=== PATIENT | female | born 1935 | race Caucasian/White ===

== ENCOUNTER 2019-10-21 06:29 | Emergency (ER) | payer MEDICARE, SELFPAY ==
--- NOTE | ~2019-10-21 | XR_ITS ---
EXAMINATION: XR chest 2V DATE: 10/21/2019 07:57 INDICATION: Cough and fever TECHNIQUE: PA and lateral views of the chest were obtained. COMPARISON: Chest radiograph and CT dated 07/22/2019 FINDINGS: The lungs are clear with no focal airspace opacities, pulmonary edema, pleural effusion or pneumothor ax. Mild cardiomegaly. Dual lead pacemaker seen with leads projecting over the expected locations of the right atrium and right ventricle. Median sternotomy wires and mediastinal surgical clips are seen , likely from prior coronary artery bypass grafting likely coronary artery stent. Cholecystectomy cli ps in the right upper quadrant. Mild thoracolumbar spondylosis. IMPRESSION: 1. Cardiomegaly. Reviewed, dictated and finalized at location A. [employer] COUNSEL[employer] IMPRESSION: 1. Cardiomegaly.
[2019-10-21 06:52] VITALS: BP 125/68; PULSE 87; RESP 20; TEMP 36.9; O2SAT 94
--- NOTE | 2019-10-21 06:56 | ED.AMS ---
HPI - Altered Mental Status General Chief Complaint: Altered Mental Status <Antony Ballard MD - Last Filed: 10/26/19 07:44> Stated Complaint: ambulance <Antony Ballard MD - Last Filed: 10/26/19 07:44> Time Seen by Provider: 10/21/19 07:17 <Antony Ballard MD - Last Filed: 10/26/19 07:44> Source: patient and family () <Antony Ballard MD - Last Filed: 10/26/19 07:44> Mode of arrival: EMS <Antony Ballard MD - Last Filed: 10/26/19 07:44> Limitations: no limitations <Antony Ballard MD - Last Filed: 10/26/19 07:44> History of Present Illness HPI narrative: This 84-year-old female was found by her confused and yelling out about 5:00 a.m. this morning. She had a blood sugar of 44. And was which brought the blood sugar up to 89 and resolved her confusion. She has type 2 diabetes takes Humulin 70/30 30 units subcu b.i.d.. She also takes metformin. For the last few days she has had a runny nose slight sore throat and occasional coughing no fever. She had some ice cream yesterday evening. She took her insulin a 2 hours later than usual. She has no history hypoglycemic episodes. She states her blood sugar last night was 346. Her blood sugars are taken twice a day and usually run between 100 and 150. There is been no recent change in her insulin. <Antony Ballard MD - Last Filed: 10/26/19 07:44> MD complaint: altered mental status <Antony Ballard MD - Last Filed: 10/26/19 07:44> Related Data Home Medications: Home Medications Medication Instructions Recorded Confirmed Xarelto 25 mg PO HS 07/22/19 10/23/19 amitriptyline 50 mg PO HS 07/22/19 10/23/19 aspirin [Aspir-81] 81 mg PO DAILY 07/22/19 10/23/19 carvedilol 6.25 mg PO BID 07/22/19 10/23/19 furosemide 40 mg PO DAILY 07/22/19 10/23/19 levothyroxine [Synthroid] 137 mcg PO DAILY 07/22/19 10/23/19 metformin 500 mg PO DAILY 07/22/19 10/23/19 potassium chloride 10 meq PO DAILY 07/22/19 10/23/19 rosuvastatin 20 mg PO HS 07/22/19 10/23/19 <Antony Ballard MD - Last Filed: 10/26/19 07:44> Allergies/Adverse Reactions: Allergies Allergy/AdvReac Type Severity Reaction Status Date / Time adhesive tape Allergy Severe BLISTERS Verified 07/22/19 21:19 amiodarone Allergy Severe N/V, Verified 07/22/19 21:19 HEADACHE, HOSPITALIZED atorvastatin Allergy Severe SWELLING Verified 07/22/19 21:19 butorphanol Allergy Severe RESTLESSNES Verified 07/22/19 21:19 S cerivastatin Allergy Severe ABDOMINAL Verified 07/22/19 21:19 PAIN, H/A clindamycin Allergy Severe TACHYCARDIA Verified 07/22/19 21:19 dexamethasone Allergy Severe IRRITATED Verified 07/22/19 21:19 EYES duloxetine Allergy Severe H/A Verified 07/22/19 21:19 enalaprilat Allergy Severe COUGH Verified 07/22/19 21:19 gabapentin Allergy Severe CHF Verified 07/22/19 21:19 gemfibrozil Allergy Severe ELEVATED Verified 07/22/19 21:19 CHOLESTEROL guaifenesin Allergy Severe NERVOUSNESS Verified 07/22/19 21:19 hydrocodone Allergy Severe N/V Verified 07/22/19 21:19 isosorbide Allergy Severe H/A Verified 07/22/19 21:19 ketorolac Allergy Severe CHEST PAIN Verified 07/22/19 21:19 levofloxacin Allergy Severe VOMITING Verified 07/22/19 21:19 meperidine Allergy Severe H/A Verified 07/22/19 21:19 nifedipine Allergy Severe SWELLING Verified 07/22/19 21:19 nitroglycerin Allergy Severe VOMITING Verified 03/26/18 09:48 norfloxacin Allergy Severe SWELLING Verified 07/22/19 21:19 oxycodone Allergy Severe VOMITING Verified 07/22/19 21:19 phenylephrine Allergy Severe NERVOUSNESS Verified 07/22/19 21:19 phenylpropanolamine Allergy Severe NERVOUSNESS Verified 07/22/19 21:19 prednisone Allergy Severe H/A Verified 07/22/19 21:19 rofecoxib Allergy Severe UPSET Verified 07/22/19 21:19 STOMACH, CAN TAKE WITH MEALS tobramycin Allergy Severe IRRITATED Verified 07/22/19 21:19 EYES acetaminophen [Vicodin] Allergy Intermediate Unknown Verified 07/22/19 21:19 ad
[2019-10-21 07:19] LABS: Hematocrit 33.2 % (35.0-42.0); Mean Corpuscular HGB Conc 33.1 g/dL (32.0-36.0); Mean Corpuscular Hemoglobin 30.6 pg (27.0-31.0); Mean Corpuscular Volume 92.5 fL (78.0-102.0); Mean Platelet Volume 9.8 fl (9.2-11.8); Platelet Count Result 160 K/mm3 (150-420); Red Blood Count 3.59 M/mm3 (4.20-5.40); Red Cell Distribution Width 13.4 % (11.6-14.4); White Blood Count 8.2 K/mm3 (4.8-10.8)
[2019-10-21 07:32] LABS: Alanine Aminotransferase 27 U/L (14-59); Albumin Level 3.6 g/dL (3.4-5.0); Alkaline Phosphatase 95 U/L (46-116); Anion Gap 12.9 mmol/L (7-16); Aspartate Amino Transferase 19 U/L (15-37); Bilirubin,Total 0.4 mg/dL (0.00-1.00); Blood Urea Nitrogen 26 mg/dL (7-18); Carbon Dioxide 28 mmol/L (21-32); Chloride 101 mmol/L (98-108); Estimated CRCL calculation 29 ml/min; Estimated Glomerular Filt Rate 45; Glucose 166 mg/dL (70-99); Osmolality Calculated 294 mOsm/kg (285-295); Potassium 3.9 mmol/L (3.5-5.1); Sodium 138 mmol/L (136-145); Total Protein 7.4 g/dL (6.4-8.2)
[2019-10-21 07:42] LABS: Add Urine Microscopic? YES; Appearance Urine Cloudy (Clear); Bilirubin Urine Negative (Negative); Blood Urine 1+ (Negative); Color Urine Yellow (Yellow); Glucose Urine UA Negative (Negative); Ketones Urine Negative (Negative); Leukocyte Esterase Ur 3+ LEU/UL (Negative); Nitrate Urine Negative (Negative); Protein Urine Negative (Negative); Urobilinogen Urine 0.2 mg/dL (0.2-1.0); pH Urine 5.5 (5.0-8.0)
[2019-10-21 07:46] LABS: Bacteria Urine 2+ /hpf; RBC Urine 0-2 /hpf (0-2); Squamous Epithelial Cell Urine Rare /hpf (Few); WBC Urine >75 /hpf (0-3)
--- NOTE | 2019-10-21 08:15 | PC.NURSE ---
pt reports burning upon urination at times
[2019-10-21 08:22] LABS: Influenza Control Valid (Valid)
[2019-10-21 10:04] VITALS: BP 112/68; PULSE 82; RESP 20; TEMP 36.6; O2SAT 97
[2019-10-21 10:05] LABS: Glucose Point of Care 100 (65-105)
== END 2019-10-21 10:05 | disposition home or self-care (01) ==
PROVIDERS: Family Medicine; Emergency Provider Surgery; PCP Nurse Practitioner Family
DX: E11.649 Type 2 diabetes mellitus with hypoglycemia without coma (principal); N39.0 Urinary tract infection, site not specified
CPT/HCPCS: 36415; 71046; 80053; 81001; 85027; 87077; 87086; 87088; 87186; 87804; 99283

== ENCOUNTER 2019-10-23 11:31 | Outpatient (CLI) | payer MEDICARE, SELFPAY ==
[2019-10-23 12:15] LABS: Creatinine Urine 34.32 mg/dL (40-278)
[2019-10-23 12:17] LABS: Hemoglobin A1C 7.5 % (<5.7)
[2019-10-23 12:46] LABS: Alanine Aminotransferase 35 U/L (14-59); Albumin Level 4.1 g/dL (3.4-5.0); Alkaline Phosphatase 111 U/L (46-116); Anion Gap 13.2 mmol/L (7-16); Aspartate Amino Transferase 28 U/L (15-37); Bilirubin,Total 0.3 mg/dL (0.00-1.00); Blood Urea Nitrogen 26 mg/dL (7-18); Calcium 9.1 mg/dL (8.5-10.1); Carbon Dioxide 28 mmol/L (21-32); Chloride 101 mmol/L (98-108); Estimated Glomerular Filt Rate 39; Glucose 196 mg/dL (70-99); Osmolality Calculated 293 mOsm/kg (285-295); Potassium 5.2 mmol/L (3.5-5.1); Sodium 137 mmol/L (136-145); Total Protein 7.5 g/dL (6.4-8.2)
[2019-10-23 12:53] LABS: MALB Creatinine Ratio 75.1 mg/g (0-30); Microalbumin Urine Random 25.8 mg/L
== END 2019-10-23 11:32 | disposition home or self-care (01) ==
LOC: CHSLAB 11:32
PROVIDERS: PCP Nurse Practitioner Family; Visit Provider Nurse Practitioner Family
DX: E11.9 Type 2 diabetes mellitus without complications (principal)
CPT/HCPCS: 36415; 80053; 82043; 83036

== ENCOUNTER 2019-11-05 08:12 | Outpatient (CLI) | payer MEDICARE, SELFPAY ==
[2019-11-05 09:04] LABS: Anion Gap 14.9 mmol/L (7-16); Blood Urea Nitrogen 36 mg/dL (7-18); Carbon Dioxide 25 mmol/L (21-32); Chloride 98 mmol/L (98-108); Estimated Glomerular Filt Rate 31; Glucose 235 mg/dL (70-99); Osmolality Calculated 292 mOsm/kg (285-295); Potassium 4.9 mmol/L (3.5-5.1); Sodium 133 mmol/L (136-145)
== END 2019-11-05 08:13 | disposition home or self-care (01) ==
LOC: CHSLAB 08:14
PROVIDERS: PCP Nurse Practitioner Family; Visit Provider Internal Medicine Cardiovascular Disease
DX: I50.30 Unspecified diastolic (congestive) heart failure (principal)
CPT/HCPCS: 36415; 80048

== ENCOUNTER 2019-11-09 23:52 | Emergency (ER) | payer MEDICARE, SELFPAY ==
[2019-11-10 00:02] VITALS: BP 161/94; PULSE 92; RESP 20; TEMP 36.8; O2SAT 99
--- NOTE | 2019-11-10 00:12 | ED.FEMALEGU ---
HPI - Female Genitourinary General Chief complaint: Urogenital-Female Stated complaint: Vaginal pain Time Seen by Provider: 11/10/19 00:12 Source: patient and family Mode of arrival: ambulatory Limitations: no limitations History of Present Illness HPI Narrative: 84-year-old woman comes in today complaining of burning perineal pain that started 1-2 days ago. He states her pain is worse when she urinates. She also states that something is falling out of her when she stands or sits. She denies fever, nausea, vomiting, abdominal pain, vaginal bleeding and vaginal discharge. She was diagnosed and treated for UTI approximately 3 weeks ago. She denies history of kidney stones. MD elicited complaint: dysuria, urinary incontinence and prolapse Pertinent past history: diabetes Onset (ago): day(s) (1-2) Location of symptoms: urethra and vaginal Severity: severe Female Urogenital Radiation: Non-Radiating Quality of pain: sharp and burning Consistency: constant and progressively worsening Vaginal discharge: none Vaginal bleeding: none Urinary symptoms: Dysuria, Urgency and Difficulty Urinating Exacerbating factors: urination Relieving factors: none Treatment prior to arrival: none Sexual activity: No Patient : No Related Data Home Medications Medication Instructions Recorded Confirmed Xarelto 25 mg PO HS 07/22/19 11/10/19 amitriptyline 50 mg PO HS 07/22/19 11/10/19 aspirin [Aspir-81] 81 mg PO DAILY 07/22/19 11/10/19 carvedilol 6.25 mg PO BID 07/22/19 11/10/19 furosemide 20 mg PO BID 07/22/19 11/10/19 levothyroxine [Synthroid] 137 mcg PO DAILY 07/22/19 11/10/19 rosuvastatin 20 mg PO HS 07/22/19 11/10/19 fosinopril 10 mg PO BID 11/10/19 11/10/19 potassium chloride [Klor-Con 10] 10 meq PO DAILY 11/10/19 11/10/19 spironolactone 25 mg PO DAILY 11/10/19 11/10/19 Allergies Allergy/AdvReac Type Severity Reaction Status Date / Time adhesive tape Allergy Severe BLISTERS Verified 11/04/19 15:24 amiodarone Allergy Severe N/V, Verified 11/04/19 15:24 HEADACHE, HOSPITALIZED atorvastatin Allergy Severe SWELLING Verified 11/04/19 15:24 butorphanol Allergy Severe RESTLESSNES Verified 11/04/19 15:24 S cerivastatin Allergy Severe ABDOMINAL Verified 11/04/19 15:24 PAIN, H/A clindamycin Allergy Severe TACHYCARDIA Verified 11/04/19 15:24 dexamethasone Allergy Severe IRRITATED Verified 11/04/19 15:24 EYES duloxetine Allergy Severe H/A Verified 11/04/19 15:24 enalaprilat Allergy Severe COUGH Verified 11/04/19 15:24 gabapentin Allergy Severe CHF Verified 11/04/19 15:24 gemfibrozil Allergy Severe ELEVATED Verified 11/04/19 15:24 CHOLESTEROL guaifenesin Allergy Severe NERVOUSNESS Verified 11/04/19 15:24 hydrocodone Allergy Severe N/V Verified 11/04/19 15:24 isosorbide Allergy Severe H/A Verified 11/04/19 15:24 ketorolac Allergy Severe CHEST PAIN Verified 11/04/19 15:24 levofloxacin Allergy Severe VOMITING Verified 11/04/19 15:24 meperidine Allergy Severe H/A Verified 11/04/19 15:24 nifedipine Allergy Severe SWELLING Verified 11/04/19 15:24 nitroglycerin Allergy Severe VOMITING Verified 11/04/19 15:24 norfloxacin Allergy Severe SWELLING Verified 11/04/19 15:24 oxycodone Allergy Severe VOMITING Verified 11/04/19 15:24 phenylephrine Allergy Severe NERVOUSNESS Verified 11/04/19 15:24 phenylpropanolamine Allergy Severe NERVOUSNESS Verified 11/04/19 15:24 prednisone Allergy Severe H/A Verified 11/04/19 15:24 rofecoxib Allergy Severe UPSET Verified 11/04/19 15:24 STOMACH, CAN TAKE WITH MEALS tobramycin Allergy Severe IRRITATED Verified 11/04/19 15:24 EYES acetaminophen [Vicodin] Allergy Intermediate Unknown Verified 11/04/19 15:24 adhesive Allergy Intermediate Unknown Verified 11/04/19 15:24 cephalexin Allergy Intermediate Unknown Verified 11/04/19 15:24 chlorpheniramine [Ornade] Allergy Intermediate Unknown Verified 11/04/19 15:24 codeine Allergy Intermediate Unknown Verified 11/04/19 15:24 doxycycline Allergy
[2019-11-10] MEDS: ONDANSETRON INJ 4 MG/2 ML VIAL IV PUSH (00:28)
[2019-11-10] MEDS: MORPHINE SULFATE 2 MG/ML INJ IV PUSH (00:29)
[2019-11-10 00:49] LABS: Basophils Absolute Auto 0.03 K/mm3 (0.00-0.10); Basophils Percent Auto 0.3 % (0.0-1.0); Eosinophils Absolute Auto 0.17 K/mm3 (0.02-0.50); Eosinophils Percent Auto 1.6 % (1.0-6.0); Hematocrit 35.7 % (35.0-42.0); Hemoglobin 12.3 g/dL (11.7-13.8); Immature Granulocyte Absolute 0.03 K/mm3 (0.00-0.00); Immature Granulocyte Percent A 0.3 % (0.0-0.0); Lymphocytes Absolute Auto 1.84 K/mm3 (1.10-4.50); Lymphocytes Percent Auto 16.8 % (18.0-42.0); Mean Corpuscular HGB Conc 34.5 g/dL (32.0-36.0); Mean Corpuscular Hemoglobin 30.9 pg (27.0-31.0); Mean Corpuscular Volume 89.7 fL (78.0-102.0); Mean Platelet Volume 10.5 fl (9.2-11.8); Monocytes Absolute Auto 0.65 K/mm3 (0.10-0.90); Neutrophils Absolute Auto 8.2 K/mm3 (1.7-7.2); Platelet Count Result 191 K/mm3 (150-420); Red Blood Count 3.98 M/mm3 (4.20-5.40); Red Cell Distribution Width 13.3 % (11.6-14.4); White Blood Count 10.9 K/mm3 (4.8-10.8)
[2019-11-10] MEDS: PHENAZOPYRIDINE HCL 100 MG TABLET 200 MG PO (00:55)
[2019-11-10 01:03] LABS: Add Urine Microscopic? YES; Appearance Urine Clear (Clear); Bilirubin Urine Negative (Negative); Blood Urine 3+ (Negative); Color Urine Yellow (Yellow); Glucose Urine UA Negative (Negative); Ketones Urine Negative (Negative); Leukocyte Esterase Ur 3+ LEU/UL (Negative); Nitrate Urine Negative (Negative); Protein Urine Negative (Negative); Specific Grav Ur 1.015 (1.010-1.020); Urobilinogen Urine 0.2 mg/dL (0.2-1.0); pH Urine 5.5 (5.0-8.0)
[2019-11-10 01:05] LABS: Occult Blood Negative (Negative)
[2019-11-10 01:10] LABS: Bacteria Urine 4+ /hpf; RBC Urine 51-75 /hpf (0-2); Squamous Epithelial Cell Urine Few /hpf (Few); WBC Urine >75 /hpf (0-3)
[2019-11-10 01:10] LABS: INR 1.1; Partial Thromboplastin Time 29.4 SEC (22.3-31.6); Prothrombin Time 11.7 Seconds (9.64-11.0)
[2019-11-10 01:14] LABS: Alanine Aminotransferase 34 U/L (14-59); Albumin Level 4.2 g/dL (3.4-5.0); Alkaline Phosphatase 105 U/L (46-116); Anion Gap 20.3 mmol/L (7-16); Aspartate Amino Transferase 20 U/L (15-37); Bilirubin,Total 0.4 mg/dL (0.00-1.00); Blood Urea Nitrogen 35 mg/dL (7-18); Calcium 9.1 mg/dL (8.5-10.1); Carbon Dioxide 21 mmol/L (21-32); Chloride 99 mmol/L (98-108); Estimated CRCL calculation 21 ml/min; Estimated Glomerular Filt Rate 31; Glucose 268 mg/dL (70-99); Osmolality Calculated 299 mOsm/kg (285-295); Potassium 4.3 mmol/L (3.5-5.1); Sodium 136 mmol/L (136-145)
[2019-11-10 01:31] VITALS: BP 130/82; PULSE 80; RESP 18; O2SAT 99
== END 2019-11-10 01:42 | disposition home or self-care (01) ==
PROVIDERS: Emergency Provider Emergency Medicine; PCP Nurse Practitioner Family
DX: N39.0 Urinary tract infection, site not specified (principal); Z79.01 Long term (current) use of anticoagulants; E11.9 Type 2 diabetes mellitus without complications; I10 Essential (primary) hypertension; E78.5 Hyperlipidemia, unspecified; E03.9 Hypothyroidism, unspecified
CPT/HCPCS: 36415; 80053; 81001; 82272; 85025; 85610; 85730; 87040; 87077; 87086; 87088; 87186; 96374; 96375; 99283; 99284; A9270; J2270; J2405

== ENCOUNTER 2019-11-23 20:03 | Emergency (ER) | payer MEDICARE, SELFPAY ==
--- NOTE | 2019-11-23 20:22 | ED.NAVMDI ---
HPI - Nausea/Vomiting/Diarrhea General Chief complaint: Nausea/Vomiting/Diarrhea Stated complaint: Diarrhea Time Seen by Provider: 11/23/19 20:22 Source: patient and family Mode of arrival: ambulatory Limitations: no limitations History of Present Illness HPI Narrative: 84-year-old woman comes in today complaining of diarrhea with many episodes yesterday some of which had bright red blood. She had 2 episodes of watery stools today. She has had no melena. She states that her abdomen is somewhat sore, but she has no pain or tenderness. She denies nausea, vomiting, fever, dysuria, hematuria, bruising, rash, nausea, vomiting, chest pain, shortness of breath, lightheadedness. She took Bactrim for 7 days for a UTI starting on November 09. she denies sick contacts. Patient states that she took Imodium yesterday and today [facility] MD elicited complaint: diarrhea Onset (ago): day(s) (1) Description of vomiting: bloody Description of diarrhea: watery Associated nausea: No Associated abdominal pain: No Location of pain: none Pain consistency: other ( improving) Severity: moderate ( improved) Quality: other ( soreness ) Exacerbating factors: none Relieving factors: none Context: recent antibiotic use Treatment prior to arrival: none Related Data Home Medications Medication Instructions Recorded Confirmed Xarelto 25 mg PO HS 07/22/19 11/23/19 amitriptyline 50 mg PO HS 07/22/19 11/23/19 aspirin [Aspir-81] 81 mg PO DAILY 07/22/19 11/23/19 carvedilol 6.25 mg PO BID 07/22/19 11/23/19 furosemide 20 mg PO BID 07/22/19 11/23/19 levothyroxine [Synthroid] 137 mcg PO DAILY 07/22/19 11/23/19 fosinopril 10 mg PO BID 11/10/19 11/23/19 potassium chloride [Klor-Con 10] 10 meq PO DAILY 11/10/19 11/23/19 spironolactone 25 mg PO DAILY 11/10/19 11/23/19 semaglutide 0.25 mg SUB-Q WEEKLY 11/11/19 11/23/19 Allergies Allergy/AdvReac Type Severity Reaction Status Date / Time adhesive tape Allergy Severe BLISTERS Verified 11/20/19 10:27 amiodarone Allergy Severe N/V, Verified 11/20/19 10:27 HEADACHE, HOSPITALIZED atorvastatin Allergy Severe SWELLING Verified 11/20/19 10:27 butorphanol Allergy Severe RESTLESSNES Verified 11/20/19 10:27 S cerivastatin Allergy Severe ABDOMINAL Verified 11/20/19 10:27 PAIN, H/A clindamycin Allergy Severe TACHYCARDIA Verified 11/20/19 10:27 dexamethasone Allergy Severe IRRITATED Verified 11/20/19 10:27 EYES duloxetine Allergy Severe H/A Verified 11/20/19 10:27 enalaprilat Allergy Severe COUGH Verified 11/20/19 10:27 gabapentin Allergy Severe CHF Verified 11/20/19 10:27 gemfibrozil Allergy Severe ELEVATED Verified 11/20/19 10:27 CHOLESTEROL guaifenesin Allergy Severe NERVOUSNESS Verified 11/20/19 10:27 hydrocodone Allergy Severe N/V Verified 11/20/19 10:27 isosorbide Allergy Severe H/A Verified 11/20/19 10:27 ketorolac Allergy Severe CHEST PAIN Verified 11/20/19 10:27 levofloxacin Allergy Severe VOMITING Verified 11/20/19 10:27 meperidine Allergy Severe H/A Verified 11/20/19 10:27 nifedipine Allergy Severe SWELLING Verified 11/20/19 10:27 nitroglycerin Allergy Severe VOMITING Verified 11/20/19 10:27 norfloxacin Allergy Severe SWELLING Verified 11/20/19 10:27 oxycodone Allergy Severe VOMITING Verified 11/20/19 10:27 phenylephrine Allergy Severe NERVOUSNESS Verified 11/20/19 10:27 phenylpropanolamine Allergy Severe NERVOUSNESS Verified 11/20/19 10:27 prednisone Allergy Severe H/A Verified 11/20/19 10:27 rofecoxib Allergy Severe UPSET Verified 11/20/19 10:27 STOMACH, CAN TAKE WITH MEALS tobramycin Allergy Severe IRRITATED Verified 11/20/19 10:27 EYES acetaminophen [Vicodin] Allergy Intermediate Unknown Verified 11/20/19 10:27 adhesive Allergy Intermediate Unknown Verified 11/20/19 10:27 cephalexin Allergy Intermediate Unknown Verified 11/20/19 10:27 chlorpheniramine [Ornade] Allergy Intermediate Unknown Verified 11/20/19 10:27 codeine Allergy Intermedia
[2019-11-23 20:31] VITALS: BP 136/76; PULSE 98; RESP 16; TEMP 36.4; O2SAT 98
[2019-11-23 20:40] VITALS: BP 127/74
[2019-11-23 20:43] VITALS: BP 98/54; PULSE 55
[2019-11-23 20:44] LABS: Basophils Absolute Auto 0.02 K/mm3 (0.00-0.10); Basophils Percent Auto 0.3 % (0.0-1.0); Eosinophils Absolute Auto 0.24 K/mm3 (0.02-0.50); Eosinophils Percent Auto 3.1 % (1.0-6.0); Hemoglobin 10.7 g/dL (11.7-13.8); Immature Granulocyte Absolute 0.03 K/mm3 (0.00-0.00); Immature Granulocyte Percent A 0.4 % (0.0-0.0); Lymphocytes Absolute Auto 1.41 K/mm3 (1.10-4.50); Lymphocytes Percent Auto 18.5 % (18.0-42.0); Mean Corpuscular HGB Conc 33.4 g/dL (32.0-36.0); Mean Corpuscular Hemoglobin 31.1 pg (27.0-31.0); Mean Platelet Volume 9.8 fl (9.2-11.8); Monocytes Absolute Auto 0.56 K/mm3 (0.10-0.90); Monocytes Percent Auto 7.3 % (2.0-11.0); Neutrophils Absolute Auto 5.4 K/mm3 (1.7-7.2); Neutrophils Percent Auto 70.4 % (50.0-70.0); Platelet Count Result 188 K/mm3 (150-420); Red Blood Count 3.44 M/mm3 (4.20-5.40); Red Cell Distribution Width 13.9 % (11.6-14.4); White Blood Count 7.6 K/mm3 (4.8-10.8)
[2019-11-23 20:54] LABS: INR 1.2; Partial Thromboplastin Time 30.5 SEC (22.3-31.6); Prothrombin Time 12.7 Seconds (9.64-11.0)
[2019-11-23 20:58] LABS: Alanine Aminotransferase 29 U/L (14-59); Albumin Level 4.2 g/dL (3.4-5.0); Alkaline Phosphatase 92 U/L (46-116); Anion Gap 14.3 mmol/L (7-16); Aspartate Amino Transferase 19 U/L (15-37); Bilirubin,Total 0.4 mg/dL (0.00-1.00); Blood Urea Nitrogen 43 mg/dL (7-18); Calcium 9.4 mg/dL (8.5-10.1); Carbon Dioxide 27 mmol/L (21-32); Chloride 98 mmol/L (98-108); Estimated CRCL calculation 23 ml/min; Estimated Glomerular Filt Rate 35; Glucose 230 mg/dL (70-99); Osmolality Calculated 297 mOsm/kg (285-295); Potassium 4.3 mmol/L (3.5-5.1); Sodium 135 mmol/L (136-145); Total Protein 7.7 g/dL (6.4-8.2)
--- NOTE | 2019-11-23 21:02 | PC.NURSE ---
Pt attempted to provide stool sample without success.
[2019-11-23 21:43] LABS: Occult Blood Negative (Negative)
--- NOTE | 2019-11-23 22:00 | PC.NURSE ---
Pt able to drink to full cups of water for hydration w/o difficulty.
[2019-11-23 22:19] VITALS: BP 128/67; PULSE 72; RESP 16
== END 2019-11-23 22:22 | disposition home or self-care (01) ==
PROVIDERS: Emergency Provider Emergency Medicine; PCP Family Medicine
DX: R19.7 Diarrhea, unspecified (principal); Z79.01 Long term (current) use of anticoagulants; E11.9 Type 2 diabetes mellitus without complications; I10 Essential (primary) hypertension; E78.5 Hyperlipidemia, unspecified; E03.9 Hypothyroidism, unspecified
CPT/HCPCS: 36415; 80053; 82272; 85025; 85610; 85730; 99282; 99283

== ENCOUNTER 2019-12-04 08:12 | Outpatient (CLI) | payer MEDICARE, SELFPAY ==
--- NOTE | ~2019-12-04 | CT_ITS ---
EXAMINATION: CT abdomen pelvis w con DATE: 12/04/2019 08:47 INDICATION: Diarrhea. Blood in stool. TECHNIQUE: Computed tomography (CT) of the abdomen and pelvis was performed with 100 cc Omnipaque 350 intravenous contrast. The dose-length product was 373.33 mGy-cm. Automated exposure control and iter ative reconstruction technique were employed. COMPARISON: CT dated 07/22/2019 FINDINGS: Cardiomegaly. Lung bases are unremarkable. There is atherosclerosis. No significant pleural or pericardial effusion. Status post cholecystectomy. The liver, spleen, adrenal glands are unremarkable. There are small subc entimeter hypodensities of the kidneys, most likely benign cysts. There is pancreatic atrophy. Bowel pattern is nonobstructive. Bladder is moderately distended. No focal bowel abnormalities. No abnormal pelvic masses or fluid collections. There is suggestion of mild thickening of the rectum. Underlying mass cannot be excluded. There are healed right superior and inferior pubic rami fractures. Moderate osteoarthritis of the hips. Moderate lumbar spondylosis. No lymphadenopathy. There are are changes o f median sternotomy for CABG. IMPRESSION: 1. Possible thickening of the rectum. Correlation with digital rectal examination recommended. Cannot exclude underlying mass. Reviewed, dictated and finalized at location A. IMPRESSION: 1. Possible thickening of the rectum. Correlation with digital rectal examinati on recommended. Cannot exclude underlying mass.
== END 2019-12-04 08:13 | disposition home or self-care (01) ==
LOC: CHSIMG 08:14
PROVIDERS: PCP Family Medicine; Visit Provider Family Medicine
DX: R10.9 Unspecified abdominal pain (principal); K62.5 Hemorrhage of anus and rectum; N18.3 Chronic kidney disease, stage 3 (moderate)
CPT/HCPCS: 74177; Q9965

== ENCOUNTER 2020-01-14 00:26 | Day surgery (SDC) | payer MEDICARE, SELFPAY ==
[2020-01-09 12:17] VITALS: BMI 23.1
--- NOTE | 2020-01-14 06:41 | WPDANESEPPF ---
Anes - Initial Pre Proc Eval Procedure: Operation Date: 01/14/20 07:00 Proposed Procedures p Colonoscopy, Possible Esophagogastroduodenoscopy - Nicolas Myers MD Date/Time: 01/14/20 06:41 Surgeon: Nicolas Myers MD Pre Op Diagnosis: Rectal Bleeding/ Abnormal CAT Scan/ Gerd Patient Data Age: 84 Gender: F Height: 5 ft 4 in Weight: 61 kg Allergies Allergy/AdvReac Type Severity Reaction Status Date / Time adhesive tape Allergy Severe BLISTERS Verified 01/03/20 11:29 amiodarone Allergy Severe N/V, Verified 01/03/20 11:29 HEADACHE, HOSPITALIZED atorvastatin Allergy Severe SWELLING Verified 01/03/20 11:29 butorphanol Allergy Severe RESTLESSNES Verified 01/03/20 11:29 S cerivastatin Allergy Severe ABDOMINAL Verified 01/03/20 11:29 PAIN, H/A clindamycin Allergy Severe TACHYCARDIA Verified 01/03/20 11:29 dexamethasone Allergy Severe IRRITATED Verified 01/03/20 11:29 EYES duloxetine Allergy Severe H/A Verified 01/03/20 11:29 enalaprilat Allergy Severe COUGH Verified 01/03/20 11:29 gabapentin Allergy Severe CHF Verified 01/03/20 11:29 gemfibrozil Allergy Severe ELEVATED Verified 01/03/20 11:29 CHOLESTEROL guaifenesin Allergy Severe NERVOUSNESS Verified 01/03/20 11:29 hydrocodone Allergy Severe N/V Verified 01/03/20 11:29 isosorbide Allergy Severe H/A Verified 01/03/20 11:29 ketorolac Allergy Severe CHEST PAIN Verified 01/03/20 11:29 levofloxacin Allergy Severe VOMITING Verified 01/03/20 11:29 meperidine Allergy Severe H/A Verified 01/03/20 11:29 nifedipine Allergy Severe SWELLING Verified 01/03/20 11:29 nitroglycerin Allergy Severe VOMITING Verified 01/03/20 11:29 norfloxacin Allergy Severe SWELLING Verified 01/03/20 11:29 oxycodone Allergy Severe VOMITING Verified 01/03/20 11:29 phenylephrine Allergy Severe NERVOUSNESS Verified 01/03/20 11:29 phenylpropanolamine Allergy Severe NERVOUSNESS Verified 01/03/20 11:29 prednisone Allergy Severe H/A Verified 01/03/20 11:29 rofecoxib Allergy Severe UPSET Verified 01/03/20 11:29 STOMACH, CAN TAKE WITH MEALS tobramycin Allergy Severe IRRITATED Verified 01/03/20 11:29 EYES acetaminophen [Vicodin] Allergy Intermediate Unknown Verified 01/03/20 11:29 adhesive Allergy Intermediate Unknown Verified 01/03/20 11:29 cephalexin Allergy Intermediate Unknown Verified 01/03/20 11:29 chlorpheniramine [Ornade] Allergy Intermediate Unknown Verified 01/03/20 11:29 codeine Allergy Intermediate Unknown Verified 01/03/20 11:29 doxycycline Allergy Intermediate Unknown Verified 01/03/20 11:29 erythromycin base Allergy Intermediate Unknown Verified 01/03/20 11:29 flurbiprofen [Ansaid] Allergy Intermediate Unknown Verified 01/03/20 11:29 tetracycline Allergy Intermediate Unconscious Verified 01/03/20 11:29 tramadol [Ultram] Allergy Intermediate Unknown Verified 01/03/20 11:29 ciprofloxacin Allergy Unknown Unknown Verified 01/03/20 11:29 diclofenac Allergy Unknown Unknown Verified 01/03/20 11:29 hydroxyzine Allergy Unknown Unknown Verified 01/03/20 11:29 Penicillins Allergy Unknown Unknown Verified 01/03/20 11:29 propoxyphene Allergy Unknown Unknown Verified 01/03/20 11:29 terfenadine Allergy Unknown Unknown Verified 01/03/20 11:29 Home Medications Medication Instructions Recorded Confirmed Type Xarelto 25 mg PO HS 07/22/19 01/09/20 History amitriptyline 50 mg PO HS 07/22/19 01/09/20 History aspirin [Aspir-81] 81 mg PO DAILY 07/22/19 01/09/20 History carvedilol 6.25 mg PO BID 07/22/19 01/09/20 History levothyroxine [Synthroid] 137 mcg PO DAILY 07/22/19 01/09/20 History blood sugar diagnostic #100 each 09/03/19 01/03/20 Rx potassium chloride [Klor-Con 10] 10 meq PO DAILY 11/10/19 01/09/20 History spironolactone 25 mg PO DAILY 11/10/19 01/09/20 History rosuvastatin 20 mg tablet 20 mg PO HS #90 tablet 11/18/19 01/09/20 Rx semaglutide 0.5 mg SUB-Q WEEKLY #1.5 ml 12/03/19 01/09/20 Rx omeprazole magnesium 20 mg 20 mg PO DAILY #90 cap 12/16/19 01/09/20 Rx capsule,delayed
[2020-01-14] MEDS: LACTATED RINGERS 1,000 ML 150 ML IV CONT (07:01)
[2020-01-14 07:06] LABS: Glucose Point of Care 124 (65-105)
[2020-01-14 07:19] VITALS: BP 114/83; PULSE 92; RESP 22; TEMP 36.4; O2SAT 89; BMI 22.3
--- NOTE | 2020-01-14 07:28 | SUR.PREOP ---
01/14/20 0625 O2 PER NASAL CANNULA AT 2 L APPLIED. 01/14/20 0645 PULSE OX RE-CHECKED 100 %, PATIENT RESTING COMFORTABLE NARA FRANCO
--- NOTE | 2020-01-14 07:38 | WPDGICN ---
Assessment and Plan Assessment and plan (1) Abdominal pain: Code(s): R10.9 - Unspecified abdominal pain Status: Acute Assessment and Plan: Patient has vague diffuse abdominal pain bloating. Plan to evaluate with colonoscopy. (2) Diarrhea: Code(s): R19.7 - Diarrhea, unspecified Status: Chronic (3) Rectal bleeding: Code(s): K62.5 - Hemorrhage of anus and rectum Status: Acute (4) Chronic anticoagulation: Code(s): Z79.01 - penitentiary (current) use of anticoagulants Status: Acute Assessment and Plan: Patient anticoagulated with Xarelto because of coronary artery bypass grafting and valve repair. Xarelto will be held briefly during endoscopy. (5) Abnormal CT scan: Code(s): R93.89 - Abnormal findings on diagnostic imaging of other specified body structures Status: Acute Assessment and Plan: Abnormal rectum with thickening identified on CT scan. Plan is to evaluate with colonoscopy. (6) GERD (gastroesophageal reflux disease): Code(s): K21.9 - Gastro-esophageal reflux disease without esophagitis Status: Acute Assessment and Plan: Patient has a history of acid reflux disease treated with omeprazole 20 mg p.o. 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 GI Consult Note Consult date/time: 01/14/20 07:38 HPI: Dinorah Thorpe is a 84 year old female Seen in evaluation at the request of Dr. Arias. patient has complaints of abdominal bloating, diffuse mid abdominal pain for the last 7 months. She states that she feels distended and firm . She is notice bright red blood per rectum on at least 2 occasions. Patient notices occasional diarrhea intermittently. She denies any fevers. She denies weight loss. 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 A CT scan of the abdomen was performed which revealed thickening to the rectal area. Patient's past history is significant for Xarelto anticoagulation. 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 Rectal bleeding Surgical History Surgical History History of heart valve replacement S/P CABG (coronary artery bypass graft) Family History Family History Mother Carcinoma of colon Father Family history of coronary artery disease Father Family history of coronary artery disease Other Heart disease Hypertension Social History Social History Smoking status: Never smoker Second hand tobacco smoke exposure: Yes (father) Alcohol intake: never Substance use: former Substance use type: painkillers Last use: years ago; Gender identity (if verbalized by the patient): Female Meds Home Medications and Allergies Home Medications Medication Instructions Recorded Confirmed Type Xarelto 25 mg PO HS 07/22/19 01/14/20 History amitriptyline 50 mg PO HS 07/22/19 01/14/20 History aspirin [Aspir-81] 81 mg PO DAILY 07/22/19 01/14/20 History carvedilol 6.25 mg PO BID 07/22/19 01/14/20 History levothyroxine [Synthroid] 137 mcg PO DAILY 07/22/19 01/14/20 History blood sugar diagnostic #100 each 09/03/19 04
[2020-01-14 08:27] VITALS: BP 117/43; PULSE 60; RESP 22; O2SAT 94
[2020-01-14 08:37] VITALS: BP 109/44; PULSE 62; RESP 22; O2SAT 98
[2020-01-14 08:47] VITALS: BP 121/41; PULSE 64; RESP 16; O2SAT 97
== END 2020-01-14 09:06 | disposition home or self-care (01) ==
PROVIDERS: PCP Family Medicine; Visit Provider Internal Medicine Gastroenterology
PROC: 0DJ08ZZ Inspection of Upper Intestinal Tract, Via Natural or Artificial Opening Endoscopic (ICD-10-PCS; CPT 43235; principal; 2020-01-14 07:00)
DX: K62.5 Hemorrhage of anus and rectum (principal); D12.4 Benign neoplasm of descending colon; K64.8 Other hemorrhoids; R19.7 Diarrhea, unspecified; R10.84 Generalized abdominal pain; K21.9 Gastro-esophageal reflux disease without esophagitis; Z85.01 Personal history of malignant neoplasm of esophagus; I12.9 Hypertensive chronic kidney disease with stage 1 through stage 4 chronic kidney disease, or unspecified chronic kidney disease; N18.3 Chronic kidney disease, stage 3 (moderate); E11.22 Type 2 diabetes mellitus with diabetic chronic kidney disease; E78.5 Hyperlipidemia, unspecified; E03.9 Hypothyroidism, unspecified; E11.40 Type 2 diabetes mellitus with diabetic neuropathy, unspecified; Z79.01 Long term (current) use of anticoagulants; Z79.82 Long term (current) use of aspirin; Z95.1 Presence of aortocoronary bypass graft; Z95.4 Presence of other heart-valve replacement
CPT/HCPCS: 45385; 43235; 88305; J2370; J2704; J3370; J7120

== ENCOUNTER 2020-01-31 14:03 | Emergency (ER) | payer MEDICARE, SELFPAY ==
--- NOTE | 2020-01-31 14:08 | ED.BACK ---
HPI - Back Pain/Injury General Chief Complaint: Back Pain/Injury Stated Complaint: back pain ciatic nerve Time Seen by Provider: 01/31/20 14:08 Source: patient and RN notes reviewed Mode of arrival: ambulatory Limitations: no limitations History of Present Illness HPI Narrative: Patient states that she has been to a pain clinic in the past. She gets sciatic pain and it has been much worse the last couple of days. I reviewed her allergies which are to multiple medications. She says that she is currently taking ibuprofen at home. She does not recall any injury. She did not feel any acute change in her back pain she denies feeling any pop. MD elicited complaint: back pain Pertinent past history: prior back pain Onset (ago): day(s) (2) Timing: constant Severity: moderate Similar Symptoms Previously: Yes Quality: dull, aching and spasming Location: left lower back Radiation: left leg below the knee Exacerbating factors: movement and walking Relieving factors: none Associated symptoms: weakness and fatigue Treatments prior to arrival: NSAIDS Work related injury: No Related Data Home Medications Medication Instructions Recorded Confirmed Xarelto 25 mg PO HS 07/22/19 01/31/20 amitriptyline 50 mg PO HS 07/22/19 01/31/20 aspirin [Aspir-81] 81 mg PO DAILY 07/22/19 01/31/20 carvedilol 6.25 mg PO BID 07/22/19 01/31/20 potassium chloride [Klor-Con 10] 10 meq PO DAILY 11/10/19 01/31/20 spironolactone 25 mg PO DAILY 11/10/19 01/31/20 furosemide 40 mg PO BID 01/09/20 01/31/20 Allergies Allergy/AdvReac Type Severity Reaction Status Date / Time adhesive tape Allergy Severe BLISTERS Verified 01/27/20 14:57 amiodarone Allergy Severe N/V, Verified 01/27/20 14:57 HEADACHE, HOSPITALIZED atorvastatin Allergy Severe SWELLING Verified 01/27/20 14:57 butorphanol Allergy Severe RESTLESSNES Verified 01/27/20 14:57 S cerivastatin Allergy Severe ABDOMINAL Verified 01/27/20 14:57 PAIN, H/A clindamycin Allergy Severe TACHYCARDIA Verified 01/27/20 14:57 dexamethasone Allergy Severe IRRITATED Verified 01/27/20 14:57 EYES duloxetine Allergy Severe H/A Verified 01/27/20 14:57 enalaprilat Allergy Severe COUGH Verified 01/27/20 14:57 gabapentin Allergy Severe CHF Verified 01/27/20 14:57 gemfibrozil Allergy Severe ELEVATED Verified 01/27/20 14:57 CHOLESTEROL guaifenesin Allergy Severe NERVOUSNESS Verified 01/27/20 14:57 hydrocodone Allergy Severe N/V Verified 01/27/20 14:57 isosorbide Allergy Severe H/A Verified 01/27/20 14:57 ketorolac Allergy Severe CHEST PAIN Verified 01/27/20 14:57 levofloxacin Allergy Severe VOMITING Verified 01/27/20 14:57 meperidine Allergy Severe H/A Verified 01/27/20 14:57 nifedipine Allergy Severe SWELLING Verified 01/27/20 14:57 nitroglycerin Allergy Severe VOMITING Verified 01/27/20 14:57 norfloxacin Allergy Severe SWELLING Verified 01/27/20 14:57 oxycodone Allergy Severe VOMITING Verified 01/27/20 14:57 phenylephrine Allergy Severe NERVOUSNESS Verified 01/27/20 14:57 phenylpropanolamine Allergy Severe NERVOUSNESS Verified 01/27/20 14:57 prednisone Allergy Severe H/A Verified 01/27/20 14:57 rofecoxib Allergy Severe UPSET Verified 01/27/20 14:57 STOMACH, CAN TAKE WITH MEALS tobramycin Allergy Severe IRRITATED Verified 01/27/20 14:57 EYES acetaminophen [Vicodin] Allergy Intermediate Unknown Verified 01/27/20 14:57 adhesive Allergy Intermediate Unknown Verified 01/27/20 14:57 cephalexin Allergy Intermediate Unknown Verified 01/27/20 14:57 chlorpheniramine [Ornade] Allergy Intermediate Unknown Verified 01/27/20 14:57 codeine Allergy Intermediate Unknown Verified 01/27/20 14:57 doxycycline Allergy Intermediate Unknown Verified 01/27/20 14:57 erythromycin base Allergy Intermediate Unknown Verified 01/27/20 14:57 flurbiprofen [Ansaid] Allergy Intermediate Unknown Verified 01/27/20 14:57 tetracycline Allergy Intermediate Unconscious Verified 01/27/20 14:57 tramadol [Ultram] Allergy Intermediate U
[2020-01-31 14:19] VITALS: BP 111/57; PULSE 71; RESP 16; TEMP 36.8; O2SAT 99
[2020-01-31] MEDS: KETOROLAC (*BKC) 60 MG/2 ML VIAL IM (14:41)
[2020-01-31] MEDS: ORPHENADRINE CITRATE 30 MG/ML 2 ML VIAL 60 MG IM (14:41)
[2020-01-31 14:51] VITALS: RESP 17
== END 2020-01-31 14:53 | disposition home or self-care (01) ==
PROVIDERS: Emergency Provider Emergency Medicine; PCP Family Medicine
DX: M54.42 Lumbago with sciatica, left side (principal)
CPT/HCPCS: 96372; 99283; 99284; J1885; J2360

== ENCOUNTER 2020-03-25 12:25 | Emergency (ER) | payer MEDICARE, SELFPAY ==
--- NOTE | ~2020-03-25 | CT_ITS ---
EXAMINATION: CT abdomen pelvis w con DATE: 03/25/2020 16:10 INDICATION: Nausea and vomiting. TECHNIQUE: Computed tomography (CT) of the abdomen and pelvis was performed with 100 cc Omnipaque 350 intravenous contrast. The dose-length product was 387.99 mGy-cm. Automated exposure control and iter ative reconstruction technique were employed. COMPARISON: CT dated 12/04/2019 FINDINGS: Lung bases are normal. Heart size is normal. No significant pleural or pericardial effusion . Mild atherosclerosis. No acute osseous abnormality. Status post cholecystectomy with expected promi nence of the bile ducts. The liver, spleen, pancreas, adrenal glands and right kidney are unremarkable. There are small left r enal cyst. No lymphadenopathy. Nonobstructive bowel gas pattern. No free air or free fluid. Moderate lumbar spondylosis. 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 Healed right inferior pubic ramus fracture. IMPRESSION: 1. No acute abdominal abnormality. Reviewed, dictated and finalized at location B.
--- NOTE | ~2020-03-25 | XR_ITS ---
XR chest 2V 03/25/2020 16:10 Indication: Generalized weakness Procedure: 2 view chest Comparison: Comparison to multiple prior studies sequentially, with oldest reviewed study dated 04/03. Findings: Status post median sternotomy for CABG. Heart size normal. Pacemaker leads are stable. No f ocal air space disease, pulmonary edema, pleural effusion or suspected pneumothorax. Impression: 1: No acute cardiopulmonary disease. Reviewed, dictated and finalized at location B. Impression: 1: No acute cardiopulmonary disease.
[2020-03-25 13:40] VITALS: BP 131/72; PULSE 71; RESP 15; TEMP 36.7; O2SAT 97
--- NOTE | 2020-03-25 13:53 | ECG_ITS ---
Measurements Intervals [place] Rate: 66 P: [place]: 0 QRS: -73 QRSD: 223 T: 110 QT: 476 QTc: 501 Interpretive Statements ATRIAL SENSE- ELECTRONIC VENTRICULAR PACEMAKER NO FURTHER INTERPRETATION IS POSSIBLE ATYPICAL ECG Electronically Signed On 03-25-2020 14:33:32 CDT by Jim Herr D.O.
--- NOTE | 2020-03-25 14:55 | ED.ABDPAIN ---
HPI - Abdominal Pain General Chief Complaint: Abdominal Pain Stated Complaint: stomach hurting and bladder infection Source: patient and family () Mode of arrival: ambulatory Limitations: no limitations History of Present Illness HPI narrative: 84 y.o. with diffuse abdominal pain, onset 2 weeks ago which persists. The pain is moderate, constant, non-radiating. Nothing makes it better or worse. She denies nausea/vomiting. Her appetite has recently decreased. She had diarrhea for several days 2 weeks ago; none since. Three days ago she had 2 loose stools. She was evaluated yesterday, dx. with a UTI, started on nitrofurantoin. She has had 2 doses with new onset of epigastric discomfort not there before. She denies dysuria or unusual urinary frequency. For over a month she has had decreased appetite and fatigue. She states over the last few months she has lost about 25 pounds. Her pants fall off of her. She had bleeding per rectum 3 - 4 months ago. States upper and lower endoscopy were done. Colon polyps reomved, no bleeding since then. She has PMH of: A-fib Abdominal pain - states this current pain is unlike any pain she has previously had but unable to qualify further. Chronic anticoagulation CKD (chronic kidney disease) stage 3, GFR 30-59 ml/min Diabetes type 2, controlled Dysphagia Mitral valve replacement. History of esophageal dilatation History of TIA (transient ischemic attack) and stroke Hyperlipidemia associated with type 2 diabetes mellitus Hypertension associated with stage 3 chronic kidney disease due to type 2 diabetes mellitus Hypothyroidism Schatzki's ring of distal esophagus Trigger finger, right middle finger Related Data Home Medications Medication Instructions Recorded Confirmed aspirin [Aspir-81] 81 mg PO DAILY 07/22/19 03/25/20 carvedilol 6.25 mg PO BID 07/22/19 03/25/20 potassium chloride [Klor-Con 10] 10 meq PO DAILY 11/10/19 03/25/20 spironolactone 25 mg PO DAILY 11/10/19 03/25/20 furosemide 40 mg PO BID 01/09/20 03/25/20 Allergies Allergy/AdvReac Type Severity Reaction Status Date / Time adhesive tape Allergy Severe BLISTERS Verified 03/24/20 13:38 amiodarone Allergy Severe N/V, Verified 03/24/20 13:38 HEADACHE, HOSPITALIZED atorvastatin Allergy Severe SWELLING Verified 03/24/20 13:38 butorphanol Allergy Severe RESTLESSNES Verified 03/24/20 13:38 S cerivastatin Allergy Severe ABDOMINAL Verified 03/24/20 13:38 PAIN, H/A clindamycin Allergy Severe TACHYCARDIA Verified 03/24/20 13:38 dexamethasone Allergy Severe IRRITATED Verified 03/24/20 13:38 EYES duloxetine Allergy Severe H/A Verified 03/24/20 13:38 enalaprilat Allergy Severe COUGH Verified 03/24/20 13:38 gabapentin Allergy Severe CHF Verified 03/24/20 13:38 gemfibrozil Allergy Severe ELEVATED Verified 03/24/20 13:38 CHOLESTEROL guaifenesin Allergy Severe NERVOUSNESS Verified 03/24/20 13:38 hydrocodone Allergy Severe N/V Verified 03/24/20 13:38 isosorbide Allergy Severe H/A Verified 03/24/20 13:38 ketorolac Allergy Severe CHEST PAIN Verified 03/24/20 13:38 levofloxacin Allergy Severe VOMITING Verified 03/24/20 13:38 meperidine Allergy Severe H/A Verified 03/24/20 13:38 nifedipine Allergy Severe SWELLING Verified 03/24/20 13:38 nitroglycerin Allergy Severe VOMITING Verified 03/24/20 13:38 norfloxacin Allergy Severe SWELLING Verified 03/24/20 13:38 oxycodone Allergy Severe VOMITING Verified 03/24/20 13:38 phenylephrine Allergy Severe NERVOUSNESS Verified 03/24/20 13:38 phenylpropanolamine Allergy Severe NERVOUSNESS Verified 03/24/20 13:38 prednisone Allergy Severe H/A Verified 03/24/20 13:38 rofecoxib Allergy Severe UPSET Verified 03/24/20 13:38 STOMACH, CAN TAKE WITH MEALS tobramycin Allergy Severe IRRITATED Verified 03/24/20 13:38 EYES acetaminophen [Vicodin] Allergy Intermediate Unknown Verified 03/24/20 13:38 adhesive Allergy Intermediate Unknown Verified 03/24/20 13:38 cephalex
[2020-03-25 14:58] LABS: Add Urine Microscopic? YES; Appearance Urine Clear (Clear); Bilirubin Urine Negative (Negative); Blood Urine Negative (Negative); Color Urine Yellow (Yellow); Glucose Urine UA Negative (Negative); Ketones Urine Negative (Negative); Leukocyte Esterase Ur Trace (Negative); Nitrate Urine Negative (Negative); Protein Urine Negative (Negative); Specific Grav Ur <= 1.005 (1.010-1.020); Urobilinogen Urine 0.2 mg/dL (0.2-1.0)
[2020-03-25 15:01] LABS: Bacteria Urine None seen /hpf; RBC Urine None seen /hpf (0-2); Renal Epithelial Cells Urine Rare /hpf; Squamous Epithelial Cell Urine Rare /hpf (Few); WBC Urine None seen /hpf (0-3)
[2020-03-25 15:07] LABS: Hematocrit 35.5 % (35.0-42.0); Mean Corpuscular HGB Conc 33.8 g/dL (32.0-36.0); Mean Corpuscular Hemoglobin 31.5 pg (27.0-31.0); Mean Corpuscular Volume 93.2 fL (78.0-102.0); Mean Platelet Volume 10.3 fl (9.2-11.8); Platelet Count Result 166 K/mm3 (150-420); Red Blood Count 3.81 M/mm3 (4.20-5.40); Red Cell Distribution Width 12.4 % (11.6-14.4); White Blood Count 11.9 K/mm3 (4.8-10.8)
[2020-03-25 15:23] LABS: Alanine Aminotransferase 29 U/L (14-59); Albumin Level 3.6 g/dL (3.4-5.0); Alkaline Phosphatase 106 U/L (46-116); Anion Gap 6.7 mmol/L (7-16); Aspartate Amino Transferase 31 U/L (15-37); Bilirubin,Total 0.4 mg/dL (0.00-1.00); Blood Urea Nitrogen 23 mg/dL (7-18); Calcium 9.1 mg/dL (8.5-10.1); Carbon Dioxide 31 mmol/L (21-32); Chloride 98 mmol/L (98-108); Estimated CRCL calculation 29 ml/min; Estimated Glomerular Filt Rate 44; Glucose 190 mg/dL (70-99); Lipase 26 U/L (73-393); Osmolality Calculated 282 mOsm/kg (285-295); Potassium 3.7 mmol/L (3.5-5.1); Sodium 132 mmol/L (136-145); Total Protein 7.1 g/dL (6.4-8.2)
[2020-03-25] MEDS: MAG HYDROX/ALUMINUM HYD/SIMETH 30 ML, PHENobarb/HYOSCY/ATROPINE/SCOP 32.4 MG, LIDOCAINE... PO (15:33)
[2020-03-25 15:38] LABS: Troponin I < 0.02 ng/mL (0.00-0.056)
--- NOTE | 2020-03-25 16:47 | PC.NURSE ---
RN contacted [facility] for potential transfer. [facility] STATES THERE ARE VERY LIMITED TO NO BED AVAILABLE. AWAITING CALL BACK FROM HOSPITALIST.
[2020-03-25] MEDS: MORPHINE SULFATE 2 MG/ML INJ IV PUSH (17:06)
[2020-03-25 17:45] VITALS: BP 123/58; PULSE 69; RESP 18; O2SAT 96
== END 2020-03-25 17:45 | disposition home or self-care (01) ==
PROVIDERS: Emergency Provider Family Medicine; Family Provider Family Medicine; PCP Nurse Practitioner Family
DX: R10.9 Unspecified abdominal pain (principal); Z79.01 Long term (current) use of anticoagulants; N18.3 Chronic kidney disease, stage 3 (moderate); E11.9 Type 2 diabetes mellitus without complications; E03.9 Hypothyroidism, unspecified
CPT/HCPCS: 36415; 71046; 74177; 80053; 81001; 83690; 84484; 85027; 93005; 96374; 99283; 99284; A9270; J2270; Q9965

== ENCOUNTER 2020-03-30 11:05 | Observation (INO) | payer MEDICARE, SELFPAY ==
[2020-03-30] VITALS (8 sets, daily range): BP systolic 109–157; BP diastolic 40–72; PULSE 70–87; RESP 12–20; TEMP 36.5–36.8; O2SAT 95–100; BMI 21.1
--- NOTE | ~2020-03-30 | CT_ITS ---
EXAMINATION: CT abdomen pelvis w con DATE: 03/30/2020 13:02 INDICATION: Generalized abdominal pain, nausea TECHNIQUE: Computed tomography (CT) of the abdomen and pelvis was performed with 100 cc Omnipaque 350 intravenous contrast. Automated exposure control and iterative reconstruction technique were employe d. Exam dose: 248.31 mGy-cm total exam DLP. COMPARISON: 03/25/2020 CT abdomen pelvis FINDINGS: Cardiomegaly. Right atrial and right ventricular leads are noted. No pericardial effusion. Status post sternotomy. No pulmonary infiltrate or consolidation. Status post cholecystectomy. No abnormal bile duct or pancreatic duct dilatation. No hepatic space-occupying mass lesion. There is pancreatic atrophy. No pancreatic mass lesion . Spleen measures approximately 10.6 cm height (14 cm is upper limits of normal). 8 mm left renal cortical cyst. 4.8 mm left renal cortical cyst. The bladder wall appears thin and the bladder outline is lobular suggesting loss of bladder town Status post hysterectomy. Minimal diverticulosis of the sigmoid colon; no CT evidence of diverticulitis. No bowel obstruction i s evident. There is a prominent amount of fecal material, particularly in the right colon. No bowel w all thickening, pneumatosis or intraperitoneal free air is evident. There is extensive calcification of the abdominal aorta and branches but no abdominal aortic aneurysm . No intraperitoneal or retroperitoneal or pelvic mass lesion or adenopathy or ascites is noted. Old right superior and inferior pubic ramus fracture deformities. There are prominent osteoarthritic changes are noted at the hip joints. Degenerative change at the sa croiliac joints. Multilevel degenerative disc disease of the lumbar spine and degenerative spurring o f the lower thoracic spine. IMPRESSION: Cardiomegaly Status post sternotomy Status post cholecystectomy Minimal sigmoid diverticulosis Old pelvic fractures Degenerative changes of lumbar spine, sacroiliac joints, hips Sacroiliac joints, Reviewed, dictated and finalized at Location [facility]. Reviewed, dictated and finalized at location B.
--- NOTE | ~2020-03-30 | XR_ITS ---
XR chest 2V DATE: 03/30/2020 13:01 INDICATION: Chest pain, abdominal pain, nausea TECHNIQUE: 2 views COMPARISON: 03/25/2020 PA and lateral chest FINDINGS: The transverse cardiothoracic ratio measures 13.3/25.5, consistent with mild cardiomegaly. Status post sternotomy/CABG. Left-sided pacemaker device with leads overlying right atrium and right ventricle. Thoracic aortic calcification. No hilar or mediastinal enlargement. No pulmonary infiltrate or consolidation, pleural effusion or pulmonary vascular congestion or pneumo thorax is detected. Diffuse osteopenia. Surgical clips overlie the right upper quadrant, consistent with cholecystectomy. Abdominal aortic ca lcification is noted, without apparent aneurysm. IMPRESSION: Status post sternotomy/CABG Dual-lead left-sided pacemaker device Mild cardiomegaly Thoracic and abdominal aortic calcification No active pulmonary disease Status post cholecystectomy Reviewed, dictated and finalized at location B.
[2020-03-30 11:26] LABS: Add Urine Microscopic? YES; Appearance Urine Clear (Clear); Bilirubin Urine Negative (Negative); Blood Urine Negative (Negative); Color Urine Yellow (Yellow); Glucose Urine UA 1+ (Negative); Ketones Urine Negative (Negative); Leukocyte Esterase Ur Trace LEU/UL (Negative); Nitrate Urine Negative (Negative); Protein Urine Negative (Negative); Urobilinogen Urine 0.2 mg/dL (0.2-1.0); pH Urine 6.5 (5.0-8.0)
[2020-03-30 11:33] LABS: Bacteria Urine Trace /hpf; RBC Urine None seen /hpf (0-2); Squamous Epithelial Cell Urine Rare /hpf (Few); WBC Urine None seen /hpf (0-3)
--- NOTE | 2020-03-30 11:37 | ECG_ITS ---
Measurements Intervals [place] Rate: 73 P: 56 ME: 217 QRS: -72 QRSD: 212 T: 130 QT: 462 QTc: 510 Interpretive Statements ATRIAL SENSE- ELECTRONIC VENTRICULAR PACEMAKER NO FURTHER INTERPRETATION IS POSSIBLE ATYPICAL ECG Electronically Signed On 03-30-2020 11:49:16 CDT by Jim Herr D.O.
[2020-03-30] MEDS: MORPHINE SULFATE 4 MG/ML INJ 2 MG IV PUSH (11:47)
[2020-03-30] MEDS: ONDANSETRON INJ 4 MG/2 ML VIAL IV PUSH (11:47)
[2020-03-30 11:58] LABS: Basophils Absolute Auto 0.02 K/mm3 (0.00-0.10); Basophils Percent Auto 0.2 % (0.0-1.0); Eosinophils Absolute Auto 0.29 K/mm3 (0.02-0.50); Eosinophils Percent Auto 3.1 % (1.0-6.0); Hematocrit 33.2 % (35.0-42.0); Immature Granulocyte Absolute 0.04 K/mm3 (0.00-0.00); Immature Granulocyte Percent A 0.4 % (0.0-0.0); Lymphocytes Absolute Auto 0.42 K/mm3 (1.10-4.50); Lymphocytes Percent Auto 4.5 % (18.0-42.0); Mean Corpuscular HGB Conc 33.1 g/dL (32.0-36.0); Mean Corpuscular Volume 93.5 fL (78.0-102.0); Mean Platelet Volume 10.2 fl (9.2-11.8); Monocytes Absolute Auto 0.43 K/mm3 (0.10-0.90); Monocytes Percent Auto 4.6 % (2.0-11.0); Neutrophils Absolute Auto 8.1 K/mm3 (1.7-7.2); Neutrophils Percent Auto 87.2 % (50.0-70.0); Platelet Count Result 168 K/mm3 (150-420); Red Blood Count 3.55 M/mm3 (4.20-5.40); Red Cell Distribution Width 12.3 % (11.6-14.4); White Blood Count 9.3 K/mm3 (4.8-10.8)
[2020-03-30 12:15] LABS: INR 1.2; Partial Thromboplastin Time 34.1 SEC (22.3-31.6); Prothrombin Time 12.7 Seconds (9.64-11.0)
[2020-03-30 12:32] LABS: BNP 95.9 pg/mL (0-100)
[2020-03-30 12:41] LABS: Alanine Aminotransferase 277 U/L (14-59); Albumin Level 3.4 g/dL (3.4-5.0); Alkaline Phosphatase 202 U/L (46-116); Anion Gap 13.5 mmol/L (7-16); Aspartate Amino Transferase 487 U/L (15-37); Bilirubin,Total 0.5 mg/dL (0.00-1.00); Blood Urea Nitrogen 24 mg/dL (7-18); Calcium 9.4 mg/dL (8.5-10.1); Carbon Dioxide 28 mmol/L (21-32); Chloride 97 mmol/L (98-108); Estimated Glomerular Filt Rate 37; Glucose 340 mg/dL (70-99); Lipase 63 U/L (73-393); Osmolality Calculated 295 mOsm/kg (285-295); Potassium 4.5 mmol/L (3.5-5.1); Sodium 134 mmol/L (136-145); Total Protein 7.1 g/dL (6.4-8.2); Troponin I < 0.02 ng/mL (0.00-0.056)
[2020-03-30 12:56] LABS: Lactic Acid Reflex 1.9 mmol/L (0.4-2.0)
--- NOTE | 2020-03-30 14:14 | ED.ABDPAIN ---
HPI - Abdominal Pain General Chief Complaint: Abdominal Pain Stated Complaint: Abd pain Source: patient and family Mode of arrival: ambulatory Limitations: no limitations History of Present Illness HPI narrative: this is an 84-year-old female with history of diabetes hypo thyroidism history of CAD with CABG has a left-sided pacemaker history of CHF and hyperlipidemia that presents with some diffuse abdominal pain with nausea, there is no flank pain currently no dysuria has nausea with no vomiting no diarrhea constipation no shortness of breath no fever chills. Patient was seen in the ER on March 24 and was treated with nitrofurantoin for urinary tract infection. Patient could not tolerate that medication and then after approximately 1 to 2 days was seen by her primary care physician and switched her nitrofurantoin to Bactrim. The patient currently has a mass spec and is seeing her and treating her for her CHF and for her coronary artery disease and is currently on Crestor for her hyperlipidemia. Patient has been reiterates that she has been having a decreased appetite and weakness over the past 2 to 3 days. MD elicited complaint: abdominal pain Pertinent past history: other ( CAD with CABG) Onset (ago): year(s) Pain Consistency: intermittent Location: diffuse Severity: moderate Pain scale (0-10): 8 Quality: sharp Radiation: other ( diffuse) Migration to: periumbilical Exacerbating factors: nothing Relieving factors: nothing Context: confirms other ( recent antibiotics for UTI) Related Data Home Medications Medication Instructions Recorded Confirmed aspirin [Aspir-81] 81 mg PO DAILY 07/22/19 03/30/20 carvedilol 6.25 mg PO BID 07/22/19 03/30/20 potassium chloride [Klor-Con 10] 10 meq PO DAILY 11/10/19 03/30/20 spironolactone 25 mg PO DAILY 11/10/19 03/30/20 furosemide 40 mg PO BID 01/09/20 03/30/20 Allergies Allergy/AdvReac Type Severity Reaction Status Date / Time adhesive tape Allergy Severe BLISTERS Verified 03/24/20 13:38 amiodarone Allergy Severe N/V, Verified 03/24/20 13:38 HEADACHE, HOSPITALIZED atorvastatin Allergy Severe SWELLING Verified 03/24/20 13:38 butorphanol Allergy Severe RESTLESSNES Verified 03/24/20 13:38 S cerivastatin Allergy Severe ABDOMINAL Verified 03/24/20 13:38 PAIN, H/A clindamycin Allergy Severe TACHYCARDIA Verified 03/24/20 13:38 dexamethasone Allergy Severe IRRITATED Verified 03/24/20 13:38 EYES duloxetine Allergy Severe H/A Verified 03/24/20 13:38 enalaprilat Allergy Severe COUGH Verified 03/24/20 13:38 gabapentin Allergy Severe CHF Verified 03/24/20 13:38 gemfibrozil Allergy Severe ELEVATED Verified 03/24/20 13:38 CHOLESTEROL guaifenesin Allergy Severe NERVOUSNESS Verified 03/24/20 13:38 hydrocodone Allergy Severe N/V Verified 03/24/20 13:38 isosorbide Allergy Severe H/A Verified 03/24/20 13:38 ketorolac Allergy Severe CHEST PAIN Verified 03/24/20 13:38 levofloxacin Allergy Severe VOMITING Verified 03/24/20 13:38 meperidine Allergy Severe H/A Verified 03/24/20 13:38 nifedipine Allergy Severe SWELLING Verified 03/24/20 13:38 nitroglycerin Allergy Severe VOMITING Verified 03/24/20 13:38 norfloxacin Allergy Severe SWELLING Verified 03/24/20 13:38 oxycodone Allergy Severe VOMITING Verified 03/24/20 13:38 phenylephrine Allergy Severe NERVOUSNESS Verified 03/24/20 13:38 phenylpropanolamine Allergy Severe NERVOUSNESS Verified 03/24/20 13:38 prednisone Allergy Severe H/A Verified 03/24/20 13:38 rofecoxib Allergy Severe UPSET Verified 03/24/20 13:38 STOMACH, CAN TAKE WITH MEALS tobramycin Allergy Severe IRRITATED Verified 03/24/20 13:38 EYES acetaminophen [Vicodin] Allergy Intermediate Unknown Verified 03/24/20 13:38 adhesive Allergy Intermediate Unknown Verified 03/24/20 13:38 cephalexin Allergy Intermediate Unknown Verified 03/24/20 13:38 chlorpheniramine [Ornade] Allergy Intermediate Unknown Verified 03/24/20 13:38 codeine Allergy Intermediate Unknown Ve
[2020-03-30 15:18] LABS: Thyroid Stimulating Hormone 0.17 uIU/mL (0.36-3.74)
[2020-03-30 15:20] LABS: Creatine Kinase 31 U/L (26-192)
[2020-03-30] MEDS: SUCRALFATE SUSP 100 MG/ML 10 ML UDC 1000 MG PO (15:36)
[2020-03-30] MEDS: SODIUM CHLORIDE 0.9% IV 1,000 ML 100 ML IV CONT (15:36)
[2020-03-30 16:33] LABS: Glucose Point of Care 306 (65-105)
[2020-03-30] MEDS: FUROSEMIDE 20 MG TABLET 40 MG PO (16:47)
[2020-03-30] MEDS: RIVAROXABAN 10 MG TABLET 20 MG PO (16:47)
[2020-03-30] MEDS: SACCHAROMYCES BOULARDII 250 MG CAPSULE PO (16:51)
--- NOTE | 2020-03-30 20:35 | PC.NURSE ---
IV in right AC infiiltrated. New IV started on right arm. Patient is on blood thinners and bruises easily
[2020-03-30] MEDS: carvediloL 6.25 MG TABLET PO (20:50)
[2020-03-30] MEDS: AMITRIPTYLINE HCL 25 MG TABLET 50 MG PO (20:51)
[2020-03-30] MEDS: lisinopriL 10 MG TABLET PO (21:08)
[2020-03-30 21:12] LABS: Glucose Point of Care 94 (65-105)
--- NOTE | 2020-03-30 21:14 | PC.NURSE ---
Blood glucose 94. Patient also stated she felt hungry. Light colored jello and apple juice given
--- NOTE | 2020-03-30 23:44 | PC.NURSE ---
Patient IV site infiltrated. Doctor notified. New order received to DC fluids. Order completed. IV removed intact
[2020-03-31] VITALS: PULSE 77
--- NOTE | 2020-03-31 00:38 | PC.NURSE ---
Sleeping, resp even. No NV or diarrhea noted so far this shift. Telemetry continues. Paced.
--- NOTE | 2020-03-31 01:33 | PC.NURSE ---
Sleeping, resp even. telemetry continues. No NV, or diarrhea noted.
--- NOTE | 2020-03-31 03:00 | PC.NURSE ---
Sleeping, resp even.
[2020-03-31 04:00] VITALS: BP 157/66; PULSE 76; PULSE 83; RESP 20; TEMP 36.4; O2SAT 98
[2020-03-31] MEDS: LEVOTHYROXINE SODIUM 100 MCG, LEVOTHYROXINE SODIUM 25 MCG 125 MCG PO (06:11)
[2020-03-31] MEDS: SUCRALFATE SUSP 100 MG/ML 10 ML UDC 1000 MG PO (06:12)
[2020-03-31 06:55] LABS: Basophils Absolute Auto 0.03 K/mm3 (0.00-0.10); Basophils Percent Auto 0.4 % (0.0-1.0); Eosinophils Absolute Auto 0.47 K/mm3 (0.02-0.50); Eosinophils Percent Auto 6.7 % (1.0-6.0); Hematocrit 34.1 % (35.0-42.0); Hemoglobin 11.3 g/dL (11.7-13.8); Immature Granulocyte Absolute 0.03 K/mm3 (0.00-0.00); Immature Granulocyte Percent A 0.4 % (0.0-0.0); Lymphocytes Absolute Auto 1.45 K/mm3 (1.10-4.50); Lymphocytes Percent Auto 20.7 % (18.0-42.0); Mean Corpuscular HGB Conc 33.1 g/dL (32.0-36.0); Mean Corpuscular Hemoglobin 30.8 pg (27.0-31.0); Mean Corpuscular Volume 92.9 fL (78.0-102.0); Mean Platelet Volume 10.3 fl (9.2-11.8); Monocytes Percent Auto 7.1 % (2.0-11.0); Neutrophils Absolute Auto 4.5 K/mm3 (1.7-7.2); Neutrophils Percent Auto 64.7 % (50.0-70.0); Platelet Count Result 172 K/mm3 (150-420); Red Blood Count 3.67 M/mm3 (4.20-5.40); Red Cell Distribution Width 12.5 % (11.6-14.4)
[2020-03-31 07:13] LABS: BNP 101 pg/mL (0-100)
[2020-03-31 07:23] LABS: Alanine Aminotransferase 277 U/L (14-59); Albumin Level 3.2 g/dL (3.4-5.0); Alkaline Phosphatase 200 U/L (46-116); Anion Gap 10.6 mmol/L (7-16); Aspartate Amino Transferase 208 U/L (15-37); Bilirubin,Total 0.4 mg/dL (0.00-1.00); Blood Urea Nitrogen 18 mg/dL (7-18); Calcium 9.4 mg/dL (8.5-10.1); Carbon Dioxide 30 mmol/L (21-32); Chloride 98 mmol/L (98-108); Estimated CRCL calculation 27 ml/min; Estimated Glomerular Filt Rate 41; Free T4 Free Thyroxine 1.08 ng/dL (0.76-1.46); Glucose 132 mg/dL (70-99); Magnesium 1.7 mg/dL (1.8-2.4); Osmolality Calculated 281 mOsm/kg (285-295); Potassium 4.6 mmol/L (3.5-5.1); Sodium 134 mmol/L (136-145)
[2020-03-31 07:45] LABS: Glucose Point of Care 137 (65-105)
[2020-03-31 07:53] VITALS: BP 120/59; PULSE 72; RESP 16; TEMP 36.6; O2SAT 97
[2020-03-31 07:54] VITALS: PULSE 85
[2020-03-31] MEDS: SACCHAROMYCES BOULARDII 250 MG CAPSULE PO (08:49)
[2020-03-31 08:50] VITALS: PULSE 72
[2020-03-31] MEDS: FUROSEMIDE 20 MG TABLET 40 MG PO (08:50)
[2020-03-31] MEDS: SPIRONOLACTONE 25 MG TABLET PO (08:50)
[2020-03-31] MEDS: lisinopriL 10 MG TABLET PO (08:50)
[2020-03-31] MEDS: carvediloL 6.25 MG TABLET PO (08:50)
[2020-03-31] MEDS: POTASSIUM CHLORIDE 10 MEQ TABLET PO (08:50)
[2020-03-31] MEDS: PANTOPRAZOLE 40 MG TABLET PO (08:50)
[2020-03-31] MEDS: ASPIRIN 81 MG ENTERIC TABLET PO (08:51)
[2020-03-31 11:26] VITALS: BP 119/55; PULSE 70; RESP 16; TEMP 36.6; O2SAT 96
[2020-03-31 11:26] LABS: Glucose Point of Care 176 (65-105)
[2020-03-31] MEDS: MAGNESIUM OXIDE 400 MG TABLET PO (11:32)
--- NOTE | 2020-03-31 14:58 | PM.IMHP ---
H&P: HPI History of Present Illness Chief complaint: weakness Abd pain Narrative: Dinorah Thorpe is a 84 year old female admitted with abdominal pain. Dinorah stated that her abdominal pain started in the pelvic lower abdomen area and moved superiorly up through her abdomen towards her stomach and then resolved yesterday. She has denied having pain overnight and stated she has not had any pain since yesterday at her hospital admission. She has a history of diabetes, hypothyroidism, history of CAD with CABG has a left-sided pacemaker history of CHF and hyperlipidemia. Dinorah presented yesterday with some diffuse abdominal pain with nausea. She did not have flank pain or dysuria. She did have nausea, but with no vomiting, no diarrhea/ constipation, no shortness of breath, and no fever or chills. Patient was also seen in the ER on March 24 and was treated with nitrofurantoin for urinary tract infection. Patient seemingly could not tolerate that medication and was switched from her nitrofurantoin to Bactrim. 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 She has been having a decreased appetite and weakness over the past 2 to 3 days. This poor appetite may be attributed to her diabetes medication(s) including her SQ meds. Today and unable to elicit any abdominal pain, despite palpation. She is able to ambulate around her hospital room with her cane. I have asked PT to evaluate her for discharge. She has tolerated multiple clear liquid meals with no nausea or vomiting or abdominal pain returning. We have advanced her diet for lunch. She tolerated her regular lunch meal with no complaints. Her echo will be completed this afternoon and if no further concerns or changes she will be discharged to home. Review of Systems Review of Systems: All systems reviewed & are unremarkable except as noted in HPI and below Constitutional: Constitutional: Reports as per HPI, Denies excessive sweating, Reports fatigue, Denies headache(s), Denies increased appetite, Reports lethargy, Denies snoring, Reports weakness and Denies weight gain Eyes: Eyes: Reports as per HPI, Denies exophthalmos, Denies diplopia, Denies floaters and Denies loss of peripheral vision ENT: Reports as per HPI, Reports Normal hearing present, Denies facial pain, Denies headache(s), Denies odynophagia and Denies tinnitus Cardiovascular: Cardiovascular: Reports as per HPI, Denies chest pain and Denies lightheadedness Respiratory: Respiratory: Reports as per HPI and Denies snoring Gastrointestinal: Gastrointestinal: Reports as per HPI, Denies abdominal pain, Denies melena, Denies bloating, Denies hematochezia, Denies heartburn, Denies diarrhea, Denies nausea, Denies odynophagia, Denies vomiting and Denies hematemesis Genitourinary: Genitourinary: Reports as per HPI, Denies hematuria and Denies flank pain Musculoskeletal: Musculoskeletal: Reports as per HPI Integumentary/Breasts: Skin/Breast: Reports as per HPI Neurologic: Reports as per HPI and Denies headache(s) Psychiatric: Psychiatric: Reports as per HPI, Denies anxiety and Denies confusion Endocrine: Endocrine: Denies excessive sweating PMFSH Past Medical History Medical History A-fib Abdominal pain Chronic anticoagulation CKD (chronic kidney disease) stage 3, GFR 30-59 ml/min Closed head injury Contusion of right knee Contusion of right shoulder Cough Diabetes type 2, controlled Diarrhea Dysphagia Fall (~07/22/19) Heart disease History of esophageal dilatation History of TIA (transient ischemic attack) and stroke Hyperlipidemia associated with type 2 diabetes mellitus Hypertension associated with stage 3 chronic kidney disease due to type 2 diabetes mellitus Hypothyroidism Peripheral sensory neuropathy due to type 2 diabetes mellitus Rectal blee
--- NOTE | 2020-03-31 14:59 | PM.DS ---
DS: Admitting Diagnosis Admitting Diagnosis Admitting Diagnosis: Unspecified abdominal pain DS: Discharge Diagnosis Discharge Diagnosis (1) Abdominal pain: Code(s): R10.9 - Unspecified abdominal pain Status: Acute Assessment and Plan: Resolved tolerating all meals and oral hydration and oral medications well no abdominal pain with palpation UA was clear CT scan completed on the showed only: Minimal sigmoid diverticulosis CT scan completed on March 25 showed no new or acute concerns. discharge patient with expected follow-up to her primary care provider and [facility] (2) Abnormal LFTs: Code(s): R94.5 - Abnormal results of liver function studies Status: Acute Assessment and Plan: IMPROVING AST levels increased from 31 to 487 and then improved to 208 ALT levels increased from 29 to 277 Alk Phos levels increased from 106 to 202 and then improved to 200 Bilirubin level within normal limits creatinine levels normal ordered patient to have repeat labs completed in the next 2-3 days she is to follow-up with her primary care provider on , in 2 days instructed her to stay well hydrated and improve her dietary intake instructed patient to stop her antibiotics at home, especially her Bactrim as this may be contributing to her elevated liver enzymes echo ordered for this afternoon spoke with Chelsie laughlin, patients nurse practitioner primary care provider, she will continue to work on having the patient follow-up with GI specialist started patient on probiotics and cranberry extract (3) Urinary tract infection: Code(s): N39.0 - Urinary tract infection, site not specified Status: Acute Assessment and Plan: RESOLVED. her UA at admission was clear her last urinary culture from March 24 was without bacterial growth Of significant she likely had enough antibiotic therapy from her Macrobid dosing and Bactrim dosing stopping all antibiotic dosing at this time especially her Bactrim due to concerns for her liver and kidneys patient currently denies any urinary symptoms, denies bladder spasms, denies difficulty voiding, denies blood in her urine. creatinine levels normal ordered patient to have repeat labs and repeat Urine Culture completed in the next 2-3 days she is to follow-up with her primary care provider on , in 2 days instructed her to stay well hydrated and improve her dietary intake instructed patient to stop her antibiotics at home, especially her Bactrim as this may be contributing to her elevated liver enzymes Advised patient to follow-up with OBGYN after discharge started patient on probiotics and cranberry extract (4) Weakness: Code(s): R53.1 - Weakness Status: Acute Assessment and Plan: RESOLVED. patient lives with her , their children and grandchildren check on them daily ordered PT evaluation prior to discharge patient is ambulating up around her hospital room well with her cane ordered patient to have repeat labs completed in the next 2-3 days she is to follow-up with her primary care provider on , in 2 days instructed her to stay well hydrated and improve her dietary intake DS: Summary Time Spent with Patient Time attestation: Total time spent providing and/or coordinating discharge services: >60 minutes Exam Const: General: comfortable, no acute distress and alert; No confusion Orientation/consciousness: patient oriented x3 and No confusion Limitations: no limitations HENMT: Head: normal to inspection General nose exam: Normal nares present and no epistaxis Eyes: General: appearance normal, both eyes and all related structures Conjunctivae: conjunctivae normal Pupils: Equal, round and reactive pupils present EOM: EOMs intact bilaterally Neck: Neck: no meningeal signs Chest: Chest palpation & inspection: normal inspection of the chest Resp: Effort & Inspec
--- NOTE | 2020-03-31 15:00 | ECHO_ITS ---
Patient Info Name: Dinorah Thorpe Age: 84 years : 1935 Gender: Female Ht: 64 in Wt: 123 lbs BSA: 1.59 m2 HR: 61 bpm BP: 119 / 55 mmHg Technical Quality: Good Exam Date: 03/31/2020 2:10 PM Exam Location: [facility] Patient Status: Outpatient Admit Date: 03/30/2020 Staff Ordering Physician: Shabana Moran NP [employer] Specialist: Sebastien Marcial RDCS, RT Attending Provider: Juma Ayala MD Referring Physician: Dean ZAMORA; Exam Type: CA echo doppler color flow Study Info Indications R53.83 - Other fatigue Complete two-dimensional, color flow and Doppler transthoracic echocardiogram is performed. Summary 1. Left ventricular chamber dimension is normal. 2. Left ventricular systolic function is preserved, estimated at 50-55%. 3. There is mildly increased left ventricular wall thickness. 4. Left ventricular septal wall motion is abnormal with septal motion related to pacing. 5. E/e' 23 is significantly elevated. 6. Right ventricular systolic function is reduced at 1.5 cm. 7. Linear artifact in right ventricle suggestive of catheter(s), pacemaker lead(s), or ICD lead(s). 8. Left atrial chamber dimension is mildly enlarged. 9. Right atrial chamber dimension is mildly enlarged. 10. Linear artifact in the right atrium suggestive of catheter(s), pacemaker lead(s), or ICD lead(s). 11. The mitral valve has mildly thickened leaflets and moderately calcified annulus. 12. There is mild mitral valve regurgitation. 13. There is mild to moderate tricuspid valve regurgitation. 14. No pulmonary hypertension, estimated pulmonary arterial systolic pressure is 36 mmHg. 15. Small atheroma in anterior and posterior aortic root. 16. There is trivial pericardial effusion. Left Ventricle Left ventricular systolic function is preserved, estimated at 50-55%. E/e' 23 is significantly elevated. Left ventricular chamber dimension is normal. There is mildly increased left ventricular wall thickness. Left ventricular septal wall motion is abnormal with septal motion related to pacing. Right Ventricle Right ventricular systolic function is reduced at 1.5 cm. Linear artifact in right ventricle suggestive of catheter(s), pacemaker lead(s), or ICD lead(s). Right ventricular chamber dimension is normal. Left Atria Left atrial chamber dimension is mildly enlarged. Right Atria Linear artifact in the right atrium suggestive of catheter(s), pacemaker lead(s), or ICD lead(s). Right atrial chamber dimension is mildly enlarged. Aortic Valve The aortic valve is trileaflet. There is no aortic valve stenosis. There is no aortic valve regurgitation. Pulmonic Valve There is no pulmonic regurgitation. Mitral Valve The mitral valve has mildly thickened leaflets and moderately calcified annulus. There is no mitral valve stenosis. There is mild mitral valve regurgitation. Tricuspid Valve There is mild to moderate tricuspid valve regurgitation. No pulmonary hypertension, estimated pulmonary arterial systolic pressure is 36 mmHg. Pericardium/Pleural There is trivial pericardial effusion. Inferior Vena Cava Normal inferior vena cava with >50% collapse upon inspiration consistent with normal right atrial pressure, 5 mmHg. Aorta Small atheroma in anterior and posterior aortic root. The aortic root size at the sinus of Valsalva is normal. Left Ventricular Outflow Tract Name
== END 2020-03-31 16:00 | disposition home or self-care (01) ==
LOC: CHSED 14:26 → CHS2ND 14:31
PROVIDERS: Admitting Provider Emergency Medicine; Emergency Provider Emergency Medicine; PCP Family Medicine; Visit Provider Emergency Medicine
DX: R10.9 Unspecified abdominal pain (principal); R94.5 Abnormal results of liver function studies; I48.20 Chronic atrial fibrillation, unspecified; I13.0 Hypertensive heart and chronic kidney disease with heart failure and stage 1 through stage 4 chronic kidney disease, or unspecified chronic kidney disease; N18.3 Chronic kidney disease, stage 3 (moderate); I50.9 Heart failure, unspecified; I25.10 Atherosclerotic heart disease of native coronary artery without angina pectoris; E11.42 Type 2 diabetes mellitus with diabetic polyneuropathy; E11.22 Type 2 diabetes mellitus with diabetic chronic kidney disease; E03.9 Hypothyroidism, unspecified; E78.5 Hyperlipidemia, unspecified; K22.2 Esophageal obstruction; R53.1 Weakness; Z95.0 Presence of cardiac pacemaker; Z95.1 Presence of aortocoronary bypass graft; Z86.73 Personal history of transient ischemic attack (TIA), and cerebral infarction without residual deficits; Z79.01 Long term (current) use of anticoagulants
CPT/HCPCS: 36415; 71046; 74177; 80053; 81001; 82550; 83605; 83690; 83735; 83880; 84439; 84443; 84484; 85025; 85610; 85730; 93005; 93306; 96361; 96374; 96375; 97161; 99284; 99285; A9270; G0378; J1815; J2270; J2405; J7030; Q9965

== ENCOUNTER 2020-04-02 09:01 | Outpatient (CLI) | payer MEDICARE, SELFPAY ==
[2020-04-02 09:16] LABS: Basophils Absolute Auto 0.05 K/mm3 (0.00-0.10); Basophils Percent Auto 0.5 % (0.0-1.0); Eosinophils Absolute Auto 0.64 K/mm3 (0.02-0.50); Eosinophils Percent Auto 6.8 % (1.0-6.0); Hematocrit 32.7 % (35.0-42.0); Immature Granulocyte Absolute 0.02 K/mm3 (0.00-0.00); Immature Granulocyte Percent A 0.2 % (0.0-0.0); Lymphocytes Absolute Auto 1.95 K/mm3 (1.10-4.50); Lymphocytes Percent Auto 20.6 % (18.0-42.0); Mean Corpuscular HGB Conc 33.6 g/dL (32.0-36.0); Mean Corpuscular Hemoglobin 31.3 pg (27.0-31.0); Mean Corpuscular Volume 92.9 fL (78.0-102.0); Mean Platelet Volume 9.8 fl (9.2-11.8); Monocytes Absolute Auto 0.64 K/mm3 (0.10-0.90); Monocytes Percent Auto 6.8 % (2.0-11.0); Neutrophils Absolute Auto 6.2 K/mm3 (1.7-7.2); Neutrophils Percent Auto 65.1 % (50.0-70.0); Platelet Count Result 222 K/mm3 (150-420); Red Blood Count 3.52 M/mm3 (4.20-5.40); Red Cell Distribution Width 12.4 % (11.6-14.4); White Blood Count 9.5 K/mm3 (4.8-10.8)
[2020-04-02 09:50] LABS: Alanine Aminotransferase 143 U/L (14-59); Albumin Level 3.5 g/dL (3.4-5.0); Alkaline Phosphatase 172 U/L (46-116); Anion Gap 11.5 mmol/L (7-16); Aspartate Amino Transferase 46 U/L (15-37); Bilirubin,Total 0.4 mg/dL (0.00-1.00); Blood Urea Nitrogen 29 mg/dL (7-18); Calcium 9.2 mg/dL (8.5-10.1); Carbon Dioxide 30 mmol/L (21-32); Chloride 92 mmol/L (98-108); Estimated Glomerular Filt Rate 28; Glucose 161 mg/dL (70-99); Osmolality Calculated 274 mOsm/kg (285-295); Potassium 5.5 mmol/L (3.5-5.1); Sodium 128 mmol/L (136-145); Total Protein 6.9 g/dL (6.4-8.2)
== END 2020-04-02 09:02 | disposition home or self-care (01) ==
LOC: CHSLAB 09:06
PROVIDERS: PCP Family Medicine; Visit Provider Nurse Practitioner
DX: R53.1 Weakness (principal); R10.9 Unspecified abdominal pain; R94.5 Abnormal results of liver function studies; R19.7 Diarrhea, unspecified
CPT/HCPCS: 36415; 80053; 85025

== ENCOUNTER 2020-04-07 14:02 | Outpatient (CLI) | payer MEDICARE, SELFPAY ==
[2020-04-07 14:24] LABS: Basophils Absolute Auto 0.04 K/mm3 (0.00-0.10); Basophils Percent Auto 0.5 % (0.0-1.0); Eosinophils Percent Auto 8.8 % (1.0-6.0); Hematocrit 34.9 % (35.0-42.0); Hemoglobin 11.5 g/dL (11.7-13.8); Immature Granulocyte Absolute 0.03 K/mm3 (0.00-0.00); Immature Granulocyte Percent A 0.4 % (0.0-0.0); Lymphocytes Absolute Auto 1.61 K/mm3 (1.10-4.50); Lymphocytes Percent Auto 20.2 % (18.0-42.0); Mean Corpuscular Hemoglobin 31.5 pg (27.0-31.0); Mean Corpuscular Volume 95.6 fL (78.0-102.0); Mean Platelet Volume 10.3 fl (9.2-11.8); Monocytes Absolute Auto 0.43 K/mm3 (0.10-0.90); Monocytes Percent Auto 5.4 % (2.0-11.0); Neutrophils Absolute Auto 5.2 K/mm3 (1.7-7.2); Neutrophils Percent Auto 64.7 % (50.0-70.0); Platelet Count Result 253 K/mm3 (150-420); Red Blood Count 3.65 M/mm3 (4.20-5.40); Red Cell Distribution Width 12.5 % (11.6-14.4)
[2020-04-07 15:12] LABS: Alanine Aminotransferase 59 U/L (14-59); Albumin Level 3.7 g/dL (3.4-5.0); Alkaline Phosphatase 137 U/L (46-116); Anion Gap 14.5 mmol/L (7-16); Aspartate Amino Transferase 28 U/L (15-37); Bilirubin Direct 0.1 mg/dL (0-0.2); Bilirubin,Total 0.3 mg/dL (0.00-1.00); Blood Urea Nitrogen 28 mg/dL (7-18); Calcium 9.2 mg/dL (8.5-10.1); Carbon Dioxide 27 mmol/L (21-32); Chloride 96 mmol/L (98-108); Estimated Glomerular Filt Rate 41; Glucose 223 mg/dL (70-99); Osmolality Calculated 288 mOsm/kg (285-295); Potassium 4.5 mmol/L (3.5-5.1); Sodium 133 mmol/L (136-145); Total Protein 7.1 g/dL (6.4-8.2)
[2020-04-07 19:00] LABS: Add Urine Microscopic? YES; Appearance Urine Clear (Clear); Bilirubin Urine Negative (Negative); Blood Urine Negative (Negative); Color Urine Yellow (Yellow); Glucose Urine UA Negative (Negative); Ketones Urine Negative (Negative); Leukocyte Esterase Ur 3+ LEU/UL (Negative); Nitrate Urine Negative (Negative); Protein Urine Negative (Negative); Urobilinogen Urine 0.2 mg/dL (0.2-1.0)
[2020-04-07 19:07] LABS: Bacteria Urine 1+ /hpf; RBC Urine 0-2 /hpf (0-2); Squamous Epithelial Cell Urine Few /hpf (Few)
== END 2020-04-07 14:03 | disposition home or self-care (01) ==
LOC: CHSLAB 14:04
PROVIDERS: PCP Family Medicine; Visit Provider Family Medicine
DX: R10.9 Unspecified abdominal pain (principal); R94.5 Abnormal results of liver function studies
CPT/HCPCS: 36415; 80053; 81001; 82248; 85025; 87077; 87086; 87088

== ENCOUNTER 2020-04-08 14:16 | Emergency (ER) | payer MEDICARE, SELFPAY ==
[2020-04-08 14:25] VITALS: BP 103/50; PULSE 73; RESP 16; TEMP 36.9; O2SAT 96
--- NOTE | 2020-04-08 14:41 | ED.GENADULT ---
HPI - General Adult General Chief complaint: Dizziness Stated complaint: low sodium Time Seen by Provider: 04/08/20 14:41 History of Present Illness HPI narrative: 84-year-old female patient is here with chief complaints of dizziness. The patient states that she has been experiencing dizziness for the last day or 2 and she called her primary care physician today and states that he advised her to come here to get her sodium checked. The patient denies any unsteadiness of her gait or passing out. She states that she gets dizzy when she stands up and or is looking up. She denies any associated nausea or vomiting. She denies any headache. She denies any chest pain palpitations. She denies any recent illnesses. Patient states that she is not aware of any sodium issues in the past. She has does states that the new prescription has been called in today by her primary care physician and that she was on her way to pick it up and was decided to come to the ER at the behest of her primary care physician. Related Data Home Medications Medication Instructions Recorded Confirmed aspirin [Aspir-81] 81 mg PO DAILY 07/22/19 04/08/20 carvedilol 6.25 mg PO BID 07/22/19 04/08/20 potassium chloride [Klor-Con 10] 10 meq PO DAILY 11/10/19 04/08/20 spironolactone 25 mg PO DAILY 11/10/19 04/08/20 furosemide 40 mg PO BID 01/09/20 04/08/20 Allergies Allergy/AdvReac Type Severity Reaction Status Date / Time adhesive tape Allergy Severe BLISTERS Verified 04/08/20 14:42 amiodarone Allergy Severe N/V, Verified 04/08/20 14:42 HEADACHE, HOSPITALIZED atorvastatin Allergy Severe SWELLING Verified 04/08/20 14:42 butorphanol Allergy Severe RESTLESSNES Verified 04/08/20 14:42 S cerivastatin Allergy Severe ABDOMINAL Verified 04/08/20 14:42 PAIN, H/A clindamycin Allergy Severe TACHYCARDIA Verified 04/08/20 14:42 dexamethasone Allergy Severe IRRITATED Verified 04/08/20 14:42 EYES duloxetine Allergy Severe H/A Verified 04/08/20 14:42 enalaprilat Allergy Severe COUGH Verified 04/08/20 14:42 gabapentin Allergy Severe CHF Verified 04/08/20 14:42 gemfibrozil Allergy Severe ELEVATED Verified 04/08/20 14:42 CHOLESTEROL guaifenesin Allergy Severe NERVOUSNESS Verified 04/08/20 14:42 hydrocodone Allergy Severe N/V Verified 04/08/20 14:42 isosorbide Allergy Severe H/A Verified 04/08/20 14:42 ketorolac Allergy Severe CHEST PAIN Verified 04/08/20 14:42 levofloxacin Allergy Severe VOMITING Verified 04/08/20 14:42 meperidine Allergy Severe H/A Verified 04/08/20 14:42 nifedipine Allergy Severe SWELLING Verified 04/08/20 14:42 nitroglycerin Allergy Severe VOMITING Verified 04/08/20 14:42 norfloxacin Allergy Severe SWELLING Verified 04/08/20 14:42 oxycodone Allergy Severe VOMITING Verified 04/08/20 14:42 phenylephrine Allergy Severe NERVOUSNESS Verified 04/08/20 14:42 phenylpropanolamine Allergy Severe NERVOUSNESS Verified 04/02/20 11:03 prednisone Allergy Severe H/A Verified 04/02/20 11:03 rofecoxib Allergy Severe UPSET Verified 04/02/20 11:03 STOMACH, CAN TAKE WITH MEALS tobramycin Allergy Severe IRRITATED Verified 04/02/20 11:03 EYES acetaminophen [Vicodin] Allergy Intermediate Unknown Verified 04/02/20 11:03 adhesive Allergy Intermediate Unknown Verified 04/02/20 11:03 cephalexin Allergy Intermediate Unknown Verified 04/02/20 11:03 chlorpheniramine [Ornade] Allergy Intermediate Unknown Verified 04/02/20 11:03 codeine Allergy Intermediate Unknown Verified 04/02/20 11:03 doxycycline Allergy Intermediate Unknown Verified 04/02/20 11:03 erythromycin base Allergy Intermediate Unknown Verified 04/02/20 11:03 flurbiprofen [Ansaid] Allergy Intermediate Unknown Verified 04/02/20 11:03 tetracycline Allergy Intermediate Unconscious Verified 04/02/20 11:03 tramadol [Ultram] Allergy Intermediate Unknown Verified 04/02/20 11:03 ciprofloxacin Allergy Unknown Unknown Verified 04/02/20 11:03 diclofenac Allergy Unknown Unknown Verified 04/02/20 11:03 hydr
[2020-04-08 15:00] VITALS: BP 91/48
[2020-04-08 15:04] LABS: Basophils Absolute Auto 0.03 K/mm3 (0.00-0.10); Basophils Percent Auto 0.4 % (0.0-1.0); Eosinophils Absolute Auto 0.52 K/mm3 (0.02-0.50); Eosinophils Percent Auto 7.3 % (1.0-6.0); Hematocrit 33.6 % (35.0-42.0); Hemoglobin 11.2 g/dL (11.7-13.8); Immature Granulocyte Absolute 0.02 K/mm3 (0.00-0.00); Immature Granulocyte Percent A 0.3 % (0.0-0.0); Lymphocytes Absolute Auto 1.55 K/mm3 (1.10-4.50); Lymphocytes Percent Auto 21.6 % (18.0-42.0); Mean Corpuscular HGB Conc 33.3 g/dL (32.0-36.0); Mean Corpuscular Hemoglobin 31.2 pg (27.0-31.0); Mean Corpuscular Volume 93.6 fL (78.0-102.0); Mean Platelet Volume 9.9 fl (9.2-11.8); Monocytes Absolute Auto 0.43 K/mm3 (0.10-0.90); Neutrophils Absolute Auto 4.6 K/mm3 (1.7-7.2); Neutrophils Percent Auto 64.4 % (50.0-70.0); Platelet Count Result 247 K/mm3 (150-420); Red Blood Count 3.59 M/mm3 (4.20-5.40); Red Cell Distribution Width 12.6 % (11.6-14.4); White Blood Count 7.2 K/mm3 (4.8-10.8)
[2020-04-08 15:05] VITALS: BP 91/39
[2020-04-08 15:10] VITALS: BP 70/50
[2020-04-08 15:20] LABS: Anion Gap 10.5 mmol/L (7-16); Blood Urea Nitrogen 31 mg/dL (7-18); Carbon Dioxide 30 mmol/L (21-32); Chloride 98 mmol/L (98-108); Estimated Glomerular Filt Rate 33; Glucose 197 mg/dL (70-99); Osmolality Calculated 289 mOsm/kg (285-295); Potassium 4.5 mmol/L (3.5-5.1); Sodium 134 mmol/L (136-145)
[2020-04-08 15:21] LABS: Calcium 9.2 mg/dL (8.5-10.1)
[2020-04-08] MEDS: SODIUM CHLORIDE 0.9% IV 1,000 ML 999 ML IV CONT (16:57)
[2020-04-08 17:36] VITALS: BP 110/52; PULSE 74; RESP 18; O2SAT 100
== END 2020-04-08 17:36 | disposition home or self-care (01) ==
PROVIDERS: Emergency Provider Emergency Medicine; PCP Family Medicine
DX: E86.0 Dehydration (principal)
CPT/HCPCS: 36415; 80048; 85025; 99282; 99283; J7030

== ENCOUNTER 2020-04-16 17:07 | Emergency (ER) | payer MEDICARE, SELFPAY ==
[2020-04-16 17:49] VITALS: BP 153/63; PULSE 75; RESP 20; TEMP 36.7; O2SAT 99
--- NOTE | 2020-04-16 18:12 | ED.GENADULT ---
HPI - General Adult General Chief complaint: Unspecified Stated complaint: severe rectum pain Time Seen by Provider: 04/16/20 18:13 History of Present Illness HPI narrative: 84-year-old female patient is here with severe rectal anal pain and constipation for and she states that she feels the pressure to go to the bathroom and have a bowel movement but is unable to do so because of pain. She is denying any abdominal pain. She denies any nausea or vomiting. The patient has been eating a regular diet. She does have a multitude of drug allergies and currently is not taking any pain medications that would contribute to her constipation. Patient does state that she has had hemorrhoids in the past and has had some bleeding with that but currently she has no complaints of blood in her underwear off the stools. She denies any urinary symptoms at this time. Related Data Home Medications Medication Instructions Recorded Confirmed aspirin [Aspir-81] 81 mg PO DAILY 07/22/19 04/08/20 carvedilol 6.25 mg PO BID 07/22/19 04/08/20 potassium chloride [Klor-Con 10] 10 meq PO DAILY 11/10/19 04/08/20 spironolactone 25 mg PO DAILY 11/10/19 04/08/20 furosemide 40 mg PO BID 01/09/20 04/08/20 Xarelto 25 mg PO HS 04/16/20 insulin NPH and regular human 30 unit SUBCUT BID 04/16/20 04/16/20 [Humulin 70/30 U-100 Insulin] levothyroxine 137 mcg PO DAILY 04/16/20 metformin 500 mg PO DAILY 04/16/20 04/16/20 rosuvastatin [Crestor] 20 mg PO HS 04/16/20 Allergies Allergy/AdvReac Type Severity Reaction Status Date / Time adhesive tape Allergy Severe BLISTERS Verified 04/16/20 17:59 amiodarone Allergy Severe N/V, Verified 04/16/20 17:59 HEADACHE, HOSPITALIZED atorvastatin Allergy Severe SWELLING Verified 04/16/20 17:59 butorphanol Allergy Severe RESTLESSNES Verified 04/16/20 17:59 S cerivastatin Allergy Severe ABDOMINAL Verified 04/16/20 17:59 PAIN, H/A clindamycin Allergy Severe TACHYCARDIA Verified 04/16/20 17:59 dexamethasone Allergy Severe IRRITATED Verified 04/16/20 17:59 EYES duloxetine Allergy Severe H/A Verified 04/16/20 17:59 enalaprilat Allergy Severe COUGH Verified 04/16/20 17:59 gabapentin Allergy Severe CHF Verified 04/16/20 17:59 gemfibrozil Allergy Severe ELEVATED Verified 04/16/20 17:59 CHOLESTEROL guaifenesin Allergy Severe NERVOUSNESS Verified 04/16/20 17:59 hydrocodone Allergy Severe N/V Verified 04/16/20 17:59 isosorbide Allergy Severe H/A Verified 04/16/20 17:59 ketorolac Allergy Severe CHEST PAIN Verified 04/16/20 17:59 levofloxacin Allergy Severe VOMITING Verified 04/16/20 17:59 meperidine Allergy Severe H/A Verified 04/16/20 17:59 nifedipine Allergy Severe SWELLING Verified 04/16/20 17:59 nitroglycerin Allergy Severe VOMITING Verified 04/16/20 17:59 norfloxacin Allergy Severe SWELLING Verified 04/16/20 17:59 oxycodone Allergy Severe VOMITING Verified 04/16/20 17:59 phenylephrine Allergy Severe NERVOUSNESS Verified 04/16/20 17:59 phenylpropanolamine Allergy Severe NERVOUSNESS Verified 04/16/20 17:59 prednisone Allergy Severe H/A Verified 04/16/20 17:59 rofecoxib Allergy Severe UPSET Verified 04/16/20 17:59 STOMACH, CAN TAKE WITH MEALS tobramycin Allergy Severe IRRITATED Verified 04/16/20 17:59 EYES acetaminophen [Vicodin] Allergy Intermediate Unknown Verified 04/16/20 17:59 adhesive Allergy Intermediate Unknown Verified 04/16/20 17:59 cephalexin Allergy Intermediate Unknown Verified 04/16/20 17:59 chlorpheniramine [Ornade] Allergy Intermediate Unknown Verified 04/16/20 17:59 codeine Allergy Intermediate Unknown Verified 04/16/20 17:59 doxycycline Allergy Intermediate Unknown Verified 04/16/20 17:59 erythromycin base Allergy Intermediate Unknown Verified 04/16/20 17:59 flurbiprofen [Ansaid] Allergy Intermediate Unknown Verified 04/16/20 17:59 tetracycline Allergy Intermediate Unconscious Verified 04/16/20 17:59 tramadol [Ultram] Allergy Intermediate Unknown Verified 04/16/20 17:59 ciprofloxacin A
[2020-04-16] MEDS: LIDOCAINE HCL 2% JELLY 5 ML TUBE 1 APPLIC MUCOUS MEM (19:16)
[2020-04-16 19:29] VITALS: BP 114/70; PULSE 86; RESP 20; O2SAT 99
== END 2020-04-16 19:32 | disposition home or self-care (01) ==
PROVIDERS: Emergency Provider Emergency Medicine; PCP Family Medicine
DX: K56.41 Fecal impaction (principal)
CPT/HCPCS: 99283

== ENCOUNTER 2020-06-02 08:50 | Outpatient (CLI) | payer MEDICARE, SELFPAY ==
--- NOTE | ~2020-06-02 | MMUS_ITS ---
EXAMINATION: US breast LT complete, MM diagnostic juice BI w rusty HISTORY: Palpable mass of upper outer quadrant of left breast TECHNIQUE: Additional 3-D tomosynthesis images of were performed and synthetic 2-D images were genera joanna. CAD analysis was submitted and interpreted. High resolution breast ultrasound was performed. COMPARISON: None BREAST PARENCHYMAL COMPOSITION: The breasts are heterogeneously dense, which may obscure small masses . FINDINGS: MAMMOGRAPHIC FINDINGS: Bilateral benign calcifications including arterial calcifications are noted. There is heterogeneous dense stroma may obscure masses. No suspicious mass is identified mammographic ally. No architectural distortion, malignant calcification, skin thickening or retraction is detected . ULTRASOUND: 2:00 6 cm from nipple: Parallel circumscribed 3.4 x 6.3 mm sonolucency, consistent with benign cyst 11:00 3 cm from nipple: 1.9 x 4.1 mm sonolucency, with through transmission, consistent with small cy st At 2:00 at the area of clinical complaint of pain there is an area of prominent shadowing; discrete m ass lesion is not evident. Ultrasound-guided biopsy of this area is recommended. IMPRESSION: 1. Focal shadowing noted area of pain at left breast 2:00 position; 2. Ultrasound-guided biopsy at 2:00 is recommended. BI-RADS category 4, suspicious findings. Reviewed, dictated and finalized at location A. IMPRESSION: 1. Focal shadowing noted area of pain at left breast 2:00 position; 2. Ultrasound-guided biopsy at 2:00 is recommended. BI-RADS category 4, suspicious findings.
== END 2020-06-02 08:51 | disposition home or self-care (01) ==
LOC: CHSIMG 08:51
PROVIDERS: PCP Family Medicine; Visit Provider Family Medicine
DX: R92.8 Other abnormal and inconclusive findings on diagnostic imaging of breast (principal)
CPT/HCPCS: 76641; 77062; 77066; G0279

== ENCOUNTER 2020-06-10 08:43 | Outpatient (CLI) | payer MEDICARE, SELFPAY ==
[2020-06-10 09:59] LABS: Cholesterol 201 mg/dL (0-200); HDL Direct 57 mg/dL (40-60); LDL Cholesterol Calculated 104 mg/dL (<130); Triglycerides 201 mg/dL (0-150)
== END 2020-06-10 08:44 | disposition home or self-care (01) ==
LOC: CHSLAB 08:45
PROVIDERS: PCP Family Medicine; Visit Provider Internal Medicine Cardiovascular Disease
DX: I25.810 Atherosclerosis of coronary artery bypass graft(s) without angina pectoris (principal)
CPT/HCPCS: 36415; 80061

== ENCOUNTER 2020-07-16 12:12 | Outpatient (CLI) | payer MEDICARE, SELFPAY ==
[2020-07-16 12:25] LABS: Basophils Absolute Auto 0.05 K/mm3 (0.00-0.10); Basophils Percent Auto 0.8 % (0.0-1.0); Eosinophils Absolute Auto 0.19 K/mm3 (0.02-0.50); Eosinophils Percent Auto 2.9 % (1.0-6.0); Hematocrit 36.7 % (35.0-42.0); Hemoglobin 12.3 g/dL (11.7-13.8); Immature Granulocyte Absolute 0.01 K/mm3 (0.00-0.00); Immature Granulocyte Percent A 0.2 % (0.0-0.0); Lymphocytes Absolute Auto 1.66 K/mm3 (1.10-4.50); Lymphocytes Percent Auto 25.2 % (18.0-42.0); Mean Corpuscular HGB Conc 33.5 g/dL (32.0-36.0); Mean Corpuscular Hemoglobin 31.5 pg (27.0-31.0); Mean Corpuscular Volume 94.1 fL (78.0-102.0); Monocytes Absolute Auto 0.39 K/mm3 (0.10-0.90); Monocytes Percent Auto 5.9 % (2.0-11.0); Neutrophils Absolute Auto 4.3 K/mm3 (1.7-7.2); Platelet Count Result 224 K/mm3 (150-420); Red Cell Distribution Width 12.3 % (11.6-14.4); White Blood Count 6.6 K/mm3 (4.8-10.8)
[2020-07-16 12:35] LABS: Hemoglobin A1C 6.7 % (<5.7)
[2020-07-16 13:16] LABS: Alanine Aminotransferase 26 U/L (14-59); Albumin Level 4.1 g/dL (3.4-5.0); Alkaline Phosphatase 83 U/L (46-116); Anion Gap 7 mmol/L (8-16); Aspartate Amino Transferase 20 U/L (15-37); Bilirubin,Total 0.3 mg/dL (0.00-1.00); Blood Urea Nitrogen 26 mg/dL (7-18); Calcium 9.2 mg/dL (8.5-10.1); Carbon Dioxide 32 mmol/L (21-32); Chloride 97 mmol/L (98-108); Cholesterol 183 mg/dL (0-200); Estimated Glomerular Filt Rate 46; Glucose 123 mg/dL (70-99); HDL Direct 66 mg/dL (40-60); LDL Cholesterol Calculated 90 mg/dL (<130); Osmolality Calculated 287 mOsm/kg (285-295); Potassium 4.1 mmol/L (3.5-5.1); Sodium 136 mmol/L (136-145); Total Protein 7.3 g/dL (6.4-8.2); Triglycerides 134 mg/dL (0-150)
[2020-07-16 13:20] LABS: Free T4 Free Thyroxine Reflex 1.46 ng/dL (0.76-1.46)
[2020-07-19 21:42] LABS: Total Triiodothyronine (T3) 110.1 ng/dL (76-181)
[2020-07-22 07:44] LABS: T3 Reverse 23 ng/dL (8-25)
[2020-07-22 19:35] LABS: Vitamin D 25 Hydroxy 31 ng/mL (30-100)
== END 2020-07-16 12:13 | disposition home or self-care (01) ==
LOC: CHSLAB 12:14
PROVIDERS: PCP Family Medicine; Visit Provider Family Medicine
DX: E03.9 Hypothyroidism, unspecified (principal); E11.9 Type 2 diabetes mellitus without complications; E55.9 Vitamin D deficiency, unspecified
CPT/HCPCS: 36415; 80053; 80061; 82306; 83036; 84436; 84439; 84443; 84480; 84482; 85025

== ENCOUNTER 2020-09-04 00:20 | Emergency (ER) | payer MEDICARE, SELFPAY ==
--- NOTE | ~2020-09-04 | CT_ITS ---
EXAMINATION: CT brain wo con EXAM DATE: 09/04/2020 01:17 INDICATION: Fall, head injury. Right forehead hematoma. TECHNIQUE: Spiral CT of the head was performed without contrast. Axial, coronal and sagittal images were reviewed. The dose-length product (DLP) for this examination was 605.33 mGy-cm. The exposure w as tailored according to patient size, and iterative reconstruction (ASIR) was used as additional dos e reduction technique. Comparison is made to prior examination from 07/23/2019. FINDINGS: There is no acute intraparenchymal hemorrhage. No evidence of intraparenchymal brain mass lesion. No evidence of acute infarction. Please note that initial head CT has limited sensitivity f or small or acute infarctions. There is mild periventricular and subcortical hypodensity, nonspecific but probably related to small vessel ischemic disease. There is mild prominence of the sulci and v entricles related to cerebral atrophy. There is intracranial carotid arteriosclerosis. There are n o extra-axial collections. There is no mass effect or midline shift. Patient has had bilateral ocul ar lens surgery. Small right frontal scalp contusion. Mild sinus mucoperiosteal thickening. IMPRESSION: 1. No acute intracranial findings. 2. Chronic age related findings. 3. Small right frontal lobe contusion. Reviewed, dictated and finalized at location A. LE CHECKER
--- NOTE | ~2020-09-04 | XR_ITS ---
EXAMINATION: XR knee RT 3V EXAM DATE: 09/04/2020 01:19 INDICATION: Initial encounter following injury, with pain of the right knee. TECHNIQUE: Right knee frontal, crosstable lateral, orthogonal oblique projections for interpretation . Comparison is made to prior examination from 07/22/2019. FINDINGS: There is total right knee arthroplasty, hardware is in expected position. Bones are osteope don. Please note that osteopenia limits sensitivity for detecting fractures by radiographs. There ar e no acute fractures identified. There is small joint effusion. There are arterial calcifications, a rteriosclerosis. There is no significant interval change. IMPRESSION: Osteopenia. Small right knee joint effusion. Reviewed, dictated and finalized at location A. HEAD CLEANER
--- NOTE | ~2020-09-04 | XR_ITS ---
EXAMINATION: XR hip RT 2V w AP pelvis EXAM DATE: 09/04/2020 01:18 INDICATION: Fall, tenderness. TECHNIQUE: Right hip frontal, 'frog leg' projections for interpretation. Frontal projection pelvis. Comparison is made to prior examination from 03/23/2018. FINDINGS: There are no acute fractures identified. Smooth right hip femoral head contour, no radiogra phic evidence of avascular necrosis. 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 Old right superior and inferior rami fractures. There are arterial calcifications, arteriosclerosi s. IMPRESSION: Chronic findings as above. Reviewed, dictated and finalized at location A. LY TECHNICIAN IMPRESSION: Chronic findings as above.
--- NOTE | ~2020-09-04 | CT_ITS ---
EXAMINATION: CT cervical spine wo con EXAM DATE: 09/04/2020 01:18 INDICATION: Fall. Head injury. Posterior neck pain. TECHNIQUE: Spiral CT of the cervical spine was performed without contrast. Axial images were reviewe d. Coronal and sagittal reformatted images were also reviewed. The dose-length product (DLP) for thi s examination was 123.63 mGy-cm. The exposure was tailored according to patient size (auto mA exposu re control), and iterative reconstruction (ASIR) was used as additional dose reduction technique. Com parison is made to prior examination from 07/22/2019. FINDINGS: Overall moderate cervical spondylosis. There is no evidence of acute cervical fracture. Th e odontoid process is intact. Pre-dens space is normal. Prevertebral soft tissue is normal. There are no soft tissue abnormalities identified. There is no disc space widening or traumatic vertebral body subluxation suspected. Minimal anterior wedged appearance at T3 superior endplate without findi ngs to suggest this is acute. Pacemaker leads. Sternotomy wires. A detailed level by level evaluation of spondylosis can be added as addendum if requested. IMPRESSION: No acute cervical fracture. Reviewed, dictated and finalized at location A. L PRODUCTION SPECIALIST IMPRESSION: No acute cervical fracture.
[2020-09-04 00:20] VITALS: BP 187/92; PULSE 78; RESP 18; TEMP 36.3; O2SAT 93
--- NOTE | 2020-09-04 00:37 | ED.FALL ---
HPI - Fall General Chief Complaint: Fall Stated Complaint: Fall Time Seen by Provider: 09/04/20 00:37 Source: patient Mode of arrival: ambulatory Limitations: no limitations History of Present Illness HPI Narrative: 85-year-old woman history of right total knee arthroplasty and atrial fibrillation on rivaroxaban comes to the emergency department complaining pain in her forehead, her right hip in her right knee after she fell at home. Patient states that she has had multiple falls recently. She states that she did not have loss of consciousness, lightheadedness, chest pain, rapid heart rate, palpitations were vertigo before she fell. She states that occurred approximately 2 hours to get off the floor before her son brought her here. She was able to ambulate unassisted. MD complaint: fall Onset (ago): hour(s) (2) Fall from: standing Fall witnessed: no Place fall occurred: home Loss of consciousness: none Prolonged down time: no Symptoms prior to fall: none Context: history of frequent falls Location of injury: head and pelvis Location of injury - extremities: Right: thigh and knee Severity: mild Quality: sharp and aching Associated symptoms (after fall): headache Related Data Home Medications Medication Instructions Recorded Confirmed aspirin [Aspir-81] 81 mg PO DAILY 07/22/19 09/04/20 spironolactone 25 mg PO DAILY 11/10/19 07/16/20 furosemide 40 mg PO DAILY 09/04/20 09/04/20 levothyroxine 137 mcg PO DAILY 09/04/20 09/04/20 Allergies Allergy/AdvReac Type Severity Reaction Status Date / Time adhesive tape Allergy Severe BLISTERS Verified 07/16/20 11:56 amiodarone Allergy Severe N/V, Verified 07/16/20 11:56 HEADACHE, HOSPITALIZED atorvastatin Allergy Severe SWELLING Verified 07/16/20 11:56 butorphanol Allergy Severe RESTLESSNES Verified 07/16/20 11:56 S cerivastatin Allergy Severe ABDOMINAL Verified 07/16/20 11:56 PAIN, H/A clindamycin Allergy Severe TACHYCARDIA Verified 07/16/20 11:56 dexamethasone Allergy Severe IRRITATED Verified 07/16/20 11:56 EYES duloxetine Allergy Severe H/A Verified 07/16/20 11:56 enalaprilat Allergy Severe COUGH Verified 07/16/20 11:56 gabapentin Allergy Severe CHF Verified 07/16/20 11:56 gemfibrozil Allergy Severe ELEVATED Verified 07/16/20 11:56 CHOLESTEROL guaifenesin Allergy Severe NERVOUSNESS Verified 07/16/20 11:56 hydrocodone Allergy Severe N/V Verified 07/16/20 11:56 isosorbide Allergy Severe H/A Verified 07/16/20 11:56 ketorolac Allergy Severe CHEST PAIN Verified 07/16/20 11:56 levofloxacin Allergy Severe VOMITING Verified 07/16/20 11:56 meperidine Allergy Severe H/A Verified 07/16/20 11:56 nifedipine Allergy Severe SWELLING Verified 07/16/20 11:56 nitroglycerin Allergy Severe VOMITING Verified 07/16/20 11:56 norfloxacin Allergy Severe SWELLING Verified 07/16/20 11:56 oxycodone Allergy Severe VOMITING Verified 07/16/20 11:56 phenylephrine Allergy Severe NERVOUSNESS Verified 07/16/20 11:56 phenylpropanolamine Allergy Severe NERVOUSNESS Verified 07/16/20 11:56 prednisone Allergy Severe H/A Verified 07/16/20 11:56 rofecoxib Allergy Severe UPSET Verified 07/16/20 11:56 STOMACH, CAN TAKE WITH MEALS tobramycin Allergy Severe IRRITATED Verified 07/16/20 11:56 EYES acetaminophen [Vicodin] Allergy Intermediate Unknown Verified 07/16/20 11:56 adhesive Allergy Intermediate Unknown Verified 07/16/20 11:56 cephalexin Allergy Intermediate Unknown Verified 07/16/20 11:56 chlorpheniramine [Ornade] Allergy Intermediate Unknown Verified 07/16/20 11:56 codeine Allergy Intermediate Unknown Verified 07/16/20 11:56 doxycycline Allergy Intermediate Unknown Verified 07/16/20 11:56 erythromycin base Allergy Intermediate Unknown Verified 07/16/20 11:56 flurbiprofen [Ansaid] Allergy Intermediate Unknown Verified 07/16/20 11:56 tetracycline Allergy Intermediate Unconscious Verified 07/16/20 11:56 tramadol [Ultram] Allergy Intermediate Unknown Verified 07/16/20 11:56 ciproflox
[2020-09-04] MEDS: ACETAMINOPHEN 500 MG TABLET 1000 MG PO (01:20)
[2020-09-04 02:01] VITALS: BP 140/56; PULSE 75; RESP 20; O2SAT 97
== END 2020-09-04 02:03 | disposition home or self-care (01) ==
LOC: CHSED 00:28
PROVIDERS: Emergency Provider Emergency Medicine; PCP Family Medicine
DX: S09.90XA Unspecified injury of head, initial encounter (principal); Z79.01 Long term (current) use of anticoagulants; S41.112A Laceration without foreign body of left upper arm, initial encounter; W19.XXXA Unspecified fall, initial encounter
CPT/HCPCS: 70450; 72125; 73502; 73562; 99282; 99284

== ENCOUNTER 2020-09-22 10:04 | Outpatient (CLI) | payer MEDICARE, SELFPAY ==
[2020-09-22 11:14] LABS: Free T4 Free Thyroxine 1.28 ng/dL (0.76-1.46)
[2020-09-22 11:25] LABS: Thyroid Stimulating Hormone Reflex 0.27 u/IU/mL (0.36-3.74)
[2020-09-25 02:06] LABS: T4 Thyroxine 9.7 mcg/dL (5.1-11.9)
[2020-09-25 11:41] LABS: T3 Reverse 16 ng/dL (8-25)
[2020-09-25 16:08] LABS: Total Triiodothyronine (T3) 81 ng/dL (76-181)
== END 2020-09-22 10:05 | disposition home or self-care (01) ==
LOC: CHSLAB 10:05
PROVIDERS: PCP Family Medicine; Visit Provider Family Medicine
DX: E03.9 Hypothyroidism, unspecified (principal)
CPT/HCPCS: 36415; 84436; 84439; 84443; 84480; 84482

== ENCOUNTER 2020-10-13 18:46 | Emergency (ER) | payer MEDICARE, SELFPAY ==
[2020-10-13 19:15] VITALS: BP 160/88; PULSE 90; RESP 20; TEMP 36.6; O2SAT 95
[2020-10-13] MEDS: ONDANSETRON INJ 4 MG/2 ML VIAL IV PUSH (19:18)
[2020-10-13] MEDS: LACTATED RINGERS 1,000 ML 500 ML IV CONT (19:19)
[2020-10-13 19:23] LABS: Basophils Absolute Auto 0.02 K/mm3 (0.00-0.10); Basophils Percent Auto 0.3 % (0.0-1.0); Eosinophils Absolute Auto 0.02 K/mm3 (0.02-0.50); Eosinophils Percent Auto 0.3 % (1.0-6.0); Hematocrit 34.3 % (35.0-42.0); Hemoglobin 11.9 g/dL (11.7-13.8); Immature Granulocyte Absolute 0.02 K/mm3 (0.00-0.00); Immature Granulocyte Percent A 0.3 % (0.0-0.0); Lymphocytes Absolute Auto 0.55 K/mm3 (1.10-4.50); Lymphocytes Percent Auto 6.9 % (18.0-42.0); Mean Corpuscular HGB Conc 34.7 g/dL (32.0-36.0); Mean Corpuscular Hemoglobin 31.6 pg (27.0-31.0); Mean Corpuscular Volume 91.2 fL (78.0-102.0); Mean Platelet Volume 9.7 fl (9.2-11.8); Monocytes Absolute Auto 0.11 K/mm3 (0.10-0.90); Monocytes Percent Auto 1.4 % (2.0-11.0); Neutrophils Absolute Auto 7.3 K/mm3 (1.7-7.2); Neutrophils Percent Auto 90.8 % (50.0-70.0); Platelet Count Result 193 K/mm3 (150-420); Red Blood Count 3.76 M/mm3 (4.20-5.40); Red Cell Distribution Width 12.6 % (11.6-14.4)
[2020-10-13 19:38] LABS: Alanine Aminotransferase 23 U/L (14-59); Albumin Level 4.1 g/dL (3.4-5.0); Alkaline Phosphatase 85 U/L (46-116); Anion Gap 9 mmol/L (8-16); Aspartate Amino Transferase 16 U/L (15-37); Bilirubin,Total 0.5 mg/dL (0.00-1.00); Blood Urea Nitrogen 27 mg/dL (7-18); Calcium 9.2 mg/dL (8.5-10.1); Carbon Dioxide 30 mmol/L (21-32); Chloride 93 mmol/L (98-108); Estimated CRCL calculation 30 ml/min; Estimated Glomerular Filt Rate 58; Glucose 204 mg/dL (70-99); Lipase 31 U/L (73-393); Osmolality Calculated 285 mOsm/kg (285-295); Potassium 3.9 mmol/L (3.5-5.1); Sodium 132 mmol/L (136-145); Total Protein 7.8 g/dL (6.4-8.2)
[2020-10-13 19:43] LABS: Lactic Acid Reflex 0.9 mmol/L (0.4-2.0)
--- NOTE | 2020-10-13 21:01 | ED.NAVMDI ---
HPI - Nausea/Vomiting/Diarrhea General Chief complaint: Nausea/Vomiting/Diarrhea Stated complaint: vomiting,weakness Time Seen by Provider: 10/13/20 19:25 Source: patient and family Mode of arrival: ambulatory Limitations: no limitations History of Present Illness HPI Narrative: Patient comes in complaining of abdominal discomfort, nausea and two episodes of vomiting. She has not felt well since earlier today. She did eat breakfast, but has been anorexic most of the day. MD elicited complaint: nausea and vomiting Pertinent past history: anorexia Onset (ago): hour(s) Description of vomiting: food contents and watery Associated nausea: Yes Associated abdominal pain: Yes Location of pain: suprapubic Pain consistency: intermittent Severity: moderate Quality: cramping Exacerbating factors: eating and vomiting Relieving factors: rest Context: possible food poisoning Associated symptoms: denies other symptoms, malaise, nausea/vomiting and weakness Related Data Home Medications Medication Instructions Recorded Confirmed aspirin [Aspir-81] 81 mg PO DAILY 07/22/19 10/13/20 spironolactone 25 mg PO DAILY 11/10/19 10/13/20 furosemide 40 mg PO DAILY 09/04/20 10/13/20 Allergies Allergy/AdvReac Type Severity Reaction Status Date / Time adhesive tape Allergy Severe BLISTERS Verified 09/18/20 14:41 amiodarone Allergy Severe N/V, Verified 09/18/20 14:41 HEADACHE, HOSPITALIZED atorvastatin Allergy Severe SWELLING Verified 09/18/20 14:41 butorphanol Allergy Severe RESTLESSNES Verified 09/18/20 14:41 S cerivastatin Allergy Severe ABDOMINAL Verified 09/18/20 14:41 PAIN, H/A clindamycin Allergy Severe TACHYCARDIA Verified 09/18/20 14:41 dexamethasone Allergy Severe IRRITATED Verified 09/18/20 14:41 EYES duloxetine Allergy Severe H/A Verified 09/18/20 14:41 enalaprilat Allergy Severe COUGH Verified 09/18/20 14:41 gabapentin Allergy Severe CHF Verified 09/18/20 14:41 gemfibrozil Allergy Severe ELEVATED Verified 09/18/20 14:41 CHOLESTEROL guaifenesin Allergy Severe NERVOUSNESS Verified 09/18/20 14:41 hydrocodone Allergy Severe N/V Verified 09/18/20 14:41 isosorbide Allergy Severe H/A Verified 09/18/20 14:41 ketorolac Allergy Severe CHEST PAIN Verified 09/18/20 14:41 levofloxacin Allergy Severe VOMITING Verified 09/18/20 14:41 meperidine Allergy Severe H/A Verified 09/18/20 14:41 nifedipine Allergy Severe SWELLING Verified 09/18/20 14:41 nitroglycerin Allergy Severe VOMITING Verified 09/18/20 14:41 norfloxacin Allergy Severe SWELLING Verified 09/18/20 14:41 oxycodone Allergy Severe VOMITING Verified 09/18/20 14:41 phenylephrine Allergy Severe NERVOUSNESS Verified 09/18/20 14:41 phenylpropanolamine Allergy Severe NERVOUSNESS Verified 09/18/20 14:41 prednisone Allergy Severe H/A Verified 09/18/20 14:41 rofecoxib Allergy Severe UPSET Verified 09/18/20 14:41 STOMACH, CAN TAKE WITH MEALS tobramycin Allergy Severe IRRITATED Verified 09/18/20 14:41 EYES acetaminophen [Vicodin] Allergy Intermediate Unknown Verified 09/18/20 14:41 adhesive Allergy Intermediate Unknown Verified 09/18/20 14:41 cephalexin Allergy Intermediate Unknown Verified 09/18/20 14:41 chlorpheniramine [Ornade] Allergy Intermediate Unknown Verified 09/18/20 14:41 codeine Allergy Intermediate Unknown Verified 09/18/20 14:41 doxycycline Allergy Intermediate Unknown Verified 09/18/20 14:41 erythromycin base Allergy Intermediate Unknown Verified 09/18/20 14:41 flurbiprofen [Ansaid] Allergy Intermediate Unknown Verified 09/18/20 14:41 tetracycline Allergy Intermediate Unconscious Verified 09/18/20 14:41 tramadol [Ultram] Allergy Intermediate Unknown Verified 09/18/20 14:41 ciprofloxacin Allergy Unknown Unknown Verified 09/18/20 14:41 diclofenac Allergy Unknown Unknown Verified 09/18/20 14:41 hydroxyzine Allergy Unknown Unknown Verified 09/18/20 14:41 Penicillins Allergy Unknown Unknown Verified 09/18/20 14:41 propoxyphene Allergy Unknown Unknown Verified
[2020-10-13 21:11] VITALS: BP 145/53; PULSE 79; RESP 20; TEMP 37.1; O2SAT 98
== END 2020-10-13 21:28 | disposition home or self-care (01) ==
PROVIDERS: Emergency Provider Emergency Medicine; PCP Family Medicine
DX: N12 Tubulo-interstitial nephritis, not specified as acute or chronic (principal); I48.91 Unspecified atrial fibrillation; Z79.01 Long term (current) use of anticoagulants; N18.30 Chronic kidney disease, stage 3 unspecified; I50.9 Heart failure, unspecified; E11.9 Type 2 diabetes mellitus without complications
CPT/HCPCS: 36415; 80053; 83605; 83690; 85025; 96361; 96365; 96375; 99283; 99284; J0696; J2405; J7120

== ENCOUNTER 2020-10-16 13:39 | Outpatient (CLI) | payer MEDICARE, SELFPAY ==
[2020-10-16 13:56] LABS: Add Urine Microscopic? YES; Appearance Urine Clear (Clear); Bilirubin Urine Negative (Negative); Blood Urine Negative (Negative); Color Urine Yellow (Yellow); Glucose Urine UA Negative (Negative); Ketones Urine Negative (Negative); Leukocyte Esterase Ur 3+ (Negative); Nitrate Urine Negative (Negative); Protein Urine Negative (Negative); Specific Grav Ur 1.015 (1.010-1.020); Urobilinogen Urine 0.2 mg/dL (0.2-1.0); pH Urine 5.5 (5.0-8.0)
[2020-10-16 14:02] LABS: Bacteria Urine 4+ /hpf; Squamous Epithelial Cell Urine Few /hpf (Few); WBC Urine 51-75 /hpf (0-3)
== END 2020-10-16 13:40 | disposition home or self-care (01) ==
LOC: CHSLAB 13:41
PROVIDERS: PCP Family Medicine; Visit Provider Family Medicine
DX: N39.0 Urinary tract infection, site not specified (principal)
CPT/HCPCS: 81001; 87086

== ENCOUNTER 2020-10-21 02:05 | Emergency (ER) | payer MEDICARE, SELFPAY ==
[2020-10-21] VITALS (7 sets, daily range): BP systolic 88–109; BP diastolic 47–59; PULSE 70; RESP 12–20; TEMP 36.3; O2SAT 90–100
--- NOTE | ~2020-10-21 | CT_ITS ---
EXAMINATION: CT brain wo con DATE: 10/21/2020 04:22 INDICATION: Head injury. TECHNIQUE: Computed tomography (CT) of the head was performed without intravenous contrast. The mA wa s adjusted according to patient size. Iterative reconstruction technique was employed. The dose-lengt h product was 605.33 mGy-cm. COMPARISON: Head CT 09/04/2020 FINDINGS: There is no intracranial hemorrhage, acute infarction, or abnormal intracranial mass lesion . The ventricles are normal in size. There is mucosal thickening in the paranasal sinuses. The mastoi d air cells are normal. There are likely changes of ocular lens replacement surgeries. IMPRESSION: 1. Normal brain. Reviewed, dictated and finalized at location A. OYEE RELATIONS DIRECTOR IMPRESSION: 1. Normal brain.
--- NOTE | ~2020-10-21 | XR_ITS ---
EXAMINATION: XR chest 1V portable DATE: 10/21/2020 03:32 INDICATION: Hypotension. TECHNIQUE: A single frontal view of the chest was obtained. COMPARISON: Chest 2 views 03/30/2020, CT abdomen and pelvis 10/21/2020 FINDINGS: There is mild atelectasis at left lung base. No pleural effusion or pneumothorax. Cardiomeg ramesh is noted. Median sternotomy wires and mediastinal surgical clips are seen, likely from prior rachna nary artery bypass grafting. There is a left chest wall pacer with leads in the right atrium and righ t ventricle. Surgical clips in the right upper quadrant are likely from cholecystectomy. IMPRESSION: 1. Mild atelectasis at left lung base. 2. Cardiomegaly. Reviewed, dictated and finalized at location A. UAGE ARTS TEACHER
--- NOTE | ~2020-10-21 | CT_ITS ---
EXAMINATION: CT abdomen pelvis wo con DATE: 10/21/2020 04:22 INDICATION: Abdominal pain. Nausea. TECHNIQUE: Computed tomography (CT) of the abdomen and pelvis was performed without intravenous contr ast. Automated exposure control and iterative reconstruction technique were employed. The dose-length product was 269.72 mGy-cm. COMPARISON: CT abdomen and pelvis 03/30/2020 FINDINGS: The visualized portions of the lung bases demonstrate mild atelectasis. No pleural effusion . Cardiomegaly is noted. There are changes of mitral valve replacement. There are coronary artery teagan cifications. No pericardial effusion. There are pacer wires in right atrium and right ventricle. The liver and spleen are normal. There are changes of cholecystectomy. The pancreas, adrenal glands, and kidneys are normal. There is no urolithiasis. There is wall thickening of the colon from the splenic flexure to the sigmoid colon. There is a large volume of stool in the colon. The rectum is distended. The stomach is distended and fluid-filled. There is fluid in the esophagus. There are no pathologica lly enlarged lymph nodes. There is calcified atherosclerosis of the aorta and many of the other arter ies. There is a small volume of ascites. There are old healed fractures of right superior and inferio r pubic rami. There is an old healed fracture of right sacral ala. There is severe lumbar spondylosis . IMPRESSION: 1. Wall thickening of the colon from the splenic flexure to the sigmoid colon, consistent with coliti s. Large volume of colonic stool with rectal distention. 2. Distention of the stomach of uncertain significance. 3. Small volume of ascites. Reviewed, dictated and finalized at location A. VERY ROOM RN IMPRESSION: 1. Wall thickening of the colon from the splenic flexure to the sigmoid colon, consistent with colitis. Large volume of colonic stool with rectal distention. 2. Distention of the stomach of uncertain significance. 3. Small volume of ascites.
--- NOTE | 2020-10-21 02:25 | ED.SOB ---
HPI - SOB/Dyspnea General Chief Complaint: Shortness of Breath/Dyspnea Stated Complaint: Weakness, Fall Time Seen by Provider: 10/21/20 02:25 Source: patient Mode of arrival: EMS Limitations: altered mental status History of Present Illness HPI Narrative: 85-year-old woman with a history of type 2 diabetes, congestive heart failure, and recent diagnosis of pyelonephritis brought to the emergency department by EMS after feeling weak at home. She states she has had abdominal pain, vomiting and diarrhea. She had red blood in her stools about 1 week ago, but none since. Patient states that she has had 4 falls in the last day or 2. She complains of head pain after striking her head, left hip and low back pain after falling. She states that she has chest pain and shortness of breath but denies any fever, dysuria, hematuria, or cough. She denies any sick exposures. She last took her rivaroxaban Monday at supper time. She was too sick to take it last night. MD elicited complaint: shortness of breath Pertinent past history: congestive heart failure Onset (ago): day(s) (1-2) Context: trauma/injury Timing: constant and progressively worsening Severity: moderate Exacerbating factors: movement Relieving factors: rest Known history of: congestive heart failure and diabetes Associated symptoms: chest pain and nausea/vomiting Treatment prior to arrival: other (IVF) Related Data Home Medications Medication Instructions Recorded Confirmed aspirin [Aspir-81] 81 mg PO DAILY 07/22/19 10/21/20 furosemide 40 mg PO DAILY 09/04/20 10/21/20 ferrous sulfate 27 mg PO BID 10/21/20 10/21/20 fosinopril 10 mg PO BID 10/21/20 10/21/20 levothyroxine 112 mcg PO DAILY 10/21/20 10/21/20 potassium chloride 10 meq PO DAILY 10/21/20 10/21/20 pravastatin 20 mg PO DAILY 10/21/20 10/21/20 rivaroxaban [Xarelto] 15 mg PO DAILY 10/21/20 10/21/20 semaglutide [Ozempic] 0.5 mg SUBCUT WEEKLY 10/21/20 10/21/20 Allergies Allergy/AdvReac Type Severity Reaction Status Date / Time adhesive tape Allergy Severe BLISTERS Verified 10/21/20 09:34 amiodarone Allergy Severe N/V, Verified 10/21/20 09:34 HEADACHE, HOSPITALIZED atorvastatin Allergy Severe SWELLING Verified 10/21/20 09:34 butorphanol Allergy Severe RESTLESSNES Verified 10/21/20 09:34 S cerivastatin Allergy Severe ABDOMINAL Verified 10/21/20 09:34 PAIN, H/A clindamycin Allergy Severe TACHYCARDIA Verified 10/21/20 09:34 dexamethasone Allergy Severe IRRITATED Verified 10/21/20 09:34 EYES duloxetine Allergy Severe H/A Verified 10/21/20 09:34 gabapentin Allergy Severe CHF Verified 10/21/20 09:34 gemfibrozil Allergy Severe ELEVATED Verified 10/21/20 09:34 CHOLESTEROL guaifenesin Allergy Severe NERVOUSNESS Verified 10/21/20 09:34 hydrocodone Allergy Severe N/V Verified 10/21/20 09:34 isosorbide Allergy Severe H/A Verified 10/21/20 09:34 ketorolac Allergy Severe CHEST PAIN Verified 10/21/20 09:34 levofloxacin Allergy Severe VOMITING Verified 10/21/20 09:34 nifedipine Allergy Severe SWELLING Verified 10/21/20 09:34 nitroglycerin Allergy Severe VOMITING Verified 10/21/20 09:34 norfloxacin Allergy Severe SWELLING Verified 10/21/20 09:34 oxycodone Allergy Severe VOMITING Verified 10/21/20 09:34 phenylephrine Allergy Severe NERVOUSNESS Verified 10/21/20 09:34 phenylpropanolamine Allergy Severe NERVOUSNESS Verified 10/21/20 09:34 prednisone Allergy Severe H/A Verified 10/21/20 09:34 rofecoxib Allergy Severe UPSET Verified 10/21/20 09:34 STOMACH, CAN TAKE WITH MEALS tobramycin Allergy Severe IRRITATED Verified 10/21/20 09:34 EYES adhesive Allergy Intermediate Unknown Verified 10/21/20 09:34 chlorpheniramine [Ornade] Allergy Intermediate Unknown Verified 10/21/20 09:34 codeine Allergy Intermediate Unknown Verified 10/21/20 09:34 doxycycline Allergy Intermediate Unknown Verified 10/21/20 09:34 erythromycin base Allergy Intermediate Unknown Verified 10/21/20 09:34 flurbiprofen [Ansaid] Allergy I
--- NOTE | 2020-10-21 02:31 | ECG_ITS ---
Measurements Intervals [place] Rate: 70 P: HI: 0 QRS: -81 QRSD: 221 T: 107 QT: 533 QTc: 576 Interpretive Statements ELECTRONIC VENTRICULAR PACEMAKER BASELINE ARTIFACT- I, II, III, AVR, AVL, AVF, V1-V6 NO FURTHER INTERPRETATION IS POSSIBLE ATYPICAL ECG Electronically Signed On 10-21-2020 7:20:16 RESEARCH PROFESSOR by Jim Herr D.O.
[2020-10-21] MEDS: SODIUM CHLORIDE 0.9% IV 1,000 ML 999 ML IV CONT ×2 (03:15→03:55)
[2020-10-21 03:18] LABS: Basophils Absolute Auto 0.03 K/mm3 (0.00-0.10); Basophils Percent Auto 0.2 % (0.0-1.0); Hematocrit 39.1 % (35.0-42.0); Hemoglobin 13.2 g/dL (11.7-13.8); Immature Granulocyte Absolute 0.14 K/mm3 (0.00-0.00); Immature Granulocyte Percent A 0.7 % (0.0-0.0); Lymphocytes Absolute Auto 0.68 K/mm3 (1.10-4.50); Lymphocytes Percent Auto 3.5 % (18.0-42.0); Mean Corpuscular HGB Conc 33.8 g/dL (32.0-36.0); Mean Corpuscular Volume 94.9 fL (78.0-102.0); Mean Platelet Volume 10.7 fl (9.2-11.8); Monocytes Absolute Auto 1.19 K/mm3 (0.10-0.90); Monocytes Percent Auto 6.1 % (2.0-11.0); Neutrophils Absolute Auto 17.6 K/mm3 (1.7-7.2); Neutrophils Percent Auto 89.5 % (50.0-70.0); Platelet Count Result 283 K/mm3 (150-420); Red Blood Count 4.12 M/mm3 (4.20-5.40); Red Cell Distribution Width 12.9 % (11.6-14.4); White Blood Count 19.7 K/mm3 (4.8-10.8)
[2020-10-21 03:35] LABS: Alanine Aminotransferase 68 U/L (14-59); Albumin Level 3.3 g/dL (3.4-5.0); Alkaline Phosphatase 78 U/L (46-116); Anion Gap 16 mmol/L (8-16); Aspartate Amino Transferase 95 U/L (15-37); Bilirubin,Total 0.8 mg/dL (0.00-1.00); Blood Urea Nitrogen 65 mg/dL (7-18); CRP 1.9 mg/dL (0.0-0.9); Calcium 8.9 mg/dL (8.5-10.1); Carbon Dioxide 23 mmol/L (21-32); Chloride 97 mmol/L (98-108); Estimated CRCL calculation 14 ml/min; Estimated Glomerular Filt Rate 21; Glucose 152 mg/dL (70-99); Lipase 185 U/L (73-393); Osmolality Calculated 303 mOsm/kg (285-295); Potassium 6.2 mmol/L (3.5-5.1); Sodium 136 mmol/L (136-145); Total Protein 6.5 g/dL (6.4-8.2)
[2020-10-21 03:37] LABS: BNP 60.6 pg/mL (0-100)
[2020-10-21 03:38] LABS: INR 1.3; Lactic Acid Reflex 8.5 mmol/L (0.4-2.0); Partial Thromboplastin Time 30.5 SEC (23.90-30.70); Prothrombin Time 13.7 Seconds (9.50-12.10)
[2020-10-21 03:41] LABS: D Dimer 5.27 mg/L (0.19-0.50)
[2020-10-21 03:47] LABS: Influenza Control Valid (Valid); SARS-CoV-2 Ag Negative (Negative)
[2020-10-21 03:49] LABS: Add Urine Microscopic? NO; Appearance Urine Clear (Clear); Bilirubin Urine Negative (Negative); Blood Urine Negative (Negative); Color Urine Yellow (Yellow); Glucose Urine UA Negative (Negative); Ketones Urine Negative (Negative); Leukocyte Esterase Ur Negative LEU/UL (Negative); Nitrate Urine Negative (Negative); Protein Urine Negative (Negative); Urobilinogen Urine 0.2 mg/dL (0.2-1.0)
--- NOTE | 2020-10-21 05:05 | PC.NURSE ---
Call placed to [facility] for pt. request to transfer there. Spoke tang Vizcaino, will await call back from Dr. Miles.
--- NOTE | 2020-10-21 06:01 | PC.NURSE ---
Call back received from both Dr. Miles and surgeon Dr. Cooper, Orders received to transfer. Paperwork all signed for transfer.
[2020-10-21] MEDS: metroNIDAZOLE 500 MG/ISO 100ML 500 MG/100 ML BAG 100 MG IVPB (06:10)
[2020-10-21 06:18] LABS: Reflex Lactic Acid Yes or No Add Lactic
--- NOTE | 2020-10-21 06:21 | PC.NURSE ---
Awaiting call back from Pharmacovigilance Specialist per request that ERP Dr. Edwards speak c an technology education instructor before transfer. Pt. condition stable at this time, remains A&Ox3 and VSS.
[2020-10-21] MEDS: CALCIUM CHLORIDE 1,000 MG/10 ML SYRINGE 1000 MG IV PUSH (06:29)
[2020-10-21 06:43] LABS: Occult Blood Positive (Negative)
[2020-10-21] MEDS: ALBUTEROL SULFATE NEB 2.5 MG/3 ML INH 5 MG INHALATION (06:53)
[2020-10-21 07:06] LABS: Anion Gap 14 mmol/L (8-16); Blood Urea Nitrogen 65 mg/dL (7-18); Calcium 10.2 mg/dL (8.5-10.1); Carbon Dioxide 22 mmol/L (21-32); Chloride 98 mmol/L (98-108); Estimated CRCL calculation 16 ml/min; Estimated Glomerular Filt Rate 23; Glucose 201 mg/dL (70-99); Osmolality Calculated 302 mOsm/kg (285-295); Potassium 5.1 mmol/L (3.5-5.1); Sodium 134 mmol/L (136-145)
--- NOTE | 2020-10-21 07:07 | PC.NURSE ---
Attempted insert of NG tube, pt. having excessive gagging and vomiting while trying to insert. Noted Spo2 desat to 86% and pt. coughing while trying to insert. Pt. unable to tolerate and refuses anymore attempts and states she wishes to be put out if NG needs to go in. ERP informed of attempt and pt. wishes.
[2020-10-21] MEDS: ONDANSETRON INJ 4 MG/2 ML VIAL IV PUSH (07:10)
[2020-10-21 07:16] LABS: Lactic Acid 3.9 mmol/L (0.4-2.0)
[2020-10-21] MEDS: SODIUM CHLORIDE 0.9% IV 500 ML 999 ML IV CONT (07:32)
--- NOTE | 2020-10-21 07:44 | ED.GENADULT ---
HPI - General Adult General Chief complaint: Shortness of Breath/Dyspnea Stated complaint: Weakness, Fall Time Seen by Provider: 10/21/20 02:25 Source: patient Mode of arrival: EMS Limitations: altered mental status History of Present Illness HPI narrative: Patient care was resumed at 0715. Please see Dr. Edwards's note for further details of history. Related Data Home Medications Medication Instructions Recorded Confirmed aspirin [Aspir-81] 81 mg PO DAILY 07/22/19 10/21/20 spironolactone 25 mg PO DAILY 11/10/19 10/21/20 furosemide 40 mg PO DAILY 09/04/20 10/21/20 ferrous sulfate 27 mg PO DAILY 10/21/20 10/21/20 rivaroxaban [Xarelto] 15 mg PO DAILY 10/21/20 10/21/20 semaglutide [Ozempic] 0.5 mg SUBCUT WEEKLY 10/21/20 10/21/20 Allergies Allergy/AdvReac Type Severity Reaction Status Date / Time adhesive tape Allergy Severe BLISTERS Verified 10/16/20 09:44 amiodarone Allergy Severe N/V, Verified 10/16/20 09:44 HEADACHE, HOSPITALIZED atorvastatin Allergy Severe SWELLING Verified 10/16/20 09:44 butorphanol Allergy Severe RESTLESSNES Verified 10/16/20 09:44 S cerivastatin Allergy Severe ABDOMINAL Verified 10/16/20 09:44 PAIN, H/A clindamycin Allergy Severe TACHYCARDIA Verified 10/16/20 09:44 dexamethasone Allergy Severe IRRITATED Verified 10/16/20 09:44 EYES duloxetine Allergy Severe H/A Verified 10/16/20 09:44 enalaprilat Allergy Severe COUGH Verified 10/16/20 09:44 gabapentin Allergy Severe CHF Verified 10/16/20 09:44 gemfibrozil Allergy Severe ELEVATED Verified 10/16/20 09:44 CHOLESTEROL guaifenesin Allergy Severe NERVOUSNESS Verified 10/16/20 09:44 hydrocodone Allergy Severe N/V Verified 10/16/20 09:44 isosorbide Allergy Severe H/A Verified 10/16/20 09:44 ketorolac Allergy Severe CHEST PAIN Verified 10/16/20 09:44 levofloxacin Allergy Severe VOMITING Verified 10/16/20 09:44 meperidine Allergy Severe H/A Verified 10/16/20 09:44 nifedipine Allergy Severe SWELLING Verified 10/16/20 09:44 nitroglycerin Allergy Severe VOMITING Verified 10/16/20 09:44 norfloxacin Allergy Severe SWELLING Verified 10/16/20 09:44 oxycodone Allergy Severe VOMITING Verified 10/16/20 09:44 phenylephrine Allergy Severe NERVOUSNESS Verified 10/16/20 09:44 phenylpropanolamine Allergy Severe NERVOUSNESS Verified 10/16/20 09:44 prednisone Allergy Severe H/A Verified 10/16/20 09:44 rofecoxib Allergy Severe UPSET Verified 10/16/20 09:44 STOMACH, CAN TAKE WITH MEALS tobramycin Allergy Severe IRRITATED Verified 10/16/20 09:44 EYES acetaminophen [Vicodin] Allergy Intermediate Unknown Verified 10/16/20 09:44 adhesive Allergy Intermediate Unknown Verified 10/16/20 09:44 chlorpheniramine [Ornade] Allergy Intermediate Unknown Verified 10/16/20 09:44 codeine Allergy Intermediate Unknown Verified 10/16/20 09:44 doxycycline Allergy Intermediate Unknown Verified 10/16/20 09:44 erythromycin base Allergy Intermediate Unknown Verified 10/16/20 09:44 flurbiprofen [Ansaid] Allergy Intermediate Unknown Verified 10/16/20 09:44 tetracycline Allergy Intermediate Unconscious Verified 10/16/20 09:44 tramadol [Ultram] Allergy Intermediate Unknown Verified 10/16/20 09:44 cephalexin Allergy Mild Rash Verified 10/16/20 10:09 ciprofloxacin Allergy Unknown Unknown Verified 10/16/20 09:44 diclofenac Allergy Unknown Unknown Verified 10/16/20 09:44 hydroxyzine Allergy Unknown Unknown Verified 10/16/20 09:44 Penicillins Allergy Unknown Unknown Verified 10/16/20 09:44 propoxyphene Allergy Unknown Unknown Verified 10/16/20 09:44 terfenadine Allergy Unknown Unknown Verified 10/16/20 09:44 Review of Systems Review of Systems: ROS unobtainable: Yes unobtainable due to mental status PMFSH Past Medical History Medical History A-fib Abdominal pain Cardiomegaly Chronic anticoagulation CKD (chronic kidney disease) stage 3, GFR 30-59 ml/min Closed head injury Congestive heart failure Contusion o
--- NOTE | 2020-10-21 07:48 | PC.NURSE ---
Report given to Chel Rn at [facility] for transfer, call placed to [facility] for transfer
--- NOTE | 2020-10-21 08:25 | PC.NURSE ---
PATIENTS BLOOD PRESSURE 97/49 PRIOR TO TRANSFER BY [facility]. 98% ON 3L NC. R 16. HR PT IS ALERT AND ORIENTED AND ANSWERING ALL QUESTIONS APPROPRIATELY.
--- NOTE | 2020-10-21 08:44 | PC.NURSE ---
Addendum entered by Agustina Walker RN 10/21/20 08:54: 3 CONSECUTIVE BP READING PRIOR TO TRANSFER 95/56 AT 0800, 104/49 AT 0807, AND 98/74 AT 0810. NEXT READING AT 0815 IS INACCURATE DUE TO RN READJUSTING POSITION OF BP CUFF. Original Note: 0700 rn
--- NOTE | 2020-10-21 08:45 | PC.NURSE ---
0700 RN ARRIVED ON SHIFT. PT SITTING STRAIGHT UP ON STRETCHER DURING NG INSERTION ATTEMPT ACCOMPANIED BY SALVADOR ROSALES AND VIVIAN PALOMARES. NG INSERTION UNSUCCESSFUL. PT REFUSED A SECOND ATTEMPT. PTS VITAL SIGNS PRIOR TO NG ATTEMPT AT 0645 WAS 111/46, 70, 15, 97% 3L NC. PTS VITAL SIGNS AFTER NG ATTEMPT AND RECOVERY 93/53, 71, 15, 95% 3L NC AT 0737. 107/53, 70, 15, 100% 3L NC AT 0748. 110/50, 70, 17, 100% 3L NC AT 0754.
--- NOTE | 2020-10-21 12:27 | PM.CNCAR ---
Assessment and Plan Assessment and plan (1) Septic shock: Code(s): A41.9 - Sepsis, unspecified organism; R65.21 - Severe sepsis with septic shock Status: Acute Assessment and Plan: On IV antibiotics and Levophed drip. Management per pharmaceutical sales representative. (2) GI bleeding: Code(s): K92.2 - Gastrointestinal hemorrhage, unspecified Status: Acute Assessment and Plan: Hemoccult positive. Was on Xarelto and aspirin. (3) Abdominal pain: Code(s): R10.9 - Unspecified abdominal pain Status: Acute Assessment and Plan: CT abd shows colitis. General surgery consulted. (4) Pacemaker: Code(s): Z95.0 - Presence of cardiac pacemaker Status: Acute Assessment and Plan: Stable. [employer]tronic device. (5) Paroxysmal atrial flutter: Code(s): I48.92 - Unspecified atrial flutter Status: Acute Assessment and Plan: [id number] 5. On Xarelto for this as a MICHELLE on 12/17/17 prior to cardioversion showed left atrial appendage thrombus. May hold Xarelto especially with GI bleed and may need to have surgery. No need for heparin drip. We will reconsider anticoagulation in near future. DVT prophylaxis. (6) CAD (coronary artery disease), autologous vein bypass graft: Code(s): I25.810 - Atherosclerosis of coronary artery bypass graft(s) without angina pectoris Status: Acute Assessment and Plan: Stable. History of Present Illness History of Present Illness Consult date/time: 10/21/20 12:27 Reason for consult: Anticoagulation with Xarelto. Patient is a 85 yr old woman who is my regular cardiology patient who presented to ED at [facility] for weakness, abdominal pain, vomiting/diarrhea and found to be in septic shock. She was transferred to [facility]. 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 She is in ICU. States her abdominal pain has been intermittent for at least 2 months but has become constant in last few days and described as soreness. She also reports nausea/vomiting and diarrhea. States in last month or so she noted more PERRY. Her usual is PERRY walking minimal distance. Denies chest pain, edema, palpitations. BP range 75/49-109/47 mmHg, HR 70 bpm. Sodium 131, Potassium 5.3. Cr 1.7/Cr Cl 20. Hemoccult positive. EKG shows Ventricular paced rhythm. CT abd shows colitis and small volume ascites. Had recent UTI. Currently receiving IV antibiotics and Levophed drip. Cardiovascular Procedures Vending Mechanic:: CV Surgery (4 vessel CABG and MV repair at [facility].) - 1995 Echo/MUGA:: 03/31/20 Echo: EF 50-55%, mild LVH ,diastolic dysfunction (E/e' 23), mild biatrial enlargement, mild-mod TR, mild MR. MICHELLE (EF 55-60%, mod LVH, pacemaker leads, mod LAE, MINERVA thrombus, severe MAC, mild MR, mod TR, small atheroma in posterior aortic root.) - 12/26/2017 Echo (EF 55%, paradoxical septal motion, sigmoid hypertrophy, mod MAC, mean gradient 4.5 mmHg, linear artifact in RV suggestive of pacemaker.) - 10/05/2015 Electrophysiology:: 03/30/20 EKG: AV paced rhythm. EKG (Electronic ventricular pacemaker at 70 bpm.) - 06/18/2018 EKG (Atrial flutter/tachycardia with V. rate 90 bpm; 2 V. paced complexes, LBBB.) - 12/11/2017 EKG (Sinus rhythm, LBBB.) - 11/23/2015 EKG (Sinus rhythm, LBBB.) - 09/06/2014 Stress Tests:: MPI (Lexiscan myoview: Negative for ischemia.) - 01/28/2019 MPI (Lexiscan myoview: Negative for ischemia.) - 12/01/2015 Sleep Study (Negative for PAULINE. She had snoring and AHI did not exceed threshold for PAULINE.) - 04/15/2016 Reason For Visit: Weakness, Fall Review of Systems Review of Systems: All systems reviewed & are unremarkable except as noted in HPI and below Constitutional: Constitutional: Reports as per HPI and Reports fatigue Cardiovascular: Cardiovascular: Reports as per HPI, Denies chest pain, Denies leg edema, Denies lightheadedness and Reports
== END 2020-10-21 08:25 | disposition short-term general hospital (02) ==
PROVIDERS: Emergency Medicine; Emergency Provider Family Medicine; PCP Family Medicine
DX: K52.9 Noninfective gastroenteritis and colitis, unspecified (principal); E87.5 Hyperkalemia; A41.9 Sepsis, unspecified organism; N17.9 Acute kidney failure, unspecified; I48.91 Unspecified atrial fibrillation; Z79.01 Long term (current) use of anticoagulants; E11.9 Type 2 diabetes mellitus without complications; E78.5 Hyperlipidemia, unspecified; I12.9 Hypertensive chronic kidney disease with stage 1 through stage 4 chronic kidney disease, or unspecified chronic kidney disease; R06.02 Shortness of breath
CPT/HCPCS: 36415; 70450; 71045; 74176; 80048; 80053; 81003; 82272; 83605; 83690; 83880; 85025; 85380; 85610; 85730; 86140; 87040; 87045; 87046; 87324; 87426; 87427; 87804; 89055; 93005; 94640; 96361; 96365; 96367; 96375; 99285; 99291; C9803; J0743; J2405; J3370; J7030; J7040

== ENCOUNTER 2020-10-21 14:02 | Inpatient (IN) | payer MEDICARE, SELFPAY ==
[2020-10-21] VITALS (17 sets, daily range): BP systolic 75–136; BP diastolic 43–78; PULSE 70–71; RESP 17–21; TEMP 36.4–36.8; O2SAT 94–99; BMI 21.0
--- NOTE | 2020-10-21 | ECHO_ITS ---
Patient Info Name: Dinorah Thorpe Age: 85 years : 1935 Gender: Female Ht: 64 in Wt: 122 lbs BSA: 1.58 m2 HR: 70 bpm BP: 126 / 52 mmHg Heart Rhythm: Sinus Rhythm Technical Quality: Good Exam Date: 10/21/2020 1:27 PM Exam Location: [facility] Patient Status: Inpatient Admit Date: 10/21/2020 Staff Ordering Physician: Miguelito Mirza MD Test Engine Operator: Sebastien Marcial RDCS, RT Attending Provider: Julieth Bowman DO Exam Type: CA echo dop color flow w con Study Info Indications R65.21 - Severe sepsis with septic shock Complete two-dimensional, color flow and Doppler transthoracic echocardiogram is performed with contrast to opacify the left ventricle and to improve the deliniation of the left ventricle endocardial borders. Contrast/Agitated Saline Contrast/Ag. Saline: Definity Amount: 2.00 ml Administered By: Ash Brito RN Existing IV Access: Yes History/Risk Factors Septic shock. Summary 1. Left ventricular chamber dimension is normal. 2. Definity contrast administered improved wall motion interpretation. 3. Left ventricular systolic function is hyperdynamic, estimated at >70%. 4. There is mildly increased left ventricular wall thickness. 5. The left ventricular diastolic function is abnormal. 6. E/e' 20 is elevated. 7. Linear artifact in right ventricle suggestive of catheter(s), pacemaker lead(s), or ICD lead(s). 8. Left atrial chamber dimension is severely enlarged. 9. Linear artifact in the right atrium suggestive of catheter(s), pacemaker lead(s), or ICD lead(s). 10. The mitral valve has moderately thickened leaflets and moderately calcified annulus. 11. There is mild mitral valve regurgitation. 12. Mild pulmonary hypertension, estimated pulmonary arterial systolic pressure is 41 mmHg. Left Ventricle E/e' 20 is elevated. Definity contrast administered improved wall motion interpretation. Left ventricular chamber dimension is normal. Left ventricular systolic function is hyperdynamic, estimated at >70%. There is mildly increased left ventricular wall thickness. The left ventricular diastolic function is abnormal. Right Ventricle Linear artifact in right ventricle suggestive of catheter(s), pacemaker lead(s), or ICD lead(s). Right ventricular chamber dimension is normal. Right ventricular systolic function is normal. Left Atria Left atrial chamber dimension is severely enlarged. Right Atria Linear artifact in the right atrium suggestive of catheter(s), pacemaker lead(s), or ICD lead(s). Right atrial chamber dimension is normal. Aortic Valve The aortic valve is trileaflet. There is no aortic valve stenosis. There is no aortic valve regurgitation. Pulmonic Valve There is no pulmonic regurgitation. Mitral Valve The mitral valve has moderately thickened leaflets and moderately calcified annulus. There is no mitral valve stenosis. There is mild mitral valve regurgitation. Tricuspid Valve There is no tricuspid valve regurgitation. Mild pulmonary hypertension, estimated pulmonary arterial systolic pressure is 41 mmHg. Pericardium/Pleural There is no pericardial effusion. Inferior Vena Cava Inferior vena cava is not well visualized. Aorta The aortic root size at the sinus of Valsalva is normal. Left Ventricular Outflow Tract Name Value
--- NOTE | ~2020-10-21 | XR_ITS ---
EXAMINATION: XR abdomen obstructive series DATE: 10/29/2020 06:18 INDICATION: Abdominal distention, possible small bowel obstruction TECHNIQUE: Upright and supine views of the abdomen were obtained. COMPARISON: 10/28/2020 FINDINGS: There are persistent dilated loops of small bowel in the midabdomen. The degree of distenti on is better appreciated on yesterday's CT comparison than on the radiographs. A small amount of cont rast from yesterday's CT opacifies the urinary bladder. There is no free intraperitoneal gas. Wall th ickening is noted in the rectum. There is severe lumbar spondylosis and bilateral hip osteoarthritis. Cholecystectomy clips are noted. IMPRESSION: 1. Persistently dilated small bowel, better appreciated on yesterday's CT. 2. Findings in the rectum consistent with colitis. Reviewed, dictated and finalized at location A. SUPERVISOR
--- NOTE | ~2020-10-21 | XR_ITS ---
EXAMINATION: XR abdomen obstructive series DATE: 10/28/2020 05:45 INDICATION: Abdominal distention, ileus TECHNIQUE: Upright and supine views of the abdomen were obtained. COMPARISON: 10/27/2020 FINDINGS: There are persistently dilated small bowel loops in the midabdomen without significant ortiz ge. No free intraperitoneal gas is identified. Gas is seen in the colon and rectum. Cholecystectomy c lips are noted. There is advanced osteoarthritis of the hips. IMPRESSION: 1. Persistently dilated loops of small bowel without significant change, likely ileus. Reviewed, dictated and finalized at location A. C PYTHON DEVELOPER
--- NOTE | ~2020-10-21 | XR_ITS ---
EXAMINATION: XR abdomen NG/feed tube rechec INDICATION: Nasogastric tube advancement TECHNIQUE: Portable AP KUB-NG at 1218 hours COMPARISON: 1207 hours FINDINGS: The nasogastric tube has been advanced. The tip is in the stomach with proximal side port r emains in the distal esophagus. Recommend advancing 2 to 4 cm. Dilated loops of small bowel are uncha nged. IMPRESSION: 1. Nasogastric tube in the stomach with its proximal side port remaining in the distal esophagus. Rec ommend advancing 2 to 4 cm. Reviewed, dictated and finalized at location A. SIGN SERVICER IMPRESSION: 1. Nasogastric tube in the stomach with its proximal side port remaining in the distal esophagus. Recommend advancing 2 to 4 cm.
--- NOTE | ~2020-10-21 | XR_ITS ---
EXAMINATION: XR abdomen NG/feed tube insert INDICATION: Nasogastric tube placement TECHNIQUE: Portable AP KUB-NG at 1208 hours COMPARISON: 10/29/2020 FINDINGS: The tip of the nasogastric tube is in the stomach. The proximal side port is in the distal esophagus. Tube can be safely advanced at least 5 cm. There are multiple dilated loops of small bowel in the left abdomen. Cholecystectomy clips are noted. There are minimal airspace opacities of the mayra ng bases. Moderate osteoarthritis is noted in the hips. No free intraperitoneal gas is identified. IMPRESSION: 1. Nasogastric tube in the stomach with its proximal side port in the distal esophagus. Tube can be s afely advanced of a 5 cm which is recommended. 2. Dilated small bowel with ileus versus obstruction. Reviewed, dictated and finalized at location A. SSORIES REPAIRER IMPRESSION: 1. Nasogastric tube in the stomach with its proximal side port in the distal es ophagus. Tube can be safely advanced of a 5 cm which is recommended. 2. Dilated small bowel with ileus versus obstruction.
--- NOTE | ~2020-10-21 | XR_ITS ---
EXAMINATION: XR abdomen obstructive series DATE: 10/22/2020 05:41 INDICATION: Small bowel obstruction. TECHNIQUE: Upright and supine views of the abdomen were obtained. COMPARISON: CT abdomen and pelvis 10/21/2020 FINDINGS: There are multiple dilated loops of small bowel. The colon is normal in caliber. There is a large volume of stool in the colon. No free to return gas. Surgical clips in the right upper quadran t are likely from cholecystectomy. Median sternotomy wires and mediastinal surgical clips are seen, l ikely from prior coronary artery bypass grafting. There is a left chest wall pacer with leads in the right atrium and right ventricle. There is a left groin catheter. IMPRESSION: 1. Mildly dilated small bowel, consistent with adynamic ileus versus obstruction. 2. Large volume of stool in the colon. Reviewed, dictated and finalized at location A. IMAN HELPER IMPRESSION: 1. Mildly dilated small bowel, consistent with adynamic ileus versus obstructio n. 2. Large volume of stool in the colon.
--- NOTE | ~2020-10-21 | XR_ITS ---
EXAMINATION: XR chest PICC line INDICATION: JACC placement TECHNIQUE: Portable AP chest at 1459 hours COMPARISON: 10/21/2020 FINDINGS: A left internal jugular catheter has been place which ends with its tip in the distal super ior vena cava. There are small pleural effusions. No pneumothorax is identified. There are opacities of the mid and lower lung zones. Cardiomegaly is noted. Median sternotomy wires and mediastinal surgi teagan clips are seen, likely from prior coronary artery bypass grafting. A dual-lead cardiac pacemaker of the left chest wall ends with leads in expected locations. IMPRESSION: 1. JACC placed in expected position. 2. Opacities of the mid and lower lung zones, consistent with atelectasis versus pneumonia. 3. Small pleural effusions. Reviewed, dictated and finalized at location A. ESSOR OF HISTORY IMPRESSION: 1. JACC placed in expected position. 2. Opacities of the mid and lower lung zones, consistent with atelectasis versu s pneumonia. 3. Small pleural effusions.
--- NOTE | ~2020-10-21 | XR_ITS ---
EXAMINATION: XR sm bowel follow through WS EXAM DATE: 10/30/2020 18:12 INDICATION: Small bowel obstruction on CT. TECHNIQUE: Small bowel series was performed with water-soluble solution. Fluoroscopy time of 0.0 min utes with 7 KUB images obtained over 5 hours. FINDINGS: Feeding tube is in position. There is moderately distended stomach. Severely distended jeju num with only single loop of opacified at 45 minutes. At 1 hour and 15 minutes several other small rodney wel loops are opacified, but the remaining 4 hours of imaging demonstrated little progression. No ext ravasation. IMPRESSION: Small bowel obstruction. Reviewed, dictated and finalized at location A. STOCK FARMERS IMPRESSION: Small bowel obstruction.
--- NOTE | ~2020-10-21 | XR_ITS ---
EXAMINATION: XR abdomen obstructive series DATE: 10/23/2020 05:50 INDICATION: Abdominal pain. TECHNIQUE: Upright and supine views of the abdomen on 3 radiographs were obtained. COMPARISON: CT abdomen and pelvis 10/21/2020 FINDINGS: There are no dilated loops of small bowel. There is a moderate volume of stool in the proxi mal colon. There is fold thickening of the descending and sigmoid colon. No free intraperitoneal gas. The nasogastric tube tip is in the stomach. Median sternotomy wires and mediastinal surgical clips a re seen, likely from prior coronary artery bypass grafting. There is a left chest wall pacer with darrius ds in the right atrium and right ventricle. Surgical clips in the right upper quadrant are likely fro m cholecystectomy. IMPRESSION: 1. Fold thickening of the descending and sigmoid colon, consistent with colitis. Reviewed, dictated and finalized at location A. ANGE FLOOR MANAGER IMPRESSION: 1. Fold thickening of the descending and sigmoid colon, consistent with colitis .
--- NOTE | ~2020-10-21 | CT_ITS ---
EXAMINATION: CTA abdomen pelvis EXAM DATE: 10/28/2020 15:39 INDICATION: Colitis, leukocytosis. Ischemic bowel. TECHNIQUE: Spiral CT of the abdomen and pelvis was performed without contrast. Axial, coronal and sag ittal images were reviewed. Maximum intensity projection 3-D reconstructions of the aorta were create d by the technologist on dedicated workstation. The dose-length product (DLP) for this examination w as 808.38 mGy-cm. The exposure was tailored according to patient size (auto mA exposure control), an d iterative reconstruction (ASIR) was used as additional dose reduction technique. Comparison is made to prior examination from 10/21/2020. FINDINGS: There is small bowel obstruction with the transition point indicated on axial image 122/196 , with the ileum distal to this completely collapsed. This has developed compared to CT one week ago. There is enhancing rectosigmoid mucosa with colonic fluid, mild colonic wall edema from the splenic flexure to the rectum. No pneumatosis or portal venous gas. Edema has improved compared to previous e xamination, there the luminal fluid has developed. There is moderate amount of ascending colonic stoo l and gas. Small free pelvic fluid. No free intraperitoneal gas. The mesenteric arteries and visualized branches enhance as would be expected. There is no abdominal a ortic aneurysm or dissection. Moderate scattered arterial sclerotic disease within the aorta and carri c arteries. Portal and splenic veins are patent. Kidneys enhance symmetrically. There is no hydronephrosis. T he uterus is not identified and has likely been surgically resected. The bladder is collapsed with F oley catheter balloon anchor inside. The liver, spleen, adrenal glands and pancreas are unremarkable . There are cholecystectomy clips. There is no retroperitoneal or pelvic lymphadenopathy. Some ge neralized body wall edema. There are small bilateral pleural effusions with adjacent dependent subsegmental atelectasis. Sternot radhika wires. Old right-sided rami fractures. There are no osteoblastic or osteolytic lesions identifie d. IMPRESSION: 1. Interval development of mid ileal small bowel obstruction. 2. Descending and rectosigmoid colonic colitis without CT findings to specifically suggest ischemic etiology, but correlate with lactate levels. 3. Small pleural effusions and associated subsegmental atelectasis. I discussed these findings with ANNALISE Gutierres at 10/28/2020 16:41 PORTABLE IRRIGATION OPERATOR. Reviewed, dictated and finalized at location A. ABLE IRRIGATION OPERATOR IMPRESSION: 1. Interval development of mid ileal small bowel obstruction. 2. Descending and rectosigmoid colonic colitis without CT findings to specific ally suggest ischemic etiology, but correlate with lactate levels. 3. Small pleural effusions and associated subsegmental atelectasis. I discussed these findings with ANNALISE Gutierres at 10/28/2020 16:41 PORTABLE IRRIGATION OPERATOR.
--- NOTE | ~2020-10-21 | XR_ITS ---
EXAMINATION: XR abdomen obstructive series DATE: 10/31/2020 07:35 INDICATION: Small bowel obstruction TECHNIQUE: Upright and supine views of the abdomen were obtained. COMPARISON: 10/30/2020 FINDINGS: The tip of the nasogastric tube is in the stomach. The proximal side port is in the distal esophagus. There are multiple persistently dilated loops of small bowel. Contrast from yesterday's sm all bowel follow-through is not definitely seen within the colon. Cholecystectomy clips are noted. No free intraperitoneal gas is identified. IMPRESSION: 1. Small bowel obstruction. Reviewed, dictated and finalized at location A. OLOGY PROFESSOR IMPRESSION: 1. Small bowel obstruction.
--- NOTE | ~2020-10-21 | XR_ITS ---
EXAMINATION: XR abdomen obstructive series DATE: 10/27/2020 08:22 INDICATION: Abdominal bloating TECHNIQUE: Upright and supine views of the abdomen were obtained. COMPARISON: 10/23/2020 FINDINGS: There are multiple mildly dilated loops of small bowel in the mid abdomen. Gas and stool ar e seen in the colon and the rectum. No free intraperitoneal gas is identified. A left groin catheter has been removed. There are minimal opacities of the visualized lung bases. Cholecystectomy clips are noted. IMPRESSION: 1. Multiple dilated small bowel loops consistent with ileus versus obstruction. Reviewed, dictated and finalized at location A. NSIVE FIRE CONTROL SYSTEMS OPERATOR
--- NOTE | ~2020-10-21 | XR_ITS ---
EXAMINATION: XR abdomen NG/feed tube rechec EXAM DATE: 10/30/2020 12:27 INDICATION: ADVANCE TUBE 2CM TECHNIQUE: Frontal projection(s) of the abdomen for interpretation. Comparison is made to prior exami nation from earlier same date. FINDINGS: The tube tip and side-port project over gastric bubble, adequate. There is moderately diste nded stomach and severely distended jejunum unchanged. Sternotomy wires cardiac pacemaker leads and c holecystectomy clips. Bony degenerative changes. IMPRESSION: 1. Feeding tube in position. 2. Small bowel obstruction. Reviewed, dictated and finalized at location A. MICS AX TECHNICAL ARCHITECT
--- NOTE | 2020-10-21 08:50 | PC.NURSE ---
This patient, Dinorah Thorpe, was admitted to Intensive Care Unit-6. Patient/family oriented to hospital policies and general routines including ID bracelet, bed and alarms, visiting hours, pain management, procedures, bathroom and other care routines, personal items, smoking policy, room service/diet, and visiting hours. Information on how to activate the Rapid Response Team has been discussed. Patient/Family are encouraged to report perceived risks to care and to ask questions if they do not understand what they are told or what they should do.
[2020-10-21] MEDS: SODIUM CHLORIDE 0.9% IV 1,000 ML 125 ML IV CONT (10:02)
[2020-10-21] MEDS: fentaNYL CITRATE INJ (*CRX) 100 MCG/2 ML VIAL 25 MCG IV PUSH (10:40)
--- NOTE | 2020-10-21 11:20 | WPDCNINT ---
Assessment and Plan Assessment and plan (1) Septic shock: Code(s): A41.9 - Sepsis, unspecified organism; R65.21 - Severe sepsis with septic shock Status: Acute Assessment and Plan: Septic shock secondary to colitis Patient has received more than 30 mL/kg IV fluid bolus in the ED Central line placed emergently as patient was still hypotensive Continue IV fluids and started Levophed Monitor lactic acid level Perform NICOM assessment for further fluid responsiveness ECHO (2) Colitis: Code(s): K52.9 - Noninfective gastroenteritis and colitis, unspecified Status: Acute Assessment and Plan: Ischemic versus infectious Patient received vancomycin Primaxin and Flagyl in ED C diff was negative I will continue Primaxin at this time. Low patient states allergy to cephalosporin and penicillin she tolerated Primaxin without any issues Several attempts were made to place NG tube in ED but were unsuccessful patient gagged. Currently she is not nauseous and has not had any vomiting since presentation to ICU. Will monitor at this time but may need to re-attempt NG tube if symptoms reoccur General surgery has been consulted and I spoke to Dr. Cooper who will see the patient (3) Acute renal failure (ARF): Qualifiers: Acute renal failure type: unspecified Qualified Code(s): N17.9 - Acute kidney failure, unspecified Code(s): N17.9 - Acute kidney failure, unspecified Status: Acute Assessment and Plan: Likely prerenal secondary to sepsis Continue IV volume resuscitation Check CK CT abdomen pelvis does not show any hydronephrosis Will consult nephrology if renal function does not improve (4) CKD (chronic kidney disease) stage 3, GFR 30-59 ml/min: Code(s): N18.3 - Chronic kidney disease, stage 3 (moderate) Status: Chronic Assessment and Plan: Baseline creatinine is not clear at this time Will obtain records from [facility] (5) CAD (coronary artery disease), autologous vein bypass graft: Code(s): I25.810 - Atherosclerosis of coronary artery bypass graft(s) without angina pectoris Status: Acute Assessment and Plan: Patient has history of CABG per this time will have to hold aspirin (6) Diabetes type 2, controlled: Code(s): E11.9 - Type 2 diabetes mellitus without complications Status: Acute Assessment and Plan: Sliding scale insulin (7) Chronic anticoagulation: Code(s): Z79.01 - halfway (current) use of anticoagulants Status: Acute Assessment and Plan: Patient is on Xarelto at home. Patient does have history of flutter, congestive heart failure, mitral valve repair but not replacement. She had a MICHELLE which showed left atrial thrombus in 2018. I will repeat echo and consult Cardiology. Will use heparin infusion if needed at this time as patient may need to go to surgery. Will wait until patient is seen by both surgery and Cardiology (8) GI bleeding: Code(s): K92.2 - Gastrointestinal hemorrhage, unspecified Status: Acute Assessment and Plan: Patient reports both bright red blood in her stool and also dark stools. Unable to provide any reasonable history regarding onset and severity she was on aspirin and Xarelto and also p.o. iron hemoglobin was 13.2 this morning and expect it will slightly go down due to hemodilution. Hemoccult was positive IV PPI q.12 hours Hold anticoagulation Monitor hemoglobin Consult GI if hemoglobin drops or any obvious GI bleeding (9) Atrial flutter: Code(s): I48.92 - Unspecified atrial flutter Status: Acute Assessment and Plan: Currently in paced rhythm Additional Plan DVT prophylaxis - SCD Stress ulcer prophylaxis -ppi Nutrition -NPO Code Status -patient requests to be full code. I called the number listed in the chart of patient's son and left a voicemail Total Critical Care Time - 50 minutes Due to a high probability
[2020-10-21] MEDS: NOREPINEPHRINE 8 MG/D5W 250 ML 8 MG/250 ML BAG 9.38 MG IV CONT (11:21)
[2020-10-21 11:29] LABS: Anion Gap 9 mmol/L (8-16); Blood Urea Nitrogen 67 mg/dL (7-17); Calcium 8.7 mg/dL (8.4-10.2); Carbon Dioxide 20 mmol/L (22-30); Chloride 102 mmol/L (98-107); Estimated CRCL calculation 20 ml/min; Estimated Glomerular Filt Rate 29; Glucose 187 mg/dL (65-105); Lactic Acid Reflex 2.6 mmol/L (0.7-2.1); Potassium 5.3 mmol/L (3.4-5.0); Sodium 131 mmol/L (137-145)
--- NOTE | 2020-10-21 11:51 | WPDPROCEDUR ---
Procedures Central Line Placement Right Femoral: Central Line Date: 10/21/20 Central Line Time: 10:00 Discussed w/ the patient/family/POA,the placement of a central venous catheter, including its clinical necessity/indication & associated potential risks, benifits and alternatives.: Yes The patient/family/POA understand(s) and acknowledge(s) the need to proceed with central venous catheter insertion as an important element of the patient's clinical management.: Yes Consent: Consent obtained from patient after explanation of risks, benefits and alternatives Time Out Performed: Yes Patient Position: supine Patient placed on monitor/pulse ox: Yes Provider Prep: mask, sterile gown, sterile gloves, Max. sterile barrier precautions, cap and hand hygiene with conventional soap/water or alcohol based hand rub Central line prep: 2% Chlorhexidine scrub Local anesthesia used: lidocaine 1% Amount of anesthesia used (ml): 5 Sterile US Technique with sterile gel/sterile probe covers: Yes Central line lumen inserted: triple Length (cm): 16 Depth of Insertion (cm): 16 Post Procedure: sutured in place, good blood return, all ports aspirated, flushed, capped, transparent dressing, hemostatic product, antimicrobial product and aseptic technique maintained throughout procedure Patient tolerated procedure: well Complications: none
--- NOTE | 2020-10-21 12:27 | CONS_ITS ---
This report was moved to the correct visit, [id number] on 11/10/20. Original report was signed by Jim Herr DO on 10/21/20 1241. Assessment and Plan Assessment and plan (1) Septic shock: Code(s): A41.9 - Sepsis, unspecified organism; R65.21 - Severe sepsis with septic shock Status: Acute Assessment and Plan: On IV antibiotics and Levophed drip. Management per social welfare research worker. (2) GI bleeding: Code(s): K92.2 - Gastrointestinal hemorrhage, unspecified Status: Acute Assessment and Plan: Hemoccult positive. Was on Xarelto and aspirin. (3) Abdominal pain: Code(s): R10.9 - Unspecified abdominal pain Status: Acute Assessment and Plan: CT abd shows colitis. General surgery consulted. (4) Pacemaker: Code(s): Z95.0 - Presence of cardiac pacemaker Status: Acute Assessment and Plan: Stable. Medtronic device. (5) Paroxysmal atrial flutter: Code(s): I48.92 - Unspecified atrial flutter Status: Acute Assessment and Plan: [id number] 5. On Xarelto for this as a MICHELLE on 12/17/17 prior to cardioversion showed left atrial appendage thrombus. May hold Xarelto especially with GI bleed and may need to have surgery. No need for heparin drip. We will reconsider anticoagulation in near future. DVT prophylaxis. (6) CAD (coronary artery disease), autologous vein bypass graft: Code(s): I25.810 - Atherosclerosis of coronary artery bypass graft(s) without angina pectoris Status: Acute Assessment and Plan: Stable. History of Present Illness History of Present Illness Consult date/time: 10/21/20 12:27 Reason for consult: Anticoagulation with Xarelto. Patient is a 85 yr old woman who is my regular cardiology patient who presented to ED at [facility] for weakness, abdominal pain, vomiting/diarrhea and found to be in septic shock. She was transferred to [facility]. 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 She is in ICU. States her abdominal pain has been intermittent for at least 2 months but has become constant in last few days and described as soreness. She also reports nausea/vomiting and diarrhea. States in last month or so she noted more PERRY. Her usual is PERRY walking minimal distance. Denies chest pain, edema, palpitations. BP range 75/49-109/47 mmHg, HR 70 bpm. Sodium 131, Potassium 5.3. Cr 1.7/Cr Cl 20. Hemoccult positive. EKG shows Ventricular paced rhythm. CT abd shows colitis and small volume ascites. Had recent UTI. Currently receiving IV antibiotics and Levophed drip. Cardiovascular Procedures Plant Operations Manager:: CV Surgery (4 vessel CABG and MV repair at [facility].) - 1995 Echo/MUGA:: 03/31/20 Echo: EF 50-55%, mild LVH ,diastolic dysfunction (E/e' 23), mild biatrial enlargement, mild-mod TR, mild MR. MICHELLE (EF 55-60%, mod LVH, pacemaker leads, mod LAE, MINERVA thrombus, severe MAC, mild MR, mod TR, small atheroma in posterior aortic root.) - 12/26/2017 Echo (EF 55%, paradoxical septal motion, sigmoid hypertrophy, mod MAC, mean gradient 4.5 mmHg, linear artifact in RV suggestive of pacemaker.) - 10/05/2015 Electrophysiology:: 03/30/20 EKG: AV paced rhythm. EKG (Electronic ventricular pacemaker at 70 bpm.) - 06/18/2018 EKG (Atrial flutter/tachycardia with V. rate 90 bpm; 2 V. paced complexes, LBBB.) - 12/11/2017 EKG (Sinus rhythm, LBBB.) - 11/23/2015 EKG (Sinus rhythm, LBBB.) - 09/06/2014 Stress Tests:: MPI (Lexiscan myoview: Negative for ischemia.) - 01/28/2019 MPI (Lexiscan myoview: Negative for ischemia.) - 12/01/2015 Sleep Study (Negative for PAULINE. She had snoring and AHI did not exceed threshold for PAULINE.) - 04/15/2016 Reason For Visit: Weakness, Fall
[2020-10-21] MEDS: SODIUM CHLORIDE 0.9% IV 500 ML IV CONT (12:39)
[2020-10-21 13:10] LABS: Creatine Kinase 414 U/L (30-135)
--- NOTE | 2020-10-21 13:40 | PM.CNGS ---
Assessment and Plan Assessment and plan (1) Colitis: Code(s): K52.9 - Noninfective gastroenteritis and colitis, unspecified Status: Acute Assessment and Plan: Colitis noted on CT scan with wall thickening from the splenic flexure to the sigmoid colon. Labs also revealed significant leukocytosis and lactic acidosis. She has been fluid resuscitated and lactic acid is trending down. She is clinically improving with current treatment. The colitis could be ischemic versus infectious. Stool cultures pending, C. Diff negative. She does have a positive stool occult. During her rectal exam, she had multiple hard formed stool balls that were brown with liquid stool coming around this. I was able to disimpact some of the stool, but I stopped per patient request. CT also showed stool throughout the colon and rectal distention. I will give a Fleets enema this afternoon. Continue current medical treatment with bowel rest, IV antibiotics, IV fluids, and analgesics as needed. NG tube placement was attempted at [facility], but unsuccessful. She has not had any vomiting since being admitted. We would recommend attempting NG tube placement again if patient begins vomiting. At this time, there are no plans for emergent surgical intervention today, but we will need to continue to closely monitor the patient and her response to current treatment. Further plan will depend on how she progresses. (2) Septic shock: Code(s): A41.9 - Sepsis, unspecified organism; R65.21 - Severe sepsis with septic shock Status: Acute Assessment and Plan: Suspect secondary to colitis. Lactic acid trending down. IV fluid resuscitation, received at least 3 L at [facility] and is being assessed for fluid responsiveness by [employer] Cam[employer]. Currently requiring vasopressor support. Blood cx pending. Stool cultures pending, C.Diff negative. Continue IV antibiotics. Monitor labs. (3) Diarrhea: Code(s): R19.7 - Diarrhea, unspecified Status: Chronic Assessment and Plan: Reports of diarrhea, although after reviewing the CT and on exam she appears to have issues with constipation as well. Stool cultures pending. C Diff negative. See plan above. (4) Acute renal failure (ARF): Qualifiers: Acute renal failure type: unspecified Qualified Code(s): N17.9 - Acute kidney failure, unspecified Code(s): N17.9 - Acute kidney failure, unspecified Status: Acute Assessment and Plan: Possibly acute on chronic kidney disease. ARF likely secondary to sepsis. Cr improving with fluid resuscitation. Continue IV fluids and monitor labs. Management per primary team. (5) Chronic anticoagulation: Code(s): Z79.01 - M[facility] (current) use of anticoagulants Status: Acute Assessment and Plan: Takes Xarelto for paroxysmal atrial flutter and also had findings of a left atrial appendage thrombus from MICHELLE on 12/2017 prior to cardioversion. Cardiology has been consulted and appreciate their recommendations. Hold Xarelto for now in case of need for surgery and with concerns of GI bleeding. (6) Pacemaker: Code(s): Z95.0 - Presence of cardiac pacemaker Status: Acute (7) Coronary artery disease: Code(s): I25.10 - Atherosclerotic heart disease of [place] coronary artery without angina pectoris Status: Acute Assessment and Plan: S/p CABG x 4 in 1995. Cardiology following. (8) Paroxysmal atrial flutter: Code(s): I48.92 - Unspecified atrial flutter Status: Acute Assessment and Plan: Currently in a Paced rhythm on my exam. On Xarelto. See plan above. (9) GI bleeding: Code(s): K92.2 - Gastrointestinal hemorrhage, unspecified Status: Acute Assessment and Plan: Reported history of bright red bloody BM x 1 about one week ago and dark stools. Stool occult +. Hemoglobin normal on admission. Continue to monitor H/H. Anticoagulation on hold. PPI initiated. No obvious active acute GI blee
--- NOTE | 2020-10-21 13:48 | PM.IMHP ---
H&P: HPI History of Present Illness Date/Time: 10/21/20 13:48 PT ADMITTED WITH HYPOTENSION AND ABDOMINAL PAIN Chief Complaint: HYPOTENSION AND ABDOMINAL PAIN Narrative: Dinorah Thorpe is a 85 year old female directly admitted from [facility] for higher level of care. Pt complains of abdominal pain, diarrhea and nausea on/ off for one month. She has a history of diabetes, hypothyroidism, history of CAD with CABG has a left-sided pacemaker history of CHF and hyperlipidemia. Pt is on xarelto for atrial flutter and Mitral valve repair. Pt has history of falls and utis in the past. Pt denies urinary symptoms, denies cough, fever or sob. No complaints of chest pain or palpitations. CT scan of abdomen today shows - colitis with Large volume of colonic stool with rectal distention. Pt had FOBT positive on admission. Pt Had CT head in [place] which was negative for bleed. Pt admitted for sepsis, Gi bleed, colitis and acute on chronic kidney disease. Pt seen by ICU MD and will have cardiology and surgery consult. Pt Bp is low on admission pt is presently having central line inserted and will start on vasopressor. Unable to give a good history due to weakness. Pt seen @ 1030AM. 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 CKD (chronic kidney disease) stage 3, GFR 30-59 ml/min Closed head injury Congestive heart failure Contusion of right shoulder Coronary artery disease Diabetes type 2, controlled Diarrhea Dysphagia Fall (~07/22/19) History of esophageal dilatation History of pacemaker History of TIA (transient ischemic attack) and stroke Hyperlipidemia associated with type 2 diabetes mellitus Hypertension associated with stage 3 chronic kidney disease due to type 2 diabetes mellitus Hyponatremia Hypothyroidism Paroxysmal atrial flutter Peripheral sensory neuropathy due to type 2 diabetes mellitus Rectal bleeding Schatzki's ring of distal esophagus Trigger finger, right middle finger Surgical History Surgical History History of appendectomy History of arthroplasty of right knee History of cholecystectomy History of colonoscopy with polypectomy Last colonoscopy in 01/2020 with descending colon polyp biopsied and showing ulcerated tubulovillous adenoma with high-grade dysplasia. History of mitral valve repair 4 vessel CABG and Mitral Valve Repair at [facility] in 1995. History of phacoemulsification of cataract of both eyes with intraocular lens implantation History of total abdominal hysterectomy and bilateral salpingo-oophorectomy S/P CABG (coronary artery bypass graft) 4 vessel CABG and Mitral Valve Repair at [facility] in 1995. Family History Family History Mother Carcinoma of colon Father Family history of coronary artery disease Father Family history of coronary artery disease Other Heart disease Hypertension Social History Social History Smoking status: Never smoker Second hand tobacco smoke exposure: Yes (father) Alcohol intake: unknown Substance use: unknown Substance use type: painkillers Last use: years ago; Additional living arrangements comments: Lives with Gender identity (if verbalized by the patient): Female Spiritual care concerns: No Meds Home Medications and Allergies Home Medications Medication Instructions Recorded Confirmed Type aspirin [Aspir-81] 81 mg PO DAILY 07/22/19 10/21/20 History carvedilol 6.25 mg tablet 6.25 mg PO BID #60 tablet 06/08/20 10/21/20 Rx furosemide 40 mg PO
[2020-10-21] MEDS: PERFLUTREN LIPID MICROSPHERES 1.5 ML VIAL DILUTED TO 10 ML TOTAL VOLUME IV PUSH (14:03)
[2020-10-21] MEDS: SODIUM BICARBONATE 8.4% 150 MEQ in WATER, STERILE FOR INJECTION 950 ML 125 MEQ IV CONT ×2 (14:17→22:56)
[2020-10-21] MEDS: CENTRAL LINE FLUSH 10 ML IV PUSH ×2 (14:18→20:19)
[2020-10-21] MEDS: INSULIN ASPART (*BKC) 100 UNITS/ML SUB-Q (17:35)
[2020-10-21 17:55] LABS: Glucose Point of Care 215 (65-105)
[2020-10-21 18:01] LABS: Lactic Acid Reflex 2.3 mmol/L (0.7-2.1)
[2020-10-21 18:10] LABS: Hematocrit 33.6 % (37.0-47.0); Hemoglobin 11.5 g/dL (12.0-15.0); Mean Corpuscular HGB Conc 34.2 g/dl (32-36); Mean Corpuscular Hemoglobin 32.1 pg (26-34); Mean Corpuscular Volume 93.9 fl (80-100); Platelet Count Result 242 k/mm3 (150-375); Red Blood Count 3.58 M/mm3 (4.2-5.4); Red Cell Distribution Width 12.8 % (11.5-14.5); White Blood Count 15.4 K/mm3 (4.5-10.0)
[2020-10-21 18:23] LABS: Anion Gap 7 mmol/L (8-16); Blood Urea Nitrogen 70 mg/dL (7-17); Calcium 8.2 mg/dL (8.4-10.2); Carbon Dioxide 22 mmol/L (22-30); Chloride 100 mmol/L (98-107); Estimated CRCL calculation 20 ml/min; Estimated Glomerular Filt Rate 29; Glucose 239 mg/dL (65-105); Sodium 129 mmol/L (137-145)
[2020-10-21] MEDS: PANTOPRAZOLE SODIUM IV 40 MG VIAL IV PUSH (20:16)
[2020-10-21 20:48] LABS: Reflex Lactic Acid Yes or No Add Lactic
[2020-10-21 22:24] LABS: Lactic Acid Reflex 2.4 mmol/L (0.7-2.1)
[2020-10-21 22:57] LABS: Glucose Point of Care 196 (65-105)
[2020-10-22] VITALS (18 sets, daily range): BP systolic 90–149; BP diastolic 38–76; PULSE 70; RESP 18–24; TEMP 36.8–37.5; O2SAT 98–100
[2020-10-22 04:31] LABS: Glucose Point of Care 209 (65-105)
[2020-10-22 04:48] LABS: Hematocrit 31.8 % (37.0-47.0); Hemoglobin 11.3 g/dL (12.0-15.0); Mean Corpuscular HGB Conc 35.5 g/dl (32-36); Mean Corpuscular Hemoglobin 31.7 pg (26-34); Mean Corpuscular Volume 89.1 fl (80-100); Mean Platelet Volume 10.7 fl (7.4-10.4); Platelet Count Result 219 k/mm3 (150-375); Red Blood Count 3.57 M/mm3 (4.2-5.4); Red Cell Distribution Width 12.5 % (11.5-14.5); White Blood Count 13.9 K/mm3 (4.5-10.0)
[2020-10-22 05:02] LABS: Potassium 4.2 mmol/L (3.4-5.0)
[2020-10-22] MEDS: INSULIN ASPART (*BKC) 100 UNITS/ML SUB-Q (05:22)
[2020-10-22] MEDS: CENTRAL LINE FLUSH 10 ML IV PUSH ×3 (05:27→20:15)
[2020-10-22 05:28] LABS: Alanine Aminotransferase 62 U/L (4-35); Albumin Level 2.6 g/dL (3.5-5.1); Alkaline Phosphatase 47 U/L (38-126); Anion Gap 8 mmol/L (8-16); Aspartate Amino Transferase 97 U/L (14-36); Bilirubin,Total 0.6 mg/dL (0.2-1.3); Blood Urea Nitrogen 74 mg/dL (7-17); Calcium 7.8 mg/dL (8.4-10.2); Carbon Dioxide 28 mmol/L (22-30); Chloride 93 mmol/L (98-107); Estimated CRCL calculation 20 ml/min; Estimated Glomerular Filt Rate 29; Glucose 217 mg/dL (65-105); Magnesium 1.9 mg/dL (1.6-2.3); Phosphorus 4.9 mg/dL (2.5-4.5); Sodium 129 mmol/L (137-145)
[2020-10-22] MEDS: CALCIUM CHLOR 1,000MG/100ML NS 1,000 MG/100 ML BAG 100 MG IVPB (09:14)
[2020-10-22] MEDS: SODIUM CHLORIDE 0.9% IV 1,000 ML 75 ML IV CONT ×2 (09:14→23:22)
[2020-10-22] MEDS: PANTOPRAZOLE SODIUM IV 40 MG VIAL IV PUSH ×2 (09:27→20:15)
--- NOTE | 2020-10-22 09:40 | WPDINTPN ---
Progress Note: A&P Assessment and Plan (1) Septic shock: Code(s): A41.9 - Sepsis, unspecified organism; R65.21 - Severe sepsis with septic shock Status: Acute Assessment and Plan: Septic shock secondary to colitis Patient has received more than 30 mL/kg IV fluid bolus in the ED Central line placed emergently as patient was still hypotensive Continue IV fluids and started Levophed. Change IV fluids to saline now as metabolic acidosis improved Lactic acid levels have normalized NICOM assessment for further fluid responsiveness was sent yesterday and only showed 11% change ECHO Summary 1. Left ventricular chamber dimension is normal. 2. Definity contrast administered improved wall motion interpretation. 3. Left ventricular systolic function is hyperdynamic, estimated at >70%. 4. There is mildly increased left ventricular wall thickness. 5. The left ventricular diastolic function is abnormal. 6. E/e' 20 is elevated. 7. Linear artifact in right ventricle suggestive of catheter(s), pacemaker lead(s), or ICD lead(s). 8. Left atrial chamber dimension is severely enlarged. 9. Linear artifact in the right atrium suggestive of catheter(s), pacemaker lead(s), or ICD lead(s). 10. The mitral valve has moderately thickened leaflets and moderately calcified annulus. 11. There is mild mitral valve regurgitation. 12. Mild pulmonary hypertension, estimated pulmonary arterial systolic pressure is 41 mmHg. (2) Colitis: Code(s): K52.9 - Noninfective gastroenteritis and colitis, unspecified Status: Inactive Assessment and Plan: Ischemic versus infectious. CT also showed large amount of stool with constipation in the colon Patient received vancomycin Primaxin and Flagyl in ED C diff was negative Continue Primaxin at this time. Low patient states allergy to cephalosporin and penicillin she tolerated Primaxin without any issues Patient seen by general surgery. She received fleets enema yesterday and had a small bowel movement this morning Another enema ordered today. KUB 10/22 IMPRESSION: 1. Mildly dilated small bowel, consistent with adynamic ileus versus obstruction. 2. Large volume of stool in the colon. NG tube to suction (3) Acute renal failure (ARF): Qualifiers: Acute renal failure type: unspecified Qualified Code(s): N17.9 - Acute kidney failure, unspecified Code(s): N17.9 - Acute kidney failure, unspecified Status: Inactive Assessment and Plan: Likely prerenal secondary to sepsis. Baseline creatinine unknown Continue IV volume resuscitation but decrease rate now CT abdomen pelvis does not show any hydronephrosis Creatinine has improved since presentation but has now stabilized around 1.7. A acidosis improved with IV fluid with bicarb. Will change to normal saline (4) CKD (chronic kidney disease) stage 3, GFR 30-59 ml/min: Code(s): N18.3 - Chronic kidney disease, stage 3 (moderate) Status: Chronic Assessment and Plan: Baseline creatinine is not clear at this time Will obtain records from [facility] (5) CAD (coronary artery disease), autologous vein bypass graft: Code(s): I25.810 - Atherosclerosis of coronary artery bypass graft(s) without angina pectoris Status: Acute Assessment and Plan: Patient has history of CABG per this time will have to hold aspirin (6) Diabetes type 2, controlled: Code(s): E11.9 - Type 2 diabetes mellitus without complications Status: Acute Assessment and Plan: Sliding scale insulin (7) Chronic anticoagulation: Code(s): Z79.01 - longterm (current) use of anticoagulants Status: Acute Assessment and Plan: Patient is on Xarelto at home. Patient does have history of flutter, congestive heart failure, mitral valve repair but not replacement. She had a MICHELLE which showed left atrial thrombus in 2018. Cardiology evaluated the patient. Continue to hold an
--- NOTE | 2020-10-22 10:23 | PM.PNCARD ---
Progress Note: A&P Assessment and Plan (1) Septic shock: Code(s): A41.9 - Sepsis, unspecified organism; R65.21 - Severe sepsis with septic shock Status: Acute Assessment and Plan: Management per principal security architect. (2) GI bleeding: Code(s): K92.2 - Gastrointestinal hemorrhage, unspecified Status: Acute (3) Pacemaker: Code(s): Z95.0 - Presence of cardiac pacemaker Status: Acute Assessment and Plan: Stable. (4) CAD (coronary artery disease), autologous vein bypass graft: Code(s): I25.810 - Atherosclerosis of coronary artery bypass graft(s) without angina pectoris Status: Acute (5) Paroxysmal atrial flutter: Code(s): I48.92 - Unspecified atrial flutter Status: Chronic Assessment and Plan: Stable. [id number] 5. On Xarelto for this as a MICHELLE on 12/17/17 prior to cardioversion showed left atrial appendage thrombus. May hold Xarelto especially with GI bleed and may need to have surgery. No need for heparin drip. We will reconsider anticoagulation in near future. DVT prophylaxis. Subjective Date/time seen: 10/22/20 10:23 Patient has abdominal pain and tenderness. No chest pain or sob. Exam Const: General: cooperative, healthy appearing and comfortable Resp: Auscultation: clear to auscultation bilaterally, no crackles, no rales, no rhonchi and no wheezes Cardio: Jugular venous distension: no JVD Rate: regular rate Rhythm: regular rhythm Heart sounds: no murmurs Peripheral pulses: dorsalis pedis present GI: GI Palp: Yes abdominal tenderness and Yes Soft to palpation Neuro: General: oriented to person, oriented to place and oriented to time Extrem: Right lower extremity: no edema Left lower extremity: no edema Objective Data Vital Signs Vital Signs: Vital Signs - 24 hr 10/21/20 11:21 10/21/20 11:26 10/21/20 12:00 Temperature 97.9 F Pulse Rate 70 71 71 Respiratory Rate 19 Blood Pressure 75/49 L 84/43 L 132/52 L Pulse Oximetry 99 10/21/20 12:27 10/21/20 12:55 10/21/20 13:35 Temperature Pulse Rate 70 70 70 Respiratory Rate Blood Pressure 136/53 L 117/71 123/50 L Pulse Oximetry 02/10/21 14:00 10/21/20 14:23 10/21/20 16:00 Temperature 98.2 F Pulse Rate 70 70 70 Respiratory Rate 17 17 Blood Pressure 126/52 L 126/52 L 114/56 L Pulse Oximetry 96 97 10/21/20 16:34 10/21/20 17:22 10/21/20 18:00 Temperature Pulse Rate 70 Respiratory Rate 20 Blood Pressure 132/53 L 104/77 121/50 L Pulse Oximetry 97 10/21/20 20:00 10/21/20 22:00 10/22/20 00:00 Temperature 98.3 F 98.5 F Pulse Rate 70 70 70 Respiratory Rate 21 H 20 20 Blood Pressure 101/53 L 121/52 L 120/48 L Pulse Oximetry 95 96 100 10/22/20 02:00 10/22/20 03:00 10/22/20 04:00 Temperature 98.4 F Pulse Rate 70 70 70 Respiratory Rate 21 H 19 Blood Pressure 129/51 L 127/58 L 127/69 Pulse Oximetry 100 100 10/22/20 06:30 10/22/20 07:41 10/22/20 08:00 Temperature 99.5 F Pulse Rate 70 70 70 Respiratory Rate 18 23 H Blood Pressure 90/76 L 100/38 L 110/47 L Pulse Oximetry 100 98 Intake/Output Intake/Output: Intake & Output 10/19/20 10/20/20 10/21/20 10/22/20 23:59 23:59 23:59 23:59 Intake Total 2300 1100 Output Total 1000 1200 Balance 1300 -100 Meds/Results Medications: Active Medications Generic Name Dose Route Start Last Admin Trade Name Freq PRN Reason Stop Dose Admin Dextrose 12.5 gm 10/21/20 10:46 Dextrose 50% 25 Gm/50 Ml Syringe IV PUSH PRN PRN Hypoglycemia Protocol Fentanyl Citrate 25 mcg 10/21/20 10:22 10/21/20 10:40 Fentanyl Citrate Inj (*Crx) 100 Mcg/2 Ml Vial IV PUSH 25 mcg Q2H PRN Administration Pain Rated 7-10 Glucagon 1 mg 10/21/20 10:46 Glucagon For Inj 1 Mg Vial IM PRN PRN Hypoglycemia Protocol Glucose 15 gm 10/21/20 10:46 Glucose Oral Gel 15 Gm Of Glucse In 37.5 Gm Tube PO PRN PRN Hypoglycemia Prot
--- NOTE | 2020-10-22 11:32 | PM.PNGS ---
Progress Note: A&P Assessment and Plan (1) Colitis: Code(s): K52.9 - Noninfective gastroenteritis and colitis, unspecified Status: Inactive Assessment and Plan: Colitis noted on CT scan with wall thickening from the splenic flexure to the sigmoid colon. Lactic acidosis on admission, improving. Lactic acid this am was 2.0. WBC improving. Infectious vs. ischemic etiology. After Dr. Cooper reviewed the patient's imaging with the Radiologist and with her response to current treatment, it seems more likely that this is infectious in nature. Continue IV antibiotics. Stool cultures pending. Spoke with the Intensivisit who will send off another C.Diff. Continue NG tube decompression and bowel rest. Patient vomited overnight and abdominal films this morning showed mildly dilated small bowel and large amount of colonic stool. Will give another fleets enema this afternoon. May consider stimulating her bowels more tomorrow depending on how she progresses. Repeat abdominal films tomorrow morning. No plans for surgical intervention at this time. (2) Septic shock: Code(s): A41.9 - Sepsis, unspecified organism; R65.21 - Severe sepsis with septic shock Status: Acute Assessment and Plan: Suspect secondary to colitis. Lactic acid continues to trend down. WBC trending down. Continue IV fluids and IV antibiotics. Still requiring minimal vasopressor support, wean as tolerated. Blood cx pending. Stool cultures pending, C.Diff from [place] negative but resulted quickly. Will repeat C.Diff here today. Continue IV antibiotics. Monitor labs. (3) Diarrhea: Code(s): R19.7 - Diarrhea, unspecified Status: Chronic Assessment and Plan: Reports of diarrhea, although after reviewing the CT and on exam she appears to have issues with constipation as well. I was able to disimpact some more of the solid formed stool balls today on exam. Will give another fleets enema tonight. Stool cultures pending. See plan above. (4) Acute renal failure (ARF): Qualifiers: Acute renal failure type: unspecified Qualified Code(s): N17.9 - Acute kidney failure, unspecified Code(s): N17.9 - Acute kidney failure, unspecified Status: Inactive Assessment and Plan: Possibly acute on chronic kidney disease. ARF likely secondary to sepsis. Cr continues to improve. Management per primary team. Monitor labs. (5) Chronic anticoagulation: Code(s): Z79.01 - half-way (current) use of anticoagulants Status: Acute Assessment and Plan: Takes Xarelto for paroxysmal atrial flutter and also had findings of a left atrial appendage thrombus from MICHELLE on 12/2017 prior to cardioversion. Cardiology following. Hold Xarelto for now, okay with Cardiology. They do not feel a need for Heparin gtt at this time. If this changes, it is okay from a surgical standpoint to use a Heparin gtt for anticoagulation. (6) Paroxysmal atrial flutter: Code(s): I48.92 - Unspecified atrial flutter Status: Chronic Assessment and Plan: Currently in a Paced rhythm on my exam. On Xarelto. See plan above. (7) GI bleeding: Code(s): K92.2 - Gastrointestinal hemorrhage, unspecified Status: Acute Assessment and Plan: Stool occult +. H/H remains stable. No hematochezia or melena during her rectal exam today or yesterday. No significant acute GI bleed. Continue to monitor H/H. Anticoagulation on hold. On PPI Q12H. Additional Plan Discussed the patient's case and plan of care with Dr. Cooper. Subjective Subjective Date/Time Seen: 10/22/20 11:00 Patient reports: no new complaints, flatus, bowel movement, diarrhea and vomiting Interval history: Patient seen this morning. Reports still having lower abdominal pain. Reports vomiting overnight and subsequently having the NG tube placed. She cannot tell me if her pain has improved or if she has been moving her bowels. There is documentation of 3 BMs over
[2020-10-22] MEDS: ALBUMIN HUMAN 25% 25 GM/100 ML 100 ML IVPB ×3 (13:23→23:22)
[2020-10-22 13:42] LABS: Glucose Point of Care 195 (65-105)
[2020-10-22 17:16] LABS: Glucose Point of Care 168 (65-105)
[2020-10-22 22:29] LABS: Glucose Point of Care 179 (65-105)
[2020-10-23] VITALS (11 sets, daily range): BP systolic 127–147; BP diastolic 43–68; PULSE 70–84; RESP 18–24; TEMP 36.2–37; O2SAT 92–100; BMI 21.2
[2020-10-23] MEDS: CENTRAL LINE FLUSH 10 ML IV PUSH ×2 (05:22→13:50)
[2020-10-23] MEDS: ALBUMIN HUMAN 25% 25 GM/100 ML 100 ML IVPB (05:24)
[2020-10-23 05:31] LABS: Glucose Point of Care 182 (65-105)
[2020-10-23 05:35] LABS: Hematocrit 25.7 % (37.0-47.0); Hemoglobin 8.9 g/dL (12.0-15.0); Mean Corpuscular HGB Conc 34.6 g/dl (32-36); Mean Corpuscular Hemoglobin 31.6 pg (26-34); Mean Corpuscular Volume 91.1 fl (80-100); Mean Platelet Volume 10.6 fl (7.4-10.4); Platelet Count Result 124 k/mm3 (150-375); Red Blood Count 2.82 M/mm3 (4.2-5.4); Red Cell Distribution Width 12.8 % (11.5-14.5); White Blood Count 9.6 K/mm3 (4.5-10.0)
[2020-10-23 05:49] LABS: Alanine Aminotransferase 45 U/L (4-35); Albumin Level 3.1 g/dL (3.5-5.1); Alkaline Phosphatase 43 U/L (38-126); Anion Gap 8 mmol/L (8-16); Aspartate Amino Transferase 76 U/L (14-36); Bilirubin,Total 0.6 mg/dL (0.2-1.3); Blood Urea Nitrogen 61 mg/dL (7-17); Calcium 8.2 mg/dL (8.4-10.2); Carbon Dioxide 31 mmol/L (22-30); Chloride 99 mmol/L (98-107); Estimated CRCL calculation 24 ml/min; Estimated Glomerular Filt Rate 36; Glucose 191 mg/dL (65-105); Magnesium 1.7 mg/dL (1.6-2.3); Phosphorus 4.8 mg/dL (2.5-4.5); Potassium 2.8 mmol/L (3.4-5.0); Sodium 138 mmol/L (137-145)
--- NOTE | 2020-10-23 08:01 | PM.PNCARD ---
Progress Note: A&P Assessment and Plan (1) Septic shock: Code(s): A41.9 - Sepsis, unspecified organism; R65.21 - Severe sepsis with septic shock Status: Acute Assessment and Plan: On Levophed drip. Management per millinery worker. (2) GI bleeding: Code(s): K92.2 - Gastrointestinal hemorrhage, unspecified Status: Acute Assessment and Plan: Worsening anemia. Monitor levels. Hypokalemia. KCl replacement. Managed per millinery worker. (3) Pacemaker: Code(s): Z95.0 - Presence of cardiac pacemaker Status: Acute Assessment and Plan: Stable. (4) CAD (coronary artery disease), autologous vein bypass graft: Code(s): I25.810 - Atherosclerosis of coronary artery bypass graft(s) without angina pectoris Status: Acute (5) Paroxysmal atrial flutter: Code(s): I48.92 - Unspecified atrial flutter Status: Chronic Assessment and Plan: Stable. [id number] 5. On Xarelto for this as a MICHELLE on 12/17/17 prior to cardioversion showed left atrial appendage thrombus. May hold Xarelto especially with GI bleed and may need to have surgery. No need for heparin drip. We will reconsider anticoagulation in near future. DVT prophylaxis. Will sign off and please call with questions or change in clinical status. (6) Diastolic dysfunction: Code(s): I51.89 - Other ill-defined heart diseases Status: Acute Assessment and Plan: Stable. May give IVF due to septic shock but be cautious regarding fluid overload as she was on Furosemide 40 mg PO daily as home medication. Subjective Date/time seen: 10/23/20 08:01 Patient reports abdominal pain. No chest pain or sob. Exam Const: General: cooperative, healthy appearing and comfortable Resp: Auscultation: clear to auscultation bilaterally, no crackles, no rales, no rhonchi and no wheezes Cardio: Jugular venous distension: no JVD Rate: regular rate Rhythm: regular rhythm Heart sounds: no murmurs Peripheral pulses: dorsalis pedis present GI: GI Palp: Yes abdominal tenderness and Yes Soft to palpation Neuro: General: oriented to person, oriented to place and oriented to time Extrem: Right lower extremity: no edema Left lower extremity: no edema Objective Data Vital Signs Vital Signs: Vital Signs - 24 hr 10/22/20 10:00 10/22/20 11:00 10/22/20 12:00 Temperature 98.6 F Pulse Rate 70 70 Respiratory Rate 18 21 H Blood Pressure 134/45 L 126/59 L 130/60 Pulse Oximetry 100 99 10/22/20 13:38 10/22/20 14:00 10/22/20 16:00 Temperature Pulse Rate 70 70 70 Respiratory Rate 22 H 23 H Blood Pressure 130/60 136/57 L 138/50 L Pulse Oximetry 98 98 10/22/20 16:01 10/22/20 16:30 10/22/20 18:00 Temperature 99.4 F Pulse Rate 70 70 Respiratory Rate 23 H Blood Pressure 145/52 H 149/52 H Pulse Oximetry 98 10/22/20 20:00 10/22/20 22:00 10/23/20 00:00 Temperature 98.3 F 98.4 F Pulse Rate 70 70 70 Respiratory Rate 22 H 24 H 20 Blood Pressure 138/53 L 146/52 H 147/48 H Pulse Oximetry 99 98 100 10/23/20 02:00 10/23/20 04:00 10/23/20 06:00 Temperature 98.1 F Pulse Rate 70 70 70 Respiratory Rate 24 H 19 18 Blood Pressure 142/44 H 129/43 L 127/46 L Pulse Oximetry 95 92 92 Intake/Output Intake/Output: Intake & Output 10/20/20 10/21/20 10/22/20 10/23/20 23:59 23:59 23:59 23:59 Intake Total 2300 2700 200 Output Total 1000 1900 1125 Balance 1300 800 -925 Meds/Results Medications: Active Medications Generic Name Dose Route Start Last Admin Trade Name Freq PRN Reason Stop Dose Admin Dextrose 12.5 gm 10/21/20 10:46 Dextrose 50% 25 Gm/50 Ml Syringe IV PUSH PRN PRN Hypoglycemia Protocol Fentanyl Citrate 25 mcg 10/21/20 10:22 10/21/20 10:40 Fentanyl Citrate Inj (*Crx) 100 Mcg/2 Ml Vial IV PUSH 25 mcg Q2H PRN Administration Pain Rated 7-10 Glucagon 1 mg 10/21/20 10:46 Glucagon For Inj 1 Mg Vial IM PRN PRN Hypogly
[2020-10-23] MEDS: MAGNESIUM SULF 2 GM/WATER 50ML 2 GM/50 ML BAG IVPB (09:30)
[2020-10-23] MEDS: PANTOPRAZOLE SODIUM IV 40 MG VIAL IV PUSH ×2 (09:30→20:26)
--- NOTE | 2020-10-23 10:40 | PM.PNGS ---
Progress Note: A&P Assessment and Plan (1) Colitis: Code(s): K52.9 - Noninfective gastroenteritis and colitis, unspecified Status: Inactive Assessment and Plan: Colitis noted on CT scan on day of admission with wall thickening from the splenic flexure to the sigmoid colon. Lactic acidosis on admission, improving. Lactic acid this am was 2.0. WBC improving now down to normal. Infectious vs. ischemic etiology. After Dr. Cooper reviewed the patient's imaging with the Radiologist and with her response to current treatment, it seems more likely that this is infectious in nature. Continue IV antibiotics. Stool cultures pending. Spoke with the Intensivisit who will send off another C.Diff(still not yet sent). Continue NG tube decompression and bowel rest for now, but today's plain film shows no dilated small bowel so will give the patient 1 dose of milk of magnesia down the NG tube and clamp it for 2 hrs. and then reconnect it to suction for 1-2 hours. If less than 300 cc out for those hours will probably remove it and let her start clear liquids. Also will give other fleets enema to try to clean the colon out No plans for surgical intervention at this time. okay with surgical team to go out to the floor on telemetry today. (2) Septic shock: Code(s): A41.9 - Sepsis, unspecified organism; R65.21 - Severe sepsis with septic shock Status: Acute Assessment and Plan: Suspect secondary to colitis. Blood cultures negative so far. Stool cultures negative for Shigella toxin but still pending for other studies. Lactic acid not checked today but was down to normal yesterday. WBC trending down. Continue IV fluids and IV antibiotics. Now off vasopressor support. Blood cx pending. Stool cultures pending, C.Diff from [place] negative but resulted quickly. Will repeat C.Diff here today if sample an be obtained. Continue IV antibiotics. Monitor labs. (3) Diarrhea: Code(s): R19.7 - Diarrhea, unspecified Status: Chronic Assessment and Plan: Reports of diarrhea, although after reviewing the CT and on exam she appears to have issues with constipation as well. Patient has had only 1 spontaneous bowel movements since entering the hospital and that was early this morning. Will give another fleets enema today. Stool cultures pending. See plan above. (4) Acute renal failure (ARF): Qualifiers: Acute renal failure type: unspecified Qualified Code(s): N17.9 - Acute kidney failure, unspecified Code(s): N17.9 - Acute kidney failure, unspecified Status: Inactive Assessment and Plan: Possibly acute on chronic kidney disease. ARF likely secondary to sepsis. Cr continues to improve. Management per primary team. Monitor labs. 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 Cardiology following. Hold Xarelto for now, okay with Cardiology. They do not feel a need for Heparin gtt at this time. If this changes, it is okay from a surgical standpoint to use a Heparin gtt for anticoagulation. (6) Paroxysmal atrial flutter: Code(s): I48.92 - Unspecified atrial flutter Status: Chronic Assessment and Plan: Currently in a Paced rhythm. See plan above. (7) GI bleeding: Code(s): K92.2 - Gastrointestinal hemorrhage, unspecified Status: Acute Assessment and Plan: Stool occult +. H/H remains stable. No hematochezia or melena reported by nurses with the enemas or her other stool today or yesterday. No significant acute GI bleed. Continue to monitor H/H. ( this went down to around 8.9 today so repeat NH nature in 12 hours). Anticoagulation on hold. On PPI Q12H. Additional Plan Discussed the patient's case and plan of care wi
[2020-10-23 11:42] LABS: Glucose Point of Care 230 (65-105)
--- NOTE | 2020-10-23 12:18 | WPDINTPN ---
Progress Note: A&P Assessment and Plan (1) Septic shock: Code(s): A41.9 - Sepsis, unspecified organism; R65.21 - Severe sepsis with septic shock Status: Acute Assessment and Plan: Septic shock secondary to colitis Resolved now Patient has received more than 30 mL/kg IV fluid bolus in the ED Central line was placed emergently as patient was still hypotensive She is off of Levophed Lactic acid levels have normalized Will decrease IV fluids further now but continue as patient is still NPO ECHO Summary 1. Left ventricular chamber dimension is normal. 2. Definity contrast administered improved wall motion interpretation. 3. Left ventricular systolic function is hyperdynamic, estimated at >70%. 4. There is mildly increased left ventricular wall thickness. 5. The left ventricular diastolic function is abnormal. 6. E/e' 20 is elevated. 7. Linear artifact in right ventricle suggestive of catheter(s), pacemaker lead(s), or ICD lead(s). 8. Left atrial chamber dimension is severely enlarged. 9. Linear artifact in the right atrium suggestive of catheter(s), pacemaker lead(s), or ICD lead(s). 10. The mitral valve has moderately thickened leaflets and moderately calcified annulus. 11. There is mild mitral valve regurgitation. 12. Mild pulmonary hypertension, estimated pulmonary arterial systolic pressure is 41 mmHg. (2) Colitis: Code(s): K52.9 - Noninfective gastroenteritis and colitis, unspecified Status: Inactive Assessment and Plan: Ischemic versus infectious. CT also showed large amount of stool with constipation in the colon Patient received vancomycin Primaxin and Flagyl in ED C diff was negative at the outside hospital ED. Continue Primaxin at this time. Low patient states allergy to cephalosporin and penicillin she tolerated Primaxin without any issues Patient seen by general surgery. She received fleets enema yesterday and had abowel movement this morning. No nausea vomiting Lactic acid has normalized. Patient is off of Levophed Discussed with Dr. Cooper. He reviewed KUB done this morning. Plans to give another enema today and also give milk of Mag through NG tube KUB 10/23 IMPRESSION: 1. Fold thickening of the descending and sigmoid colon, consistent with colitis. NG tube to suction (3) Acute renal failure (ARF): Qualifiers: Acute renal failure type: unspecified Qualified Code(s): N17.9 - Acute kidney failure, unspecified Code(s): N17.9 - Acute kidney failure, unspecified Status: Inactive Assessment and Plan: Likely prerenal secondary to sepsis. Baseline creatinine unknown Creatinine is improving with IV fluids And is down to 1.4 CT abdomen pelvis does not show any hydronephrosis A acidosis improved with IV fluid with bicarb. Patient is now on normal saline Replace potassium and magnesium Add potassium to IV fluids (4) CKD (chronic kidney disease) stage 3, GFR 30-59 ml/min: Code(s): N18.3 - Chronic kidney disease, stage 3 (moderate) Status: Chronic Assessment and Plan: Baseline creatinine is not clear at this time (5) CAD (coronary artery disease), autologous vein bypass graft: Code(s): I25.810 - Atherosclerosis of coronary artery bypass graft(s) without angina pectoris Status: Acute Assessment and Plan: Patient has history of CABG per this time will have to hold aspirin due to GI bleed (6) Diabetes type 2, controlled: Code(s): E11.9 - Type 2 diabetes mellitus without complications Status: Acute Assessment and Plan: Sliding scale insulin (7) Chronic anticoagulation: Code(s): Z79.01 - skilled nursing (current) use of anticoagulants Status: Acute Assessment and Plan: Patient is on Xarelto at home. Patient does have history of flutter, congestive heart failure, mitral valve repair but not replacement. She had a MICHELLE which showed left atrial thrombus in 2018. Cardio
[2020-10-23] MEDS: KCL 20MEQ/0.9% SOD CHL 1,000 ML 50 ML IV CONT (13:49)
[2020-10-23] MEDS: KCL 20 MEQ/SW 100 ML 100 ML 50 MEQ IVPB (13:49)
[2020-10-23] MEDS: MAGNESIUM HYDROXIDE SUSP 30 ML UDC FEED TUBE (13:50)
[2020-10-23] MEDS: INSULIN ASPART (*BKC) 100 UNITS/ML SUB-Q (13:57)
--- NOTE | 2020-10-23 15:28 | PM.IMPN ---
Progress Note: A&P Assessment and Plan (1) Paroxysmal atrial flutter: Code(s): I48.92 - Unspecified atrial flutter Status: Chronic Assessment and Plan: Pt seen by cardiology (2) Coronary artery disease: Code(s): I25.10 - Atherosclerotic heart disease of [place] coronary artery without angina pectoris Status: Chronic Assessment and Plan: Pt seen by cardiology, chronic and stable (3) GI bleeding: Code(s): K92.2 - Gastrointestinal hemorrhage, unspecified Status: Resolved Assessment and Plan: Surgery consulted (4) Septic shock: Code(s): A41.9 - Sepsis, unspecified organism; R65.21 - Severe sepsis with septic shock Status: Resolved Assessment and Plan: Bp corrected. seen by iCU MD, off vasopressors ok to transfer out of ICU (5) Colitis: Code(s): K52.9 - Noninfective gastroenteritis and colitis, unspecified Status: Inactive Assessment and Plan: Pt on imipenem/ cilastatin, surgery consulted, lactic level better, xay shows colitis. pt is npo with fluids and NG tube, surgery and icu following, pt is stable for transfer out of ICU (6) Acute renal failure (ARF): Qualifiers: Acute renal failure type: unspecified Qualified Code(s): N17.9 - Acute kidney failure, unspecified Code(s): N17.9 - Acute kidney failure, unspecified Status: Inactive Assessment and Plan: Pt has history of CKD stage 3, creat is 1.4 (7) Hypokalemia: Code(s): E87.6 - Hypokalemia Status: Acute Assessment and Plan: Correct with potassium rider and mg rider. consult dietican Subjective Date/time seen: 10/23/20 15:28 Interval history: 85 year old female directly admitted from [facility] for higher level of care. Pt complains of abdominal pain, diarrhea and nausea on/ off for one month. She has a history of diabetes, hypothyroidism, history of CAD with CABG has a left-sided pacemaker history of CHF and hyperlipidemia. On admission septic shock secondary to gi bleed colitis or isc hemic colitis was considered, pt still having abdominal tenderness. sepsis has improved, pt can be transferred to medical floor. Seen by surgery and ICU and cardiology, abdominal pain getting better Review of Systems Review of Systems: All systems reviewed & are unremarkable except as noted in HPI and below Exam Const: General: other (pt has NG tube in situ ) Neck: Neck: supple Chest: Chest palpation & inspection: normal inspection of the chest Resp: Effort & Inspection: normal respiratory effort Auscultation: clear to auscultation bilaterally Cardio: Jugular venous distension: no JVD Palpation: other (medtronic in situ ) Rhythm: regular rhythm Heart sounds: S1 normal heart sound present and S2 normal heart sound present GI: Inspection: distended GI Palp: Yes abdominal tenderness : General: Yes no CVA tenderness Back/Spine/Pelvis: Back: no CVA tenderness Skin: General skin exam: dry skin, pallor and other Neuro: Cranial nerves: Yes CN's II-XII intact bilaterally and Yes Equal, round and reactive pupils present Cognition (Neuro): normal cognition Speech: normal speech Motor exam (neuro): 5/5 motor strength present throughout Extrem: General: other (Generalised weakness ) Psych: Appearance: grossly normal Mental Status: mental status grossly normal Objective Data Vital Signs Vital Signs: Vital Signs - 24 hr 10/22/20 16:00 10/22/20 16:01 10/22/20 16:30 Temperature 37.4 C Pulse Rate 70 70 Respiratory Rate 23 H Blood Pressure 138/50 L 145/52 H Pulse Oximetry 98 10/22/20 18:00 10/22/20 20:00 10/22/20 22:00 Temperature 36.8 C Pulse Rate 70 70 70 Respiratory Rate 23 H 22 H 24 H Blood Pressure 149/52 H 138/53 L 146/52 H Pulse Oximetry 98 99 98 10/23/20 00:00 10/23/20 02:00 10/23/20 04:00 Temperature 36.9 C 36.7 C Pulse Rate 70 70 70 Respiratory Rate 20 24 H 19 Blood Pressur
[2020-10-23 18:18] LABS: Glucose Point of Care 170 (65-105)
[2020-10-23 18:21] LABS: Hematocrit 27.8 % (37.0-47.0); Hemoglobin 9.5 g/dL (12.0-15.0)
[2020-10-23 18:46] LABS: Anion Gap 7 mmol/L (8-16); Blood Urea Nitrogen 48 mg/dL (7-17); Calcium 8.5 mg/dL (8.4-10.2); Carbon Dioxide 31 mmol/L (22-30); Chloride 102 mmol/L (98-107); Estimated CRCL calculation 27 ml/min; Estimated Glomerular Filt Rate 43; Glucose 178 mg/dL (65-105); Magnesium 2.1 mg/dL (1.6-2.3); Potassium 3.5 mmol/L (3.4-5.0); Sodium 140 mmol/L (137-145)
[2020-10-23 23:38] LABS: Glucose Point of Care 158 (65-105)
[2020-10-24] VITALS (11 sets, daily range): BP systolic 102–142; BP diastolic 51–61; PULSE 64–112; RESP 16–18; TEMP 36.1–36.3; O2SAT 90–97
--- NOTE | 2020-10-24 00:56 | ADMGEN ---
This patient, Dinorah Thorpe, was admitted to 3 [facility] Surg Room 316-01. Patient/family oriented to hospital policies and general routines including ID bracelet, bed and alarms, visiting hours, pain management, procedures, bathroom and other care routines, personal items, smoking policy, room service/diet, and visiting hours. Information on how to activate the Rapid Response Team has been discussed. Patient/Family are encouraged to report perceived risks to care and to ask questions if they do not understand what they are told or what they should do.
--- NOTE | 2020-10-24 05:00 | PC.NURSE ---
This patient, Dinorah Thorpe, was transferred to [facility] on 10/23/20 at 2350. Personal belongings sent with patient. Report given to Jessica FRANCO. Appropriate documentation sent with patient.
[2020-10-24 06:33] LABS: Hematocrit 29.2 % (37.0-47.0); Hemoglobin 9.9 g/dL (12.0-15.0); Mean Corpuscular HGB Conc 33.9 g/dl (32-36); Mean Corpuscular Hemoglobin 31.2 pg (26-34); Mean Corpuscular Volume 92.1 fl (80-100); Platelet Count Result 146 k/mm3 (150-375); Red Blood Count 3.17 M/mm3 (4.2-5.4); White Blood Count 11.3 K/mm3 (4.5-10.0)
[2020-10-24 06:48] LABS: Alanine Aminotransferase 61 U/L (4-35); Albumin Level 3.1 g/dL (3.5-5.1); Alkaline Phosphatase 60 U/L (38-126); Anion Gap 6 mmol/L (8-16); Aspartate Amino Transferase 106 U/L (14-36); Bilirubin,Total 0.7 mg/dL (0.2-1.3); Blood Urea Nitrogen 46 mg/dL (7-17); Calcium 8.7 mg/dL (8.4-10.2); Carbon Dioxide 30 mmol/L (22-30); Chloride 106 mmol/L (98-107); Estimated CRCL calculation 36 ml/min; Estimated Glomerular Filt Rate 60; Glucose 181 mg/dL (65-105); Magnesium 1.8 mg/dL (1.6-2.3); Phosphorus 2.5 mg/dL (2.5-4.5); Potassium 3.1 mmol/L (3.4-5.0); Sodium 142 mmol/L (137-145)
--- NOTE | 2020-10-24 08:42 | PM.PNGS ---
Progress Note: A&P Assessment and Plan (1) Acute colitis: Code(s): K52.9 - Noninfective gastroenteritis and colitis, unspecified Status: Acute Assessment and Plan: bowel function returning. Will DC NG tube and start clear liquids. Ambulate today with assistance. Continue to monitor closely with daily labs and clinical evaluation. (2) Hypokalemia: Code(s): E87.6 - Hypokalemia Status: Acute Assessment and Plan: Will supplement orally. Subjective Subjective Date/Time Seen: 10/24/20 08:42 Patient reports: feels better, pain is less, bowel movement and afebrile Review of Systems Review of Systems: All systems reviewed & are unremarkable except as noted in HPI and below Constitutional: Constitutional: Denies chills, Denies fever(s), Denies headache(s) and Reports lethargy Cardiovascular: Cardiovascular: Denies chest pain and Denies dyspnea Respiratory: Respiratory: Denies cough and Denies dyspnea Gastrointestinal: Gastrointestinal: Reports as per HPI, Reports abdominal pain ( Improved, devulcanizer tender to touch), Denies diarrhea and Denies nausea Neurologic: Denies confusion and Denies headache(s) Exam Const: General: comfortable and no acute distress; No confusion Orientation/consciousness: patient oriented x3 and No confusion GI: Inspection: non-distended GI Palp: Yes Soft to palpation, Yes Tenderness to palpation present (GI) ( generalized, no focal findings), No Guarding due to palpation present (GI), No Hernia present, No Palpable mass present and No Rebound tenderness present Auscultation: Hypoactive bowel sounds present Neuro: General: patient oriented x3, no focal motor deficits and No confusion Extrem: General: no calf tenderness and no edema Psych: Affect: normal affect Insight: Good insight present (Psych) Judgement: Good judgement present (Psych) Objective Data Vital Signs Vital Signs: Vital Signs - 24 hr 10/23/20 10:00 10/23/20 12:00 10/23/20 14:00 Temperature 36.2 C L Pulse Rate 70 70 70 Respiratory Rate 18 18 20 Blood Pressure 140/52 L 143/59 H 133/68 Pulse Oximetry 95 94 100 10/23/20 16:00 10/23/20 18:00 10/23/20 20:00 Temperature 36.8 C 37.0 C Pulse Rate 70 73 84 Respiratory Rate 22 H 18 Blood Pressure 147/57 H 147/53 H Pulse Oximetry 95 99 10/24/20 00:00 10/24/20 00:15 10/24/20 06:00 Temperature 36.1 C L 36.2 C L Pulse Rate 70 74 98 Respiratory Rate 18 18 Blood Pressure 142/54 H 126/51 L Pulse Oximetry 97 90 Intake/Output Intake/Output: Intake & Output 10/21/20 10/22/20 10/23/20 10/24/20 23:59 23:59 23:59 23:59 Intake Total 2300 2700 900 200 Output Total 1000 1900 2125 650 Balance 1300 800 1221 -450 Meds/Results Medications: Active Medications Generic Name Dose Route Start Last Admin Trade Name Freq PRN Reason Stop Dose Admin Amitriptyline HCl 50 mg 10/24/20 21:00 Amitriptyline Hcl 25 Mg Tablet PO HS ARTHUR Carvedilol 6.25 mg 10/24/20 09:00 Carvedilol 6.25 Mg Tablet PO BID ARTHUR Dextrose 12.5 gm 10/21/20 10:46 Dextrose 50% 25 Gm/50 Ml Syringe IV PUSH PRN PRN Hypoglycemia Protocol Glucagon 1 mg 10/21/20 10:46 Glucagon For Inj 1 Mg Vial IM PRN PRN Hypoglycemia Protocol Glucose 15 gm 10/21/20 10:46 Glucose Oral Gel 15 Gm Of Glucse In 37.5 Gm Tube PO PRN PRN Hypoglycemia Protocol Imipenem/Cilastatin Sodium 250 mg in 100 mls @ 300 mls/hr 10/21/20 11:00 10/24/20 07:04 Primaxin 250 Mg/D5w 100 Ml IVPB Infused Q6HR ARTHUR Infusion Dextrose 1,000 mls @ 100 mls/hr 10/21/20 10:46 Dextrose 5% 1,000 Ml IVPB PRN PRN Hypoglycemia Protocol Insulin Aspart 3 - 6 units 10/23/20 18:00 10/24/20 06:50 Insulin Aspart (*Bkc) 100 Units/Ml SUB-Q Not Given Q6H [facility] Protocol Non-Formulary Medication 112 mcg 10/24/20 09:00 Levothyroxine PO 11/23/20 09:01 DAILY ARTHUR Pantoprazole Sodium
[2020-10-24] MEDS: POTASSIUM CHLORIDE 20 MEQ TABLET PO (09:21)
[2020-10-24] MEDS: LEVOTHYROXINE SODIUM 112 MCG TABLET PO (09:22)
[2020-10-24] MEDS: PANTOPRAZOLE 40 MG TABLET PO ×2 (09:22→20:11)
[2020-10-24] MEDS: carvediloL 6.25 MG TABLET PO ×2 (09:22→17:35)
[2020-10-24 12:11] LABS: Glucose Point of Care 182 (65-105)
[2020-10-24 12:40] LABS: Glucose Point of Care 304 (65-105)
[2020-10-24] MEDS: INSULIN ASPART (*BKC) 100 UNITS/ML SUB-Q ×2 (12:54→18:27)
--- NOTE | 2020-10-24 13:36 | PM.IMPN ---
Progress Note: A&P Assessment and Plan (1) Paroxysmal atrial flutter: Code(s): I48.92 - Unspecified atrial flutter Status: Chronic Assessment and Plan: Pt seen by cardiology (2) Coronary artery disease: Code(s): I25.10 - Atherosclerotic heart disease of [place] coronary artery without angina pectoris Status: Chronic Assessment and Plan: Pt seen by cardiology, chronic and stable (3) GI bleeding: Code(s): K92.2 - Gastrointestinal hemorrhage, unspecified Status: Resolved Assessment and Plan: Surgery consulted (4) Septic shock: Code(s): A41.9 - Sepsis, unspecified organism; R65.21 - Severe sepsis with septic shock Status: Resolved Assessment and Plan: Bp corrected. seen by iCU MD, off vasopressors ok to transfer out of ICU (5) Colitis: Code(s): K52.9 - Noninfective gastroenteritis and colitis, unspecified Status: Inactive Assessment and Plan: Pt on imipenem/ cilastatin, surgery consulted, lactic level better, xay shows colitis. pt can eat today (6) Acute renal failure (ARF): Qualifiers: Acute renal failure type: unspecified Qualified Code(s): N17.9 - Acute kidney failure, unspecified Code(s): N17.9 - Acute kidney failure, unspecified Status: Inactive Assessment and Plan: Pt has history of CKD stage 3, creat is 0.9 (7) Hypokalemia: Code(s): E87.6 - Hypokalemia Status: Acute Assessment and Plan: potassium supplements, consult dietican Subjective Date/time seen: 10/24/20 13:36 Interval history: 85 year old female directly admitted from [facility] for higher level of care. Pt complains of abdominal pain, diarrhea and nausea on/ off for one month. She has a history of diabetes, hypothyroidism, history of CAD with CABG has a left-sided pacemaker history of CHF and hyperlipidemia. On admission septic shock secondary to infective colitis or ischemic colitis was considered, pt still having abdominal tenderness. sepsis has improved, pt can be transferred to medical floor. Seen by surgery and ICU and cardiology, abdominal pain getting better, pt has started eating today Review of Systems Review of Systems: All systems reviewed & are unremarkable except as noted in HPI and below Exam Const: General: tired appearing Eyes: General: appearance normal, both eyes and all related structures Pupils: Equal, round and reactive pupils present Neck: Neck: supple Chest: Chest palpation & inspection: normal inspection of the chest Resp: Effort & Inspection: normal respiratory effort Auscultation: clear to auscultation bilaterally Cardio: Jugular venous distension: no JVD Palpation: other (medtronic in situ ) Rhythm: regular rhythm Heart sounds: S1 normal heart sound present and S2 normal heart sound present GI: Inspection: normal to inspection and other (abdominal pain difuse worse in the lower quadrant ) : General: Yes no CVA tenderness Back/Spine/Pelvis: Back: no CVA tenderness Neuro: Cranial nerves: Yes CN's II-XII intact bilaterally and Yes Equal, round and reactive pupils present Cognition (Neuro): normal cognition Speech: normal speech Motor exam (neuro): 5/5 motor strength present throughout Extrem: General: other (Generalised weakness ) Psych: Appearance: grossly normal Mental Status: mental status grossly normal Objective Data Vital Signs Vital Signs: Vital Signs - 24 hr 10/23/20 14:00 10/23/20 16:00 10/23/20 18:00 Temperature 36.8 C Pulse Rate 70 70 73 Respiratory Rate 20 22 H Blood Pressure 133/68 147/57 H Pulse Oximetry 100 95 10/23/20 20:00 10/24/20 00:00 10/24/20 00:15 Temperature 37.0 C 36.1 C L Pulse Rate 84 70 74 Respiratory Rate 18 18 Blood Pressure 147/53 H 142/54 H Pulse Oximetry 99 97 10/24/20 06:00 10/24/20 08:00 10/24/20 09:22 Temperature 36.2 C L Pulse Rate 98 70 75 Respiratory Rate 18 Blood Pre
[2020-10-24] MEDS: POTASSIUM CHLORIDE 20 MEQ PACKET (FOR LIQUID) 40 MEQ PO (15:05)
[2020-10-24 17:17] LABS: Glucose Point of Care 296 (65-105)
[2020-10-24] MEDS: POTASSIUM CHLORIDE 20 MEQ PACKET (FOR LIQUID) PO (17:36)
[2020-10-24] MEDS: AMITRIPTYLINE HCL 25 MG TABLET 50 MG PO (20:11)
[2020-10-24 21:27] LABS: Glucose Point of Care 297 (65-105)
[2020-10-25] VITALS (10 sets, daily range): BP systolic 124–141; BP diastolic 58–66; PULSE 70–84; RESP 16–20; TEMP 36.1–36.4; O2SAT 98–100
[2020-10-25] MEDS: LEVOTHYROXINE SODIUM 112 MCG TABLET PO (05:50)
[2020-10-25 06:10] LABS: Hematocrit 30.9 % (37.0-47.0); Mean Corpuscular HGB Conc 32.4 g/dl (32-36); Mean Corpuscular Hemoglobin 31.1 pg (26-34); Mean Platelet Volume 11.2 fl (7.4-10.4); Platelet Count Result 127 k/mm3 (150-375); Red Blood Count 3.22 M/mm3 (4.2-5.4); Red Cell Distribution Width 13.5 % (11.5-14.5); White Blood Count 9.2 K/mm3 (4.5-10.0)
[2020-10-25 06:24] LABS: Alanine Aminotransferase 98 U/L (4-35); Albumin Level 2.8 g/dL (3.5-5.1); Alkaline Phosphatase 61 U/L (38-126); Anion Gap 2 mmol/L (8-16); Aspartate Amino Transferase 172 U/L (14-36); Bilirubin,Total 0.9 mg/dL (0.2-1.3); Blood Urea Nitrogen 40 mg/dL (7-17); Calcium 8.9 mg/dL (8.4-10.2); Carbon Dioxide 31 mmol/L (22-30); Chloride 109 mmol/L (98-107); Estimated CRCL calculation 45 ml/min; Estimated Glomerular Filt Rate > 60; Glucose 213 mg/dL (65-105); Magnesium 1.7 mg/dL (1.6-2.3); Phosphorus 1.6 mg/dL (2.5-4.5); Potassium 4.4 mmol/L (3.4-5.0); Sodium 142 mmol/L (137-145)
[2020-10-25 08:19] LABS: Glucose Point of Care 214 (65-105)
[2020-10-25] MEDS: carvediloL 6.25 MG TABLET PO ×2 (09:17→17:30)
[2020-10-25] MEDS: PANTOPRAZOLE 40 MG TABLET PO (09:18)
[2020-10-25] MEDS: POTASSIUM CHLORIDE 20 MEQ PACKET (FOR LIQUID) PO ×2 (09:18→17:30)
[2020-10-25] MEDS: INSULIN ASPART (*BKC) 100 UNITS/ML SUB-Q ×3 (09:20→17:30)
--- NOTE | 2020-10-25 10:54 | PM.PNGS ---
Progress Note: A&P Assessment and Plan (1) Acute colitis: Code(s): K52.9 - Noninfective gastroenteritis and colitis, unspecified Status: Acute Assessment and Plan: continues to improve. Continue Imipenem. Will advance diet slowly to full liquids. Not sure what to make of right-sided chest pain after swallowing but does not seem to be severe. She did not have this before this admission. It does not affect her appetite or eating. Will probably resolve as she improves. (2) Hypokalemia: Code(s): E87.6 - Hypokalemia Status: Acute Assessment and Plan: Potassium up to 4.4. DC supplement if okay with hospitalist. Subjective Subjective Date/Time Seen: 10/25/20 10:54 Patient reports: no new complaints, feels better, pain is less, bowel movement and afebrile Interval history: complains of right lateral chest pain after eating. Not severe. No associated nausea. Still quite hungry and wants to advance diet. Review of Systems Review of Systems: All systems reviewed & are unremarkable except as noted in HPI and below Constitutional: Constitutional: Denies anorexia, Denies chills, Denies fever(s), Denies headache(s) and Reports increased appetite Cardiovascular: Cardiovascular: Reports chest pain ( Right lateral chest discomfort after eating as noted in HPI), Denies chest pain at rest, Denies rapid heart rate, Denies dyspnea and Denies orthopnea Respiratory: Respiratory: Denies cough and Denies dyspnea Gastrointestinal: Gastrointestinal: Reports as per HPI, Denies abdominal pain, Denies early satiety, Denies nausea and Denies vomiting Exam Const: General: comfortable and no acute distress; No confusion Orientation/consciousness: patient oriented x3 and No confusion GI: Inspection: normal to inspection and non-distended GI Palp: Yes Soft to palpation, Yes Tenderness to palpation present (GI) ( diffuse mild tenderness), No Guarding due to palpation present (GI), No Hernia present, No Palpable mass present and No Rebound tenderness present Auscultation: normal bowel sounds Neuro: General: patient oriented x3, no focal motor deficits and No confusion Extrem: General: no calf tenderness and no edema Psych: Affect: normal affect Insight: Good insight present (Psych) Judgement: Good judgement present (Psych) Objective Data Vital Signs Vital Signs: Vital Signs - 24 hr 10/24/20 12:00 10/24/20 14:00 10/24/20 16:00 Temperature 36.1 C L Pulse Rate 73 69 73 Respiratory Rate 16 Blood Pressure 102/61 Pulse Oximetry 97 10/24/20 17:35 10/24/20 20:00 10/24/20 22:00 Temperature 36.3 C L Pulse Rate 64 70 112 H Respiratory Rate 16 Blood Pressure 120/55 L Pulse Oximetry 97 10/25/20 00:00 10/25/20 04:00 10/25/20 06:00 Temperature 36.1 C L Pulse Rate 72 75 73 Respiratory Rate 18 Blood Pressure 141/58 H Pulse Oximetry 98 10/25/20 09:17 Temperature Pulse Rate 84 Respiratory Rate Blood Pressure Pulse Oximetry Intake/Output Intake/Output: Intake & Output 10/22/20 10/23/20 10/24/20 10/25/20 23:59 23:59 23:59 23:59 Intake Total 2700 900 1370 300 Output Total 1900 2125 650 1100 Balance 800 -1225 720 -800 Meds/Results Medications: Active Medications Generic Name Dose Route Start Last Admin Trade Name Freq PRN Reason Stop Dose Admin Acetaminophen 1,000 mg 10/24/20 08:51 Acetaminophen 500 Mg Tablet PO Q6H PRN Mild Pain (1-3) or Fever Amitriptyline HCl 50 mg 10/24/20 21:00 10/24/20 20:11 Amitriptyline Hcl 25 Mg Tablet PO 50 mg HS ARTHUR Administration Carvedilol 6.25 mg 10/24/20 09:00 10/25/20 09:17 Carvedilol 6.25 Mg Tablet PO 6.25 mg BID ARTHUR Administration Dextrose 12.5 gm 10/21/20 10:46 Dextrose 50% 25 Gm/50 Ml Syringe IV PUSH PRN PRN Hypoglycemia Protocol Fentanyl Citrate 12.5 mcg 10/24/20 08:52 Fentanyl Citrate Inj (*Crx) 100 Mcg/2 Ml Vial IV PUSH Q2H PRN
[2020-10-25 12:43] LABS: Glucose Point of Care 280 (65-105)
[2020-10-25] MEDS: ACETAMINOPHEN 500 MG TABLET 1000 MG PO (12:48)
--- NOTE | 2020-10-25 14:26 | PM.IMPN ---
Progress Note: A&P Assessment and Plan (1) Paroxysmal atrial flutter: Code(s): I48.92 - Unspecified atrial flutter Status: Chronic Assessment and Plan: Pt seen by cardiology 85 year old female directly admitted from [facility] for higher level of care. Pt complains of abdominal pain, diarrhea and nausea on/ off for one month. She has a history of diabetes, hypothyroidism, history of CAD with CABG has a left-sided pacemaker history of CHF and hyperlipidemia. On admission septic shock secondary to infective colitis or ischemic colitis was considered, pt still having abdominal tenderness. sepsis has improved, pt can be transferred to medical floor. Seen by surgery and ICU and cardiology, abdominal pain getting better, pt has started eating today Patient is 85-year-old female admitted with colitis being treated with any pain, patient is on clear liquid able to tolerate patient was seen by surgery team and advanced her diet to full liquid as tolerated, patient also complains of right-sided chest after swallowing any eating seen by surgery recommended to monitor and further recommendation to follow. (2) Coronary artery disease: Code(s): I25.10 - Atherosclerotic heart disease of [place] coronary artery without angina pectoris Status: Chronic Assessment and Plan: Pt seen by cardiology, chronic and stable (3) GI bleeding: Code(s): K92.2 - Gastrointestinal hemorrhage, unspecified Status: Resolved Assessment and Plan: Surgery consulted (4) Septic shock: Code(s): A41.9 - Sepsis, unspecified organism; R65.21 - Severe sepsis with septic shock Status: Resolved Assessment and Plan: Bp corrected. seen by iCU MD, off vasopressors ok to transfer out of ICU (5) Colitis: Code(s): K52.9 - Noninfective gastroenteritis and colitis, unspecified Status: Inactive Assessment and Plan: Pt on imipenem/ cilastatin, surgery consulted, lactic level better, xay shows colitis. pt can eat today (6) Acute renal failure (ARF): Qualifiers: Acute renal failure type: unspecified Qualified Code(s): N17.9 - Acute kidney failure, unspecified Code(s): N17.9 - Acute kidney failure, unspecified Status: Inactive Assessment and Plan: Pt has history of CKD stage 3, creat is 0.9 (7) Hypokalemia: Code(s): E87.6 - Hypokalemia Status: Acute Assessment and Plan: potassium supplements, consult dietican Subjective Date/time seen: 10/25/20 14:26 85 year old female directly admitted from [facility] for higher level of care. Pt complains of abdominal pain, diarrhea and nausea on/ off for one month. She has a history of diabetes, hypothyroidism, history of CAD with CABG has a left-sided pacemaker history of CHF and hyperlipidemia. On admission septic shock secondary to infective colitis or ischemic colitis was considered, pt still having abdominal tenderness. sepsis has improved, pt can be transferred to medical floor. Seen by surgery and ICU and cardiology, abdominal pain getting better, pt has started eating today Patient is 85-year-old female admitted with colitis being treated with any pain, patient is on clear liquid able to tolerate patient was seen by surgery team and advanced her diet to full liquid as tolerated, patient also complains of right-sided chest after swallowing any eating seen by surgery recommended to monitor and further recommendation to follow. Review of Systems Review of Systems: All systems reviewed & are unremarkable except as noted in HPI and below Exam Narrative: Exam Narrative: Elderly frail Patient is comfortable, NAD HEENT: eyes are clear and none icteric LUNGS:CTA HEART: RR S1S2 ABD: BS+, diffusely tender Lower extremities: no edema SKIN: nonjaundiced Neuro: grossly intact. Objective Data Vital Signs Vital Signs: Vital Signs - 24 hr 10/24/20 16:00 10/24/20 17:35
[2020-10-25 17:18] LABS: Glucose Point of Care 345 (65-105)
[2020-10-25] MEDS: AMITRIPTYLINE HCL 25 MG TABLET 50 MG PO (21:12)
[2020-10-25 21:17] LABS: Glucose Point of Care 300 (65-105)
[2020-10-26] MEDS: LEVOTHYROXINE SODIUM 112 MCG TABLET PO (05:35)
[2020-10-26 06:00] VITALS: BP 145/57; PULSE 70; RESP 18; TEMP 36.3; O2SAT 99
[2020-10-26] MEDS: ACETAMINOPHEN 500 MG TABLET 1000 MG PO (06:27)
[2020-10-26 06:41] LABS: Hematocrit 31.3 % (37.0-47.0); Hemoglobin 10.3 g/dL (12.0-15.0); Mean Corpuscular HGB Conc 32.9 g/dl (32-36); Mean Corpuscular Hemoglobin 32.4 pg (26-34); Mean Corpuscular Volume 98.4 fl (80-100); Mean Platelet Volume 11.2 fl (7.4-10.4); Platelet Count Result 153 k/mm3 (150-375); Red Blood Count 3.18 M/mm3 (4.2-5.4); Red Cell Distribution Width 13.4 % (11.5-14.5); White Blood Count 10.6 K/mm3 (4.5-10.0)
[2020-10-26 06:51] LABS: Alanine Aminotransferase 127 U/L (4-35); Albumin Level 2.8 g/dL (3.5-5.1); Alkaline Phosphatase 67 U/L (38-126); Anion Gap 4 mmol/L (8-16); Aspartate Amino Transferase 135 U/L (14-36); Bilirubin,Total 0.8 mg/dL (0.2-1.3); Blood Urea Nitrogen 31 mg/dL (7-17); Calcium 8.8 mg/dL (8.4-10.2); Carbon Dioxide 30 mmol/L (22-30); Chloride 105 mmol/L (98-107); Estimated CRCL calculation 45 ml/min; Estimated Glomerular Filt Rate > 60; Glucose 247 mg/dL (65-105); Magnesium 1.5 mg/dL (1.6-2.3); Phosphorus 1.9 mg/dL (2.5-4.5); Potassium 4.6 mmol/L (3.4-5.0); Sodium 139 mmol/L (137-145)
[2020-10-26 07:59] VITALS: PULSE 76
[2020-10-26] MEDS: carvediloL 6.25 MG TABLET PO ×2 (07:59→17:30)
[2020-10-26] MEDS: PANTOPRAZOLE 40 MG TABLET PO (07:59)
[2020-10-26] MEDS: POTASSIUM CHLORIDE 20 MEQ PACKET (FOR LIQUID) PO ×2 (08:00→17:31)
[2020-10-26] MEDS: INSULIN ASPART (*BKC) 100 UNITS/ML SUB-Q ×2 (08:11→17:30)
[2020-10-26] MEDS: MAGNESIUM SULF 2 GM/WATER 50ML 2 GM/50 ML BAG IVPB (08:15)
[2020-10-26 09:55] LABS: Glucose Point of Care 211 (65-105)
--- NOTE | 2020-10-26 10:15 | PCNFU ---
Nutrition Follow-Up Complete: Altered GI function as related to colitis as evidenced by NPO Goal: Meet estimated nutritional needs Progressing towards goal. We will continue current goal. Pt current nutrition is Regular. Last recorded weight is 59.5 kg,up from 56 kg on a admit. Bowel Motility:+BM reported 10/26 Labs Reviewed:PO4 1.9,Glu 247,ALb 2.8,Hgb 10.3 Meds Noted: Synthroid,Protonix,KCL,Coreg,NovoLog Additional Notes: Patient seen today for nutrition follow up. Patient appetite poor. She tries eating eggs and peanut butter at home for protein. Not much of a meat eater and states milk does not agree with her. She is currently on diet supplements of Ensure compact BID, prefers vanilla. Diet office is aware. Discussed low fiber diet today, patient instruction attached. Monitoring; weight, labs, oral intake every 3 days.
--- NOTE | 2020-10-26 10:29 | PM.IMPN ---
Progress Note: A&P Assessment and Plan (1) Paroxysmal atrial flutter: Code(s): I48.92 - Unspecified atrial flutter Status: Chronic Assessment and Plan: 10/26/20 10:29 85 year old female directly admitted from [facility] for higher level of care. Pt complains of abdominal pain, diarrhea and nausea on/ off for one month. She has a history of diabetes, hypothyroidism, history of CAD with CABG has a left-sided pacemaker history of CHF and hyperlipidemia. On admission septic shock secondary to infective colitis or ischemic colitis was considered, pt still having abdominal tenderness. sepsis has improved, pt can be transferred to medical floor. Seen by surgery and ICU and cardiology, abdominal pain getting better, pt has started eating today Patient is 85-year-old female admitted with colitis being treated with imipenem, patient is on clear liquid able to tolerate patient was seen by surgery team and advanced her diet to full liquid as tolerated, patient also complains of right-sided chest after swallowing any eating seen by surgery recommended to monitor and further recommendation to follow. 10/26 85-year-old female admitted with colitis being treated with imipenem and on 10/25 surgery team and advanced her diet to full liquid, patient stated able to tolerate her diet, her right-sided abdominal pain is also him, she does have loose BM, she denies any fever or chills, patient will be seen by surgery team and further recommendation to follow (2) Coronary artery disease: Code(s): I25.10 - Atherosclerotic heart disease of [place] coronary artery without angina pectoris Status: Chronic Assessment and Plan: Pt seen by cardiology, chronic and stable (3) GI bleeding: Code(s): K92.2 - Gastrointestinal hemorrhage, unspecified Status: Resolved Assessment and Plan: Surgery consulted (4) Septic shock: Code(s): A41.9 - Sepsis, unspecified organism; R65.21 - Severe sepsis with septic shock Status: Resolved Assessment and Plan: Bp corrected. seen by iCU MD, off vasopressors ok to transfer out of ICU (5) Colitis: Code(s): K52.9 - Noninfective gastroenteritis and colitis, unspecified Status: Inactive Assessment and Plan: Pt on imipenem/ cilastatin, surgery consulted, lactic level better, xay shows colitis. pt can eat today (6) Acute renal failure (ARF): Qualifiers: Acute renal failure type: unspecified Qualified Code(s): N17.9 - Acute kidney failure, unspecified Code(s): N17.9 - Acute kidney failure, unspecified Status: Inactive Assessment and Plan: Pt has history of CKD stage 3, creat is 0.9 (7) Hypokalemia: Code(s): E87.6 - Hypokalemia Status: Acute Assessment and Plan: potassium supplements, consult dietican Subjective Date/time seen: 10/26/20 10:29 85 year old female directly admitted from [facility] for higher level of care. Pt complains of abdominal pain, diarrhea and nausea on/ off for one month. She has a history of diabetes, hypothyroidism, history of CAD with CABG has a left-sided pacemaker history of CHF and hyperlipidemia. On admission septic shock secondary to infective colitis or ischemic colitis was considered, pt still having abdominal tenderness. sepsis has improved, pt can be transferred to medical floor. Seen by surgery and ICU and cardiology, abdominal pain getting better, pt has started eating today Patient is 85-year-old female admitted with colitis being treated with imipenem, patient is on clear liquid able to tolerate patient was seen by surgery team and advanced her diet to full liquid as tolerated, patient also complains of right-sided chest after swallowing any eating seen by surgery recommended to monitor and further recommendation to follow. 10/26 85-year-old female admitted with colitis being treated with imipenem and on 10/25 surgery team and advanced her diet to
[2020-10-26 12:15] LABS: Glucose Point of Care 172 (65-105)
[2020-10-26] MEDS: MAGNESIUM OXIDE 400 MG TABLET PO (12:24)
[2020-10-26 14:00] VITALS: BP 131/59; PULSE 92; RESP 16; TEMP 36.2; O2SAT 100
--- NOTE | 2020-10-26 15:56 | PM.PNGS ---
Progress Note: A&P Assessment and Plan (1) Acute colitis: Code(s): K52.9 - Noninfective gastroenteritis and colitis, unspecified Status: Acute Assessment and Plan: Continues to improve. Continue Imipenem. Could think about switching to oral antibiotics tomorrow. Would consider completing course of antibiotics for a total of 10 days with perhaps Levaquin 500 once a day and metronidazole 500 3 times a day PO. Will leave this up to the hospitalists discretion. (Antibiotics mainly for suspected colitis). Will advance diet slowly to soft foods/ Diabetic diet. Patient does not complain of any pain with swallowing today. (2) Hypokalemia: Code(s): E87.6 - Hypokalemia Status: Acute Assessment and Plan: Potassium up to 4.4. DC supplement if okay with hospitalist. Additional Plan Okay from the surgical point of view to begin planning for discharge to a step-down bed at [facility]. Consider removing Shore and watching with a voiding trial in a.m. (patient was not using a Shore prior to coming to ICU). Subjective Subjective Date/Time Seen: 10/26/20 15:56 Patient denies abdominal pain today. Is having stools but they are not controlled and loose. Patient is hoping to transfer soon to step down at [facility]. She is feeling better each day. She feels very weak however. She states that recently meat has not set well with her stomach. Therefore, will advance her to soft diet and let her get some protein by eating eggs cheese or peanut butter. Will also add a high-protein pudding to the supplements. Review of Systems Review of Systems: All systems reviewed & are unremarkable except as noted in HPI and below Constitutional: Constitutional: Reports as per HPI, Denies anorexia, Denies chills, Denies fatigue, Denies fever(s), Denies headache(s), Reports increased appetite, Reports lethargy and Reports weakness (generalized) Eyes: Eyes: Reports no additional eye complaints, Denies change in vision and Denies loss of vision Respiratory: Respiratory: Reports no additional respiratory complaints, Denies cough, Denies dyspnea and Denies wheezing Gastrointestinal: Gastrointestinal: Reports as per HPI, Reports no additional gastrointestinal complaints, Denies abdominal pain, Denies melena, Denies early satiety, Denies diarrhea, Reports loose stools, Denies nausea and Denies vomiting Comments: Complains about very loose stools when she moves. Genitourinary: Genitourinary: Denies hematuria and Denies dysuria Comments: Still has Shore catheter in place from ICU. Musculoskeletal: Musculoskeletal: Reports no additional musculoskeletal complaints, Denies deformity, Denies joint swelling, Denies radiating pain into limb and Denies tingling Integumentary/Breasts: Skin/Breast: Denies pruritus, Denies lesions, Denies erythema, Denies wounds and Denies jaundice Neurologic: Reports system reviewed and no additional complaints, except as documented, Reports Normal hearing present, Denies confusion, Denies dizziness, Denies syncope, Denies headache(s), Denies loss of vision, Denies tingling, Denies tremor(s) and Reports weakness (generalized) Psychiatric: Psychiatric: Denies anxiety, Denies confusion and Denies depression Endocrine: Endocrine: Denies fatigue Comments: Blood sugars still occasionally running high. Allergic/Immunologic: Allergic/Immunologic: Denies wheezing Exam Const: General: comfortable and no acute distress; No confusion Nutritional Appearance: average body habitus Orientation/consciousness: patient oriented x3 and No confusion Limitations: no limitations HENMT: Head: normal to inspection, normocephalic and atraumatic Ears: hearing grossly normal bilaterally and external ears normal General nose exam: Normal external nose present Mouth: Yes Normal oral and palatal mucosa present and Yes moist mucous membranes Eyes: General: appearance normal, both eyes and all related structures Conjunctivae: con
[2020-10-26 17:30] VITALS: PULSE 64
[2020-10-26] MEDS: BISACODYL 10 MG SUPPOSITORY RECTAL (17:31)
[2020-10-26 18:20] LABS: Glucose Point of Care 258 (65-105)
[2020-10-26 20:18] LABS: Glucose Point of Care 242 (65-105)
[2020-10-26] MEDS: AMITRIPTYLINE HCL 25 MG TABLET 50 MG PO (21:34)
[2020-10-26 22:00] VITALS: BP 133/54; PULSE 70; RESP 16; TEMP 36.7; O2SAT 97
[2020-10-27] MEDS: ONDANSETRON INJ 4 MG/2 ML VIAL IV PUSH (03:04)
[2020-10-27 05:39] VITALS: BP 140/59; PULSE 70; RESP 18; TEMP 36.7; O2SAT 96
[2020-10-27 06:09] LABS: Hematocrit 30.7 % (37.0-47.0); Mean Corpuscular HGB Conc 32.6 g/dl (32-36); Mean Corpuscular Hemoglobin 32.2 pg (26-34); Mean Corpuscular Volume 98.7 fl (80-100); Mean Platelet Volume 11.2 fl (7.4-10.4); Platelet Count Result 163 k/mm3 (150-375); Red Blood Count 3.11 M/mm3 (4.2-5.4); Red Cell Distribution Width 13.4 % (11.5-14.5); White Blood Count 12.3 K/mm3 (4.5-10.0)
[2020-10-27] MEDS: LEVOTHYROXINE SODIUM 112 MCG TABLET PO (06:09)
[2020-10-27 06:30] LABS: Albumin Level 2.6 g/dL (3.5-5.1); Anion Gap 2 mmol/L (8-16); Blood Urea Nitrogen 24 mg/dL (7-17); Calcium 8.4 mg/dL (8.4-10.2); Carbon Dioxide 30 mmol/L (22-30); Chloride 104 mmol/L (98-107); Estimated CRCL calculation 45 ml/min; Estimated Glomerular Filt Rate > 60; Glucose 264 mg/dL (65-105); Magnesium 1.6 mg/dL (1.6-2.3); Phosphorus 2.6 mg/dL (2.5-4.5); Sodium 136 mmol/L (137-145)
[2020-10-27 06:46] LABS: Prealbumin 6.7 mg/dL (17.6-36.0)
[2020-10-27] MEDS: MAGNESIUM OXIDE 400 MG TABLET PO (08:23)
[2020-10-27] MEDS: INSULIN ASPART (*BKC) 100 UNITS/ML SUB-Q ×2 (08:23→12:27)
[2020-10-27] MEDS: PANTOPRAZOLE 40 MG TABLET PO (08:23)
[2020-10-27] MEDS: polyethylene glycoL 3350 17 GM POWD.PACK PO (08:23)
[2020-10-27 08:24] VITALS: PULSE 64
[2020-10-27] MEDS: carvediloL 6.25 MG TABLET PO ×2 (08:24→18:10)
[2020-10-27] MEDS: PSYLLIUM POWDER PACKET 1 PACKET PO (08:24)
[2020-10-27 08:37] LABS: Glucose Point of Care 259 (65-105)
--- NOTE | 2020-10-27 09:28 | PC.NURSE ---
Left message for dietitian for high protein pudding for diabetics.
--- NOTE | 2020-10-27 10:20 | PM.PNGS ---
Progress Note: A&P Assessment and Plan (1) Acute colitis: Code(s): K52.9 - Noninfective gastroenteritis and colitis, unspecified Status: Acute Assessment and Plan: Patient had an episode of vomiting overnight and having more complaints of abdominal pain and tenderness today. Abdominal x-ray this morning showed dilated small bowel consistent with ileus, and also stool within the colon and rectum. Her nausea has improved and has not had any more vomiting this morning. Will back her off to a full liquid diet and monitor closely to see how she tolerates this. Continue Imipenem (on day 7). Stool studies all negative. Continue Miralax and Metamucil. (2) Ileus: Code(s): K56.7 - Ileus, unspecified Status: Acute Assessment and Plan: Back down to full liquid diet and monitor. May need to consider NG tube if unable to tolerate a liquid diet. Repeat abdominal films tomorrow morning. Encouraged patient to increase activity and up in the chair for meals. Additional Plan Discussed the patient's case and plan of care with Dr. Cooper. Subjective Subjective Date/Time Seen: 10/27/20 10:20 Patient reports: flatus, diarrhea, nausea and vomiting Interval history: Patient seen this morning. She reports having an episode of vomiting overnight, yellow liquid. She reports multiple liquid BMs over the past few days. Per the nurse, she has had mucous-like liquid BMs multiple times overnight. Patient reports some mild generalized abdominal pain and states her abdomen feels sore. Reports feeling tired from getting up in the chair. No other complaints. Review of Systems Review of Systems: All systems reviewed & are unremarkable except as noted in HPI and below Constitutional: Constitutional: Denies chills and Denies fever(s) Gastrointestinal: Gastrointestinal: Reports as per HPI and Reports no additional gastrointestinal complaints Exam Const: General: comfortable and no acute distress Orientation/consciousness: patient oriented x3 Resp: Effort & Inspection: able to speak in complete sentences and no respiratory distress Auscultation: clear to auscultation bilaterally Cardio: Rate: regular rate Rhythm: regular rhythm GI: Inspection: distended GI Palp: Yes Soft to palpation, Yes Tenderness to palpation present (GI) (diffusely tender), Yes Guarding due to palpation present (GI) (involuntary guarding) and No Hernia present Auscultation: High-pitched bowel sounds present and Hyperactive bowel sounds present Urinary Catheter: Urinary Catheter: patent and draining and urine clear Skin: General skin exam: normal color Neuro: General: moves all extremities, no focal motor deficits and No confusion Extrem: General: no clubbing, cyanosis or edema and no calf tenderness Psych: Mental Status: mental status grossly normal Affect: normal affect Insight: Fair insight present (Psych) Judgement: Fair judgement present (Psych) Objective Data Vital Signs Vital Signs: Vital Signs - 24 hr 10/26/20 14:00 10/26/20 17:30 10/26/20 22:00 Temperature 97.2 F L 98.1 F Pulse Rate 92 64 70 Respiratory Rate 16 16 Blood Pressure 131/59 L 133/54 L Pulse Oximetry 100 97 10/27/20 05:39 10/27/20 08:24 Temperature 98.1 F Pulse Rate 70 64 Respiratory Rate 18 Blood Pressure 140/59 L Pulse Oximetry 96 Intake/Output Intake/Output: Intake & Output 10/24/20 10/25/20 10/26/20 10/27/20 23:59 23:59 23:59 23:59 Intake Total 1370 1570 1660 100 Output Total 650 1600 950 800 Balance 720 -30 710 -700 Meds/Results Medications: Active Medications Generic Name Dose Route Start Last Admin Trade Name Freq PRN Reason Stop Dose Admin Acetaminophen 1,000 mg 10/24/20 08:51 10/26/20 06:27 Acetaminophen 500 Mg Tablet PO 1,000 mg Q6H PRN Administration Mild Pain (1-3) or Fever Amitriptyline HCl 50 mg 10/24/20 21:00 10/26/20 21:34 Amitriptyline Hcl 25 Mg Tablet PO 50 mg [facility] Administrati
[2020-10-27 12:19] LABS: Glucose Point of Care 263 (65-105)
--- NOTE | 2020-10-27 13:31 | PM.IMPN ---
Progress Note: A&P Assessment and Plan (1) Paroxysmal atrial flutter: Code(s): I48.92 - Unspecified atrial flutter Status: Chronic Assessment and Plan: 10/27/20 13:31 85 year old female directly admitted from [facility] for higher level of care. Pt complains of abdominal pain, diarrhea and nausea on/ off for one month. She has a history of diabetes, hypothyroidism, history of CAD with CABG has a left-sided pacemaker history of CHF and hyperlipidemia. On admission septic shock secondary to infective colitis or ischemic colitis was considered, pt still having abdominal tenderness. sepsis has improved, pt can be transferred to medical floor. Seen by surgery and ICU and cardiology, abdominal pain getting better, pt has started eating today Patient is 85-year-old female admitted with colitis being treated with imipenem, patient is on clear liquid able to tolerate patient was seen by surgery team and advanced her diet to full liquid as tolerated, patient also complains of right-sided chest after swallowing any eating seen by surgery recommended to monitor and further recommendation to follow. 10/26 85-year-old female admitted with colitis being treated with imipenem and on 10/25 surgery team and advanced her diet to full liquid, patient stated able to tolerate her diet, her right-sided abdominal pain is also him, she does have loose BM, she denies any fever or chills, patient will be seen by surgery team and further recommendation to follow. 10/27 85-year-old female admitted with colitis being treated with imipenem ( day 7th) and on 10/25 surgery team and advanced her diet to full liquid, however last night patient had an episode of emesis and KUB showed ileus however patient does have a bowel movement consisting of yellow mucus seen by surgery service today DC full liquid and place back clear liquid and monitor try to avoid NG tube will continue to monitor and further recommendation to follow, history of diabetes currently patient on moderate dose sliding scale, will add lantus 5 units at bed time and continue moderate dose sliding scale. Will continue to monitor and further recommendation to follow (2) Coronary artery disease: Code(s): I25.10 - Atherosclerotic heart disease of [place] coronary artery without angina pectoris Status: Chronic Assessment and Plan: Pt seen by cardiology, chronic and stable (3) GI bleeding: Code(s): K92.2 - Gastrointestinal hemorrhage, unspecified Status: Resolved Assessment and Plan: Surgery consulted (4) Septic shock: Code(s): A41.9 - Sepsis, unspecified organism; R65.21 - Severe sepsis with septic shock Status: Resolved Assessment and Plan: Bp corrected. seen by iCU MD, off vasopressors ok to transfer out of ICU (5) Colitis: Code(s): K52.9 - Noninfective gastroenteritis and colitis, unspecified Status: Inactive Assessment and Plan: Pt on imipenem/ cilastatin, surgery consulted, lactic level better, xay shows colitis. pt can eat today (6) Acute renal failure (ARF): Qualifiers: Acute renal failure type: unspecified Qualified Code(s): N17.9 - Acute kidney failure, unspecified Code(s): N17.9 - Acute kidney failure, unspecified Status: Inactive Assessment and Plan: Pt has history of CKD stage 3, creat is 0.9 (7) Hypokalemia: Code(s): E87.6 - Hypokalemia Status: Acute Assessment and Plan: potassium supplements, consult dietican Subjective Date/time seen: 10/27/20 13:31 85 year old female directly admitted from [facility] for higher level of care. Pt complains of abdominal pain, diarrhea and nausea on/ off for one month. She has a history of diabetes, hypothyroidism, history of CAD with CABG has a left-sided pacemaker history of CHF and hyperlipidemia. On admission septic shock secondary to infective colitis or ischemic colitis was considered, pt still
[2020-10-27 14:00] VITALS: BP 128/63; PULSE 70; RESP 20; TEMP 36.7; O2SAT 100
[2020-10-27 17:16] LABS: Glucose Point of Care 197 (65-105)
[2020-10-27 18:10] VITALS: PULSE 72
[2020-10-27] MEDS: ACETAMINOPHEN 500 MG TABLET 1000 MG PO (19:53)
[2020-10-27] MEDS: AMITRIPTYLINE HCL 25 MG TABLET 50 MG PO (19:54)
[2020-10-27 20:00] VITALS: O2SAT 98
[2020-10-27] MEDS: INSULIN GLARGINE (*BKC) 100 UNITS/ML SUB-Q (20:35)
[2020-10-27] MEDS: fentaNYL CITRATE INJ (*CRX) 100 MCG/2 ML VIAL 12.5 MCG IV PUSH (21:02)
[2020-10-27 21:49] LABS: Glucose Point of Care 223 (65-105)
[2020-10-27 22:00] VITALS: BP 148/71; PULSE 69; RESP 16; TEMP 36.6; O2SAT 98
[2020-10-28] MEDS: LEVOTHYROXINE SODIUM 112 MCG TABLET PO (05:36)
[2020-10-28] MEDS: ACETAMINOPHEN 500 MG TABLET 1000 MG PO (05:36)
[2020-10-28 06:00] VITALS: BP 139/90; PULSE 70; RESP 16; TEMP 37.3; O2SAT 97
[2020-10-28 06:14] LABS: Hematocrit 31.8 % (37.0-47.0); Hemoglobin 10.3 g/dL (12.0-15.0); Mean Corpuscular HGB Conc 32.4 g/dl (32-36); Mean Corpuscular Hemoglobin 31.6 pg (26-34); Mean Corpuscular Volume 97.5 fl (80-100); Mean Platelet Volume 11.4 fl (7.4-10.4); Platelet Count Result 184 k/mm3 (150-375); Red Blood Count 3.26 M/mm3 (4.2-5.4); Red Cell Distribution Width 13.1 % (11.5-14.5)
[2020-10-28 06:29] LABS: Albumin Level 2.8 g/dL (3.5-5.1); Anion Gap 0 mmol/L (8-16); Blood Urea Nitrogen 21 mg/dL (7-17); Calcium 8.7 mg/dL (8.4-10.2); Carbon Dioxide 34 mmol/L (22-30); Chloride 100 mmol/L (98-107); Estimated CRCL calculation 45 ml/min; Estimated Glomerular Filt Rate > 60; Glucose 277 mg/dL (65-105); Magnesium 1.6 mg/dL (1.6-2.3); Phosphorus 3.1 mg/dL (2.5-4.5); Potassium 4.7 mmol/L (3.4-5.0); Sodium 134 mmol/L (137-145)
[2020-10-28] MEDS: INSULIN ASPART (*BKC) 100 UNITS/ML SUB-Q (08:22)
--- NOTE | 2020-10-28 10:29 | PM.PNGS ---
Progress Note: A&P Assessment and Plan (1) Acute colitis: Code(s): K52.9 - Noninfective gastroenteritis and colitis, unspecified Status: Acute Assessment and Plan: WBC slowly increasing to 13,000 today and patient is having more abdominal pain and nausea. Abdominal x-ray still shows persistently dilated small bowel. Will get a CTA abdomen/pelvis to reassess the colitis and better assess for ischemia. Make patient NPO while awaiting CTA and start IV fluids. Discussed this with the Hospitalist. Continue Imipenem (on day 8). Will have the nurse give another dulcolax supp. (2) Ileus: Code(s): K56.7 - Ileus, unspecified Status: Acute Assessment and Plan: Abdominal films this morning showed persistently dilated small bowel. Patient is not progressing as we would expect. See plan above. May need to consider PPN for nutrition depending on what the CTA shows. Additional Plan Discussed the patient's case and plan of care with Dr. Cooper. Subjective Subjective Date/Time Seen: 10/28/20 10:29 Patient reports: still having pain, nausea and afebrile Interval history: Patient feeling worse this morning. Complaining of more abdominal pain, generalized. Reports nausea, but no vomiting. Denies BM since yesterday morning. Reports lots of belching, no flatus today. Review of Systems Review of Systems: All systems reviewed & are unremarkable except as noted in HPI and below Constitutional: Constitutional: Denies chills and Denies fever(s) Gastrointestinal: Gastrointestinal: Reports as per HPI and Reports no additional gastrointestinal complaints Exam Const: General: no acute distress Orientation/consciousness: patient oriented x3 Resp: Effort & Inspection: no respiratory distress Auscultation: clear to auscultation bilaterally Cardio: Rate: regular rate Rhythm: regular rhythm GI: Inspection: distended GI Palp: Yes Soft to palpation and Yes Tenderness to palpation present (GI) (diffusely) Percussion: Yes tympanic to percussion Auscultation: Hypoactive bowel sounds present Urinary Catheter: Urinary Catheter: patent and draining and urine clear Skin: General skin exam: normal color Neuro: General: moves all extremities and no focal motor deficits Extrem: General: no clubbing, cyanosis or edema and no calf tenderness Psych: Mental Status: mental status grossly normal Attitude: cooperative Insight: Fair insight present (Psych) Judgement: Fair judgement present (Psych) Objective Data Vital Signs Vital Signs: Vital Signs - 24 hr 10/27/20 14:00 10/27/20 18:10 10/27/20 20:00 Temperature 98.0 F Pulse Rate 70 72 Respiratory Rate 20 Blood Pressure 128/63 Pulse Oximetry 100 98 10/27/20 22:00 10/28/20 06:00 Temperature 97.9 F 99.1 F Pulse Rate 69 70 Respiratory Rate 16 16 Blood Pressure 148/71 H 139/90 Pulse Oximetry 98 97 Intake/Output Intake/Output: Intake & Output 10/25/20 10/26/20 10/27/20 10/28/20 23:59 23:59 23:59 23:59 Intake Total 1570 1660 1660 200 Output Total 8234 588 2477 300 Balance -30 710 285 -100 Meds/Results Medications: Active Medications Generic Name Dose Route Start Last Admin Trade Name Freq PRN Reason Stop Dose Admin Acetaminophen 1,000 mg 10/24/20 08:51 10/28/20 05:36 Acetaminophen 500 Mg Tablet PO 1,000 mg Q6H PRN Administration Mild Pain (1-3) or Fever Amitriptyline HCl 50 mg 10/24/20 21:00 10/27/20 19:54 Amitriptyline Hcl 25 Mg Tablet PO 50 mg HS ARTHUR Administration Bisacodyl 10 mg 10/26/20 15:54 Bisacodyl 10 Mg Suppository RECTAL QAM PRN Constipation Carvedilol 6.25 mg 10/24/20 09:00 10/27/20 18:10 Carvedilol 6.25 Mg Tablet PO 6.25 mg BID ARTHUR Administration Dextrose 12.5 gm 10/21/20 10:46 Dextrose 50% 25 Gm/50 Ml Syringe IV PUSH PRN PRN Hypoglycemia Protocol Fentanyl Citrate 12.5 mcg 10/24/20 08:52 10/27/20 21:02 Fentanyl Citrate Inj (*Crx) 100
--- NOTE | 2020-10-28 11:10 | PCNFU ---
Nutrition Follow-Up Complete: Altered GI function as related to colitis as evidenced by NPO Goal: Meet estimated nutritional needs Patient is currently on NPO diet due to an ileus. Pt current nutrition is NPO. Last recorded weight is 58.6 kg. Bowel Motility: + BM 10/27 Labs Reviewed: Hgb 10.3, Hct 31.8, Alb 2.8, Na 134, BUN 21, Glu 277 Meds Noted: Elavil, Coreg, Sublimaze, Lantus, Novolog, Synthroid, Protonix, Miralax, Mag-ox, Potassium Chloride Additional Notes: A calorie count was ordered but due to NPO diet it will have to wait until diet order is lifted. Will monitor every 3 days.
--- NOTE | 2020-10-28 11:24 | PCNSR ---
On 10/28/20, the student, Melinda Pantoja, provided care and completed [facility] documentation on this patient. I have reviewed the student's documentation and agree with the findings.
[2020-10-28] MEDS: BISACODYL 10 MG SUPPOSITORY RECTAL (12:26)
[2020-10-28] MEDS: LACTATED RINGERS 1,000 ML 75 ML IV CONT (12:30)
--- NOTE | 2020-10-28 13:13 | PM.IMPN ---
Progress Note: A&P Assessment and Plan (1) Paroxysmal atrial flutter: Code(s): I48.92 - Unspecified atrial flutter Status: Chronic Assessment and Plan: 10/28/20 13:13 85 year old female directly admitted from [facility] for higher level of care. Pt complains of abdominal pain, diarrhea and nausea on/ off for one month. She has a history of diabetes, hypothyroidism, history of CAD with CABG has a left-sided pacemaker history of CHF and hyperlipidemia. On admission septic shock secondary to infective colitis or ischemic colitis was considered, pt still having abdominal tenderness. sepsis has improved, pt can be transferred to medical floor. Seen by surgery and ICU and cardiology, abdominal pain getting better, pt has started eating today Patient is 85-year-old female admitted with colitis being treated with imipenem, patient is on clear liquid able to tolerate patient was seen by surgery team and advanced her diet to full liquid as tolerated, patient also complains of right-sided chest after swallowing any eating seen by surgery recommended to monitor and further recommendation to follow. 10/26 85-year-old female admitted with colitis being treated with imipenem and on 10/25 surgery team and advanced her diet to full liquid, patient stated able to tolerate her diet, her right-sided abdominal pain is also him, she does have loose BM, she denies any fever or chills, patient will be seen by surgery team and further recommendation to follow. 10/27 85-year-old female admitted with colitis being treated with imipenem ( day 7th) and on 10/25 surgery team and advanced her diet to full liquid, however last night patient had an episode of emesis and KUB showed ileus however patient does have a bowel movement consisting of yellow mucus seen by surgery service today DC full liquid and place back clear liquid and monitor try to avoid NG tube will continue to monitor and further recommendation to follow, history of diabetes currently patient on moderate dose sliding scale, will add lantus 5 units at bed time and continue moderate dose sliding scale. Will continue to monitor and further recommendation to follow 10/28 85-year-old female admitted with colitis being treated with imipenem ( day 8th) today patient complains abdominal pain and nausea as well as belching, passing gas minimally, unable to tolerate p.o., denies any fever or chills, discussed with surgery team will place the patient NPO, and gently hydrate, to further evaluate patient will have CT scan of the abdomen and pelvis and further recommendation to follow (2) Coronary artery disease: Code(s): I25.10 - Atherosclerotic heart disease of [place] coronary artery without angina pectoris Status: Chronic Assessment and Plan: Pt seen by cardiology, chronic and stable (3) GI bleeding: Code(s): K92.2 - Gastrointestinal hemorrhage, unspecified Status: Resolved Assessment and Plan: Surgery consulted (4) Septic shock: Code(s): A41.9 - Sepsis, unspecified organism; R65.21 - Severe sepsis with septic shock Status: Resolved Assessment and Plan: Bp corrected. seen by iCU MD, off vasopressors ok to transfer out of ICU (5) Colitis: Code(s): K52.9 - Noninfective gastroenteritis and colitis, unspecified Status: Inactive Assessment and Plan: Pt on imipenem/ cilastatin, surgery consulted, lactic level better, xay shows colitis. pt can eat today (6) Acute renal failure (ARF): Qualifiers: Acute renal failure type: unspecified Qualified Code(s): N17.9 - Acute kidney failure, unspecified Code(s): N17.9 - Acute kidney failure, unspecified Status: Inactive Assessment and Plan: Pt has history of CKD stage 3, creat is 0.9 (7) Hypokalemia: Code(s): E87.6 - Hypokalemia Status: Acute Assessment and Plan: potassium supplements, consult dietican Subjective Date/time s
[2020-10-28 13:49] LABS: Glucose Point of Care 220 (65-105)
[2020-10-28 13:49] LABS: Glucose Point of Care 153 (65-105)
[2020-10-28 14:00] VITALS: BP 128/50; PULSE 70; RESP 16; TEMP 36.1; O2SAT 96
[2020-10-28] MEDS: LIDOCAINE HCL 1% LOCAL INJ 2 ML AMPUL 5 ML INFILTRATE (14:30)
--- NOTE | 2020-10-28 14:43 | PCPTNOTE ---
The PT treatment was unable to be completed today, patient in procedure. Will continue per Plan of Care frequency and duration.
[2020-10-28 18:41] LABS: Glucose Point of Care 155 (65-105)
[2020-10-28] MEDS: AMINO ACIDS 5%/D15W/E-LYTES/CA 2,000 ML with MULTIVITAMINS-12 INJ VIAL 1 2.5 ML, MULTIV... 40 ML IV CONT (21:05)
[2020-10-28] MEDS: FAT EMULSIONS IV 20% 250 ML 20.83 ML IVPB (21:05)
[2020-10-28] MEDS: AMITRIPTYLINE HCL 25 MG TABLET 50 MG PO (21:06)
[2020-10-28] MEDS: CENTRAL LINE FLUSH 10 ML IV PUSH (21:06)
[2020-10-28] MEDS: INSULIN GLARGINE (*BKC) 100 UNITS/ML SUB-Q (21:17)
[2020-10-28 21:28] LABS: Glucose Point of Care 171 (65-105)
[2020-10-28 22:00] VITALS: BP 124/70; PULSE 68; RESP 20; TEMP 37.1; O2SAT 94
[2020-10-29] MEDS: INSULIN ASPART (*BKC) 100 UNITS/ML SUB-Q ×4 (00:05→18:38)
[2020-10-29 00:30] LABS: Glucose Point of Care 232 (65-105)
[2020-10-29] MEDS: CENTRAL LINE FLUSH 10 ML IV PUSH ×3 (05:38→21:45)
[2020-10-29] MEDS: CENTRAL LINE FLUSH 20 ML IV PUSH (05:38)
[2020-10-29] MEDS: LEVOTHYROXINE SODIUM 112 MCG TABLET PO (05:43)
[2020-10-29 05:48] LABS: Basophils Absolute Auto 0.1 K/mm3 (0.0-0.1); Basophils Percent Auto 0.5 % (0.2-1.2); Eosinophils Absolute Auto 0.2 K/mm3 (0-0.3); Eosinophils Percent Auto 1.7 % (0-4.4); Hematocrit 28.5 % (37.0-47.0); Hemoglobin 9.1 g/dL (12.0-15.0); Immature Granulocyte Absolute 0.17 K/mm3 (0.00-0.031); Immature Granulocyte Percent A 1.7 % (0-0.5); Lymphocytes Absolute Auto 1.28 K/mm3 (0.9-3.2); Lymphocytes Percent Auto 12.8 % (18.3-44.2); Mean Corpuscular HGB Conc 31.9 g/dl (32-36); Mean Corpuscular Hemoglobin 31.7 pg (26-34); Mean Corpuscular Volume 99.3 fl (80-100); Mean Platelet Volume 11.5 fl (7.4-10.4); Monocytes Absolute Auto 0.7 K/mm3 (0.1-0.6); Monocytes Percent Auto 6.9 % (2.6-8.5); Neutrophils Absolute Auto 7.6 K/mm3 (1.3-6.7); Neutrophils Percent Auto 76.4 % (45.5-73.1); Platelet Count Result 179 k/mm3 (150-375); Red Blood Count 2.87 M/mm3 (4.2-5.4)
[2020-10-29 06:00] VITALS: BP 133/53; PULSE 74; RESP 16; TEMP 36.6; O2SAT 94
[2020-10-29 06:02] LABS: Alanine Aminotransferase 31 U/L (4-35); Albumin Level 2.4 g/dL (3.5-5.1); Alkaline Phosphatase 57 U/L (38-126); Anion Gap 3 mmol/L (8-16); Aspartate Amino Transferase 23 U/L (14-36); Bilirubin,Total 0.2 mg/dL (0.2-1.3); Blood Urea Nitrogen 18 mg/dL (7-17); Calcium 7.7 mg/dL (8.4-10.2); Carbon Dioxide 31 mmol/L (22-30); Chloride 99 mmol/L (98-107); Estimated CRCL calculation 45 ml/min; Estimated Glomerular Filt Rate > 60; Glucose 265 mg/dL (65-105); Magnesium 1.5 mg/dL (1.6-2.3); Phosphorus 3.3 mg/dL (2.5-4.5); Potassium 4.2 mmol/L (3.4-5.0); Sodium 133 mmol/L (137-145)
[2020-10-29 06:03] LABS: Transferrin 117 mg/dL (206-381)
[2020-10-29 06:10] LABS: Partial Thromboplastin Time 28.5 SECONDS (22.3-36.8)
[2020-10-29 06:46] LABS: Glucose Point of Care 261 (65-105)
[2020-10-29] MEDS: BISACODYL 10 MG SUPPOSITORY RECTAL (08:15)
[2020-10-29] MEDS: MAGNESIUM SULF 2 GM/WATER 50ML 2 GM/50 ML BAG IVPB (08:33)
--- NOTE | 2020-10-29 10:28 | PM.PNGS ---
Progress Note: A&P Assessment and Plan (1) Acute colitis: Code(s): K52.9 - Noninfective gastroenteritis and colitis, unspecified Status: Acute Assessment and Plan: CTA yesterday showed descending and rectosigmoid colitis with no evidence of ischemia, and interval development of a small bowel obstruction with distinct transition point in the mid ileum. I reviewed the CT with the Radiologist who states the TON is patent and there is no evidence of pneumatosis or portal venous gas. We have continued to defer NG tube placement since patient has not vomited. She did well overnight and actually appears to have clinically improved as of today. I will discuss the patient's diet with Dr. Cooper, currently NPO. Continue TPN. Continue Imipenem (day 9). WBC down today. Continue dulcolax supp daily. (2) Ileus: Code(s): K56.7 - Ileus, unspecified Status: Acute Assessment and Plan: Abdominal films this morning showed again persistently dilated small bowel. Continue TPN and bowel rest. See plan above. Additional Plan Discussed the plan of care with Dr. Cooper. Subjective Subjective Date/Time Seen: 10/29/20 10:28 Patient reports: no new complaints, feels better, pain is less, flatus, bowel movement and afebrile Interval history: Patient seen this morning and is feeling better. She denies any abdominal pain this morning and states her nausea has resolved. She is still belching a lot. She cannot recall if she is passing gas or has had a BM. There is documentation of 1 BM overnight and 2 yesterday. No other complaints at this time. Review of Systems Review of Systems: All systems reviewed & are unremarkable except as noted in HPI and below Exam Const: General: comfortable and no acute distress Orientation/consciousness: patient oriented x3 Resp: Effort & Inspection: no respiratory distress Auscultation: clear to auscultation bilaterally Cardio: Rate: regular rate Rhythm: regular rhythm GI: Inspection: other (mildly distended, but improved today) GI Palp: Yes Soft to palpation, Yes Tenderness to palpation present (GI) (less tender, only tender in LLQ) and No Guarding due to palpation present (GI) Auscultation: Hypoactive bowel sounds present Rectal Exam: deferred Urinary Catheter: Urinary Catheter: patent and draining and urine clear Skin: General skin exam: normal color Neuro: General: moves all extremities and no focal motor deficits Extrem: General: no clubbing, cyanosis or edema and no calf tenderness Psych: Mental Status: mental status grossly normal Attitude: cooperative Insight: Fair insight present (Psych) Judgement: Fair judgement present (Psych) Objective Data Vital Signs Vital Signs: Vital Signs - 24 hr 10/28/20 14:00 10/28/20 22:00 10/29/20 06:00 Temperature 97.0 F L 98.8 F 98 F Pulse Rate 70 68 74 Respiratory Rate 16 20 16 Blood Pressure 128/50 L 124/70 133/53 L Pulse Oximetry 96 94 94 Intake/Output Intake/Output: Intake & Output 10/26/20 10/27/20 10/28/20 10/29/20 23:59 23:59 23:59 23:59 Intake Total 1660 1660 400 100 Output Total 950 1375 900 500 Balance 710 285 -500 -400 Meds/Results Medications: Active Medications Generic Name Dose Route Start Last Admin Trade Name Freq PRN Reason Stop Dose Admin Acetaminophen 1,000 mg 10/24/20 08:51 10/28/20 05:36 Acetaminophen 500 Mg Tablet PO 1,000 mg Q6H PRN Administration Mild Pain (1-3) or Fever Amitriptyline HCl 50 mg 10/24/20 21:00 10/28/20 21:06 Amitriptyline Hcl 25 Mg Tablet PO 50 mg HS ARTHUR Administration Bisacodyl 10 mg 10/28/20 12:25 10/29/20 08:15 Bisacodyl 10 Mg Suppository RECTAL 10 mg QAM ARTHUR Administration Carvedilol 6.25 mg 10/24/20 09:00 10/29/20 08:29 Carvedilol 6.25 Mg Tablet PO Not Given BID ARTHUR Dextrose 12.5 gm 10/21/20 10:46 Dextrose 50% 25 Gm/50 Ml Syringe IV PUSH PRN PRN Hypoglycemia Protocol Fentanyl Citrate
--- NOTE | 2020-10-29 11:09 | PCNFU ---
Nutrition Follow-Up Complete: Altered GI function as related to colitis as evidenced by NPO Goal: Meet estimated nutritional needs Patient is currently NPO with TPN. Nurse is hoping patient will move to clear liquids within a day or two. Pt current nutrition is Clinimix/Clinimix E 5/15 at 40 ml/hour and 250 ml at 20.83 mls/hr of 20% lipid emulsion providing 1182 kcals and 48 grams of protein providing 86% of patient's estimated caloric needs. Last recorded weight is 58.6 kg. Bowel Motility: + BM 10/27 Labs Reviewed: Hgb 10.3, Hct 31.8, Alb 2.8, Na 134, BUN 21, Glu 277 Meds Noted: Protonix, Coreg, Lipids 20%, Novolog, Lantus, Synthroid, Mag-Ox, Kcl, Miralax Additional Notes: Spoke with patient's nurse. She reported patient had clear bowel sounds today so they are hoping she will be put on a clear liquid diet starting tomorrow. She does not have an NG tube but there is an order placed in case patient begins vomiting. Will monitor every Monday and Monday.
--- NOTE | 2020-10-29 12:19 | PCNSR ---
On 10/29/20, the student, Melinda Pantoja, provided care and completed [facility] documentation on this patient. I have reviewed the student's documentation and agree with the findings.
[2020-10-29 12:47] LABS: Glucose Point of Care 201 (65-105)
--- NOTE | 2020-10-29 13:24 | PM.IMPN ---
Progress Note: A&P Assessment and Plan (1) Paroxysmal atrial flutter: Code(s): I48.92 - Unspecified atrial flutter Status: Chronic Assessment and Plan: 10/29/20 13:26 85 year old female directly admitted from [facility] for higher level of care. Pt complains of abdominal pain, diarrhea and nausea on/ off for one month. She has a history of diabetes, hypothyroidism, history of CAD with CABG has a left-sided pacemaker history of CHF and hyperlipidemia. On admission septic shock secondary to infective colitis or ischemic colitis was considered, pt still having abdominal tenderness. sepsis has improved, pt can be transferred to medical floor. Seen by surgery and ICU and cardiology, abdominal pain getting better, pt has started eating today Patient is 85-year-old female admitted with colitis being treated with imipenem, patient is on clear liquid able to tolerate patient was seen by surgery team and advanced her diet to full liquid as tolerated, patient also complains of right-sided chest after swallowing any eating seen by surgery recommended to monitor and further recommendation to follow. 10/26 85-year-old female admitted with colitis being treated with imipenem and on 10/25 surgery team and advanced her diet to full liquid, patient stated able to tolerate her diet, her right-sided abdominal pain is also him, she does have loose BM, she denies any fever or chills, patient will be seen by surgery team and further recommendation to follow. 10/27 85-year-old female admitted with colitis being treated with imipenem ( day 7th) and on 10/25 surgery team and advanced her diet to full liquid, however last night patient had an episode of emesis and KUB showed ileus however patient does have a bowel movement consisting of yellow mucus seen by surgery service today DC full liquid and place back clear liquid and monitor try to avoid NG tube will continue to monitor and further recommendation to follow, history of diabetes currently patient on moderate dose sliding scale, will add lantus 5 units at bed time and continue moderate dose sliding scale. Will continue to monitor and further recommendation to follow 10/28 85-year-old female admitted with colitis being treated with imipenem ( day 8th) today patient complains abdominal pain and nausea as well as belching, passing gas minimally, unable to tolerate p.o., denies any fever or chills, discussed with surgery team will place the patient NPO, and gently hydrate, to further evaluate patient will have CT scan of the abdomen and pelvis and further recommendation to follow, 10/29 85-year-old female admitted with colitis being treated with imipenem ( day 9th) on 10/27 patient had emesis KUB showed ileus, and patient was seen by by surgery team had a CTA abdominal did not show any thrombosis or ischemia, Interval development of mid ileal small bowel obstruction. Today patient still complains of abdominal but no vomiting patient seen by surgery team today was started on TPN, decided against NG tube as patient has not had emesis, KUB today showed Persistently dilated small bowel, better appreciated on yesterday's CT. Will follow recommendation from surgery service (2) Coronary artery disease: Code(s): I25.10 - Atherosclerotic heart disease of [place] coronary artery without angina pectoris Status: Chronic Assessment and Plan: Pt seen by cardiology, chronic and stable (3) GI bleeding: Code(s): K92.2 - Gastrointestinal hemorrhage, unspecified Status: Resolved Assessment and Plan: Surgery consulted (4) Septic shock: Code(s): A41.9 - Sepsis, unspecified organism; R65.21 - Severe sepsis with septic shock Status: Resolved Assessment and Plan: Bp corrected. seen by iCU MD, off vasopressors ok to transfer out of ICU (5) Colitis: Code(s): K52.9 - Noninfective gastroenteritis and colitis, unspecified Status: Acute Assessment and Plan
[2020-10-29 14:00] VITALS: BP 157/59; PULSE 66; RESP 16; TEMP 36.3; O2SAT 95
[2020-10-29] MEDS: SODIUM CHLORIDE 0.9% IV 1,000 ML 60 ML IV CONT (16:49)
[2020-10-29] MEDS: fentaNYL CITRATE INJ (*CRX) 100 MCG/2 ML VIAL 12.5 MCG IV PUSH (17:08)
[2020-10-29 18:57] LABS: Glucose Point of Care 231 (65-105)
[2020-10-29 20:12] LABS: SARS-CoV-2 RNA PCR Negative
[2020-10-29 20:41] LABS: Triglycerides 133 mg/dL (<150)
[2020-10-29] MEDS: AMITRIPTYLINE HCL 25 MG TABLET 50 MG PO (21:44)
[2020-10-29] MEDS: INSULIN GLARGINE (*BKC) 100 UNITS/ML SUB-Q (21:45)
[2020-10-29] MEDS: AMINO ACIDS 5%/D15W/E-LYTES/CA 2,000 ML with MULTIVITAMINS-12 INJ VIAL 1 2.5 ML, MULTIV... 40 ML IV CONT (21:54)
[2020-10-29] MEDS: FAT EMULSIONS IV 20% 250 ML 21 ML IVPB (21:57)
[2020-10-29 22:00] VITALS: BP 167/57; PULSE 72; RESP 16; TEMP 36.6; O2SAT 97
[2020-10-29 22:15] LABS: Glucose Point of Care 189 (65-105)
[2020-10-30] MEDS: INSULIN ASPART (*BKC) 100 UNITS/ML SUB-Q ×4 (00:45→18:48)
[2020-10-30] MEDS: fentaNYL CITRATE INJ (*CRX) 100 MCG/2 ML VIAL 12.5 MCG IV PUSH ×2 (00:50→21:56)
[2020-10-30 01:39] LABS: Glucose Point of Care 215 (65-105)
[2020-10-30 06:00] VITALS: BP 147/51; PULSE 70; RESP 18; TEMP 36.6; O2SAT 97
[2020-10-30 06:42] LABS: Glucose Point of Care 270 (65-105)
[2020-10-30 06:43] LABS: Hemoglobin 9.1 g/dL (12.0-15.0); Mean Corpuscular HGB Conc 32.5 g/dl (32-36); Mean Corpuscular Hemoglobin 31.7 pg (26-34); Mean Corpuscular Volume 97.6 fl (80-100); Mean Platelet Volume 11.2 fl (7.4-10.4); Platelet Count Result 188 k/mm3 (150-375); Red Blood Count 2.87 M/mm3 (4.2-5.4); White Blood Count 9.8 K/mm3 (4.5-10.0)
[2020-10-30 06:56] LABS: Albumin Level 2.4 g/dL (3.5-5.1); Anion Gap 0 mmol/L (8-16); Blood Urea Nitrogen 18 mg/dL (7-17); Calcium 7.4 mg/dL (8.4-10.2); Carbon Dioxide 29 mmol/L (22-30); Chloride 102 mmol/L (98-107); Estimated CRCL calculation 52 ml/min; Estimated Glomerular Filt Rate > 60; Glucose 263 mg/dL (65-105); Magnesium 1.6 mg/dL (1.6-2.3); Phosphorus 3.6 mg/dL (2.5-4.5); Potassium 3.8 mmol/L (3.4-5.0); Sodium 131 mmol/L (137-145)
[2020-10-30 08:00] VITALS: PULSE 75; RESP 18; O2SAT 97
[2020-10-30 08:13] LABS: Glucose Point of Care 232 (65-105)
[2020-10-30 09:54] VITALS: PULSE 75
[2020-10-30] MEDS: LEVOTHYROXINE SODIUM 112 MCG TABLET PO (09:54)
[2020-10-30] MEDS: carvediloL 6.25 MG TABLET PO (09:54)
[2020-10-30] MEDS: MAGNESIUM OXIDE 400 MG TABLET PO (09:54)
[2020-10-30] MEDS: PANTOPRAZOLE 40 MG TABLET PO (09:54)
[2020-10-30] MEDS: POTASSIUM CHLORIDE 20 MEQ PACKET (FOR LIQUID) PO (09:57)
[2020-10-30] MEDS: polyethylene glycoL 3350 17 GM POWD.PACK PO (09:57)
--- NOTE | 2020-10-30 10:01 | PM.PNGS ---
Progress Note: A&P Assessment and Plan (1) Acute colitis: Code(s): K52.9 - Noninfective gastroenteritis and colitis, unspecified Status: Acute Assessment and Plan: CTA on 10/28 showed descending and rectosigmoid colitis with no evidence of ischemia, and interval development of a small bowel obstruction with distinct transition point in the mid ileum. I reviewed the CT with the Radiologist who states the TON is patent and there is no evidence of pneumatosis or portal venous gas. We have continued to defer NG tube placement since patient has not vomited. She did well overnight and actually appears to be clinically about the same to slightly more distended today. Since she is not improving rapidly I think a small-bowel follow-through is reasonable. Since yesterday's abdominal films still showed a very gas distended stomach I think it will be safer to do this with an NG tube in place so that we could put it to suction if she can't empty the stomach. This would help try to prevent aspiration too. There is already a a standing order for NG tube so the nurse will place this and then we will try to do the small-bowel follow-through through the NG afterwards. Currently NPO. Continue TPN via Jordan line. Continue Imipenem (day 10). WBC down today. Continue dulcolax supp daily. (2) Ileus: Code(s): K56.7 - Ileus, unspecified Status: Acute Assessment and Plan: Will proceed to small-bowel follow-through to sort out between ileus versus mechanical small-bowel obstruction Continue TPN and bowel rest. See plan above. Additional Plan Discussed the plan of care with Dr. Wilhelm. Subjective Subjective Date/Time Seen: 10/30/20 10:01 Patient lying in bed today stating that she just woke up and slept okay. No vomiting or bowel movement overnight. She thought she has been passing some gas but she is somewhat distended today. No nausea. Review of Systems Review of Systems: All systems reviewed & are unremarkable except as noted in HPI and below Constitutional: Constitutional: Reports as per HPI, Denies anorexia, Denies chills, Denies fatigue, Denies fever(s), Denies headache(s), Reports increased appetite, Reports lethargy and Reports weakness (generalized) Eyes: Eyes: Reports no additional eye complaints, Denies change in vision and Denies loss of vision ENT: Reports Normal hearing present, Denies dizziness and Denies headache(s) Cardiovascular: Cardiovascular: Reports no additional cardiovascular complaints, Reports chest pain ( Right lateral chest discomfort after eating as noted in HPI), Denies chest pain at rest, Denies syncope, Denies rapid heart rate, Denies leg edema, Denies lightheadedness, Denies radiating jaw, neck or arm pain, Denies dyspnea and Denies orthopnea Respiratory: Respiratory: Reports no additional respiratory complaints, Denies cough, Denies dyspnea and Denies wheezing Gastrointestinal: Gastrointestinal: Reports as per HPI, Reports no additional gastrointestinal complaints, Denies abdominal pain, Denies melena, Denies early satiety, Denies diarrhea, Reports loose stools, Denies nausea and Denies vomiting Genitourinary: Genitourinary: Denies hematuria and Denies dysuria Musculoskeletal: Musculoskeletal: Reports no additional musculoskeletal complaints, Denies deformity, Denies joint swelling, Denies radiating pain into limb and Denies tingling Integumentary/Breasts: Skin/Breast: Denies pruritus, Denies lesions, Denies erythema, Denies wounds and Denies jaundice Neurologic: Reports system reviewed and no additional complaints, except as documented, Reports Normal hearing present, Denies confusion, Denies dizziness, Denies syncope, Denies headache(s), Denies loss of vision, Denies tingling, Denies tremor(s) and Reports weakness (generalized) Psychiatric: Psychiatric: Denies anxiety, Denies confusion and Denies depression Comments: Patient somewhat anxious and states: I just do not know what to do
--- NOTE | 2020-10-30 10:59 | PCNFU ---
Nutrition Follow-Up Complete: Altered GI function as related to colitis as evidenced by NPO Goal: Meet estimated nutritional needs Progressing towards goal. WE will continue current goal. Pt current nutrition is NPO. Weight: 58.6 kg up from 56 kg on admit. Bowel Motility:+BM reported 10/29 Labs Reviewed:Glu 263,BUN 18,Cr 0.6,Na 131 Meds Noted:Clinimix 5/15 at 40 ml/hr with 250 ml of 20% Lipid Emulsion, NS at 60 ml/hr, Novolog, Synthroid,Mag Ox,Coreg, KCL, Protonix. Additional Notes: Nutrition follow up. Patient remains on TPN which is providing 1182 kcals and 48 gms protein. Plans for NGT placement today due to small bowel follow through testing. MD reporting abdominal distention. If patient remains on TPN would recommend goal rate at 50 ml/hr which will provide patient with 1352 kcals/60 gms. which will provide patient with 97% of caloric needs. Monitoring: weight, labs, nutrition support every Monday and Monday.
[2020-10-30] MEDS: BISACODYL 10 MG SUPPOSITORY RECTAL (11:00)
--- NOTE | 2020-10-30 11:57 | PM.IMPN ---
Progress Note: A&P Assessment and Plan (1) Paroxysmal atrial flutter: Code(s): I48.92 - Unspecified atrial flutter Status: Chronic Assessment and Plan: 10/30/20 11:57 85 year old female directly admitted from [facility] for higher level of care. Pt complains of abdominal pain, diarrhea and nausea on/ off for one month. She has a history of diabetes, hypothyroidism, history of CAD with CABG has a left-sided pacemaker history of CHF and hyperlipidemia. On admission septic shock secondary to infective colitis or ischemic colitis was considered, pt still having abdominal tenderness. sepsis has improved, pt can be transferred to medical floor. Seen by surgery and ICU and cardiology, abdominal pain getting better, pt has started eating today Patient is 85-year-old female admitted with colitis being treated with imipenem, patient is on clear liquid able to tolerate patient was seen by surgery team and advanced her diet to full liquid as tolerated, patient also complains of right-sided chest after swallowing any eating seen by surgery recommended to monitor and further recommendation to follow. 10/26 85-year-old female admitted with colitis being treated with imipenem and on 10/25 surgery team and advanced her diet to full liquid, patient stated able to tolerate her diet, her right-sided abdominal pain is also him, she does have loose BM, she denies any fever or chills, patient will be seen by surgery team and further recommendation to follow. 10/27 85-year-old female admitted with colitis being treated with imipenem ( day 7th) and on 10/25 surgery team and advanced her diet to full liquid, however last night patient had an episode of emesis and KUB showed ileus however patient does have a bowel movement consisting of yellow mucus seen by surgery service today DC full liquid and place back clear liquid and monitor try to avoid NG tube will continue to monitor and further recommendation to follow, history of diabetes currently patient on moderate dose sliding scale, will add lantus 5 units at bed time and continue moderate dose sliding scale. Will continue to monitor and further recommendation to follow 10/28 85-year-old female admitted with colitis being treated with imipenem ( day 8th) today patient complains abdominal pain and nausea as well as belching, passing gas minimally, unable to tolerate p.o., denies any fever or chills, discussed with surgery team will place the patient NPO, and gently hydrate, to further evaluate patient will have CT scan of the abdomen and pelvis and further recommendation to follow, 10/29 85-year-old female admitted with colitis being treated with imipenem ( day 9th) on 10/27 patient had emesis KUB showed ileus, and patient was seen by by surgery team had a CTA abdominal did not show any thrombosis or ischemia, Interval development of mid ileal small bowel obstruction. Today patient still complains of abdominal but no vomiting patient seen by surgery team today was started on TPN, decided against NG tube as patient has not had emesis, KUB today showed Persistently dilated small bowel, better appreciated on yesterday's CT. Will follow recommendation from surgery service. 10/30 85-year-old female admitted with colitis being treated with imipenem ( day 10th), patient's symptoms are not improving she has not had any nausea or vomiting however patient is not passing any gas and her abdomen is quite distended and patient appears to be in pain, discussed with Dr. Cooper, will place NG tube to decompress and do the a small-bowel follow-through afterward, if there is no obstruction will continue to monitor if there is obstruction patient may need surgical evaluation and further recommendation to follow. (2) Coronary artery disease: Code(s): I25.10 - Atherosclerotic heart disease of [place] coronary artery without angina pectoris Status: Chronic Assessment and Plan: Pt seen by cardiology, chronic and stabl
[2020-10-30] MEDS: SODIUM CHLORIDE 0.9% IV 1,000 ML 60 ML IV CONT (12:28)
[2020-10-30] MEDS: CENTRAL LINE FLUSH 10 ML IV PUSH ×4 (13:41→22:54)
[2020-10-30 14:00] VITALS: BP 147/51; PULSE 68; RESP 16; TEMP 36.3; O2SAT 98
--- NOTE | 2020-10-30 14:07 | PCOTNOTE ---
Attempted to see patient three times this date. First attempt, pt declined stating, They're going to put a tube down my nose. RN entering room to place NG tube. Second attempt, patient was having bedside testing. Third attempt, patient was resting soundly and did not disturb.
[2020-10-30 18:41] LABS: Glucose Point of Care 223 (65-105)
[2020-10-30 20:00] VITALS: O2SAT 98
[2020-10-30 20:14] LABS: Glucose Point of Care 206 (65-105)
[2020-10-30 21:42] VITALS: BP 147/61; PULSE 67; RESP 20; TEMP 36.6; O2SAT 98
[2020-10-30] MEDS: INSULIN GLARGINE (*BKC) 100 UNITS/ML 9 UNITS SUB-Q (22:11)
[2020-10-30] MEDS: FAT EMULSIONS IV 20% 250 ML 21 ML IVPB (22:39)
[2020-10-30] MEDS: AMINO ACIDS 5%/D15W/E-LYTES/CA 2,000 ML with MULTIVITAMINS-12 INJ VIAL 1 2.5 ML, MULTIV... 40 ML IV CONT (22:49)
[2020-10-31] VITALS (18 sets, daily range): BP systolic 124–177; BP diastolic 43–112; PULSE 67–70; RESP 12–24; TEMP 35.7–36.9; O2SAT 94–100
[2020-10-31] MEDS: INSULIN ASPART (*BKC) 100 UNITS/ML SUB-Q ×2 (00:36→05:37)
[2020-10-31 00:45] LABS: Glucose Point of Care 268 (65-105)
[2020-10-31 00:45] LABS: Glucose Point of Care 282 (65-105)
[2020-10-31] MEDS: SODIUM CHLORIDE 0.9% IV 1,000 ML 60 ML IV CONT ×2 (05:31→15:50)
[2020-10-31] MEDS: CENTRAL LINE FLUSH 10 ML IV PUSH ×4 (05:38→21:52)
[2020-10-31 05:52] LABS: Glucose Point of Care 240 (65-105)
[2020-10-31 06:07] LABS: Hematocrit 28.6 % (37.0-47.0); Hemoglobin 9.2 g/dL (12.0-15.0); Mean Corpuscular HGB Conc 32.2 g/dl (32-36); Mean Corpuscular Hemoglobin 31.6 pg (26-34); Mean Corpuscular Volume 98.3 fl (80-100); Mean Platelet Volume 11.5 fl (7.4-10.4); Platelet Count Result 207 k/mm3 (150-375); Red Blood Count 2.91 M/mm3 (4.2-5.4); Red Cell Distribution Width 12.9 % (11.5-14.5); White Blood Count 7.6 K/mm3 (4.5-10.0)
[2020-10-31 06:12] LABS: Albumin Level 2.3 g/dL (3.5-5.1); Anion Gap -1 mmol/L (8-16); Blood Urea Nitrogen 17 mg/dL (7-17); Calcium 7.5 mg/dL (8.4-10.2); Carbon Dioxide 29 mmol/L (22-30); Chloride 104 mmol/L (98-107); Estimated CRCL calculation 45 ml/min; Estimated Glomerular Filt Rate > 60; Glucose 262 mg/dL (65-105); Phosphorus 2.6 mg/dL (2.5-4.5); Sodium 132 mmol/L (137-145)
--- NOTE | 2020-10-31 09:05 | WPDHPUPDATE1 ---
History and Physical Update Update Date/Time: 10/31/20 09:05 History and Physical has been reviewed, including an updated exam of the patient. There are changes in the patient's condition. See recent full progress notes. Two days ago the patient had a repeat CT scan to check on her colitis. This was improved however this showed possible partial or complete distal small bowel obstruction. This is not resolve so we need to proceed with lysis of adhesions to release the small bowel obstruction. Risks, benefits, and alternatives of laparoscopy possible laparotomy for release of small-bowel obstruction have been discussed and questions answered. Patient agrees to proceed with procedure.
[2020-10-31] MEDS: BISACODYL 10 MG SUPPOSITORY RECTAL (09:46)
--- NOTE | 2020-10-31 09:48 | ECG_ITS ---
Measurements Intervals [place] Rate: 73 P: NM: 0 QRS: -70 QRSD: 186 T: 120 QT: 466 QTc: 515 Interpretive Statements ELECTRONIC VENTRICULAR PACEMAKER BASELINE ARTIFACT- V1, V6 NO FURTHER INTERPRETATION IS POSSIBLE ATYPICAL ECG Electronically Signed On 10-31-2020 14:42:58 IDENTIFICATION PRINTING MACHINE SETTER by Jim Herr D.O.
--- NOTE | 2020-10-31 10:13 | WPDANESEPP ---
Anes - Eval Pre Procedure Date/Time: 10/31/20 10:13 Pre Op Diagnosis: Sepsis/colitis/GI bleed Patient Data Age: 85 Gender: F Height: 5 ft 4 in Weight: 58.6 kg Last Vital Signs Temp 36.3 C L 10/31/20 06:00 Pulse 67 10/31/20 09:44 Resp 16 10/31/20 06:00 BP 126/43 L 10/31/20 06:00 Pulse Ox 96 10/31/20 06:00 Allergies Allergy/AdvReac Type Severity Reaction Status Date / Time adhesive tape Allergy Severe BLISTERS Verified 10/21/20 09:34 amiodarone Allergy Severe N/V, Verified 10/21/20 09:34 HEADACHE, HOSPITALIZED atorvastatin Allergy Severe SWELLING Verified 10/21/20 09:34 butorphanol Allergy Severe RESTLESSNES Verified 10/21/20 09:34 S cerivastatin Allergy Severe ABDOMINAL Verified 10/21/20 09:34 PAIN, H/A clindamycin Allergy Severe TACHYCARDIA Verified 10/21/20 09:34 dexamethasone Allergy Severe IRRITATED Verified 10/21/20 09:34 EYES duloxetine Allergy Severe H/A Verified 10/21/20 09:34 gabapentin Allergy Severe CHF Verified 10/21/20 09:34 gemfibrozil Allergy Severe ELEVATED Verified 10/21/20 09:34 CHOLESTEROL guaifenesin Allergy Severe NERVOUSNESS Verified 10/21/20 09:34 hydrocodone Allergy Severe N/V Verified 10/21/20 09:34 isosorbide Allergy Severe H/A Verified 10/21/20 09:34 ketorolac Allergy Severe CHEST PAIN Verified 10/21/20 09:34 levofloxacin Allergy Severe VOMITING Verified 10/21/20 09:34 nifedipine Allergy Severe SWELLING Verified 10/21/20 09:34 nitroglycerin Allergy Severe VOMITING Verified 10/21/20 09:34 norfloxacin Allergy Severe SWELLING Verified 10/21/20 09:34 oxycodone Allergy Severe VOMITING Verified 10/21/20 09:34 phenylephrine Allergy Severe NERVOUSNESS Verified 10/21/20 09:34 phenylpropanolamine Allergy Severe NERVOUSNESS Verified 10/21/20 09:34 prednisone Allergy Severe H/A Verified 10/21/20 09:34 rofecoxib Allergy Severe UPSET Verified 10/21/20 09:34 STOMACH, CAN TAKE WITH MEALS tobramycin Allergy Severe IRRITATED Verified 10/21/20 09:34 EYES adhesive Allergy Intermediate Unknown Verified 10/21/20 09:34 chlorpheniramine [Ornade] Allergy Intermediate Unknown Verified 10/21/20 09:34 codeine Allergy Intermediate Unknown Verified 10/21/20 09:34 doxycycline Allergy Intermediate Unknown Verified 10/21/20 09:34 erythromycin base Allergy Intermediate Unknown Verified 10/21/20 09:34 flurbiprofen [Ansaid] Allergy Intermediate Unknown Verified 10/21/20 09:34 tetracycline Allergy Intermediate Unconscious Verified 10/21/20 09:34 tramadol [Ultram] Allergy Intermediate Unknown Verified 10/21/20 09:34 cephalexin Allergy Mild Rash Verified 10/21/20 09:34 ciprofloxacin Allergy Unknown Unknown Verified 10/21/20 09:34 diclofenac Allergy Unknown Unknown Verified 10/21/20 09:34 hydroxyzine Allergy Unknown Unknown Verified 10/21/20 09:34 Penicillins Allergy Unknown Unknown Verified 10/21/20 09:34 propoxyphene Allergy Unknown Unknown Verified 10/21/20 09:34 terfenadine Allergy Unknown Unknown Verified 10/21/20 09:34 enalaprilat AdvReac Severe COUGH Verified 10/21/20 09:34 meperidine AdvReac Severe H/A Verified 10/21/20 09:34 Home Medications Medication Instructions Recorded Confirmed Type aspirin [Aspir-81] 81 mg PO DAILY 07/22/19 10/21/20 History carvedilol 6.25 mg tablet 6.25 mg PO BID #60 tablet 06/08/20 10/21/20 Rx furosemide 40 mg PO DAILY 09/04/20 10/21/20 History amitriptyline 50 mg tablet 50 mg PO HS #90 tablet 09/28/20 10/21/20 Rx ferrous sulfate 27 mg PO BID 10/21/20 10/21/20 History fosinopril 10 mg PO BID 10/21/20 10/21/20 History levothyroxine 112 mcg PO DAILY 10/21/20 10/21/20 History potassium chloride 10 meq PO DAILY 10/21/20 10/21/20 History pravastatin 20 mg PO DAILY 10/21/20 10/21/20 History rivaroxaban [Xarelto] 15 mg PO DAILY 10/21/20 10/21/20 History semaglutide [Ozempic] 0.5 mg SUBCUT WEEKLY 10/21/20 10/21/20 History Laboratory Tests 10/30/20 10/30/20 10/30/20 12:44 18:32 22:08 WBC RBC Hgb Hct
[2020-10-31 10:17] LABS: Troponin I < 0.012 ng/mL (0.000-0.034)
--- NOTE | 2020-10-31 11:25 | WPDANESEFPP ---
Anes - Eval Final PreProcedure Day of Procedure 10/31/20 11:25 Patient weight: normal Heart: regular rate and rhythm (paced) Lungs: clear to auscultation Airway: Mallampati scale class II Neurological: alert and oriented Last oral intake: >/= 8 hours ASA classification: IV Emergent: yes Anesthetic plan: proceed Anesthesia type and monitoring: general ETT and standard monitoring Other findings: possible a-line and central line, possible prolonged intubation Informed Consent: The patient's anesthetic plan of GA and its attendant risks including , NM and prolonged intubation and benefits were discussed with the patient.. Questions were solicited and answers provided to the satisfaction of the patient. Dr. Cooper has discussed risks with the patient's family and they agree to proceed.
--- NOTE | 2020-10-31 11:45 | PC.NURSE ---
pt to or at 1120, iv left ej triple lumen sl, report given to pacu nurse sbar sent.
[2020-10-31 11:48] LABS: Glucose Point of Care 204 (65-105)
[2020-10-31] MEDS: BUPIVACAINE/EPINEPHRINE 0.5% 30 ML VIAL INFILTRATE (12:20)
[2020-10-31] MEDS: LACTATED RINGERS 1,000 ML 30 ML IV CONT (13:44)
--- NOTE | 2020-10-31 13:58 | PM.PROC ---
Procedure Note - Detailed Date of procedure: 10/31/20 Pre-op diagnosis: Sepsis/colitis/GI bleed 1. Small-bowel obstruction Post-op diagnosis: same (Secondary to inflammatory adhesions next left colon) Procedure performed: Diagnostic laparoscopy, with laparoscopic lysis of adhesions and release of small-bowel obstruction. Description of procedure: The patient was brought from her hospital room to the OR. EKG preoperatively was slightly abnormal but after both Medicine and anesthesia reviewed the EKG was felt that she could tolerate general anesthesia. Patient already had a Shore catheter in NG tube indwelling. Therefore, after oral endotracheal intubation we carefully prepped the entire abdomen and draped it sterilely to allowed wide access to the abdomen for laparoscopy. The patient was seen preoperatively in her hospital room and a H&P update was done this morning. Following this we carefully started by beginning accessed the abdomen through a small incision in the left upper quadrant of the abdomen 2 fingerbreadths below the costal margin. The site was marked local anesthetic using 0.5% Marcaine with epinephrine was infiltrated into the skin and the abdominal wall. Following this small incision was made with a 15 blade knife followed by carefully grasping the skin edges with towel clips. I then used a Veress needle to insert this into the abdomen but lifting up on the abdominal anterior abdominal wall with the towel clips. Water drop test was positive when connected the CO2 gas and insufflated the abdomen to 14 mmHg pressure CO2 following this in the 0 degree 5 mm laparoscoped was placed over a 5 mm trocar and this was carefully twisted in the abdomen without difficulty and we saw nice free space after coming through the abdominal wall and peritoneum. The trocar was removed the scope placed back in and the gas connected to this port in turned up to a high flow 40 liters/minute. Following this we carefully inspected the intra-abdominal area of the abdomen and there was a wide base of omental adhesions starting just below the umbilicus extending down the anterior abdominal wall toward the pelvis. We could see dilated loops of small bowel to the left of this. We turned the patient into the slight Trendelenburg and right side down position and 2 more 5 mm ports were brought through the anterior abdominal wall with direct vision in standard fashion. Following this I began taking down the adhesions of the omentum starting from where we could see easily cephalad working inferiorly. The omentum was attached the anterior abdominal wall along we carefully dissected this off the anterior abdominal wall and followed it down to the anterior pelvic wall and then on to the right pelvic sidewall. There was a loop of small bowel going underneath this that was difficult to see but it appeared dilated. We carefully took down this entire area of omental adhesions and then the omentum was able to be flipped up to the upper abdomen. This allowed us then begin following the small bowel. As we were able to follow the small bowel back to the ileocecal valve it was estimated that approximately half of the ileum was decompressed but was starting to fill with fluid. There was 1 small for serosal burn site from our dissection on this part of the ileum. Then as we followed the small bowel back we found another area where the wall of a short loop of small bowel was densely adhered with inflammatory adhesions to the left pelvic sidewall and to a loop of sigmoid colon probably from her previous colitis. There was a little bit of pussy exudate here and I took a picture of this. A wide area of that loop of small bowel was adhered and we were able it gently take this down. One small serosal tear occurred but there was no other signs of problems with the small bowel. This freed the bowel completely and we followed it all the way back into the left upper quadrant with no other signs of obstru
--- NOTE | 2020-10-31 14:49 | PCPTNOTE ---
Attempted therapy session, Pt out of room for surgery. Will continue per POC.
[2020-10-31 15:49] LABS: Glucose Point of Care 192 (65-105)
[2020-10-31] MEDS: AMINO ACIDS 5%/D15W/E-LYTES/CA 2,000 ML with MULTIVITAMINS-12 INJ VIAL 1 2.5 ML, MULTIV... 40 ML IV CONT (21:51)
[2020-10-31] MEDS: FAT EMULSIONS IV 20% 250 ML 21 ML IVPB (21:52)
[2020-10-31] MEDS: AMITRIPTYLINE HCL 25 MG TABLET 50 MG PO (22:02)
[2020-10-31] MEDS: INSULIN GLARGINE (*BKC) 100 UNITS/ML 9 UNITS SUB-Q (22:09)
[2020-10-31 22:15] LABS: Glucose Point of Care 207 (65-105)
[2020-10-31 22:24] LABS: Triglycerides 204 mg/dL (<150)
[2020-10-31] MEDS: fentaNYL CITRATE INJ (*CRX) 100 MCG/2 ML VIAL 12.5 MCG IV PUSH (23:04)
[2020-11-01] VITALS (15 sets, daily range): BP systolic 110–151; BP diastolic 50–90; PULSE 70–94; RESP 12–16; TEMP 35.7–37; O2SAT 94–100
[2020-11-01] MEDS: INSULIN ASPART (*BKC) 100 UNITS/ML SUB-Q ×2 (00:39→17:32)
[2020-11-01 00:54] LABS: Glucose Point of Care 221 (65-105)
[2020-11-01] MEDS: ACETAMINOPHEN 500 MG TABLET 1000 MG PO (03:06)
[2020-11-01] MEDS: MORPHINE SULFATE (*CRX) 2 MG/ML INJ IV PUSH ×3 (05:34→17:58)
[2020-11-01] MEDS: CENTRAL LINE FLUSH 10 ML IV PUSH ×4 (05:38→21:36)
[2020-11-01 05:49] LABS: Glucose Point of Care 166 (65-105)
[2020-11-01 05:59] LABS: Hematocrit 28.2 % (37.0-47.0); Hemoglobin 8.9 g/dL (12.0-15.0); Mean Corpuscular HGB Conc 31.6 g/dl (32-36); Mean Corpuscular Hemoglobin 30.8 pg (26-34); Mean Corpuscular Volume 97.6 fl (80-100); Mean Platelet Volume 11.2 fl (7.4-10.4); Platelet Count Result 211 k/mm3 (150-375); Red Blood Count 2.89 M/mm3 (4.2-5.4); White Blood Count 7.4 K/mm3 (4.5-10.0)
[2020-11-01 06:15] LABS: Albumin Level 2.1 g/dL (3.5-5.1); Anion Gap 1 mmol/L (8-16); Blood Urea Nitrogen 16 mg/dL (7-17); Calcium 7.2 mg/dL (8.4-10.2); Carbon Dioxide 28 mmol/L (22-30); Chloride 105 mmol/L (98-107); Estimated CRCL calculation 52 ml/min; Estimated Glomerular Filt Rate > 60; Glucose 169 mg/dL (65-105); Phosphorus 2.4 mg/dL (2.5-4.5); Potassium 3.9 mmol/L (3.4-5.0); Sodium 134 mmol/L (137-145)
[2020-11-01] MEDS: ENOXAPARIN 40 MG/0.4 ML SYRINGE SUB-Q (08:07)
[2020-11-01] MEDS: PANTOPRAZOLE SODIUM IV 40 MG VIAL IV PUSH (08:08)
[2020-11-01] MEDS: SODIUM CHLORIDE 0.9% IV 1,000 ML 60 ML IV CONT ×2 (08:11→23:07)
[2020-11-01] MEDS: BISACODYL 10 MG SUPPOSITORY RECTAL (08:11)
--- NOTE | 2020-11-01 09:32 | PM.PNCARD ---
Progress Note: A&P Assessment and Plan (1) Septic shock: Code(s): A41.9 - Sepsis, unspecified organism; R65.21 - Severe sepsis with septic shock Status: Resolved Assessment and Plan: Resolved. (2) GI bleeding: Code(s): K92.2 - Gastrointestinal hemorrhage, unspecified Status: Resolved Assessment and Plan: Worsening anemia. Monitor levels. Hypokalemia. KCl replacement. Managed per perl programmer. (3) Pacemaker: Code(s): Z95.0 - Presence of cardiac pacemaker Status: Acute Assessment and Plan: Stable. EKG post op shows ventricular paced rhythm which is OK. (4) CAD (coronary artery disease), autologous vein bypass graft: Code(s): I25.810 - Atherosclerosis of coronary artery bypass graft(s) without angina pectoris Status: Acute Assessment and Plan: Resume Pravastatin 20 mg daily (home medication) when able to take PO medications. (5) Paroxysmal atrial flutter: Code(s): I48.92 - Unspecified atrial flutter Status: Chronic Assessment and Plan: Stable. [id number] 5. On Xarelto for this as a MICHELLE on 12/17/17 prior to cardioversion showed left atrial appendage thrombus. May hold Xarelto especially with GI bleed and may need to have surgery. No need for heparin drip. We will reconsider anticoagulation in near future. DVT prophylaxis. Will sign off and please call with questions or change in clinical status. (6) Diastolic dysfunction: Code(s): I51.89 - Other ill-defined heart diseases Status: Acute Assessment and Plan: Stable. May give IVF due to septic shock but be cautious regarding fluid overload as she was on Furosemide 40 mg PO daily as home medication. Subjective Date/time seen: 11/01/20 09:32 Patient reports left ear ache. No chest pain or sob. No abdominal pain at this moment. Exam Const: General: cooperative, healthy appearing and comfortable Resp: Auscultation: clear to auscultation bilaterally, no crackles, no rales, no rhonchi and no wheezes Cardio: Jugular venous distension: no JVD Rate: regular rate Rhythm: regular rhythm Heart sounds: no murmurs Peripheral pulses: dorsalis pedis present GI: GI Palp: Yes abdominal tenderness and Yes Soft to palpation Neuro: General: oriented to person, oriented to place and oriented to time Extrem: Right lower extremity: no edema Left lower extremity: no edema Objective Data Vital Signs Vital Signs: Vital Signs - 24 hr 10/31/20 09:44 10/31/20 13:44 10/31/20 13:45 Temperature 98 F Pulse Rate 67 70 70 Respiratory Rate 14 20 Blood Pressure 143/61 H 146/56 H Pulse Oximetry 100 100 10/31/20 14:00 10/31/20 14:15 10/31/20 14:30 Temperature Pulse Rate 70 70 70 Respiratory Rate 16 14 17 Blood Pressure 146/55 H 156/56 H 162/60 H Pulse Oximetry 100 100 100 10/31/20 14:45 10/31/20 14:55 10/31/20 15:11 Temperature 96.3 F L Pulse Rate 70 70 70 Respiratory Rate 17 16 17 Blood Pressure 152/57 H 145/55 H 145/78 H Pulse Oximetry 97 97 99 10/31/20 15:41 10/31/20 16:00 10/31/20 16:41 Temperature 96.4 F L Pulse Rate 70 70 70 Respiratory Rate 17 15 12 Blood Pressure 152/112 H 147/56 H 124/51 L Pulse Oximetry 99 100 100 10/31/20 18:00 10/31/20 20:00 10/31/20 20:15 Temperature 98.5 F Pulse Rate 70 70 70 Respiratory Rate 24 H 15 Blood Pressure 177/61 H 156/53 H Pulse Oximetry 100 94 10/31/20 22:00 10/31/20 22:34 11/01/20 00:00 Temperature 98.6 F Pulse Rate 70 70 94 Respiratory Rate 17 16 Blood Pressure 152/59 H 144/54 H Pulse Oximetry 99 94 11/01/20 03:08 11/01/20 04:00 11/01/20 05:00 Temperature 98.6 F Pulse Rate 70 70 70 Respiratory Rate 16 14 Blood Pressure 151/54 H 125/50 L Pulse Oximetry 94 99 11/01/20 06:00 11/01/20 08:00 Temperature 96.3 F L Pulse Rate 70 70 Respiratory Rate 12 13 Blood Pressure 140/52 L 133/51 L Pulse Oximetry 100 100 Intake/Output Intake/Output: Intake & Out
[2020-11-01 12:48] LABS: Glucose Point of Care 149 (65-105)
[2020-11-01] MEDS: MAGNESIUM HYDROXIDE SUSP 30 ML UDC FEED TUBE (12:48)
--- NOTE | 2020-11-01 13:10 | WPDCNINT ---
Assessment and Plan Assessment and plan (1) Colitis: Code(s): K52.9 - Noninfective gastroenteritis and colitis, unspecified Status: Acute Assessment and Plan: resolved (2) Acute renal failure (ARF): Qualifiers: Acute renal failure type: unspecified Qualified Code(s): N17.9 - Acute kidney failure, unspecified Code(s): N17.9 - Acute kidney failure, unspecified Status: Acute Assessment and Plan: Resolved (3) Sepsis: Qualifiers: Acute renal failure type: unspecified Sepsis acute organ dysfunction status: with acute organ dysfunction Sepsis type: sepsis due to unspecified organism Severe sepsis acute organ dysfunction type: acute renal failure Severe sepsis shock status: with septic shock Qualified Code(s): A41.9 - Sepsis, unspecified organism; R65.21 - Severe sepsis with septic shock; N17.9 - Acute kidney failure, unspecified Code(s): A41.9 - Sepsis, unspecified organism Status: Acute (4) Paroxysmal atrial flutter: Code(s): I48.92 - Unspecified atrial flutter Status: Chronic Assessment and Plan: Being managed by Cardiology (5) Coronary artery disease: Code(s): I25.10 - Atherosclerotic heart disease of [place] coronary artery without angina pectoris Status: Chronic (6) Small bowel obstruction due to adhesions: Code(s): K56.50 - Intestinal adhesions [bands], unspecified as to partial versus complete obstruction Status: Acute Assessment and Plan: Status post lysis of adhesions. No apparent postoperative complications. Bowel sounds are present but sluggish. Her NG tube remains in place with minimal drainage. Additional Plan Code Status: full code Spoke to Dr. Cooper today A total of 34 minutes of critical care time was preformed excluding all procedures Sales Planning Analyst Consult Note Consult date: 11/01/20 Time Seen: 09:30 HPI: Dinorah Thorpe is a 85 year old female directly admitted from [facility] for higher level of care. Pt complains of abdominal pain, diarrhea and nausea on/ off for one month. She has a history of diabetes, hypothyroidism, history of CAD with CABG has a left-sided pacemaker history of CHF and hyperlipidemia. On admission septic shock secondary to infective colitis or ischemic colitis was considered, pt still having abdominal tenderness. sepsis has improved, pt can be transferred to medical floor. She developed a small-bowel obstruction that did not improve with conservative therapy and was taken for a laparoscopy and lysis of adhesions yesterday. She did quite well and was extubated immediately post procedure but was brought to the intensive care unit for closer monitoring overnight. This morning her only complaint is left ear pain she denies any abdominal pain and is starting to have some bowel sounds. Her vitals are stable. 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 CKD (chronic kidney disease) stage 3, GFR 30-59 ml/min Closed head injury Congestive heart failure Contusion of right shoulder Coronary artery disease Diabetes type 2, controlled Diarrhea Dysphagia Fall (~07/22/19) History of esophageal dilatation History of pacemaker History of TIA (transient ischemic attack) and stroke Hyperlipidemia associated with type 2 diabetes mellitus Hypertension associated with stage 3 chronic kidney disease due to type 2 diabetes mellitus Hyponatremia Hypothyroidism Paroxysmal atrial flutter Peripheral sensory neuropathy due to type 2 diabetes mellitus Rectal bleeding Schatzki's ring of distal esophagus Trigger finger, right middle finger Surgical History Surgical History (Reviewe
--- NOTE | 2020-11-01 14:08 | PCPTNOTE ---
patient had diagnositic laparoscopy today, will resume therapy tomorrow as appropriate
--- NOTE | 2020-11-01 14:27 | PCPTNOTE ---
left juglular triple lumen placed on [id number]
--- NOTE | 2020-11-01 14:37 | PC.NURSE ---
This patient, Dinorah Thorpe, was transferred to [facility] via bed on 11/01/20 at 1428. Personal belongings sent with patient. Report given to SALVADOR Whyte at bedside. Appropriate documentation sent with patient.
--- NOTE | 2020-11-01 14:43 | PCPTNOTE ---
patient just transferred to IMU room 212...given pain meds upon arrival...check with patient who declined therapy until tomorrow...will re-eval tomorrow as able
--- NOTE | 2020-11-01 14:43 | PCOTNOTE ---
OT re-assessment attempted this date, however, patient declining therapy at this time stating that she is in too much pain and too tired. Patient continued to decline despite encouragement. Agreeable to working with therapy tomorrow.
[2020-11-01 17:28] LABS: Glucose Point of Care 216 (65-105)
--- NOTE | 2020-11-01 19:08 | PM.PNGS ---
Progress Note: A&P Assessment and Plan (1) Acute colitis: Code(s): K52.9 - Noninfective gastroenteritis and colitis, unspecified Status: Acute Assessment and Plan: CTA on 10/28 showed descending and rectosigmoid colitis with no evidence of ischemia, and interval development of a small bowel obstruction with distinct transition point in the mid ileum. Small-bowel follow-through showed the dye did not go through. Therefore, patient had surgical intervention yesterday. See op note. Currently NPO. Continue TPN via [place] line. Vitals and respiratory status have been stable so patient will move out of ICU to IMU for a day or 2. Agree with follow-up cardiology consultation to consider when to restart anticoagulation since no further surgery is now considered. Since patient has some bowel sounds and not much out the NG will give 1 dose milk magnesia down the to with to our clamp of the tube and then possibly consider removal of the tube tomorrow if bowel sounds are good there is no nausea and there is minimal L2 to. May be able do this earlier patient has a bowel movement. Continue Imipenem (day 11). Will plan to probably do for 5 days of postoperative antibiotics in view of the inflammation seen along the left colon at the time of surgery. WBC down today. Continue dulcolax supp daily. (2) Ileus: Code(s): K56.7 - Ileus, unspecified Status: Acute Assessment and Plan: Continue TPN and bowel rest. See plan above. Additional Plan Discussed the plan of care with Dr. Wilhelm and marketing services manager. Subjective Subjective Date/Time Seen: 11/01/20 19:08 Post Op day: 1 (Status/post lysis of adhesions with release of small-bowel obstruction.) Interval history: patient is sleeping when I entered the room. Today she states the only thing bothering is some pain in her left ear. Pain in the abdomen is not bad. She has not noticed passing any bowel movement or flatus. Nurse reports not much out the NG overnight ( about 100 cc). Review of Systems Review of Systems: All systems reviewed & are unremarkable except as noted in HPI and below Constitutional: Constitutional: Reports as per HPI, Denies anorexia, Denies chills, Denies fatigue, Denies fever(s), Denies headache(s), Reports increased appetite, Reports lethargy and Reports weakness (generalized) Eyes: Eyes: Reports no additional eye complaints, Denies change in vision and Denies loss of vision ENT: Reports Normal hearing present, Denies dizziness and Denies headache(s) Comments: C/O of some pain in the left ear. States she is periodically had this in the past uses drops at home with the happens. Cardiovascular: Cardiovascular: Reports no additional cardiovascular complaints, Denies chest pain at rest, Denies syncope, Denies rapid heart rate, Denies leg edema, Denies lightheadedness, Denies radiating jaw, neck or arm pain, Denies dyspnea and Denies orthopnea Respiratory: Respiratory: Reports no additional respiratory complaints, Denies cough, Denies dyspnea and Denies wheezing Gastrointestinal: Gastrointestinal: Reports as per HPI, Reports no additional gastrointestinal complaints, Denies abdominal pain, Denies melena, Denies early satiety, Denies diarrhea, Denies nausea and Denies vomiting Genitourinary: Genitourinary: Denies hematuria and Denies dysuria Musculoskeletal: Musculoskeletal: Reports no additional musculoskeletal complaints, Denies deformity, Denies joint swelling, Denies radiating pain into limb and Denies tingling Integumentary/Breasts: Skin/Breast: Denies pruritus, Denies lesions, Denies erythema, Denies wounds and Denies jaundice Neurologic: Reports system reviewed and no additional complaints, except as documented, Reports Normal hearing present, Denies confusion, Denies dizziness, Denies syncope, Denies headache(s), Denies loss of vision, Denies tingling, Denies tremor(s) and Reports weakness (generalized) Psychiatric: Psychiatric: D
[2020-11-01] MEDS: FAT EMULSIONS IV 20% 250 ML 21 ML IVPB (21:35)
[2020-11-01] MEDS: AMINO ACIDS 5%/D15W/E-LYTES/CA 2,000 ML with MULTIVITAMINS-12 INJ VIAL 1 2.5 ML, MULTIV... 40 ML IV CONT (21:35)
[2020-11-01] MEDS: INSULIN GLARGINE (*BKC) 100 UNITS/ML 9 UNITS SUB-Q (21:36)
[2020-11-01] MEDS: AMITRIPTYLINE HCL 25 MG TABLET 50 MG PO (21:36)
[2020-11-01 23:17] LABS: Glucose Point of Care 198 (65-105)
[2020-11-02] VITALS (16 sets, daily range): BP systolic 101–131; BP diastolic 44–52; PULSE 70–71; RESP 12–24; TEMP 36.3–36.6; O2SAT 94–100
[2020-11-02] MEDS: CENTRAL LINE FLUSH 10 ML IV PUSH ×4 (05:35→21:08)
[2020-11-02 06:03] LABS: Glucose Point of Care 225 (65-105)
[2020-11-02] MEDS: INSULIN ASPART (*BKC) 100 UNITS/ML SUB-Q (06:04)
[2020-11-02 06:27] LABS: Basophils Percent Auto 0.3 % (0.2-1.2); Eosinophils Absolute Auto 0.1 K/mm3 (0-0.3); Eosinophils Percent Auto 0.6 % (0-4.4); Hematocrit 31.3 % (37.0-47.0); Immature Granulocyte Absolute 0.06 K/mm3 (0.00-0.031); Immature Granulocyte Percent A 0.6 % (0-0.5); Lymphocytes Absolute Auto 1.32 K/mm3 (0.9-3.2); Lymphocytes Percent Auto 14.2 % (18.3-44.2); Mean Corpuscular HGB Conc 31.9 g/dl (32-36); Mean Corpuscular Hemoglobin 31.2 pg (26-34); Mean Corpuscular Volume 97.5 fl (80-100); Mean Platelet Volume 11.1 fl (7.4-10.4); Monocytes Absolute Auto 0.7 K/mm3 (0.1-0.6); Monocytes Percent Auto 7.7 % (2.6-8.5); Neutrophils Absolute Auto 7.1 K/mm3 (1.3-6.7); Neutrophils Percent Auto 76.6 % (45.5-73.1); Platelet Count Result 229 k/mm3 (150-375); Red Blood Count 3.21 M/mm3 (4.2-5.4); Red Cell Distribution Width 12.7 % (11.5-14.5); White Blood Count 9.3 K/mm3 (4.5-10.0)
[2020-11-02 06:35] LABS: INR 1.1; Prothrombin Time 14.8 Seconds (11.1-14.7)
[2020-11-02 06:36] LABS: Partial Thromboplastin Time 32.3 SECONDS (22.3-36.8)
[2020-11-02 07:20] LABS: Alanine Aminotransferase 23 U/L (4-35); Albumin Level 2.2 g/dL (3.5-5.1); Alkaline Phosphatase 107 U/L (38-126); Anion Gap 2 mmol/L (8-16); Aspartate Amino Transferase 29 U/L (14-36); Bilirubin,Total 0.2 mg/dL (0.2-1.3); Blood Urea Nitrogen 18 mg/dL (7-17); Calcium 7.4 mg/dL (8.4-10.2); Carbon Dioxide 26 mmol/L (22-30); Chloride 103 mmol/L (98-107); Estimated CRCL calculation 52 ml/min; Estimated Glomerular Filt Rate > 60; Glucose 242 mg/dL (65-105); Magnesium 1.6 mg/dL (1.6-2.3); Phosphorus 2.3 mg/dL (2.5-4.5); Potassium 4.1 mmol/L (3.4-5.0); Sodium 131 mmol/L (137-145)
[2020-11-02 07:30] LABS: Transferrin 115 mg/dL (206-381)
--- NOTE | 2020-11-02 09:27 | PM.PNGS ---
Progress Note: A&P Assessment and Plan (1) Acute colitis: Code(s): K52.9 - Noninfective gastroenteritis and colitis, unspecified Status: Acute Assessment and Plan: CTA on 10/28 showed descending and rectosigmoid colitis with no evidence of ischemia, and interval development of a small bowel obstruction with distinct transition point in the mid ileum. Small-bowel follow-through showed the dye did not go through. Therefore, patient had surgical intervention yesterday. See op note. Currently NPO with an NG post-op. Continue TPN via Jordan line. Vitals and respiratory status have been stable in IMU. If continues to do well may be able to move to the floor tomorrow. Agree with follow-up cardiology consultation to consider when to restart anticoagulation since no further surgery is now considered. Continue Imipenem (day 12). Will plan to probably do for 5 days of postoperative antibiotics in view of the inflammation seen along the left colon at the time of surgery. WBC down today. Continue dulcolax supp daily. Since patient having stools will clamp NG for 3 hours and return to Low intermittant suction for 1 hour. If less than 300 cc out will have the nurse remove the NG today and start her on clear liquids. (2) Ileus: Code(s): K56.7 - Ileus, unspecified Status: Acute Assessment and Plan: Continue TPN For now and see how she tolerates her diet for the next day or 2 and then we can probably stop this. Additional Plan Discussed the plan of care with Dr. Wilhelm. Subjective Subjective Date/Time Seen: 11/02/20 08:27 Patient lying in bed when I came to visit. She states she is not nauseated. Has some mild abdominal pain and also complains of some burning in the buttock area. Nurse reports patient had 3 loose stools that were somewhat incontinent and had to be cleaned up overnight. They are applying lotion to her perineum. PT came in to work with the patient while I was there and I encouraged her to try to be up to the chair and try standing today. Post Op day: 2 ( Improving status post laparoscopic release of small-bowel obstruction.) Patient reports: no new complaints Review of Systems Review of Systems: All systems reviewed & are unremarkable except as noted in HPI and below Constitutional: Constitutional: Reports as per HPI, Denies anorexia, Denies chills, Denies fatigue, Denies fever(s), Denies headache(s), Reports increased appetite, Reports lethargy and Reports weakness (generalized) Eyes: Eyes: Reports no additional eye complaints, Denies change in vision and Denies loss of vision ENT: Reports Normal hearing present, Denies dizziness and Denies headache(s) Cardiovascular: Cardiovascular: Reports no additional cardiovascular complaints, Denies chest pain at rest, Denies syncope, Denies rapid heart rate, Denies leg edema, Denies lightheadedness, Denies radiating jaw, neck or arm pain, Denies dyspnea and Denies orthopnea Respiratory: Respiratory: Reports no additional respiratory complaints, Denies cough, Denies dyspnea and Denies wheezing Gastrointestinal: Gastrointestinal: Reports as per HPI, Reports no additional gastrointestinal complaints, Denies abdominal pain, Denies melena, Denies early satiety, Denies diarrhea, Denies nausea and Denies vomiting Genitourinary: Genitourinary: Denies hematuria and Denies dysuria Musculoskeletal: Musculoskeletal: Reports no additional musculoskeletal complaints, Denies deformity, Denies joint swelling, Denies radiating pain into limb and Denies tingling Integumentary/Breasts: Skin/Breast: Denies pruritus, Denies lesions, Denies erythema, Denies wounds and Denies jaundice Neurologic: Reports system reviewed and no additional complaints, except as documented, Reports Normal hearing present, Denies confusion, Denies dizziness, Denies syncope, Denies headache(s), Denies loss of vision, Denies tingling, Denies tremor(s) and Reports weakness (generaliz
[2020-11-02] MEDS: PANTOPRAZOLE SODIUM IV 40 MG VIAL IV PUSH (10:32)
[2020-11-02] MEDS: ENOXAPARIN 40 MG/0.4 ML SYRINGE SUB-Q (10:32)
[2020-11-02] MEDS: MAGNESIUM OXIDE 400 MG TABLET PO (10:32)
[2020-11-02] MEDS: BISACODYL 10 MG SUPPOSITORY RECTAL (10:32)
--- NOTE | 2020-11-02 11:10 | PCOTNOTE ---
Attempted OT re-evaluation, per RN patient is finally asleep and resting requested we attempt OT in afternoon, will follow and attempt at later time.
[2020-11-02 11:31] LABS: Glucose Point of Care 199 (65-105)
[2020-11-02 16:10] LABS: Glucose Point of Care 195 (65-105)
--- NOTE | 2020-11-02 16:17 | PM.IMPN ---
Progress Note: A&P Assessment and Plan (1) Paroxysmal atrial flutter: Code(s): I48.92 - Unspecified atrial flutter Status: Chronic Assessment and Plan: 11/02/20 16:17 85 year old female directly admitted from [facility] for higher level of care. Pt complains of abdominal pain, diarrhea and nausea on/ off for one month. She has a history of diabetes, hypothyroidism, history of CAD with CABG has a left-sided pacemaker history of CHF and hyperlipidemia. On admission septic shock secondary to infective colitis or ischemic colitis was considered, pt still having abdominal tenderness. sepsis has improved, pt can be transferred to medical floor. Seen by surgery and ICU and cardiology, abdominal pain getting better, pt has started eating today Patient is 85-year-old female admitted with colitis being treated with imipenem, patient is on clear liquid able to tolerate patient was seen by surgery team and advanced her diet to full liquid as tolerated, patient also complains of right-sided chest after swallowing any eating seen by surgery recommended to monitor and further recommendation to follow. 10/26 85-year-old female admitted with colitis being treated with imipenem and on 10/25 surgery team and advanced her diet to full liquid, patient stated able to tolerate her diet, her right-sided abdominal pain is also him, she does have loose BM, she denies any fever or chills, patient will be seen by surgery team and further recommendation to follow. 10/27 85-year-old female admitted with colitis being treated with imipenem ( day 7th) and on 10/25 surgery team and advanced her diet to full liquid, however last night patient had an episode of emesis and KUB showed ileus however patient does have a bowel movement consisting of yellow mucus seen by surgery service today DC full liquid and place back clear liquid and monitor try to avoid NG tube will continue to monitor and further recommendation to follow, history of diabetes currently patient on moderate dose sliding scale, will add lantus 5 units at bed time and continue moderate dose sliding scale. Will continue to monitor and further recommendation to follow 10/28 85-year-old female admitted with colitis being treated with imipenem ( day 8th) today patient complains abdominal pain and nausea as well as belching, passing gas minimally, unable to tolerate p.o., denies any fever or chills, discussed with surgery team will place the patient NPO, and gently hydrate, to further evaluate patient will have CT scan of the abdomen and pelvis and further recommendation to follow, 10/29 85-year-old female admitted with colitis being treated with imipenem ( day 9th) on 10/27 patient had emesis KUB showed ileus, and patient was seen by by surgery team had a CTA abdominal did not show any thrombosis or ischemia, Interval development of mid ileal small bowel obstruction. Today patient still complains of abdominal but no vomiting patient seen by surgery team today was started on TPN, decided against NG tube as patient has not had emesis, KUB today showed Persistently dilated small bowel, better appreciated on yesterday's CT. Will follow recommendation from surgery service. 10/30 85-year-old female admitted with colitis being treated with imipenem ( day 10th), patient's symptoms are not improving she has not had any nausea or vomiting however patient is not passing any gas and her abdomen is quite distended and patient appears to be in pain, discussed with Dr. Cooepr, will place NG tube to decompress and do the a small-bowel follow-through afterward, if there is no obstruction will continue to monitor if there is obstruction patient may need surgical evaluation and further recommendation to follow. 10/31 85-year-old female admitted with colitis being treated with imipenem ( day 11th), on 10/30 patient's symptoms were not improving she had not had any nausea or vomiting however patient was not passing any gas and her abdomen
[2020-11-02] MEDS: SODIUM CHLORIDE 0.9% IV 1,000 ML 60 ML IV CONT (17:35)
[2020-11-02 19:37] LABS: Triglycerides 195 mg/dL (<150)
[2020-11-02] MEDS: AMINO ACIDS 5%/D15W/E-LYTES/CA 2,000 ML with MULTIVITAMINS-12 INJ VIAL 1 2.5 ML, MULTIV... 40 ML IV CONT (21:07)
[2020-11-02] MEDS: FAT EMULSIONS IV 20% 250 ML 21 ML IVPB (21:07)
[2020-11-02] MEDS: INSULIN GLARGINE (*BKC) 100 UNITS/ML 9 UNITS SUB-Q (21:08)
[2020-11-02] MEDS: AMITRIPTYLINE HCL 25 MG TABLET 50 MG PO (21:08)
[2020-11-02 23:49] LABS: Glucose Point of Care 180 (65-105)
[2020-11-03] VITALS (8 sets, daily range): BP systolic 104–142; BP diastolic 49–62; PULSE 70–84; RESP 18; TEMP 36–37.1; O2SAT 94–98
[2020-11-03 05:15] LABS: Glucose Point of Care 196 (65-105)
[2020-11-03] MEDS: CENTRAL LINE FLUSH 10 ML IV PUSH ×4 (05:19→21:23)
[2020-11-03 05:24] LABS: Hematocrit 26.2 % (37.0-47.0); Hemoglobin 8.5 g/dL (12.0-15.0); Mean Corpuscular HGB Conc 32.4 g/dl (32-36); Mean Corpuscular Hemoglobin 31.4 pg (26-34); Mean Corpuscular Volume 96.7 fl (80-100); Mean Platelet Volume 10.9 fl (7.4-10.4); Platelet Count Result 178 k/mm3 (150-375); Red Blood Count 2.71 M/mm3 (4.2-5.4); Red Cell Distribution Width 12.9 % (11.5-14.5); White Blood Count 6.7 K/mm3 (4.5-10.0)
[2020-11-03 05:36] LABS: Albumin Level 2.1 g/dL (3.5-5.1); Anion Gap 0 mmol/L (8-16); Blood Urea Nitrogen 15 mg/dL (7-17); Calcium 7.4 mg/dL (8.4-10.2); Carbon Dioxide 26 mmol/L (22-30); Chloride 104 mmol/L (98-107); Estimated CRCL calculation 61 ml/min; Estimated Glomerular Filt Rate > 60; Glucose 201 mg/dL (65-105); Phosphorus 2.1 mg/dL (2.5-4.5); Potassium 3.4 mmol/L (3.4-5.0); Sodium 130 mmol/L (137-145)
--- NOTE | 2020-11-03 07:40 | PM.PNGS ---
Progress Note: A&P Assessment and Plan (1) Acute colitis: Code(s): K52.9 - Noninfective gastroenteritis and colitis, unspecified Status: Acute Assessment and Plan: CTA on 10/28 showed descending and rectosigmoid colitis with no evidence of ischemia, and interval development of a small bowel obstruction with distinct transition point in the mid ileum. Small-bowel follow-through showed the dye did not go through. Therefore, patient had surgical intervention yesterday. See op note. Started liquids on11/02 I will Continue TPN via Jordan line until tolerating the diabetic diet for a day or two. Vitals and respiratory status have been stable in IMU. If continues to do well may be able to move to the floor today. Agree with follow-up cardiology consultation to consider when to restart anticoagulation since no further surgery is now considered. Continue Imipenem (day 13). Will plan to probably do for 5 days of postoperative antibiotics in view of the inflammation seen along the left colon at the time of surgery. WBC down today. Continue dulcolax supp daily. Will think about starting Flagyl po tomorrow with a plan to continue 1 week pastthe end of the IV Imipenem. Pt started on her clear liquids yesterdy PM. (2) Ileus: Code(s): K56.7 - Ileus, unspecified Status: Acute Assessment and Plan: Continue TPN for now and see how she tolerates her diet for the next day or 2 and then we can probably stop this. Additional Plan Discussed the plan of care with Dr. Wilhelm. Possibly move to reg floor today (11/03) Subjective Subjective Date/Time Seen: 11/03/20 07:40 Post Op day: 3 (S/P Laparoscopic lysis adhesions and release of SBO.) Interval history: Pt lying in bed when I entered the room. Pt states I just woke up band I feel OK . Pt denies abd pain. Denies nausea. Nurse reports 2 loose incontinent stools overnight. Review of Systems Review of Systems: All systems reviewed & are unremarkable except as noted in HPI and below Constitutional: Constitutional: Reports as per HPI, Denies anorexia, Denies chills, Denies fatigue, Denies fever(s), Denies headache(s), Reports increased appetite, Reports lethargy and Reports weakness (generalized) Eyes: Eyes: Reports no additional eye complaints, Denies change in vision and Denies loss of vision ENT: Reports Normal hearing present, Denies dizziness and Denies headache(s) Cardiovascular: Cardiovascular: Reports no additional cardiovascular complaints, Denies chest pain at rest, Denies syncope, Denies rapid heart rate, Denies leg edema, Denies lightheadedness, Denies radiating jaw, neck or arm pain, Denies dyspnea and Denies orthopnea Respiratory: Respiratory: Reports no additional respiratory complaints, Denies cough, Denies dyspnea and Denies wheezing Gastrointestinal: Gastrointestinal: Reports as per HPI, Reports no additional gastrointestinal complaints, Denies abdominal pain, Denies melena, Denies early satiety, Denies diarrhea, Denies nausea and Denies vomiting Genitourinary: Genitourinary: Denies hematuria and Denies dysuria Musculoskeletal: Musculoskeletal: Reports no additional musculoskeletal complaints, Denies deformity, Denies joint swelling, Denies radiating pain into limb and Denies tingling Psychiatric: Psychiatric: Denies anxiety, Denies confusion and Denies depression Endocrine: Endocrine: Denies fatigue Allergic/Immunologic: Allergic/Immunologic: Denies wheezing Exam Const: General: comfortable and no acute distress; No confusion Nutritional Appearance: average body habitus Orientation/consciousness: patient oriented x3 and No confusion Limitations: no limitations HENMT: Head: normal to inspection, normocephalic and atraumatic Ears: hearing grossly normal bilaterally and external ears normal General nose exam: Normal external nose present Mouth: Yes Normal oral and palatal mucosa present and Yes moist mucous membranes Eyes: Gener
[2020-11-03 08:07] LABS: Glucose Point of Care 212 (65-105)
[2020-11-03] MEDS: SODIUM CHLORIDE 0.9% IV 1,000 ML 60 ML IV CONT (10:25)
[2020-11-03] MEDS: PSYLLIUM POWDER PACKET 1 PACKET PO (10:25)
[2020-11-03] MEDS: POTASSIUM CHLORIDE 20 MEQ TABLET 40 MEQ PO (10:27)
[2020-11-03] MEDS: PANTOPRAZOLE 40 MG TABLET PO (10:28)
[2020-11-03] MEDS: ENOXAPARIN 40 MG/0.4 ML SYRINGE SUB-Q (10:28)
[2020-11-03] MEDS: BISACODYL 10 MG SUPPOSITORY RECTAL (10:32)
[2020-11-03] MEDS: MAGNESIUM OXIDE 400 MG TABLET PO (10:33)
--- NOTE | 2020-11-03 11:04 | PCDIET ---
Nutrition Follow-Up Complete: Nutrition Diagnosis: Altered GI function related to colitis as evidenced by NPO. Nutrition Goal: Meet estimated nutritional needs. Goal in progress. Diet has advanced to clear liquid with 0-75% intake thus far. Patient to receive Ensure Clear (240kcal, 8g protein) with meals while on clear liquid diet. Continues on Clinimix 5/15 E at 40mL/hr with 250mL 20% lipids daily for 1182kcal and 48g protein per day. Recommend continuing PN until diet advanced/tolerated with adequate intake. Last recorded weight is 57.3 kg which is down from last review, but up from admission. Bowel Motility: 2 loose stools overnight, per MD note. Labs Reviewed: Hgb (8.5), Hct (26.2), Glu (201), Cr (0.5), Na (130), Alb (2.1), Gina Ca (8.92), PO4 (2.4), PreAlb (7) Meds Noted: Primaxin, Lantus, Mag-Ox, KCl, Protonix, Dulcolax, Metamucil, NS at 60mL/hr Additional Notes: Buttocks macerated. JONH drain to abdomen POD #3 s/p lap EAGLE and release of SBO. Will continue to monitor with same goal. Nutrition Monitoring and Evaluation: Will monitor every Monday/Monday.
[2020-11-03 12:04] LABS: Glucose Point of Care 266 (65-105)
[2020-11-03] MEDS: INSULIN ASPART (*BKC) 100 UNITS/ML SUB-Q ×2 (12:26→17:57)
--- NOTE | 2020-11-03 14:45 | PCOTNOTE ---
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 Will continue plan of care tomorrow, 11/04/2020.
--- NOTE | 2020-11-03 16:29 | P.PNIM_ITS ---
Progress Note: A&P Assessment and Plan (1) Paroxysmal atrial flutter: Code(s): I48.92 - Unspecified atrial flutter Status: Chronic Assessment and Plan: 11/02/20 16:17 85 year old female directly admitted from [facility] for higher level of care. Pt complains of abdominal pain, diarrhea and nausea on/ off for one month. She has a history of diabetes, hypothyroidism, history of CAD with CABG has a left-sided pacemaker history of CHF and hyperlipidemia. On admission septic shock secondary to infective colitis or ischemic colitis was considered, pt still having abdominal tenderness. sepsis has improved, pt can be transferred to medical floor. Seen by surgery and ICU and cardiology, abdominal pain getting better, pt has started eating today Patient is 85-year-old female admitted with colitis being treated with imipenem, patient is on clear liquid able to tolerate patient was seen by surgery team and advanced her diet to full liquid as tolerated, patient also complains of right- sided chest after swallowing any eating seen by surgery recommended to monitor and further recommendation to follow. 10/26 85-year-old female admitted with colitis being treated with imipenem and on 10/25 surgery team and advanced her diet to full liquid, patient stated able to tolerate her diet, her right-sided abdominal pain is also him, she does have loose BM, she denies any fever or chills, patient will be seen by surgery team and further recommendation to follow. 10/27 85-year-old female admitted with colitis being treated with imipenem ( day 7th) and on 10/25 surgery team and advanced her diet to full liquid, however last night patient had an episode of emesis and KUB showed ileus however patient does have a bowel movement consisting of yellow mucus seen by surgery service today DC full liquid and place back clear liquid and monitor try to avoid NG tube will continue to monitor and further recommendation to follow, history of diabetes currently patient on moderate dose sliding scale, will add lantus 5 units at bed time and continue moderate dose sliding scale. Will continue to monitor and further recommendation to follow 10/28 85-year-old female admitted with colitis being treated with imipenem ( day 8th) today patient complains abdominal pain and nausea as well as belching, passing gas minimally, unable to tolerate p.o., denies any fever or chills, discussed with surgery team will place the patient NPO, and gently hydrate, to further evaluate patient will have CT scan of the abdomen and pelvis and further recommendation to follow, 10/29 85-year-old female admitted with colitis being treated with imipenem ( day 9th) on 10/27 patient had emesis KUB showed ileus, and patient was seen by by surgery team had a CTA abdominal did not show any thrombosis or ischemia, Interval development of mid ileal small bowel obstruction. Today patient still complains of abdominal but no vomiting patient seen by surgery team today was started on TPN, decided against NG tube as patient has not had emesis, KUB today showed Persistently dilated small bowel, better appreciated on yesterday's CT. Will follow recommendation from surgery service. 10/30 85-year-old female admitted with colitis being treated with imipenem ( day 10th), patient's symptoms are not improving she has not had any nausea or vomiting however patient is not passing any gas and her abdomen is quite distended and patient appears to be in pain, discussed with Dr. Cooper, will place NG tube to decompress and do the a small-bowel follow-through afterward, if there is no obstruction will continue to monitor if there is obstruction patient may need surgical evaluation and further recommendation to follow. 10/31 84-
[2020-11-03 16:38] LABS: Glucose Point of Care 244 (65-105)
--- NOTE | 2020-11-03 19:36 | PC.NURSE ---
1045- changed to med/surg status as ordered
[2020-11-03] MEDS: AMITRIPTYLINE HCL 25 MG TABLET 50 MG PO (21:22)
[2020-11-03] MEDS: AMINO ACIDS 5%/D15W/E-LYTES/CA 2,000 ML with MULTIVITAMINS-12 INJ VIAL 1 2.5 ML, MULTIV... 40 ML IV CONT (21:22)
[2020-11-03] MEDS: FAT EMULSIONS IV 20% 250 ML 21 ML IVPB (21:22)
[2020-11-03] MEDS: INSULIN GLARGINE (*BKC) 100 UNITS/ML 9 UNITS SUB-Q (21:23)
[2020-11-03] MEDS: ACETAMINOPHEN 500 MG TABLET 1000 MG PO (21:42)
[2020-11-04] VITALS: RESP 18
[2020-11-04 00:21] LABS: Glucose Point of Care 166 (65-105)
[2020-11-04 04:00] VITALS: BP 139/52; PULSE 72; RESP 18; TEMP 35.8; O2SAT 100
[2020-11-04] MEDS: CENTRAL LINE FLUSH 10 ML IV PUSH ×4 (06:34→20:34)
[2020-11-04] MEDS: SODIUM CHLORIDE 0.9% IV 1,000 ML 60 ML IV CONT (06:34)
[2020-11-04 07:26] LABS: Albumin Level 2.3 g/dL (3.5-5.1); Anion Gap 3 mmol/L (8-16); Blood Urea Nitrogen 13 mg/dL (7-17); Calcium 7.6 mg/dL (8.4-10.2); Carbon Dioxide 21 mmol/L (22-30); Chloride 107 mmol/L (98-107); Estimated CRCL calculation 61 ml/min; Estimated Glomerular Filt Rate > 60; Glucose 177 mg/dL (65-105); Phosphorus 2.3 mg/dL (2.5-4.5); Potassium 4.3 mmol/L (3.4-5.0); Sodium 131 mmol/L (137-145)
[2020-11-04 08:00] VITALS: BP 153/61; PULSE 69; RESP 16; TEMP 36.2; O2SAT 100
[2020-11-04 08:04] LABS: Hematocrit 29.8 % (37.0-47.0); Hemoglobin 9.7 g/dL (12.0-15.0); Mean Corpuscular HGB Conc 32.6 g/dl (32-36); Mean Corpuscular Hemoglobin 31.3 pg (26-34); Mean Corpuscular Volume 96.1 fl (80-100); Mean Platelet Volume 10.9 fl (7.4-10.4); Platelet Count Result 213 k/mm3 (150-375); White Blood Count 7.6 K/mm3 (4.5-10.0)
[2020-11-04] MEDS: ENOXAPARIN 40 MG/0.4 ML SYRINGE SUB-Q (08:36)
[2020-11-04] MEDS: MAGNESIUM OXIDE 400 MG TABLET PO (08:37)
[2020-11-04] MEDS: PSYLLIUM POWDER PACKET 1 PACKET PO (08:38)
[2020-11-04] MEDS: BISACODYL 10 MG SUPPOSITORY RECTAL (08:39)
[2020-11-04] MEDS: PANTOPRAZOLE 40 MG TABLET PO (08:39)
--- NOTE | 2020-11-04 10:36 | PM.PNGS ---
Progress Note: A&P Assessment and Plan (1) Acute colitis: Code(s): K52.9 - Noninfective gastroenteritis and colitis, unspecified Status: Acute Assessment and Plan: CTA on 10/28 showed descending and rectosigmoid colitis with no evidence of ischemia, and interval development of a small bowel obstruction with distinct transition point in the mid ileum. Small-bowel follow-through showed the dye did not go through. Therefore, patient had surgical intervention yesterday. See op note. Started liquids on11/02 I will Continue TPN via Jordan line until tolerating the diabetic diet for a day or two. Vitals and respiratory status have been stable in IMU. If continues to do well may be able to move to the floor today. Agree with follow-up cardiology consultation to consider when to restart anticoagulation since no further surgery is now considered. Continue Imipenem (day 14). Will plan to probably do for 5 days of postoperative antibiotics in view of the inflammation seen along the left colon at the time of surgery. WBC down today. Continue dulcolax supp daily. Will think about starting Flagyl po tomorrow with a plan to continue that 1 week past the end of the IV Imipenem to keep slightly longer treatment for the colitis. (2) Ileus: Code(s): K56.7 - Ileus, unspecified Status: Acute Assessment and Plan: will stop TPN after today's bag if she tolerates her diet today for breakfast and lunch. Additional Plan Possibly move to reg floor today (11/03) Subjective Subjective Date/Time Seen: 11/04/20 10:36 Patient lying in bed when I entered the room. She is otherwise doing well. Three bowel movements documented in the last 24 hours. She states she does not have abdominal pain. She could not remember what she ate for supper last night. States she did get up and walk with PT yesterday. I encouraged her to do more of this. Review of Systems Review of Systems: All systems reviewed & are unremarkable except as noted in HPI and below Constitutional: Constitutional: Reports as per HPI, Denies anorexia, Denies chills, Denies fatigue, Denies fever(s), Denies headache(s), Reports increased appetite, Reports lethargy and Reports weakness (generalized) Respiratory: Respiratory: Reports no additional respiratory complaints, Denies cough, Denies dyspnea and Denies wheezing Gastrointestinal: Gastrointestinal: Reports as per HPI, Reports no additional gastrointestinal complaints, Denies abdominal pain, Denies melena, Denies early satiety, Denies diarrhea, Denies nausea and Denies vomiting Genitourinary: Genitourinary: Denies hematuria and Denies dysuria Musculoskeletal: Musculoskeletal: Reports no additional musculoskeletal complaints, Denies deformity, Denies joint swelling, Denies radiating pain into limb and Denies tingling Integumentary/Breasts: Skin/Breast: Denies pruritus, Denies lesions, Denies erythema, Denies wounds and Denies jaundice Neurologic: Reports system reviewed and no additional complaints, except as documented, Reports Normal hearing present, Denies confusion, Denies dizziness, Denies syncope, Denies headache(s), Denies loss of vision, Denies tingling, Denies tremor(s) and Reports weakness (generalized) Psychiatric: Psychiatric: Denies anxiety, Denies confusion and Denies depression Endocrine: Endocrine: Denies fatigue Allergic/Immunologic: Allergic/Immunologic: Denies wheezing Exam Const: General: comfortable and no acute distress; No confusion Nutritional Appearance: average body habitus Orientation/consciousness: patient oriented x3 and No confusion Limitations: no limitations HENMT: Head: normal to inspection, normocephalic and atraumatic Ears: hearing grossly normal bilaterally and external ears normal General nose exam: Normal external nose present Mouth: Yes Normal oral and palatal mucosa present and Yes moist mucous membranes Eyes: General: appearance normal, both eyes
[2020-11-04 11:32] LABS: Glucose Point of Care 185 (65-105)
[2020-11-04 16:00] VITALS: BP 175/69; PULSE 70; RESP 16; TEMP 36.3; O2SAT 100
[2020-11-04 18:13] LABS: Glucose Point of Care 239 (65-105)
[2020-11-04] MEDS: INSULIN ASPART (*BKC) 100 UNITS/ML SUB-Q (18:18)
--- NOTE | 2020-11-04 18:44 | PC.NURSE ---
This patient, Dinorah Thorpe, was received from IMU on 11/04/20 at 1844. Patient/family oriented to unit policies and routines
[2020-11-04] MEDS: AMITRIPTYLINE HCL 25 MG TABLET 50 MG PO (20:34)
[2020-11-04] MEDS: INSULIN GLARGINE (*BKC) 100 UNITS/ML 9 UNITS SUB-Q (20:37)
[2020-11-04 21:36] LABS: Glucose Point of Care 244 (65-105)
[2020-11-04 21:41] VITALS: BP 137/51; PULSE 50; RESP 18; TEMP 36.3; O2SAT 90
[2020-11-04] MEDS: ACETAMINOPHEN 500 MG TABLET 1000 MG PO (22:21)
[2020-11-05] MEDS: SODIUM CHLORIDE 0.9% IV 1,000 ML 60 ML IV CONT (00:11)
[2020-11-05] MEDS: MORPHINE SULFATE (*CRX) 2 MG/ML INJ IV PUSH (00:15)
[2020-11-05] MEDS: CENTRAL LINE FLUSH 10 ML IV PUSH ×4 (05:21→22:00)
[2020-11-05 06:00] VITALS: BP 137/53; PULSE 70; RESP 16; TEMP 36.2; O2SAT 98
[2020-11-05 06:15] LABS: Hematocrit 26.4 % (37.0-47.0); Hemoglobin 8.3 g/dL (12.0-15.0); Mean Corpuscular HGB Conc 31.4 g/dl (32-36); Mean Corpuscular Hemoglobin 30.7 pg (26-34); Mean Corpuscular Volume 97.8 fl (80-100); Mean Platelet Volume 10.9 fl (7.4-10.4); Platelet Count Result 175 k/mm3 (150-375); Red Cell Distribution Width 12.8 % (11.5-14.5); White Blood Count 4.9 K/mm3 (4.5-10.0)
[2020-11-05 06:40] LABS: Alanine Aminotransferase 12 U/L (4-35); Alkaline Phosphatase 65 U/L (38-126); Anion Gap 0 mmol/L (8-16); Aspartate Amino Transferase 19 U/L (14-36); Bilirubin,Total 0.1 mg/dL (0.2-1.3); Blood Urea Nitrogen 11 mg/dL (7-17); Calcium 7.2 mg/dL (8.4-10.2); Carbon Dioxide 26 mmol/L (22-30); Chloride 106 mmol/L (98-107); Estimated CRCL calculation 61 ml/min; Estimated Glomerular Filt Rate > 60; Glucose 224 mg/dL (65-105); Magnesium 1.5 mg/dL (1.6-2.3); Phosphorus 2.4 mg/dL (2.5-4.5); Potassium 4.2 mmol/L (3.4-5.0); Sodium 132 mmol/L (137-145)
[2020-11-05 07:55] LABS: Glucose Point of Care 177 (65-105)
[2020-11-05] MEDS: ENOXAPARIN 40 MG/0.4 ML SYRINGE SUB-Q (09:20)
[2020-11-05] MEDS: PSYLLIUM POWDER PACKET 1 PACKET PO (09:21)
[2020-11-05] MEDS: MAGNESIUM OXIDE 400 MG TABLET PO (09:21)
[2020-11-05] MEDS: BISACODYL 10 MG SUPPOSITORY RECTAL (09:21)
[2020-11-05] MEDS: PANTOPRAZOLE 40 MG TABLET PO (09:22)
[2020-11-05] MEDS: ALTEPLASE 2 MG VIAL (CATHFLO) IV PUSH (11:18)
--- NOTE | 2020-11-05 11:21 | PCNFU ---
Nutrition Follow-Up Complete: Altered GI function as related to colitis as evidenced by NPO Goal: Meet estimated nutritional needs Progressing towards goal. We will continue current goal. Pt current nutrition is Low Fiber/DBCC. Last recorded weight is 62.5 kg, up from 56 kg. Bowel Motility:+BM reported 11/05 Labs Reviewed:Glu 224,Na 132,Alb 2.0 Meds Noted:Metamucil,Protonix,NovoLog, Mag ox, Lovenox, Lantus Additional Notes: Nutrition follow up. Spoke with patient today, she states to tolerating her low fiber/DBCC diet. Oral Intake: 50% of breakfast today. She states to not eating a lot of food at one time, diet was discussed. Agree with diet orders. Monitoring: Will monitor every 5 days.
--- NOTE | 2020-11-05 12:20 | PM.IMPN ---
Progress Note: A&P Assessment and Plan (1) Paroxysmal atrial flutter: Code(s): I48.92 - Unspecified atrial flutter Status: Chronic Assessment and Plan: Patient is 85-year-old female admitted with colitis being treated with imipenem, patient is on clear liquid able to tolerate patient was seen by surgery team and advanced her diet to full liquid as tolerated, patient also complains of right-sided chest after swallowing any eating seen by surgery recommended to monitor and further recommendation to follow. 11/04 85-year-old female admitted with colitis being treated with imipenem ( day 14th) Dr. Cooper is recommending additional 5 postop, s/p laparoscopy surgery with lysis and dehidition and releasing of small-bowel obstruction on 10/31 suspected inflammation around colon during surgery, recommending to flagyl from tomorrow, patient over alll symptoms have improved, is able to tolerate a diet, able to participate in physical therapy, talked with surgery team may discharge patient to rehab tomorrow. Continue physical therapy here in the hospital. (2) Coronary artery disease: Code(s): I25.10 - Atherosclerotic heart disease of [place] coronary artery without angina pectoris Status: Chronic Assessment and Plan: Pt seen by cardiology, chronic and stable (3) GI bleeding: Code(s): K92.2 - Gastrointestinal hemorrhage, unspecified Status: Resolved Assessment and Plan: Surgery consulted (4) Septic shock: Code(s): A41.9 - Sepsis, unspecified organism; R65.21 - Severe sepsis with septic shock Status: Resolved Assessment and Plan: Bp corrected. seen by iCU MD, off vasopressors ok to transfer out of ICU (5) Colitis: Code(s): K52.9 - Noninfective gastroenteritis and colitis, unspecified Status: Acute Assessment and Plan: Pt on imipenem/ cilastatin, surgery consulted, lactic level better, xay shows colitis. pt can eat today (6) Acute renal failure (ARF): Qualifiers: Acute renal failure type: unspecified Qualified Code(s): N17.9 - Acute kidney failure, unspecified Code(s): N17.9 - Acute kidney failure, unspecified Status: Acute Assessment and Plan: Pt has history of CKD stage 3, creat is 0.5 (7) Hypokalemia: Code(s): E87.6 - Hypokalemia Status: Acute Assessment and Plan: potassium supplements, consult dietican Subjective Date/time seen: 11/05/20 12:20 Interval history: 85-year-old female admitted with colitis being treated with imipenem ( day 14th) Dr. Cooper is recommending additional 5 postop, s/p laparoscopy surgery with lysis and dehidition and releasing of small-bowel obstruction on 10/31 suspected inflammation around colon during surgery, recommending to flagyl from tomorrow, continue physical therapy, hopeful discharge to rehab tomorrow. Review of Systems Review of Systems: All systems reviewed & are unremarkable except as noted in HPI and below Exam Narrative: Exam Narrative: Elderly frail Patient is comfortable, NAD HEENT: eyes are clear and none icteric. LUNGS:CTA HEART: RR S1S2 ABD: Bowel sounds are faint, diffusely tender Lower extremities: no edema SKIN: nonjaundiced Neuro: grossly intact. Objective Data Vital Signs Vital Signs: Vital Signs - 24 hr 11/04/20 16:00 11/04/20 21:41 11/05/20 06:00 Temperature 36.3 C L 36.3 C L 36.2 C L Pulse Rate 70 50 L 70 Respiratory Rate 16 18 16 Blood Pressure 175/69 H 137/51 L 137/53 L Pulse Oximetry 100 90 98 Intake/Output Intake/Output: Intake & Output 11/02/20 11/03/20 11/04/20 11/05/20 23:59 23:59 23:59 23:59 Intake Total 3785 4555 2870 250 Output Total 1290 2070 1055 905 Balance 2495 2485 1815 -655 Meds/Results Medications: Active Medications Generic Name Dose Route Start Last Admin Trade Name Freq PRN Reason Stop Dose Admin Acetaminophen 1,000 mg 10/24/20 08:51 11/04/20 22:21 Acetamino
[2020-11-05 12:26] LABS: Glucose Point of Care 187 (65-105)
--- NOTE | 2020-11-05 13:12 | PM.PNGS ---
Progress Note: A&P Assessment and Plan (1) Acute colitis: Code(s): K52.9 - Noninfective gastroenteritis and colitis, unspecified Status: Acute Assessment and Plan: CTA on 10/28 showed descending and rectosigmoid colitis with no evidence of ischemia, and interval development of a small bowel obstruction with distinct transition point in the mid ileum. Small-bowel follow-through showed the dye did not go through. Therefore, patient had surgical intervention on 10/31/20. See op note. Now tolerating a diabetic, low fiber diet. Poor appetite but still taking in fluids well. Continue calorie count. TPN stopped yesterday and I will stop IV fluids today, it appears she is taking in enough fluids but will monitor. Agree with Cardiology re-evaluating the patient in regards to restarting anticoagulation since no further surgery is considered - currently on prophylactic Lovenox. Will stop IV Imipenem today and keep her on oral Flagyl for possibly another week to complete treatment for the colitis. Encouraged increased activity and ambulation. PT following. Encouraged IS use. (2) Ileus: Code(s): K56.7 - Ileus, unspecified Status: Acute Assessment and Plan: Now tolerating a diet and TPN is off. See plan above. Additional Plan Discussed the patient's plan of care with Dr. Cooper today. Subjective Subjective Date/Time Seen: 11/05/20 10:12 Post Op day: 5 Patient reports: no new complaints, tolerating a regular diet, flatus, bowel movement and afebrile Interval history: Patient feeling tired today and overall weak. Reports tolerating a diabetic low fiber diet, but poor appetite. Currently on calorie count. Reports BM overnight. No other complaints at this time. Review of Systems Review of Systems: All systems reviewed & are unremarkable except as noted in HPI and below Constitutional: Constitutional: Reports as per HPI and Denies fever(s) Gastrointestinal: Gastrointestinal: Reports as per HPI and Reports no additional gastrointestinal complaints Exam Const: General: comfortable and no acute distress Orientation/consciousness: patient oriented x3 Resp: Effort & Inspection: able to speak in complete sentences and no respiratory distress Auscultation: clear to auscultation bilaterally Cardio: Rate: regular rate Rhythm: regular rhythm GI: Inspection: incision ( Clean and dry with surgical glue in place) and other (mildly distended) GI Palp: Yes Soft to palpation, Yes Tenderness to palpation present (GI) (mild diffuse tenderness) and No Guarding due to palpation present (GI) Auscultation: normal bowel sounds Other: JONH drain in LLQ with serous drainage in the bulb suction and saturated ABD pad with serous drainage overlying the JONH drain. Dressing changed. Urinary Catheter: Urinary Catheter: patent and draining and urine clear Skin: General skin exam: normal color Neuro: General: moves all extremities and no focal motor deficits Extrem: General: no clubbing, cyanosis or edema and no calf tenderness Psych: Mental Status: mental status grossly normal Attitude: cooperative Insight: Fair insight present (Psych) Judgement: Fair judgement present (Psych) Objective Data Vital Signs Vital Signs: Vital Signs - 24 hr 11/04/20 16:00 11/04/20 21:41 11/05/20 06:00 Temperature 97.4 F L 97.3 F L 97.2 F L Pulse Rate 70 50 L 70 Respiratory Rate 16 18 16 Blood Pressure 175/69 H 137/51 L 137/53 L Pulse Oximetry 100 90 98 Intake/Output Intake/Output: Intake & Output 11/02/20 11/03/20 11/04/20 11/05/20 23:59 23:59 23:59 23:59 Intake Total 3785 4555 2870 250 Output Total 1290 2070 1055 905 Balance 2495 2485 1815 -655 Meds/Results Medications: Active Medications Generic Name Dose Route Start Last Admin Trade Name Freq PRN Reason Stop Dose Admin Acetaminophen 1,000 mg 10/24/20 08:51 11/04/20 22:21 Acetaminophen 500 Mg Tablet PO 1,000 mg Q6H PRN Administration Mild Ramesh
[2020-11-05 14:00] VITALS: BP 151/75; PULSE 70; RESP 18; TEMP 36.3; O2SAT 92
[2020-11-05] MEDS: metroNIDAZOLE 250 MG TABLET 500 MG PO ×2 (14:50→22:00)
--- NOTE | 2020-11-05 14:52 | PCOTNOTE ---
Attempted to see Patient for P.M. treatment session. Patient refused any activity at this time due to c/o severe pain, when attempting to eat. Patients RN is present and aware.
[2020-11-05] MEDS: ACETAMINOPHEN 500 MG TABLET 1000 MG PO (14:54)
[2020-11-05 17:36] LABS: Glucose Point of Care 178 (65-105)
[2020-11-05 21:51] VITALS: BP 108/64; RESP 97; TEMP 36.6; O2SAT 97
[2020-11-05] MEDS: INSULIN GLARGINE (*BKC) 100 UNITS/ML 9 UNITS SUB-Q (21:59)
[2020-11-05 22:00] VITALS: PULSE 87
[2020-11-05] MEDS: AMITRIPTYLINE HCL 25 MG TABLET 50 MG PO (22:00)
[2020-11-05 22:30] LABS: Glucose Point of Care 163 (65-105)
[2020-11-06 05:32] VITALS: BP 137/56; PULSE 71; RESP 16; TEMP 36.7; O2SAT 98
[2020-11-06] MEDS: CENTRAL LINE FLUSH 10 ML IV PUSH ×2 (05:48→14:51)
[2020-11-06] MEDS: metroNIDAZOLE 250 MG TABLET 500 MG PO ×2 (05:48→14:51)
[2020-11-06 05:59] LABS: Hematocrit 27.6 % (37.0-47.0); Mean Corpuscular HGB Conc 32.6 g/dl (32-36); Mean Corpuscular Volume 95.2 fl (80-100); Mean Platelet Volume 10.5 fl (7.4-10.4); Platelet Count Result 231 k/mm3 (150-375); Red Cell Distribution Width 13.2 % (11.5-14.5)
[2020-11-06 06:12] LABS: Anion Gap 2 mmol/L (8-16); Blood Urea Nitrogen 10 mg/dL (7-17); Calcium 7.9 mg/dL (8.4-10.2); Carbon Dioxide 27 mmol/L (22-30); Chloride 104 mmol/L (98-107); Estimated CRCL calculation 61 ml/min; Estimated Glomerular Filt Rate > 60; Glucose 83 mg/dL (65-105); Potassium 4.1 mmol/L (3.4-5.0); Sodium 133 mmol/L (137-145)
[2020-11-06 07:55] LABS: Glucose Point of Care 83 (65-105)
--- NOTE | 2020-11-06 08:10 | PM.PNGS ---
Progress Note: A&P Assessment and Plan (1) Acute colitis: Code(s): K52.9 - Noninfective gastroenteritis and colitis, unspecified Status: Acute Assessment and Plan: CTA on 10/28 showed descending and rectosigmoid colitis with no evidence of ischemia, and interval development of a small bowel obstruction with distinct transition point in the mid ileum. Small-bowel follow-through showed the dye did not go through. Therefore, patient had surgical intervention on 10/31/20. See op note. Now tolerating a diabetic, low fiber diet. Poor appetite but still taking in fluids well. Continue calorie count. TPN stopped yesterday and I will stop IV fluids today, it appears she is taking in enough fluids but will monitor. Agree with Cardiology re-evaluating the patient in regards to restarting anticoagulation since no further surgery is considered - currently on prophylactic Lovenox. Will stop IV Imipenem today and keep her on oral Flagyl for possibly another week to complete treatment for the colitis. Encouraged increased activity and ambulation. PT following. Encouraged IS use. Will remove Shore and see if she is continent of urine If patient to go to stones in today consider removing JONH drain at this point. It is only serous drainage and she is probably just draining some ascitic fluid from her abdomen. I think most this would be reabsorbed if it has not drained out. (2) Colitis: Code(s): K52.9 - Noninfective gastroenteritis and colitis, unspecified Status: Acute Assessment and Plan: Patient has received a full 14 days of IV antibiotics for this and I suggest keeping her on oral Flagyl for about 5-6 more days. This was started yesterday. At that point we would then stop all antibiotics and watch for problems. Okay with surgery to transfer just on later today if okay with Medicine and Cardiology. Subjective Subjective Date/Time Seen: 11/06/20 08:10 Post Op day: POD # 6 Patient reports: no new complaints and feels better Interval history: Patient states that the stools were solidified enough that she was able to get up to the commode and have a bowel movement there were other than having it leak out as she stood up. Tolerated soft diet yesterday. Denies much abdominal pain. No nausea. Patient states she did not have a Shore catheter in at [facility] before coming here. Review of Systems Review of Systems: All systems reviewed & are unremarkable except as noted in HPI and below Constitutional: Constitutional: Reports as per HPI, Denies anorexia, Denies chills, Denies fatigue, Denies fever(s), Denies headache(s), Reports increased appetite, Reports lethargy and Reports weakness (generalized) Eyes: Eyes: Reports no additional eye complaints, Denies change in vision and Denies loss of vision ENT: Reports Normal hearing present, Denies dizziness and Denies headache(s) Cardiovascular: Cardiovascular: Reports no additional cardiovascular complaints, Denies chest pain at rest, Denies syncope, Denies rapid heart rate, Denies leg edema, Denies lightheadedness, Denies radiating jaw, neck or arm pain, Denies dyspnea and Denies orthopnea Respiratory: Respiratory: Reports no additional respiratory complaints, Denies cough, Denies dyspnea and Denies wheezing Gastrointestinal: Gastrointestinal: Reports as per HPI, Reports no additional gastrointestinal complaints, Denies abdominal pain, Denies melena, Denies early satiety, Denies diarrhea, Denies nausea and Denies vomiting Genitourinary: Genitourinary: Denies hematuria and Denies dysuria Musculoskeletal: Musculoskeletal: Reports no additional musculoskeletal complaints, Denies deformity, Denies joint swelling, Denies radiating pain into limb and Denies tingling Integumentary/Breasts: Skin/Breast: Denies pruritus, Denies lesions, Denies erythema, Denies wounds and Denies jaundice Neurologic: Reports system reviewed and no additional complaints, except as documented, Reports Nor
[2020-11-06] MEDS: PANTOPRAZOLE 40 MG TABLET PO (08:47)
[2020-11-06] MEDS: MAGNESIUM OXIDE 400 MG TABLET PO (08:47)
[2020-11-06] MEDS: ENOXAPARIN 40 MG/0.4 ML SYRINGE SUB-Q (08:47)
[2020-11-06] MEDS: BISACODYL 10 MG SUPPOSITORY RECTAL (08:47)
[2020-11-06] MEDS: PSYLLIUM POWDER PACKET 1 PACKET PO (08:48)
[2020-11-06 11:49] LABS: Glucose Point of Care 123 (65-105)
[2020-11-06] MEDS: ACETAMINOPHEN 500 MG TABLET 1000 MG PO (12:36)
--- NOTE | 2020-11-06 12:47 | PM.IMPN ---
Progress Note: A&P Assessment and Plan (1) Paroxysmal atrial flutter: Code(s): I48.92 - Unspecified atrial flutter Status: Chronic Assessment and Plan: Patient is 85-year-old female admitted with colitis being treated with imipenem, patient is on clear liquid able to tolerate patient was seen by surgery team and advanced her diet to full liquid as tolerated, patient also complains of right-sided chest after swallowing any eating seen by surgery recommended to monitor and further recommendation to follow. 11/04 85-year-old female admitted with colitis being treated with imipenem ( day 14th) Dr. Cooper is recommending additional 5 postop, s/p laparoscopy surgery with lysis and dehidition and releasing of small-bowel obstruction on 10/31 suspected inflammation around colon during surgery, recommending lagyl for few more days. patient over all symptoms have improved, is able to tolerate a diet, able to participate in physical therapy, talked with surgery team may discharge patient to rehab this weekend. Continue physical therapy here in the hospital. (2) Coronary artery disease: Code(s): I25.10 - Atherosclerotic heart disease of [place] coronary artery without angina pectoris Status: Chronic Assessment and Plan: Pt seen by cardiology, chronic and stable (3) GI bleeding: Code(s): K92.2 - Gastrointestinal hemorrhage, unspecified Status: Resolved Assessment and Plan: Surgery consulted (4) Septic shock: Code(s): A41.9 - Sepsis, unspecified organism; R65.21 - Severe sepsis with septic shock Status: Resolved Assessment and Plan: Bp corrected. seen by iCU MD, off vasopressors ok to transfer out of ICU (5) Colitis: Code(s): K52.9 - Noninfective gastroenteritis and colitis, unspecified Status: Acute Assessment and Plan: on flagyl now, surgery consulted, lactic level better, pt can eat today (6) Acute renal failure (ARF): Qualifiers: Acute renal failure type: unspecified Qualified Code(s): N17.9 - Acute kidney failure, unspecified Code(s): N17.9 - Acute kidney failure, unspecified Status: Acute Assessment and Plan: Pt has history of CKD stage 3, creat is 0.5 (7) Hypokalemia: Code(s): E87.6 - Hypokalemia Status: Resolved Assessment and Plan: potassium supplements, consult dietican Subjective Date/time seen: 11/06/20 12:47 Interval history: 85-year-old female admitted with colitis being treated with imipenem ( day 14) Dr. Cooper is recommending additional 5 postop, s/p laparoscopy surgery with lysis and dehidition and releasing of small-bowel obstruction on 10/31 suspected inflammation around colon during surgery, recommending continuation of flagyl, continue physical therapy, hopeful discharge to rehab this weekend, awaiting insurance. Review of Systems Review of Systems: All systems reviewed & are unremarkable except as noted in HPI and below Exam Narrative: Exam Narrative: Elderly frail Patient is comfortable, NAD HEENT: eyes are clear and none icteric. LUNGS:CTA HEART: RR S1S2 ABD: Bowel sounds are faint, diffusely tender Lower extremities: no edema SKIN: nonjaundiced Neuro: grossly intact. Objective Data Vital Signs Vital Signs: Vital Signs - 24 hr 11/05/20 14:00 11/05/20 21:51 11/05/20 22:00 Temperature 36.3 C L 36.6 C Pulse Rate 70 87 Respiratory Rate 18 97 H Blood Pressure 151/75 H 108/64 Pulse Oximetry 92 97 11/06/20 05:32 Temperature 36.7 C Pulse Rate 71 Respiratory Rate 16 Blood Pressure 137/56 L Pulse Oximetry 98 Intake/Output Intake/Output: Intake & Output 11/03/20 11/04/20 11/05/20 11/06/20 23:59 23:59 23:59 23:59 Intake Total 4555 2870 1040 240 Output Total 2070 1055 2465 450 Balance 2485 7259 -9326 -224 Meds/Results Medications: Active Medications Generic Name Dose Route Start Last Admin Trade Name Freq PRN
--- NOTE | 2020-11-06 13:53 | PM.DS ---
DS: Admitting Diagnosis Admitting Diagnosis Admitting Diagnosis: PT ADMITTED WITH HYPOTENSION AND ABDOMINAL PAIN DS: Discharge Diagnosis Discharge Diagnosis (1) Paroxysmal atrial flutter: Code(s): I48.92 - Unspecified atrial flutter Status: Chronic Assessment and Plan: INTERVAL HISTORY: Patient is 85-year-old female admitted with colitis being treated with imipenem, patient is on clear liquid able to tolerate patient was seen by surgery team and advanced her diet to full liquid as tolerated, patient also complains of right-sided chest after swallowing any eating seen by surgery recommended to monitor and further recommendation to follow. 11/04 85-year-old female admitted with colitis being treated with imipenem ( day 14th) Dr. Cooper is recommending additional 5 postop, s/p laparoscopy surgery with lysis and dyshesion and releasing of small-bowel obstruction on 10/31 suspected inflammation around colon during surgery, recommending flagyl for few more days. patient over all symptoms have improved, is able to tolerate a diet, able to participate in physical therapy. Pt to be discharged to rehabilitation when placement is found. (2) Coronary artery disease: Qualifiers: Associated angina: without angina Coronary Disease-Associated Artery/Lesion type: unspecified vessel or lesion type [place] vs. transplanted heart: unspecified whether [place] or transplanted heart Qualified Code(s): I25.10 - Atherosclerotic heart disease of [place] coronary artery without angina pectoris Code(s): I25.10 - Atherosclerotic heart disease of [place] coronary artery without angina pectoris Status: Chronic Assessment and Plan: Pt seen by cardiology, chronic and stable (3) GI bleeding: Code(s): K92.2 - Gastrointestinal hemorrhage, unspecified Status: Resolved Assessment and Plan: Surgery consulted (4) Septic shock: Code(s): A41.9 - Sepsis, unspecified organism; R65.21 - Severe sepsis with septic shock Status: Resolved Assessment and Plan: INTERVAL HISTORY: 85 year old female directly admitted from [facility] for higher level of care. Pt complains of abdominal pain, diarrhea and nausea on/ off for one month. She has a history of diabetes, hypothyroidism, history of CAD with CABG has a left-sided pacemaker history of CHF and hyperlipidemia. On admission septic shock secondary to gi bleed colitis or isc hemic colitis was considered, pt still having abdominal tenderness. sepsis has improved, pt can be transferred to medical floor. Seen by surgery and ICU and cardiology, abdominal pain getting better Bp corrected. seen by iCU MD, off vasopressors transferred out of ICU, pt to be discharged to rehabilitation when medically stable. (5) Colitis: Code(s): K52.9 - Noninfective gastroenteritis and colitis, unspecified Status: Acute Assessment and Plan: On flagyl now, pt can eat today (6) Acute renal failure (ARF): Qualifiers: Acute renal failure type: unspecified Qualified Code(s): N17.9 - Acute kidney failure, unspecified Code(s): N17.9 - Acute kidney failure, unspecified Status: Acute Assessment and Plan: Pt has history of CKD stage 3, creat is 0.5 (7) Hypokalemia: Code(s): E87.6 - Hypokalemia Status: Resolved Assessment and Plan: Potassium supplements, consult commercial underwriter DS: Summary Hospital Course Hospital Course: INTERVAL HISTORY: 10/26 85-year-old female admitted with colitis being treated with imipenem and on 10/25 surgery team and advanced her diet to full liquid, patient stated able to tolerate her diet, her right-sided abdominal pain is also him, she does have loose BM, she denies any fever or chills, patient will be seen by surgery team and further recommendation to follow. 10/27 85-year-old female admitted with colitis being treated with imipenem ( day 7th) and on 10/25 surgery team and a
[2020-11-06 14:00] VITALS: BP 117/60; PULSE 68; RESP 18; TEMP 36.4; O2SAT 99
[2020-11-06 17:20] LABS: Glucose Point of Care 170 (65-105)
== END 2020-11-06 18:51 | disposition swing bed (61) | DRG 853 ==
LOC: ANHICU 15:12 → ANH3MEDSUR 10-26 10:19 → ANHICU 11-10 07:38 → ANHIMU 11-10 07:38
PROVIDERS: Family Medicine; Internal Medicine; Surgery; Admitting Provider Family Medicine; PCP Family Medicine; Visit Provider Family Medicine
PROC: 0DTJ4ZZ Resection of Appendix, Percutaneous Endoscopic Approach (ICD-10-PCS; CPT 44970; principal; 2020-10-31 11:30)
DX: A41.9 Sepsis, unspecified organism (principal); R65.21 Severe sepsis with septic shock; A09 Infectious gastroenteritis and colitis, unspecified; K92.2 Gastrointestinal hemorrhage, unspecified; E87.2 Acidosis; I48.92 Unspecified atrial flutter; I13.0 Hypertensive heart and chronic kidney disease with heart failure and stage 1 through stage 4 chronic kidney disease, or unspecified chronic kidney disease; I48.20 Chronic atrial fibrillation, unspecified; E87.1 Hypo-osmolality and hyponatremia; N17.9 Acute kidney failure, unspecified; K56.7 Ileus, unspecified; K56.50 Intestinal adhesions [bands], unspecified as to partial versus complete obstruction; I50.32 Chronic diastolic (congestive) heart failure; Z20.822 Contact with and (suspected) exposure to COVID-19; I15.2 Hypertension secondary to endocrine disorders; E11.22 Type 2 diabetes mellitus with diabetic chronic kidney disease; N18.30 Chronic kidney disease, stage 3 unspecified; E87.6 Hypokalemia; I25.10 Atherosclerotic heart disease of native coronary artery without angina pectoris; E03.9 Hypothyroidism, unspecified; E11.42 Type 2 diabetes mellitus with diabetic polyneuropathy; E78.49 Other hyperlipidemia; Z96.651 Presence of right artificial knee joint; Z79.01 Long term (current) use of anticoagulants; Z95.1 Presence of aortocoronary bypass graft; Z86.73 Personal history of transient ischemic attack (TIA), and cerebral infarction without residual deficits; Z90.49 Acquired absence of other specified parts of digestive tract; Z90.710 Acquired absence of both cervix and uterus; Z90.722 Acquired absence of ovaries, bilateral; Z95.0 Presence of cardiac pacemaker
CPT/HCPCS: 36415; 36556; 74018; 74019; 74174; 74250; 80048; 80053; 80069; 82550; 82948; 83605; 83735; 84100; 84134; 84466; 84478; 84484; 85014; 85018; 85025; 85027; 85610; 85730; 86850; 86900; 86901; 87324; 93005; 97110; 97116; 97161; 97164; 97165; 97168; 97530; 97535; A9270; C1751; C8929; C9113; C9803; J0131; J0330; J0743; J1650; J1815; J2270; J2370; J2405; J2704; J2710; J2997; J3010; J3475; J3480; J7030; J7040; J7120; P9047; Q9957; Q9967; U0003; U0005

== ENCOUNTER 2020-11-06 19:35 | Inpatient (IN) | payer MEDICARE, SELFPAY ==
[2020-11-06 20:23] VITALS: BMI 23.6
[2020-11-06 22:00] VITALS: PULSE 69; RESP 16; TEMP 36.1
[2020-11-06] MEDS: AMITRIPTYLINE HCL 25 MG TABLET 50 MG PO (23:25)
[2020-11-06 23:29] LABS: Glucose Point of Care 184 (65-105)
[2020-11-06] MEDS: metroNIDAZOLE 250 MG TABLET 500 MG PO (23:41)
[2020-11-06] MEDS: INSULIN GLARGINE (*BKC) 100 UNITS/ML 9 UNITS SUB-Q (23:44)
[2020-11-07] VITALS: BP 131/56; PULSE 69; RESP 20; TEMP 36.7
--- NOTE | 2020-11-07 04:53 | PM.IMHP ---
H&P: HPI History of Present Illness Date/Time: 11/07/20 04:53 Chief Complaint: Patient is brought in for further care and swing bed status after transfer to [facility] for exploratory lap with EAGLE there Narrative: Dinorah Thorpe is a 85 year old female who was transferred to [facility] for surgical evaluation for abdominal pain diarrhea and nausea. She was found to have a retrosigmoid colitis and a small bowel obstruction and had surgical laparotomy, with lysis of adhesions. She has laparotomy wounds with the lowest one on her left abdomen draining still. It is covered with a dry dressing and has serous drainage. Her surgeons wish her to have about 5-6 more days of Flagyl here to complete there desired treatment for colitis. She will need physical therapy. She has had a poor diet and recently had her TPN stopped, but reportedly is taking fluids well. She presents for further care and therapy. Review of Systems Constitutional: Constitutional: Reports fatigue and Reports weakness Eyes: Eyes: Reports no additional eye complaints ENT: Reports system reviewed and no additional complaints, except as documented Cardiovascular: Cardiovascular: Reports no additional cardiovascular complaints Respiratory: Respiratory: Reports no additional respiratory complaints Gastrointestinal: Gastrointestinal: Reports as per HPI Genitourinary: Genitourinary: Reports no additional female genitourinary complaints Musculoskeletal: Musculoskeletal: Reports no additional musculoskeletal complaints Integumentary/Breasts: Skin/Breast: Reports system reviewed and no additional complaints, except as docu Neurologic: Reports system reviewed and no additional complaints, except as documented Psychiatric: Psychiatric: Reports no additional psychiatric complaints [facility], [facility] Past Medical History Medical History Cardiomegaly Chronic anticoagulation 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trial flutter. CKD (chronic kidney disease) stage 3, GFR 30-59 ml/min Closed head injury Congestive heart failure Contusion of right shoulder Coronary artery disease Diabetes type 2, controlled Diarrhea Dysphagia Fall (~07/22/19) History of esophageal dilatation History of pacemaker History of TIA (transient ischemic attack) and stroke Hyperlipidemia associated with type 2 diabetes mellitus Hypertension associated with stage 3 chronic kidney disease due to type 2 diabetes mellitus Hyponatremia Hypothyroidism Paroxysmal atrial flutter Peripheral sensory neuropathy due to type 2 diabetes mellitus Rectal bleeding Schatzki's ring of distal esophagus Trigger finger, right middle finger Surgical History Surgical History History of appendectomy History of arthroplasty of right knee History of cholecystectomy History of colonoscopy with polypectomy Last colonoscopy in 01/2020 with descending colon polyp biopsied and showing ulcerated tubulovillous adenoma with high-grade dysplasia. History of mitral valve repair 4 vessel CABG and Mitral Valve Repair at [facility] in 1995. History of phacoemulsification of cataract of both eyes with intraocular lens implantation History of total abdominal hysterectomy and bilateral salpingo-oophorectomy S/P CABG (coronary artery bypass graft) 4 vessel CABG and Mitral Valve Repair at [facility] in 1995. Family History Family History Mother Carcinoma of colon Father Family history of coronary artery disease Father Family history of coronary artery disease Other Heart disease Hypertension Social History Social History Smoking status: Never smoker Second hand tobacco smoke exposure: No Alcohol intake: never Substance use: never Substance use type: does not use Last use:
[2020-11-07] MEDS: metroNIDAZOLE 250 MG TABLET 500 MG PO ×3 (06:10→21:10)
[2020-11-07] MEDS: LEVOTHYROXINE SODIUM 112 MCG TABLET PO (06:10)
[2020-11-07 08:00] VITALS: BP 130/56; PULSE 70; RESP 18; TEMP 36.5; O2SAT 94
[2020-11-07 08:01] LABS: Glucose Point of Care 135 (65-105)
[2020-11-07 09:25] VITALS: PULSE 70
[2020-11-07] MEDS: lisinopriL 10 MG TABLET PO ×2 (09:25→17:57)
[2020-11-07] MEDS: RIVAROXABAN 10 MG TABLET 15 MG PO (09:25)
[2020-11-07] MEDS: PRAVASTATIN SODIUM 20 MG TABLET PO (09:25)
[2020-11-07] MEDS: PANTOPRAZOLE 40 MG TABLET PO (09:25)
[2020-11-07] MEDS: carvediloL 6.25 MG TABLET PO ×2 (09:25→17:57)
[2020-11-07] MEDS: MAGNESIUM OXIDE 400 MG TABLET PO (09:25)
[2020-11-07] MEDS: FUROSEMIDE 40 MG TABLET PO (09:25)
[2020-11-07] MEDS: POTASSIUM CHLORIDE 10 MEQ TABLET PO (09:25)
[2020-11-07] MEDS: FERROUS SULFATE 324 MG TABLET PO (10:31)
[2020-11-07 11:49] LABS: Glucose Point of Care 198 (65-105)
--- NOTE | 2020-11-07 13:06 | WPDPN ---
Progress Note: A&P Assessment and Plan (1) Weakness: Code(s): R53.1 - Weakness Status: Acute Assessment and Plan: ? Exhibit tolerance during physical activity as evidenced by a normal fluctuation of vital signs during physical activity. ? Patient will be ability to perform required activities of daily living. ? Provide appropriate nutrition for healing and strength. ? Use appropriate to prevent falls. ? Continue physical therapy/occupational therapy. (2) Small bowel obstruction due to adhesions: Code(s): K56.50 - Intestinal adhesions [bands], unspecified as to partial versus complete obstruction Status: Acute Assessment and Plan: Abdominal x-ray on 10/31/2020 indicates Small bowel obstruction. CTA on 10/28 showed descending and rectosigmoid colitis with no evidence of ischemia, and interval development of a small bowel obstruction with distinct transition point in the mid ileum. 10/31/2020iagnostic laparoscopy, with laparoscopic lysis of adhesions and release of small-bowel obstruction. Completed findings-Inflammatory and old adhesions. The prior along the medial side of the sigmoid colon at the pelvic brim with a dense inflammatory adhesion to 1 loop of small bowel. The latter was longstanding omental adhesions to the anterior abdominal wall from the umbilicus anteriorly all the way down into the pelvis and into the right pelvic brim. Small bowel was probably was obstructed due to the change in position of the bowel with the inflammatory adhesion on the left and caught underneath the omental adhesions anteriorly (3) Colitis: Code(s): K52.9 - Noninfective gastroenteritis and colitis, unspecified Status: Acute Assessment and Plan: CT of the abdomen on 10/28/2019 indicated Descending and rectosigmoid colonic colitis Completed 14 days of Imipenem .we will complete Flagyl for about 5-6 more days will in 11/13/20 Surgery was consulted while at [facility] Continue Metamucil (4) Paroxysmal atrial flutter: Code(s): I48.92 - Unspecified atrial flutter Status: Chronic Assessment and Plan: Controlled Continue Xarelto MICHELLE on 12/17/2017 prior to cardioversion showed left atrial appendage thrombus (5) Coronary artery disease: Qualifiers: Coronary Disease-Associated Artery/Lesion type: unspecified vessel or lesion type [place] vs. transplanted heart: unspecified whether [place] or transplanted heart Associated angina: without angina Qualified Code(s): I25.10 - Atherosclerotic heart disease of [place] coronary artery without angina pectoris Code(s): I25.10 - Atherosclerotic heart disease of [place] coronary artery without angina pectoris Status: Chronic Assessment and Plan: Continue pravastatin (6) Congestive heart failure: Qualifiers: Heart failure type: unspecified Heart failure chronicity: chronic Qualified Code(s): I50.9 - Heart failure, unspecified Code(s): I50.9 - Heart failure, unspecified Status: Chronic Assessment and Plan: Compensated Continue Lasix 40 mg daily (7) GERD (gastroesophageal reflux disease): Qualifiers: Esophagitis presence: without esophagitis Qualified Code(s): K21.9 - Gastro-esophageal reflux disease without esophagitis Code(s): K21.9 - Gastro-esophageal reflux disease without esophagitis Status: Acute Assessment and Plan: Continue pantoprazole (8) Pacemaker: Code(s): Z95.0 - Presence of cardiac pacemaker Status: Acute (9) Diabetes type 2, controlled: Qualifiers: Diabetes mellitus usp insulin use: with usp use Diabetes mellitus complication status: without complication Qualified Code(s): E11.9 - Type 2 diabetes mellitus without complications; 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
[2020-11-07 16:00] VITALS: BP 126/80; PULSE 70; RESP 18; TEMP 37.1; O2SAT 97
[2020-11-07 17:00] LABS: Glucose Point of Care 147 (65-105)
[2020-11-07 17:57] VITALS: PULSE 70
--- NOTE | 2020-11-07 19:48 | PC.NURSE ---
dressing from old drain site noted to left abdomen, dry at this time, mead patent and draining
[2020-11-07] MEDS: INSULIN GLARGINE (*BKC) 100 UNITS/ML 9 UNITS SUB-Q (21:10)
[2020-11-07] MEDS: AMITRIPTYLINE HCL 25 MG TABLET 50 MG PO (21:10)
[2020-11-07 21:19] LABS: Glucose Point of Care 168 (65-105)
[2020-11-07 23:41] VITALS: BP 98/46; PULSE 70; RESP 20; TEMP 36.4; O2SAT 95
[2020-11-08] MEDS: metroNIDAZOLE 250 MG TABLET 500 MG PO ×3 (06:15→21:10)
[2020-11-08] MEDS: LEVOTHYROXINE SODIUM 112 MCG TABLET PO (06:16)
[2020-11-08 08:00] VITALS: BP 105/48; PULSE 67; RESP 16; TEMP 36.3; O2SAT 96
[2020-11-08 08:08] LABS: Glucose Point of Care 91 (65-105)
[2020-11-08] MEDS: FERROUS SULFATE 324 MG TABLET PO (08:57)
[2020-11-08 08:58] VITALS: PULSE 77
[2020-11-08] MEDS: carvediloL 6.25 MG TABLET PO (08:58)
[2020-11-08] MEDS: MAGNESIUM OXIDE 400 MG TABLET PO (08:58)
[2020-11-08] MEDS: PANTOPRAZOLE 40 MG TABLET PO (08:58)
[2020-11-08] MEDS: POTASSIUM CHLORIDE 10 MEQ TABLET PO (08:58)
[2020-11-08] MEDS: FUROSEMIDE 40 MG TABLET PO (08:58)
[2020-11-08] MEDS: RIVAROXABAN 10 MG TABLET 15 MG PO (08:58)
[2020-11-08] MEDS: PRAVASTATIN SODIUM 20 MG TABLET PO (08:58)
[2020-11-08] MEDS: lisinopriL 10 MG TABLET PO (08:58)
[2020-11-08 11:56] LABS: Glucose Point of Care 162 (65-105)
[2020-11-08 16:00] VITALS: BP 81/31; PULSE 70; RESP 16; TEMP 36; O2SAT 96
[2020-11-08 16:37] LABS: Glucose Point of Care 270 (65-105)
[2020-11-08] MEDS: SODIUM CHLORIDE 0.9% IV 1,000 ML 999 ML IV CONT (17:10)
[2020-11-08 17:50] VITALS: PULSE 70
[2020-11-08 19:59] VITALS: BP 106/51
--- NOTE | 2020-11-08 20:12 | PC.NURSE ---
Vagainal area, perianal area, buttocks is red and edematous. Patient C/O burning. No discharge noted. Cleansed with cleaning cloths and barrier cream applied.
[2020-11-08] MEDS: AMITRIPTYLINE HCL 25 MG TABLET 50 MG PO (21:10)
[2020-11-08] MEDS: INSULIN GLARGINE (*BKC) 100 UNITS/ML 9 UNITS SUB-Q (21:12)
[2020-11-09] VITALS (7 sets, daily range): BP systolic 102–123; BP diastolic 48–80; PULSE 20–71; RESP 16–70; TEMP 36.1–37.6; O2SAT 95–100
--- NOTE | 2020-11-09 00:35 | PC.NURSE ---
Inc mod amt liquid stool after non productive cough. Inc care provided. Barrier cream applied.
[2020-11-09] MEDS: LEVOTHYROXINE SODIUM 112 MCG TABLET PO (05:58)
[2020-11-09] MEDS: metroNIDAZOLE 250 MG TABLET 500 MG PO ×3 (05:59→21:06)
--- NOTE | 2020-11-09 06:12 | PC.NURSE ---
Dressing change abd serious drainage. Inc care, liquid stool. Barrier cream applied.
--- NOTE | 2020-11-09 08:08 | PM.EVENT ---
Event Note Event Note Event Note: discontinued the psyllium due to diarrhea. Patient tested negative for C. difficile hesitant to start Imodium due to patient recent diagnosis of SBO. Will reevaluate in a couple days to see if Imodium is appropriate.
[2020-11-09] MEDS: carvediloL 6.25 MG TABLET PO ×2 (09:17→17:10)
[2020-11-09] MEDS: FUROSEMIDE 40 MG TABLET PO (09:17)
[2020-11-09] MEDS: RIVAROXABAN 10 MG TABLET 15 MG PO (09:17)
[2020-11-09] MEDS: POTASSIUM CHLORIDE 10 MEQ TABLET PO (09:17)
[2020-11-09] MEDS: MAGNESIUM OXIDE 400 MG TABLET PO (09:17)
[2020-11-09] MEDS: PRAVASTATIN SODIUM 20 MG TABLET PO (09:18)
[2020-11-09] MEDS: PANTOPRAZOLE 40 MG TABLET PO (09:18)
[2020-11-09] MEDS: FERROUS SULFATE 324 MG TABLET PO (09:18)
--- NOTE | 2020-11-09 13:30 | PC.NURSE ---
OT working with patient, advised this nurse that patient started to report some chest pain and pressure while lifting hand weights. This nurse assessed patient. Patient does not appear SOB. Vital signs stable, see per flow chart. Patient reports Chest feels like when I had pneumonia, its hard to get a deep breath. This nurse instructed patient through pursed lipped breathing. Patient denies any sharp pains. Charge nurse notified of situation.
[2020-11-09] MEDS: AMITRIPTYLINE HCL 25 MG TABLET 50 MG PO (20:18)
[2020-11-09] MEDS: INSULIN GLARGINE (*BKC) 100 UNITS/ML 9 UNITS SUB-Q (20:23)
[2020-11-10] VITALS: BP 103/4; PULSE 70; RESP 14; TEMP 37.7; O2SAT 97
[2020-11-10] MEDS: metroNIDAZOLE 250 MG TABLET 500 MG PO ×3 (05:53→21:22)
[2020-11-10] MEDS: LEVOTHYROXINE SODIUM 112 MCG TABLET PO (05:53)
[2020-11-10 08:00] VITALS: BP 104/54; PULSE 56; RESP 20; TEMP 36.6; O2SAT 98
[2020-11-10] MEDS: POTASSIUM CHLORIDE 10 MEQ TABLET PO (09:01)
[2020-11-10] MEDS: PRAVASTATIN SODIUM 20 MG TABLET PO (09:01)
[2020-11-10] MEDS: PANTOPRAZOLE 40 MG TABLET PO (09:01)
[2020-11-10] MEDS: FUROSEMIDE 40 MG TABLET PO (09:01)
[2020-11-10] MEDS: RIVAROXABAN 10 MG TABLET 15 MG PO (09:01)
[2020-11-10] MEDS: MAGNESIUM OXIDE 400 MG TABLET PO (09:02)
[2020-11-10] MEDS: FERROUS SULFATE 324 MG TABLET PO (09:35)
[2020-11-10 09:36] VITALS: PULSE 60
[2020-11-10] MEDS: carvediloL 6.25 MG TABLET PO (09:36)
--- NOTE | 2020-11-10 09:47 | PC.NURSE ---
cnp aware of bp 104/54 and lisinopril held last 2 days. and he claims to hold. luz howard
--- NOTE | 2020-11-10 12:08 | PC.NURSE ---
accucheck @ 2270 112 and 6837 231 and scale was given @ this time.
[2020-11-10 14:12] LABS: Glucose Point of Care 231 (65-105)
[2020-11-10 14:12] LABS: Glucose Point of Care 112 (65-105)
[2020-11-10 14:12] LABS: Glucose Point of Care 181 (65-105)
[2020-11-10 14:12] LABS: Glucose Point of Care 227 (65-105)
[2020-11-10 14:17] LABS: Glucose Point of Care 80 (65-105)
[2020-11-10 14:18] LABS: Glucose Point of Care 187 (65-105)
[2020-11-10 14:19] LABS: Glucose Point of Care 186 (65-105)
[2020-11-10 16:00] VITALS: BP 121/44; PULSE 52; RESP 16; TEMP 37.1; O2SAT 96
[2020-11-10 17:01] LABS: Glucose Point of Care 213 (65-105)
[2020-11-10 17:03] VITALS: PULSE 51
[2020-11-10] MEDS: INSULIN GLARGINE (*BKC) 100 UNITS/ML 9 UNITS SUB-Q (21:21)
[2020-11-10] MEDS: AMITRIPTYLINE HCL 25 MG TABLET 50 MG PO (21:23)
[2020-11-10 21:37] LABS: Glucose Point of Care 302 (65-105)
[2020-11-11] VITALS: BP 113/51; PULSE 70; RESP 18; TEMP 36.2; O2SAT 91
[2020-11-11] MEDS: LEVOTHYROXINE SODIUM 112 MCG TABLET PO (06:02)
[2020-11-11] MEDS: metroNIDAZOLE 250 MG TABLET 500 MG PO ×3 (06:02→21:33)
[2020-11-11 07:57] LABS: Glucose Point of Care 130 (65-105)
[2020-11-11 08:00] VITALS: BP 104/46; PULSE 54; RESP 20; TEMP 37.1; O2SAT 98
[2020-11-11] MEDS: RIVAROXABAN 10 MG TABLET 15 MG PO (08:12)
--- NOTE | 2020-11-11 08:12 | PM.EVENT ---
Event Note Event Note Event Note: Nurse Gaby voiced concern for Pts HR being in the 40s last night and BP having a systolic around 100. I decreased Lasix and Lisinopril. Will see how Pt does overnight.
[2020-11-11] MEDS: PANTOPRAZOLE 40 MG TABLET PO (08:13)
[2020-11-11] MEDS: FERROUS SULFATE 324 MG TABLET PO (08:13)
[2020-11-11] MEDS: POTASSIUM CHLORIDE 10 MEQ TABLET PO (08:13)
[2020-11-11] MEDS: MAGNESIUM OXIDE 400 MG TABLET PO (08:14)
[2020-11-11] MEDS: PRAVASTATIN SODIUM 20 MG TABLET PO (08:14)
[2020-11-11 08:16] VITALS: PULSE 54
[2020-11-11] MEDS: carvediloL 6.25 MG TABLET PO ×2 (08:16→16:32)
[2020-11-11] MEDS: FUROSEMIDE 20 MG TABLET PO (08:21)
[2020-11-11] MEDS: lisinopriL 5 MG TABLET PO (08:21)
--- NOTE | 2020-11-11 09:30 | PC.NURSE ---
abd drg changed. drg had clear serous yellow/red. cleansed are and dry drg applied. site looks clean. no redness.
[2020-11-11 11:49] LABS: Glucose Point of Care 197 (65-105)
[2020-11-11 16:00] VITALS: BP 134/90; PULSE 64; RESP 20; TEMP 36.6; O2SAT 94
[2020-11-11 16:43] LABS: Glucose Point of Care 146 (65-105)
[2020-11-11] MEDS: ACETAMINOPHEN 500 MG TABLET 1000 MG PO (19:52)
[2020-11-11] MEDS: INSULIN GLARGINE (*BKC) 100 UNITS/ML 9 UNITS SUB-Q (21:26)
[2020-11-11] MEDS: AMITRIPTYLINE HCL 25 MG TABLET 50 MG PO (21:33)
[2020-11-11 21:49] LABS: Glucose Point of Care 306 (65-105)
[2020-11-12] VITALS: BP 131/59; PULSE 68; RESP 20; TEMP 36.4; O2SAT 98
[2020-11-12] MEDS: metroNIDAZOLE 250 MG TABLET 500 MG PO ×3 (06:08→20:42)
[2020-11-12] MEDS: LEVOTHYROXINE SODIUM 112 MCG TABLET PO (06:09)
[2020-11-12 07:40] VITALS: BP 119/54; PULSE 71; RESP 18; TEMP 36.5; O2SAT 99
[2020-11-12 07:41] LABS: Glucose Point of Care 99 (65-105)
[2020-11-12] MEDS: RIVAROXABAN 10 MG TABLET 15 MG PO (09:06)
[2020-11-12] MEDS: ACETAMINOPHEN 500 MG TABLET 1000 MG PO (09:07)
[2020-11-12 09:08] VITALS: PULSE 71
[2020-11-12] MEDS: PRAVASTATIN SODIUM 20 MG TABLET PO (09:08)
[2020-11-12] MEDS: MAGNESIUM OXIDE 400 MG TABLET PO (09:08)
[2020-11-12] MEDS: POTASSIUM CHLORIDE 10 MEQ TABLET PO (09:08)
[2020-11-12] MEDS: PANTOPRAZOLE 40 MG TABLET PO (09:08)
[2020-11-12] MEDS: FUROSEMIDE 20 MG TABLET PO (09:08)
[2020-11-12] MEDS: FERROUS SULFATE 324 MG TABLET PO (09:08)
[2020-11-12] MEDS: carvediloL 6.25 MG TABLET PO ×2 (09:08→16:44)
[2020-11-12 11:31] LABS: Glucose Point of Care 224 (65-105)
--- NOTE | 2020-11-12 13:35 | PC.NURSE ---
Dressing changed per orders.
[2020-11-12 15:54] VITALS: BP 124/69; PULSE 70; RESP 16; TEMP 36.7; O2SAT 95
[2020-11-12 16:44] VITALS: PULSE 70
[2020-11-12 16:49] LABS: Glucose Point of Care 284 (65-105)
[2020-11-12] MEDS: AMITRIPTYLINE HCL 25 MG TABLET 50 MG PO (20:43)
[2020-11-12] MEDS: INSULIN GLARGINE (*BKC) 100 UNITS/ML 9 UNITS SUB-Q (20:43)
[2020-11-12 20:48] LABS: Glucose Point of Care 242 (65-105)
--- NOTE | 2020-11-13 00:50 | PC.NURSE ---
Dressing to ABD dry and intact. Wound to superior to dressing open to air without redness.
[2020-11-13 00:55] VITALS: BP 105/60; PULSE 69; RESP 18; TEMP 36.4; O2SAT 97
[2020-11-13 05:50] LABS: Hematocrit 26.9 % (35.0-42.0); Hemoglobin 8.5 g/dL (11.7-13.8); Mean Corpuscular HGB Conc 31.6 g/dL (32.0-36.0); Mean Corpuscular Hemoglobin 29.9 pg (27.0-31.0); Mean Corpuscular Volume 94.7 fL (78.0-102.0); Platelet Count Result 165 K/mm3 (150-420); Red Blood Count 2.84 M/mm3 (4.20-5.40); Red Cell Distribution Width 13.8 % (11.6-14.4)
[2020-11-13] MEDS: metroNIDAZOLE 250 MG TABLET 500 MG PO (05:55)
[2020-11-13] MEDS: LEVOTHYROXINE SODIUM 112 MCG TABLET PO (05:55)
[2020-11-13 06:03] LABS: Anion Gap 3 mmol/L (8-16); Blood Urea Nitrogen 11 mg/dL (7-18); Calcium 7.7 mg/dL (8.5-10.1); Carbon Dioxide 28 mmol/L (21-32); Chloride 103 mmol/L (98-108); Estimated CRCL calculation 43 ml/min; Estimated Glomerular Filt Rate > 60; Glucose 89 mg/dL (70-99); Osmolality Calculated 276 mOsm/kg (285-295); Potassium 3.6 mmol/L (3.5-5.1); Sodium 134 mmol/L (136-145)
[2020-11-13 07:30] LABS: Glucose Point of Care 81 (65-105)
--- NOTE | 2020-11-13 07:46 | PC.NURSE ---
Up to commode, with SBA, used walker, able to get own pants down, soft formed BM noted, no liquid stool noted, to chair with SBA only, using walker, did assist with lio care, states can do this on her own at home
[2020-11-13 07:47] VITALS: BP 113/46; PULSE 70; RESP 18; TEMP 36.6; O2SAT 95
[2020-11-13 08:42] VITALS: PULSE 70
[2020-11-13] MEDS: carvediloL 6.25 MG TABLET PO (08:42)
[2020-11-13] MEDS: PANTOPRAZOLE 40 MG TABLET PO (08:43)
[2020-11-13] MEDS: FUROSEMIDE 20 MG TABLET PO (08:43)
[2020-11-13] MEDS: PRAVASTATIN SODIUM 20 MG TABLET PO (08:43)
[2020-11-13] MEDS: POTASSIUM CHLORIDE 10 MEQ TABLET PO (08:43)
[2020-11-13] MEDS: MAGNESIUM OXIDE 400 MG TABLET PO (08:43)
[2020-11-13] MEDS: FERROUS SULFATE 324 MG TABLET PO (08:43)
[2020-11-13] MEDS: RIVAROXABAN 10 MG TABLET 15 MG PO (08:44)
--- NOTE | 2020-11-13 09:23 | PC.NURSE ---
OT here to work with patient
--- NOTE | 2020-11-13 10:17 | PC.NURSE ---
Up in waite with physical therapy
[2020-11-13 11:27] LABS: Glucose Point of Care 225 (65-105)
--- NOTE | 2020-11-13 11:27 | PM.DS ---
DS: Admitting Diagnosis Admitting Diagnosis Admitting Diagnosis: Weakness, S/P Retrosigmoid Colitis, Small Bowel Obstruction. DS: Discharge Diagnosis Discharge Diagnosis (1) Weakness: Code(s): R53.1 - Weakness Status: Acute Assessment and Plan: Per PT notes Pt is safe to DC home, Pt has been eating well and her strength has improved, she is looking forward to returning to home. (2) Small bowel obstruction due to adhesions: Code(s): K56.50 - Intestinal adhesions [bands], unspecified as to partial versus complete obstruction Status: Acute Assessment and Plan: Abdominal x-ray on 10/31/2020 indicates Small bowel obstruction. CTA on 10/28 showed descending and rectosigmoid colitis with no evidence of ischemia, and interval development of a small bowel obstruction with distinct transition point in the mid ileum. 10/31/2020iagnostic laparoscopy, with laparoscopic lysis of adhesions and release of small-bowel obstruction. Completed findings-Inflammatory and old adhesions. The prior along the medial side of the sigmoid colon at the pelvic brim with a dense inflammatory adhesion to 1 loop of small bowel. The latter was longstanding omental adhesions to the anterior abdominal wall from the umbilicus anteriorly all the way down into the pelvis and into the right pelvic brim. Small bowel was probably was obstructed due to the change in position of the bowel with the inflammatory adhesion on the left and caught underneath the omental adhesions anteriorly 11/13/2020 Pt has not complained of any abdominal issues other than a little diarrhea which has improved and is soft formed today per operations staff specialist security. (3) Colitis: Code(s): K52.9 - Noninfective gastroenteritis and colitis, unspecified Status: Acute Assessment and Plan: CT of the abdomen on 10/28/2019 indicated Descending and rectosigmoid colonic colitis Completed 14 days of Imipenem .we will complete Flagyl for about 5-6 more days will in 11/13/20 Surgery was consulted while at [facility] Continue Metamucil 11/13/2020 Pt has not complained of any abdominal issues other than a little diarrhea which has improved and is soft formed today per operations staff specialist security. (4) Paroxysmal atrial flutter: Code(s): I48.92 - Unspecified atrial flutter Status: Chronic Assessment and Plan: Controlled Continue Xarelto MICHELLE on 12/17/2017 prior to cardioversion showed left atrial appendage thrombus 11/13/2020 no changes at this time. (5) Coronary artery disease: Qualifiers: Associated angina: without angina Coronary Disease-Associated Artery/Lesion type: unspecified vessel or lesion type [place] vs. transplanted heart: unspecified whether [place] or transplanted heart Qualified Code(s): I25.10 - Atherosclerotic heart disease of [place] coronary artery without angina pectoris Code(s): I25.10 - Atherosclerotic heart disease of [place] coronary artery without angina pectoris Status: Chronic Assessment and Plan: Continue pravastatin (6) Congestive heart failure: Qualifiers: Heart failure chronicity: chronic Heart failure type: unspecified Qualified Code(s): I50.9 - Heart failure, unspecified Code(s): I50.9 - Heart failure, unspecified Status: Chronic Assessment and Plan: Compensated Continue Lasix 40 mg daily 11/13/2020 d/t decreased HR and BP Lasix was decreased to 20 mg daily, Lisinopril changed to 5mg Daily, and no changes made to Coreg. (7) GERD (gastroesophageal reflux disease): Qualifiers: Esophagitis presence: without esophagitis Qualified Code(s): K21.9 - Gastro-esophageal reflux disease without esophagitis Code(s): K21.9 - Gastro-esophageal reflux disease without esophagitis Status: Acute Assessment and Plan: Continue pantoprazole (8) Pacemaker: Code(s): Z95.0 - Presence of cardiac pacemaker Status: Acute Assessment
--- NOTE | 2020-11-13 12:45 | PC.NURSE ---
Discharge to home via wheel chair with son, personal items in reach and no questions voiced regarding discharge instructions
--- NOTE | 2020-11-16 10:38 | PC.NURSE ---
Pt states she received and understood her discharge instructions. Has no comments regarding her care while she was here.
== END 2020-11-13 12:45 | disposition home or self-care (01) | DRG 948 ==
PROVIDERS: Nurse Practitioner Family; Admitting Provider Emergency Medicine; PCP Family Medicine; Visit Provider Emergency Medicine
DX: R53.1 Weakness (principal); K56.50 Intestinal adhesions [bands], unspecified as to partial versus complete obstruction; I13.0 Hypertensive heart and chronic kidney disease with heart failure and stage 1 through stage 4 chronic kidney disease, or unspecified chronic kidney disease; I48.92 Unspecified atrial flutter; K52.9 Noninfective gastroenteritis and colitis, unspecified; N18.30 Chronic kidney disease, stage 3 unspecified; I50.9 Heart failure, unspecified; E11.22 Type 2 diabetes mellitus with diabetic chronic kidney disease; I25.10 Atherosclerotic heart disease of native coronary artery without angina pectoris; E78.5 Hyperlipidemia, unspecified; E03.9 Hypothyroidism, unspecified; E11.42 Type 2 diabetes mellitus with diabetic polyneuropathy; K22.2 Esophageal obstruction; K21.9 Gastro-esophageal reflux disease without esophagitis; R13.10 Dysphagia, unspecified; R19.7 Diarrhea, unspecified; Z96.1 Presence of intraocular lens; Z79.01 Long term (current) use of anticoagulants; Z90.49 Acquired absence of other specified parts of digestive tract; Z95.1 Presence of aortocoronary bypass graft; Z98.42 Cataract extraction status, left eye; Z98.41 Cataract extraction status, right eye; Z95.0 Presence of cardiac pacemaker; Z80.0 Family history of malignant neoplasm of digestive organs; Z86.73 Personal history of transient ischemic attack (TIA), and cerebral infarction without residual deficits
CPT/HCPCS: 36415; 80048; 82948; 85027; 87324; 97110; 97161; 97165; 97530; 97535; A9270; J1815; J7030

== ENCOUNTER 2020-11-28 08:03 | Outpatient (CLI) | payer MEDICARE, SELFPAY ==
--- NOTE | ~2020-11-28 | XR_ITS ---
EXAMINATION: XR pelvis 1-2V DATE: 11/28/2020 08:42 INDICATION: Low back pain post fall one month prior TECHNIQUE: An anteroposterior view of the pelvis was obtained. COMPARISON: CT dated 10/28/2020 FINDINGS: Bone alignment is normal. Old healed fractures of the right superior and inferior pubic rami. No acut e fracture. Sacral arches are intact. Moderate bilateral hip and sacroiliac osteoarthritis. Severe lo wer lumbar spondylosis. Enthesophytes along the anterior iliac spine and bilateral greater trochanter s. Vascular calcifications in the pelvis and proximal thighs. Surgical clips in the left inguinal reg ion. IMPRESSION: 1. Old healed right superior and inferior pubic rami fractures. No acute osseous abnormality. 2. Moderate to severe degenerative skeletal changes as detailed above. Reviewed, dictated and finalized at location A. IMPRESSION: 1. Old healed right superior and inferior pubic rami fractures. No acute osseou s abnormality. 2. Moderate to severe degenerative skeletal changes as detailed above.
== END 2020-11-28 08:04 | disposition home or self-care (01) ==
LOC: CHSIMG 08:04
PROVIDERS: PCP Nurse Practitioner Family; Visit Provider Nurse Practitioner Family
DX: M54.5 Low back pain (principal)
CPT/HCPCS: 72170

== ENCOUNTER 2020-12-12 14:21 | Inpatient (IN) | payer MEDICARE, SELFPAY ==
--- NOTE | ~2020-12-12 | XR_ITS ---
EXAMINATION: XR shoulder LT min 2V DATE: 12/12/2020 15:42 INDICATION: Left shoulder injury. TECHNIQUE: 5 views of left shoulder were obtained. COMPARISON: Left shoulder radiographs 06/15/10 FINDINGS: Bone alignment is normal. No fracture. There is moderate osteoarthritis of glenohumeral jeff nt and severe osteoarthritis of acromioclavicular joint. There is calcific tendinitis of left rotator cuff. There is a left chest pacer. Median sternotomy wires and mediastinal surgical clips are seen, likely from prior coronary artery bypass grafting. IMPRESSION: 1. Polyarticular osteoarthritis. 2. Calcific tendinitis of left rotator cuff. Reviewed, dictated and finalized at location A.
--- NOTE | ~2020-12-12 | XR_ITS ---
EXAMINATION: XR hip LT 2V w AP pelvis DATE: 12/12/2020 15:42 INDICATION: Left hip injury. TECHNIQUE: An anteroposterior view pelvis and 3 views of left hip were obtained. COMPARISON: Pelvis radiograph 11/28/2020, CT abdomen and pelvis 10/21/2020 FINDINGS: There is lumbar dextrocurvature and severe lower lumbar spondylosis. There is a fracture de formity of the superior pubic ramus. There are old healed fractures of right superior and inferior pu bic rami. There is moderate osteoarthritis of the hips. There are surgical clips in left thigh and in guinal region. IMPRESSION: 1. Fracture deformity of left superior pubic ramus, which may be acute. 2. Moderate osteoarthritis of the hips. Reviewed, dictated and finalized at location A.
[2020-12-12 14:40] VITALS: BP 125/64; PULSE 76; RESP 20; TEMP 36.6; O2SAT 98
--- NOTE | 2020-12-12 14:47 | ECG_ITS ---
Measurements Intervals [place] Rate: 70 P: FL: 0 QRS: -71 QRSD: 221 T: 112 QT: 473 QTc: 511 Interpretive Statements ELECTRONIC VENTRICULAR PACEMAKER BASELINE ARTIFACT- I, II, III, AVR, AVL, AVF NO FURTHER INTERPRETATION IS POSSIBLE ATYPICAL ECG Electronically Signed On 12-13-2020 10:36:57 CDT by Jim Herr D.O.
[2020-12-12] MEDS: KETOROLAC 30 MG/ML VIAL (*BKC) IV PUSH (15:09)
[2020-12-12 15:14] LABS: Basophils Absolute Auto 0.02 K/mm3 (0.00-0.10); Basophils Percent Auto 0.3 % (0.0-1.0); Eosinophils Absolute Auto 0.09 K/mm3 (0.02-0.50); Eosinophils Percent Auto 1.1 % (1.0-6.0); Hematocrit 28.7 % (35.0-42.0); Hemoglobin 9.1 g/dL (11.7-13.8); Immature Granulocyte Absolute 0.05 K/mm3 (0.00-0.00); Immature Granulocyte Percent A 0.6 % (0.0-0.0); Lymphocytes Absolute Auto 2.24 K/mm3 (1.10-4.50); Lymphocytes Percent Auto 28.3 % (18.0-42.0); Mean Corpuscular HGB Conc 31.7 g/dL (32.0-36.0); Mean Corpuscular Hemoglobin 30.3 pg (27.0-31.0); Mean Corpuscular Volume 95.7 fL (78.0-102.0); Mean Platelet Volume 9.9 fl (9.2-11.8); Monocytes Absolute Auto 0.48 K/mm3 (0.10-0.90); Monocytes Percent Auto 6.1 % (2.0-11.0); Neutrophils Percent Auto 63.6 % (50.0-70.0); Platelet Count Result 231 K/mm3 (150-420); Red Cell Distribution Width 15.1 % (11.6-14.4); White Blood Count 7.9 K/mm3 (4.8-10.8)
[2020-12-12 15:28] LABS: BNP 105 pg/mL (0-100)
[2020-12-12 15:32] LABS: Alanine Aminotransferase 32 U/L (14-59); Albumin Level 2.3 g/dL (3.4-5.0); Alkaline Phosphatase 83 U/L (46-116); Anion Gap 2 mmol/L (8-16); Aspartate Amino Transferase 25 U/L (15-37); Bilirubin,Total 0.3 mg/dL (0.00-1.00); Blood Urea Nitrogen 17 mg/dL (7-18); Calcium 8.6 mg/dL (8.5-10.1); Carbon Dioxide 31 mmol/L (21-32); Chloride 100 mmol/L (98-108); Estimated CRCL calculation 27 ml/min; Estimated Glomerular Filt Rate 49; Glucose 147 mg/dL (70-99); Osmolality Calculated 280 mOsm/kg (285-295); Potassium 3.7 mmol/L (3.5-5.1); Sodium 133 mmol/L (136-145)
[2020-12-12 15:39] LABS: Lactic Acid Reflex 1.4 mmol/L (0.4-2.0)
[2020-12-12 15:40] VITALS: BP 106/79; PULSE 88; RESP 20; O2SAT 99
--- NOTE | 2020-12-12 15:56 | ED.FALL ---
HPI - Fall General Chief Complaint: Fall Stated Complaint: ambulance Source: patient, family and EMS Mode of arrival: EMS Limitations: no limitations History of Present Illness HPI Narrative: this an 85-year-old female presents after she sustained fall from standing position witnessed by her and they called EMS patient currently complaining of left hip pain and left shoulder pain did hit her head but no loss of consciousness no neurological deficits. The patient has a history of diabetes coronary artery disease atrial fibrillation, and history of CHF. Patient is currently on Xarelto, and Coreg for her CHF there is no chest pain no shortness of breath no abdominal pain has good range of motion in her left upper arm and shoulder although has tenderness and pain with movement of her left lower extremity in the hip area and is tender with palpation although she has a good range of motion it is painful with movement. No flank pain no dysuria no hematuria. MD complaint: fall Onset (ago): hour(s) Fall from: standing Fall witnessed: yes, by family Place fall occurred: home Loss of consciousness: none Prolonged down time: no Symptoms prior to fall: none Context: tripped/slipped Location of injury: pelvis Related Data Home Medications Medication Instructions Recorded Confirmed Ozempic 0.5 mg SUBCUT WEEKLY 10/21/20 11/30/20 Xarelto 15 mg PO DAILY 10/21/20 11/30/20 ferrous sulfate 27 mg PO BID 10/21/20 11/30/20 levothyroxine 112 mcg PO DAILY 10/21/20 11/30/20 potassium chloride 10 meq PO DAILY 10/21/20 11/30/20 pravastatin 20 mg PO DAILY 10/21/20 11/30/20 Allergies Allergy/AdvReac Type Severity Reaction Status Date / Time adhesive tape Allergy Severe BLISTERS Verified 12/12/20 15:16 amiodarone Allergy Severe N/V, Verified 12/12/20 15:16 HEADACHE, HOSPITALIZED atorvastatin Allergy Severe SWELLING Verified 12/12/20 15:16 butorphanol Allergy Severe RESTLESSNES Verified 12/12/20 15:16 S cerivastatin Allergy Severe ABDOMINAL Verified 12/12/20 15:16 PAIN, H/A clindamycin Allergy Severe TACHYCARDIA Verified 12/12/20 15:16 dexamethasone Allergy Severe IRRITATED Verified 12/12/20 15:16 EYES duloxetine Allergy Severe H/A Verified 12/12/20 15:16 gabapentin Allergy Severe CHF Verified 12/12/20 15:16 gemfibrozil Allergy Severe ELEVATED Verified 12/12/20 15:16 CHOLESTEROL guaifenesin Allergy Severe NERVOUSNESS Verified 12/12/20 15:16 hydrocodone Allergy Severe N/V Verified 12/12/20 15:16 isosorbide Allergy Severe H/A Verified 12/12/20 15:16 levofloxacin Allergy Severe VOMITING Verified 12/12/20 15:16 nifedipine Allergy Severe SWELLING Verified 12/12/20 15:16 nitroglycerin Allergy Severe VOMITING Verified 12/12/20 15:16 norfloxacin Allergy Severe SWELLING Verified 12/12/20 15:16 oxycodone Allergy Severe VOMITING Verified 12/12/20 15:16 phenylephrine Allergy Severe NERVOUSNESS Verified 12/12/20 15:16 phenylpropanolamine Allergy Severe NERVOUSNESS Verified 12/12/20 15:16 prednisone Allergy Severe H/A Verified 12/12/20 15:16 rofecoxib Allergy Severe UPSET Verified 12/12/20 15:16 STOMACH, CAN TAKE WITH MEALS tobramycin Allergy Severe IRRITATED Verified 12/12/20 15:16 EYES adhesive Allergy Intermediate Unknown Verified 12/12/20 15:16 chlorpheniramine [Ornade] Allergy Intermediate Unknown Verified 12/12/20 15:16 codeine Allergy Intermediate Unknown Verified 12/12/20 15:16 doxycycline Allergy Intermediate Unknown Verified 12/12/20 15:16 erythromycin base Allergy Intermediate Unknown Verified 12/12/20 15:16 flurbiprofen [Ansaid] Allergy Intermediate Unknown Verified 12/12/20 15:16 tetracycline Allergy Intermediate Unconscious Verified 12/12/20 15:16 tramadol [Ultram] Allergy Intermediate Unknown Verified 12/12/20 15:16 cephalexin Allergy Mild Rash Verified 12/12/20 15:16 ciprofloxacin Allergy Unknown Unknown Verified 12/12/20 15:16 diclofenac Allergy Unknown Unknown Verified 12/12/20 15:16 hydroxyzine Allergy
[2020-12-12 16:00] VITALS: BP 110/48; PULSE 70; RESP 18; TEMP 36; O2SAT 98
[2020-12-12 16:01] LABS: Add Urine Microscopic? YES; Appearance Urine Clear (Clear); Bilirubin Urine Negative (Negative); Blood Urine Negative (Negative); Color Urine Yellow (Yellow); Glucose Urine UA Negative (Negative); Ketones Urine Negative (Negative); Leukocyte Esterase Ur 3+ (Negative); Nitrate Urine Negative (Negative); Protein Urine Negative (Negative); Urobilinogen Urine 0.2 mg/dL (0.2-1.0); pH Urine 7.5 (5.0-8.0)
[2020-12-12 16:09] LABS: RBC Urine 0-2 /hpf (0-2); Squamous Epithelial Cell Urine Rare /hpf (Few)
[2020-12-12 16:10] LABS: Bacteria Urine Trace /hpf
[2020-12-12 16:36] VITALS: BP 105/70; PULSE 92; RESP 20; O2SAT 99
[2020-12-12 17:31] LABS: Glucose Point of Care 129 (65-105)
[2020-12-12] MEDS: RIVAROXABAN 15 MG TABLET PO (18:01)
[2020-12-12 18:27] VITALS: BMI 19.1
[2020-12-12] MEDS: SODIUM CHLORIDE 0.9% IV 1,000 ML 100 ML IV CONT (18:35)
[2020-12-12 20:00] VITALS: PULSE 70
[2020-12-12 20:47] VITALS: PULSE 70
[2020-12-12] MEDS: carvediloL 3.125 MG TABLET PO (20:47)
[2020-12-12] MEDS: AMITRIPTYLINE HCL 25 MG TABLET 50 MG PO (20:47)
[2020-12-12 20:53] LABS: Glucose Point of Care 267 (65-105)
[2020-12-12] MEDS: NITROFURANTOIN MONOHYD MACROCR 100 MG CAP PO (21:24)
[2020-12-12] MEDS: NITROFURANTOIN MONOHYD MACROCR 100 MG CAP (21:24)
[2020-12-12] MEDS: metroNIDAZOLE 250 MG TABLET 500 MG PO (21:25)
[2020-12-13] VITALS (7 sets, daily range): BP systolic 104–135; BP diastolic 61–82; PULSE 70–76; RESP 16–20; TEMP 36.5–36.8; O2SAT 96–100
[2020-12-13] MEDS: SODIUM CHLORIDE 0.9% IV 1,000 ML 100 ML IV CONT ×2 (04:34→22:30)
[2020-12-13] MEDS: metroNIDAZOLE 250 MG TABLET 500 MG PO ×3 (05:53→21:22)
[2020-12-13] MEDS: LEVOTHYROXINE SODIUM 112 MCG TABLET PO (05:53)
[2020-12-13] MEDS: ACETAMINOPHEN 325 MG TABLET 650 MG PO ×2 (05:53→18:52)
[2020-12-13 06:21] LABS: Basophils Absolute Auto 0.02 K/mm3 (0.00-0.10); Basophils Percent Auto 0.3 % (0.0-1.0); Eosinophils Absolute Auto 0.13 K/mm3 (0.02-0.50); Eosinophils Percent Auto 2.1 % (1.0-6.0); Hematocrit 26.2 % (35.0-42.0); Immature Granulocyte Absolute 0.02 K/mm3 (0.00-0.00); Immature Granulocyte Percent A 0.3 % (0.0-0.0); Lymphocytes Absolute Auto 2.28 K/mm3 (1.10-4.50); Lymphocytes Percent Auto 36.1 % (18.0-42.0); Mean Corpuscular HGB Conc 30.5 g/dL (32.0-36.0); Mean Corpuscular Hemoglobin 29.6 pg (27.0-31.0); Mean Platelet Volume 9.9 fl (9.2-11.8); Monocytes Absolute Auto 0.46 K/mm3 (0.10-0.90); Monocytes Percent Auto 7.3 % (2.0-11.0); Neutrophils Absolute Auto 3.4 K/mm3 (1.7-7.2); Neutrophils Percent Auto 53.9 % (50.0-70.0); Platelet Count Result 177 K/mm3 (150-420); Red Cell Distribution Width 15.3 % (11.6-14.4); White Blood Count 6.3 K/mm3 (4.8-10.8)
[2020-12-13 06:41] LABS: Alanine Aminotransferase 24 U/L (14-59); Alkaline Phosphatase 77 U/L (46-116); Anion Gap 3 mmol/L (8-16); Aspartate Amino Transferase 14 U/L (15-37); Bilirubin,Total 0.4 mg/dL (0.00-1.00); Blood Urea Nitrogen 17 mg/dL (7-18); Calcium 8.2 mg/dL (8.5-10.1); Carbon Dioxide 29 mmol/L (21-32); Chloride 102 mmol/L (98-108); Estimated CRCL calculation 33 ml/min; Estimated Glomerular Filt Rate 59; Glucose 102 mg/dL (70-99); Osmolality Calculated 279 mOsm/kg (285-295); Potassium 4.3 mmol/L (3.5-5.1); Sodium 134 mmol/L (136-145); Total Protein 5.2 g/dL (6.4-8.2)
[2020-12-13 08:11] LABS: Glucose Point of Care 155 (65-105)
[2020-12-13] MEDS: POTASSIUM CHLORIDE 10 MEQ TABLET PO (09:46)
[2020-12-13] MEDS: NITROFURANTOIN MONOHYD MACROCR 100 MG CAP PO ×2 (09:46→20:32)
[2020-12-13] MEDS: PANTOPRAZOLE 40 MG TABLET PO (09:46)
[2020-12-13] MEDS: carvediloL 3.125 MG TABLET PO ×2 (09:47→20:31)
[2020-12-13] MEDS: PRAVASTATIN SODIUM 20 MG TABLET PO (09:47)
[2020-12-13] MEDS: lisinopriL 5 MG TABLET PO (09:47)
[2020-12-13] MEDS: MAGNESIUM OXIDE 400 MG TABLET PO (09:47)
[2020-12-13] MEDS: FUROSEMIDE 20 MG TABLET PO (09:47)
[2020-12-13] MEDS: PSYLLIUM POWDER PACKET 1 PACKET PO (09:48)
[2020-12-13 12:11] LABS: Glucose Point of Care 176 (65-105)
--- NOTE | 2020-12-13 15:57 | PM.IMHP ---
H&P: HPI History of Present Illness Date/Time: 12/13/20 15:57 Dinorah Thorpe is an 85 year old female who comes to the hospital after having fallen from a standing position. Pt had pain to the Left hip and Lt shoulder. Imaging reports Pelvic Rami Fxs that are old and a possible new Rami Fx. Pt is here for transition into Swing Bed Program for PT/OT so that she may return to home with increased strenth and stamina. Pt has a PMHx that includes Small Bowel Obstruction, Colitis, ARF, Hyperkalemia, Hypokalemia, Paroxysmal A flutter, CAD. Septic shock, hyponatremia, CHF, Cardiomegaly, Breast Pain, Dysuria, Weakness, abnormal LFTs, A fib, Hyperlipidemia, Neuropathy, HTN, GERD, Rectal abnormality, Diarrhea, Diastolic dysfunction, Pacemaker, Hypothyroidism, chronic anticoagulation and has allergies to 40 medications. Pt is not complaining of any pain at this time. Allergies to 40 different medications <RUFINO Ventura - Last Filed: 12/13/20 16:49> Chief Complaint: Injury from Fall <RUFINO Ventura - Last Filed: 12/13/20 16:49> Review of Systems Constitutional: Constitutional: Reports no additional constitutional complaints, Denies chills, Denies fever(s) and Denies headache(s) <RUFINO Ventura - Last Filed: 12/13/20 16:49> ENT: Reports system reviewed and no additional complaints, except as documented, Denies vertigo, Denies dizziness and Denies dry mouth <RUFINO Ventura - Last Filed: 12/13/20 16:49> Cardiovascular: Cardiovascular: Reports no additional cardiovascular complaints <RUFINO Ventura - Last Filed: 12/13/20 16:49> Respiratory: Respiratory: Reports no additional respiratory complaints, Denies dyspnea and Denies dyspnea on exertion <RUFINO Ventura - Last Filed: 12/13/20 16:49> Gastrointestinal: Gastrointestinal: Reports no additional gastrointestinal complaints <RUFINO Ventura - Last Filed: 12/13/20 16:49> Genitourinary: Genitourinary: Reports no additional female genitourinary complaints <RUFINO Ventura - Last Filed: 12/13/20 16:49> Musculoskeletal: Comments: Pt has no complaints of pain at this time <RUFINO Ventura - Last Filed: 12/13/20 16:49> Neurologic: Reports system reviewed and no additional complaints, except as documented <RUFINO Ventura - Last Filed: 12/13/20 16:49> Psychiatric: Psychiatric: Reports no additional psychiatric complaints <RUFINO Ventura - Last Filed: 12/13/20 16:49> [facility] Past Medical History Medical History: Medical History (Updated 12/13/20 @ 16:47 by RUFINO Ventura) Cardiomegaly Chronic anemia Chronic anticoagulation 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trial flutter. CKD (chronic kidney disease) stage 3, GFR 30-59 ml/min Closed head injury Congestive heart failure Contusion of right shoulder Coronary artery disease Diabetes type 2, controlled Diarrhea Dysphagia Fall (~07/22/19) History of esophageal dilatation History of pacemaker History of TIA (transient ischemic attack) and stroke Hyperlipidemia associated with type 2 diabetes mellitus Hypertension Hypertension associated with stage 3 chronic kidney disease due to type 2 diabetes mellitus Hyponatremia Hypothyroidism Paroxysmal atrial flutter Peripheral sensory neuropathy due to type 2 diabetes mellitus Rectal bleeding Schatzki's ring of distal esophagus Trigger finger, right middle finger <RUFINO Ventura - Last Filed: 12/13/20 16:49> Surgical History Surgical History: Surgical History History of appendectomy History of arthroplasty of right knee History of cholecystectomy History of colonoscopy with polypectomy Last colonoscopy in 01/2020 with descending colon polyp biopsied and showing ulcerated tubulovillous adenoma with high-grade dysplasia. History of mitral valve repair 4 vessel CABG and Mitral Valve Repair at
[2020-12-13 16:56] LABS: Glucose Point of Care 223 (65-105)
[2020-12-13] MEDS: FERROUS SULFATE 324 MG TABLET PO (17:12)
[2020-12-13] MEDS: AMITRIPTYLINE HCL 25 MG TABLET 50 MG PO (20:22)
[2020-12-13 20:28] LABS: Glucose Point of Care 233 (65-105)
[2020-12-13] MEDS: RIVAROXABAN 15 MG TABLET PO (20:30)
[2020-12-14] VITALS: BP 107/50; PULSE 70; RESP 20; TEMP 36.2; O2SAT 95
[2020-12-14] MEDS: metroNIDAZOLE 250 MG TABLET 500 MG PO ×3 (05:57→20:46)
[2020-12-14] MEDS: LEVOTHYROXINE SODIUM 112 MCG TABLET PO (05:57)
[2020-12-14] MEDS: ACETAMINOPHEN 325 MG TABLET 650 MG PO ×2 (07:52→20:47)
[2020-12-14 08:00] VITALS: BP 115/50; PULSE 71; RESP 18; TEMP 36.3; O2SAT 100
[2020-12-14 08:08] LABS: Glucose Point of Care 140 (65-105)
[2020-12-14] MEDS: PRAVASTATIN SODIUM 20 MG TABLET PO (08:27)
[2020-12-14] MEDS: NITROFURANTOIN MONOHYD MACROCR 100 MG CAP PO ×2 (08:27→20:47)
[2020-12-14] MEDS: PSYLLIUM POWDER PACKET 1 PACKET PO (08:27)
[2020-12-14] MEDS: PANTOPRAZOLE 40 MG TABLET PO (08:27)
[2020-12-14 08:28] VITALS: PULSE 71
[2020-12-14] MEDS: lisinopriL 5 MG TABLET PO (08:28)
[2020-12-14] MEDS: MAGNESIUM OXIDE 400 MG TABLET PO (08:28)
[2020-12-14] MEDS: carvediloL 3.125 MG TABLET PO ×2 (08:28→20:47)
[2020-12-14] MEDS: POTASSIUM CHLORIDE 10 MEQ TABLET PO (08:28)
[2020-12-14] MEDS: FERROUS SULFATE 324 MG TABLET PO ×2 (08:28→17:47)
[2020-12-14] MEDS: FUROSEMIDE 20 MG TABLET PO (08:28)
[2020-12-14] MEDS: SODIUM CHLORIDE 0.9% IV 1,000 ML 100 ML IV CONT ×2 (08:34→20:57)
[2020-12-14 12:06] LABS: Glucose Point of Care 185 (65-105)
--- NOTE | 2020-12-14 13:34 | PM.IMPN ---
Progress Note: A&P Assessment and Plan (1) Closed pelvic fracture: Qualifiers: Encounter type: initial encounter Laterality: left Pelvic bone location: acetabulum Sublocation of acetabulum: other portion of acetabulum Qualified Code(s): S32.492A - Other specified fracture of left acetabulum, initial encounter for closed fracture Code(s): S32.9XXA - Fracture of unspecified parts of lumbosacral spine and pelvis, initial encounter for closed fracture Status: Acute Assessment and Plan: 12/13/2020 Lt shoulder imaging report IMPRESSION: 1. Polyarticular osteoarthritis. 2. Calcific tendinitis of left rotator cuff. Pelvis imaging report IMPRESSION: 1. Fracture deformity of left superior pubic ramus, which may be acute. 2. Moderate osteoarthritis of the hips. Pelvis imaging report from 11/28/2020 IMPRESSION: 1. Old healed right superior and inferior pubic rami fractures. No acute osseous abnormality. 2. Moderate to severe degenerative skeletal changes as detailed above. Pain management with Toradol, Pt to work with PT/OT (2) Acute dehydration: Code(s): E86.0 - Dehydration Status: Acute Assessment and Plan: 12/13/2020 IVF Saline at 100/h, Balance rehydration while monitoring HTN, Encourage PO fluid intake, monitor for fluid overload (3) Chronic anticoagulation: Code(s): Z79.01 - [facility] (current) use of anticoagulants Status: Acute Assessment and Plan: 12/13/2020 Continue Xarelto (4) Hypothyroidism: Qualifiers: Hypothyroidism type: unspecified Qualified Code(s): E03.9 - Hypothyroidism, unspecified Code(s): E03.9 - Hypothyroidism, unspecified Status: Acute Assessment and Plan: 12/13/2020 Continue Levothyroxine (5) Diabetes type 2, controlled: Qualifiers: Diabetes mellitus assisted insulin use: with assisted use Diabetes mellitus complication status: without complication Qualified Code(s): E11.9 - Type 2 diabetes mellitus without complications; Z79.4 - terminologist (current) use of insulin Code(s): E11.9 - Type 2 diabetes mellitus without complications Status: Acute Assessment and Plan: 12/13/2020 SSI, Hypoglycemic protocol in place, Accu-checks, Diabetic diet (6) GERD (gastroesophageal reflux disease): Qualifiers: Esophagitis presence: without esophagitis Qualified Code(s): K21.9 - Gastro-esophageal reflux disease without esophagitis Code(s): K21.9 - Gastro-esophageal reflux disease without esophagitis Status: Acute Assessment and Plan: 12/13/2020 Continue Protonix (7) Coronary artery disease: Qualifiers: Coronary Disease-Associated Artery/Lesion type: unspecified vessel or lesion type [place] vs. transplanted heart: unspecified whether [place] or transplanted heart Associated angina: without angina Qualified Code(s): I25.10 - Atherosclerotic heart disease of [place] coronary artery without angina pectoris Code(s): I25.10 - Atherosclerotic heart disease of [place] coronary artery without angina pectoris Status: Chronic Assessment and Plan: 12/13/2020 Continue Coreg, Pravastatin (8) Chronic anemia: Code(s): D64.9 - Anemia, unspecified Status: Acute Assessment and Plan: 12/13/2020 Current H/H 8/26.2, monitor levels, appears to be stable chronic condition at this time, continue farrous sulfate (9) Hypertension: Code(s): I10 - Essential (primary) hypertension Status: Acute Assessment and Plan: 12/13/2020 continue Lisinopril, Lasix, Potassium, monitor VS, make changes to medications as needed. Subjective Date/time seen: 12/14/20 13:34 Pt states she feels good. She complains of minor left hip/pelvic pain that starts at the left hip and radiates to the pubic bone. Pt states this is mild. She is able to get up and walk about her room with minimal pain as well. She is working with PT/OT and looking forward to building up strength
[2020-12-14 16:00] VITALS: BP 134/48; PULSE 70; RESP 16; TEMP 36.8; O2SAT 97
[2020-12-14 17:07] LABS: Glucose Point of Care 129 (65-105)
[2020-12-14 20:00] VITALS: PULSE 68; RESP 17; O2SAT 97
[2020-12-14 20:47] VITALS: PULSE 84
[2020-12-14] MEDS: AMITRIPTYLINE HCL 25 MG TABLET 50 MG PO (20:47)
[2020-12-14] MEDS: RIVAROXABAN 10 MG TABLET 15 MG PO (20:48)
[2020-12-14 21:12] LABS: Glucose Point of Care 169 (65-105)
--- NOTE | 2020-12-14 23:37 | PC.NURSE ---
Dr. Lai notified of pt's IV site being occluded. New orders received and noted.
[2020-12-15] VITALS: BP 114/51; PULSE 70; RESP 16; TEMP 36.4; O2SAT 98
[2020-12-15] MEDS: metroNIDAZOLE 250 MG TABLET 500 MG PO (05:33)
[2020-12-15] MEDS: LEVOTHYROXINE SODIUM 112 MCG TABLET PO (05:33)
[2020-12-15 05:44] LABS: Hematocrit 25.9 % (35.0-42.0); Hemoglobin 8.1 g/dL (11.7-13.8); Mean Corpuscular HGB Conc 31.3 g/dL (32.0-36.0); Mean Corpuscular Hemoglobin 30.1 pg (27.0-31.0); Mean Corpuscular Volume 96.3 fL (78.0-102.0); Mean Platelet Volume 9.4 fl (9.2-11.8); Platelet Count Result 155 K/mm3 (150-420); Red Blood Count 2.69 M/mm3 (4.20-5.40); Red Cell Distribution Width 15.6 % (11.6-14.4); White Blood Count 4.2 K/mm3 (4.8-10.8)
[2020-12-15 06:34] LABS: Anion Gap 8 mmol/L (8-16); Blood Urea Nitrogen 14 mg/dL (7-18); Calcium 7.9 mg/dL (8.5-10.1); Carbon Dioxide 25 mmol/L (21-32); Chloride 104 mmol/L (98-108); Estimated CRCL calculation 36 ml/min; Estimated Glomerular Filt Rate > 60; Glucose 98 mg/dL (70-99); Osmolality Calculated 284 mOsm/kg (285-295); Potassium 3.6 mmol/L (3.5-5.1); Sodium 137 mmol/L (136-145)
[2020-12-15 07:25] LABS: Glucose Point of Care 117 (65-105)
[2020-12-15 07:29] VITALS: BP 136/55; PULSE 70; RESP 18; TEMP 36; O2SAT 100
[2020-12-15] MEDS: FERROUS SULFATE 324 MG TABLET PO (07:58)
[2020-12-15 08:00] VITALS: BP 136/55; PULSE 70; RESP 18; TEMP 35.9; O2SAT 100
[2020-12-15] MEDS: lisinopriL 5 MG TABLET PO (08:51)
[2020-12-15] MEDS: FUROSEMIDE 20 MG TABLET PO (08:52)
[2020-12-15] MEDS: carvediloL 3.125 MG TABLET PO (08:52)
[2020-12-15] MEDS: MAGNESIUM OXIDE 400 MG TABLET PO (08:52)
[2020-12-15] MEDS: PANTOPRAZOLE 40 MG TABLET PO (08:53)
[2020-12-15] MEDS: NITROFURANTOIN MONOHYD MACROCR 100 MG CAP PO (08:53)
[2020-12-15] MEDS: PRAVASTATIN SODIUM 20 MG TABLET PO (08:53)
[2020-12-15] MEDS: POTASSIUM CHLORIDE 10 MEQ TABLET PO (08:53)
[2020-12-15 11:49] LABS: Glucose Point of Care 229 (65-105)
--- NOTE | 2020-12-15 13:01 | P.DS_ITS ---
DS: Admitting Diagnosis Admitting Diagnosis Admitting Diagnosis: Pelvis fracture DS: Discharge Diagnosis Discharge Diagnosis (1) Closed pelvic fracture: Qualifiers: Encounter type: initial encounter Laterality: left Pelvic bone location: acetabulum Sublocation of acetabulum: other portion of acetabulum Qualified Code(s): S32.492A - Other specified fracture of left acetabulum, initial encounter for closed fracture Code(s): S32.9XXA - Fracture of unspecified parts of lumbosacral spine and pelvis, initial encounter for closed fracture Status: Acute Assessment and Plan: * Lt shoulder imaging report IMPRESSION: 1. Polyarticular osteoarthritis. 2. Calcific tendinitis of left rotator cuff. Pelvis imaging report IMPRESSION: 1. Fracture deformity of left superior pubic ramus, which may be acute. 2. Moderate osteoarthritis of the hips. Pelvis imaging report from * 11/28/2020 IMPRESSION: 1. Old healed right superior and inferior pubic rami fractures. No acute osseous abnormality. 2. Moderate to severe degenerative skeletal changes as detailed above. * Pain management with Toradol, Pt to work with PT/OT (2) Acute dehydration: Code(s): E86.0 - Dehydration Status: Acute Assessment and Plan: * Resolved * Encourage PO fluid intake, monitor for fluid overload (3) Chronic anticoagulation: Code(s): Z79.01 - termination clerk (current) use of anticoagulants Status: Acute Assessment and Plan: * Continue Xarelto (4) Hypothyroidism: Qualifiers: Hypothyroidism type: unspecified Qualified Code(s): E03.9 - Hypothyroidism, unspecified Code(s): E03.9 - Hypothyroidism, unspecified Status: Acute Assessment and Plan: * Continue Levothyroxine (5) Diabetes type 2, controlled: Qualifiers: Diabetes mellitus complication status: without complication Diabetes mellitus marine oil terminal superintendent insulin use: with marine oil terminal superintendent use Qualified Code(s): E11.9 - Type 2 diabetes mellitus without complications; Z79.4 - longterm (current) use of insulin Code(s): E11.9 - Type 2 diabetes mellitus without complications Status: Acute Assessment and Plan: * SSI, Hypoglycemic protocol in place, Accu-checks, Diabetic diet (6) GERD (gastroesophageal reflux disease): Qualifiers: Esophagitis presence: without esophagitis Qualified Code(s): K21.9 - Gastro-esophageal reflux disease without esophagitis Code(s): K21.9 - Gastro-esophageal reflux disease without esophagitis Status: Acute Assessment and Plan: * Continue Protonix (7) Coronary artery disease: Qualifiers: Associated angina: without angina Coronary Disease-Associated A rtery/Lesion type: unspecified vessel or lesion type [place] vs. transplanted heart: unspecified whether [place] or transplanted heart Qualified Code(s): I25.10 - Atherosclerotic heart disease of [place] coronary artery without angina pectoris Code(s): I25.10 - Atherosclerotic heart disease of [place] coronary artery without angina pectoris Status: Chronic Assessment and Plan: * Continue Coreg, Pravastatin (8) Chronic anemia: Code(s): D64.9 - Anemia, unspecified Status: Acute Assessment and Plan: * Stable, monitor levels, appears to be stable chronic condition at this time, continue ferrous sulfate (9) Hypertension: Code(s): I10 - Essential (primary) hypertension Status: Acute Assessment and Plan: * continue Lisinopril, Lasix, Potassium, monitor VS, make changes to medications
--- NOTE | 2020-12-15 13:01 | PM.DS ---
DS: Admitting Diagnosis Admitting Diagnosis Admitting Diagnosis: Pelvis fracture DS: Discharge Diagnosis Discharge Diagnosis (1) Closed pelvic fracture: Qualifiers: Encounter type: initial encounter Laterality: left Pelvic bone location: acetabulum Sublocation of acetabulum: other portion of acetabulum Qualified Code(s): S32.492A - Other specified fracture of left acetabulum, initial encounter for closed fracture Code(s): S32.9XXA - Fracture of unspecified parts of lumbosacral spine and pelvis, initial encounter for closed fracture Status: Acute Assessment and Plan: Lt shoulder imaging report IMPRESSION: 1. Polyarticular osteoarthritis. 2. Calcific tendinitis of left rotator cuff. Pelvis imaging report IMPRESSION: 1. Fracture deformity of left superior pubic ramus, which may be acute. 2. Moderate osteoarthritis of the hips. Pelvis imaging report from 11/28/2020 IMPRESSION: 1. Old healed right superior and inferior pubic rami fractures. No acute osseous abnormality. 2. Moderate to severe degenerative skeletal changes as detailed above. Pain management with Toradol, Pt to work with PT/OT (2) Acute dehydration: Code(s): E86.0 - Dehydration Status: Acute Assessment and Plan: Resolved Encourage PO fluid intake, monitor for fluid overload (3) Chronic anticoagulation: Code(s): Z79.01 - intermediate (current) use of anticoagulants Status: Acute Assessment and Plan: Continue Xarelto (4) Hypothyroidism: Qualifiers: Hypothyroidism type: unspecified Qualified Code(s): E03.9 - Hypothyroidism, unspecified Code(s): E03.9 - Hypothyroidism, unspecified Status: Acute Assessment and Plan: Continue Levothyroxine (5) Diabetes type 2, controlled: Qualifiers: Diabetes mellitus complication status: without complication Diabetes mellitus prison insulin use: with termite renewal inspector use Qualified Code(s): E11.9 - Type 2 diabetes mellitus without complications; Z79.4 - intermediate (current) use of insulin Code(s): E11.9 - Type 2 diabetes mellitus without complications Status: Acute Assessment and Plan: SSI, Hypoglycemic protocol in place, Accu-checks, Diabetic diet (6) GERD (gastroesophageal reflux disease): Qualifiers: Esophagitis presence: without esophagitis Qualified Code(s): K21.9 - Gastro-esophageal reflux disease without esophagitis Code(s): K21.9 - Gastro-esophageal reflux disease without esophagitis Status: Acute Assessment and Plan: Continue Protonix (7) Coronary artery disease: Qualifiers: Associated angina: without angina Coronary Disease-Associated Artery/Lesion type: unspecified vessel or lesion type [place] vs. transplanted heart: unspecified whether [place] or transplanted heart Qualified Code(s): I25.10 - Atherosclerotic heart disease of [place] coronary artery without angina pectoris Code(s): I25.10 - Atherosclerotic heart disease of [place] coronary artery without angina pectoris Status: Chronic Assessment and Plan: Continue Coreg, Pravastatin (8) Chronic anemia: Code(s): D64.9 - Anemia, unspecified Status: Acute Assessment and Plan: Stable, monitor levels, appears to be stable chronic condition at this time, continue ferrous sulfate (9) Hypertension: Code(s): I10 - Essential (primary) hypertension Status: Acute Assessment and Plan: continue Lisinopril, Lasix, Potassium, monitor VS, make changes to medications as needed. DS: Summary Hospital Course Reason for hospitalization: this an 85-year-old female presents after she sustained a mechanical fall on 12/12/20 .she then complaining of left hip pain and left shoulder she admits to hitting her head but no loss of consciousness no neurological deficits. The patient has a history of diabetes coronary artery disease atrial fibrillation, and histor
--- NOTE | 2020-12-15 13:05 | PC.NURSE ---
Discharging Pt to skilled swing bed service.
== END 2020-12-15 14:05 | disposition swing bed (61) | DRG 536 ==
LOC: CHSED 16:03 → CHS2ND 16:32
PROVIDERS: Nurse Practitioner Family; Admitting Provider Emergency Medicine; Emergency Provider Emergency Medicine; Visit Provider Emergency Medicine
DX: S32.512A Fracture of superior rim of left pubis, initial encounter for closed fracture (principal); I13.0 Hypertensive heart and chronic kidney disease with heart failure and stage 1 through stage 4 chronic kidney disease, or unspecified chronic kidney disease; I48.92 Unspecified atrial flutter; I50.9 Heart failure, unspecified; N18.30 Chronic kidney disease, stage 3 unspecified; I25.10 Atherosclerotic heart disease of native coronary artery without angina pectoris; D64.9 Anemia, unspecified; E78.5 Hyperlipidemia, unspecified; E03.9 Hypothyroidism, unspecified; E11.42 Type 2 diabetes mellitus with diabetic polyneuropathy; E11.22 Type 2 diabetes mellitus with diabetic chronic kidney disease; M16.0 Bilateral primary osteoarthritis of hip; K21.9 Gastro-esophageal reflux disease without esophagitis; K22.2 Esophageal obstruction; M75.32 Calcific tendinitis of left shoulder; M17.12 Unilateral primary osteoarthritis, left knee; M19.012 Primary osteoarthritis, left shoulder; W19.XXXA Unspecified fall, initial encounter; Z98.42 Cataract extraction status, left eye; Z98.41 Cataract extraction status, right eye; Z96.1 Presence of intraocular lens; Z79.02 Long term (current) use of antithrombotics/antiplatelets; Z95.0 Presence of cardiac pacemaker; Z95.1 Presence of aortocoronary bypass graft; Z86.73 Personal history of transient ischemic attack (TIA), and cerebral infarction without residual deficits; Z86.010 Personal history of colon polyps; Z90.710 Acquired absence of both cervix and uterus; Z90.722 Acquired absence of ovaries, bilateral; Z90.49 Acquired absence of other specified parts of digestive tract; Z80.0 Family history of malignant neoplasm of digestive organs; N39.0 Urinary tract infection, site not specified
CPT/HCPCS: 36415; 73030; 73502; 80048; 80053; 81001; 83605; 83880; 84484; 85025; 85027; 87040; 87077; 87086; 87088; 87186; 93005; 96374; 97110; 97161; 97165; 97530; 97535; 99285; A9270; J1815; J1885; J7030

== ENCOUNTER 2020-12-15 13:06 | Inpatient (IN) | payer MEDICARE, SELFPAY ==
--- NOTE | 2020-12-15 14:18 | WPDREHABHP ---
H&P: HPI History of Present Illness Date/Time: 12/15/20 14:18 this an 85-year-old female presents after she sustained a mechanical fall on 12/12/20 .she then complaining of left hip pain and left shoulder she admits to hitting her head but no loss of consciousness no neurological deficits. The patient has a history of diabetes coronary artery disease atrial fibrillation, and history of CHF. Patient is currently on Xarelto for her A. fib, and Coreg for her heart failure .there was no chest pain no shortness of breath no abdominal pain had good range of motion in her left upper arm and shoulder although she had tenderness and pain with movement of her left lower extremity in the hip area and tenderness with palpation . Imaging indicated Fracture deformity of left superior pubic ramus. Patient admitted in swing bed for rehabilitation due to decreased balance decreased mobility in severe limited function endurant and/or mobility. The patient denies SOB, CP, palpitation, extremity numbness, lightheadedness, dizziness, constipation, diarrhea, chills, or fever. Patient will require a 2 wheel walker to perform ADLs in the home due to pelvic fracture/weakness/to prevent falls. Patient has a history of multiple falls while on a blood thinner. Patient is not able to perform ADLs using a cane or a four-wheel walker due to increased fall risk with ADLs. Functional mobility deficiency will be sufficiently resolved by using 2 wheeled walker. Patient is able to safely use 2 wheeled walker and agrees to using 2 wheeled walker. Disposition; patient will transition into a swing bed This document was completed by using [employer] speech recognition software, therefore outsewer variances may occur. Despite proofreading, typographical errors may also occur. Chief Complaint: Generalized weakness Review of Systems Review of Systems All systems reviewed & are unremarkable except as noted in HPI and below (A 14 organ system Review of Systems was performed and pertinent positives i) [facility] Past Medical History Medical History (Updated 12/13/20 @ 16:47 by RUFINO Ventura) Cardiomegaly Chronic anemia Chronic anticoagulation 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trial flutter. CKD (chronic kidney disease) stage 3, GFR 30-59 ml/min Closed head injury Congestive heart failure Contusion of right shoulder Coronary artery disease Diabetes type 2, controlled Diarrhea Dysphagia Fall (~07/22/19) History of esophageal dilatation History of pacemaker History of TIA (transient ischemic attack) and stroke Hyperlipidemia associated with type 2 diabetes mellitus Hypertension Hypertension associated with stage 3 chronic kidney disease due to type 2 diabetes mellitus Hyponatremia Hypothyroidism Paroxysmal atrial flutter Peripheral sensory neuropathy due to type 2 diabetes mellitus Rectal bleeding Schatzki's ring of distal esophagus Trigger finger, right middle finger Surgical History Surgical History History of appendectomy History of arthroplasty of right knee History of cholecystectomy History of colonoscopy with polypectomy Last colonoscopy in 01/2020 with descending colon polyp biopsied and showing ulcerated tubulovillous adenoma with high-grade dysplasia. History of mitral valve repair 4 vessel CABG and Mitral Valve Repair at [facility] in 1995. History of phacoemulsification of cataract of both eyes with intraocular lens implantation History of total abdominal hysterectomy and bilateral salpingo-oophorectomy S/P CABG (coronary artery bypass graft) 4 vessel CABG and Mitral Valve Repair at [facility] in 1995. Family History Family History Mother Carcinoma of colon Father Family history of coronary artery disease Father Family history of coronary artery disease Other Heart disea
[2020-12-15 14:36] VITALS: BP 136/50; PULSE 70; RESP 18; TEMP 36.4; O2SAT 100
[2020-12-15 14:47] VITALS: BMI 21.4
--- NOTE | 2020-12-15 14:53 | ADMGEN ---
This patient, Dinorah Thorpe, was admitted to 2nd Floor Room 208-2. Patient/family oriented to hospital policies and general routines including ID bracelet, bed and alarms, visiting hours, pain management, procedures, bathroom and other care routines, personal items, smoking policy, room service/diet, and visiting hours. Reviewed Skilled Swing Bed status. Information on how to activate the Rapid Response Team has been discussed. Patient/Family are encouraged to report perceived risks to care and to ask questions if they do not understand what they are told or what they should do.
[2020-12-15 15:45] VITALS: BP 118/54; PULSE 76; RESP 18; TEMP 36.8; O2SAT 100
[2020-12-15] MEDS: RIVAROXABAN 10 MG TABLET 15 MG PO (17:13)
[2020-12-15 17:17] LABS: Glucose Point of Care 161 (65-105)
--- NOTE | 2020-12-15 19:15 | PC.NURSE ---
Patient in bed watching TV. Call light in reach.
[2020-12-15 20:56] LABS: Glucose Point of Care 291 (65-105)
[2020-12-15] MEDS: metroNIDAZOLE 250 MG TABLET 500 MG PO (21:22)
[2020-12-15] MEDS: NITROFURANTOIN MONOHYD MACROCR 100 MG CAP PO (21:22)
[2020-12-15 21:23] VITALS: PULSE 70
[2020-12-15] MEDS: carvediloL 3.125 MG TABLET PO (21:23)
[2020-12-15] MEDS: AMITRIPTYLINE HCL 25 MG TABLET BY MOUTH (21:23)
--- NOTE | 2020-12-15 22:55 | PC.NURSE ---
Patient asleep. No apparent distress. Call light and needed items within reach.
[2020-12-16] VITALS: BP 114/50; PULSE 72; RESP 16; TEMP 36.2; O2SAT 98
[2020-12-16] MEDS: LEVOTHYROXINE SODIUM 112 MCG TABLET PO (05:36)
[2020-12-16] MEDS: metroNIDAZOLE 250 MG TABLET 500 MG PO ×3 (05:36→21:19)
[2020-12-16 07:40] LABS: Glucose Point of Care 122 (65-105)
[2020-12-16 08:00] VITALS: BP 107/50; PULSE 70; RESP 16; TEMP 36.4; O2SAT 96
[2020-12-16] MEDS: MAGNESIUM OXIDE 400 MG TABLET PO (08:54)
[2020-12-16] MEDS: POTASSIUM CHLORIDE 10 MEQ TABLET PO (08:54)
[2020-12-16] MEDS: NITROFURANTOIN MONOHYD MACROCR 100 MG CAP PO ×2 (08:55→21:19)
[2020-12-16] MEDS: carvediloL 3.125 MG TABLET PO ×2 (08:55→21:18)
[2020-12-16] MEDS: lisinopriL 5 MG TABLET PO (08:55)
[2020-12-16] MEDS: PANTOPRAZOLE 40 MG TABLET PO (08:55)
[2020-12-16] MEDS: PRAVASTATIN SODIUM 20 MG TABLET PO (08:56)
[2020-12-16] MEDS: FUROSEMIDE 20 MG TABLET PO (08:56)
[2020-12-16] MEDS: FERROUS SULFATE 324 MG TABLET PO (08:59)
--- NOTE | 2020-12-16 09:05 | PC.NURSE ---
Physical therapy in to ambulate patient
[2020-12-16 11:39] LABS: Glucose Point of Care 131 (65-105)
[2020-12-16] MEDS: ACETAMINOPHEN 325 MG TABLET 650 MG PO (14:47)
[2020-12-16 15:28] VITALS: BP 130/28; PULSE 72; RESP 16; TEMP 36.2; O2SAT 95
[2020-12-16] MEDS: RIVAROXABAN 10 MG TABLET 15 MG PO (16:44)
[2020-12-16 17:03] LABS: Glucose Point of Care 278 (65-105)
[2020-12-16 21:18] VITALS: PULSE 76
[2020-12-16 21:33] LABS: Glucose Point of Care 221 (65-105)
[2020-12-16] MEDS: AMITRIPTYLINE HCL 25 MG TABLET BY MOUTH (21:48)
[2020-12-17] VITALS: BP 116/60; PULSE 70; RESP 18; TEMP 36.8; O2SAT 97
[2020-12-17] MEDS: LEVOTHYROXINE SODIUM 112 MCG TABLET PO (05:57)
[2020-12-17] MEDS: metroNIDAZOLE 250 MG TABLET 500 MG PO ×2 (05:57→16:35)
[2020-12-17 07:32] LABS: Glucose Point of Care 178 (65-105)
[2020-12-17 08:00] VITALS: BP 103/40; PULSE 69; RESP 16; TEMP 36.6; O2SAT 98
[2020-12-17] MEDS: FUROSEMIDE 20 MG TABLET PO (08:55)
[2020-12-17] MEDS: carvediloL 3.125 MG TABLET PO ×2 (08:55→20:57)
[2020-12-17] MEDS: lisinopriL 5 MG TABLET PO (08:56)
[2020-12-17] MEDS: MAGNESIUM OXIDE 400 MG TABLET PO (08:56)
[2020-12-17] MEDS: POTASSIUM CHLORIDE 10 MEQ TABLET PO (08:56)
[2020-12-17] MEDS: NITROFURANTOIN MONOHYD MACROCR 100 MG CAP PO ×2 (08:56→20:56)
[2020-12-17] MEDS: PANTOPRAZOLE 40 MG TABLET PO (08:57)
[2020-12-17] MEDS: PSYLLIUM POWDER PACKET 1 PACKET PO (08:57)
[2020-12-17] MEDS: PRAVASTATIN SODIUM 20 MG TABLET PO (08:57)
[2020-12-17] MEDS: FERROUS SULFATE 324 MG TABLET PO (09:05)
[2020-12-17] MEDS: ONDANSETRON HCL ODT 4 MG TABLET PO (13:07)
[2020-12-17 16:00] VITALS: BP 118/55; PULSE 74; RESP 16; TEMP 36.6; O2SAT 97
[2020-12-17] MEDS: RIVAROXABAN 10 MG TABLET 15 MG PO (16:35)
[2020-12-17 16:56] LABS: Glucose Point of Care 258 (65-105)
[2020-12-17 16:56] LABS: Glucose Point of Care 101 (65-105)
[2020-12-17] MEDS: AMITRIPTYLINE HCL 25 MG TABLET BY MOUTH (20:42)
[2020-12-17 20:54] LABS: Glucose Point of Care 219 (65-105)
[2020-12-18] VITALS: BP 116/56; PULSE 69; RESP 20; TEMP 36.3; O2SAT 98
[2020-12-18] MEDS: metroNIDAZOLE 250 MG TABLET 500 MG PO ×4 (00:13→22:00)
[2020-12-18] MEDS: LEVOTHYROXINE SODIUM 112 MCG TABLET PO (05:56)
[2020-12-18 07:34] LABS: Glucose Point of Care 143 (65-105)
[2020-12-18 08:00] VITALS: BP 121/53; PULSE 73; RESP 18; TEMP 36.6; O2SAT 98
[2020-12-18] MEDS: carvediloL 3.125 MG TABLET PO ×2 (08:59→20:44)
[2020-12-18] MEDS: FUROSEMIDE 20 MG TABLET PO (09:00)
[2020-12-18] MEDS: PRAVASTATIN SODIUM 20 MG TABLET PO (09:01)
[2020-12-18] MEDS: NITROFURANTOIN MONOHYD MACROCR 100 MG CAP PO ×2 (09:03→20:43)
[2020-12-18] MEDS: MAGNESIUM OXIDE 400 MG TABLET PO (09:03)
[2020-12-18] MEDS: PANTOPRAZOLE 40 MG TABLET PO (09:03)
[2020-12-18] MEDS: POTASSIUM CHLORIDE 10 MEQ TABLET PO (09:03)
[2020-12-18] MEDS: lisinopriL 5 MG TABLET PO (09:03)
[2020-12-18] MEDS: FERROUS SULFATE 324 MG TABLET PO (09:24)
[2020-12-18 11:34] LABS: Glucose Point of Care 284 (65-105)
[2020-12-18 16:00] VITALS: BP 120/54; PULSE 74; RESP 16; TEMP 36.6; O2SAT 97
[2020-12-18] MEDS: RIVAROXABAN 10 MG TABLET 15 MG PO (16:34)
[2020-12-18 16:43] LABS: Glucose Point of Care 130 (65-105)
[2020-12-18 20:42] LABS: Glucose Point of Care 232 (65-105)
[2020-12-18] MEDS: AMITRIPTYLINE HCL 25 MG TABLET BY MOUTH (20:43)
[2020-12-18 20:44] VITALS: PULSE 69
[2020-12-18 23:49] VITALS: BP 119/48; PULSE 69; RESP 20; TEMP 36.3; O2SAT 94
[2020-12-19] MEDS: metroNIDAZOLE 250 MG TABLET 500 MG PO ×3 (05:58→21:07)
[2020-12-19] MEDS: LEVOTHYROXINE SODIUM 112 MCG TABLET PO (05:58)
[2020-12-19 07:51] LABS: Glucose Point of Care 166 (65-105)
[2020-12-19 08:00] VITALS: BP 115/61; PULSE 70; RESP 18; TEMP 36.4; O2SAT 95
--- NOTE | 2020-12-19 08:00 | PC.NURSE ---
patient able to get in to a sitting position from laying unassisted this am, no assistance needed to get to standing position, used walker and able to get to commode, assistance with getting pants up given, to chair for breakfast
[2020-12-19 08:43] VITALS: PULSE 80
[2020-12-19] MEDS: NITROFURANTOIN MONOHYD MACROCR 100 MG CAP PO ×2 (08:43→21:05)
[2020-12-19] MEDS: carvediloL 3.125 MG TABLET PO ×2 (08:43→21:05)
[2020-12-19] MEDS: PANTOPRAZOLE 40 MG TABLET PO (08:43)
[2020-12-19] MEDS: MAGNESIUM OXIDE 400 MG TABLET PO (08:43)
[2020-12-19] MEDS: FERROUS SULFATE 324 MG TABLET PO (08:43)
[2020-12-19] MEDS: FUROSEMIDE 20 MG TABLET PO (08:43)
[2020-12-19] MEDS: POTASSIUM CHLORIDE 10 MEQ TABLET PO (08:43)
[2020-12-19] MEDS: PRAVASTATIN SODIUM 20 MG TABLET PO (08:44)
[2020-12-19] MEDS: lisinopriL 5 MG TABLET PO (08:44)
--- NOTE | 2020-12-19 09:32 | PC.NURSE ---
patient up from chair to commode unassisted, did need help to get her legs in to the bed upon return to the bed from commode, side rails up and call light in reach of patient
--- NOTE | 2020-12-19 11:45 | PC.NURSE ---
Up from bed to commode then to chair for lunch, tolerated well, no assistance needed to get out of bed, none to ambulate to chair or commode, uses walker appropriately and also waits to sit till can feel chair or bed to back of her legs
[2020-12-19 12:03] LABS: Glucose Point of Care 260 (65-105)
--- NOTE | 2020-12-19 14:01 | PC.NURSE ---
back to bed from chair, tolerated well, assistance needed to get legs in to bed
[2020-12-19 16:00] VITALS: BP 109/84; PULSE 78; RESP 20; TEMP 36.8; O2SAT 98
[2020-12-19 16:32] LABS: Glucose Point of Care 187 (65-105)
[2020-12-19] MEDS: RIVAROXABAN 10 MG TABLET 15 MG PO (17:18)
[2020-12-19] MEDS: ONDANSETRON HCL ODT 4 MG TABLET PO (18:14)
--- NOTE | 2020-12-19 18:15 | PC.NURSE ---
Patient reports she suddenly felt nauseous and got sick. Patient had small emesis with food particles present. Pt. cont. to feel nauseous, given zofran odt per order. Clean gown and linen applied. Call light at side. HOB elevated.
--- NOTE | 2020-12-19 19:30 | PC.NURSE ---
States feeling better, no further nausea
[2020-12-19 21:05] VITALS: PULSE 80
[2020-12-19] MEDS: AMITRIPTYLINE HCL 25 MG TABLET BY MOUTH (21:05)
[2020-12-19 22:30] LABS: Glucose Point of Care 275 (65-105)
[2020-12-20] VITALS: BP 127/52; PULSE 70; RESP 20; TEMP 36.6; O2SAT 100
[2020-12-20] MEDS: metroNIDAZOLE 250 MG TABLET 500 MG PO (05:57)
[2020-12-20] MEDS: LEVOTHYROXINE SODIUM 112 MCG TABLET PO (05:57)
[2020-12-20 07:35] LABS: Glucose Point of Care 175 (65-105)
[2020-12-20 07:40] VITALS: BP 115/56; PULSE 70; RESP 15; TEMP 36.7; O2SAT 97
[2020-12-20] MEDS: lisinopriL 5 MG TABLET PO (08:19)
[2020-12-20] MEDS: PSYLLIUM POWDER PACKET 1 PACKET PO (08:19)
[2020-12-20 08:20] VITALS: PULSE 85
[2020-12-20] MEDS: ONDANSETRON HCL ODT 4 MG TABLET PO (08:20)
[2020-12-20] MEDS: carvediloL 3.125 MG TABLET PO ×2 (08:20→21:01)
[2020-12-20] MEDS: PRAVASTATIN SODIUM 20 MG TABLET PO (08:20)
[2020-12-20] MEDS: FERROUS SULFATE 324 MG TABLET PO (08:20)
[2020-12-20] MEDS: MAGNESIUM OXIDE 400 MG TABLET PO (08:20)
[2020-12-20] MEDS: PANTOPRAZOLE 40 MG TABLET PO (08:20)
[2020-12-20] MEDS: FUROSEMIDE 20 MG TABLET PO (08:20)
[2020-12-20] MEDS: POTASSIUM CHLORIDE 10 MEQ TABLET PO (08:20)
[2020-12-20 11:49] LABS: Glucose Point of Care 327 (65-105)
--- NOTE | 2020-12-20 13:18 | PM.EVENT ---
Event Note Event Note Event Note: UA with the growth of VRE patient did receive 3day nitrofurantoin, which is sensitive to. It is recommended that patient receive 7 -10 days of nitrofurantoin. Restarted antibiotic and recollected UA with culture. Patient was diagnosed with colitis back in October it was recommended by surgeon that she complete 5 days of Flagyl. I will discontinue Flagyl patient has received full dose.
[2020-12-20 14:54] LABS: Estimated CRCL calculation 29 ml/min; Estimated Glomerular Filt Rate 48
[2020-12-20 16:00] VITALS: BP 107/55; PULSE 83; RESP 18; TEMP 37.1; O2SAT 93
[2020-12-20] MEDS: RIVAROXABAN 10 MG TABLET 15 MG PO (16:49)
[2020-12-20 16:51] LABS: Add Urine Microscopic? YES; Appearance Urine Clear (Clear); Bilirubin Urine Negative (Negative); Blood Urine 2+ (Negative); Color Urine Yellow (Yellow); Glucose Urine UA Negative (Negative); Ketones Urine Negative (Negative); Leukocyte Esterase Ur 3+ LEU/UL (Negative); Nitrate Urine Negative (Negative); Protein Urine Negative (Negative); Urobilinogen Urine 0.2 mg/dL (0.2-1.0)
[2020-12-20 16:53] LABS: Glucose Point of Care 178 (65-105)
[2020-12-20 16:57] LABS: Bacteria Urine 1+ /hpf; Squamous Epithelial Cell Urine Few /hpf (Few); WBC Urine 16-20 /hpf (0-3)
--- NOTE | 2020-12-20 19:03 | PC.NURSE ---
report to SALVADOR Ramsay
[2020-12-20 20:26] VITALS: BP 124/44; PULSE 69; RESP 18; TEMP 37; O2SAT 93
[2020-12-20 21:01] VITALS: PULSE 69
[2020-12-20] MEDS: AMITRIPTYLINE HCL 25 MG TABLET BY MOUTH (21:01)
[2020-12-20] MEDS: AMOXICILLIN 500 MG CAPSULE PO (21:02)
[2020-12-20 21:09] LABS: Glucose Point of Care 264 (65-105)
[2020-12-21] VITALS: BP 116/43; PULSE 70; RESP 20; TEMP 36.6; O2SAT 96
[2020-12-21] MEDS: ACETAMINOPHEN 325 MG TABLET 650 MG PO (00:11)
--- NOTE | 2020-12-21 00:12 | PC.NURSE ---
Pt c/o bilateral leg pain; Pt given tylenol 650 mg PO to relieve leg pain.
--- NOTE | 2020-12-21 03:08 | PC.NURSE ---
Pt asleep and no signs of discomfort noted.
--- NOTE | 2020-12-21 04:15 | PC.NURSE ---
Pt up to the commode with assist of one. Pt voided 350 ml of clear, deonte urine with a small amount of slightly blood tinged mucous stool. Pt back to bed with assist of one.
[2020-12-21 05:43] LABS: Hematocrit 26.8 % (35.0-42.0); Hemoglobin 8.3 g/dL (11.7-13.8); Mean Corpuscular Hemoglobin 29.9 pg (27.0-31.0); Mean Corpuscular Volume 96.4 fL (78.0-102.0); Platelet Count Result 230 K/mm3 (150-420); Red Blood Count 2.78 M/mm3 (4.20-5.40); Red Cell Distribution Width 16.8 % (11.6-14.4); White Blood Count 5.8 K/mm3 (4.8-10.8)
[2020-12-21 06:04] LABS: Alanine Aminotransferase 19 U/L (14-59); Albumin Level 2.1 g/dL (3.4-5.0); Alkaline Phosphatase 94 U/L (46-116); Aspartate Amino Transferase 17 U/L (15-37); Bilirubin,Total 0.3 mg/dL (0.00-1.00); Blood Urea Nitrogen 19 mg/dL (7-18); Calcium 8.5 mg/dL (8.5-10.1); Carbon Dioxide 29 mmol/L (21-32); Estimated CRCL calculation 34 ml/min; Estimated Glomerular Filt Rate 58; Glucose 141 mg/dL (70-99); Total Protein 5.7 g/dL (6.4-8.2)
[2020-12-21 06:09] LABS: Anion Gap 4 mmol/L (8-16); Chloride 100 mmol/L (98-108); Osmolality Calculated 280 mOsm/kg (285-295); Potassium 3.9 mmol/L (3.5-5.1); Sodium 133 mmol/L (136-145)
[2020-12-21] MEDS: LEVOTHYROXINE SODIUM 112 MCG TABLET PO (06:29)
[2020-12-21] MEDS: AMOXICILLIN 500 MG CAPSULE PO ×3 (06:33→21:25)
--- NOTE | 2020-12-21 06:33 | PC.NURSE ---
Pt given synthroid 112 mcg and amoxil 500 mg PO as ordered.
[2020-12-21 07:38] LABS: Glucose Point of Care 188 (65-105)
[2020-12-21 07:42] VITALS: BP 108/58; PULSE 70; RESP 18; TEMP 36.3; O2SAT 93
[2020-12-21 08:46] VITALS: PULSE 86
[2020-12-21] MEDS: MAGNESIUM OXIDE 400 MG TABLET PO (08:46)
[2020-12-21] MEDS: FERROUS SULFATE 324 MG TABLET PO (08:46)
[2020-12-21] MEDS: carvediloL 3.125 MG TABLET PO ×2 (08:46→20:28)
[2020-12-21] MEDS: PRAVASTATIN SODIUM 20 MG TABLET PO (08:46)
[2020-12-21] MEDS: PANTOPRAZOLE 40 MG TABLET PO (08:46)
[2020-12-21] MEDS: FUROSEMIDE 20 MG TABLET PO (08:47)
[2020-12-21] MEDS: PSYLLIUM POWDER PACKET 1 PACKET PO (08:47)
[2020-12-21] MEDS: lisinopriL 5 MG TABLET PO (08:47)
[2020-12-21] MEDS: POTASSIUM CHLORIDE 10 MEQ TABLET PO (08:47)
[2020-12-21 11:53] LABS: Glucose Point of Care 357 (65-105)
[2020-12-21 16:00] VITALS: BP 121/94; PULSE 78; RESP 20; TEMP 36.6; O2SAT 98
[2020-12-21 16:59] LABS: Glucose Point of Care 112 (65-105)
[2020-12-21] MEDS: RIVAROXABAN 10 MG TABLET 15 MG PO (17:45)
[2020-12-21 20:28] VITALS: PULSE 78
[2020-12-21] MEDS: AMITRIPTYLINE HCL 25 MG TABLET BY MOUTH (20:28)
[2020-12-21 20:38] LABS: Glucose Point of Care 180 (65-105)
[2020-12-22] VITALS: BP 117/58; PULSE 70; RESP 16; TEMP 37.1; O2SAT 97
[2020-12-22] MEDS: AMOXICILLIN 500 MG CAPSULE PO (05:44)
[2020-12-22] MEDS: LEVOTHYROXINE SODIUM 112 MCG TABLET PO (05:44)
[2020-12-22 07:45] LABS: Glucose Point of Care 214 (65-105)
[2020-12-22 08:00] VITALS: BP 88/65; PULSE 72; RESP 18; TEMP 36.9; O2SAT 100
[2020-12-22] MEDS: FERROUS SULFATE 324 MG TABLET PO (09:37)
[2020-12-22] MEDS: FUROSEMIDE 20 MG TABLET PO (09:37)
[2020-12-22] MEDS: carvediloL 3.125 MG TABLET PO (09:37)
[2020-12-22] MEDS: MAGNESIUM OXIDE 400 MG TABLET PO (09:38)
[2020-12-22] MEDS: lisinopriL 5 MG TABLET PO (09:38)
[2020-12-22] MEDS: PANTOPRAZOLE 40 MG TABLET PO (09:38)
[2020-12-22] MEDS: PRAVASTATIN SODIUM 20 MG TABLET PO (09:39)
[2020-12-22] MEDS: POTASSIUM CHLORIDE 10 MEQ TABLET PO (09:39)
--- NOTE | 2020-12-22 10:39 | PM.DS ---
DS: Admitting Diagnosis Admitting Diagnosis Admitting Diagnosis: Pelvis Fx DS: Discharge Diagnosis Discharge Diagnosis (1) Hypertension: Code(s): I10 - Essential (primary) hypertension Status: Acute Assessment and Plan: Stable Continue lisinopril, Lasix Vital signs as ordered Will adjust medication as needed 12/22/2020 no adjustments made to medications today (2) Chronic anemia: Code(s): D64.9 - Anemia, unspecified Status: Acute Assessment and Plan: Chronic Stable Continue iron supplement Hemoglobin hematocrit 8.1 and 25.9. Appears to be patient's baseline No apparent active bleeding noted 12/22/2020 H/H 8.3/26.8 Stable (3) Closed pelvic fracture: Qualifiers: Encounter type: initial encounter Laterality: left Pelvic bone location: acetabulum Sublocation of acetabulum: other portion of acetabulum Qualified Code(s): S32.492A - Other specified fracture of left acetabulum, initial encounter for closed fracture Code(s): S32.9XXA - Fracture of unspecified parts of lumbosacral spine and pelvis, initial encounter for closed fracture Status: Acute Assessment and Plan: Lt shoulder imaging report IMPRESSION: 1. Polyarticular osteoarthritis. 2. Calcific tendinitis of left rotator cuff. Pelvis imaging report IMPRESSION: 1. Fracture deformity of left superior pubic ramus, which may be acute. 2. Moderate osteoarthritis of the hips. Pelvis imaging report from 11/28/2020 IMPRESSION: 1. Old healed right superior and inferior pubic rami fractures. No acute osseous abnormality. 2. Moderate to severe degenerative skeletal changes as detailed above. Pain management , Pt to work with PT/OT 12/22/2020 Pt has done well with PT/OT and will have a rolling walker on DC home. (4) UTI (urinary tract infection): Qualifiers: Hematuria presence: without hematuria Urinary tract infection type: site unspecified Qualified Code(s): N39.0 - Urinary tract infection, site not specified Code(s): N39.0 - Urinary tract infection, site not specified Status: Acute Assessment and Plan: UA with leukocytes WBCs trace of bacteria Macrobid started on 12/12/2020 will discontinue on 12/19/2020 UA culture pending 12/22/2020 Urine Cx from 12/20/2020 still pending (5) Weakness: Code(s): R53.1 - Weakness Status: Acute Assessment and Plan: ? Exhibit tolerance during physical activity as evidenced by a normal fluctuation of vital signs during physical activity. ? Patient will be ability to perform required activities of daily living. ? Provide appropriate nutrition for healing and strength. ? Use appropriate to prevent falls. ? Continue physical therapy/occupational therapy. 12/22/2020 Pt has done well with PT/OT (6) Atrial flutter: Code(s): I48.92 - Unspecified atrial flutter Status: Acute Assessment and Plan: Controlled Continue Xarelto and carvedilol Will discuss with family member the use of Xarelto. Patient is a high risk for falls. With multiple history of falls 12/22/2020 continue with Xarelto (7) Hypothyroidism: Qualifiers: Hypothyroidism type: unspecified Qualified Code(s): E03.9 - Hypothyroidism, unspecified Code(s): E03.9 - Hypothyroidism, unspecified Status: Acute Assessment and Plan: Continue Synthroid (8) Coronary artery disease: Qualifiers: Associated angina: without angina Coronary Disease-Associated Artery/Lesion type: unspecified vessel or lesion type [place] vs. transplanted heart: unspecified whether [place] or transplanted heart Qualified Code(s): I25.10 - Atherosclerotic heart disease of [place] coronary artery without angina pectoris Code(s): I25.10 - Atherosclerotic heart disease of [place] coronary artery without angina pectoris Status: Chronic Assessment and Plan: Continue atorvastatin (9) GERD (gastroesophageal reflux disease):
[2020-12-22 11:33] LABS: Glucose Point of Care 306 (65-105)
--- NOTE | 2020-12-22 14:08 | PC.NURSE ---
1325 dc to home and into son's care. wc to personal auto. dc instructions went over. vocalizes an understanding.
--- NOTE | 2020-12-23 10:00 | PC.NURSE ---
Pt states she received and understood her discharge instructions. Pt has no other comments.
== END 2020-12-22 13:25 | disposition home or self-care (01) | DRG 560 ==
PROVIDERS: Nurse Practitioner; Admitting Provider Emergency Medicine; Visit Provider Emergency Medicine
DX: S32.512D Fracture of superior rim of left pubis, subsequent encounter for fracture with routine healing (principal); I48.92 Unspecified atrial flutter; I13.0 Hypertensive heart and chronic kidney disease with heart failure and stage 1 through stage 4 chronic kidney disease, or unspecified chronic kidney disease; N39.0 Urinary tract infection, site not specified; Z16.21 Resistance to vancomycin; B95.2 Enterococcus as the cause of diseases classified elsewhere; I50.9 Heart failure, unspecified; N18.30 Chronic kidney disease, stage 3 unspecified; E11.22 Type 2 diabetes mellitus with diabetic chronic kidney disease; E11.42 Type 2 diabetes mellitus with diabetic polyneuropathy; D64.9 Anemia, unspecified; I25.10 Atherosclerotic heart disease of native coronary artery without angina pectoris; E78.5 Hyperlipidemia, unspecified; E03.9 Hypothyroidism, unspecified; K22.2 Esophageal obstruction; W19.XXXD Unspecified fall, subsequent encounter; Z79.02 Long term (current) use of antithrombotics/antiplatelets; Z86.73 Personal history of transient ischemic attack (TIA), and cerebral infarction without residual deficits; Z95.0 Presence of cardiac pacemaker; Z90.49 Acquired absence of other specified parts of digestive tract; Z90.710 Acquired absence of both cervix and uterus; Z90.722 Acquired absence of ovaries, bilateral; Z98.42 Cataract extraction status, left eye; Z98.41 Cataract extraction status, right eye; Z96.1 Presence of intraocular lens
CPT/HCPCS: 36415; 80053; 81001; 82565; 82948; 85027; 87086; 87088; 97110; 97140; 97161; 97165; 97530; 97535; A9270; J1815

== ENCOUNTER 2021-01-24 13:59 | Emergency (ER) | payer MEDICARE, SELFPAY ==
--- NOTE | 2021-01-24 14:30 | ED.GIBLEED ---
HPI - GI Bleed General Chief complaint: GI Bleed Stated complaint: blood in stool Time Seen by Provider: 01/24/21 14:30 Source: patient and family Mode of arrival: ambulatory Limitations: no limitations History of Present Illness HPI Narrative: Patient comes in after having several loose stools last pm and this am. Following this, starting last pm, she has had several loose dark old bloody stools, she was incontinent of much of this. She states she has been quite weak since this blood loss. Bleeding is estimated to have been moderately severe from rectum, not caused by any known cause, intermittent, and ongoing. Nothing decreased the bleeding at home. Actual blood loss amount is unknown. Related Data Home Medications Medication Instructions Recorded Confirmed Ozempic 0.5 mg SUBCUT WEEKLY 10/21/20 01/24/21 Xarelto 15 mg PO DAILY 10/21/20 01/24/21 levothyroxine 112 mcg PO DAILY 10/21/20 01/24/21 potassium chloride 10 meq PO DAILY 10/21/20 01/24/21 pravastatin 20 mg PO DAILY 10/21/20 01/24/21 Allergies Allergy/AdvReac Type Severity Reaction Status Date / Time adhesive tape Allergy Severe BLISTERS Verified 12/12/20 15:16 amiodarone Allergy Severe N/V, Verified 12/12/20 15:16 HEADACHE, HOSPITALIZED atorvastatin Allergy Severe SWELLING Verified 12/12/20 15:16 butorphanol Allergy Severe RESTLESSNES Verified 12/12/20 15:16 S cerivastatin Allergy Severe ABDOMINAL Verified 12/12/20 15:16 PAIN, H/A clindamycin Allergy Severe TACHYCARDIA Verified 12/12/20 15:16 dexamethasone Allergy Severe IRRITATED Verified 12/12/20 15:16 EYES duloxetine Allergy Severe H/A Verified 12/12/20 15:16 gabapentin Allergy Severe CHF Verified 12/12/20 15:16 gemfibrozil Allergy Severe ELEVATED Verified 12/12/20 15:16 CHOLESTEROL guaifenesin Allergy Severe NERVOUSNESS Verified 12/12/20 15:16 hydrocodone Allergy Severe N/V Verified 12/12/20 15:16 isosorbide Allergy Severe H/A Verified 12/12/20 15:16 levofloxacin Allergy Severe VOMITING Verified 12/12/20 15:16 nifedipine Allergy Severe SWELLING Verified 12/12/20 15:16 nitroglycerin Allergy Severe VOMITING Verified 12/12/20 15:16 norfloxacin Allergy Severe SWELLING Verified 12/12/20 15:16 oxycodone Allergy Severe VOMITING Verified 12/12/20 15:16 phenylephrine Allergy Severe NERVOUSNESS Verified 12/12/20 15:16 phenylpropanolamine Allergy Severe NERVOUSNESS Verified 12/12/20 15:16 prednisone Allergy Severe H/A Verified 12/12/20 15:16 rofecoxib Allergy Severe UPSET Verified 12/12/20 15:16 STOMACH, CAN TAKE WITH MEALS tobramycin Allergy Severe IRRITATED Verified 12/12/20 15:16 EYES adhesive Allergy Intermediate Unknown Verified 12/12/20 15:16 chlorpheniramine [Ornade] Allergy Intermediate Unknown Verified 12/12/20 15:16 codeine Allergy Intermediate Unknown Verified 12/12/20 15:16 doxycycline Allergy Intermediate Unknown Verified 12/12/20 15:16 erythromycin base Allergy Intermediate Unknown Verified 12/12/20 15:16 flurbiprofen [Ansaid] Allergy Intermediate Unknown Verified 12/12/20 15:16 tetracycline Allergy Intermediate Unconscious Verified 12/12/20 15:16 tramadol [Ultram] Allergy Intermediate Unknown Verified 12/12/20 15:16 cephalexin Allergy Mild Rash Verified 12/12/20 15:16 ciprofloxacin Allergy Unknown Unknown Verified 12/12/20 15:16 diclofenac Allergy Unknown Unknown Verified 12/12/20 15:16 hydroxyzine Allergy Unknown Unknown Verified 12/12/20 15:16 Penicillins Allergy Unknown Unknown Verified 12/12/20 15:16 propoxyphene Allergy Unknown Unknown Verified 12/12/20 15:16 terfenadine Allergy Unknown Unknown Verified 12/12/20 15:16 enalaprilat AdvReac Severe COUGH Verified 12/12/20 15:16 meperidine AdvReac Severe H/A Verified 12/12/20 15:16 Review of Systems Constitutional: Constitutional: Reports fatigue and Reports weakness Eyes: Eyes: Reports no additional eye complaints ENT: Reports system reviewed and no additional complaints, except as documented Cardiov
[2021-01-24 14:54] LABS: Basophils Absolute Auto 0.02 K/mm3 (0.00-0.10); Basophils Percent Auto 0.4 % (0.0-1.0); Eosinophils Absolute Auto 0.07 K/mm3 (0.02-0.50); Eosinophils Percent Auto 1.5 % (1.0-6.0); Hematocrit 29.7 % (35.0-42.0); Hemoglobin 9.5 g/dL (11.7-13.8); Immature Granulocyte Absolute 0.02 K/mm3 (0.00-0.00); Immature Granulocyte Percent A 0.4 % (0.0-0.0); Lymphocytes Absolute Auto 1.32 K/mm3 (1.10-4.50); Lymphocytes Percent Auto 28.7 % (18.0-42.0); Mean Corpuscular Hemoglobin 30.5 pg (27.0-31.0); Mean Corpuscular Volume 95.5 fL (78.0-102.0); Mean Platelet Volume 9.3 fl (9.2-11.8); Monocytes Absolute Auto 0.36 K/mm3 (0.10-0.90); Monocytes Percent Auto 7.8 % (2.0-11.0); Neutrophils Absolute Auto 2.8 K/mm3 (1.7-7.2); Neutrophils Percent Auto 61.2 % (50.0-70.0); Platelet Count Result 187 K/mm3 (150-420); Red Blood Count 3.11 M/mm3 (4.20-5.40); Red Cell Distribution Width 14.1 % (11.6-14.4); White Blood Count 4.6 K/mm3 (4.8-10.8)
[2021-01-24] MEDS: LACTATED RINGERS 1,000 ML 500 ML IV CONT (15:08)
[2021-01-24 15:10] VITALS: BP 129/54; PULSE 70; RESP 20; TEMP 36.7; O2SAT 100
[2021-01-24 15:12] LABS: INR 1.1; Prothrombin Time 11.3 Seconds (9.50-12.10)
[2021-01-24 15:21] LABS: Alanine Aminotransferase 23 U/L (14-59); Albumin Level 2.9 g/dL (3.4-5.0); Alkaline Phosphatase 87 U/L (46-116); Anion Gap 9 mmol/L (8-16); Aspartate Amino Transferase 18 U/L (15-37); Bilirubin,Total 0.2 mg/dL (0.00-1.00); Blood Urea Nitrogen 22 mg/dL (7-18); Calcium 8.7 mg/dL (8.5-10.1); Carbon Dioxide 27 mmol/L (21-32); Chloride 99 mmol/L (98-108); Estimated CRCL calculation 29 ml/min; Estimated Glomerular Filt Rate 52; Glucose 109 mg/dL (70-99); Osmolality Calculated 284 mOsm/kg (285-295); Potassium 4.1 mmol/L (3.5-5.1); Sodium 135 mmol/L (136-145); Total Protein 6.3 g/dL (6.4-8.2)
[2021-01-24 15:22] LABS: Partial Thromboplastin Time 26.2 SEC (23.90-30.70)
[2021-01-24 17:00] VITALS: BP 142/83; PULSE 71; RESP 20; O2SAT 100
[2021-01-24 17:50] VITALS: BP 139/49; PULSE 71; RESP 20; O2SAT 96
[2021-01-24] MEDS: LOPERAMIDE HCL 2 MG CAPSULE 4 MG PO (18:10)
[2021-01-24 18:20] VITALS: BP 124/65; PULSE 74; RESP 20; O2SAT 96
[2021-01-24 18:30] VITALS: PULSE 72; RESP 20; TEMP 36.9; O2SAT 96
[2021-01-24 19:00] LABS: Add Urine Microscopic? YES; Appearance Urine Clear (Clear); Bilirubin Urine Negative (Negative); Blood Urine Negative (Negative); Color Urine Yellow (Yellow); Glucose Urine UA Negative (Negative); Ketones Urine Negative (Negative); Leukocyte Esterase Ur 1+ (Negative); Nitrate Urine Negative (Negative); Protein Urine Negative (Negative); Urobilinogen Urine 0.2 mg/dL (0.2-1.0)
--- NOTE | 2021-01-24 19:01 | PC.NURSE ---
1800 pt had 2 large loose bowel movements Imodium given
[2021-01-24 19:04] LABS: RBC Urine 0-2 /hpf (0-2)
[2021-01-24 19:05] LABS: Bacteria Urine 4+ /hpf; Squamous Epithelial Cell Urine Few /hpf (Few)
[2021-01-24 19:06] LABS: Occult Blood Positive (Negative)
== END 2021-01-24 18:45 | disposition home or self-care (01) ==
PROVIDERS: Emergency Provider Emergency Medicine; PCP Internal Medicine
DX: E11.9 Type 2 diabetes mellitus without complications (principal); R19.7 Diarrhea, unspecified; Z79.01 Long term (current) use of anticoagulants; I12.9 Hypertensive chronic kidney disease with stage 1 through stage 4 chronic kidney disease, or unspecified chronic kidney disease; N18.30 Chronic kidney disease, stage 3 unspecified; I50.9 Heart failure, unspecified
CPT/HCPCS: 36415; 80053; 81001; 82272; 85025; 85610; 85730; 87077; 87086; 87088; 87186; 96360; 96361; 99282; 99283; A9270; J7120

== ENCOUNTER 2021-01-28 10:44 | Emergency (ER) | payer MEDICARE, SELFPAY ==
[2021-01-28 11:10] VITALS: BP 118/71; PULSE 100; RESP 14; TEMP 36.6; O2SAT 90
--- NOTE | 2021-01-28 11:42 | ED.SOB ---
HPI - SOB/Dyspnea General Chief Complaint: Shortness of Breath/Dyspnea Stated Complaint: COVID exposure Source: patient and family Mode of arrival: ambulatory Limitations: no limitations History of Present Illness HPI Narrative: patient presents with her after her primary care physician advised them that come to the emergency department to for COVID, her that she has with currently has been diagnosed with COVID and they she has had her 1st dose of her vaccination currently she is stable with no shortness of breath no cough no fever chills no chest pain no abdominal pain no headaches no nausea vomiting. Related Data Home Medications Medication Instructions Recorded Confirmed Ozempic 0.5 mg SUBCUT WEEKLY 10/21/20 01/24/21 Xarelto 15 mg PO DAILY 10/21/20 01/24/21 levothyroxine 112 mcg PO DAILY 10/21/20 01/24/21 potassium chloride 10 meq PO DAILY 10/21/20 01/24/21 pravastatin 20 mg PO DAILY 10/21/20 01/24/21 cephalexin 500 mg PO DAILY 01/28/21 01/28/21 Allergies Allergy/AdvReac Type Severity Reaction Status Date / Time adhesive tape Allergy Severe BLISTERS Verified 12/12/20 15:16 amiodarone Allergy Severe N/V, Verified 12/12/20 15:16 HEADACHE, HOSPITALIZED atorvastatin Allergy Severe SWELLING Verified 12/12/20 15:16 butorphanol Allergy Severe RESTLESSNES Verified 12/12/20 15:16 S cerivastatin Allergy Severe ABDOMINAL Verified 12/12/20 15:16 PAIN, H/A clindamycin Allergy Severe TACHYCARDIA Verified 12/12/20 15:16 dexamethasone Allergy Severe IRRITATED Verified 12/12/20 15:16 EYES duloxetine Allergy Severe H/A Verified 12/12/20 15:16 gabapentin Allergy Severe CHF Verified 12/12/20 15:16 gemfibrozil Allergy Severe ELEVATED Verified 12/12/20 15:16 CHOLESTEROL guaifenesin Allergy Severe NERVOUSNESS Verified 12/12/20 15:16 hydrocodone Allergy Severe N/V Verified 12/12/20 15:16 isosorbide Allergy Severe H/A Verified 12/12/20 15:16 levofloxacin Allergy Severe VOMITING Verified 12/12/20 15:16 nifedipine Allergy Severe SWELLING Verified 12/12/20 15:16 nitroglycerin Allergy Severe VOMITING Verified 12/12/20 15:16 norfloxacin Allergy Severe SWELLING Verified 12/12/20 15:16 oxycodone Allergy Severe VOMITING Verified 12/12/20 15:16 phenylephrine Allergy Severe NERVOUSNESS Verified 12/12/20 15:16 phenylpropanolamine Allergy Severe NERVOUSNESS Verified 12/12/20 15:16 prednisone Allergy Severe H/A Verified 12/12/20 15:16 rofecoxib Allergy Severe UPSET Verified 12/12/20 15:16 STOMACH, CAN TAKE WITH MEALS tobramycin Allergy Severe IRRITATED Verified 12/12/20 15:16 EYES adhesive Allergy Intermediate Unknown Verified 12/12/20 15:16 chlorpheniramine [Ornade] Allergy Intermediate Unknown Verified 12/12/20 15:16 codeine Allergy Intermediate Unknown Verified 12/12/20 15:16 doxycycline Allergy Intermediate Unknown Verified 12/12/20 15:16 erythromycin base Allergy Intermediate Unknown Verified 12/12/20 15:16 flurbiprofen [Ansaid] Allergy Intermediate Unknown Verified 12/12/20 15:16 tetracycline Allergy Intermediate Unconscious Verified 12/12/20 15:16 tramadol [Ultram] Allergy Intermediate Unknown Verified 12/12/20 15:16 cephalexin Allergy Mild Rash Verified 12/12/20 15:16 ciprofloxacin Allergy Unknown Unknown Verified 12/12/20 15:16 diclofenac Allergy Unknown Unknown Verified 12/12/20 15:16 hydroxyzine Allergy Unknown Unknown Verified 12/12/20 15:16 Penicillins Allergy Unknown Unknown Verified 12/12/20 15:16 propoxyphene Allergy Unknown Unknown Verified 12/12/20 15:16 terfenadine Allergy Unknown Unknown Verified 12/12/20 15:16 enalaprilat AdvReac Severe COUGH Verified 12/12/20 15:16 meperidine AdvReac Severe H/A Verified 12/12/20 15:16 Review of Systems Review of Systems: All systems reviewed & are unremarkable except as noted in HPI and below PMFSH Past Medical History Medical History Cardiomegaly Chronic anemia Chronic anticoagulation
[2021-01-28 12:00] VITALS: RESP 14; O2SAT 90
== END 2021-01-28 12:03 | disposition home or self-care (01) ==
PROVIDERS: Emergency Provider Emergency Medicine; PCP Internal Medicine
DX: R53.1 Weakness (principal)
CPT/HCPCS: 99281; 99282

== ENCOUNTER 2021-02-17 16:18 | Emergency (ER) | payer MEDICARE, SELFPAY ==
[2021-02-17 16:39] VITALS: BP 150/109; PULSE 86; RESP 20; TEMP 36.8; O2SAT 100
[2021-02-17 17:14] LABS: Add Urine Microscopic? YES; Appearance Urine Cloudy (Clear); Bilirubin Urine Negative (Negative); Blood Urine 3+ (Negative); Color Urine Orange (Yellow); Glucose Urine UA Negative (Negative); Ketones Urine Negative (Negative); Leukocyte Esterase Ur 2+ (Negative); Nitrate Urine Negative (Negative); Protein Urine 2+ (Negative); Urobilinogen Urine 0.2 mg/dL (0.2-1.0)
[2021-02-17 17:20] LABS: Bacteria Urine 3+ /hpf; RBC Urine 51-75 /hpf (0-2); Squamous Epithelial Cell Urine Rare /hpf (Few); WBC Urine 51-75 /hpf (0-3)
[2021-02-17 17:30] VITALS: BP 150/99; PULSE 83; RESP 20; O2SAT 92
[2021-02-17] MEDS: KETOROLAC 30 MG/ML VIAL (*BKC) IM (17:33)
[2021-02-17] MEDS: LIDOCAINE, EPINEPHRINE, TETRACAINE VISCOUS SOLN 3 ML TOPICAL (17:34)
[2021-02-17] MEDS: LORazepam INJ (*CRX) 2 MG/ML VIAL 0.5 MG IM (18:28)
--- NOTE | 2021-02-17 18:30 | ED.GENADULT ---
HPI - General Adult General Chief complaint: Urogenital-Female Stated complaint: UTI Source: patient and family Mode of arrival: ambulatory Limitations: no limitations History of Present Illness HPI narrative: Dinorah is an 85F with a complex PMH including UTI that presented to the ED with dysuria. It started yesterday after her second COVID vaccine. It has continually become worse until how and it is the worst it has ever been. She has constant pain that is worse while urinating. No back pain, fevers, chills, N/V or abdominal pain. Related Data Home Medications Medication Instructions Recorded Confirmed Ozempic 0.5 mg SUBCUT WEEKLY 10/21/20 02/17/21 levothyroxine 112 mcg PO DAILY 10/21/20 02/17/21 potassium chloride 10 meq PO DAILY 10/21/20 02/17/21 pravastatin 20 mg PO DAILY 10/21/20 02/17/21 aspirin 81 mg chewable tablet 81 mg PO DAILY 02/01/21 02/17/21 Allergies Allergy/AdvReac Type Severity Reaction Status Date / Time adhesive tape Allergy Severe BLISTERS Verified 02/01/21 08:59 amiodarone Allergy Severe N/V, Verified 02/01/21 08:59 HEADACHE, HOSPITALIZED atorvastatin Allergy Severe SWELLING Verified 02/01/21 08:59 clindamycin Allergy Severe TACHYCARDIA Verified 02/01/21 08:59 gabapentin Allergy Severe CHF Verified 02/01/21 08:59 gemfibrozil Allergy Severe ELEVATED Verified 02/01/21 08:59 CHOLESTEROL nifedipine Allergy Severe SWELLING Verified 02/01/21 08:59 norfloxacin Allergy Severe SWELLING Verified 02/01/21 08:59 rofecoxib Allergy Severe UPSET Verified 02/01/21 08:59 STOMACH, CAN TAKE WITH MEALS adhesive Allergy Intermediate Unknown Verified 02/01/21 08:59 chlorpheniramine [Ornade] Allergy Intermediate Unknown Verified 02/01/21 08:59 codeine Allergy Intermediate Unknown Verified 02/01/21 08:59 doxycycline Allergy Intermediate Unknown Verified 02/01/21 08:59 erythromycin base Allergy Intermediate Unknown Verified 02/01/21 08:59 flurbiprofen [Ansaid] Allergy Intermediate Unknown Verified 02/01/21 08:59 tetracycline Allergy Intermediate Unconscious Verified 02/01/21 08:59 tramadol [Ultram] Allergy Intermediate Unknown Verified 02/01/21 08:59 cephalexin Allergy Mild Rash Verified 02/01/21 08:59 ciprofloxacin Allergy Unknown Unknown Verified 02/01/21 08:59 diclofenac Allergy Unknown Unknown Verified 02/01/21 08:59 hydroxyzine Allergy Unknown Unknown Verified 02/01/21 08:59 Penicillins Allergy Unknown Unknown Verified 02/01/21 08:59 propoxyphene Allergy Unknown Unknown Verified 02/01/21 08:59 terfenadine Allergy Unknown Unknown Verified 02/01/21 08:59 butorphanol AdvReac Severe RESTLESSNES Verified 02/17/21 17:11 S cerivastatin AdvReac Severe ABDOMINAL Verified 02/17/21 17:11 PAIN, H/A dexamethasone AdvReac Severe IRRITATED Verified 02/17/21 17:11 EYES duloxetine AdvReac Severe H/A Verified 02/17/21 17:11 enalaprilat AdvReac Severe COUGH Verified 02/01/21 08:59 guaifenesin AdvReac Severe NERVOUSNESS Verified 02/17/21 17:11 hydrocodone AdvReac Severe N/V Verified 02/17/21 17:11 isosorbide AdvReac Severe H/A Verified 02/17/21 17:11 levofloxacin AdvReac Severe VOMITING Verified 02/17/21 17:11 meperidine AdvReac Severe H/A Verified 02/01/21 08:59 nitroglycerin AdvReac Severe VOMITING Verified 02/17/21 17:11 oxycodone AdvReac Severe VOMITING Verified 02/17/21 17:11 phenylephrine AdvReac Severe NERVOUSNESS Verified 02/17/21 17:11 phenylpropanolamine AdvReac Severe NERVOUSNESS Verified 02/17/21 17:11 prednisone AdvReac Severe H/A Verified 02/17/21 17:11 tobramycin AdvReac Severe IRRITATED Verified 02/17/21 17:11 EYES Review of Systems Constitutional: Constitutional: Reports no additional constitutional complaints Eyes: Eyes: Reports no additional eye complaints ENT: Reports system reviewed and no additional complaints, except as documented Cardiovascular: Cardiovascular: Reports no additional cardiovascular complaints Respiratory: Respiratory: Reports no additional respiratory co
[2021-02-17 19:10] VITALS: BP 169/69; PULSE 65; RESP 20; TEMP 36.6; O2SAT 97
== END 2021-02-17 19:15 | disposition home or self-care (01) ==
PROVIDERS: Emergency Provider Family Medicine; PCP Internal Medicine
DX: N39.0 Urinary tract infection, site not specified (principal); E11.9 Type 2 diabetes mellitus without complications; E03.9 Hypothyroidism, unspecified; I12.9 Hypertensive chronic kidney disease with stage 1 through stage 4 chronic kidney disease, or unspecified chronic kidney disease; N18.30 Chronic kidney disease, stage 3 unspecified
CPT/HCPCS: 81001; 87077; 87086; 87088; 87186; 96372; 99283; 99284; J1885; J2060

== ENCOUNTER 2021-02-25 15:13 | Outpatient (CLI) | payer MEDICARE, SELFPAY ==
[2021-02-25 15:28] LABS: Basophils Absolute Auto 0.04 K/mm3 (0.00-0.10); Basophils Percent Auto 0.5 % (0.0-1.0); Eosinophils Absolute Auto 0.15 K/mm3 (0.02-0.50); Hematocrit 29.3 % (35.0-42.0); Hemoglobin 9.2 g/dL (11.7-13.8); Immature Granulocyte Absolute 0.03 K/mm3 (0.00-0.00); Immature Granulocyte Percent A 0.4 % (0.0-0.0); Lymphocytes Absolute Auto 1.98 K/mm3 (1.10-4.50); Lymphocytes Percent Auto 25.9 % (18.0-42.0); Mean Corpuscular HGB Conc 31.4 g/dL (32.0-36.0); Mean Corpuscular Hemoglobin 29.7 pg (27.0-31.0); Mean Corpuscular Volume 94.5 fL (78.0-102.0); Mean Platelet Volume 9.3 fl (9.2-11.8); Monocytes Absolute Auto 0.55 K/mm3 (0.10-0.90); Monocytes Percent Auto 7.2 % (2.0-11.0); Neutrophils Absolute Auto 4.9 K/mm3 (1.7-7.2); Platelet Count Result 307 K/mm3 (150-420); Red Cell Distribution Width 14.6 % (11.6-14.4); White Blood Count 7.7 K/mm3 (4.8-10.8)
[2021-02-25 15:42] LABS: Hemoglobin A1C 6.2 % (<5.7)
[2021-02-25 15:46] LABS: Alanine Aminotransferase 33 U/L (14-59); Albumin Level 3.6 g/dL (3.4-5.0); Alkaline Phosphatase 78 U/L (46-116); Anion Gap 10 mmol/L (8-16); Aspartate Amino Transferase 18 U/L (15-37); Bilirubin,Total 0.2 mg/dL (0.00-1.00); Blood Urea Nitrogen 25 mg/dL (7-18); Calcium 8.9 mg/dL (8.5-10.1); Carbon Dioxide 29 mmol/L (21-32); Chloride 95 mmol/L (98-108); Estimated Glomerular Filt Rate 47; Glucose 188 mg/dL (70-99); Osmolality Calculated 287 mOsm/kg (285-295); Potassium 4.3 mmol/L (3.5-5.1); Sodium 134 mmol/L (136-145); Total Protein 6.8 g/dL (6.4-8.2)
[2021-02-26 16:13] LABS: Thyroid Stimulating Hormone 2.09 uIU/mL (0.36-3.74)
[2021-03-01 05:27] LABS: Thyroid Peroxidase Antibodies <1 IU/mL (<9)
== END 2021-02-25 15:14 | disposition home or self-care (01) ==
LOC: CHSLAB 15:15
PROVIDERS: PCP Internal Medicine; Visit Provider Internal Medicine
DX: E11.9 Type 2 diabetes mellitus without complications (principal); R53.81 Other malaise
CPT/HCPCS: 36415; 80053; 83036; 84443; 85025; 86376

== ENCOUNTER 2021-02-26 15:12 | Outpatient (CLI) | payer MEDICARE, SELFPAY ==
--- NOTE | ~2021-02-26 | XR_ITS ---
XR chest 2V DATE: 02/26/2021 15:30 INDICATION: Dyspnea on exertion for one year. TECHNIQUE: PA and lateral views COMPARISON: October 28, 2020 AP chest FINDINGS: Left-sided dual-lead pacemaker device with leads overlying right atrium and right ventricle . Status post sternotomy and probable coronary bypass graft surgery. Mild cardiomegaly. Thoracic and abdominal aortic calcification. No pulmonary infiltrate or consolidation, pleural effusion or pulmonary vascular congestion or pneumo thorax. Status post cholecystectomy. Diffuse osteopenia. IMPRESSION: Status post sternotomy and probable coronary bypass graft surgery Mild cardiomegaly Left dual-lead pacemaker device No active pulmonary disease Status post cholecystectomy Osteopenia Reviewed, dictated and finalized at location A.
== END 2021-02-26 15:13 | disposition home or self-care (01) ==
LOC: CHSIMG 15:14
PROVIDERS: PCP Internal Medicine; Visit Provider Internal Medicine
DX: R06.00 Dyspnea, unspecified (principal)
CPT/HCPCS: 71046

== ENCOUNTER 2021-03-28 06:47 | Emergency (ER) | payer MEDICARE, SELFPAY ==
[2021-03-28 07:05] VITALS: BP 156/120; PULSE 41; RESP 20; TEMP 36.4; O2SAT 99
[2021-03-28 07:34] LABS: Basophils Absolute Auto 0.03 K/mm3 (0.00-0.10); Basophils Percent Auto 0.5 % (0.0-1.0); Eosinophils Absolute Auto 0.14 K/mm3 (0.02-0.50); Eosinophils Percent Auto 2.4 % (1.0-6.0); Hematocrit 33.1 % (35.0-42.0); Hemoglobin 10.5 g/dL (11.7-13.8); Immature Granulocyte Absolute 0.02 K/mm3 (0.00-0.00); Immature Granulocyte Percent A 0.3 % (0.0-0.0); Lymphocytes Percent Auto 20.5 % (18.0-42.0); Mean Corpuscular HGB Conc 31.7 g/dL (32.0-36.0); Mean Corpuscular Hemoglobin 30.2 pg (27.0-31.0); Mean Corpuscular Volume 95.1 fL (78.0-102.0); Monocytes Percent Auto 6.8 % (2.0-11.0); Neutrophils Absolute Auto 4.1 K/mm3 (1.7-7.2); Neutrophils Percent Auto 69.5 % (50.0-70.0); Platelet Count Result 177 K/mm3 (150-420); Red Blood Count 3.48 M/mm3 (4.20-5.40); Red Cell Distribution Width 14.7 % (11.6-14.4); White Blood Count 5.9 K/mm3 (4.8-10.8)
--- NOTE | 2021-03-28 07:46 | ED.DENTAL ---
HPI - Dental/Oral General Chief complaint: Dental/Oral Stated complaint: mouth bleeding Time Seen by Provider: 03/28/21 07:00 Source: patient and family Mode of arrival: ambulatory Limitations: no limitations History of Present Illness HPI Narrative: Patient comes in after having a dental procedure done a few days ago and having bleeding at the gum site, at where tooth #24 was, where the tooth was extracted. She felt bleeding was severe, as it got all over her. It has persisted for the last hour, but is now an oozing at the extraction site. She has been on an anticoagulant for atrial fibrillation. Direct pressure at home with gauze has not seemed to stop the bleeding. Onset (ago): hour(s) Duration: constant Relieving factors: nothing Exacerbating factors: nothing Treatment prior to arrival: other (direct pressure) Related Data Home Medications Medication Instructions Recorded Confirmed Ozempic 0.5 mg SUBCUT WEEKLY 10/21/20 03/28/21 levothyroxine 112 mcg PO DAILY 10/21/20 03/28/21 potassium chloride 10 meq PO DAILY 10/21/20 03/28/21 pravastatin 20 mg PO DAILY 10/21/20 03/28/21 aspirin 81 mg chewable tablet 81 mg PO DAILY 02/01/21 03/28/21 Allergies Allergy/AdvReac Type Severity Reaction Status Date / Time adhesive tape Allergy Severe BLISTERS Verified 02/01/21 08:59 amiodarone Allergy Severe N/V, Verified 02/01/21 08:59 HEADACHE, HOSPITALIZED atorvastatin Allergy Severe SWELLING Verified 02/01/21 08:59 clindamycin Allergy Severe TACHYCARDIA Verified 02/01/21 08:59 gabapentin Allergy Severe CHF Verified 02/01/21 08:59 gemfibrozil Allergy Severe ELEVATED Verified 02/01/21 08:59 CHOLESTEROL nifedipine Allergy Severe SWELLING Verified 02/01/21 08:59 norfloxacin Allergy Severe SWELLING Verified 02/01/21 08:59 rofecoxib Allergy Severe UPSET Verified 02/01/21 08:59 STOMACH, CAN TAKE WITH MEALS adhesive Allergy Intermediate Unknown Verified 02/01/21 08:59 chlorpheniramine [Ornade] Allergy Intermediate Unknown Verified 02/01/21 08:59 codeine Allergy Intermediate Unknown Verified 02/01/21 08:59 doxycycline Allergy Intermediate Unknown Verified 02/01/21 08:59 erythromycin base Allergy Intermediate Unknown Verified 02/01/21 08:59 flurbiprofen [Ansaid] Allergy Intermediate Unknown Verified 02/01/21 08:59 tetracycline Allergy Intermediate Unconscious Verified 02/01/21 08:59 tramadol [Ultram] Allergy Intermediate Unknown Verified 02/01/21 08:59 cephalexin Allergy Mild Rash Verified 02/01/21 08:59 ciprofloxacin Allergy Unknown Unknown Verified 02/01/21 08:59 diclofenac Allergy Unknown Unknown Verified 02/01/21 08:59 hydroxyzine Allergy Unknown Unknown Verified 02/01/21 08:59 Penicillins Allergy Unknown Unknown Verified 02/01/21 08:59 propoxyphene Allergy Unknown Unknown Verified 02/01/21 08:59 terfenadine Allergy Unknown Unknown Verified 02/01/21 08:59 butorphanol AdvReac Severe RESTLESSNES Verified 02/17/21 17:11 S cerivastatin AdvReac Severe ABDOMINAL Verified 02/17/21 17:11 PAIN, H/A dexamethasone AdvReac Severe IRRITATED Verified 02/17/21 17:11 EYES duloxetine AdvReac Severe H/A Verified 02/17/21 17:11 enalaprilat AdvReac Severe COUGH Verified 02/01/21 08:59 guaifenesin AdvReac Severe NERVOUSNESS Verified 02/17/21 17:11 hydrocodone AdvReac Severe N/V Verified 02/17/21 17:11 isosorbide AdvReac Severe H/A Verified 02/17/21 17:11 levofloxacin AdvReac Severe VOMITING Verified 02/17/21 17:11 meperidine AdvReac Severe H/A Verified 02/01/21 08:59 nitroglycerin AdvReac Severe VOMITING Verified 02/17/21 17:11 oxycodone AdvReac Severe VOMITING Verified 02/17/21 17:11 phenylephrine AdvReac Severe NERVOUSNESS Verified 02/17/21 17:11 phenylpropanolamine AdvReac Severe NERVOUSNESS Verified 02/17/21 17:11 prednisone AdvReac Severe H/A Verified 02/17/21 17:11 tobramycin AdvReac Severe IRRITATED Verified 02/17/21 17:11 EYES Review of Systems Constitutional: Constitutional: Reports no additional cons
[2021-03-28 08:00] VITALS: BP 151/64; PULSE 70; RESP 16; O2SAT 98
== END 2021-03-28 08:00 | disposition home or self-care (01) ==
PROVIDERS: Emergency Provider Emergency Medicine; PCP Internal Medicine
DX: D69.8 Other specified hemorrhagic conditions (principal)
CPT/HCPCS: 36415; 85025; 99282; 99283

== ENCOUNTER 2021-04-06 14:28 | Outpatient (CLI) | payer MEDICARE, SELFPAY ==
[2021-04-06 14:42] LABS: Basophils Absolute Auto 0.04 K/mm3 (0.00-0.10); Basophils Percent Auto 0.6 % (0.0-1.0); Eosinophils Percent Auto 1.5 % (1.0-6.0); Hematocrit 36.4 % (35.0-42.0); Hemoglobin 11.5 g/dL (11.7-13.8); Immature Granulocyte Absolute 0.02 K/mm3 (0.00-0.00); Immature Granulocyte Percent A 0.3 % (0.0-0.0); Lymphocytes Absolute Auto 1.49 K/mm3 (1.10-4.50); Lymphocytes Percent Auto 21.9 % (18.0-42.0); Mean Corpuscular HGB Conc 31.6 g/dL (32.0-36.0); Mean Corpuscular Hemoglobin 30.3 pg (27.0-31.0); Mean Corpuscular Volume 95.8 fL (78.0-102.0); Mean Platelet Volume 10.1 fl (9.2-11.8); Monocytes Absolute Auto 0.39 K/mm3 (0.10-0.90); Monocytes Percent Auto 5.7 % (2.0-11.0); Neutrophils Absolute Auto 4.8 K/mm3 (1.7-7.2); Platelet Count Result 234 K/mm3 (150-420); Red Cell Distribution Width 14.9 % (11.6-14.4); White Blood Count 6.8 K/mm3 (4.8-10.8)
[2021-04-06 15:01] LABS: INR 1.2; Partial Thromboplastin Time 27.6 SEC (23.90-30.70); Prothrombin Time 12.2 Seconds (9.50-12.10)
[2021-04-06 15:51] LABS: Alanine Aminotransferase 35 U/L (14-59); Albumin Level 3.9 g/dL (3.4-5.0); Alkaline Phosphatase 80 U/L (46-116); Anion Gap 11 mmol/L (8-16); Aspartate Amino Transferase 21 U/L (15-37); Bilirubin,Total 0.4 mg/dL (0.00-1.00); Blood Urea Nitrogen 18 mg/dL (7-18); Calcium 9.1 mg/dL (8.5-10.1); Carbon Dioxide 28 mmol/L (21-32); Chloride 104 mmol/L (98-108); Estimated Glomerular Filt Rate > 60; Ferritin 46 ng/mL (8-252); Glucose 156 mg/dL (70-99); Iron 201 ug/dL (50-170); Osmolality Calculated 300 mOsm/kg (285-295); Percent Iron Saturation 67 % (12-57); Potassium 4.2 mmol/L (3.5-5.1); Sodium 143 mmol/L (136-145); Total Protein 6.7 g/dL (6.4-8.2)
== END 2021-04-06 14:29 | disposition home or self-care (01) ==
LOC: CHSLAB 14:30
PROVIDERS: PCP Internal Medicine; Visit Provider Internal Medicine
DX: K62.5 Hemorrhage of anus and rectum (principal)
CPT/HCPCS: 36415; 80053; 82728; 83540; 83550; 85025; 85610; 85730

== ENCOUNTER 2021-04-23 02:52 | Day surgery (SDC) | payer MEDICARE, SELFPAY ==
[2021-04-15 14:25] VITALS: BMI 18.1
--- NOTE | 2021-04-23 12:37 | WPDANESEPPF ---
Anes - Initial Pre Proc Eval Procedure: Operation Date: 04/23/21 12:45 Proposed Procedures p Colonoscopy - Nicolas Myers MD Date/Time: 04/23/21 12:37 Surgeon: Nicolas Myers MD Pre Op Diagnosis: Rectal bleeding Patient Data Age: 85 Gender: F Height: 1.63 m Weight: 48 kg Allergies Allergy/AdvReac Type Severity Reaction Status Date / Time adhesive tape Allergy Severe BLISTERS Verified 04/15/21 14:24 amiodarone Allergy Severe N/V, Verified 04/15/21 14:24 HEADACHE, HOSPITALIZED atorvastatin Allergy Severe SWELLING Verified 04/15/21 14:24 clindamycin Allergy Severe TACHYCARDIA Verified 04/15/21 14:24 gabapentin Allergy Severe CHF Verified 04/15/21 14:24 gemfibrozil Allergy Severe ELEVATED Verified 04/15/21 14:24 CHOLESTEROL nifedipine Allergy Severe SWELLING Verified 04/15/21 14:24 norfloxacin Allergy Severe SWELLING Verified 04/15/21 14:24 rofecoxib Allergy Severe UPSET Verified 04/15/21 14:24 STOMACH, CAN TAKE WITH MEALS adhesive Allergy Intermediate Unknown Verified 04/15/21 14:24 chlorpheniramine [Ornade] Allergy Intermediate Unknown Verified 04/15/21 14:24 codeine Allergy Intermediate Unknown Verified 04/15/21 14:24 doxycycline Allergy Intermediate Unknown Verified 04/15/21 14:24 erythromycin base Allergy Intermediate Unknown Verified 04/15/21 14:24 flurbiprofen [Ansaid] Allergy Intermediate Unknown Verified 04/15/21 14:24 tetracycline Allergy Intermediate Unconscious Verified 04/15/21 14:24 tramadol [Ultram] Allergy Intermediate Unknown Verified 04/15/21 14:24 cephalexin Allergy Mild Rash Verified 04/15/21 14:24 ciprofloxacin Allergy Unknown Unknown Verified 04/15/21 14:24 diclofenac Allergy Unknown Unknown Verified 04/15/21 14:24 hydroxyzine Allergy Unknown Unknown Verified 04/15/21 14:24 Penicillins Allergy Unknown Unknown Verified 04/15/21 14:24 propoxyphene Allergy Unknown Unknown Verified 04/15/21 14:24 terfenadine Allergy Unknown Unknown Verified 04/15/21 14:24 butorphanol AdvReac Severe RESTLESSNES Verified 04/15/21 14:24 S cerivastatin AdvReac Severe ABDOMINAL Verified 04/15/21 14:24 PAIN, H/A dexamethasone AdvReac Severe IRRITATED Verified 04/15/21 14:24 EYES duloxetine AdvReac Severe H/A Verified 04/15/21 14:24 enalaprilat AdvReac Severe COUGH Verified 04/15/21 14:24 guaifenesin AdvReac Severe NERVOUSNESS Verified 04/15/21 14:24 hydrocodone AdvReac Severe N/V Verified 04/15/21 14:24 isosorbide AdvReac Severe H/A Verified 04/15/21 14:24 levofloxacin AdvReac Severe VOMITING Verified 04/15/21 14:24 meperidine AdvReac Severe H/A Verified 04/15/21 14:24 nitroglycerin AdvReac Severe VOMITING Verified 04/15/21 14:24 oxycodone AdvReac Severe VOMITING Verified 04/15/21 14:24 phenylephrine AdvReac Severe NERVOUSNESS Verified 04/15/21 14:24 phenylpropanolamine AdvReac Severe NERVOUSNESS Verified 04/15/21 14:24 prednisone AdvReac Severe H/A Verified 04/15/21 14:24 tobramycin AdvReac Severe IRRITATED Verified 04/15/21 14:24 EYES Home Medications Medication Instructions Recorded Confirmed Type Ozempic 0.5 mg SUBCUT WEEKLY 10/21/20 04/15/21 History levothyroxine 112 mcg PO DAILY 10/21/20 04/15/21 History ferrous sulfate 324 mg PO DAILY #30 tablet 11/13/20 04/15/21 Rx rivaroxaban 15 mg tablet See Rx Instructions .ROUTE 03/17/21 04/15/21 Rx .COMPLEX #30 tablet pravastatin 20 mg tablet 10 mg PO DAILY 04/12/21 04/15/21 History aspirin [Adult Low Dose Aspirin] 81 mg PO DAILY 04/15/21 04/15/21 History carvedilol [Coreg] 6.25 mg PO Q12H 04/15/21 04/15/21 History furosemide 40 mg PO DAILY 04/15/21 04/15/21 History potassium chloride 10 meq PO DAILY 04/15/21 04/15/21 History Patient hx anesthesia problems: none Family hx anesthesia problems: none PMFSH Past Medical History Medical History Cardiomegaly Chronic anemia Chronic anticoagulation 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
[2021-04-23 12:41] LABS: Glucose Point of Care 114 mg/dl (65-105)
--- NOTE | 2021-04-23 12:58 | WPDGICN ---
Assessment and Plan Assessment and plan (1) Blood in stool: Code(s): K92.1 - Melena Status: Acute Assessment and Plan: Patient with blood in stools a associated with loose stools and anticoagulation. Plan is for colonoscopy to assess more thoroughly. Further recommendations will be given after endoscopy. She may benefit from some stool studies if diarrhea persists. (2) Chronic anticoagulation: Code(s): Z79.01 - nursing home (current) use of anticoagulants Status: Acute Assessment and Plan: Anticoagulation undoubtedly contributes to patient's blood. We may need to be cautious with future anticoagulation (3) Pacemaker: Code(s): Z95.0 - Presence of cardiac pacemaker Status: Acute (4) Paroxysmal atrial flutter: Code(s): I48.92 - Unspecified atrial flutter Status: Chronic GI Consult Note Consult date/time: 04/23/21 12:59 HPI: Dinorah Thorpe is a 85 year old female Complains of blood in stools. Patient reports that she has had diarrhea with blood in her stools noted over the last several months. She denies abdominal pain. She does take Imodium up to 4 a day did stop her diarrhea. She denies any pain or bleeding as stated. Past medical history is significant for atrial fibrillation for which she is on anticoagulation. Family history is significant that her mother had colon cancer. Patient states she has not had any stool studies done prior to this. She is reported to have had prior history of colon polyps. 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 CKD (chronic kidney disease) stage 3, GFR 30-59 ml/min Closed head injury Congestive heart failure Contusion of right shoulder Coronary artery disease Diabetes type 2, controlled Diarrhea Dysphagia Fall (~07/22/19) History of esophageal dilatation History of pacemaker History of TIA (transient ischemic attack) and stroke Hyperlipidemia associated with type 2 diabetes mellitus Hypertension Hypertension associated with stage 3 chronic kidney disease due to type 2 diabetes mellitus Hyponatremia Hypothyroidism Paroxysmal atrial flutter Peripheral sensory neuropathy due to type 2 diabetes mellitus Rectal bleeding Schatzki's ring of distal esophagus Trigger finger, right middle finger Surgical History Surgical History History of appendectomy History of arthroplasty of right knee History of cholecystectomy History of colonoscopy with polypectomy Last colonoscopy in 01/2020 with descending colon polyp biopsied and showing ulcerated tubulovillous adenoma with high-grade dysplasia. History of mitral valve repair 4 vessel CABG and Mitral Valve Repair at [facility] in 1995. History of phacoemulsification of cataract of both eyes with intraocular lens implantation History of total abdominal hysterectomy and bilateral salpingo-oophorectomy S/P CABG (coronary artery bypass graft) 4 vessel CABG and Mitral Valve Repair at [facility] in 1995. Family History Family History Mother Carcinoma of colon Father Family history of coronary artery disease Father Family history of coronary artery disease Other Heart disease Hypertension Social History Social History Smoking status: Never smoker Second hand tobacco smoke exposure: No Alcohol intake: never Substance use: never Substance use type: does not use Last use: years ago; Living arrangements: with family Additional living arrangements comments: Lives with h
[2021-04-23] MEDS: LACTATED RINGERS 1,000 ML 150 ML IV CONT (13:01)
[2021-04-23 13:07] VITALS: BP 177/86; PULSE 78; RESP 18; TEMP 35.9; O2SAT 100
[2021-04-23 13:40] VITALS: BP 123/50; PULSE 60; RESP 15; O2SAT 100
[2021-04-23 13:50] VITALS: BP 165/76; PULSE 66; RESP 21; O2SAT 100
[2021-04-23 14:00] VITALS: BP 168/79; PULSE 68; RESP 20; O2SAT 100
--- NOTE | 2021-04-23 14:09 | SUR.PHASEII ---
Dr. Myers states that patient can start back on xarelto today.
== END 2021-04-23 14:32 | disposition home or self-care (01) ==
PROVIDERS: PCP Internal Medicine; Visit Provider Internal Medicine Gastroenterology
PROC: 0DJD8ZZ Inspection of Lower Intestinal Tract, Via Natural or Artificial Opening Endoscopic (ICD-10-PCS; CPT 45378; principal; 2021-04-23 12:45)
DX: K92.1 Melena (principal); K52.9 Noninfective gastroenteritis and colitis, unspecified; K64.8 Other hemorrhoids; I48.92 Unspecified atrial flutter; N18.30 Chronic kidney disease, stage 3 unspecified; I50.9 Heart failure, unspecified; I13.0 Hypertensive heart and chronic kidney disease with heart failure and stage 1 through stage 4 chronic kidney disease, or unspecified chronic kidney disease; E11.22 Type 2 diabetes mellitus with diabetic chronic kidney disease; E11.40 Type 2 diabetes mellitus with diabetic neuropathy, unspecified; I25.10 Atherosclerotic heart disease of native coronary artery without angina pectoris; E03.9 Hypothyroidism, unspecified; K22.2 Esophageal obstruction; R13.10 Dysphagia, unspecified; D64.9 Anemia, unspecified; Z80.0 Family history of malignant neoplasm of digestive organs; Z86.73 Personal history of transient ischemic attack (TIA), and cerebral infarction without residual deficits; Z86.010 Personal history of colon polyps; Z95.1 Presence of aortocoronary bypass graft; Z98.42 Cataract extraction status, left eye; Z98.41 Cataract extraction status, right eye; Z96.1 Presence of intraocular lens; Z95.0 Presence of cardiac pacemaker; Z79.01 Long term (current) use of anticoagulants; Z90.710 Acquired absence of both cervix and uterus; Z90.722 Acquired absence of ovaries, bilateral; Z90.49 Acquired absence of other specified parts of digestive tract
CPT/HCPCS: 45380; 82948; 88305; J2704; J7120

== ENCOUNTER 2021-04-25 18:42 | Emergency (ER) | payer MEDICARE, SELFPAY ==
--- NOTE | ~2021-04-25 | CT_ITS ---
EXAMINATION: CT brain wo con DATE: 04/25/2021 19:35 INDICATION: Slurred speech TECHNIQUE: Computed tomography (CT) of the head was performed without intravenous contrast. Sagittal and coronal reconstructions were performed. The mA was adjusted according to patient size. Iterative reconstruction technique was employed. The dose-length product was 605.33 mGy-cm. COMPARISON: head CT dated 10/21/2020 FINDINGS: No acute intracranial hemorrhage, acute infarction or abnormal extra axial fluid collection. Symmetri c prominence of the sulci consistent with mild age-appropriate diffuse cerebral volume loss. Ventricl es are normal and symmetric. No mass/mass effect. Changes of bilateral intraocular lens replacement. The orbits, paranasal sinuses and mastoid air cells are normal. Intracranial calcified cerebral ather osclerosis is noted. IMPRESSION: 1. Normal aging brain. Reviewed, dictated and finalized at location A. IMPRESSION: 1. Normal aging brain.
--- NOTE | ~2021-04-25 | CT_ITS ---
. EXAMINATION: CT pelvis wo con DATE: 04/25/2021 19:36 INDICATION: Right hip pain post fall TECHNIQUE: High resolution computed tomography (CT) of the pelvis was performed without intravenous c ontrast. Additional sagittal and coronal reconstructions were performed. Automated exposure control a nd iterative reconstruction technique were employed. The dose-length product was 176.98 mGy-cm. COMPARISON: Right hip radiographs dated 12/12/[address] dated 10/28/2020 FINDINGS: Old healed fracture deformities at the bilateral superior and inferior pubic rami. Linear sclerosis a t the lateral left sacral which is new since prior CT consistent with likely acute fracture. No other fractures identified. Moderate bilateral hip osteoarthritis. No hip joint effusions. Enthesopathic o ssification about the bilateral greater trochanters and ischial tuberosities. Severe lower lumbar spo ndylosis. Small amount of gas and a Shore catheter within the bladder. Small amount of ascites in the deep pelvis. Visualized portion of the bowels are unremarkable. No pathologically enlarged pelvic or inguinal lymphadenopathy. IMPRESSION: 1. Acute appearing nondisplaced sagittally oriented fracture at the left sacral ala. No other acute o sseous abnormality. 2. Moderate bilateral hip osteoarthritis. Reviewed, dictated and finalized at location A. IMPRESSION: 1. Acute appearing nondisplaced sagittally oriented fracture at the left sacral ala. No other acute osseous abnormality. 2. Moderate bilateral hip osteoarthritis.
--- NOTE | ~2021-04-25 | XR_ITS ---
EXAMINATION: XR chest 1V portable DATE: 04/25/2021 19:36 INDICATION: Altered mental status TECHNIQUE: frontal view of the chest was obtained. COMPARISON: Chest radiograph dated 02/26/2021 FINDINGS: The lungs remain clear with no focal airspace opacities, pulmonary edema, pleural effusion or pneumot horax. Mild cardiomegaly. Median sternotomy wires and mediastinal surgical clips are seen, likely fro m prior coronary artery bypass grafting. Dual lead pacemaker seen with leads projecting over the expe cted locations of the right atrium and right ventricle. Cholecystectomy clips in the right upper quad rant. IMPRESSION: 1. Cardiomegaly. No acute cardiopulmonary disease. Reviewed, dictated and finalized at location A.
[2021-04-25 18:42] VITALS: BP 122/98; PULSE 67; RESP 18; TEMP 36.8; O2SAT 98
--- NOTE | 2021-04-25 19:05 | ECG_ITS ---
Measurements Intervals [place] Rate: 76 P: 89 SC: 250 QRS: -79 QRSD: 185 T: 95 QT: 458 QTc: 515 Interpretive Statements ATRIAL SENSE- ELECTRONIC VENTRICULAR PACEMAKER VENTRICULAR PREMATURE COMPLEXES BASELINE WANDER- V2, V4-V6 NO FURTHER INTERPRETATION IS POSSIBLE ATYPICAL ECG Electronically Signed On 04-26-2021 6:26:58 CDT by Jim Herr D.O.
[2021-04-25 19:56] LABS: Basophils Absolute Auto 0.03 K/mm3 (0.00-0.10); Basophils Percent Auto 0.3 % (0.0-1.0); Eosinophils Absolute Auto 0.04 K/mm3 (0.02-0.50); Eosinophils Percent Auto 0.4 % (1.0-6.0); Hematocrit 42.1 % (35.0-42.0); Hemoglobin 13.1 g/dL (11.7-13.8); Immature Granulocyte Absolute 0.04 K/mm3 (0.00-0.00); Immature Granulocyte Percent A 0.4 % (0.0-0.0); Lymphocytes Absolute Auto 1.13 K/mm3 (1.10-4.50); Mean Corpuscular HGB Conc 31.1 g/dL (32.0-36.0); Mean Corpuscular Hemoglobin 30.3 pg (27.0-31.0); Mean Corpuscular Volume 97.5 fL (78.0-102.0); Mean Platelet Volume 10.5 fl (9.2-11.8); Monocytes Absolute Auto 0.65 K/mm3 (0.10-0.90); Monocytes Percent Auto 6.3 % (2.0-11.0); Neutrophils Absolute Auto 8.4 K/mm3 (1.7-7.2); Neutrophils Percent Auto 81.6 % (50.0-70.0); Platelet Count Result 198 K/mm3 (150-420); Red Blood Count 4.32 M/mm3 (4.20-5.40); Red Cell Distribution Width 14.1 % (11.6-14.4); White Blood Count 10.2 K/mm3 (4.8-10.8)
[2021-04-25] MEDS: SODIUM CHLORIDE 0.9% IV 500 ML 999 ML IV CONT (19:57)
[2021-04-25 19:58] LABS: Add Urine Microscopic? NO; Appearance Urine Clear (Clear); Bilirubin Urine Negative (Negative); Blood Urine Negative (Negative); Color Urine Light Yellow (Yellow); Glucose Urine UA Negative (Negative); Ketones Urine Negative (Negative); Leukocyte Esterase Ur Negative (Negative); Nitrate Urine Negative (Negative); Protein Urine Negative (Negative); Specific Grav Ur <= 1.005 (1.010-1.020); Urobilinogen Urine 0.2 mg/dL (0.2-1.0); pH Urine 6.5 (5.0-8.0)
[2021-04-25 20:16] LABS: Alanine Aminotransferase 36 U/L (14-59); Albumin Level 3.8 g/dL (3.4-5.0); Alkaline Phosphatase 69 U/L (46-116); Anion Gap 10 mmol/L (8-16); Aspartate Amino Transferase 27 U/L (15-37); Bilirubin,Total 0.7 mg/dL (0.00-1.00); Blood Urea Nitrogen 23 mg/dL (7-18); Calcium 9.1 mg/dL (8.5-10.1); Carbon Dioxide 31 mmol/L (21-32); Chloride 102 mmol/L (98-108); Estimated CRCL calculation 29 ml/min; Estimated Glomerular Filt Rate 52; Glucose 152 mg/dL (70-99); Osmolality Calculated 302 mOsm/kg (285-295); Sodium 143 mmol/L (136-145); Total Protein 7.2 g/dL (6.4-8.2)
[2021-04-25 20:19] LABS: Lactic Acid Reflex 0.9 mmol/L (0.4-2.0)
[2021-04-25 20:21] LABS: Potassium 2.4 mmol/L (3.5-5.1); Troponin I 1236.1 ng/L (0.00-60.4)
--- NOTE | 2021-04-25 20:31 | ECG_ITS ---
Measurements Intervals [place] Rate: 73 P: GA: 0 QRS: -75 QRSD: 198 T: 0 QT: 466 QTc: 516 Interpretive Statements ATRIAL SENSE- ELECTRONIC VENTRICULAR PACEMAKER VENTRICULAR BIGEMINY BASELINE WANDER- I, AVL, AVF NO FURTHER INTERPRETATION IS POSSIBLE ABNORMAL ECG Electronically Signed On 04-26-2021 6:25:35 CDT by Jim Herr D.O.
[2021-04-25] MEDS: ASPIRIN 325 MG ENTERIC TABLET PO (21:10)
[2021-04-25] MEDS: POTASSIUM CHLORIDE 20 MEQ TABLET 40 MEQ PO (21:10)
[2021-04-25] MEDS: MORPHINE SULFATE (*CRX) 2 MG/ML INJ IV PUSH (21:17)
[2021-04-25] MEDS: KCL 20 MEQ/SW 100 ML 100 ML 50 MEQ IVPB (21:19)
[2021-04-25] MEDS: SODIUM CHLORIDE 0.9% IV 500 ML 30 ML (21:35)
[2021-04-25 22:22] LABS: NT Pro B Type Natriuretic Pept 11960 pg/mL (0-450); Troponin I 1134.8 ng/L (0.00-60.4)
[2021-04-25 22:23] LABS: Creatine Kinase 148 U/L (26-192)
[2021-04-26] VITALS (10 sets, daily range): BP systolic 158–172; BP diastolic 62–73; PULSE 63–75; RESP 13–20; TEMP 36.7; O2SAT 92–98
--- NOTE | 2021-04-26 00:14 | PC.NURSE ---
pt resting comfortably per cot with eyes closed, report to [facility]
--- NOTE | 2021-04-26 00:47 | PC.NURSE ---
pt request to contact [facility] for transfer. dr kaufman notified.
[2021-04-26 01:33] LABS: SARS-CoV-2 Ag Negative (Negative)
--- NOTE | 2021-04-26 02:30 | PC.NURSE ---
Call back from [facility] transfer center, updates and info given to Wil. Will await call back for bed placement. Pt sleeping, VSS.
--- NOTE | 2021-04-26 03:02 | PC.NURSE ---
Pt sleeping, VSS, monitor shows paced rhythm.
--- NOTE | 2021-04-26 03:30 | ED.FALL ---
HPI - Fall General Chief Complaint: Fall Stated Complaint: ambulance Time Seen by Provider: 04/25/21 18:44 Source: patient, family and EMS Mode of arrival: EMS Limitations: no limitations History of Present Illness MD complaint: fall Onset (ago): hour(s) (6) Fall from: standing Fall witnessed: no Place fall occurred: home Loss of consciousness: none Prolonged down time: yes Symptoms prior to fall: chest pain Location of injury: pelvis Severity: mild Severity scale (1-10): 5 (4) Quality: burning Associated symptoms (after fall): chest pain and lightheaded Related Data Home Medications Medication Instructions Recorded Confirmed Ozempic 0.5 mg SUBCUT WEEKLY 10/21/20 04/25/21 levothyroxine 112 mcg PO DAILY 10/21/20 04/25/21 pravastatin 20 mg tablet 10 mg PO DAILY 04/12/21 04/25/21 aspirin [Adult Low Dose Aspirin] 81 mg PO DAILY 04/15/21 04/25/21 carvedilol [Coreg] 6.25 mg PO Q12H 04/15/21 04/25/21 furosemide 40 mg PO DAILY 04/15/21 04/25/21 potassium chloride 10 meq PO DAILY 04/15/21 04/25/21 Allergies Allergy/AdvReac Type Severity Reaction Status Date / Time adhesive tape Allergy Severe BLISTERS Verified 04/15/21 14:24 amiodarone Allergy Severe N/V, Verified 04/15/21 14:24 HEADACHE, HOSPITALIZED atorvastatin Allergy Severe SWELLING Verified 04/15/21 14:24 clindamycin Allergy Severe TACHYCARDIA Verified 04/15/21 14:24 gabapentin Allergy Severe CHF Verified 04/15/21 14:24 gemfibrozil Allergy Severe ELEVATED Verified 04/15/21 14:24 CHOLESTEROL nifedipine Allergy Severe SWELLING Verified 04/15/21 14:24 norfloxacin Allergy Severe SWELLING Verified 04/15/21 14:24 rofecoxib Allergy Severe UPSET Verified 04/15/21 14:24 STOMACH, CAN TAKE WITH MEALS adhesive Allergy Intermediate Unknown Verified 04/15/21 14:24 chlorpheniramine [Ornade] Allergy Intermediate Unknown Verified 04/15/21 14:24 codeine Allergy Intermediate Unknown Verified 04/15/21 14:24 doxycycline Allergy Intermediate Unknown Verified 04/15/21 14:24 erythromycin base Allergy Intermediate Unknown Verified 04/15/21 14:24 flurbiprofen [Ansaid] Allergy Intermediate Unknown Verified 04/15/21 14:24 tetracycline Allergy Intermediate Unconscious Verified 04/15/21 14:24 tramadol [Ultram] Allergy Intermediate Unknown Verified 04/15/21 14:24 cephalexin Allergy Mild Rash Verified 04/15/21 14:24 ciprofloxacin Allergy Unknown Unknown Verified 04/15/21 14:24 diclofenac Allergy Unknown Unknown Verified 04/15/21 14:24 hydroxyzine Allergy Unknown Unknown Verified 04/15/21 14:24 Penicillins Allergy Unknown Unknown Verified 04/15/21 14:24 propoxyphene Allergy Unknown Unknown Verified 04/15/21 14:24 terfenadine Allergy Unknown Unknown Verified 04/15/21 14:24 butorphanol AdvReac Severe RESTLESSNES Verified 04/15/21 14:24 S cerivastatin AdvReac Severe ABDOMINAL Verified 04/15/21 14:24 PAIN, H/A dexamethasone AdvReac Severe IRRITATED Verified 04/15/21 14:24 EYES duloxetine AdvReac Severe H/A Verified 04/15/21 14:24 enalaprilat AdvReac Severe COUGH Verified 04/15/21 14:24 guaifenesin AdvReac Severe NERVOUSNESS Verified 04/15/21 14:24 hydrocodone AdvReac Severe N/V Verified 04/15/21 14:24 isosorbide AdvReac Severe H/A Verified 04/15/21 14:24 levofloxacin AdvReac Severe VOMITING Verified 04/15/21 14:24 meperidine AdvReac Severe H/A Verified 04/15/21 14:24 nitroglycerin AdvReac Severe VOMITING Verified 04/15/21 14:24 oxycodone AdvReac Severe VOMITING Verified 04/15/21 14:24 phenylephrine AdvReac Severe NERVOUSNESS Verified 04/15/21 14:24 phenylpropanolamine AdvReac Severe NERVOUSNESS Verified 04/15/21 14:24 prednisone AdvReac Severe H/A Verified 04/15/21 14:24 tobramycin AdvReac Severe IRRITATED Verified 04/15/21 14:24 EYES Review of Systems Review of Systems: All systems reviewed & are unremarkable except as noted in HPI and below Constitutional: Constitutional: Reports as per HPI and Reports no additional constitutional complaints Eyes: Eyes: R
== END 2021-04-26 05:02 | disposition short-term general hospital (02) ==
PROVIDERS: Emergency Provider Emergency Medicine; PCP Internal Medicine
DX: I21.4 Non-ST elevation (NSTEMI) myocardial infarction (principal); S32.89XA Fracture of other parts of pelvis, initial encounter for closed fracture; Z79.01 Long term (current) use of anticoagulants; I12.9 Hypertensive chronic kidney disease with stage 1 through stage 4 chronic kidney disease, or unspecified chronic kidney disease; N18.30 Chronic kidney disease, stage 3 unspecified; E11.9 Type 2 diabetes mellitus without complications; E78.5 Hyperlipidemia, unspecified; E03.9 Hypothyroidism, unspecified; I50.9 Heart failure, unspecified; W19.XXXA Unspecified fall, initial encounter
CPT/HCPCS: 36415; 70450; 71045; 72192; 80053; 81003; 82550; 83605; 83880; 84484; 85025; 87426; 93005; 96365; 96366; 96375; 99285; 99291; A9270; C9803; J2270; J3480; J7040

== ENCOUNTER 2021-04-29 17:11 | Inpatient (IN) | payer MEDICARE, SELFPAY ==
[2021-04-29 17:25] VITALS: BMI 18.6
--- NOTE | 2021-04-29 17:25 | ADMGEN ---
This patient, Dinorah Thorpe, was admitted to 2nd Floor Room 205-2 as a skilled swing bed for physical/occupational therapy related to weakness/fall. Patient/family oriented to hospital policies and general routines including ID bracelet, bed and alarms, visiting hours, pain management, procedures, bathroom and other care routines, personal items, smoking policy, room service/diet, and visiting hours. Information on how to activate the Rapid Response Team has been discussed. Patient/Family are encouraged to report perceived risks to care and to ask questions if they do not understand what they are told or what they should do.
[2021-04-29 18:06] VITALS: BMI 18.6
[2021-04-29] MEDS: ACETAMINOPHEN 325 MG TABLET PO ×3 (19:20→23:23)
[2021-04-29 19:33] VITALS: PULSE 78
[2021-04-29] MEDS: carvediloL 3.125 MG TABLET PO (19:33)
[2021-04-29] MEDS: NITROFURANTOIN MONOHYD MACROCR 100 MG CAP PO (19:34)
[2021-04-29] MEDS: PRAVASTATIN SODIUM 10 MG TABLET PO (20:34)
--- NOTE | 2021-04-29 20:46 | PM.IMHP ---
H&P: HPI History of Present Illness Date/Time: 04/29/21 20:46 Chief Complaint: needs rehab after broken hip. Narrative: Pt was apparently at home while her and son went [facility]. While they were gone, she fell at home multiple times. SHe apparently had a NSTEMI and broke her pelvis. She states that she is having pain, but that she does ok if her gets her tylenol every 4 hours. She is adamant that we even her wake her up to give her the medication. She is communicative and in no distress. She was at [facility] and treated for these conditions. SHe is from home and plans to return there, but will need some therapy before she is able. She has a plethora of health conditions as well which contribute to her deconditioning. Review of Systems Constitutional: Constitutional: Reports difficulty sleeping, Reports fatigue, Reports lethargy and Reports weakness Eyes: Eyes: Reports no additional eye complaints Cardiovascular: Cardiovascular: Reports chest pain (recent NSSTEMI) Respiratory: Respiratory: Reports no additional respiratory complaints Gastrointestinal: Gastrointestinal: Reports no additional gastrointestinal complaints Musculoskeletal: Musculoskeletal: Reports myalgias Integumentary/Breasts: Skin/Breast: Reports system reviewed and no additional complaints, except as docu Neurologic: Reports confusion Psychiatric: Psychiatric: Reports no additional psychiatric complaints [facility] Past Medical History Medical History (Updated 04/29/21 @ 20:58 by Cesilia Sheth MD) Cardiomegaly Chronic anemia Chronic anticoagulation 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trial flutter. CKD (chronic kidney disease) stage 3, GFR 30-59 ml/min Closed head injury Congestive heart failure Contusion of right shoulder Coronary artery disease Diabetes type 2, controlled Diarrhea Dysphagia Fall (~07/22/19) History of esophageal dilatation History of pacemaker History of TIA (transient ischemic attack) and stroke Hyperlipidemia associated with type 2 diabetes mellitus Hypertension Hypertension associated with stage 3 chronic kidney disease due to type 2 diabetes mellitus Hyponatremia Hypothyroidism Paroxysmal atrial flutter Peripheral sensory neuropathy due to type 2 diabetes mellitus Rectal bleeding Schatzki's ring of distal esophagus Trigger finger, right middle finger Surgical History Surgical History History of appendectomy History of arthroplasty of right knee History of cholecystectomy History of colonoscopy with polypectomy Last colonoscopy in 01/2020 with descending colon polyp biopsied and showing ulcerated tubulovillous adenoma with high-grade dysplasia. History of mitral valve repair 4 vessel CABG [facility]. History of phacoemulsification of cataract of both eyes with intraocular lens implantation History of total abdominal hysterectomy and bilateral salpingo-oophorectomy S/P CABG (coronary artery bypass graft) 4 vessel CABG and [facility]. Family History Family History Mother Carcinoma of colon Father Family history of coronary artery disease Father Family history of coronary artery disease Other Heart disease Hypertension Social History Social History Smoking status: Never smoker Second hand tobacco smoke exposure: No Alcohol intake: never Substance use: never Substance use type: does not use Last use: years ago; Additional living arrangements comments: Lives with Gender identity (if verbalized by the patient): Female Sexual Orientation (if Verbalized by the Patient): Straight or Heterosexual Spiritual care concerns: No Meds Home Medications and Allergies Home Medications
[2021-04-29 21:07] LABS: Glucose Point of Care 158 mg/dl (65-105)
[2021-04-29 23:15] VITALS: BP 174/83; PULSE 62; RESP 20; TEMP 36.7; O2SAT 97
--- NOTE | 2021-04-29 23:23 | PC.NURSE ---
Pt resting per bed. Complains of R upper abdomen, side and back pain due to fractured ribs from fall. Rates a 5 on 1-10 scale, describes as stabbing. Tylenol 325mg given PO. Bed rails up x3. Call chan in reach. Reminded to call with needs.
--- NOTE | 2021-04-30 00:30 | PC.NURSE ---
Pt sleeping. Appears comfortable.
--- NOTE | 2021-04-30 01:50 | PC.NURSE ---
Pt sleeping, appears comfortable. Call chan in reach.
--- NOTE | 2021-04-30 02:23 | PC.NURSE ---
Pt sleeping, appears comfortable.
--- NOTE | 2021-04-30 02:50 | PC.NURSE ---
Pt sleeping per ped. No distress noted. Call chan in reach.
--- NOTE | 2021-04-30 04:47 | PC.NURSE ---
Pt sleeping per bed. No distress noted. Bed rails up x3. Call chan in reach.
[2021-04-30] MEDS: LEVOTHYROXINE SODIUM 112 MCG TABLET PO (06:26)
--- NOTE | 2021-04-30 06:32 | PC.NURSE ---
Pt woke up to take morning medication. Has no complaints. Reminded to call with needs. Call chan in reach. Back to sleep.
--- NOTE | 2021-04-30 07:33 | PM.IMPN ---
Progress Note: A&P Assessment and Plan (1) Physical deconditioning: Code(s): R53.81 - Other malaise Status: Acute Assessment and Plan: Pt to work with PT and OT for the following: Relieve pain, Improve movement or ability, Prevent and recover from an injury, Prevent disability or surgery, Rehab after a stroke, injury, Work on balance to prevent a slip or fall, Control your bowels or bladder, Learn to use assistive devices like a walker or cane if needed. (2) Closed pelvic fracture: Qualifiers: Encounter type: initial encounter Laterality: left Pelvic bone location: acetabulum Sublocation of acetabulum: other portion of acetabulum Qualified Code(s): S32.492A - Other specified fracture of left acetabulum, initial encounter for closed fracture Code(s): S32.9XXA - Fracture of unspecified parts of lumbosacral spine and pelvis, initial encounter for closed fracture Status: Acute Assessment and Plan: Pain management with Tylenol, Lidocaine Patch, Tylenol III (Pt does not have a true allergy to this, she states this makes her tired without other SE), work with PT/OT. (3) Ribs, multiple fractures: Code(s): S22.49XA - Multiple fractures of ribs, unspecified side, initial encounter for closed fracture Status: Acute Assessment and Plan: Pain management with Tylenol, Lidocaine Patch, Tylenol III (Pt does not have a true allergy to this, she states this makes her tired without other SE), work with PT/OT. (4) Hypertension: Code(s): I10 - Essential (primary) hypertension Status: Acute Assessment and Plan: BP elevated, increase Coreg to 6.25 mg, monitor VS, make further adjustments to medications or addition of medications as needed with respect to Pt's multiple medication allergies. (5) A-fib: Code(s): I48.91 - Unspecified atrial fibrillation Status: Chronic Assessment and Plan: Continue Xarelto (6) Hypothyroidism: Qualifiers: Hypothyroidism type: unspecified Qualified Code(s): E03.9 - Hypothyroidism, unspecified Code(s): E03.9 - Hypothyroidism, unspecified Status: Acute Assessment and Plan: Continue Levothyroxine 112 mcg (7) Diabetes mellitus: Code(s): E11.9 - Type 2 diabetes mellitus without complications Status: Acute Assessment and Plan: Continue home medications which will be brought in from home, SSI, Accu-checks ACHS, Hypoglycemic protocol in place (8) NSTEMI (non-ST elevated myocardial infarction): Code(s): I21.4 - Non-ST elevation (NSTEMI) myocardial infarction Status: Acute Assessment and Plan: No CP at this time, only right side rib pain from 7th and 9th rib Fx, stable. Subjective Date/time seen: 04/30/21 07:33 Dinorah Thorpe is an 85 year old female who comes to [facility] for rehabilitation after having fallen and chest pain resulting in a NSTEMI vs ACS that was and is being managed medically. Her troponin level was 1236.1 and 1134.8 at [place] [address] [place] well. Her fall resulted in a non-displaced sacral ala fracture and 7th and 9th rib fractures. Her head CT did not show an evolving stroke though at that time it was believed to have been a CVA as she did have some facial droop and dysarthria on admission to [facility]. Due to pacemaker Dinorah was unable to have an MRI. Echo from 2013 indicated LVEF at 45% and EKG at [facility] showed SR with occasional paced rhythm per their documentation. She also had 4XCABG in the past. Carotid Doppler on 04/27/2021 was reported as < 50% Stenosis of Left and Right internal carotid arteries. Dinorah has a PMHx of CAD, DM, HTN, SSS, and Hypothyroidism. She has allergies to 40 medications and adhesive tape. Most appear to be adverse reactions rather than allergic reactions. Pt states Codeine makes her tired. She is ok with taking this for increased right sided rib pain. Case Management in with Pt a
[2021-04-30 07:58] LABS: Glucose Point of Care 139 mg/dl (65-105)
[2021-04-30 08:00] VITALS: BP 171/81; PULSE 73; RESP 16; TEMP 36.6; O2SAT 95
[2021-04-30] MEDS: PRAVASTATIN SODIUM 10 MG TABLET PO (08:50)
[2021-04-30] MEDS: ACETAMINOPHEN 325 MG TABLET PO (09:07)
[2021-04-30] MEDS: LIDOCAINE 5% PATCH 1 PATCH TOPICAL (09:12)
[2021-04-30 09:13] VITALS: PULSE 78
[2021-04-30] MEDS: FUROSEMIDE 20 MG TABLET PO (09:13)
[2021-04-30] MEDS: carvediloL 3.125 MG TABLET PO (09:13)
[2021-04-30] MEDS: SPIRONOLACTONE 25 MG TABLET PO (09:13)
[2021-04-30] MEDS: POTASSIUM CHLORIDE 10 MEQ TABLET PO (09:13)
[2021-04-30] MEDS: NITROFURANTOIN MONOHYD MACROCR 100 MG CAP PO ×2 (09:13→21:15)
[2021-04-30] MEDS: calcium polycarbophiL 625 MG TABLET 1250 MG PO ×2 (09:14→17:24)
[2021-04-30 09:18] LABS: Basophils Absolute Auto 0.07 K/mm3 (0.00-0.10); Eosinophils Absolute Auto 0.16 K/mm3 (0.02-0.50); Eosinophils Percent Auto 2.2 % (1.0-6.0); Hematocrit 43.2 % (35.0-42.0); Hemoglobin 13.9 g/dL (11.7-13.8); Immature Granulocyte Absolute 0.02 K/mm3 (0.00-0.00); Immature Granulocyte Percent A 0.3 % (0.0-0.0); Lymphocytes Absolute Auto 1.08 K/mm3 (1.10-4.50); Lymphocytes Percent Auto 14.7 % (18.0-42.0); Mean Corpuscular HGB Conc 32.2 g/dL (32.0-36.0); Mean Corpuscular Hemoglobin 30.2 pg (27.0-31.0); Mean Corpuscular Volume 93.9 fL (78.0-102.0); Mean Platelet Volume 10.4 fl (9.2-11.8); Monocytes Absolute Auto 0.35 K/mm3 (0.10-0.90); Monocytes Percent Auto 4.8 % (2.0-11.0); Neutrophils Absolute Auto 5.7 K/mm3 (1.7-7.2); Platelet Count Result 226 K/mm3 (150-420); Red Cell Distribution Width 14.3 % (11.6-14.4); White Blood Count 7.4 K/mm3 (4.8-10.8)
[2021-04-30 09:51] LABS: Alanine Aminotransferase 41 U/L (14-59); Albumin Level 3.6 g/dL (3.4-5.0); Alkaline Phosphatase 83 U/L (46-116); Anion Gap 12 mmol/L (8-16); Aspartate Amino Transferase 39 U/L (15-37); Bilirubin,Total 0.6 mg/dL (0.00-1.00); Blood Urea Nitrogen 21 mg/dL (7-18); Calcium 9.2 mg/dL (8.5-10.1); Carbon Dioxide 28 mmol/L (21-32); Chloride 97 mmol/L (98-108); Estimated CRCL calculation 31 ml/min; Estimated Glomerular Filt Rate 56; Glucose 321 mg/dL (70-99); Osmolality Calculated 299 mOsm/kg (285-295); Potassium 3.9 mmol/L (3.5-5.1); Sodium 137 mmol/L (136-145); Total Protein 7.3 g/dL (6.4-8.2)
[2021-04-30 11:55] LABS: Glucose Point of Care 215 mg/dl (65-105)
--- NOTE | 2021-04-30 12:43 | PHAR ---
04/30/21: VERIFIED PT.'S HOME MEDICATIONS OZEMPIC PEN 0.5MG DOSAGE AND MESALAMINE 1.2GM TABS #2 DAILY. TLS
[2021-04-30 15:45] VITALS: BP 139/74; PULSE 72; RESP 18; TEMP 36.6; O2SAT 98
[2021-04-30] MEDS: ACETAMINOPHEN/CODEINE (*CRX) 300/30 MG TABLET 1 TAB PO (17:24)
[2021-04-30] MEDS: RIVAROXABAN 10 MG TABLET 15 MG PO (17:25)
[2021-04-30] MEDS: LACTASE 3,000 UNIT TABLET 6000 UNIT PO (17:29)
[2021-04-30 17:39] LABS: Glucose Point of Care 104 mg/dl (65-105)
[2021-04-30 21:14] VITALS: PULSE 76
[2021-04-30] MEDS: carvediloL 6.25 MG TABLET PO (21:14)
[2021-04-30 21:34] LABS: Glucose Point of Care 194 mg/dl (65-105)
[2021-05-01 00:19] VITALS: BP 174/66; PULSE 75; RESP 20; TEMP 36.2; O2SAT 97
[2021-05-01] MEDS: ACETAMINOPHEN 325 MG TABLET PO (01:43)
[2021-05-01] MEDS: LEVOTHYROXINE SODIUM 112 MCG TABLET PO (06:07)
[2021-05-01 08:00] VITALS: BP 172/76; PULSE 72; RESP 18; TEMP 36.1; O2SAT 96
[2021-05-01 08:16] LABS: Glucose Point of Care 150 mg/dl (65-105)
[2021-05-01] MEDS: PRAVASTATIN SODIUM 10 MG TABLET PO (09:16)
[2021-05-01] MEDS: calcium polycarbophiL 625 MG TABLET 1250 MG PO ×2 (09:16→16:39)
[2021-05-01] MEDS: LACTASE 3,000 UNIT TABLET 6000 UNIT PO (09:16)
[2021-05-01 09:17] VITALS: PULSE 84
[2021-05-01] MEDS: NITROFURANTOIN MONOHYD MACROCR 100 MG CAP PO ×2 (09:17→20:50)
[2021-05-01] MEDS: FUROSEMIDE 20 MG TABLET PO (09:17)
[2021-05-01] MEDS: carvediloL 6.25 MG TABLET PO ×2 (09:17→20:50)
[2021-05-01] MEDS: SPIRONOLACTONE 25 MG TABLET PO (09:17)
[2021-05-01] MEDS: POTASSIUM CHLORIDE 10 MEQ TABLET PO (09:17)
[2021-05-01] MEDS: LIDOCAINE 5% PATCH 1 PATCH TOPICAL (09:17)
[2021-05-01 11:59] LABS: Glucose Point of Care 188 mg/dl (65-105)
[2021-05-01] MEDS: PHARMACIST COMMUNICATION ORDER 1 EACH XX (15:28)
[2021-05-01 16:00] VITALS: BP 146/66; PULSE 68; RESP 16; TEMP 36.8; O2SAT 97
[2021-05-01] MEDS: RIVAROXABAN 10 MG TABLET 15 MG PO (16:39)
[2021-05-01 16:48] LABS: Glucose Point of Care 191 mg/dl (65-105)
--- NOTE | 2021-05-01 18:33 | PC.NURSE ---
pt sitting up in chair, performing leg exercises upon entry to room, pt wishes to continue exercises for a bit longer, blanket on shoulders, call light in reach
[2021-05-01] MEDS: ACETAMINOPHEN/CODEINE (*CRX) 300/30 MG TABLET 1 TAB PO (19:06)
[2021-05-01 20:50] VITALS: PULSE 68
[2021-05-01 21:01] LABS: Glucose Point of Care 200 mg/dl (65-105)
[2021-05-02] VITALS: BP 180/84; PULSE 72; RESP 18; TEMP 36.5; O2SAT 98
[2021-05-02] MEDS: ACETAMINOPHEN/CODEINE (*CRX) 300/30 MG TABLET 1 TAB PO ×3 (02:11→15:01)
[2021-05-02] MEDS: LEVOTHYROXINE SODIUM 112 MCG TABLET PO (05:31)
--- NOTE | 2021-05-02 07:44 | PM.EVENT ---
Event Note Event Note Event Note: Added Losartan to regimen d/t elevated BP. <Eric Bower APN-Chanelle - Last Filed: 05/02/21 07:44>
[2021-05-02 08:00] VITALS: BP 157/85; PULSE 76; RESP 18; TEMP 36.6; O2SAT 98
[2021-05-02 08:02] LABS: Glucose Point of Care 109 mg/dl (65-105)
[2021-05-02 08:56] VITALS: PULSE 76
[2021-05-02] MEDS: FUROSEMIDE 20 MG TABLET PO (08:56)
[2021-05-02] MEDS: LOSARTAN POTASSIUM 25 MG TABLET PO (08:56)
[2021-05-02] MEDS: PRAVASTATIN SODIUM 10 MG TABLET PO (08:56)
[2021-05-02] MEDS: calcium polycarbophiL 625 MG TABLET 1250 MG PO ×2 (08:56→16:37)
[2021-05-02] MEDS: LIDOCAINE 5% PATCH 1 PATCH TOPICAL (08:56)
[2021-05-02] MEDS: POTASSIUM CHLORIDE 10 MEQ TABLET PO (08:56)
[2021-05-02] MEDS: SPIRONOLACTONE 25 MG TABLET PO (08:56)
[2021-05-02] MEDS: NITROFURANTOIN MONOHYD MACROCR 100 MG CAP PO ×2 (08:56→20:50)
[2021-05-02] MEDS: carvediloL 6.25 MG TABLET PO ×2 (08:56→20:49)
[2021-05-02 12:07] LABS: Glucose Point of Care 148 mg/dl (65-105)
[2021-05-02 15:41] VITALS: BP 144/73; PULSE 65; RESP 20; TEMP 36.7; O2SAT 97
[2021-05-02] MEDS: RIVAROXABAN 10 MG TABLET 15 MG PO (16:37)
[2021-05-02 16:44] LABS: Glucose Point of Care 193 mg/dl (65-105)
[2021-05-02] MEDS: ACETAMINOPHEN 325 MG TABLET PO (20:46)
[2021-05-02 20:49] VITALS: PULSE 65
[2021-05-02 20:55] LABS: Glucose Point of Care 192 mg/dl (65-105)
[2021-05-02 23:47] VITALS: BP 150/80; PULSE 71; RESP 16; TEMP 36.4; O2SAT 98
[2021-05-03] MEDS: ACETAMINOPHEN 325 MG TABLET PO (04:41)
[2021-05-03] MEDS: LEVOTHYROXINE SODIUM 112 MCG TABLET PO (04:41)
[2021-05-03 08:00] VITALS: BP 162/64; PULSE 69; RESP 16; TEMP 36.4; O2SAT 100
[2021-05-03 08:05] LABS: Glucose Point of Care 136 mg/dl (65-105)
[2021-05-03] MEDS: LIDOCAINE 5% PATCH 1 PATCH TOPICAL (08:50)
[2021-05-03] MEDS: SPIRONOLACTONE 25 MG TABLET PO (08:51)
[2021-05-03] MEDS: LOSARTAN POTASSIUM 25 MG TABLET PO (08:51)
[2021-05-03] MEDS: FUROSEMIDE 20 MG TABLET PO (08:51)
[2021-05-03] MEDS: NITROFURANTOIN MONOHYD MACROCR 100 MG CAP PO ×2 (08:52→19:49)
[2021-05-03] MEDS: POTASSIUM CHLORIDE 10 MEQ TABLET PO (08:52)
[2021-05-03] MEDS: calcium polycarbophiL 625 MG TABLET 1250 MG PO ×2 (08:52→17:05)
[2021-05-03 09:04] VITALS: PULSE 70
[2021-05-03] MEDS: carvediloL 6.25 MG TABLET PO ×2 (09:04→19:49)
[2021-05-03] MEDS: PRAVASTATIN SODIUM 10 MG TABLET PO (09:05)
[2021-05-03 11:49] LABS: Glucose Point of Care 192 mg/dl (65-105)
[2021-05-03] MEDS: LACTASE 3,000 UNIT TABLET 6000 UNIT PO ×2 (13:05→17:06)
--- NOTE | 2021-05-03 15:47 | PCCPR ---
RECEIVED ORDER FROM DR. LOZANO FOR CARDIAC REHAB. MET WITH PATIENT TODAY TO INTRODUCE PROGRAM AND MAKE AWARE OF ORDER TO GET STARTED AFTER DISCHARGE. PT APPREHENSIVE, TEARFUL, AND STATES THAT SHE JUST DOESN'T THINK SHE CAN DO IT, BUT SHE WILL TALK TO HER FAMILY ABOUT IT. OFFERED REASSURANCE. BROCHURE WITH CONTACT INFORMATION GIVEN TO PATIENT.
[2021-05-03 16:00] VITALS: BP 158/74; PULSE 81; RESP 18; TEMP 36.6; O2SAT 98
[2021-05-03 16:55] LABS: Glucose Point of Care 131 mg/dl (65-105)
[2021-05-03] MEDS: RIVAROXABAN 10 MG TABLET 15 MG PO (17:04)
[2021-05-03] MEDS: ACETAMINOPHEN/CODEINE (*CRX) 300/30 MG TABLET 1 TAB PO ×2 (19:48)
[2021-05-03 21:02] LABS: Glucose Point of Care 178 mg/dl (65-105)
[2021-05-04] VITALS: BP 149/76; PULSE 70; RESP 18; TEMP 36.5; O2SAT 97
[2021-05-04] MEDS: ACETAMINOPHEN/CODEINE (*CRX) 300/30 MG TABLET 1 TAB PO (04:54)
[2021-05-04] MEDS: LIDOCAINE 5% PATCH 1 PATCH TOPICAL (06:01)
[2021-05-04] MEDS: LEVOTHYROXINE SODIUM 112 MCG TABLET PO (06:01)
--- NOTE | 2021-05-04 06:07 | PC.NURSE ---
Patient requested/given Tylenol #3 @ 0454 for complaint of right rib area pain rated @ 9. When nurse reassessed for pain @ 0600 patient tearful and said the pain pill didn't help @ all. Patient requested her Lidocaine patch be put on early. Patch due @ 0900. Patch applied early. Patient has slept in recliner all night, sometimes having footstool part up and sometimes not. Asked patient if she would like to at least try laying in the bed and patient says that always makes it worse. Call light in reach.
[2021-05-04 08:00] VITALS: BP 148/74; PULSE 79; RESP 16; TEMP 36.4; O2SAT 98
[2021-05-04] MEDS: LACTASE 3,000 UNIT TABLET 6000 UNIT PO ×3 (08:00→17:13)
[2021-05-04 08:04] LABS: Glucose Point of Care 158 mg/dl (65-105)
[2021-05-04] MEDS: calcium polycarbophiL 625 MG TABLET 1250 MG PO ×2 (09:00→16:34)
[2021-05-04 09:13] VITALS: PULSE 79
[2021-05-04] MEDS: PRAVASTATIN SODIUM 10 MG TABLET PO (09:13)
[2021-05-04] MEDS: NITROFURANTOIN MONOHYD MACROCR 100 MG CAP PO ×2 (09:13→20:45)
[2021-05-04] MEDS: carvediloL 6.25 MG TABLET PO ×2 (09:13→20:45)
[2021-05-04] MEDS: SPIRONOLACTONE 25 MG TABLET PO (09:13)
[2021-05-04] MEDS: FUROSEMIDE 20 MG TABLET PO (09:14)
[2021-05-04] MEDS: POTASSIUM CHLORIDE 10 MEQ TABLET PO (09:14)
[2021-05-04] MEDS: LOSARTAN POTASSIUM 25 MG TABLET PO (09:14)
--- NOTE | 2021-05-04 10:04 | PM.EVENT ---
Event Note Event Note Event Note: Patient notes that her pain is not well controlled she was unable to sleep overnight or complete therapy as a result of her pain. Patient has multiple allergies listed for pain medication such as vomiting. According to patient she cannot recall having any confusion or difficulty breathing while taking some of her medications. We will start oxycodone which is listed as a allergy with vomiting to see how well she tolerates it. If she develops vomiting she does have Zofran and we will discontinue medication.
[2021-05-04] MEDS: ONDANSETRON HCL ODT 4 MG TABLET PO (10:43)
[2021-05-04] MEDS: oxyCODONE HCL (*CRX) 10 MG TAB SR 12HR PO ×2 (10:43→20:45)
[2021-05-04 12:00] LABS: Glucose Point of Care 180 mg/dl (65-105)
--- NOTE | 2021-05-04 14:39 | PCOTNOTE ---
OT attempted to see patient for PM session however patient reports that she is feeling dizzy. Nursing is aware. MS
[2021-05-04 16:00] VITALS: BP 136/71; PULSE 65; RESP 16; TEMP 36.4; O2SAT 98
[2021-05-04] MEDS: RIVAROXABAN 10 MG TABLET 15 MG PO (16:35)
[2021-05-04 16:54] LABS: Glucose Point of Care 155 mg/dl (65-105)
[2021-05-04 20:45] VITALS: PULSE 78
[2021-05-04 21:28] LABS: Glucose Point of Care 226 mg/dl (65-105)
[2021-05-05] VITALS: BP 144/75; PULSE 74; RESP 18; TEMP 36.4; O2SAT 96
[2021-05-05] MEDS: LEVOTHYROXINE SODIUM 112 MCG TABLET PO (06:15)
[2021-05-05 08:00] VITALS: BP 147/69; PULSE 64; RESP 12; TEMP 36.4; O2SAT 95
[2021-05-05 08:02] LABS: Glucose Point of Care 118 mg/dl (65-105)
[2021-05-05] MEDS: calcium polycarbophiL 625 MG TABLET 1250 MG PO ×2 (08:14→16:27)
[2021-05-05] MEDS: ACETAMINOPHEN 325 MG TABLET PO (08:15)
[2021-05-05] MEDS: LACTASE 3,000 UNIT TABLET 6000 UNIT PO ×3 (08:20→16:28)
[2021-05-05] MEDS: PRAVASTATIN SODIUM 10 MG TABLET PO (08:51)
[2021-05-05] MEDS: NITROFURANTOIN MONOHYD MACROCR 100 MG CAP PO ×2 (08:52→20:44)
[2021-05-05] MEDS: SPIRONOLACTONE 25 MG TABLET PO (08:52)
[2021-05-05 08:53] VITALS: PULSE 92
[2021-05-05] MEDS: carvediloL 6.25 MG TABLET PO ×2 (08:53→20:44)
[2021-05-05] MEDS: FUROSEMIDE 20 MG TABLET PO (08:53)
[2021-05-05] MEDS: LOSARTAN POTASSIUM 25 MG TABLET PO (08:53)
[2021-05-05] MEDS: POTASSIUM CHLORIDE 10 MEQ TABLET PO (08:53)
[2021-05-05] MEDS: LIDOCAINE 5% PATCH 1 PATCH TOPICAL (09:00)
[2021-05-05 11:54] LABS: Glucose Point of Care 155 mg/dl (65-105)
[2021-05-05] MEDS: oxyCODONE HCL (*CRX) 5 MG TAB IR PO ×2 (13:35→20:44)
[2021-05-05 15:26] VITALS: BP 148/62; PULSE 70; RESP 18; TEMP 36.3; O2SAT 97
[2021-05-05] MEDS: RIVAROXABAN 10 MG TABLET 15 MG PO (16:26)
[2021-05-05 17:13] LABS: Glucose Point of Care 168 mg/dl (65-105)
--- NOTE | 2021-05-05 18:43 | PC.NURSE ---
Pt sitting in chair reading paper, pt requests to wait on her pain medicine until closer to bed time so she can sleep. No other c/o at this time.
[2021-05-05 20:44] VITALS: PULSE 84
[2021-05-05 21:41] LABS: Glucose Point of Care 190 mg/dl (65-105)
[2021-05-06] VITALS: BP 168/84; PULSE 84; RESP 18; TEMP 36.3; O2SAT 91
[2021-05-06] MEDS: oxyCODONE HCL (*CRX) 5 MG TAB IR PO ×2 (00:24→05:47)
[2021-05-06] MEDS: LEVOTHYROXINE SODIUM 112 MCG TABLET PO (05:47)
[2021-05-06 07:38] LABS: Glucose Point of Care 141 mg/dl (65-105)
[2021-05-06 07:47] VITALS: BP 141/67; PULSE 69; RESP 16; TEMP 36.6; O2SAT 95
[2021-05-06] MEDS: PRAVASTATIN SODIUM 10 MG TABLET PO (08:56)
[2021-05-06] MEDS: SPIRONOLACTONE 25 MG TABLET PO (08:58)
[2021-05-06] MEDS: FUROSEMIDE 20 MG TABLET PO (08:58)
[2021-05-06 08:59] VITALS: PULSE 69
[2021-05-06] MEDS: POTASSIUM CHLORIDE 10 MEQ TABLET PO (08:59)
[2021-05-06] MEDS: carvediloL 6.25 MG TABLET PO ×2 (08:59→21:02)
[2021-05-06] MEDS: LOSARTAN POTASSIUM 25 MG TABLET PO (08:59)
[2021-05-06] MEDS: ONDANSETRON HCL ODT 4 MG TABLET PO (08:59)
[2021-05-06] MEDS: NITROFURANTOIN MONOHYD MACROCR 100 MG CAP PO ×2 (08:59→21:02)
[2021-05-06] MEDS: calcium polycarbophiL 625 MG TABLET 1250 MG PO ×2 (08:59→16:50)
[2021-05-06] MEDS: LIDOCAINE 5% PATCH 1 PATCH TOPICAL (09:00)
[2021-05-06] MEDS: MORPHINE SULFATE (*CRX) 15 MG TABCR PO ×2 (10:04→21:02)
[2021-05-06 11:31] LABS: Glucose Point of Care 177 mg/dl (65-105)
[2021-05-06] MEDS: LACTASE 3,000 UNIT TABLET 6000 UNIT PO ×2 (12:04→17:06)
--- NOTE | 2021-05-06 13:44 | PHAR ---
05/06/21: VERIFIED PT.'S HOME SUPPLY OF LACTASE. TLS
[2021-05-06 16:00] VITALS: BP 138/74; PULSE 64; RESP 16; TEMP 36.5; O2SAT 99
[2021-05-06 16:19] LABS: Glucose Point of Care 93 mg/dl (65-105)
[2021-05-06] MEDS: RIVAROXABAN 10 MG TABLET 15 MG PO (16:50)
[2021-05-06 21:02] VITALS: PULSE 64
[2021-05-06 22:02] LABS: Glucose Point of Care 204 mg/dl (65-105)
[2021-05-07] VITALS: BP 178/77; PULSE 72; RESP 18; TEMP 36.3; O2SAT 98
--- NOTE | 2021-05-07 02:15 | PC.NURSE ---
Patient rounding completed. Patient is sleeping comfortably in bed, with no visible or audible signs of pain or discomfort.
[2021-05-07 05:17] LABS: Hematocrit 40.5 % (35.0-42.0); Hemoglobin 12.9 g/dL (11.7-13.8); Mean Corpuscular HGB Conc 31.9 g/dL (32.0-36.0); Mean Corpuscular Hemoglobin 29.9 pg (27.0-31.0); Mean Platelet Volume 10.4 fl (9.2-11.8); Platelet Count Result 216 K/mm3 (150-420); Red Blood Count 4.31 M/mm3 (4.20-5.40); Red Cell Distribution Width 13.5 % (11.6-14.4); White Blood Count 7.3 K/mm3 (4.8-10.8)
[2021-05-07 05:34] LABS: Alanine Aminotransferase 40 U/L (14-59); Albumin Level 3.8 g/dL (3.4-5.0); Alkaline Phosphatase 119 U/L (46-116); Anion Gap 7 mmol/L (8-16); Aspartate Amino Transferase 17 U/L (15-37); Bilirubin,Total 0.3 mg/dL (0.00-1.00); Blood Urea Nitrogen 28 mg/dL (7-18); Calcium 9.7 mg/dL (8.5-10.1); Carbon Dioxide 28 mmol/L (21-32); Chloride 100 mmol/L (98-108); Estimated CRCL calculation 32 ml/min; Estimated Glomerular Filt Rate 58; Glucose 111 mg/dL (70-99); Osmolality Calculated 286 mOsm/kg (285-295); Potassium 4.9 mmol/L (3.5-5.1); Sodium 135 mmol/L (136-145); Total Protein 7.2 g/dL (6.4-8.2)
[2021-05-07] MEDS: LEVOTHYROXINE SODIUM 112 MCG TABLET PO (06:52)
[2021-05-07 07:29] VITALS: BP 130/64; PULSE 66; RESP 16; TEMP 36.7; O2SAT 97
[2021-05-07 07:50] LABS: Glucose Point of Care 133 mg/dl (65-105)
[2021-05-07] MEDS: LACTASE 3,000 UNIT TABLET 6000 UNIT PO (08:11)
[2021-05-07] MEDS: LIDOCAINE 5% PATCH 1 PATCH TOPICAL (08:12)
[2021-05-07 08:13] VITALS: PULSE 66
[2021-05-07] MEDS: carvediloL 6.25 MG TABLET PO ×2 (08:13→21:42)
[2021-05-07] MEDS: PRAVASTATIN SODIUM 10 MG TABLET PO (08:13)
[2021-05-07] MEDS: NITROFURANTOIN MONOHYD MACROCR 100 MG CAP PO ×2 (08:13→21:43)
[2021-05-07] MEDS: LOSARTAN POTASSIUM 25 MG TABLET PO (08:14)
[2021-05-07] MEDS: SPIRONOLACTONE 25 MG TABLET PO (08:14)
[2021-05-07] MEDS: calcium polycarbophiL 625 MG TABLET 1250 MG PO ×2 (08:14→16:36)
[2021-05-07] MEDS: POTASSIUM CHLORIDE 10 MEQ TABLET PO (08:14)
[2021-05-07] MEDS: MORPHINE SULFATE (*CRX) 15 MG TABCR PO (08:15)
[2021-05-07] MEDS: FUROSEMIDE 20 MG TABLET PO (08:15)
--- NOTE | 2021-05-07 11:08 | PCOTNOTE ---
On 05/07/21, the student, [Ruthy Bradshaw ], provided care and completed [facility] documentation on this patient. I have reviewed the student's documentation and agree with the findings.MS
--- NOTE | 2021-05-07 11:13 | PM.EVENT ---
Event Note Event Note Event Note: Patient pain is controlled with morphine but she thinks that it is too strong. We will start morphine continue Tylenol 3 for pain relief.
[2021-05-07 11:31] LABS: Glucose Point of Care 180 mg/dl (65-105)
[2021-05-07 15:42] VITALS: BP 133/65; PULSE 58; RESP 16; TEMP 36.4; O2SAT 98
[2021-05-07 16:24] LABS: Glucose Point of Care 145 mg/dl (65-105)
[2021-05-07] MEDS: RIVAROXABAN 10 MG TABLET 15 MG PO (18:38)
--- NOTE | 2021-05-07 19:00 | PC.NURSE ---
Bedside report completed. Patient sleeping comfortably in bed without any pain indicators.
[2021-05-07 21:42] VITALS: PULSE 78
[2021-05-07 21:57] LABS: Glucose Point of Care 154 mg/dl (65-105)
[2021-05-08] VITALS: BP 134/55; PULSE 62; RESP 18; TEMP 36.4; O2SAT 98
--- NOTE | 2021-05-08 02:00 | PC.NURSE ---
Completed patient rounding. Patient was sleeping comfortably in her bed.
--- NOTE | 2021-05-08 04:00 | PC.NURSE ---
Completed patient rounding. Patient needed to use the toilet. Patient ambulated safely to the toilet using her walker. She was able to toilet independently and washed her hands before returning to bed.
[2021-05-08] MEDS: LEVOTHYROXINE SODIUM 112 MCG TABLET PO (06:31)
[2021-05-08 08:00] VITALS: BP 158/73; PULSE 84; RESP 18; TEMP 36.4; O2SAT 99
[2021-05-08 08:02] LABS: Glucose Point of Care 150 mg/dl (65-105)
--- NOTE | 2021-05-08 08:02 | PC.NURSE ---
Up to chair for breakfast, delilah TINOCO
[2021-05-08] MEDS: calcium polycarbophiL 625 MG TABLET 1250 MG PO (08:20)
[2021-05-08] MEDS: LIDOCAINE 5% PATCH 1 PATCH TOPICAL (08:20)
[2021-05-08] MEDS: POTASSIUM CHLORIDE 10 MEQ TABLET PO (08:21)
[2021-05-08] MEDS: FUROSEMIDE 20 MG TABLET PO (08:21)
[2021-05-08] MEDS: SPIRONOLACTONE 25 MG TABLET PO (08:21)
[2021-05-08] MEDS: LOSARTAN POTASSIUM 25 MG TABLET PO (08:21)
[2021-05-08 08:22] VITALS: PULSE 90
[2021-05-08] MEDS: NITROFURANTOIN MONOHYD MACROCR 100 MG CAP PO (08:22)
[2021-05-08] MEDS: carvediloL 6.25 MG TABLET PO (08:22)
[2021-05-08] MEDS: PRAVASTATIN SODIUM 10 MG TABLET PO (08:22)
--- NOTE | 2021-05-08 09:55 | PM.DS ---
DS: Admitting Diagnosis Admitting Diagnosis Rehab, weakness DS: Discharge Diagnosis Discharge Diagnosis (1) Physical deconditioning: Code(s): R53.81 - Other malaise Status: Acute Assessment and Plan: Pt to work with PT and OT for the following: Relieve pain, Improve movement or ability, Prevent and recover from an injury, Prevent disability or surgery, Rehab after a stroke, injury, Work on balance to prevent a slip or fall, Control your bowels or bladder, Learn to use assistive devices like a walker or cane if needed. Discharge Patient ambulating 2 x 200 feet with 4 wheeled walker and moderate independent standby assist (2) Closed pelvic fracture: Qualifiers: Encounter type: initial encounter Laterality: left Pelvic bone location: acetabulum Sublocation of acetabulum: other portion of acetabulum Qualified Code(s): S32.492A - Other specified fracture of left acetabulum, initial encounter for closed fracture Code(s): S32.9XXA - Fracture of unspecified parts of lumbosacral spine and pelvis, initial encounter for closed fracture Status: Acute Assessment and Plan: Pain management with Tylenol, Lidocaine Patch, Tylenol III (Pt does not have a true allergy to this, she states this makes her tired without other SE), work with PT/OT. Discharge Continue pain medication follow-up primary care physician (3) Ribs, multiple fractures: Code(s): S22.49XA - Multiple fractures of ribs, unspecified side, initial encounter for closed fracture Status: Acute Assessment and Plan: Pain management with Tylenol, Lidocaine Patch, Tylenol III (Pt does not have a true allergy to this, she states this makes her tired without other SE), work with PT/OT. Discharge Continue pain medication follow-up primary care physician (4) Hypertension: Code(s): I10 - Essential (primary) hypertension Status: Acute Assessment and Plan: BP elevated, increase Coreg to 6.25 mg, monitor VS, make further adjustments to medications or addition of medications as needed with respect to Pt's multiple medication allergies. Discharge Continue home meds (5) A-fib: Code(s): I48.91 - Unspecified atrial fibrillation Status: Chronic Assessment and Plan: Continue Xarelto (6) Hypothyroidism: Qualifiers: Hypothyroidism type: unspecified Qualified Code(s): E03.9 - Hypothyroidism, unspecified Code(s): E03.9 - Hypothyroidism, unspecified Status: Acute Assessment and Plan: Continue Levothyroxine 112 mcg (7) Diabetes mellitus: Code(s): E11.9 - Type 2 diabetes mellitus without complications Status: Acute Assessment and Plan: Continue home medications which will be brought in from home, SSI, Accu-checks ACHS, Hypoglycemic protocol in place Discharge Continue home meds (8) NSTEMI (non-ST elevated myocardial infarction): Code(s): I21.4 - Non-ST elevation (NSTEMI) myocardial infarction Status: Acute Assessment and Plan: No CP at this time, only right side rib pain from 7th and 9th rib Fx, stable. DS: Summary Hospital Course Reason for hospitalization: Weakness Hospital Course: Dinorah Thorpe is an 85 year old female who comes to [facility] for rehabilitation after having fallen and chest pain resulting in a NSTEMI vs ACS that was and is being managed medically. Her troponin level was 1236.1 and 1134.8 at [place] [address] as well. Her fall resulted in a non-displaced sacral ala fracture and 7th and 9th rib fractures. Her head CT did not show an evolving stroke though at that time it was believed to have been a CVA as she did have some facial droop and dysarthria on admission to [facility]. Due to pacemaker Dinorah was unable to have an MRI. Echo from 2013 indicated LVEF at 45% and EKG at [facility] showed SR with occasional paced rhythm per their documentation. She also had 4XCABG in the
--- NOTE | 2021-05-08 11:16 | PC.NURSE ---
Reviewed discharge instructions with patient along with new medications, no questions,
--- NOTE | 2021-05-08 14:00 | PC.NURSE ---
Discharge via wheel chair to home, all personal items and medications from home returned to patient
== END 2021-05-08 14:00 | disposition home or self-care (01) | DRG 559 ==
PROVIDERS: Nurse Practitioner; Nurse Practitioner Family; Admitting Provider Emergency Medicine; PCP Internal Medicine; Visit Provider Emergency Medicine
DX: S32.19XD Other fracture of sacrum, subsequent encounter for fracture with routine healing (principal); I21.4 Non-ST elevation (NSTEMI) myocardial infarction; I13.0 Hypertensive heart and chronic kidney disease with heart failure and stage 1 through stage 4 chronic kidney disease, or unspecified chronic kidney disease; I48.92 Unspecified atrial flutter; S22.49XD Multiple fractures of ribs, unspecified side, subsequent encounter for fracture with routine healing; I50.9 Heart failure, unspecified; N18.30 Chronic kidney disease, stage 3 unspecified; E11.22 Type 2 diabetes mellitus with diabetic chronic kidney disease; E11.42 Type 2 diabetes mellitus with diabetic polyneuropathy; I25.10 Atherosclerotic heart disease of native coronary artery without angina pectoris; E78.5 Hyperlipidemia, unspecified; E03.9 Hypothyroidism, unspecified; D64.9 Anemia, unspecified; K22.2 Esophageal obstruction; W19.XXXD Unspecified fall, subsequent encounter; Z96.1 Presence of intraocular lens; Z95.0 Presence of cardiac pacemaker; Z79.01 Long term (current) use of anticoagulants; Z86.73 Personal history of transient ischemic attack (TIA), and cerebral infarction without residual deficits; Z90.49 Acquired absence of other specified parts of digestive tract; Z86.010 Personal history of colon polyps; Z95.1 Presence of aortocoronary bypass graft; Z98.42 Cataract extraction status, left eye; Z98.41 Cataract extraction status, right eye; Z90.710 Acquired absence of both cervix and uterus; Z90.721 Acquired absence of ovaries, unilateral
CPT/HCPCS: 36415; 80053; 82948; 85025; 85027; 97110; 97116; 97161; 97165; 97530; 97535; A9270; J1815

== ENCOUNTER 2021-07-04 09:36 | Emergency (ER) | payer MEDICARE, SELFPAY ==
[2021-07-04 09:45] VITALS: BP 155/65; PULSE 79; RESP 18; TEMP 36.6; O2SAT 98
--- NOTE | 2021-07-04 10:00 | ED.ABDPAIN ---
HPI - Abdominal Pain General Chief Complaint: Abdominal Pain Stated Complaint: stomach pain/diahrrea Source: patient, family and RN notes reviewed Mode of arrival: ambulatory Limitations: no limitations History of Present Illness MD elicited complaint: abdominal pain Pertinent past history: other (colitis) Onset (ago): day(s) (2-3) Pain Consistency: intermittent Location: diffuse Severity: severe Quality: cramping Radiation: none Migration to: no migration Exacerbating factors: eating Relieving factors: nothing Associated symptoms: nausea, vomiting and diarrhea Related Data Home Medications Medication Instructions Recorded Confirmed Ozempic 0.5 mg SUBCUT WEEKLY 10/21/20 07/04/21 levothyroxine 112 mcg PO DAILY 10/21/20 07/04/21 pravastatin 20 mg tablet 10 mg PO HS 04/12/21 07/04/21 carvedilol [Coreg] 3.125 mg PO Q12H 04/15/21 07/04/21 furosemide 20 mg PO DAILY 04/15/21 07/04/21 potassium chloride 10 meq PO DAILY 04/15/21 07/04/21 Xarelto 15 mg PO QPM 04/29/21 07/04/21 mesalamine 2.4 g PO DAILY 04/29/21 07/04/21 aspirin 81 mg tablet,delayed 81 mg PO DAILY 05/10/21 07/04/21 release spironolactone 25 mg PO DAILY 07/04/21 07/04/21 Allergies Allergy/AdvReac Type Severity Reaction Status Date / Time adhesive tape Allergy Severe BLISTERS Verified 07/04/21 10:00 amiodarone Allergy Severe N/V, Verified 07/04/21 10:00 HEADACHE, HOSPITALIZED atorvastatin Allergy Severe SWELLING Verified 07/04/21 10:00 clindamycin Allergy Severe TACHYCARDIA Verified 07/04/21 10:00 gabapentin Allergy Severe CHF Verified 07/04/21 10:00 gemfibrozil Allergy Severe ELEVATED Verified 07/04/21 10:00 CHOLESTEROL nifedipine Allergy Severe SWELLING Verified 07/04/21 10:00 norfloxacin Allergy Severe SWELLING Verified 07/04/21 10:00 rofecoxib Allergy Severe UPSET Verified 07/04/21 10:00 STOMACH, CAN TAKE WITH MEALS adhesive Allergy Intermediate Unknown Verified 07/04/21 10:00 chlorpheniramine [Ornade] Allergy Intermediate Unknown Verified 07/04/21 10:00 doxycycline Allergy Intermediate Unknown Verified 07/04/21 10:00 erythromycin base Allergy Intermediate Unknown Verified 07/04/21 10:00 flurbiprofen [Ansaid] Allergy Intermediate Unknown Verified 07/04/21 10:00 tetracycline Allergy Intermediate Unconscious Verified 07/04/21 10:00 tramadol [Ultram] Allergy Intermediate Unknown Verified 07/04/21 10:00 cephalexin Allergy Mild Rash Verified 07/04/21 10:00 ciprofloxacin Allergy Unknown Unknown Verified 07/04/21 10:00 diclofenac Allergy Unknown Unknown Verified 07/04/21 10:00 hydroxyzine Allergy Unknown Unknown Verified 07/04/21 10:00 Penicillins Allergy Unknown Unknown Verified 07/04/21 10:00 propoxyphene Allergy Unknown Unknown Verified 07/04/21 10:00 terfenadine Allergy Unknown Unknown Verified 07/04/21 10:00 butorphanol AdvReac Severe RESTLESSNES Verified 07/04/21 10:00 S cerivastatin AdvReac Severe ABDOMINAL Verified 07/04/21 10:00 PAIN, H/A dexamethasone AdvReac Severe IRRITATED Verified 07/04/21 10:00 EYES duloxetine AdvReac Severe H/A Verified 07/04/21 10:00 enalaprilat AdvReac Severe COUGH Verified 07/04/21 10:00 guaifenesin AdvReac Severe NERVOUSNESS Verified 07/04/21 10:00 hydrocodone AdvReac Severe N/V Verified 07/04/21 10:00 isosorbide AdvReac Severe H/A Verified 07/04/21 10:00 levofloxacin AdvReac Severe VOMITING Verified 07/04/21 10:00 meperidine AdvReac Severe H/A Verified 07/04/21 10:00 nitroglycerin AdvReac Severe VOMITING Verified 07/04/21 10:00 oxycodone AdvReac Severe VOMITING Verified 07/04/21 10:00 phenylephrine AdvReac Severe NERVOUSNESS Verified 07/04/21 10:00 phenylpropanolamine AdvReac Severe NERVOUSNESS Verified 07/04/21 10:00 prednisone AdvReac Severe H/A Verified 07/04/21 10:00 tobramycin AdvReac Severe IRRITATED Verified 07/04/21 10:00 EYES codeine AdvReac Intermediate Tired Verified 07/04/21 10:00 Review of Systems Review of Systems: All systems reviewed & are unremarkable except as no
[2021-07-04 10:24] LABS: Basophils Absolute Auto 0.03 K/mm3 (0.00-0.10); Basophils Percent Auto 0.4 % (0.0-1.0); Eosinophils Absolute Auto 0.18 K/mm3 (0.02-0.50); Eosinophils Percent Auto 2.5 % (1.0-6.0); Hematocrit 38.3 % (35.0-42.0); Hemoglobin 12.8 g/dL (11.7-13.8); Immature Granulocyte Absolute 0.02 K/mm3 (0.00-0.00); Immature Granulocyte Percent A 0.3 % (0.0-0.0); Lymphocytes Absolute Auto 0.99 K/mm3 (1.10-4.50); Lymphocytes Percent Auto 13.7 % (18.0-42.0); Mean Corpuscular HGB Conc 33.4 g/dL (32.0-36.0); Mean Corpuscular Hemoglobin 30.8 pg (27.0-31.0); Mean Corpuscular Volume 92.1 fL (78.0-102.0); Mean Platelet Volume 9.7 fl (9.2-11.8); Monocytes Absolute Auto 0.42 K/mm3 (0.10-0.90); Monocytes Percent Auto 5.8 % (2.0-11.0); Neutrophils Absolute Auto 5.6 K/mm3 (1.7-7.2); Neutrophils Percent Auto 77.3 % (50.0-70.0); Platelet Count Result 196 K/mm3 (150-420); Red Blood Count 4.16 M/mm3 (4.20-5.40); Red Cell Distribution Width 13.5 % (11.6-14.4); White Blood Count 7.2 K/mm3 (4.8-10.8)
[2021-07-04 10:40] LABS: Alanine Aminotransferase 37 U/L (14-59); Albumin Level 3.6 g/dL (3.4-5.0); Alkaline Phosphatase 74 U/L (46-116); Anion Gap 9 mmol/L (8-16); Aspartate Amino Transferase 17 U/L (15-37); Bilirubin,Total 0.6 mg/dL (0.00-1.00); Blood Urea Nitrogen 23 mg/dL (7-18); Calcium 8.8 mg/dL (8.5-10.1); Carbon Dioxide 29 mmol/L (21-32); Chloride 102 mmol/L (98-108); Estimated CRCL calculation 29 ml/min; Estimated Glomerular Filt Rate 56; Glucose 129 mg/dL (70-99); Lipase 59 U/L (73-393); Osmolality Calculated 295 mOsm/kg (285-295); Potassium 3.7 mmol/L (3.5-5.1); Sodium 140 mmol/L (136-145)
[2021-07-04 10:41] LABS: CRP < 0.2 mg/dL (0.0-0.9)
--- NOTE | 2021-07-04 10:42 | PC.NURSE ---
pt taken to bathroom to void. unable to void on command. pt is normally urine incontinent. pt straight cathed with a #8f cath and clear yellow urine obtained for lab specimen. pt tolerated procedure well. rails ^ bilat and call chan within reach. spouse at bedside.
[2021-07-04 10:44] LABS: Add Urine Microscopic? YES; Appearance Urine Clear (Clear); Bilirubin Urine Negative (Negative); Blood Urine Negative (Negative); Color Urine Light Yellow (Yellow); Glucose Urine UA Negative (Negative); Ketones Urine Negative (Negative); Leukocyte Esterase Ur Trace LEU/UL (Negative); Nitrate Urine Positive (Negative); Protein Urine Negative (Negative); Specific Grav Ur 1.015 (1.010-1.020); Urobilinogen Urine 0.2 mg/dL (0.2-1.0)
[2021-07-04 10:45] LABS: Lactic Acid Reflex 1.8 mmol/L (0.4-2.0)
[2021-07-04 10:50] LABS: Bacteria Urine 3+ /hpf; RBC Urine 0-2 /hpf (0-2); Squamous Epithelial Cell Urine None seen /hpf (Few)
[2021-07-04 11:10] VITALS: BP 135/60; PULSE 70; RESP 16; O2SAT 99
--- NOTE | 2021-07-06 10:53 | PC.NURSE ---
attempted to call pt to change ABX due to culture results. no answer. message left. will try to call back later.
--- NOTE | 2021-07-06 15:07 | PC.NURSE ---
pt contacted via phone. pt states her PMD called in a new ABX already today.
== END 2021-07-04 11:11 | disposition home or self-care (01) ==
PROVIDERS: Emergency Provider Emergency Medicine; PCP Internal Medicine
DX: N30.00 Acute cystitis without hematuria (principal); Z79.01 Long term (current) use of anticoagulants; I50.9 Heart failure, unspecified; I25.10 Atherosclerotic heart disease of native coronary artery without angina pectoris; E11.9 Type 2 diabetes mellitus without complications; E78.5 Hyperlipidemia, unspecified; I10 Essential (primary) hypertension; E03.9 Hypothyroidism, unspecified
CPT/HCPCS: 36415; 80053; 81001; 83605; 83690; 85025; 86140; 87077; 87086; 87088; 87186; 99283

== ENCOUNTER 2021-07-07 11:34 | Emergency (ER) | payer MEDICARE, SELFPAY ==
[2021-07-07 11:50] VITALS: BP 139/68; PULSE 68; RESP 18; TEMP 36.9; O2SAT 97
[2021-07-07] MEDS: ACETAMINOPHEN 500 MG TABLET 1000 MG PO (12:14)
[2021-07-07 12:16] LABS: Basophils Absolute Auto 0.03 K/mm3 (0.00-0.10); Basophils Percent Auto 0.4 % (0.0-1.0); Eosinophils Absolute Auto 0.15 K/mm3 (0.02-0.50); Eosinophils Percent Auto 2.2 % (1.0-6.0); Hemoglobin 11.6 g/dL (11.7-13.8); Immature Granulocyte Absolute 0.03 K/mm3 (0.00-0.00); Immature Granulocyte Percent A 0.4 % (0.0-0.0); Lymphocytes Absolute Auto 0.88 K/mm3 (1.10-4.50); Mean Corpuscular HGB Conc 35.2 g/dL (32.0-36.0); Mean Corpuscular Hemoglobin 32.4 pg (27.0-31.0); Mean Corpuscular Volume 92.2 fL (78.0-102.0); Mean Platelet Volume 9.7 fl (9.2-11.8); Monocytes Absolute Auto 0.43 K/mm3 (0.10-0.90); Monocytes Percent Auto 6.3 % (2.0-11.0); Neutrophils Absolute Auto 5.3 K/mm3 (1.7-7.2); Neutrophils Percent Auto 77.7 % (50.0-70.0); Platelet Count Result 167 K/mm3 (150-420); Red Blood Count 3.58 M/mm3 (4.20-5.40); Red Cell Distribution Width 13.5 % (11.6-14.4); White Blood Count 6.8 K/mm3 (4.8-10.8)
--- NOTE | 2021-07-07 12:17 | ED.GENADULT ---
HPI - General Adult General Chief complaint: GI Bleed Stated complaint: bloody diarrhea Source: patient and family Mode of arrival: ambulatory Limitations: no limitations History of Present Illness HPI narrative: Dinorah is an 85F with a complex PMH of CAD, HTN, Aflutter, CHF, HLD, DMII, HTN, and GERD that presented to the with rectal bleeding and diarrhea. She has had weight loss for many months and had some abdominal pain for some months. However, a few days ago she started have a few episodes of blood tinged diarrhea daily and pain in her rectum. Related Data Home Medications Medication Instructions Recorded Confirmed Ozempic 0.5 mg SUBCUT WEEKLY 10/21/20 07/04/21 levothyroxine 112 mcg PO DAILY 10/21/20 07/04/21 pravastatin 20 mg tablet 10 mg PO HS 04/12/21 07/04/21 carvedilol [Coreg] 3.125 mg PO Q12H 04/15/21 07/04/21 furosemide 20 mg PO DAILY 04/15/21 07/04/21 potassium chloride 10 meq PO DAILY 04/15/21 07/04/21 Xarelto 15 mg PO QPM 04/29/21 07/04/21 mesalamine 2.4 g PO DAILY 04/29/21 07/04/21 aspirin 81 mg tablet,delayed 81 mg PO DAILY 05/10/21 07/04/21 release spironolactone 25 mg PO DAILY 07/04/21 07/04/21 Allergies Allergy/AdvReac Type Severity Reaction Status Date / Time adhesive tape Allergy Severe BLISTERS Verified 07/04/21 10:00 amiodarone Allergy Severe N/V, Verified 07/04/21 10:00 HEADACHE, HOSPITALIZED atorvastatin Allergy Severe SWELLING Verified 07/04/21 10:00 clindamycin Allergy Severe TACHYCARDIA Verified 07/04/21 10:00 gabapentin Allergy Severe CHF Verified 07/04/21 10:00 gemfibrozil Allergy Severe ELEVATED Verified 07/04/21 10:00 CHOLESTEROL nifedipine Allergy Severe SWELLING Verified 07/04/21 10:00 norfloxacin Allergy Severe SWELLING Verified 07/04/21 10:00 rofecoxib Allergy Severe UPSET Verified 07/04/21 10:00 STOMACH, CAN TAKE WITH MEALS adhesive Allergy Intermediate Unknown Verified 07/04/21 10:00 chlorpheniramine [Ornade] Allergy Intermediate Unknown Verified 07/04/21 10:00 doxycycline Allergy Intermediate Unknown Verified 07/04/21 10:00 erythromycin base Allergy Intermediate Unknown Verified 07/04/21 10:00 flurbiprofen [Ansaid] Allergy Intermediate Unknown Verified 07/04/21 10:00 tetracycline Allergy Intermediate Unconscious Verified 07/04/21 10:00 tramadol [Ultram] Allergy Intermediate Unknown Verified 07/04/21 10:00 cephalexin Allergy Mild Rash Verified 07/04/21 10:00 ciprofloxacin Allergy Unknown Unknown Verified 07/04/21 10:00 diclofenac Allergy Unknown Unknown Verified 07/04/21 10:00 hydroxyzine Allergy Unknown Unknown Verified 07/04/21 10:00 Penicillins Allergy Unknown Unknown Verified 07/04/21 10:00 propoxyphene Allergy Unknown Unknown Verified 07/04/21 10:00 terfenadine Allergy Unknown Unknown Verified 07/04/21 10:00 butorphanol AdvReac Severe RESTLESSNES Verified 07/04/21 10:00 S cerivastatin AdvReac Severe ABDOMINAL Verified 07/04/21 10:00 PAIN, H/A dexamethasone AdvReac Severe IRRITATED Verified 07/04/21 10:00 EYES duloxetine AdvReac Severe H/A Verified 07/04/21 10:00 enalaprilat AdvReac Severe COUGH Verified 07/04/21 10:00 guaifenesin AdvReac Severe NERVOUSNESS Verified 07/04/21 10:00 hydrocodone AdvReac Severe N/V Verified 07/04/21 10:00 isosorbide AdvReac Severe H/A Verified 07/04/21 10:00 levofloxacin AdvReac Severe VOMITING Verified 07/04/21 10:00 meperidine AdvReac Severe H/A Verified 07/04/21 10:00 nitroglycerin AdvReac Severe VOMITING Verified 07/04/21 10:00 oxycodone AdvReac Severe VOMITING Verified 07/04/21 10:00 phenylephrine AdvReac Severe NERVOUSNESS Verified 07/04/21 10:00 phenylpropanolamine AdvReac Severe NERVOUSNESS Verified 07/04/21 10:00 prednisone AdvReac Severe H/A Verified 07/04/21 10:00 tobramycin AdvReac Severe IRRITATED Verified 07/04/21 10:00 EYES codeine AdvReac Intermediate Tired Verified 07/04/21 10:00 Review of Systems Constitutional: Constitutional: Reports fatigue and Reports weakness Eyes: Eyes: Reports
[2021-07-07 12:27] LABS: INR 1.1; Prothrombin Time 11.8 Seconds (9.50-12.10)
[2021-07-07 12:31] LABS: Alanine Aminotransferase 64 U/L (14-59); Albumin Level 3.2 g/dL (3.4-5.0); Alkaline Phosphatase 82 U/L (46-116); Anion Gap 12 mmol/L (8-16); Aspartate Amino Transferase 34 U/L (15-37); Bilirubin,Total 0.4 mg/dL (0.00-1.00); Blood Urea Nitrogen 20 mg/dL (7-18); Calcium 8.7 mg/dL (8.5-10.1); Carbon Dioxide 28 mmol/L (21-32); Chloride 101 mmol/L (98-108); Estimated CRCL calculation 35 ml/min; Estimated Glomerular Filt Rate > 60; Glucose 108 mg/dL (70-99); Lipase 87 U/L (73-393); Osmolality Calculated 295 mOsm/kg (285-295); Potassium 3.2 mmol/L (3.5-5.1); Sodium 141 mmol/L (136-145); Total Protein 6.3 g/dL (6.4-8.2)
--- NOTE | 2021-07-07 13:00 | PC.NURSE ---
Called PCP office to have GI referral placed. Nurse at Dr. Wellington's office states they already have a referral placed.
[2021-07-07 13:11] LABS: Lactic Acid Reflex 1.2 mmol/L (0.4-2.0)
[2021-07-07 13:15] LABS: CRP < 0.2 mg/dL (0.0-0.9)
== END 2021-07-07 13:10 | disposition home or self-care (01) ==
PROVIDERS: Emergency Provider Family Medicine; PCP Internal Medicine
DX: K62.5 Hemorrhage of anus and rectum (principal); Z79.01 Long term (current) use of anticoagulants; I12.9 Hypertensive chronic kidney disease with stage 1 through stage 4 chronic kidney disease, or unspecified chronic kidney disease; N18.30 Chronic kidney disease, stage 3 unspecified; E03.9 Hypothyroidism, unspecified; E11.9 Type 2 diabetes mellitus without complications
CPT/HCPCS: 36415; 80053; 83605; 83690; 85025; 85610; 86140; 99282; 99283

== ENCOUNTER 2021-07-07 16:04 | Observation (INO) | payer MEDICARE, SELFPAY ==
[2021-07-07] VITALS (18 sets, daily range): BP systolic 105–145; BP diastolic 48–117; PULSE 62–86; RESP 13–18; TEMP 36.2–36.3; O2SAT 97–100; BMI 17.7
--- NOTE | ~2021-07-07 | CT_ITS ---
EXAMINATION: CT abdomen pelvis w con DATE: 07/07/2021 17:59 INDICATION: Rectal bleeding TECHNIQUE: Computed tomography (CT) of the abdomen and pelvis was performed with 100 cc Omnipaque 350 intravenous contrast. The dose-length product was 287.53 mGy-cm. Automated exposure control and iter ative reconstruction technique were employed. COMPARISON: CT dated 04/25/2021. FINDINGS: Lung bases are unremarkable. Status post median sternotomy for CABG. Heart size normal. No significant pleural or pericardial effusion. There is bilateral adrenal thickening, nonspecific. The liver, spleen, and kidneys are unremarkable. Status post cholecystectomy. There is pancreatic atrophy . Nonobstructive bowel gas pattern. There is atherosclerosis. There is mild nonspecific thickening of the sigmoid colon and rectum. No free air or free fluid. No lymphadenopathy. There is atherosclerosi s without aneurysm. There is gas in the bladder, likely from instrumentation. Clinically correlate. H ealed right pubic rami fractures. 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 Moderate mayra mbar spondylosis. IMPRESSION: 1. There is mild nonspecific thickening of the sigmoid colon and rectum, suspicious for proctocolitis . 2: Bilateral adrenal thickening, likely hyperplasia. Reviewed, dictated and finalized at location A. IMPRESSION: 1. There is mild nonspecific thickening of the sigmoid colon and rectum, suspic ious for proctocolitis. 2: Bilateral adrenal thickening, likely hyperplasia.
[2021-07-07 16:53] LABS: Basophils Percent Auto 0.6 % (0.2-1.2); Eosinophils Absolute Auto 0.2 K/mm3 (0-0.3); Eosinophils Percent Auto 2.7 % (0-4.4); Hematocrit 34.6 % (37.0-47.0); Hemoglobin 11.7 g/dL (12.0-15.0); Immature Granulocyte Absolute 0.02 K/mm3 (0.00-0.031); Immature Granulocyte Percent A 0.3 % (0-0.5); Lymphocytes Absolute Auto 1.16 K/mm3 (0.9-3.2); Lymphocytes Percent Auto 16.2 % (18.3-44.2); Mean Corpuscular HGB Conc 33.8 g/dl (32-36); Mean Corpuscular Hemoglobin 31.9 pg (26-34); Mean Corpuscular Volume 94.3 fl (80-100); Mean Platelet Volume 10.1 fl (7.4-10.4); Monocytes Absolute Auto 0.5 K/mm3 (0.1-0.6); Monocytes Percent Auto 6.7 % (2.6-8.5); Neutrophils Absolute Auto 5.3 K/mm3 (1.3-6.7); Neutrophils Percent Auto 73.5 % (45.5-73.1); Platelet Count Result 188 k/mm3 (150-375); Red Blood Count 3.67 M/mm3 (4.2-5.4); Red Cell Distribution Width 13.8 % (11.5-14.5); White Blood Count 7.2 K/mm3 (4.5-10.0)
[2021-07-07 17:02] LABS: INR 1.2; Prothrombin Time 15.2 Seconds (11.1-14.7)
[2021-07-07 17:05] LABS: Alanine Aminotransferase 60 U/L (4-35); Albumin Level 4.2 g/dL (3.5-5.1); Alkaline Phosphatase 83 U/L (38-126); Anion Gap 11 mmol/L (8-16); Aspartate Amino Transferase 47 U/L (14-36); Bilirubin,Total 0.5 mg/dL (0.2-1.3); Blood Urea Nitrogen 22 mg/dL (7-17); Calcium 9.6 mg/dL (8.4-10.2); Carbon Dioxide 27 mmol/L (22-30); Chloride 100 mmol/L (98-107); Estimated CRCL calculation 30 ml/min; Estimated Glomerular Filt Rate 60; Glucose 202 mg/dL (65-110); Potassium 3.1 mmol/L (3.4-5.0); Sodium 138 mmol/L (137-145)
--- NOTE | 2021-07-07 18:32 | ED.GIBLEED ---
HPI - GI Bleed General Chief complaint: GI Bleed Stated complaint: rectal bleeding Time Seen by Provider: 07/07/21 16:14 Source: patient Mode of arrival: ambulatory Limitations: no limitations History of Present Illness HPI Narrative: 85-year-old with a history of hypertension, diabetes, rectal bleeding, A. fib on Xarelto here with complaints of rectal bleeding for last 2 to 3 days. Patient states since this morning she had several bouts of bleeding with few clots. She denies any fever or chills. No history of nausea or vomiting. Complains of lower abdominal pain as well. MD complaint: gross hematochezia Onset (ago): day(s) (3) Pain Consistency: constant Severity: moderate Relieving factors: none Exacerbating factors: none Context: history of GI bleed Associated symptoms: denies other symptoms Related Data Home Medications Medication Instructions Recorded Confirmed Ozempic 0.5 mg SUBCUT WEEKLY 10/21/20 07/04/21 levothyroxine 112 mcg PO DAILY 10/21/20 07/04/21 pravastatin 20 mg tablet 10 mg PO HS 04/12/21 07/04/21 carvedilol [Coreg] 3.125 mg PO Q12H 04/15/21 07/04/21 furosemide 20 mg PO DAILY 04/15/21 07/04/21 potassium chloride 10 meq PO DAILY 04/15/21 07/04/21 Xarelto 15 mg PO QPM 04/29/21 07/04/21 mesalamine 2.4 g PO DAILY 04/29/21 07/04/21 aspirin 81 mg tablet,delayed 81 mg PO DAILY 05/10/21 07/04/21 release spironolactone 25 mg PO DAILY 07/04/21 07/04/21 duloxetine 20 mg PO 07/07/21 sulfamethoxazole-trimethoprim tablet 07/07/21 Allergies Allergy/AdvReac Type Severity Reaction Status Date / Time adhesive tape Allergy Severe BLISTERS Verified 07/04/21 10:00 amiodarone Allergy Severe N/V, Verified 07/04/21 10:00 HEADACHE, HOSPITALIZED atorvastatin Allergy Severe SWELLING Verified 07/04/21 10:00 clindamycin Allergy Severe TACHYCARDIA Verified 07/04/21 10:00 gabapentin Allergy Severe CHF Verified 07/04/21 10:00 gemfibrozil Allergy Severe ELEVATED Verified 07/04/21 10:00 CHOLESTEROL nifedipine Allergy Severe SWELLING Verified 07/04/21 10:00 norfloxacin Allergy Severe SWELLING Verified 07/04/21 10:00 rofecoxib Allergy Severe UPSET Verified 07/04/21 10:00 STOMACH, CAN TAKE WITH MEALS adhesive Allergy Intermediate Unknown Verified 07/04/21 10:00 chlorpheniramine [Ornade] Allergy Intermediate Unknown Verified 07/04/21 10:00 doxycycline Allergy Intermediate Unknown Verified 07/04/21 10:00 erythromycin base Allergy Intermediate Unknown Verified 07/04/21 10:00 flurbiprofen [Ansaid] Allergy Intermediate Unknown Verified 07/04/21 10:00 tetracycline Allergy Intermediate Unconscious Verified 07/04/21 10:00 tramadol [Ultram] Allergy Intermediate Unknown Verified 07/04/21 10:00 cephalexin Allergy Mild Rash Verified 07/04/21 10:00 ciprofloxacin Allergy Unknown Unknown Verified 07/04/21 10:00 diclofenac Allergy Unknown Unknown Verified 07/04/21 10:00 hydroxyzine Allergy Unknown Unknown Verified 07/04/21 10:00 Penicillins Allergy Unknown Unknown Verified 07/04/21 10:00 propoxyphene Allergy Unknown Unknown Verified 07/04/21 10:00 terfenadine Allergy Unknown Unknown Verified 07/04/21 10:00 butorphanol AdvReac Severe RESTLESSNES Verified 07/04/21 10:00 S cerivastatin AdvReac Severe ABDOMINAL Verified 07/04/21 10:00 PAIN, H/A dexamethasone AdvReac Severe IRRITATED Verified 07/04/21 10:00 EYES duloxetine AdvReac Severe H/A Verified 07/04/21 10:00 enalaprilat AdvReac Severe COUGH Verified 07/04/21 10:00 guaifenesin AdvReac Severe NERVOUSNESS Verified 07/04/21 10:00 hydrocodone AdvReac Severe N/V Verified 07/04/21 10:00 isosorbide AdvReac Severe H/A Verified 07/04/21 10:00 levofloxacin AdvReac Severe VOMITING Verified 07/04/21 10:00 meperidine AdvReac Severe H/A Verified 07/04/21 10:00 nitroglycerin AdvReac Severe VOMITING Verified 07/04/21 10:00 oxycodone AdvReac Severe VOMITING Verified 07/04/21 10:00 phenylephrine AdvReac Severe NERVOUSNESS Verified 07/04/21 10:00 phenylpropanolamine AdvReac Severe NE
[2021-07-07] MEDS: ERTAPENEM 1 GM/NS 50 ML 1 GM/50 ML BAG IVPB (18:51)
--- NOTE | 2021-07-07 19:58 | PM.IMHP ---
H&P: HPI History of Present Illness Date/Time: 07/07/21 19:58 Chief Complaint: Rectal bleed Narrative: This is an 85-year-old female with past medical history significant for atrial flutter, pacemaker insitu, as per last echo performed in October of this year patient with ejection fraction estimated at 70%, chronic anticoagulation, chronic kidney disease, coronary artery disease, type 2 diabetes mellitus, Schatzki's ring of the esophagus, dyslipidemia, TIA. Patient presented to emergency room due to having several episodes of bright red blood per rectum for the last 2 days and abdominal pain, no diarrhea, no fevers, no rigors, no chills, no hematemesis ,no nausea ,no vomiting has had rectal pain as well, no weight loss, no generalized malaise, no change in stool character. Preliminary workup was significant for a CT of abdomen and pelvis with mild nonspecific thickening of the sigmoid colon and rectum, suspicious for proctocolitis,bilateral adrenal thickening, likely hyperplasia. Patient has been admitted for further evaluation and treatment. Review of Systems Review of Systems: Bright red blood per rectum for the last 2 days abdominal pain Constitutional: Constitutional: Denies chills, Denies fatigue, Denies fever(s), Denies malaise, Denies weakness and Denies weight loss Eyes: Eyes: Denies change in vision ENT: Denies dysphagia, Denies vertigo, Denies dizziness, Denies nasal congestion, Denies nasal discharge, Denies nasal obstruction and Denies odynophagia Cardiovascular: Cardiovascular: Denies pedal edema, Denies irregular heart rhythm, Denies claudication, Denies leg edema, Denies lightheadedness, Denies radiating jaw, neck or arm pain, Denies palpitations, Denies dyspnea on exertion and Denies orthopnea Respiratory: Respiratory: Denies cough and Denies dyspnea Gastrointestinal: Gastrointestinal: Reports abdominal pain, Denies melena, Denies coffee ground emesis, Denies dyspepsia, Denies heartburn, Denies nausea and Denies vomiting Comments: No hematemesis Genitourinary: Genitourinary: Denies dysuria Musculoskeletal: Musculoskeletal: Denies arthralgias, Denies joint swelling and Denies muscle weakness Integumentary/Breasts: Skin/Breast: Denies lesions and Denies rash Neurologic: Denies syncope, Denies focal weakness and Denies Sensory deficit (Neuro) Psychiatric: Psychiatric: Reports as per HPI Endocrine: Endocrine: Reports as per HPI Hematologic/Lymphatic: Hematologic/Lymphatic: Reports as per HPI Allergic/Immunologic: Allergic/Immunologic: Reports as per HPI [facility] Past Medical History Medical History Cardiomegaly Chronic anemia Chronic anticoagulation 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trial flutter. CKD (chronic kidney disease) stage 3, GFR 30-59 ml/min Closed head injury Congestive heart failure Contusion of right shoulder Coronary artery disease Diabetes type 2, controlled Diarrhea Dysphagia Fall (~07/22/19) History of esophageal dilatation History of pacemaker History of TIA (transient ischemic attack) and stroke Hyperlipidemia associated with type 2 diabetes mellitus Hypertension Hypertension associated with stage 3 chronic kidney disease due to type 2 diabetes mellitus Hyponatremia Hypothyroidism Paroxysmal atrial flutter Peripheral sensory neuropathy due to type 2 diabetes mellitus Rectal bleeding Schatzki's ring of distal esophagus Trigger finger, right middle finger Surgical History Surgical History History of appendectomy History of arthroplasty of right knee History of cholecystectomy History of colonoscopy with polypectomy Last colonoscopy in 01/2020 with descending colon polyp biopsied and showing ulcerated tubulovillous adenoma with high-grade dysplasia. History of mitral valve repair 4 vessel CABG and Mitral Valve Repair at [facility] in 1995.
--- NOTE | 2021-07-07 20:27 | PC.NURSE ---
This patient, Dinorah Thorpe, was admitted to [facility] Surg Room 321-01 @2024. Patient/family oriented to hospital policies and general routines including ID bracelet, bed and alarms, visiting hours, pain management, procedures, bathroom and other care routines, personal items, smoking policy, room service/diet, and visiting hours. Information on how to activate the Rapid Response Team has been discussed. Patient/Family are encouraged to report perceived risks to care and to ask questions if they do not understand what they are told or what they should do.
[2021-07-08] MEDS: SODIUM CHLORIDE 0.9% IV 1,000 ML 65 ML IV CONT ×2 (02:10→09:28)
[2021-07-08] MEDS: LEVOTHYROXINE SODIUM 112 MCG TABLET PO (05:57)
[2021-07-08 06:00] VITALS: BP 160/55; PULSE 67; RESP 16; TEMP 35.8; O2SAT 100
[2021-07-08 06:16] LABS: Basophils Percent Auto 0.5 % (0.2-1.2); Eosinophils Absolute Auto 0.2 K/mm3 (0-0.3); Eosinophils Percent Auto 3.7 % (0-4.4); Hematocrit 32.6 % (37.0-47.0); Hemoglobin 10.8 g/dL (12.0-15.0); Immature Granulocyte Absolute 0.03 K/mm3 (0.00-0.031); Immature Granulocyte Percent A 0.5 % (0-0.5); Lymphocytes Percent Auto 15.3 % (18.3-44.2); Mean Corpuscular HGB Conc 33.1 g/dl (32-36); Mean Corpuscular Volume 93.7 fl (80-100); Mean Platelet Volume 9.9 fl (7.4-10.4); Monocytes Absolute Auto 0.5 K/mm3 (0.1-0.6); Monocytes Percent Auto 6.9 % (2.6-8.5); Neutrophils Absolute Auto 4.8 K/mm3 (1.3-6.7); Neutrophils Percent Auto 73.1 % (45.5-73.1); Platelet Count Result 155 k/mm3 (150-375); Red Blood Count 3.48 M/mm3 (4.2-5.4); White Blood Count 6.5 K/mm3 (4.5-10.0)
--- NOTE | 2021-07-08 06:41 | PC.NURSE ---
Per patient request changed code status to DNR. She states she has no paperwork but does not want CPR or Intubation if unresponsive.
[2021-07-08 06:59] LABS: Anion Gap 6 mmol/L (8-16); Blood Urea Nitrogen 14 mg/dL (7-17); Calcium 8.7 mg/dL (8.4-10.2); Carbon Dioxide 25 mmol/L (22-30); Chloride 107 mmol/L (98-107); Estimated CRCL calculation 45 ml/min; Estimated Glomerular Filt Rate > 60; Glucose 96 mg/dL (65-110); Potassium 3.5 mmol/L (3.4-5.0); Sodium 138 mmol/L (137-145)
--- NOTE | 2021-07-08 07:15 | WPDGICN ---
Assessment and Plan Assessment and plan (1) Blood in stool: Code(s): K92.1 - Melena Status: Acute (2) Sigmoiditis: Code(s): K52.9 - Noninfective gastroenteritis and colitis, unspecified Status: Acute Assessment and Plan: Patient identified as having nonspecific sigmoiditis by colonoscopy in April. CT scan performed last night suggest proctosigmoiditis. Suspect this is the most likely etiology for her current bleeding. Plan to hold anticoagulation. Stool cultures will be repeated. We will maximize the dose of her mesalamine and increased to4.8g p.o. daily. (3) Chronic anticoagulation: Code(s): Z79.01 - halfway (current) use of anticoagulants Status: Acute Assessment and Plan: Anticoagulation undoubtedly contributes to her recent bleeding. She has had a slight decline in hemoglobin. Plan to hold anticoagulation until we are certain is safe to resume. Perhaps for at least several weeks. (4) Pacemaker: Code(s): Z95.0 - Presence of cardiac pacemaker Status: Acute (5) Paroxysmal atrial flutter: Code(s): I48.92 - Unspecified atrial flutter Status: Chronic (6) Acute UTI: Code(s): N39.0 - Urinary tract infection, site not specified Status: Acute Assessment and Plan: Patient recently found to have UTI. This may contribute to some of her suprapubic pain. Follow-up urinalysis after complete course of antibiotics suggested. (7) History of colon polyps: Code(s): Z86.010 - Personal history of colonic polyps Status: Acute Assessment and Plan: Tubulovillous adenomatous polyp removed from the colon 2019. It did have dysplasia. No evidence of recurrent polyp at the time of endoscopy 2 months ago. GI Consult Note Consult date/time: 07/08/21 07:15 HPI: Dinorah Thorpe is a 85 year old female Well known to my service. Patient admitted the hospital with rectal bleeding. Patient has a history of atrial fib flutter with chronic anticoagulation, chronic kidney disease, coronary artery disease, history of pacemaker. Known to my service in 2019 underwent colonoscopy with removal of adenomatous polyp with dysplasia. She develops diarrhea and some rectal bleeding prompting colonoscopy in April of this year. At that time she had mild nonspecific sigmoid colitis. The biopsies were very non specific , patient was placed on Lialda 2.4g p.o. daily. She did well until earlier this week when she developed suprapubic pain was found to have a urinary tract infection and seen at [facility]. Over the last 2-3 days has had bright red blood admixed with her stools. For this reason presented to her family doctor in to [facility] ER again yesterday. Subsequently transferred to our emergency room and admitted to the hospital. Patient has remained on Xarelto during this period of time. In the emergency room a CT scan revealed possible mild thickening of the rectosigmoid area. Review of Systems Review of Systems: All systems reviewed & are unremarkable except as noted in HPI and below PMFSH Past Medical History Medical History Cardiomegaly Chronic anemia Chronic anticoagulation 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trial flutter. CKD (chronic kidney disease) stage 3, GFR 30-59 ml/min Closed head injury Congestive heart failure Contusion of right shoulder Coronary artery disease Diabetes type 2, controlled Diarrhea Dysphagia Fall (~07/22/19) History of esophageal dilatation History of pacemaker History of TIA (transient ischemic attack) and stroke Hyperlipidemia associated with type 2 diabetes mellitus Hypertension Hypertension associated with stage 3 chronic kidney disease due to type 2 diabetes mellitus Hyponatremia Hypothyroidism Paroxysmal atrial flutter Peripheral sensory neuropathy due to type 2 diabetes mellitus
[2021-07-08 08:00] VITALS: PULSE 67; RESP 16; O2SAT 100
[2021-07-08 08:00] LABS: Glucose Point of Care 93 mg/dl (65-105)
[2021-07-08] MEDS: LOSARTAN POTASSIUM 50 MG TABLET PO (08:54)
[2021-07-08] MEDS: MULTIVITAMINS THERAPEUTIC TAB (*BKC) 1 TABLET PO (08:54)
[2021-07-08] MEDS: MESALAMINE 400 MG DELAYED RELEASE CAPSULE 800 MG PO ×3 (09:29→16:33)
[2021-07-08 11:04] VITALS: BMI 17.7
[2021-07-08 11:50] LABS: Glucose Point of Care 104 mg/dl (65-105)
--- NOTE | 2021-07-08 12:43 | PM.IMPN ---
Progress Note: A&P Assessment and Plan (1) Hemorrhagic proctocolitis: Code(s): K52.9 - Noninfective gastroenteritis and colitis, unspecified Status: Acute (2) GERD (gastroesophageal reflux disease): Qualifiers: Esophagitis presence: without esophagitis Qualified Code(s): K21.9 - Gastro-esophageal reflux disease without esophagitis Code(s): K21.9 - Gastro-esophageal reflux disease without esophagitis Status: Acute Assessment and Plan: PPI as needed (3) Hypertension associated with stage 3 chronic kidney disease due to type 2 diabetes mellitus: Code(s): E11.22 - Type 2 diabetes mellitus with diabetic chronic kidney disease; I12.9 - Hypertensive chronic kidney disease with stage 1 through stage 4 chronic kidney disease, or unspecified chronic kidney disease; N18.3 - Chronic kidney disease, stage 3 (moderate) Status: Chronic Assessment and Plan: Continue losartan Continue to monitor (4) CAD (coronary artery disease), autologous vein bypass graft: Code(s): I25.810 - Atherosclerosis of coronary artery bypass graft(s) without angina pectoris Status: Acute Assessment and Plan: Stable Continue carvedilol Continue statin Holding aspirin (5) Chronic anticoagulation: Code(s): Z79.01 - alf (current) use of anticoagulants Status: Acute Assessment and Plan: Holding Xarelto Holding aspirin (6) Coronary artery disease: Qualifiers: Associated angina: without angina Coronary Disease-Associated Artery/Lesion type: unspecified vessel or lesion type [place] vs. transplanted heart: unspecified whether [place] or transplanted heart Qualified Code(s): I25.10 - Atherosclerotic heart disease of [place] coronary artery without angina pectoris Code(s): I25.10 - Atherosclerotic heart disease of [place] coronary artery without angina pectoris Status: Chronic (7) Congestive heart failure: Qualifiers: Heart failure chronicity: chronic Heart failure type: unspecified Qualified Code(s): I50.9 - Heart failure, unspecified Code(s): I50.9 - Heart failure, unspecified Status: Chronic Assessment and Plan: As per echocardiogram performed earlier in the year ejection fraction of 70% Holding Lasix Holding spironolactone (8) A-fib: Code(s): I48.91 - Unspecified atrial fibrillation Status: Chronic Assessment and Plan: Rate controlled Holding anticoagulation (9) Peripheral sensory neuropathy due to type 2 diabetes mellitus: Code(s): E11.42 - Type 2 diabetes mellitus with diabetic polyneuropathy Status: Chronic Assessment and Plan: Continue duloxetine (10) CKD (chronic kidney disease) stage 3, GFR 30-59 ml/min: Code(s): N18.3 - Chronic kidney disease, stage 3 (moderate) Status: Chronic Assessment and Plan: Continue to monitor (11) Diabetes mellitus: Code(s): E11.9 - Type 2 diabetes mellitus without complications Status: Acute Assessment and Plan: Holding Ozempic Insulin sliding scale as needed Patient is currently on Clear liquid diet Additional Plan Hemorrhagic proctocolitis: having BRBPR and proctocolitis seen on CT, although hemodynamically stable. GI seeing patient, recommend to hold anticoagulation, blood thinners, obtain stool cultures. Mesalamine inc to 800mg daily. Hgb dipped a little from yesterday to today, 11.7 to 10.8. Plan to hold anticoagulation for a while - potentially several weeks. will discuss risks with her of this and that there are risks with and without blood thinners. H/x uti: may be contributing to suprapubic pain; obtain ua & uc, abx as necessary Time Spent With Patient Time with patient: less than 15 minutes Subjective Date/time seen: 07/08/21 12:43 resting comfortably in bed Review of Systems Review of Systems: All systems reviewed & are unremarkable except as noted in HPI and below Exam
--- NOTE | 2021-07-08 13:37 | PCDIET ---
Notified by dietary that patient upset Ensure Clear contains milk ingredients and Lactaid is at home . Returned to patient's room and discussed again that Ensure Clear is 100% lactose free but does contain milk proteins. Patient reports unable to tolerate anything containing milk. SALVADOR Christopher informed and will add milk to patient allergies. Patient agreeable.
[2021-07-08 14:00] VITALS: BP 159/48; PULSE 72; RESP 18; TEMP 36.3; O2SAT 100
[2021-07-08 17:55] LABS: Add Urine Microscopic? YES; Appearance Urine Clear (Clear); Bacteria Urine Trace /hpf; Bilirubin Urine Negative (Negative); Blood Urine Negative (Negative); Color Urine Yellow (Yellow); Glucose Urine UA 1+ mg/dL (Negative); Ketones Urine Negative (Negative); Leukocyte Esterase Ur Negative LEU/UL (NEGATIVE); Nitrate Urine Negative (Negative); Protein Urine Negative (Negative); RBC Urine 0-2 /hpf (0-2); Specific Grav Ur 1.016 (1.001-1.035); Squamous Epithelial Cell Urine Rare /hpf (Few); Urobilinogen Urine Negative mg/dL (<2.0); WBC Urine 0-3 /hpf (0-3)
[2021-07-08 19:04] LABS: Cortisol Random 9.29 ug/dL
[2021-07-08 20:17] VITALS: PULSE 68
[2021-07-08] MEDS: DULoxetine HCL 20 MG CAPSULE.DR PO (20:17)
[2021-07-08] MEDS: PRAVASTATIN SODIUM 10 MG TABLET PO (20:17)
[2021-07-08] MEDS: carvediloL 3.125 MG TABLET PO (20:17)
[2021-07-08 22:00] VITALS: BP 147/48; PULSE 68; RESP 18; TEMP 35.8; O2SAT 98
[2021-07-08] MEDS: ACETAMINOPHEN 325 MG TABLET 650 MG PO (23:19)
[2021-07-09] MEDS: SODIUM CHLORIDE 0.9% IV 1,000 ML 65 ML IV CONT ×2 (01:13→16:53)
[2021-07-09] MEDS: LEVOTHYROXINE SODIUM 112 MCG TABLET PO (05:26)
[2021-07-09 06:00] VITALS: BP 147/62; PULSE 69; RESP 18; TEMP 35.9; O2SAT 100
[2021-07-09 06:29] LABS: Basophils Percent Auto 0.5 % (0.2-1.2); Eosinophils Absolute Auto 0.3 K/mm3 (0-0.3); Eosinophils Percent Auto 4.6 % (0-4.4); Hematocrit 30.1 % (37.0-47.0); Immature Granulocyte Absolute 0.01 K/mm3 (0.00-0.031); Immature Granulocyte Percent A 0.2 % (0-0.5); Lymphocytes Absolute Auto 1.02 K/mm3 (0.9-3.2); Lymphocytes Percent Auto 18.2 % (18.3-44.2); Mean Corpuscular HGB Conc 33.2 g/dl (32-36); Mean Corpuscular Hemoglobin 31.1 pg (26-34); Mean Corpuscular Volume 93.5 fl (80-100); Mean Platelet Volume 10.1 fl (7.4-10.4); Monocytes Absolute Auto 0.5 K/mm3 (0.1-0.6); Neutrophils Absolute Auto 3.8 K/mm3 (1.3-6.7); Neutrophils Percent Auto 68.5 % (45.5-73.1); Platelet Count Result 136 k/mm3 (150-375); Red Blood Count 3.22 M/mm3 (4.2-5.4); Red Cell Distribution Width 13.8 % (11.5-14.5); White Blood Count 5.6 K/mm3 (4.5-10.0)
[2021-07-09 07:01] LABS: Alanine Aminotransferase 33 U/L (4-35); Albumin Level 2.8 g/dL (3.5-5.1); Alkaline Phosphatase 65 U/L (38-126); Anion Gap 6 mmol/L (8-16); Aspartate Amino Transferase 24 U/L (14-36); Bilirubin,Total 0.5 mg/dL (0.2-1.3); Blood Urea Nitrogen 8 mg/dL (7-17); Calcium 8.5 mg/dL (8.4-10.2); Carbon Dioxide 23 mmol/L (22-30); Chloride 107 mmol/L (98-107); Estimated CRCL calculation 45 ml/min; Estimated Glomerular Filt Rate > 60; Glucose 93 mg/dL (65-110); Magnesium 1.6 mg/dL (1.6-2.3); Phosphorus 2.8 mg/dL (2.5-4.5); Potassium 3.1 mmol/L (3.4-5.0); Sodium 136 mmol/L (137-145)
--- NOTE | 2021-07-09 07:24 | WPDGIPROGNO ---
Progress Note: A&P Assessment and Plan (1) Acute UTI: Code(s): N39.0 - Urinary tract infection, site not specified Status: Acute Assessment and Plan: Patient with urinary tract infection. Now on antibiotics this appears to account for suprapubic pain. (2) Sigmoiditis: Code(s): K52.9 - Noninfective gastroenteritis and colitis, unspecified Status: Acute Assessment and Plan: Sigmoiditis identified by colonoscopy 2 months ago. Some question of residual swelling on recent CT scan. Plan to treat with higher dose mesalamine at present. Repeat stool cultures are negative to date. This potentially contributes to her diarrhea and blood in stools. This can be followed as an outpatient. (3) Blood in stool: Code(s): K92.1 - Melena Status: Acute Assessment and Plan: Blood in stool noted prior to admission is not been evidence that since admission in the hospital. Likely related anticoagulation. Potentially related to her sigmoiditis. Would recommend holding anticoagulation until we are certain this is been treated. This may require several weeks of holding anticoagulation. (4) History of colon polyps: Code(s): Z86.010 - Personal history of colonic polyps Status: Acute Assessment and Plan: Patient has a history of colon polyps most recently 2019. Typically this would be followed up with colonoscopy every 5 years. Given her advanced age would defer this pending how her health is at that time. (5) Paroxysmal atrial flutter: Code(s): I48.92 - Unspecified atrial flutter Status: Chronic (6) Chronic anticoagulation: Code(s): Z79.01 - jail (current) use of anticoagulants Status: Acute Assessment and Plan: Anticoagulation given because of atrial irregularity. Hold this because of bleeding. Likely will need to be held for several weeks. Subjective Date/time seen: 07/09/21 07:24 Patient reports that her suprapubic abdominal pain is improved with treatment for her UTI. She reports no recent bowel movements. No additional bleeding reported. She only gets out of bed to use the bedside commode. Review of Systems Review of Systems: All systems reviewed & are unremarkable except as noted in HPI and below Exam Narrative: Physical exam reveals patient be alert comfortable at rest. HEENT exam unremarkable. Patient anicteric. Lungs are clear. Heart without murmur. Abdomen bowel sounds present soft only minimal suprapubic discomfort at this time. Objective Data Vital Signs Vital Signs: Vital Signs - 24 hr 07/08/21 08:00 07/08/21 14:00 07/08/21 20:17 Temperature 97.3 F L Pulse Rate 67 72 68 Respiratory Rate 16 18 Blood Pressure 159/48 H Pulse Oximetry 100 100 07/08/21 22:00 07/09/21 06:00 Temperature 96.5 F L 96.6 F L Pulse Rate 68 69 Respiratory Rate 18 18 Blood Pressure 147/48 H 147/62 H Pulse Oximetry 98 100 Intake/Output Intake/Output: Intake & Output 07/06/21 07/07/21 07/08/21 07/09/21 23:59 23:59 23:59 23:59 Intake Total 50 2270 1400 Output Total 1200 600 Balance 50 1070 800 Meds/Results Medications: Active Medications Generic Name Dose Route Start Last Admin Trade Name Freq PRN Reason Stop Dose Admin Acetaminophen 650 mg 07/08/21 23:07 07/08/21 23:19 Acetaminophen 325 Mg Tablet PO 650 mg Q6H PRN Administration Mild Pain (1-3) or Fever Carvedilol 3.125 mg 07/08/21 21:00 07/08/21 20:17 Carvedilol 3.125 Mg Tablet PO 3.125 mg Q12HR ARTHUR Administration Duloxetine HCl 20 mg 07/08/21 21:00 07/08/21 20:17 Duloxetine Hcl 20 Mg Capsule.Dr PO 20 mg HS ARTHUR Administration Sodium Chloride 1,000 mls @ 65 mls/hr 07/07/21 18:50 07/09/21 01:13 Normal Saline Iv IV CONT 65 mls/hr .[id number] ARTHUR Administration Levothyroxine Sodium 112 mcg 07/08/21 06:30 07/09/21 05:26 Levothyroxine Sodium 112 Mcg Tablet PO 08/07/21 06:29 112 mcg
[2021-07-09] MEDS: MESALAMINE 400 MG DELAYED RELEASE CAPSULE 800 MG PO ×3 (08:21→16:54)
[2021-07-09 08:22] VITALS: PULSE 66
[2021-07-09] MEDS: MULTIVITAMINS THERAPEUTIC TAB (*BKC) 1 TABLET PO (08:22)
[2021-07-09] MEDS: LOSARTAN POTASSIUM 50 MG TABLET PO (08:22)
[2021-07-09] MEDS: carvediloL 3.125 MG TABLET PO ×2 (08:22→21:25)
--- NOTE | 2021-07-09 08:43 | PM.IMPN ---
Progress Note: A&P Assessment and Plan (1) Hemorrhagic proctocolitis: Code(s): K52.9 - Noninfective gastroenteritis and colitis, unspecified Status: Acute (2) GERD (gastroesophageal reflux disease): Qualifiers: Esophagitis presence: without esophagitis Qualified Code(s): K21.9 - Gastro-esophageal reflux disease without esophagitis Code(s): K21.9 - Gastro-esophageal reflux disease without esophagitis Status: Acute Assessment and Plan: PPI as needed (3) Hypertension associated with stage 3 chronic kidney disease due to type 2 diabetes mellitus: Code(s): E11.22 - Type 2 diabetes mellitus with diabetic chronic kidney disease; I12.9 - Hypertensive chronic kidney disease with stage 1 through stage 4 chronic kidney disease, or unspecified chronic kidney disease; N18.3 - Chronic kidney disease, stage 3 (moderate) Status: Chronic Assessment and Plan: Continue losartan Continue to monitor (4) CAD (coronary artery disease), autologous vein bypass graft: Code(s): I25.810 - Atherosclerosis of coronary artery bypass graft(s) without angina pectoris Status: Acute Assessment and Plan: Stable Continue carvedilol Continue statin Holding aspirin (5) Chronic anticoagulation: Code(s): Z79.01 - [facility] (current) use of anticoagulants Status: Acute Assessment and Plan: Holding Xarelto Holding aspirin (6) Coronary artery disease: Qualifiers: Associated angina: without angina Coronary Disease-Associated Artery/Lesion type: unspecified vessel or lesion type [place] vs. transplanted heart: unspecified whether [place] or transplanted heart Qualified Code(s): I25.10 - Atherosclerotic heart disease of [place] coronary artery without angina pectoris Code(s): I25.10 - Atherosclerotic heart disease of [place] coronary artery without angina pectoris Status: Chronic (7) Congestive heart failure: Qualifiers: Heart failure chronicity: chronic Heart failure type: unspecified Qualified Code(s): I50.9 - Heart failure, unspecified Code(s): I50.9 - Heart failure, unspecified Status: Chronic Assessment and Plan: As per echocardiogram performed earlier in the year ejection fraction of 70% Holding Lasix Holding spironolactone (8) A-fib: Code(s): I48.91 - Unspecified atrial fibrillation Status: Chronic Assessment and Plan: Rate controlled Holding anticoagulation (9) Peripheral sensory neuropathy due to type 2 diabetes mellitus: Code(s): E11.42 - Type 2 diabetes mellitus with diabetic polyneuropathy Status: Chronic Assessment and Plan: Continue duloxetine (10) CKD (chronic kidney disease) stage 3, GFR 30-59 ml/min: Code(s): N18.3 - Chronic kidney disease, stage 3 (moderate) Status: Chronic Assessment and Plan: Continue to monitor (11) Diabetes mellitus: Code(s): E11.9 - Type 2 diabetes mellitus without complications Status: Acute Assessment and Plan: Holding Ozempic Insulin sliding scale as needed Patient is currently on Clear liquid diet Additional Plan Sigmoiditis: melanotic stool, sigmoiditis seen on ocolonoscopy 2 months ago, residual swelling on CT scan. GI seeing patient, recommend to hold anticoagulation, blood thinners, obtain stool cultures. Mesalamine inc to 800mg daily. Hgb dipping a little, likely know where this is coming from. Plan to hold anticoagulation for a while - potentially several weeks. will discuss risks with her of this and that there are risks with and without blood thinners. Adrenal Hyperplasia: Not seen on Oct CT abdomen - obtained cortisol which is normal; Also obtained aldosterone which is pending. also obtaining ACTH as pituitary hypersecretion may cause this. May be incidental finding, but would like to follow some labs here and then maybe outpatient endo followup? Pt having some diarrhea, and disco
--- NOTE | 2021-07-09 10:15 | WPDCDIQUERY2 ---
CDI Query Clarification Request -UTI documented by GI. -Pt was on Bactrim prior to arrival. Pt not on antibiotics currently. -07/08 urine culture pending Please clarify if UTI has been ruled in or ruled out.
[2021-07-09 14:19] VITALS: O2SAT 96
[2021-07-09 14:45] VITALS: BP 164/69; PULSE 69; RESP 16; TEMP 37; O2SAT 98
[2021-07-09 19:01] LABS: IFOB Positive Control Positive; Immunochemical Fecal Occult Bl Negative (N)
[2021-07-09 21:25] VITALS: PULSE 66
[2021-07-09] MEDS: DULoxetine HCL 20 MG CAPSULE.DR PO (21:26)
[2021-07-09] MEDS: PRAVASTATIN SODIUM 10 MG TABLET PO (21:26)
[2021-07-09] MEDS: ACETAMINOPHEN 325 MG TABLET 650 MG PO (21:28)
[2021-07-09 22:00] VITALS: BP 153/65; PULSE 65; RESP 18; TEMP 36.9; O2SAT 96
[2021-07-10 06:00] VITALS: BP 151/68; PULSE 66; RESP 18; TEMP 36.3; O2SAT 96
[2021-07-10] MEDS: LEVOTHYROXINE SODIUM 112 MCG TABLET PO (06:05)
[2021-07-10] MEDS: SODIUM CHLORIDE 0.9% IV 1,000 ML 65 ML IV CONT (06:08)
[2021-07-10 06:37] LABS: Basophils Percent Auto 0.5 % (0.2-1.2); Eosinophils Absolute Auto 0.2 K/mm3 (0-0.3); Eosinophils Percent Auto 3.3 % (0-4.4); Hematocrit 30.9 % (37.0-47.0); Hemoglobin 10.7 g/dL (12.0-15.0); Immature Granulocyte Absolute 0.01 K/mm3 (0.00-0.031); Immature Granulocyte Percent A 0.2 % (0-0.5); Lymphocytes Absolute Auto 0.97 K/mm3 (0.9-3.2); Mean Corpuscular HGB Conc 34.6 g/dl (32-36); Mean Corpuscular Hemoglobin 31.8 pg (26-34); Mean Corpuscular Volume 91.7 fl (80-100); Monocytes Absolute Auto 0.5 K/mm3 (0.1-0.6); Monocytes Percent Auto 7.6 % (2.6-8.5); Neutrophils Absolute Auto 4.4 K/mm3 (1.3-6.7); Neutrophils Percent Auto 72.4 % (45.5-73.1); Platelet Count Result 143 k/mm3 (150-375); Red Blood Count 3.37 M/mm3 (4.2-5.4); Red Cell Distribution Width 13.6 % (11.5-14.5); White Blood Count 6.1 K/mm3 (4.5-10.0)
[2021-07-10 07:07] LABS: Alanine Aminotransferase 30 U/L (4-35); Albumin Level 3.1 g/dL (3.5-5.1); Alkaline Phosphatase 69 U/L (38-126); Anion Gap 4 mmol/L (8-16); Aspartate Amino Transferase 22 U/L (14-36); Bilirubin,Total 0.4 mg/dL (0.2-1.3); Blood Urea Nitrogen 10 mg/dL (7-17); Calcium 8.8 mg/dL (8.4-10.2); Carbon Dioxide 26 mmol/L (22-30); Chloride 106 mmol/L (98-107); Estimated CRCL calculation 44 ml/min; Estimated Glomerular Filt Rate > 60; Glucose 100 mg/dL (65-110); Magnesium 1.6 mg/dL (1.6-2.3); Phosphorus 2.9 mg/dL (2.5-4.5); Potassium 3.2 mmol/L (3.4-5.0); Sodium 136 mmol/L (137-145)
[2021-07-10 08:24] VITALS: PULSE 68
[2021-07-10] MEDS: MULTIVITAMINS THERAPEUTIC TAB (*BKC) 1 TABLET PO (08:24)
[2021-07-10] MEDS: LOSARTAN POTASSIUM 50 MG TABLET PO (08:24)
[2021-07-10] MEDS: MESALAMINE 400 MG DELAYED RELEASE CAPSULE 800 MG PO ×3 (08:24→16:51)
[2021-07-10] MEDS: carvediloL 3.125 MG TABLET PO (08:24)
[2021-07-10] MEDS: POTASSIUM CHLORIDE 20 MEQ PACKET (FOR LIQUID) 60 MEQ PO (10:13)
[2021-07-10 10:57] LABS: CRP 0.8 mg/dL (<1.0)
[2021-07-10 10:58] LABS: Erythrocyte Sedimentation Rate 46 mm/hr (0-20)
[2021-07-10 14:00] VITALS: BP 152/62; PULSE 66; RESP 18; TEMP 36.3; O2SAT 96
--- NOTE | 2021-07-10 14:47 | PM.DS ---
DS: Admitting Diagnosis Discharge Date 07/10/2021 Admitting Diagnosis Abdominal pain DS: Discharge Diagnosis Discharge Diagnosis (1) History of colon polyps: Code(s): Z86.010 - Personal history of colonic polyps Status: Acute (2) Sigmoiditis: Code(s): K52.9 - Noninfective gastroenteritis and colitis, unspecified Status: Acute (3) Hemorrhagic proctocolitis: Code(s): K52.9 - Noninfective gastroenteritis and colitis, unspecified Status: Acute (4) Diabetes mellitus: Code(s): E11.9 - Type 2 diabetes mellitus without complications Status: Acute (5) Blood in stool: Code(s): K92.1 - Melena Status: Acute (6) Hypertension: Code(s): I10 - Essential (primary) hypertension Status: Acute (7) Chronic anemia: Code(s): D64.9 - Anemia, unspecified Status: Acute (8) UTI (urinary tract infection): Qualifiers: Hematuria presence: without hematuria Urinary tract infection type: acute cystitis Qualified Code(s): N30.00 - Acute cystitis without hematuria Code(s): N39.0 - Urinary tract infection, site not specified Status: Resolved (9) Colitis: Code(s): K52.9 - Noninfective gastroenteritis and colitis, unspecified Status: Acute (10) Hypokalemia: Code(s): E87.6 - Hypokalemia Status: Resolved (11) Coronary artery disease: Qualifiers: Coronary Disease-Associated Artery/Lesion type: unspecified vessel or lesion type [place] vs. transplanted heart: unspecified whether [place] or transplanted heart Associated angina: without angina Qualified Code(s): I25.10 - Atherosclerotic heart disease of [place] coronary artery without angina pectoris Code(s): I25.10 - Atherosclerotic heart disease of [place] coronary artery without angina pectoris Status: Chronic (12) Paroxysmal atrial flutter: Code(s): I48.92 - Unspecified atrial flutter Status: Chronic (13) Hyponatremia: Code(s): E87.1 - Hypo-osmolality and hyponatremia Status: Chronic (14) Hyperlipidemia associated with type 2 diabetes mellitus: Code(s): E11.69 - Type 2 diabetes mellitus with other specified complication; E78.5 - Hyperlipidemia, unspecified Status: Chronic (15) Peripheral sensory neuropathy due to type 2 diabetes mellitus: Code(s): E11.42 - Type 2 diabetes mellitus with diabetic polyneuropathy Status: Chronic (16) Hypertension associated with stage 3 chronic kidney disease due to type 2 diabetes mellitus: Code(s): E11.22 - Type 2 diabetes mellitus with diabetic chronic kidney disease; I12.9 - Hypertensive chronic kidney disease with stage 1 through stage 4 chronic kidney disease, or unspecified chronic kidney disease; N18.3 - Chronic kidney disease, stage 3 (moderate) Status: Chronic (17) Pacemaker: Code(s): Z95.0 - Presence of cardiac pacemaker Status: Acute (18) CAD (coronary artery disease), autologous vein bypass graft: Code(s): I25.810 - Atherosclerosis of coronary artery bypass graft(s) without angina pectoris Status: Acute (19) Hypothyroidism: Qualifiers: Hypothyroidism type: unspecified Qualified Code(s): E03.9 - Hypothyroidism, unspecified Code(s): E03.9 - Hypothyroidism, unspecified Status: Acute (20) Chronic anticoagulation: Code(s): Z79.01 - assisted (current) use of anticoagulants Status: Acute (21) Adrenal hyperplasia: Code(s): E27.8 - Other specified disorders of adrenal gland Status: Acute DS: Summary Hospital Course Reason for hospitalization: Proctosigmoiditis Hospital Course: 86-year-old female with past medical history significant for hypertension, hyperlipidemia, coronary artery disease status post CABG, type 2 diabetes mellitus, CKD, atrial flutter status post pacemaker placement and history of TIA presented with abdominal pain and bright red blood per rect
--- NOTE | 2021-07-10 17:04 | PC.NURSE ---
this nurse was going to give pt the flu vaccination on discharge. when entering room and notifying pt, pt then refused to get the flu vaccine. pt stated she did not feel like getting it at this time.
[2021-07-14 05:20] LABS: Adrenocorticotropic Hormone 21 pg/mL (6-50)
== END 2021-07-10 17:10 | disposition home or self-care (01) ==
LOC: ANHED 18:47 → ANH3MEDSUR 07-08 02:07
PROVIDERS: Internal Medicine Gastroenterology; Admitting Provider Internal Medicine; Emergency Provider Family Medicine; PCP Internal Medicine; Visit Provider Internal Medicine
DX: K52.9 Noninfective gastroenteritis and colitis, unspecified (principal); K92.1 Melena; K21.9 Gastro-esophageal reflux disease without esophagitis; I13.0 Hypertensive heart and chronic kidney disease with heart failure and stage 1 through stage 4 chronic kidney disease, or unspecified chronic kidney disease; E11.22 Type 2 diabetes mellitus with diabetic chronic kidney disease; N18.30 Chronic kidney disease, stage 3 unspecified; I50.9 Heart failure, unspecified; D64.9 Anemia, unspecified; E11.42 Type 2 diabetes mellitus with diabetic polyneuropathy; E87.1 Hypo-osmolality and hyponatremia; E03.9 Hypothyroidism, unspecified; E27.8 Other specified disorders of adrenal gland; I48.91 Unspecified atrial fibrillation; I25.10 Atherosclerotic heart disease of native coronary artery without angina pectoris; Z79.01 Long term (current) use of anticoagulants; Z95.1 Presence of aortocoronary bypass graft; Z95.0 Presence of cardiac pacemaker; Z86.010 Personal history of colon polyps; Z79.899 Other long term (current) drug therapy
CPT/HCPCS: 36415; 74177; 80048; 80053; 81001; 82024; 82088; 82274; 82533; 82948; 83735; 84100; 84443; 85025; 85610; 85652; 86140; 86850; 86900; 86901; 87015; 87086; 87269; 87272; 87324; 89055; 96361; 96365; 97161; 97165; 99285; A9270; G0378; J1335; J7030; Q9967

== ENCOUNTER 2021-07-09 11:00 | Outpatient (RCR) | payer MEDICARE, SELFPAY | END 2021-07-20 12:55 | disposition home or self-care (01) | PROVIDERS: PCP Internal Medicine; Visit Provider Internal Medicine Cardiovascular Disease | DX: I21.4 Non-ST elevation (NSTEMI) myocardial infarction (principal) | CPT/HCPCS: 93798 ==

== ENCOUNTER 2021-07-13 10:19 | Emergency (ER) | payer MEDICARE, SELFPAY ==
[2021-07-13] VITALS (10 sets, daily range): BP systolic 119–169; BP diastolic 57–72; PULSE 66–82; RESP 14–22; TEMP 36.8; O2SAT 98–100
--- NOTE | 2021-07-13 10:48 | ED.NAVMDI ---
HPI - Nausea/Vomiting/Diarrhea General Chief complaint: Nausea/Vomiting/Diarrhea Stated complaint: DIARRHEA Time Seen by Provider: 07/13/21 10:27 Source: patient Mode of arrival: wheelchair Limitations: no limitations History of Present Illness HPI Narrative: This is an 86-year-old female that presents to the emergency department for diarrhea present over the last couple of days. Reports she was recently discharged from the hospital for inflammatory bowel disease flare and GI bleed. Dr. Myers is her dinkey mechanic. She was started on ciprofloxacin and metronidazole to be finished outpatient. Reports over the last couple of days she has had 10-12 episodes of diarrhea daily. She spoke with her primary doctor and dinkey mechanic who prompted her to be seen in the ER to evaluate for dehydration. She stopped her ciprofloxacin as she thought that this could be the culprit of her diarrhea. Does report some mild abdominal soreness. Denies fever, vomiting, hematochezia, or melena. Related Data Home Medications Medication Instructions Recorded Confirmed Ozempic 0.5 mg SUBCUT WEEKLY 10/21/20 07/07/21 levothyroxine 112 mcg PO DAILY 10/21/20 07/07/21 pravastatin 20 mg tablet 10 mg PO HS 04/12/21 07/07/21 carvedilol [Coreg] 3.125 mg PO DAILY 04/15/21 07/07/21 furosemide 20 mg PO DAILY 04/15/21 07/07/21 potassium chloride 10 meq PO DAILY 04/15/21 07/07/21 Xarelto 15 mg PO QPM 04/29/21 07/07/21 aspirin 81 mg tablet,delayed 81 mg PO DAILY 05/10/21 07/07/21 release spironolactone 25 mg PO DAILY 07/04/21 07/07/21 duloxetine 20 mg PO HS 07/07/21 07/07/21 lidocaine [Aspercreme (lidocaine 1 patch TOPICAL DAILY PRN 07/07/21 07/07/21 HCl)] losartan 50 mg PO DAILY 07/07/21 07/07/21 multivitamin 1 tablet PO DAILY 07/07/21 07/07/21 Allergies Allergy/AdvReac Type Severity Reaction Status Date / Time adhesive tape Allergy Severe BLISTERS Verified 07/13/21 10:49 amiodarone Allergy Severe N/V, Verified 07/13/21 10:49 HEADACHE, HOSPITALIZED atorvastatin Allergy Severe SWELLING Verified 07/13/21 10:49 clindamycin Allergy Severe TACHYCARDIA Verified 07/13/21 10:49 gabapentin Allergy Severe CHF Verified 07/13/21 10:49 gemfibrozil Allergy Severe ELEVATED Verified 07/13/21 10:49 CHOLESTEROL nifedipine Allergy Severe SWELLING Verified 07/13/21 10:49 norfloxacin Allergy Severe SWELLING Verified 07/13/21 10:49 rofecoxib Allergy Severe UPSET Verified 07/13/21 10:49 STOMACH, CAN TAKE WITH MEALS adhesive Allergy Intermediate Unknown Verified 07/13/21 10:49 chlorpheniramine [Ornade] Allergy Intermediate Unknown Verified 07/13/21 10:49 doxycycline Allergy Intermediate Unknown Verified 07/13/21 10:49 erythromycin base Allergy Intermediate Unknown Verified 07/13/21 10:49 flurbiprofen [Ansaid] Allergy Intermediate Unknown Verified 07/13/21 10:49 tetracycline Allergy Intermediate Unconscious Verified 07/13/21 10:49 tramadol [Ultram] Allergy Intermediate Unknown Verified 07/13/21 10:49 cephalexin Allergy Mild Rash Verified 07/13/21 10:49 ciprofloxacin Allergy Unknown Unknown Verified 07/13/21 10:49 diclofenac Allergy Unknown Unknown Verified 07/13/21 10:49 hydroxyzine Allergy Unknown Unknown Verified 07/13/21 10:49 Penicillins Allergy Unknown Unknown Verified 07/13/21 10:49 propoxyphene Allergy Unknown Unknown Verified 07/13/21 10:49 terfenadine Allergy Unknown Unknown Verified 07/13/21 10:49 butorphanol AdvReac Severe RESTLESSNES Verified 07/13/21 10:49 S cerivastatin AdvReac Severe ABDOMINAL Verified 07/13/21 10:49 PAIN, H/A dexamethasone AdvReac Severe IRRITATED Verified 07/13/21 10:49 EYES duloxetine AdvReac Severe H/A Verified 07/13/21 10:49 enalaprilat AdvReac Severe COUGH Verified 07/13/21 10:49 guaifenesin AdvReac Severe NERVOUSNESS Verified 07/13/21 10:49 hydrocodone AdvReac Severe N/V Verified 07/13/21 10:49 isosorbide AdvReac Severe H/A Verified 07/13/21 10:49 levofloxacin AdvReac Severe VOMITING Verified
[2021-07-13 11:12] LABS: Basophils Percent Auto 0.6 % (0.2-1.2); Eosinophils Absolute Auto 0.2 K/mm3 (0-0.3); Eosinophils Percent Auto 2.5 % (0-4.4); Hematocrit 33.5 % (37.0-47.0); Hemoglobin 11.4 g/dL (12.0-15.0); Immature Granulocyte Absolute 0.02 K/mm3 (0.00-0.031); Immature Granulocyte Percent A 0.3 % (0-0.5); Lymphocytes Absolute Auto 1.06 K/mm3 (0.9-3.2); Lymphocytes Percent Auto 14.6 % (18.3-44.2); Mean Corpuscular Hemoglobin 31.6 pg (26-34); Mean Corpuscular Volume 92.8 fl (80-100); Monocytes Absolute Auto 0.5 K/mm3 (0.1-0.6); Neutrophils Absolute Auto 5.4 K/mm3 (1.3-6.7); Platelet Count Result 207 k/mm3 (150-375); Red Blood Count 3.61 M/mm3 (4.2-5.4); Red Cell Distribution Width 13.7 % (11.5-14.5); White Blood Count 7.3 K/mm3 (4.5-10.0)
[2021-07-13 11:54] LABS: Alanine Aminotransferase 30 U/L (4-35); Albumin Level 3.9 g/dL (3.5-5.1); Alkaline Phosphatase 54 U/L (38-126); Anion Gap 4 mmol/L (8-16); Aspartate Amino Transferase 42 U/L (14-36); Bilirubin,Total 0.7 mg/dL (0.2-1.3); Blood Urea Nitrogen 20 mg/dL (7-17); Calcium 9.6 mg/dL (8.4-10.2); Carbon Dioxide 33 mmol/L (22-30); Chloride 98 mmol/L (98-107); Estimated CRCL calculation 47 ml/min; Estimated Glomerular Filt Rate > 60; Glucose 106 mg/dL (65-110); Lipase 37 U/L (23-300); Potassium 4.1 mmol/L (3.4-5.0); Sodium 135 mmol/L (137-145)
[2021-07-13] MEDS: SODIUM CHLORIDE 0.9% IV 500 ML 999 ML IV CONT (12:07)
[2021-07-13 12:08] LABS: Add Urine Microscopic? YES; Appearance Urine Cloudy (Clear); Bilirubin Urine Negative (Negative); Blood Urine Negative (Negative); Color Urine Yellow (Yellow); Glucose Urine UA Negative (Negative); Ketones Urine Negative (Negative); Leukocyte Esterase Ur Negative LEU/UL (Negative); Mucus Urine Rare /lpf; Nitrate Urine Negative (Negative); Protein Urine Negative (Negative); RBC Urine 0-2 /hpf (0-2); Specific Grav Ur 1.011 (1.001-1.035); Urobilinogen Urine Negative mg/dL (<2.0); WBC Urine 0-3 /hpf
== END 2021-07-13 15:15 | disposition home or self-care (01) ==
PROVIDERS: Physician Assistant; Emergency Provider Emergency Medicine; PCP Internal Medicine
DX: R19.7 Diarrhea, unspecified (principal); I13.0 Hypertensive heart and chronic kidney disease with heart failure and stage 1 through stage 4 chronic kidney disease, or unspecified chronic kidney disease; E11.22 Type 2 diabetes mellitus with diabetic chronic kidney disease; N18.30 Chronic kidney disease, stage 3 unspecified; I50.9 Heart failure, unspecified; Z79.01 Long term (current) use of anticoagulants; E03.9 Hypothyroidism, unspecified; E78.5 Hyperlipidemia, unspecified; I25.10 Atherosclerotic heart disease of native coronary artery without angina pectoris
CPT/HCPCS: 36415; 51701; 80053; 81001; 83690; 85025; 87045; 87324; 87427; 89055; 96360; 99283; J7040

== ENCOUNTER 2021-09-13 10:15 | Emergency (ER) | payer MEDICARE, SELFPAY ==
--- NOTE | ~2021-09-13 | CT_ITS ---
EXAMINATION: CT diagnostic chest wo con DATE: 09/13/2021 12:53 INDICATION: SOB COUGH,GENERAL WEAKNESS TECHNIQUE: Computed tomography (CT) of the chest was performed without intravenous contrast. Addition al 3D reconstructions utilizing coronal maximum intensity projection (MIP) were performed. Automated exposure control and iterative reconstruction technique were employed. The dose-length product was 11 6.45 mGy-cm. COMPARISON: 07/22/2019 FINDINGS: Small region of groundglass opacity in the central suprahilar region of the right upper lobe. Additio nal small groundglass opacity in the left upper lobe. Small calcified nodule in the right lower lobe consistent with old granulomatous disease. Mild linear discoid atelectasis/scarring at the junction o f the lingula and left upper lobe. No suspicious pulmonary nodules, pulmonary edema, pleural effusion or pneumothorax. Cardiomegaly. Atherosclerotic coronary artery calcifications and change of prior me vanessa sternotomy and coronary artery bypass grafting. No pericardial effusion. Dual lead pacemaker see n with lead tips at the right atrial appendage and near the apex of the right ventricle. Thoracic aor ta is normal in caliber. No pathologically enlarged thoracic lymphadenopathy. Mild thoracic spondylos is with bridging osteophytes at several levels in the lower thoracic and upper lumbar spine consisten t with diffuse idiopathic skeletal hyperostosis (DISH). IMPRESSION: 1. Small region of groundglass opacity in the bilateral upper lobes which are most likely infectious or inflammatory in etiology. Consider 3 month follow-up noncontrast chest CT. 2. Cardiomegaly. Reviewed, dictated and finalized at location B. ER SHREDDER IMPRESSION: 1. Small region of groundglass opacity in the bilateral upper lobes which are m ost likely infectious or inflammatory in etiology. Consider 3 month follow-up n oncontrast chest CT. 2. Cardiomegaly.
--- NOTE | 2021-09-13 10:36 | ECG_ITS ---
Measurements Intervals [place] Rate: 62 P: 49 NV: 251 QRS: 89 QRSD: 148 T: -71 QT: 469 QTc: 479 Interpretive Statements ELECTRONIC ATRIAL PACEMAKER WITH INHIBITION ELECTRONIC VENTRICULAR PACEMAKER NO FURTHER INTERPRETATION IS POSSIBLE ATYPICAL ECG Electronically Signed On 09-13-2021 11:27:14 [employer]EARCH METHODS INSTRUCTOR by Jim Herr D.O.
[2021-09-13 10:39] VITALS: BP 158/77; PULSE 82; RESP 18; TEMP 36.5; O2SAT 98
[2021-09-13 11:12] LABS: Base Excess ABG -0.5 mmol/L (0-2); HCO3 ABG 24.4 mmol/L (23-29); Oxygen Content ABG 15.3 %vol (16.0-22.0); Oxygen Saturation ABG 95.5 % (95-97); Oxyhemoglobin 95.1 % (94-100); PCO2 ABG 40.9 mmHg (35-45); PO2 ABG 83.1 mmHg (75-85); Total Hemoglobin 11.4 g/dL (12.0-18.0); pH ABG 7.39 (7.35-7.45)
[2021-09-13 11:16] LABS: Modified Allen's Test Pass; Site Drawn LEFT RADIAL
[2021-09-13 11:17] LABS: Device ROOM AIR
[2021-09-13 11:22] LABS: Basophils Absolute Auto 0.01 K/mm3 (0.00-0.10); Basophils Percent Auto 0.2 % (0.0-1.0); Hematocrit 33.1 % (35.0-42.0); Hemoglobin 10.6 g/dL (11.7-13.8); Immature Granulocyte Absolute 0.01 K/mm3 (0.00-0.00); Immature Granulocyte Percent A 0.2 % (0.0-0.0); Lymphocytes Absolute Auto 0.78 K/mm3 (1.10-4.50); Lymphocytes Percent Auto 15.3 % (18.0-42.0); Mean Corpuscular Hemoglobin 31.7 pg (27.0-31.0); Mean Corpuscular Volume 99.1 fL (78.0-102.0); Monocytes Percent Auto 7.8 % (2.0-11.0); Neutrophils Absolute Auto 3.9 K/mm3 (1.7-7.2); Neutrophils Percent Auto 76.5 % (50.0-70.0); Platelet Count Result 201 K/mm3 (150-420); Red Blood Count 3.34 M/mm3 (4.20-5.40); Red Cell Distribution Width 12.7 % (11.6-14.4); White Blood Count 5.1 K/mm3 (4.8-10.8)
[2021-09-13 11:30] VITALS: BP 137/57; PULSE 60; RESP 18; O2SAT 99
[2021-09-13 11:35] LABS: Alanine Aminotransferase 27 U/L (14-59); Albumin Level 3.1 g/dL (3.4-5.0); Alkaline Phosphatase 70 U/L (46-116); Anion Gap 9 mmol/L (8-16); Aspartate Amino Transferase 16 U/L (15-37); Bilirubin,Total 0.3 mg/dL (0.00-1.00); Blood Urea Nitrogen 16 mg/dL (7-18); Carbon Dioxide 28 mmol/L (21-32); Chloride 103 mmol/L (98-108); Estimated CRCL calculation 34 ml/min; Estimated Glomerular Filt Rate > 60; Glucose 121 mg/dL (70-99); Lactic Acid Reflex 0.8 mmol/L (0.4-2.0); Osmolality Calculated 292 mOsm/kg (285-295); Potassium 3.9 mmol/L (3.5-5.1); Sodium 140 mmol/L (136-145); Total Protein 6.8 g/dL (6.4-8.2)
[2021-09-13 12:34] LABS: Influenza A QL RT-PCR Negative (Negative); Influenza B QL RT-PCR Negative (Negative)
[2021-09-13 12:43] LABS: SARS-CoV-2 RNA PCR Negative (Negative)
--- NOTE | 2021-09-13 13:38 | ED.CHESTPAIN ---
HPI - Chest Pain General Chief Complaint: Chest Pain Stated Complaint: productive cough,can't eat,eye puss Time Seen by Provider: 09/13/21 10:17 Source: patient, family and RN notes reviewed Mode of arrival: ambulatory Limitations: no limitations History of Present Illness MD complaint: chest pain Pertinent past history: coronary artery disease Onset (ago): day(s) (1) Timing of current episode: constant Prior episodes: Yes Onset: during rest and during exertion Pain location: parasternal Pain radiation: none Severity: moderate Pain scale (0-10): 8 Quality: aching and sharp Relieving factors: nothing Exacerbating factors: exertion and inspiration Associated symptoms: dyspnea and cough Treatment prior to arrival: none Risk Factors Coronary artery disease risk factors: diabetes, hyperlipidemia and hypertension Related Data Home Medications Medication Instructions Recorded Confirmed Ozempic 0.5 mg SUBCUT WEEKLY 10/21/20 07/22/21 levothyroxine 112 mcg PO DAILY 10/21/20 07/22/21 pravastatin 20 mg tablet 10 mg PO HS 04/12/21 07/22/21 furosemide 20 mg PO DAILY 04/15/21 07/22/21 potassium chloride 10 meq PO DAILY 04/15/21 07/22/21 Xarelto 15 mg PO QPM 04/29/21 07/22/21 aspirin 81 mg tablet,delayed 81 mg PO DAILY 05/10/21 07/22/21 release spironolactone 25 mg PO DAILY 07/04/21 07/22/21 duloxetine 20 mg PO HS 07/07/21 07/22/21 lidocaine [Aspercreme (lidocaine 1 patch TOPICAL DAILY PRN 07/07/21 07/22/21 HCl)] losartan 50 mg PO DAILY 07/07/21 07/22/21 multivitamin 1 tablet PO DAILY 07/07/21 07/22/21 Allergies Allergy/AdvReac Type Severity Reaction Status Date / Time adhesive tape Allergy Severe BLISTERS Verified 07/22/21 13:03 amiodarone Allergy Severe N/V, Verified 07/22/21 13:03 HEADACHE, HOSPITALIZED atorvastatin Allergy Severe SWELLING Verified 07/22/21 13:03 clindamycin Allergy Severe TACHYCARDIA Verified 07/26/21 15:47 gabapentin Allergy Severe CHF Verified 07/22/21 13:03 gemfibrozil Allergy Severe ELEVATED Verified 07/22/21 13:03 CHOLESTEROL nifedipine Allergy Severe SWELLING Verified 07/22/21 13:03 norfloxacin Allergy Severe SWELLING Verified 07/22/21 13:03 rofecoxib Allergy Severe UPSET Verified 07/22/21 13:03 STOMACH, CAN TAKE WITH MEALS adhesive Allergy Intermediate Unknown Verified 07/22/21 13:03 chlorpheniramine [Ornade] Allergy Intermediate Unknown Verified 07/22/21 13:03 doxycycline Allergy Intermediate Unknown Verified 07/22/21 13:03 erythromycin base Allergy Intermediate Unknown Verified 07/22/21 13:03 flurbiprofen [Ansaid] Allergy Intermediate Unknown Verified 07/22/21 13:03 tetracycline Allergy Intermediate Unconscious Verified 07/22/21 13:03 tramadol [Ultram] Allergy Intermediate Unknown Verified 07/22/21 13:03 cephalexin Allergy Mild Rash Verified 07/22/21 13:03 ciprofloxacin Allergy Unknown Unknown Verified 07/22/21 13:03 diclofenac Allergy Unknown Unknown Verified 07/22/21 13:03 hydroxyzine Allergy Unknown Unknown Verified 07/22/21 13:03 Penicillins Allergy Unknown Unknown Verified 07/22/21 13:03 propoxyphene Allergy Unknown Unknown Verified 07/22/21 13:03 terfenadine Allergy Unknown Unknown Verified 07/22/21 13:03 butorphanol AdvReac Severe RESTLESSNES Verified 07/22/21 13:03 S cerivastatin AdvReac Severe ABDOMINAL Verified 07/22/21 13:03 PAIN, H/A dexamethasone AdvReac Severe IRRITATED Verified 07/22/21 13:03 EYES duloxetine AdvReac Severe H/A Verified 07/22/21 13:03 enalaprilat AdvReac Severe COUGH Verified 07/22/21 13:03 guaifenesin AdvReac Severe NERVOUSNESS Verified 07/22/21 13:03 hydrocodone AdvReac Severe N/V Verified 07/22/21 13:03 isosorbide AdvReac Severe H/A Verified 07/22/21 13:03 levofloxacin AdvReac Severe VOMITING Verified 07/22/21 13:03 meperidine AdvReac Severe H/A Verified 07/22/21 13:03 nitroglycerin AdvReac Severe VOMITING Verified 07/22/21 13:03 oxycodone AdvReac Severe VOMITING Verified 07/22/21 13:03 phenylephrine AdvReac Severe NERVOUSNESS Ve
[2021-09-13 13:56] VITALS: BP 136/90; PULSE 72; RESP 18; O2SAT 100
== END 2021-09-13 14:03 | disposition home or self-care (01) ==
PROVIDERS: Emergency Provider Emergency Medicine; PCP Internal Medicine
DX: J40 Bronchitis, not specified as acute or chronic (principal); R07.89 Other chest pain; Z20.822 Contact with and (suspected) exposure to COVID-19; Z79.01 Long term (current) use of anticoagulants; I50.9 Heart failure, unspecified; E11.9 Type 2 diabetes mellitus without complications; I12.9 Hypertensive chronic kidney disease with stage 1 through stage 4 chronic kidney disease, or unspecified chronic kidney disease; N18.30 Chronic kidney disease, stage 3 unspecified; E03.9 Hypothyroidism, unspecified
CPT/HCPCS: 36415; 36600; 71250; 80053; 82805; 83605; 84484; 85025; 87502; 93005; 99283; 99284; C9803; U0003; U0005

== ENCOUNTER 2021-09-21 11:04 | Emergency (ER) | payer MEDICARE, SELFPAY ==
[2021-09-21] VITALS (7 sets, daily range): BP systolic 163–178; BP diastolic 59–72; PULSE 60–64; RESP 20; TEMP 36.1–36.2; O2SAT 97–98
--- NOTE | ~2021-09-21 | XR_ITS ---
EXAMINATION: XR chest 2V EXAM DATE: 09/21/2021 12:02 INDICATION: dyspnea, cough TECHNIQUE: Frontal and lateral projections of the chest obtained and reviewed. Comparison is made to prior examination from 04/25/2021. FINDINGS: Sternotomy wires are present without findings to suggest sternal dehiscence. There is a du al lead pacemaker/AICD seen with leads projecting over the expected locations of the right atrial annelise endage and right ventricle. The lungs are hyperinflated which can be seen with chronic obstructive pu lmonary disease (a clinical diagnosis of functional impairment), but is not diagnostic of it. No conf luent consolidation, pneumothorax or pleural effusion suspected. Cardiac silhouette is enlarged but s table in size compared to prior exam. There are bony degenerative changes. There are cholecystectom y clips. IMPRESSION: 1. Hyperinflation. 2. Cardiomegaly. Reviewed, dictated and finalized at location A. PATIAL SPECIALIST
--- NOTE | 2021-09-21 11:47 | ECG_ITS ---
Measurements Intervals [place] Rate: 60 P: 251 [place]: 248 QRS: -71 QRSD: 202 T: -32 QT: 499 QTc: 499 Interpretive Statements ELECTRONIC ATRIAL PACEMAKER ELECTRONIC VENTRICULAR PACEMAKER BASELINE ARTIFACT- II, III, AVF, V1, V4 NO FURTHER INTERPRETATION IS POSSIBLE ATYPICAL ECG Electronically Signed On 09-21-2021 12:08:28 CARETAKER GROUNDS by Jim Herr D.O.
[2021-09-21 12:38] LABS: Basophils Absolute Auto 0.01 K/mm3 (0.00-0.10); Basophils Percent Auto 0.1 % (0.0-1.0); Hematocrit 36.6 % (35.0-42.0); Hemoglobin 12.3 g/dL (11.7-13.8); Immature Granulocyte Absolute 0.03 K/mm3 (0.00-0.00); Immature Granulocyte Percent A 0.3 % (0.0-0.0); Lymphocytes Absolute Auto 0.89 K/mm3 (1.10-4.50); Lymphocytes Percent Auto 9.9 % (18.0-42.0); Mean Corpuscular HGB Conc 33.6 g/dL (32.0-36.0); Mean Corpuscular Hemoglobin 31.8 pg (27.0-31.0); Mean Corpuscular Volume 94.6 fL (78.0-102.0); Mean Platelet Volume 9.4 fl (9.2-11.8); Monocytes Absolute Auto 0.51 K/mm3 (0.10-0.90); Monocytes Percent Auto 5.7 % (2.0-11.0); Neutrophils Absolute Auto 7.6 K/mm3 (1.7-7.2); Platelet Count Result 250 K/mm3 (150-420); Red Blood Count 3.87 M/mm3 (4.20-5.40); Red Cell Distribution Width 12.8 % (11.6-14.4)
[2021-09-21 12:59] LABS: Alanine Aminotransferase 30 U/L (14-59); Albumin Level 3.2 g/dL (3.4-5.0); Alkaline Phosphatase 72 U/L (46-116); Anion Gap 8 mmol/L (8-16); Aspartate Amino Transferase 19 U/L (15-37); Bilirubin,Total 0.4 mg/dL (0.00-1.00); Blood Urea Nitrogen 14 mg/dL (7-18); Calcium 8.7 mg/dL (8.5-10.1); Carbon Dioxide 31 mmol/L (21-32); Chloride 99 mmol/L (98-108); Estimated CRCL calculation 35 ml/min; Estimated Glomerular Filt Rate > 60; Glucose 124 mg/dL (70-99); Osmolality Calculated 287 mOsm/kg (285-295); Potassium 2.6 mmol/L (3.5-5.1); Sodium 138 mmol/L (136-145); Troponin I 14.4 ng/L (0.00-60.4)
--- NOTE | 2021-09-21 13:01 | ED.GIBLEED ---
HPI - GI Bleed General Chief complaint: GI Bleed Stated complaint: RECTAL BLEEDING Time Seen by Provider: 09/21/21 13:01 Source: patient Mode of arrival: wheelchair Limitations: no limitations History of Present Illness HPI Narrative: 86-year-old woman history of colitis, AFib, GI bleeds and chronic anticoagulation comes to the emergency department complaining of nausea, low abdominal pain, passing blood and bloody stools, and recent cough and cold symptoms. She states she has recently been taking Omnicef for pulmonary symptoms. MD complaint: blood streaked stool and gross hematochezia Onset (ago): day(s) (3) Pain Consistency: intermittent Severity: moderate Relieving factors: none Exacerbating factors: none Context: history of GI bleed Associated symptoms: abdominal pain, nausea, loss of appetite and weakness Treatments Prior to Arrival: none Related Data Home Medications Medication Instructions Recorded Confirmed Ozempic 0.5 mg SUBCUT WEEKLY 10/21/20 07/22/21 levothyroxine 112 mcg PO DAILY 10/21/20 07/22/21 pravastatin 20 mg tablet 10 mg PO HS 04/12/21 07/22/21 furosemide 20 mg PO DAILY 04/15/21 07/22/21 potassium chloride 10 meq PO DAILY 04/15/21 07/22/21 Xarelto 15 mg PO QPM 04/29/21 07/22/21 aspirin 81 mg tablet,delayed 81 mg PO DAILY 05/10/21 07/22/21 release spironolactone 25 mg PO DAILY 07/04/21 07/22/21 duloxetine 20 mg PO HS 07/07/21 07/22/21 lidocaine [Aspercreme (lidocaine 1 patch TOPICAL DAILY PRN 07/07/21 07/22/21 HCl)] losartan 50 mg PO DAILY 07/07/21 07/22/21 multivitamin 1 tablet PO DAILY 07/07/21 07/22/21 Allergies Allergy/AdvReac Type Severity Reaction Status Date / Time adhesive tape Allergy Severe BLISTERS Verified 07/22/21 13:03 amiodarone Allergy Severe N/V, Verified 07/22/21 13:03 HEADACHE, HOSPITALIZED atorvastatin Allergy Severe SWELLING Verified 07/22/21 13:03 clindamycin Allergy Severe TACHYCARDIA Verified 07/26/21 15:47 gabapentin Allergy Severe CHF Verified 07/22/21 13:03 gemfibrozil Allergy Severe ELEVATED Verified 07/22/21 13:03 CHOLESTEROL nifedipine Allergy Severe SWELLING Verified 07/22/21 13:03 norfloxacin Allergy Severe SWELLING Verified 07/22/21 13:03 rofecoxib Allergy Severe UPSET Verified 07/22/21 13:03 STOMACH, CAN TAKE WITH MEALS adhesive Allergy Intermediate Unknown Verified 07/22/21 13:03 chlorpheniramine [Ornade] Allergy Intermediate Unknown Verified 07/22/21 13:03 doxycycline Allergy Intermediate Unknown Verified 07/22/21 13:03 erythromycin base Allergy Intermediate Unknown Verified 07/22/21 13:03 flurbiprofen [Ansaid] Allergy Intermediate Unknown Verified 07/22/21 13:03 tetracycline Allergy Intermediate Unconscious Verified 07/22/21 13:03 tramadol [Ultram] Allergy Intermediate Unknown Verified 07/22/21 13:03 cephalexin Allergy Mild Rash Verified 07/22/21 13:03 ciprofloxacin Allergy Unknown Unknown Verified 07/22/21 13:03 diclofenac Allergy Unknown Unknown Verified 07/22/21 13:03 hydroxyzine Allergy Unknown Unknown Verified 07/22/21 13:03 Penicillins Allergy Unknown Unknown Verified 07/22/21 13:03 propoxyphene Allergy Unknown Unknown Verified 07/22/21 13:03 terfenadine Allergy Unknown Unknown Verified 07/22/21 13:03 butorphanol AdvReac Severe RESTLESSNES Verified 07/22/21 13:03 S cerivastatin AdvReac Severe ABDOMINAL Verified 07/22/21 13:03 PAIN, H/A dexamethasone AdvReac Severe IRRITATED Verified 07/22/21 13:03 EYES duloxetine AdvReac Severe H/A Verified 07/22/21 13:03 enalaprilat AdvReac Severe COUGH Verified 07/22/21 13:03 guaifenesin AdvReac Severe NERVOUSNESS Verified 07/22/21 13:03 hydrocodone AdvReac Severe N/V Verified 07/22/21 13:03 isosorbide AdvReac Severe H/A Verified 07/22/21 13:03 levofloxacin AdvReac Severe VOMITING Verified 07/22/21 13:03 meperidine AdvReac Severe H/A Verified 07/22/21 13:03 nitroglycerin AdvReac Severe VOMITING Verified 07/22/21 13:03 oxycodone AdvReac Severe VOMITING Verified 07/22/21 13:03 phenylephr
[2021-09-21 13:02] LABS: SARS-CoV-2 RNA PCR Negative (Negative)
[2021-09-21 13:13] LABS: Add Urine Microscopic? YES; Appearance Urine Clear (Clear); Bilirubin Urine Negative (Negative); Blood Urine Negative (Negative); Color Urine Light Yellow (Yellow); Glucose Urine UA Negative (Negative); Ketones Urine Negative (Negative); Leukocyte Esterase Ur Trace LEU/UL (Negative); Nitrate Urine Negative (Negative); Protein Urine Negative (Negative); Urobilinogen Urine 0.2 mg/dL (0.2-1.0); pH Urine 6.5 (5.0-8.0)
[2021-09-21 13:34] LABS: Bacteria Urine None seen /hpf; RBC Urine None seen /hpf (0-2); Squamous Epithelial Cell Urine None seen /hpf (Few); WBC Urine 0-3 /hpf (0-3)
[2021-09-21] MEDS: KCL 20 MEQ/SW 100 ML 100 ML 50 MEQ IVPB (13:37)
[2021-09-21] MEDS: POTASSIUM CHLORIDE 20 MEQ TABLET 40 MEQ PO (13:37)
[2021-09-21] MEDS: SODIUM CHLORIDE 0.9% IV 1,000 ML 999 ML IV CONT (13:38)
[2021-09-21 14:40] LABS: Occult Blood Negative (Negative)
[2021-09-21 16:54] LABS: Anion Gap 10 mmol/L (8-16); Blood Urea Nitrogen 12 mg/dL (7-18); Calcium 8.5 mg/dL (8.5-10.1); Carbon Dioxide 28 mmol/L (21-32); Chloride 102 mmol/L (98-108); Estimated CRCL calculation 40 ml/min; Estimated Glomerular Filt Rate > 60; Glucose 115 mg/dL (70-99); Osmolality Calculated 290 mOsm/kg (285-295); Potassium 3.1 mmol/L (3.5-5.1); Sodium 140 mmol/L (136-145)
== END 2021-09-21 17:20 | disposition home or self-care (01) ==
PROVIDERS: Emergency Provider Emergency Medicine; PCP Internal Medicine
DX: E87.6 Hypokalemia (principal); Z20.822 Contact with and (suspected) exposure to COVID-19; Z79.01 Long term (current) use of anticoagulants; I12.9 Hypertensive chronic kidney disease with stage 1 through stage 4 chronic kidney disease, or unspecified chronic kidney disease; N18.30 Chronic kidney disease, stage 3 unspecified; I50.9 Heart failure, unspecified; E11.9 Type 2 diabetes mellitus without complications; I25.10 Atherosclerotic heart disease of native coronary artery without angina pectoris; E03.9 Hypothyroidism, unspecified
CPT/HCPCS: 36415; 71046; 80048; 80053; 81001; 82272; 84484; 85025; 87324; 93005; 96361; 96365; 96366; 99283; 99284; A9270; C9803; J3480; J7030; U0003; U0005

== ENCOUNTER 2021-10-22 13:22 | Emergency (ER) | payer MEDICARE, SELFPAY ==
--- NOTE | ~2021-10-22 | XR_ITS ---
EXAMINATION: XR abdomen obstructive series DATE: 10/22/2021 17:00 INDICATION: Diarrhea. TECHNIQUE: Upright and supine views of the abdomen on 3 radiographs were obtained. COMPARISON: CT abdomen and pelvis 07/07/2021 FINDINGS: There are no dilated loops of bowel. There is a moderate volume of stool in the colon. No f ree intraperitoneal gas. Surgical clips in the right upper quadrant are likely from cholecystectomy. Median sternotomy wires and mediastinal surgical clips are seen, likely from prior coronary artery by pass grafting. There is a pacer wire in right ventricle. There are old healed right rib fractures. IMPRESSION: 1. Nonobstructive bowel gas pattern. Reviewed, dictated and finalized at location E. P MIXER ASSISTANT
[2021-10-22 13:27] VITALS: BP 154/70; PULSE 78; RESP 20; TEMP 36.4; O2SAT 100
[2021-10-22 14:56] VITALS: BP 146/59; PULSE 66; RESP 18; O2SAT 100
[2021-10-22 15:15] LABS: Basophils Percent Auto 0.3 % (0.2-1.2); Hematocrit 28.5 % (37.0-47.0); Immature Granulocyte Absolute 0.02 K/mm3 (0.00-0.031); Immature Granulocyte Percent A 0.3 % (0-0.5); Lymphocytes Absolute Auto 0.78 K/mm3 (0.9-3.2); Lymphocytes Percent Auto 10.4 % (18.3-44.2); Mean Corpuscular HGB Conc 31.6 g/dl (32-36); Mean Corpuscular Hemoglobin 30.8 pg (26-34); Mean Corpuscular Volume 97.6 fl (80-100); Mean Platelet Volume 9.9 fl (7.4-10.4); Monocytes Absolute Auto 0.4 K/mm3 (0.1-0.6); Monocytes Percent Auto 5.9 % (2.6-8.5); Neutrophils Absolute Auto 6.2 K/mm3 (1.3-6.7); Neutrophils Percent Auto 83.1 % (45.5-73.1); Platelet Count Result 225 k/mm3 (150-375); Red Blood Count 2.92 M/mm3 (4.2-5.4); Red Cell Distribution Width 13.8 % (11.5-14.5); White Blood Count 7.5 K/mm3 (4.5-10.0)
[2021-10-22 15:24] LABS: Alanine Aminotransferase 27 U/L (4-35); Albumin Level 3.3 g/dL (3.5-5.1); Alkaline Phosphatase 81 U/L (38-126); Anion Gap 2 mmol/L (8-16); Aspartate Amino Transferase 30 U/L (14-36); Bilirubin,Total 0.4 mg/dL (0.2-1.3); Blood Urea Nitrogen 12 mg/dL (7-17); Calcium 8.4 mg/dL (8.4-10.2); Carbon Dioxide 28 mmol/L (22-30); Chloride 100 mmol/L (98-107); Estimated CRCL calculation 35 ml/min; Estimated Glomerular Filt Rate 60; Glucose 218 mg/dL (65-110); Potassium 3.4 mmol/L (3.4-5.0); Sodium 130 mmol/L (137-145)
[2021-10-22 16:17] LABS: Lipase < 10 U/L (23-300)
--- NOTE | 2021-10-22 16:33 | ED.GENADULT ---
HPI - General Adult General Chief complaint: Nausea/Vomiting/Diarrhea Stated complaint: diarrhea Time Seen by Provider: 10/22/21 13:32 Source: patient and family Mode of arrival: ambulatory Limitations: no limitations History of Present Illness HPI narrative: Patient is 86 years old white female presents with intermittent episodes of diarrhea over 2 months ago after any meal. Patient does not have any diarrhea without eating.. Patient was seen by her family physician, without specific diagnosis, patient denies any fever, chills, nausea, vomiting. Patient reports some diffuse soreness of the abdomen, patient had last colonoscopy by Dr. Evans April 2021, history of sigmoiditis confirmed by the colonoscopy Related Data Home Medications Medication Instructions Recorded Confirmed Ozempic 0.5 mg SUBCUT WEEKLY 10/21/20 07/22/21 levothyroxine 112 mcg PO DAILY 10/21/20 07/22/21 pravastatin 20 mg tablet 10 mg PO HS 04/12/21 07/22/21 furosemide 20 mg PO DAILY 04/15/21 07/22/21 potassium chloride 10 meq PO DAILY 04/15/21 07/22/21 Xarelto 15 mg PO QPM 04/29/21 07/22/21 aspirin 81 mg tablet,delayed 81 mg PO DAILY 05/10/21 07/22/21 release spironolactone 25 mg PO DAILY 07/04/21 07/22/21 duloxetine 20 mg PO HS 07/07/21 07/22/21 lidocaine [Aspercreme (lidocaine 1 patch TOPICAL DAILY PRN 07/07/21 07/22/21 HCl)] losartan 50 mg PO DAILY 07/07/21 07/22/21 multivitamin 1 tablet PO DAILY 07/07/21 07/22/21 Allergies Allergy/AdvReac Type Severity Reaction Status Date / Time adhesive tape Allergy Severe BLISTERS Verified 07/22/21 13:03 amiodarone Allergy Severe N/V, Verified 07/22/21 13:03 HEADACHE, HOSPITALIZED atorvastatin Allergy Severe SWELLING Verified 07/22/21 13:03 clindamycin Allergy Severe TACHYCARDIA Verified 07/26/21 15:47 gabapentin Allergy Severe CHF Verified 07/22/21 13:03 gemfibrozil Allergy Severe ELEVATED Verified 07/22/21 13:03 CHOLESTEROL nifedipine Allergy Severe SWELLING Verified 07/22/21 13:03 norfloxacin Allergy Severe SWELLING Verified 07/22/21 13:03 rofecoxib Allergy Severe UPSET Verified 07/22/21 13:03 STOMACH, CAN TAKE WITH MEALS adhesive Allergy Intermediate Unknown Verified 07/22/21 13:03 chlorpheniramine [Ornade] Allergy Intermediate Unknown Verified 07/22/21 13:03 doxycycline Allergy Intermediate Unknown Verified 07/22/21 13:03 erythromycin base Allergy Intermediate Unknown Verified 07/22/21 13:03 flurbiprofen [Ansaid] Allergy Intermediate Unknown Verified 07/22/21 13:03 tetracycline Allergy Intermediate Unconscious Verified 07/22/21 13:03 tramadol [Ultram] Allergy Intermediate Unknown Verified 07/22/21 13:03 cephalexin Allergy Mild Rash Verified 07/22/21 13:03 ciprofloxacin Allergy Unknown Unknown Verified 07/22/21 13:03 diclofenac Allergy Unknown Unknown Verified 07/22/21 13:03 hydroxyzine Allergy Unknown Unknown Verified 07/22/21 13:03 Penicillins Allergy Unknown Unknown Verified 07/22/21 13:03 propoxyphene Allergy Unknown Unknown Verified 07/22/21 13:03 terfenadine Allergy Unknown Unknown Verified 07/22/21 13:03 butorphanol AdvReac Severe RESTLESSNES Verified 07/22/21 13:03 S cerivastatin AdvReac Severe ABDOMINAL Verified 07/22/21 13:03 PAIN, H/A dexamethasone AdvReac Severe IRRITATED Verified 07/22/21 13:03 EYES duloxetine AdvReac Severe H/A Verified 07/22/21 13:03 enalaprilat AdvReac Severe COUGH Verified 07/22/21 13:03 guaifenesin AdvReac Severe NERVOUSNESS Verified 07/22/21 13:03 hydrocodone AdvReac Severe N/V Verified 07/22/21 13:03 isosorbide AdvReac Severe H/A Verified 07/22/21 13:03 levofloxacin AdvReac Severe VOMITING Verified 07/22/21 13:03 meperidine AdvReac Severe H/A Verified 07/22/21 13:03 nitroglycerin AdvReac Severe VOMITING Verified 07/22/21 13:03 oxycodone AdvReac Severe VOMITING Verified 07/22/21 13:03 phenylephrine AdvReac Severe NERVOUSNESS Verified 07/22/21 13:03 phenylpropanolamine AdvReac Severe NERVOUSNESS Verified 07/22/21 13:03 prednisone AdvReac
[2021-10-22] MEDS: SODIUM CHLORIDE 0.9% IV 1,000 ML 999 ML IV CONT (16:44)
[2021-10-22 17:30] VITALS: BP 146/59; PULSE 90; RESP 16; O2SAT 100
[2021-10-22 18:28] VITALS: BP 162/74; PULSE 81; RESP 16; O2SAT 100
[2021-10-22 18:47] LABS: Add Urine Microscopic? YES; Appearance Urine Clear (Clear); Bilirubin Urine Negative (Negative); Color Urine Yellow (Yellow); Glucose Urine UA Negative (Negative); Ketones Urine Negative (Negative); Leukocyte Esterase Ur 1+ LEU/UL (Negative); Mucus Urine Rare /lpf; Nitrate Urine Negative (Negative); Protein Urine Negative (Negative); RBC Urine 0-2 /hpf (0-2); Squamous Epithelial Cell Urine Rare /hpf (Few); WBC Urine 21-30 /hpf
[2021-10-22 18:48] LABS: Blood Urine Negative (Negative)
[2021-10-26 19:41] LABS: Neutral Fat, Stool Normal (Normal)
== END 2021-10-22 18:42 | disposition home or self-care (01) ==
PROVIDERS: Emergency Provider Emergency Medicine; PCP Internal Medicine
DX: R19.7 Diarrhea, unspecified (principal); E87.1 Hypo-osmolality and hyponatremia; E11.65 Type 2 diabetes mellitus with hyperglycemia; E11.22 Type 2 diabetes mellitus with diabetic chronic kidney disease; I13.0 Hypertensive heart and chronic kidney disease with heart failure and stage 1 through stage 4 chronic kidney disease, or unspecified chronic kidney disease; N18.30 Chronic kidney disease, stage 3 unspecified; I50.9 Heart failure, unspecified; E11.42 Type 2 diabetes mellitus with diabetic polyneuropathy; E11.69 Type 2 diabetes mellitus with other specified complication; E78.5 Hyperlipidemia, unspecified; I25.10 Atherosclerotic heart disease of native coronary artery without angina pectoris; Z95.0 Presence of cardiac pacemaker; E03.9 Hypothyroidism, unspecified; I48.92 Unspecified atrial flutter; D64.9 Anemia, unspecified; Z86.73 Personal history of transient ischemic attack (TIA), and cerebral infarction without residual deficits; Z86.010 Personal history of colon polyps; Z95.1 Presence of aortocoronary bypass graft; Z96.651 Presence of right artificial knee joint; Z98.42 Cataract extraction status, left eye; Z98.41 Cataract extraction status, right eye; Z96.1 Presence of intraocular lens; Z79.899 Other long term (current) drug therapy; Z79.82 Long term (current) use of aspirin; Z79.01 Long term (current) use of anticoagulants
CPT/HCPCS: 36415; 74019; 80053; 81001; 82705; 83690; 85025; 87086; 87269; 87272; 89055; 96360; 99283; J7030

== ENCOUNTER 2021-10-30 06:43 | Outpatient (CLI) | payer MEDICARE, SELFPAY ==
[2021-10-30 06:57] LABS: Basophils Absolute Auto 0.03 K/mm3 (0.00-0.10); Basophils Percent Auto 0.5 % (0.0-1.0); Hemoglobin 9.4 g/dL (11.7-13.8); Immature Granulocyte Absolute 0.02 K/mm3 (0.00-0.00); Immature Granulocyte Percent A 0.3 % (0.0-0.0); Lymphocytes Absolute Auto 1.38 K/mm3 (1.10-4.50); Mean Corpuscular HGB Conc 31.3 g/dL (32.0-36.0); Mean Corpuscular Hemoglobin 31.1 pg (27.0-31.0); Mean Corpuscular Volume 99.3 fL (78.0-102.0); Mean Platelet Volume 9.3 fl (9.2-11.8); Monocytes Absolute Auto 0.57 K/mm3 (0.10-0.90); Monocytes Percent Auto 9.1 % (2.0-11.0); Neutrophils Absolute Auto 4.3 K/mm3 (1.7-7.2); Neutrophils Percent Auto 68.1 % (50.0-70.0); Platelet Count Result 272 K/mm3 (150-420); Red Blood Count 3.02 M/mm3 (4.20-5.40); Red Cell Distribution Width 15.7 % (11.6-14.4); White Blood Count 6.3 K/mm3 (4.8-10.8)
[2021-10-30 07:09] LABS: Hemoglobin A1C 6.7 % (<5.7)
[2021-10-30 07:47] LABS: Alanine Aminotransferase 29 U/L (14-59); Albumin Level 3.5 g/dL (3.4-5.0); Alkaline Phosphatase 71 U/L (46-116); Anion Gap 8 mmol/L (8-16); Aspartate Amino Transferase 14 U/L (15-37); Bilirubin,Total 0.5 mg/dL (0.00-1.00); Blood Urea Nitrogen 14 mg/dL (7-18); Calcium 8.8 mg/dL (8.5-10.1); Carbon Dioxide 32 mmol/L (21-32); Chloride 100 mmol/L (98-108); Estimated Glomerular Filt Rate 49; Ferritin 49 ng/mL (8-252); Glucose 142 mg/dL (70-99); Iron 31 ug/dL (50-170); Osmolality Calculated 292 mOsm/kg (285-295); Percent Iron Saturation 12 % (12-57); Sodium 140 mmol/L (136-145); Total Protein 6.7 g/dL (6.4-8.2)
[2021-11-03 22:05] LABS: Methylmalonic Acid 199 nmol/L (87-318)
== END 2021-10-30 06:44 | disposition home or self-care (01) ==
PROVIDERS: PCP Internal Medicine; Visit Provider Internal Medicine
DX: E11.9 Type 2 diabetes mellitus without complications (principal); D64.9 Anemia, unspecified
CPT/HCPCS: 36415; 80053; 82728; 83036; 83540; 83550; 83921; 85025

== ENCOUNTER 2021-11-02 11:49 | Inpatient (IN) | payer MEDICARE, SELFPAY ==
[2021-11-02] VITALS (54 sets, daily range): BP systolic 108–196; BP diastolic 39–171; PULSE 60–101; RESP 9–118; TEMP 36–36.8; O2SAT 75–100; BMI 19.5
--- NOTE | ~2021-11-02 | XR_ITS ---
EXAMINATION: XR chest 2V EXAM DATE: 11/02/2021 12:27 INDICATION: chest pain, pressure, weakness . TECHNIQUE: Frontal and lateral projections of the chest obtained and reviewed. Comparison is made to prior examination from 09/21/2021. FINDINGS: Sternotomy wires are present without findings to suggest sternal dehiscence. There is a edith l lead pacemaker/AICD seen with leads projecting over the expected locations of the right atrial appe ndage and right ventricle. There is cardiomegaly. There are small bilateral pleural effusions. No foc al airspace disease or pneumothorax. There are bony degenerative changes. There are cholecystectomy c lips. IMPRESSION: 1. Cardiomegaly and small pleural effusions. Reviewed, dictated and finalized at location A. ILITY ARCHITECT
--- NOTE | ~2021-11-02 | CT_ITS ---
EXAMINATION: CT abdomen pelvis w con DATE: 11/02/2021 14:17 INDICATION: Abdominal pain, diarrhea and blood in stool. TECHNIQUE: Computed tomography (CT) of the abdomen and pelvis was performed with 100 cc Omnipaque 350 intravenous contrast. The dose-length product was 207.86 mGy-cm. Automated exposure control and iter ative reconstruction technique were employed. COMPARISON: CT dated 07/07/2021. FINDINGS: Cardiomegaly. Small pleural effusions, right greater than left. There is compressive atelec tasis. Moderate atherosclerosis without evidence for aneurysm or dissection. No lymphadenopathy. Fatty infiltration of the liver. The spleen, adrenal glands and right kidney are unremarkable. There are left renal cysts. There is thickening and mucosal enhancement of the distal descending and sigmoi d colon, suspicious for colitis. The celiac axis, SMA, TON and renal arteries are patent. No free air or free fluid. Moderate lumbar spondylosis. IMPRESSION: 1. Thickening with mucosal enhancement of the distal descending and sigmoid colon, suspicious for col itis, most likely infectious or inflammatory. 2: Small pleural effusions with underlying compressive atelectasis. 3: Hepatic steatosis. 4: Cardiomegaly. Reviewed, dictated and finalized at location B. TOP HAT BODY MAKER IMPRESSION: 1. Thickening with mucosal enhancement of the distal descending and sigmoid col on, suspicious for colitis, most likely infectious or inflammatory. 2: Small pleural effusions with underlying compressive atelectasis. 3: Hepatic steatosis. 4: Cardiomegaly.
--- NOTE | ~2021-11-02 | CT_ITS ---
EXAMINATION: CT brain wo con INDICATION: New onset confusion COMPARISON: 04/25/2021 TECHNIQUE: Standard unenhanced head CT. The dose-length product (DLP) was 605.33 mGy-cm. The mA was a djusted according to patient size. Iterative reconstruction technique was employed. FINDINGS: There is no acute intraparenchymal hemorrhage. No evidence of mass lesion. There is mild hy poattenuation in the periventricular white matter of the left frontal lobe, new since the comparison examination. There is mild periventricular and subcortical hypodensity probably related to small vess el ischemic disease. There is mild prominence of the sulci and ventricles related to cerebral atrophy . Intracranial calcified cerebral atherosclerosis is noted. There are no extra-axial collections. The re is no mass effect or midline shift. Changes in the globes are likely from ocular lens surgery. Con trast from earlier CT examination partially opacifies the intracranial vasculature. There is mild to moderate mucosal thickening of the paranasal sinuses. IMPRESSION: 1. Hypoattenuation in the periventricular white matter of the left frontal lobe, consistent with age- indeterminate infarct. 2. Age related findings. Reviewed, dictated and finalized at location F. CTOR DIETETICS DEPARTMENT IMPRESSION: 1. Hypoattenuation in the periventricular white matter of the left frontal lobe , consistent with age-indeterminate infarct. 2. Age related findings.
--- NOTE | ~2021-11-02 | CT_ITS ---
EXAMINATION: CTA brain carotid EXAM DATE: 11/03/2021 15:00 INDICATION: stroke TECHNIQUE: Noncontrast head CT. Spiral CTA of the carotid arteries was performed with intravenous i njection 100 cc of Omnipaque 350. Axial, coronal, sagittal reformatted images reviewed. Additional r eformatted images created on dedicated 3-D workstation. NASCET comparable standard used to assess th e degree of arterial stenosis. Spiral CT angiogram cerebral arteries performed with the same intrave nous injection of contrast. Source images of the brain CTA transferred to dedicated workstation for 3 -D rotational image creation. Coronal, sagittal maximum intensity pixel images also reviewed. The d ose-length product (DLP) for this examination was 1359.55 mGy-cm. The exposure was tailored accordi ng to patient size, and iterative reconstruction (ASIR) was used as additional dose reduction techniq ue. Comparison is made to prior examination from 11/02/2021. FINDINGS: The left vertebral artery is dominant. There is mild bilateral carotid bulb arteriosclerosi s with 0% carotid stenosis bilaterally. Regions of circumferential distal ICA arteriosclerosis with n o more than mild stenosis. There is no carotid or vertebral basilar arterial dissection or fibromusc ular dysplasia. There are no cerebral artery aneurysms. There is symmetric cerebral artery arborizati on. The sagittal, transverse and sigmoid sinuses enhance normally, no venous sinus thrombosis. Sport Intern al cerebral veins also enhance normally. Again there are scattered low-density regions in the left frontal lobe white matter, watershed distri bution between the MCA and PEACE territory. Appearance suggests these could be acute infarctions. No la rger cortical based infarctions. Incidental Findings: Moderate right sphenoid, mild left maxillary and bilateral ethmoid mucoperiostea l thickening. Bilateral cataract surgery. Sternotomy wires. Pacemaker. Moderate to severe mid cervica l facet arthropathy, moderate disc disease. IMPRESSION: 1. Several left frontal lobe white matter hypodensities suspicious for acute infarctions. 2. Bilateral carotid bulb 0% stenosis. Reviewed, dictated and finalized at location G. RONMENTAL HEALTH AND SAFETY MANAGER IMPRESSION: 1. Several left frontal lobe white matter hypodensities suspicious for acute i nfarctions. 2. Bilateral carotid bulb 0% stenosis.
--- NOTE | ~2021-11-02 | US_ITS ---
EXAMINATION: US venous doppler [facility] DATE: 11/04/2021 08:01 INDICATION: Lower limb swelling. TECHNIQUE: Grayscale ultrasound images without and with compression and Doppler ultrasound images of the bilateral lower extremity veins were obtained. COMPARISON: Ultrasound 08/01/2016 FINDINGS: The visualized portions of right common femoral vein, profunda (deep) femoral vein, femoral vein, pop liteal vein, peroneal veins, posterior tibial veins, and greater saphenous vein outflow are patent. The visualized portions of left common femoral vein, profunda femoral vein, femoral vein, popliteal v ein, peroneal veins, posterior tibial veins, and greater saphenous vein outflow are patent. IMPRESSION: 1. No deep venous thrombosis. Reviewed, dictated and finalized at location E. P SEGMENT CONSULTANT
--- NOTE | ~2021-11-02 | US_ITS ---
EXAMINATION: US carotid duplex BI DATE: 11/03/2021 12:38 INDICATION: Stroke TECHNIQUE: Grayscale, color Doppler, and pulsed Doppler images of the cervical carotid arteries were obtained. The degree of vessel stenosis is placed in one of the following categories: normal, <50%, 5 0-69%, >=70% but less than near-occlusion, near-occlusion, or total occlusion. Note that percent sten osis relative to normal distal artery lumen diameter is indirectly measured from velocity measurement s as described by Wilman, et al. Radiology 2003; 229:340-346. Notes: Normal: Peak systolic velocity <125 centimeters/sec and no plaque <50%. Peak systolic velocity <125 ( EDV <40; ICA/CCA PSV ratio <2.0; used these factors only a tandem lesions or low cardiac output or co ntralateral disease) 50-69 %: PSV 125-230 (EDV 40-100; ratio 2-4) >= 70% but less than near occlusion: PSV greater than 230 (EDV > 100; ratio> 4.0) Near Occlusion: PSV that is variable; markedly narrowed lumen Occlusion: Absent flow on color/spectral Doppler and no lumen on howard scale. COMPARISON: None. FINDINGS: RIGHT: The right common carotid artery (CCA) peak systolic velocity (PSV) is 95 cm/s. The right internal car otid artery (ICA) PSV is 93 cm/s. The right ICA end-diastolic velocity (EDV) is 29 cm/s. The right IC A/CCA PSV ratio is 0.98. The external carotid artery (ECA) PSV is 78 cm/s. There is antegrade flow in the right vertebral artery. LEFT: The left CCA PSV is 115 cm/s. The left ICA PSV is 91 cm/s. The left ICA EDV is 18 cm/s. The left ICA/ CCA PSV ratio is 0.8. The ECA PSV is 208 cm/s. There is antegrade flow in the left vertebral artery. IMPRESSION: 1. Less than 50% stenosis in the right internal carotid artery by sonographic criteria. 2. Less than 50% stenosis in the left internal carotid artery by sonographic criteria. Reviewed, dictated and finalized at location B. KSHAFT STRAIGHTENER IMPRESSION: 1. Less than 50% stenosis in the right internal carotid artery by sonographic tang delgado. 2. Less than 50% stenosis in the left internal carotid artery by sonographic dmitri chaudhari.
--- NOTE | 2021-11-02 12:00 | ECG_ITS ---
Measurements Intervals [place] Rate: 65 P: 4 IN: 247 QRS: -33 QRSD: 141 T: 261 QT: 470 QTc: 490 Interpretive Statements SINUS RHYTHM WITH FIRST DEGREE AV BLOCK LEFT AXIS DEVIATION POSSIBLE LEFT ATRIAL ENLARGEMENT LEFT BUNDLE BRANCH BLOCK ABNORMAL ECG Electronically Signed On 11-02-2021 12:37:06 RECEPTIONIST CLERK by Jim Herr D.O.
[2021-11-02 12:16] LABS: Basophils Percent Auto 0.3 % (0.2-1.2); Hematocrit 27.2 % (37.0-47.0); Hemoglobin 8.4 g/dL (12.0-15.0); Immature Granulocyte Absolute 0.02 K/mm3 (0.00-0.031); Immature Granulocyte Percent A 0.3 % (0-0.5); Lymphocytes Absolute Auto 0.74 K/mm3 (0.9-3.2); Lymphocytes Percent Auto 10.8 % (18.3-44.2); Mean Corpuscular HGB Conc 30.9 g/dl (32-36); Mean Corpuscular Volume 100.4 fl (80-100); Mean Platelet Volume 10.1 fl (7.4-10.4); Monocytes Absolute Auto 0.4 K/mm3 (0.1-0.6); Monocytes Percent Auto 5.5 % (2.6-8.5); Neutrophils Absolute Auto 5.7 K/mm3 (1.3-6.7); Neutrophils Percent Auto 83.1 % (45.5-73.1); Platelet Count Result 237 k/mm3 (150-375); Red Blood Count 2.71 M/mm3 (4.2-5.4); Red Cell Distribution Width 16.4 % (11.5-14.5); White Blood Count 6.9 K/mm3 (4.5-10.0)
--- NOTE | 2021-11-02 12:20 | PC.NURSE ---
Patient off unit to Radiology.
[2021-11-02 12:23] LABS: Alanine Aminotransferase 19 U/L (4-35); Albumin Level 3.8 g/dL (3.5-5.1); Alkaline Phosphatase 55 U/L (38-126); Anion Gap 4 mmol/L (8-16); Aspartate Amino Transferase 29 U/L (14-36); Bilirubin,Total 0.6 mg/dL (0.2-1.3); Blood Urea Nitrogen 19 mg/dL (7-17); Calcium 8.5 mg/dL (8.4-10.2); Carbon Dioxide 30 mmol/L (22-30); Chloride 102 mmol/L (98-107); Estimated CRCL calculation 34 ml/min; Estimated Glomerular Filt Rate 60; Glucose 87 mg/dL (65-110); Lipase 35 U/L (23-300); Potassium 4.1 mmol/L (3.4-5.0); Sodium 136 mmol/L (137-145)
[2021-11-02 12:29] LABS: INR 1.4; Prothrombin Time 16.7 Seconds (11.1-14.7)
[2021-11-02 12:30] LABS: Partial Thromboplastin Time 30.9 SECONDS (22.3-36.8)
[2021-11-02 12:35] LABS: Troponin I < 0.012 ng/mL (0.000-0.034)
[2021-11-02] MEDS: ASPIRIN 81 MG CHEWABLE TABLET 324 MG PO (12:37)
--- NOTE | 2021-11-02 13:39 | ED.CHESTPAIN ---
HPI - Chest Pain General Chief Complaint: Chest Pain Stated Complaint: Chest Pain, SOB Time Seen by Provider: 11/02/21 12:04 Source: patient, family, RN notes reviewed and old records reviewed Mode of arrival: wheelchair Limitations: other (poor historian) History of Present Illness HPI narrative: This is an 86 year old female with history CAD, CABG, colitis, hypertension who presents for evaluation of chest pain and shortness of breath. Patient's is at bedside to assist with history. He states patient told him starting at 1 am this morning she was having midsternal chest pressure. She continued to have pain throughout the morning but she refused to come to hospital. Patient's called her PCP who recommended patient came to ER so he finally brought her in ER. Patient's pain has been constant and she denies any exacerbating factors. She has not tried anything for her pain. She also reports upper abdominal pain and blood in her stool this morning. She reports history of colitis but states she has not had blood in her stool in a long time. She takes Xarelto. Related Data Home Medications Medication Instructions Recorded Confirmed Ozempic 0.5 mg SUBCUT WEEKLY 10/21/20 11/02/21 levothyroxine 112 mcg PO DAILY 10/21/20 11/02/21 pravastatin 20 mg tablet 10 mg PO HS 04/12/21 11/02/21 furosemide 20 mg PO DAILY 04/15/21 11/02/21 potassium chloride 10 meq PO DAILY 04/15/21 11/02/21 Xarelto 15 mg PO QPM 04/29/21 11/02/21 aspirin 81 mg tablet,delayed 81 mg PO DAILY 05/10/21 11/02/21 release spironolactone 25 mg PO DAILY 07/04/21 11/02/21 duloxetine 20 mg PO HS 07/07/21 11/02/21 lidocaine [Aspercreme (lidocaine 1 patch TOPICAL DAILY PRN 07/07/21 11/02/21 HCl)] losartan 50 mg PO DAILY 07/07/21 11/02/21 multivitamin 1 tablet PO DAILY 07/07/21 11/02/21 ferrous sulfate [FeroSul] 325 mg PO DAILY 11/02/21 11/02/21 insulin NPH and regular human 10 unit SUBCUT BID 11/02/21 11/02/21 [Humulin 70/30 U-100 KwikPen] Allergies Allergy/AdvReac Type Severity Reaction Status Date / Time adhesive tape Allergy Severe BLISTERS Verified 11/02/21 12:02 amiodarone Allergy Severe N/V, Verified 11/02/21 12:02 HEADACHE, HOSPITALIZED atorvastatin Allergy Severe SWELLING Verified 11/02/21 12:02 clindamycin Allergy Severe TACHYCARDIA Verified 11/02/21 12:02 gabapentin Allergy Severe CHF Verified 11/02/21 12:02 gemfibrozil Allergy Severe ELEVATED Verified 11/02/21 12:02 CHOLESTEROL nifedipine Allergy Severe SWELLING Verified 11/02/21 12:02 norfloxacin Allergy Severe SWELLING Verified 11/02/21 12:02 adhesive Allergy Intermediate Unknown Verified 11/02/21 12:02 chlorpheniramine [Ornade] Allergy Intermediate Unknown Verified 11/02/21 12:02 doxycycline Allergy Intermediate Unknown Verified 11/02/21 12:02 erythromycin base Allergy Intermediate Unknown Verified 11/02/21 12:02 flurbiprofen [Ansaid] Allergy Intermediate Unknown Verified 11/02/21 12:02 tetracycline Allergy Intermediate Unconscious Verified 11/02/21 12:02 tramadol [Ultram] Allergy Intermediate Unknown Verified 11/02/21 12:02 cephalexin Allergy Mild Rash Verified 11/02/21 12:02 ciprofloxacin Allergy Unknown Unknown Verified 11/02/21 12:02 diclofenac Allergy Unknown Unknown Verified 11/02/21 12:02 hydroxyzine Allergy Unknown Unknown Verified 11/02/21 12:02 Penicillins Allergy Unknown Unknown Verified 11/02/21 12:02 propoxyphene Allergy Unknown Unknown Verified 11/02/21 12:02 terfenadine Allergy Unknown Unknown Verified 11/02/21 12:02 butorphanol AdvReac Severe RESTLESSNES Verified 11/02/21 12:02 S cerivastatin AdvReac Severe ABDOMINAL Verified 11/02/21 12:02 PAIN, H/A dexamethasone AdvReac Severe IRRITATED Verified 11/02/21 12:02 EYES duloxetine AdvReac Severe H/A Verified 11/02/21 12:02 enalaprilat AdvReac Severe COUGH Verified 11/02/21 12:02 guaifenesin AdvReac Severe NERVOUSNESS Verified 11/02/21 12:02 hydrocodone AdvReac Severe N/V Verified 11/02/21 12:02
[2021-11-02] MEDS: PANTOPRAZOLE SODIUM IV 40 MG VIAL IV PUSH (13:56)
[2021-11-02] MEDS: MORPHINE SULFATE (*CRX) 2 MG/ML INJ IV PUSH (13:56)
[2021-11-02] MEDS: ONDANSETRON INJ 4 MG/2 ML VIAL IV PUSH (13:56)
--- NOTE | 2021-11-02 14:11 | PC.NURSE ---
Patient off unit to Radiology.
--- NOTE | 2021-11-02 14:14 | ECG_ITS ---
Measurements Intervals [place] Rate: 60 P: 265 NV: 251 QRS: -67 QRSD: 197 T: 108 QT: 525 QTc: 525 Interpretive Statements ELECTRONIC ATRIAL PACEMAKER ELECTRONIC VENTRICULAR PACEMAKER NO FURTHER INTERPRETATION IS POSSIBLE ATYPICAL ECG Electronically Signed On 11-02-2021 18:11:21 METER INSTALLER by Jim Herr D.O.
[2021-11-02 14:37] LABS: Alveolar/Arterial O2 Gradient 19.7 mmHg; Carboxyhemoglobin 0.5 % THb (0-2.0); Fractional Inspired Oxygen 21 %; HCO3 ABG 26.5 mEq/l (22.0-26.0); Methemoglobin ABG 0.1 %THb (0-1.5); Oxygen Content ABG 13.1 %vol (16.0-22.0); Oxygen Saturation ABG 94.6 % (95.0-100.0); Oxyhemoglobin 92.2 % THb (90.0-100.0); PCO2 ABG 46.2 mmHg (35.0-45.0); PO2 ABG 74.7 mmHg (80.0-100.0); PO2 FiO2 Ratio Arterial Blood 3.56 %; Reduced Hemoglobin 7.2 %THb (0-5.0); pH ABG 7.376 (7.350-7.450)
[2021-11-02 14:38] LABS: Modified Allen's Test Pass; Site Drawn LEFT RADIAL
--- NOTE | 2021-11-02 14:59 | PC.NURSE ---
Patient resting in stretcher with call light within reach and SO at the bedside. Patient reports that she has had some improvement in her pain since receiving IV pain medication. VSS. Awaiting results and disposition. Will continue to monitor.
[2021-11-02 15:02] LABS: NT Pro B Type Natriuretic Pept 4290 pg/mL (5-100)
--- NOTE | 2021-11-02 15:40 | PC.NURSE ---
Repeat EKG obtained and given to Dr. Jama for review. Patient appears more confused than when she arrived. Dr. Jama made aware.
[2021-11-02 15:42] LABS: Troponin I < 0.012 ng/mL (0.000-0.034)
[2021-11-02] MEDS: hydrALAZINE HCL 20 MG/ML VIAL 10 MG IV PUSH (15:56)
[2021-11-02] MEDS: DEXTROSE 50% 25 GM/50 ML SYRINGE IV PUSH (16:37)
--- NOTE | 2021-11-02 16:42 | PC.NURSE ---
Pt claalisson and confused. Blood glucose checked with result of 24. Dr. Jama aware and 1 amp Dextrose ordered and administered.
--- NOTE | 2021-11-02 16:55 | PC.NURSE ---
Patients POC glucose rechecked with results of 180. Dr. Jama made updated.
[2021-11-02 16:56] LABS: Glucose Point of Care 24 mg/dl (65-105)
[2021-11-02 16:56] LABS: Glucose Point of Care 180 mg/dl (65-105)
[2021-11-02 17:53] LABS: Glucose Point of Care 153 mg/dl (65-105)
--- NOTE | 2021-11-02 17:53 | PC.NURSE ---
POC blood glucose rechecked with results of 153.
[2021-11-02 18:49] LABS: Glucose Point of Care 145 mg/dl (65-105)
--- NOTE | 2021-11-02 18:49 | PC.NURSE ---
Repeat POC blood glucose obtained with result of 145. Dr. Jama made aware of result.
--- NOTE | 2021-11-02 18:53 | PC.NURSE ---
Patient's states that patient was recently started on 70/30 Insulin and she took 10 units this AM.
--- NOTE | 2021-11-02 19:00 | PC.NURSE ---
Patient transported out of ED on stretcher to room 206-1 via respiratory support technician on manager cardiac. VSS at time of transfer.
--- NOTE | 2021-11-02 19:01 | PM.CNCAR ---
Assessment and Plan Assessment and plan (1) Chest pain: Code(s): R07.9 - Chest pain, unspecified Status: Acute Assessment and Plan: Probably musculoskeletal as it is reproducible by palpation. Troponin negative x 2 sets. EKG shows AV paced rhythm. Obtain echo. (2) Blood in stool: Code(s): K92.1 - Melena Status: Acute Assessment and Plan: GI consulted. (3) CAD (coronary artery disease), autologous vein bypass graft: Code(s): I25.810 - Atherosclerosis of coronary artery bypass graft(s) without angina pectoris Status: Acute (4) Anemia: Code(s): D64.9 - Anemia, unspecified Status: Acute (5) Pacemaker: Code(s): Z95.0 - Presence of cardiac pacemaker Status: Acute Assessment and Plan: [employer] pacemaker is stable. (6) Diastolic dysfunction: Code(s): I51.89 - Other ill-defined heart diseases Status: Acute Assessment and Plan: Mild volume overloaded with small pleural effusions and trace edema of legs. Will need to continue Spironolactone and increase Furosemide dose once GI bleed is determined to be stable. (7) Paroxysmal atrial flutter: Code(s): I48.92 - Unspecified atrial flutter Status: Chronic Assessment and Plan: On Xarelto which is on hold due to GI bleed. [id number] 5. History of Present Illness History of Present Illness Consult date/time: 11/02/21 19:01 Reason for consult: Chest pain. Patient is a 86 yr old woman who presents to ER for evaluation of chest pain. She has a history of CAD, CABG, hypertension, DM, dyslipidemia, [employer] pacemaker, PAT/atrial flutter, Thrombus of left atrial appendage on Xarelto. Patient seen in ER. Reports she noted right sided to mid chest pain started yesterday. She was sleeping and had no pain, but states pain is reproducible by palpation. She reports black stool that turned bright red this morning. EKG: AV paced rhythm. CXR shows Cardiomegaly and small pleural effusions. CT abd shows small pleural effusion with compressive atelectasis. Troponin negative x 2. NTproBNP 4,290. Hb 8.4. Previously, she fell on 04/25/21 and fractured her pelvis and right ribs. It was also found she had NSTEMI and transferred to [facility] and she was there for 4 days. Previously, she was hospitalized for SBO on 10/21/20 and had lysis of adhesions surgery for it. She has lost a lot of weight and has been weak since. Because of weakness she has no appetite or energy to eat. She takes one Ensure a day. She reports PERRY walking minimal distance with her walker. Denies chest pain, orthopnea, palpitations, edema. Cardiovascular Procedures Engine House Helper:: CV Surgery (4 vessel CABG and MV repair at [facility].) - 1995 Echo/MUGA:: 10/21/20 Echo: >70%, mild LVH, diastolic dysfunction (E/e' 20), severe LAE, mod MV thickening and mod MAC, mild MR, RVSP 41 mmHg. 03/31/20 Echo: EF 50-55%, mild LVH ,diastolic dysfunction (E/e' 23), mild biatrial enlargement, mild-mod TR, mild MR. MICHELLE (EF 55-60%, mod LVH, pacemaker leads, mod LAE, MINERVA thrombus, severe MAC, mild MR, mod TR, small atheroma in posterior aortic root.) - 12/26/2017 Echo (EF 55%, paradoxical septal motion, sigmoid hypertrophy, mod MAC, mean gradient 4.5 mmHg, linear artifact in RV suggestive of pacemaker.) - 10/05/2015 Electrophysiology:: 10/21/20 EKG: V. paced rhythm at 73 bpm. 03/30/20 EKG: AV paced rhythm. EKG (Electronic ventricular pacemaker at 70 bpm.) - 06/18/2018 EKG (Atrial flutter/tachycardia with V. rate 90 bpm; 2 V. paced complexes, LBBB.) - 12/11/2017 EKG (Sinus rhythm, LBBB.) - 11/23/2015 EKG (Sinus rhythm, LBBB.) - 09/06/2014 Stress Tests:: MPI (Lexiscan myoview: Negative for ischemia.) - 01/28/2019 MPI (Lexiscan myoview: Negative for ischemia.) - 12/01/2015 Sleep Study (Negative for PAULINE. She had snoring and AHI did not exceed threshold for PAULINE.) - 04/15/2016 Reason For Visit: Colitis,Anemia,Chest Pain,Hypertension
[2021-11-02 19:31] LABS: Glucose Point of Care 122 mg/dl (65-105)
--- NOTE | 2021-11-02 19:44 | ADMGEN ---
This patient, Dinorah Thorpe, was admitted to IMU Room 206-01. Patient/family oriented to hospital policies and general routines including ID bracelet, bed and alarms, visiting hours, pain management, procedures, bathroom and other care routines, personal items, smoking policy, room service/diet, and visiting hours. Information on how to activate the Rapid Response Team has been discussed. Patient/Family are encouraged to report perceived risks to care and to ask questions if they do not understand what they are told or what they should do.
[2021-11-02 20:22] LABS: Hematocrit 29.4 % (37.0-47.0); Hemoglobin 9.2 g/dL (12.0-15.0)
[2021-11-02 20:43] LABS: Troponin I < 0.012 ng/mL (0.000-0.034)
--- NOTE | 2021-11-02 20:47 | PM.IMHP ---
H&P: HPI History of Present Illness Date/Time: 11/02/21 20:47 Chief Complaint: Chest pain abdominal pain GI bleed Narrative: 86 years old female with past medical history of coronary artery disease status post CABG hypertension colitis diabetes presented to the ER with chest pain midsternal radiating to the arm dull in nature started this morning patient also complains of abdominal pain dull in nature generalized associated with blood in the stool CT scan shows colitis also has episode of confusion CT scan of the head was done concern for intermediate age is stroke also patient has episodes of hypoglycemia blood sugar was 24 patient was admitted to the hospital for further evaluation and treatment of chest pain GI bleed colitis intermediate stroke Patient denies any weakness in upper or lower extremities denies any facial asymmetry visual symptoms difficulty with 1 Review of Systems Review of Systems: All systems reviewed & are unremarkable except as noted in HPI and below PMFSH Past Medical History Medical History Cardiomegaly Chronic anemia Chronic anticoagulation 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trial flutter. CKD (chronic kidney disease) stage 3, GFR 30-59 ml/min Closed head injury Congestive heart failure Contusion of right shoulder Coronary artery disease Diabetes type 2, controlled Diarrhea Dysphagia Fall (~07/22/19) History of esophageal dilatation History of pacemaker History of TIA (transient ischemic attack) and stroke Hyperlipidemia associated with type 2 diabetes mellitus Hypertension Hypertension associated with stage 3 chronic kidney disease due to type 2 diabetes mellitus Hyponatremia Hypothyroidism Paroxysmal atrial flutter Peripheral sensory neuropathy due to type 2 diabetes mellitus Rectal bleeding Schatzki's ring of distal esophagus Trigger finger, right middle finger Surgical History Surgical History History of appendectomy History of arthroplasty of right knee History of cholecystectomy History of colonoscopy with polypectomy Last colonoscopy in 01/2020 with descending colon polyp biopsied and showing ulcerated tubulovillous adenoma with high-grade dysplasia. History of mitral valve repair 4 vessel CABG and Mitral Valve Repair at [facility] in 1995. History of phacoemulsification of cataract of both eyes with intraocular lens implantation History of total abdominal hysterectomy and bilateral salpingo-oophorectomy S/P CABG (coronary artery bypass graft) 4 vessel CABG and Mitral Valve Repair at [facility] in 1995. Family History Family History Mother Carcinoma of colon Father Family history of coronary artery disease Father Family history of coronary artery disease Other Heart disease Hypertension Social History Social History Smoking status: Never smoker Second hand tobacco smoke exposure: No Alcohol intake: never Substance use: never Substance use type: does not use Last use: years ago; Additional living arrangements comments: Lives with Gender identity (if verbalized by the patient): Female Sexual Orientation (if Verbalized by the Patient): Straight or Heterosexual Spiritual care concerns: No Meds Home Medications and Allergies Home Medications Medication Instructions Recorded Confirmed Type Ozempic 0.5 mg SUBCUT WEEKLY 10/21/20 11/02/21 History levothyroxine 112 mcg PO DAILY 10/21/20 11/02/21 History pravastatin 20 mg tablet 10 mg PO HS 04/12/21 11/02/21 History furosemide 20 mg PO DAILY 04/15/21 11/02/21 History potassium chloride 10 meq PO DAILY 04/15/21 11/02/21 History Xarelto 15 mg PO QPM 04/29/21 11/02/21 History aspirin 81 mg tablet,delayed 81 mg PO DAILY 08
[2021-11-02 21:02] LABS: Cholesterol 143 mg/dL (0-200); HDL Direct 53 mg/dL; Triglycerides 51 mg/dL (<150)
[2021-11-02 21:13] LABS: LDL Cholesterol Direct 75 mg/dL
[2021-11-02] MEDS: metroNIDAZOLE 500 MG/ISO 100ML 500 MG/100 ML BAG 100 MG IVPB (22:00)
[2021-11-02] MEDS: CIPROFLOXACIN 400 MG/D5W 200ML 200 ML 200 MG IVPB (22:00)
[2021-11-02] MEDS: DEXTROSE 5%/0.45% SOD CHL 1,000 ML 50 ML IV CONT (22:01)
[2021-11-02] MEDS: carvediloL 3.125 MG TABLET PO (22:01)
[2021-11-03] VITALS (12 sets, daily range): BP systolic 114–156; BP diastolic 51–78; PULSE 60–83; RESP 12–16; TEMP 36–37.1; O2SAT 96–99; BMI 19.5
--- NOTE | 2021-11-03 | ECHO_ITS ---
Patient Info Name: Dinorah Thorpe Age: 86 years : 1935 Gender: Female Ht: 64 in Wt: 114 lbs BSA: 1.52 m2 HR: 81 bpm BP: 144 / 55 mmHg Technical Quality: Good Exam Date: 11/03/2021 10:23 AM Exam Location: [facility]am Room: Patient Status: Inpatient Admit Date: 11/02/2021 Staff Ordering Physician: Jim Herr DO Government Affairs Fellow: Danni Wallace RDCS Attending Provider: Karrie Blackmon PA-C Referring Physician: Nemesio CARROLL; Exam Type: CA echo doppler color flow Study Info Indications - CHEST PAIN Complete two-dimensional, color flow and Doppler transthoracic echocardiogram is performed. Summary 1. Complete two-dimensional, color flow and Doppler transthoracic echocardiogram is performed. 2. Left ventricular chamber dimension is mildly enlarged. 3. Ventricular septum is sigmoid shaped. No LVOT obstruction. 4. Left ventricular systolic function is moderately reduced, estimated at 40-45%. 5. Left ventricular septal wall motion is abnormal with septal motion related to bundle branch block. 6. The left ventricular diastolic function is abnormal. 7. E/e' 46 is significantly elevated. 8. Linear artifact in right ventricle suggestive of catheter(s), pacemaker lead(s), or ICD lead(s). 9. Left atrial chamber dimension is severely enlarged. 10. Linear artifact in the right atrium suggestive of catheter(s), pacemaker lead(s), or ICD lead(s). 11. There is mild aortic valve sclerosis. 12. The mitral valve has mildly calcified leaflets and moderately calcified annulus. 13. There is mild to moderate mitral valve regurgitation. 14. There is moderate tricuspid valve regurgitation. 15. Moderate pulmonary hypertension, estimated pulmonary arterial systolic pressure is 52 mmHg. 16. There is trace pulmonic regurgitation. 17. Small atheroma in anterior and posterior aortic root. 18. There is trivial pericardial effusion. Left Ventricle Ventricular septum is sigmoid shaped. No LVOT obstruction. E/e' 46 is significantly elevated. Left ventricular chamber dimension is mildly enlarged. Left ventricular systolic function is moderately reduced, estimated at 40-45%. Left ventricular septal wall motion is abnormal with septal motion related to bundle branch block. The left ventricular diastolic function is abnormal. Right Ventricle Linear artifact in right ventricle suggestive of catheter(s), pacemaker lead(s), or ICD lead(s). Right ventricular chamber dimension is normal. Right ventricular systolic function is normal. Left Atria Left atrial chamber dimension is severely enlarged. Right Atria Linear artifact in the right atrium suggestive of catheter(s), pacemaker lead(s), or ICD lead(s). Right atrial chamber dimension is normal. Aortic Valve The aortic valve is trileaflet. There is mild aortic valve sclerosis. There is no aortic valve stenosis. There is no aortic valve regurgitation. Pulmonic Valve There is trace pulmonic regurgitation. Mitral Valve The mitral valve has mildly calcified leaflets and moderately calcified annulus. There is no mitral valve stenosis. There is mild to moderate mitral valve regurgitation. Tricuspid Valve There is moderate tricuspid valve regurgitation. Moderate pulmonary hypertension, estimated pulmonary arterial systolic pressure is 52 mmHg. Pericardium/Pleural There is trivial pericardial effusion. Inferior Vena Cava Normal inferior vena cava with >50% collapse upon inspiration consiste
[2021-11-03 00:08] LABS: Glucose Point of Care 70 mg/dl (65-105)
--- NOTE | 2021-11-03 02:43 | ECG_ITS ---
Measurements Intervals [place] Rate: 79 P: VA: 0 QRS: -62 QRSD: 182 T: 91 QT: 489 QTc: 564 Interpretive Statements ATRIAL SENSE- ELECTRONIC VENTRICULAR PACEMAKER NO FURTHER INTERPRETATION IS POSSIBLE ATYPICAL ECG Electronically Signed On 11-03-2021 14:02:32 BODY SHOP TECHNICIAN by Jim Herr D.O.
[2021-11-03 05:11] LABS: Basophils Percent Auto 0.5 % (0.2-1.2); Hematocrit 25.7 % (37.0-47.0); Hemoglobin 8.1 g/dL (12.0-15.0); Immature Granulocyte Absolute 0.03 K/mm3 (0.00-0.031); Immature Granulocyte Percent A 0.5 % (0-0.5); Lymphocytes Absolute Auto 1.13 K/mm3 (0.9-3.2); Lymphocytes Percent Auto 19.8 % (18.3-44.2); Mean Corpuscular HGB Conc 31.5 g/dl (32-36); Mean Corpuscular Hemoglobin 30.9 pg (26-34); Mean Corpuscular Volume 98.1 fl (80-100); Mean Platelet Volume 9.8 fl (7.4-10.4); Monocytes Absolute Auto 0.5 K/mm3 (0.1-0.6); Monocytes Percent Auto 9.4 % (2.6-8.5); Neutrophils Percent Auto 69.8 % (45.5-73.1); Platelet Count Result 237 k/mm3 (150-375); Red Blood Count 2.62 M/mm3 (4.2-5.4); Red Cell Distribution Width 16.2 % (11.5-14.5); White Blood Count 5.7 K/mm3 (4.5-10.0)
[2021-11-03 05:25] LABS: Alanine Aminotransferase 20 U/L (4-35); Albumin Level 3.1 g/dL (3.5-5.1); Alkaline Phosphatase 62 U/L (38-126); Anion Gap 4 mmol/L (8-16); Aspartate Amino Transferase 26 U/L (14-36); Bilirubin,Total 0.5 mg/dL (0.2-1.3); Blood Urea Nitrogen 14 mg/dL (7-17); Calcium 8.4 mg/dL (8.4-10.2); Carbon Dioxide 29 mmol/L (22-30); Chloride 103 mmol/L (98-107); Estimated CRCL calculation 42 ml/min; Estimated Glomerular Filt Rate > 60; Glucose 53 mg/dL (65-110); Potassium 3.2 mmol/L (3.4-5.0); Sodium 136 mmol/L (137-145)
[2021-11-03] MEDS: metroNIDAZOLE 500 MG/ISO 100ML 500 MG/100 ML BAG 100 MG IVPB ×3 (05:40→22:14)
[2021-11-03] MEDS: LEVOTHYROXINE SODIUM 112 MCG TABLET PO (05:40)
[2021-11-03] MEDS: DEXTROSE 50% 25 GM/50 ML SYRINGE IV PUSH (05:40)
[2021-11-03 06:14] LABS: Glucose Point of Care 172 mg/dl (65-105)
--- NOTE | 2021-11-03 07:09 | WPDGICN ---
Assessment and Plan Assessment and plan (1) Sigmoiditis: Code(s): K52.9 - Noninfective gastroenteritis and colitis, unspecified Status: Acute Assessment and Plan: she has been on mesalamine 4.8 g per day for several months but symptoms have persisted. She needed to take Imodium also for a while. Although she thinks her symptoms are better the last few days, CT scan she still shows what looks like colitis in the left colon involving now the distal descending and the sigmoid colon. I had a long discussion with the patient and her . I explained that although the findings on her colonoscopy last year were mild she does not seem to have responded to mesalamine. I see for individual visits to the emergency room with rectal bleeding and her blood counts have dropped continuously. 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 Her hemoglobin was 11.4 in July 10.6 in September 19 0.0 October 22 and now down to 8.1. (3) Blood in stool: Code(s): K92.1 - Melena Status: Acute Assessment and Plan: since her diagnosis of sigmoiditis last April, she has had 4 visits to the emergency room with complaints of rectal bleeding including July 07, July 13 of September 13 and October 22 in addition to a couple hospitalizations. She thinks her bleeding has decreased although at this time anticoagulant has been held. Because of persistent changes on her CT and dropping counts I will schedule her for colonoscopy to be done tomorrow (4) A-fib: Code(s): I48.91 - Unspecified atrial fibrillation Status: Chronic Assessment and Plan: She has a history of having atrial flutter and atrial fibrillation for which reason she is anticoagulated. (5) Congestive heart failure: Qualifiers: Heart failure chronicity: chronic Heart failure type: unspecified Qualified Code(s): I50.9 - Heart failure, unspecified Code(s): I50.9 - Heart failure, unspecified Status: Chronic Assessment and Plan: She has had a mitral valve repair, 4 vessel coronary artery bypass graft GI Consult Note Consult date/time: 11/03/21 07:09 HPI: Dinorah Thorpe is a 86 year old female Was known to our service. She has been followed by Dr. Carranza for colitis that developed last summer. She initially did not seem to respond to mesalamine products but she states that now she has been doing much better. Her stools are much less frequent no longer watery. Also bleeding that she was experiencing has stopped. She came in yesterday because of severe chest pain. She does not recall much of the occurrences of gastric because she stubbed states that she was a bit out of it. Apparently her blood sugar was low at that time. The pain is better today. She denies vomiting or nausea and does not feel that this is heartburn. She has been seen by Cardiology who feels that her pain is probably not cardiac. She has had Lexiscan test in the past, most recently 2 years ago which were negative. She does have a history of coronary artery bypass grafting at [facility]. She is chronically anticoagulated having history of atrial flutter and atrial appendage thrombus. She is scheduled for cardiac echo today. 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 CKD (chronic kidney disease)
--- NOTE | 2021-11-03 07:32 | PM.PNCARD ---
Progress Note: A&P Assessment and Plan (1) Chest pain: Code(s): R07.9 - Chest pain, unspecified Status: Acute Assessment and Plan: Probably musculoskeletal as it is reproducible by palpation. GA has been ruled out by Troponin negative x 3 sets. EKG shows AV paced rhythm. Obtain echo today. (2) Blood in stool: Code(s): K92.1 - Melena Status: Acute Assessment and Plan: GI consulted. (3) CAD (coronary artery disease), autologous vein bypass graft: Code(s): I25.810 - Atherosclerosis of coronary artery bypass graft(s) without angina pectoris Status: Acute (4) Anemia: Code(s): D64.9 - Anemia, unspecified Status: Acute Assessment and Plan: Keep Hb >8 gms. (5) Pacemaker: Code(s): Z95.0 - Presence of cardiac pacemaker Status: Acute Assessment and Plan: [employer] pacemaker is stable. (6) Diastolic dysfunction: Code(s): I51.89 - Other ill-defined heart diseases Status: Acute Assessment and Plan: Mild volume overloaded with small pleural effusions and trace edema of legs. Will need to continue Spironolactone and Furosemide dose once GI bleed is determined to be stable. Replete potassium. (7) Paroxysmal atrial flutter: Code(s): I48.92 - Unspecified atrial flutter Status: Chronic Assessment and Plan: On Xarelto which is on hold due to GI bleed. [id number] 5. Subjective Date/time seen: 11/03/21 07:32 Denies sob. Has reproducible chest pain with palpation. Exam Const: General: cooperative, healthy appearing and comfortable Resp: Auscultation: clear to auscultation bilaterally, no crackles, no rales, no rhonchi and no wheezes Cardio: Jugular venous distension: no JVD Rate: regular rate Rhythm: regular rhythm Heart sounds: no murmurs Peripheral pulses: dorsalis pedis present GI: GI Palp: No abdominal tenderness and Yes Soft to palpation Neuro: General: oriented to person, oriented to place and oriented to time Extrem: Right lower extremity: edema Left lower extremity: edema Other: Trace edema of both legs Objective Data Vital Signs Vital Signs: Vital Signs - 24 hr 11/02/21 11:54 11/02/21 11:59 11/02/21 12:00 Temperature 98.3 F Pulse Rate 82 101 H 87 Respiratory Rate 118 H 14 16 Blood Pressure 146/60 H Pulse Oximetry 99 80 L 100 11/02/21 12:01 11/02/21 12:15 11/02/21 12:25 Temperature Pulse Rate 67 71 67 Respiratory Rate 17 13 17 Blood Pressure 143/60 H 134/53 L Pulse Oximetry 100 100 100 11/02/21 12:30 11/02/21 12:31 11/02/21 12:32 Temperature Pulse Rate 64 65 65 Respiratory Rate 16 16 15 Blood Pressure 129/52 L Pulse Oximetry 100 100 100 11/02/21 12:34 11/02/21 12:45 11/02/21 12:46 Temperature Pulse Rate 71 68 70 Respiratory Rate 17 16 Blood Pressure 176/65 H Pulse Oximetry 100 100 11/02/21 13:00 11/02/21 13:02 11/02/21 13:03 Temperature Pulse Rate 70 71 72 Respiratory Rate 17 17 19 Blood Pressure 112/94 H Pulse Oximetry 100 100 100 11/02/21 13:15 11/02/21 13:17 11/02/21 13:34 Temperature Pulse Rate 70 69 71 Respiratory Rate 17 22 H 23 H Blood Pressure 177/87 H Pulse Oximetry 100 100 99 11/02/21 13:42 11/02/21 13:45 11/02/21 13:46 Temperature Pulse Rate 73 74 Respiratory Rate 22 H 23 H Blood Pressure Pulse Oximetry 98 99 99 11/02/21 13:47 11/02/21 14:01 11/02/21 14:24 Temperature Pulse Rate 72 71 Respiratory Rate 16 Blood Pressure Pulse Oximetry 100 99 11/02/21 14:30 11/02/21 14:39 11/02/21 14:45 Temperature Pulse Rate 69 68 67 Respiratory Rate Blood Pressure 162/91 H Pulse Oximetry 98 100 11/02/21 14:46 11/02/21 14:47 11/02/21 15:00 Temperature Pulse Rate 66 64 61 Respiratory Rate 20 Blood Pressure 187/83 H Pulse Oximetry 11/02/21 15:01 11/02/21 15:16 11/02/21 15:17 Temperature Pulse Rate 62 60 60 Respiratory Rate 23 H 19 19
[2021-11-03 08:13] LABS: Glucose Point of Care 130 mg/dl (65-105)
[2021-11-03 08:48] LABS: Hematocrit 28.7 % (37.0-47.0); Hemoglobin 8.9 g/dL (12.0-15.0)
[2021-11-03] MEDS: carvediloL 3.125 MG TABLET PO ×2 (08:48→20:11)
[2021-11-03] MEDS: PANTOPRAZOLE SODIUM IV 40 MG VIAL IV PUSH ×2 (08:49→16:59)
[2021-11-03 08:55] LABS: Anion Gap 6 mmol/L (8-16); Blood Urea Nitrogen 12 mg/dL (7-17); Calcium 8.8 mg/dL (8.4-10.2); Carbon Dioxide 29 mmol/L (22-30); Chloride 101 mmol/L (98-107); Estimated CRCL calculation 42 ml/min; Estimated Glomerular Filt Rate > 60; Glucose 113 mg/dL (65-110); Potassium 3.8 mmol/L (3.4-5.0); Sodium 136 mmol/L (137-145)
--- NOTE | 2021-11-03 11:01 | PM.IMPN ---
Progress Note: A&P Assessment and Plan (1) Chest pain: Code(s): R07.9 - Chest pain, unspecified Status: Acute Assessment and Plan: -trop x3 negative -EKG shows AV paced rhythm -no pain at rest, only has pain with palpation of abdomen and chest wall -seen by cardiology who feels this is likely musculoskeletal -going for echo today (2) Anemia: Code(s): D64.9 - Anemia, unspecified Status: Acute Assessment and Plan: -8.4 on admission, has been stable since that time -prior labs a bit all over the place but it does appear she has a chronic anemia -check fecal occult -GI consult -start IV Protonix as she has history of GERD (3) Diabetes mellitus: Code(s): E11.9 - Type 2 diabetes mellitus without complications Status: Acute Assessment and Plan: -Complicated with hypoglycemia likely secondary to being NPO -Started D5/0.45 normal saline -accuchecks ACHS, hypoglycemic protocol, and SS insulin (4) Hypertension: Code(s): I10 - Essential (primary) hypertension Status: Acute Assessment and Plan: -continue home meds -P.r.n. hydralazine with parameters (5) Paroxysmal atrial flutter: Code(s): I48.92 - Unspecified atrial flutter Status: Chronic Assessment and Plan: -Hold anticoagulation due to anemia, possible GI bleed? -Resume Coreg (6) Congestive heart failure: Qualifiers: Heart failure chronicity: chronic Heart failure type: unspecified Qualified Code(s): I50.9 - Heart failure, unspecified Code(s): I50.9 - Heart failure, unspecified Status: Chronic Assessment and Plan: -Monitor closely for fluid overload hold diuresis -cardiology rounding (7) GERD (gastroesophageal reflux disease): Qualifiers: Esophagitis presence: without esophagitis Qualified Code(s): K21.9 - Gastro-esophageal reflux disease without esophagitis Code(s): K21.9 - Gastro-esophageal reflux disease without esophagitis Status: Acute Assessment and Plan: -PPI (8) Acute encephalopathy: Code(s): G93.40 - Encephalopathy, unspecified Status: Acute Assessment and Plan: -likely multifactorial in nature, hypoglycemia vs infection/colitis, vs hospital delirium -hold narcotics/benzos/sedating medications -CT head with hypoattenuation in the periventricular white matter of the left frontal lobe, consistent with age-indeterminate infarct -cannot get MRI as patient has a pacemaker, will do CTA head/neck -neurology not on this week for consult, will consider transfer/outside consult pending CTA -seems to have resolved at this time (9) Hypoglycemia: Code(s): E16.2 - Hypoglycemia, unspecified Status: Acute Assessment and Plan: -unclear etiology but most likely due to being NPO -on D5/.45% NS -accuchecks and hypoglycemic protocol (10) Colitis: Code(s): K52.9 - Noninfective gastroenteritis and colitis, unspecified Status: Acute Assessment and Plan: -developed last summer, followed by GI outpatient -has been responding to mesalamine, stools less frequent and less watery, bleeding has resolved -on IV zosyn -GI not planning any interventions today, pain is better -appreciate and additional GI recommendations Additional Plan DVT prophylaxis SCD Subjective Date/time seen: 11/03/21 11:01 Interval history: 85-year-old female with past medical history significant for atrial flutter, pacemaker insitu, as per last echo performed in 1 year ago patient with ejection fraction estimated at 70%, chronic anticoagulation, chronic kidney disease, coronary artery disease, type 2 diabetes mellitus, Schatzki's ring of the esophagus, dyslipidemia, TIA, admitted to the hospital for chest pain and abdominal pain. Today patient states she has no pain currently unless you press on her abdomen or chest wall. Luis Felipe
--- NOTE | 2021-11-03 11:54 | PCCCNOTE ---
On 11/03/21, the student, [Fawn Irby ], provided care and [facility]. I have reviewed the student's documentation and agree with the findings.
[2021-11-03 13:00] LABS: CRP < 0.5 mg/dL (<1.0)
[2021-11-03 13:18] LABS: Glucose Point of Care 97 mg/dl (65-105)
[2021-11-03] MEDS: PRAVASTATIN SODIUM 20 MG TABLET PO (14:01)
[2021-11-03] MEDS: BISACODYL 5 MG TABLET EC 10 MG PO ×2 (15:26→20:11)
[2021-11-03] MEDS: polyethylene glycoL 3350 238 GM BOTTLE PO (15:27)
[2021-11-03 16:59] LABS: Glucose Point of Care 366 mg/dl (65-105)
[2021-11-03] MEDS: INSULIN ASPART (*BKC) 100 UNITS/ML SUB-Q (16:59)
[2021-11-03 17:00] LABS: Glucose Point of Care 312 mg/dl (65-105)
--- NOTE | 2021-11-03 17:30 | PC.NURSE ---
This patient, Dinorah Thorpe, was received from IMU on 11/03/21 at 1834. Patient/family oriented to unit policies and routines. Report received from SALVADOR Edwards.
[2021-11-03 21:04] LABS: Hematocrit 27.5 % (37.0-47.0); Hemoglobin 8.4 g/dL (12.0-15.0)
[2021-11-03 22:25] LABS: Glucose Point of Care 154 mg/dl (65-105)
[2021-11-04] VITALS (18 sets, daily range): BP systolic 129–174; BP diastolic 51–81; PULSE 60–85; RESP 14–20; TEMP 36.2–37.3; O2SAT 98–100
--- NOTE | 2021-11-04 | ECHO_ITS ---
Patient Info Name: Dinorah Thorpe Age: 86 years : 1935 Gender: Female Ht: 64 in Wt: 110 lbs BSA: 1.49 m2 HR: 63 bpm Technical Quality: Good Exam Date: 11/04/2021 11:25 AM Exam Location: [facility] Pulmonary Patient Status: Inpatient Admit Date: 11/02/2021 Staff Ordering Physician: Karrie Blackmon PA-C Export Freight Clerk: Sebastien Marcial RDCS, RT Attending Provider: Karrie Blackmon PA-C Referring Physician: Neymar LOMAS; Exam Type: CA echo limited w bubble study Study Info Indications I63.219 - Cerebral infarction due to unspecified occlusion or stenosis of unspecified vertebral arteries Limited two-dimensional transthoracic echocardiogram is performed with agitated saline. Summary 1. Limited echocardiogram to assess atrial septum. 2. Agitated saline injection with and without valsalva maneuver opacified right sided cardiac chambers without shunt to left sided cardiac chambers. 3. Intact interatrial septum visualized by agitated saline imaging. Atrial Septum Limited echocardiogram to assess atrial septum. Agitated saline injection with and without valsalva maneuver opacified right sided cardiac chambers without shunt to left sided cardiac chambers. Intact interatrial septum visualized by agitated saline imaging. Report Signatures
[2021-11-04] MEDS: BISACODYL 5 MG TABLET EC 10 MG PO (02:16)
[2021-11-04] MEDS: DEXTROSE 5%/0.45% SOD CHL 1,000 ML 50 ML IV CONT (02:19)
[2021-11-04] MEDS: LEVOTHYROXINE SODIUM 112 MCG TABLET PO (05:44)
[2021-11-04] MEDS: metroNIDAZOLE 500 MG/ISO 100ML 500 MG/100 ML BAG 100 MG IVPB ×3 (05:45→21:37)
[2021-11-04 06:13] LABS: Basophils Percent Auto 0.4 % (0.2-1.2); Hematocrit 26.4 % (37.0-47.0); Hemoglobin 8.3 g/dL (12.0-15.0); Immature Granulocyte Absolute 0.02 K/mm3 (0.00-0.031); Immature Granulocyte Percent A 0.4 % (0-0.5); Lymphocytes Absolute Auto 1.13 K/mm3 (0.9-3.2); Lymphocytes Percent Auto 20.3 % (18.3-44.2); Mean Corpuscular HGB Conc 31.4 g/dl (32-36); Mean Corpuscular Hemoglobin 30.7 pg (26-34); Mean Corpuscular Volume 97.8 fl (80-100); Mean Platelet Volume 9.9 fl (7.4-10.4); Monocytes Absolute Auto 0.5 K/mm3 (0.1-0.6); Monocytes Percent Auto 9.5 % (2.6-8.5); Neutrophils Absolute Auto 3.9 K/mm3 (1.3-6.7); Neutrophils Percent Auto 69.4 % (45.5-73.1); Platelet Count Result 235 k/mm3 (150-375); Red Cell Distribution Width 16.4 % (11.5-14.5); White Blood Count 5.6 K/mm3 (4.5-10.0)
[2021-11-04 06:23] LABS: Alanine Aminotransferase 27 U/L (4-35); Alkaline Phosphatase 58 U/L (38-126); Anion Gap 4 mmol/L (8-16); Aspartate Amino Transferase 31 U/L (14-36); Bilirubin,Total 0.5 mg/dL (0.2-1.3); Blood Urea Nitrogen 8 mg/dL (7-17); Calcium 8.3 mg/dL (8.4-10.2); Carbon Dioxide 27 mmol/L (22-30); Chloride 106 mmol/L (98-107); Estimated CRCL calculation 41 ml/min; Estimated Glomerular Filt Rate > 60; Glucose 104 mg/dL (65-110); Potassium 2.9 mmol/L (3.4-5.0); Sodium 137 mmol/L (137-145)
--- NOTE | 2021-11-04 07:12 | PM.PNCARD ---
Progress Note: A&P Assessment and Plan (1) Chest pain: Code(s): R07.9 - Chest pain, unspecified Status: Acute Assessment and Plan: Probably musculoskeletal as it is reproducible by palpation. SC has been ruled out by Troponin negative x 3 sets. EKG shows AV paced rhythm. (2) Blood in stool: Code(s): K92.1 - Melena Status: Acute Assessment and Plan: GI consulted. (3) CAD (coronary artery disease), autologous vein bypass graft: Code(s): I25.810 - Atherosclerosis of coronary artery bypass graft(s) without angina pectoris Status: Acute (4) Anemia: Code(s): D64.9 - Anemia, unspecified Status: Acute Assessment and Plan: Keep Hb >8 gms. (5) Pacemaker: Code(s): Z95.0 - Presence of cardiac pacemaker Status: Acute Assessment and Plan: [employer] pacemaker is stable. (6) Diastolic dysfunction: Code(s): I51.89 - Other ill-defined heart diseases Status: Acute Assessment and Plan: Mild volume overloaded with small pleural effusions and trace edema of legs. Will need to continue Spironolactone and Furosemide dose once GI bleed is determined to be stable. Replete potassium. (7) Paroxysmal atrial flutter: Code(s): I48.92 - Unspecified atrial flutter Status: Chronic Assessment and Plan: On Xarelto which is on hold due to GI bleed. [id number] 5. (8) Systolic dysfunction: Code(s): I51.9 - Heart disease, unspecified Status: Acute Assessment and Plan: 11/03/21 Echo: EF 40-45%, mild LVE, diastolic dysfunction (E/e' 46), severe LAE, mild-mod MR, mod TR, RVSP 52 mmHg, trace pericardial effusion. On Coreg. Resume Losartan. (9) Acute encephalopathy: Code(s): G93.40 - Encephalopathy, unspecified Status: Acute Assessment and Plan: CTA brain/neck shows several left frontal hypodensities suspicious for acute infarcts; carotid duplex with 0% bilateral stenosis. Patient was on Xarelto but was held for a couple of days for possible GI bleed. If no GI bleed, then need to resume anticoagulation with Eliquis 2.5 mg BID or Pradaxa 75 mg BID given she was on Xarelto 15 mg daily and had possible strokes with it. Subjective Date/time seen: 11/04/21 07:12 Denies chest pain or sob this morning. Exam Const: General: cooperative, healthy appearing and comfortable Resp: Auscultation: clear to auscultation bilaterally, no crackles, no rales, no rhonchi and no wheezes Cardio: Jugular venous distension: no JVD Rate: regular rate Rhythm: regular rhythm Heart sounds: no murmurs Peripheral pulses: dorsalis pedis present GI: GI Palp: No abdominal tenderness and Yes Soft to palpation Neuro: General: oriented to person, oriented to place and oriented to time Extrem: Right lower extremity: edema Left lower extremity: edema Other: Trace edema of both legs Objective Data Vital Signs Vital Signs: Vital Signs - 24 hr 11/03/21 08:00 11/03/21 10:00 11/03/21 12:00 Temperature 98.7 F 97.3 F L Pulse Rate 67 75 76 Respiratory Rate 12 Blood Pressure 114/53 L 146/78 H Pulse Oximetry 99 98 11/03/21 16:00 11/03/21 18:40 11/03/21 20:00 Temperature 97.2 F L 97.6 F Pulse Rate 69 65 83 Respiratory Rate 14 Blood Pressure 156/56 H 147/56 H Pulse Oximetry 96 99 11/03/21 20:02 11/03/21 20:11 11/03/21 20:13 Temperature 98.3 F Pulse Rate 66 66 Respiratory Rate 15 Blood Pressure 138/51 L Pulse Oximetry 97 98 11/04/21 00:00 11/04/21 04:00 Temperature 97.7 F 97.9 F Pulse Rate 60 64 Respiratory Rate 16 17 Blood Pressure 149/60 H 129/60 Pulse Oximetry 100 98 Intake/Output Intake/Output: Intake & Output 11/01/21 11/02/21 11/03/21 11/04/21 23:59 23:59 23:59 23:59 Intake Total 300 1830 1660 Output Total 1800 Balance 255 13 3113 Meds/Results Medications: Active Medications Generic Name Dose Route Start Last Admin Trade Name Freq PRN Reason St
[2021-11-04 08:13] LABS: Glucose Point of Care 110 mg/dl (65-105)
[2021-11-04] MEDS: POTASSIUM CHLORIDE INJ 40 MEQ in SODIUM CHLORIDE 0.9% IV 500 ML 130 MEQ IVPB (08:23)
[2021-11-04] MEDS: carvediloL 3.125 MG TABLET PO ×2 (08:26→21:41)
[2021-11-04] MEDS: LOSARTAN POTASSIUM 50 MG TABLET PO (08:26)
[2021-11-04] MEDS: PANTOPRAZOLE SODIUM IV 40 MG VIAL IV PUSH ×2 (08:28→17:09)
[2021-11-04] MEDS: MAGNESIUM CITRATE 300 ML BTL 150 ML PO (08:35)
--- NOTE | 2021-11-04 08:49 | PM.IMPN ---
Progress Note: A&P Assessment and Plan (1) Stroke: Code(s): I63.9 - Cerebral infarction, unspecified Status: Acute Assessment and Plan: -CT head with hypoattenuation in the periventricular white matter of the left frontal lobe, consistent with age-indeterminate infarct -cannot get MRI as patient has a pacemaker -CTA shows several several left frontal lobe white matter hypodensities suspicious for acute infarctions. 0% stenosis bilateral carotids. -No neuro irrigation service technician this week -echo reviewed, will add bubble study -Discussed case with attending physician. Aspirin was held at this time as she is being taken to GI lab for scopes due to anemia and possible GI bleed. She was on xaralto and a baby aspirin prior to arrival at the hospital. Both have been held during admission. Will discuss anti coagulation options pending findings of the scopes. (2) Acute encephalopathy: Code(s): G93.40 - Encephalopathy, unspecified Status: Acute Assessment and Plan: -see above (3) Chest pain: Code(s): R07.9 - Chest pain, unspecified Status: Acute Assessment and Plan: -trop x3 negative -EKG shows AV paced rhythm -no pain at rest, only has pain with palpation of abdomen and chest wall -seen by cardiology who feels this is likely musculoskeletal -echo reviewed, bubble study ordered for today (4) Anemia: Code(s): D64.9 - Anemia, unspecified Status: Acute Assessment and Plan: -8.4 on admission, has been stable since that time -prior labs a bit all over the place but it does appear she has a chronic anemia -check fecal occult -check iron studies -GI consult -start IV Protonix as she has history of GERD (5) Diabetes mellitus: Code(s): E11.9 - Type 2 diabetes mellitus without complications Status: Acute Assessment and Plan: -Complicated with hypoglycemia likely secondary to being NPO -Started D5/0.45 normal saline -accuchecks ACHS, hypoglycemic protocol, and SS insulin (6) Hypertension: Code(s): I10 - Essential (primary) hypertension Status: Acute Assessment and Plan: -continue home meds -P.r.n. hydralazine with parameters (7) Paroxysmal atrial flutter: Code(s): I48.92 - Unspecified atrial flutter Status: Chronic Assessment and Plan: -Hold anticoagulation due to anemia, possible GI bleed? -Resume Coreg (8) Congestive heart failure: Qualifiers: Heart failure type: unspecified Heart failure chronicity: chronic Qualified Code(s): I50.9 - Heart failure, unspecified Code(s): I50.9 - Heart failure, unspecified Status: Chronic Assessment and Plan: -Monitor closely for fluid overload hold diuresis -echo reviewed -does have mild LE edema, venous dopplers negative -cardiology rounding (9) GERD (gastroesophageal reflux disease): Qualifiers: Esophagitis presence: without esophagitis Qualified Code(s): K21.9 - Gastro-esophageal reflux disease without esophagitis Code(s): K21.9 - Gastro-esophageal reflux disease without esophagitis Status: Acute Assessment and Plan: -PPI (10) Hypoglycemia: Code(s): E16.2 - Hypoglycemia, unspecified Status: Acute Assessment and Plan: -unclear etiology but most likely due to being NPO -on D5/.45% NS -accuchecks and hypoglycemic protocol (11) Colitis: Code(s): K52.9 - Noninfective gastroenteritis and colitis, unspecified Status: Acute Assessment and Plan: -developed last summer, followed by GI outpatient -has been responding to mesalamine, stools less frequent and less watery, bleeding has resolved -on IV zosyn -GI not planning any interventions today, pain is better -appreciate and additional GI recommendations (12) Hypokalemia: Code(s): E87.6 - Hypokalemia Status: Resolved [place]
[2021-11-04 12:00] LABS: Glucose Point of Care 143 mg/dl (65-105)
--- NOTE | 2021-11-04 12:06 | PC.NURSE ---
Pt to GI lab per stretcher 11/04/21 1200.
[2021-11-04] MEDS: LACTATED RINGERS 1,000 ML 150 ML IV CONT (12:19)
--- NOTE | 2021-11-04 12:19 | WPDANESEPPF ---
Anes - Initial Pre Proc Eval Procedure: Operation Date: 11/04/21 13:00 Proposed Procedures p Colonoscopy - Ulysses Duran MD Date/Time: 11/04/21 12:19 Surgeon: Karrie Blackmon PA-C Pre Op Diagnosis: Colitis,Anemia,Chest Pain,Hypertension Patient Data Age: 86 Gender: F Height: 1.63 m Weight: 50.3 kg Last Vital Signs Temp 36.7 C 11/04/21 12:04 Pulse 67 11/04/21 12:04 Resp 18 11/04/21 12:04 BP 165/81 H 11/04/21 12:04 Pulse Ox 100 11/04/21 12:04 Allergies Allergy/AdvReac Type Severity Reaction Status Date / Time adhesive tape Allergy Severe BLISTERS Verified 11/02/21 12:02 amiodarone Allergy Severe N/V, Verified 11/02/21 12:02 HEADACHE, HOSPITALIZED atorvastatin Allergy Severe SWELLING Verified 11/02/21 12:02 clindamycin Allergy Severe TACHYCARDIA Verified 11/02/21 12:02 gabapentin Allergy Severe CHF Verified 11/02/21 12:02 gemfibrozil Allergy Severe ELEVATED Verified 11/02/21 12:02 CHOLESTEROL nifedipine Allergy Severe SWELLING Verified 11/02/21 12:02 norfloxacin Allergy Severe SWELLING Verified 11/02/21 12:02 adhesive Allergy Intermediate Unknown Verified 11/02/21 12:02 chlorpheniramine [Ornade] Allergy Intermediate Unknown Verified 11/02/21 12:02 doxycycline Allergy Intermediate Unknown Verified 11/02/21 12:02 erythromycin base Allergy Intermediate Unknown Verified 11/02/21 12:02 flurbiprofen [Ansaid] Allergy Intermediate Unknown Verified 11/02/21 12:02 tetracycline Allergy Intermediate Unconscious Verified 11/02/21 12:02 tramadol [Ultram] Allergy Intermediate Unknown Verified 11/02/21 12:02 cephalexin Allergy Mild Rash Verified 11/02/21 12:02 ciprofloxacin Allergy Unknown Unknown Verified 11/02/21 12:02 diclofenac Allergy Unknown Unknown Verified 11/02/21 12:02 hydroxyzine Allergy Unknown Unknown Verified 11/02/21 12:02 Penicillins Allergy Unknown Unknown Verified 11/02/21 12:02 propoxyphene Allergy Unknown Unknown Verified 11/02/21 12:02 terfenadine Allergy Unknown Unknown Verified 11/02/21 12:02 butorphanol AdvReac Severe RESTLESSNES Verified 11/02/21 12:02 S cerivastatin AdvReac Severe ABDOMINAL Verified 11/02/21 12:02 PAIN, H/A dexamethasone AdvReac Severe IRRITATED Verified 11/02/21 12:02 EYES duloxetine AdvReac Severe H/A Verified 11/02/21 12:02 enalaprilat AdvReac Severe COUGH Verified 11/02/21 12:02 guaifenesin AdvReac Severe NERVOUSNESS Verified 11/02/21 12:02 hydrocodone AdvReac Severe N/V Verified 11/02/21 12:02 isosorbide AdvReac Severe H/A Verified 11/02/21 12:02 levofloxacin AdvReac Severe VOMITING Verified 07/22/21 13:03 meperidine AdvReac Severe H/A Verified 11/02/21 12:02 nitroglycerin AdvReac Severe VOMITING Verified 11/02/21 12:02 oxycodone AdvReac Severe VOMITING Verified 11/02/21 12:02 phenylephrine AdvReac Severe NERVOUSNESS Verified 11/02/21 12:02 phenylpropanolamine AdvReac Severe NERVOUSNESS Verified 11/02/21 12:02 prednisone AdvReac Severe H/A Verified 11/02/21 12:02 rofecoxib AdvReac Severe UPSET Verified 11/02/21 12:03 STOMACH, CAN TAKE WITH MEALS tobramycin AdvReac Severe IRRITATED Verified 11/02/21 12:02 EYES codeine AdvReac Intermediate Tired Verified 11/02/21 12:02 Home Medications Medication Instructions Recorded Confirmed Type Ozempic 0.5 mg SUBCUT WEEKLY 10/21/20 11/02/21 History levothyroxine 112 mcg PO DAILY 10/21/20 11/02/21 History pravastatin 20 mg tablet 10 mg PO HS 04/12/21 11/02/21 History furosemide 20 mg PO DAILY 04/15/21 11/02/21 History potassium chloride 10 meq PO DAILY 04/15/21 11/02/21 History Xarelto 15 mg PO QPM 04/29/21 11/02/21 History aspirin 81 mg tablet,delayed 81 mg PO DAILY 05/10/21 11/02/21 History release spironolactone 25 mg PO DAILY 07/04/21 11/02/21 History duloxetine 20 mg PO HS 07/07/21 11/02/21 History lidocaine [Aspercreme (lidocaine 1 patch TOPICAL DAILY PRN 07/07/21 11/02/21 History HCl)] losartan 50 mg PO DAILY 07/07/21 11/02/21 History multivitamin 1 tablet PO D
[2021-11-04] MEDS: SIMETHICONE ORAL SUSPENSION 20 MG/0.3 ML 30 ML BOTTLE 0.6 ML PO (13:07)
[2021-11-04 13:34] LABS: Glucose Point of Care 132 mg/dl (65-105)
--- NOTE | 2021-11-04 13:56 | PC.NURSE ---
Pt return from GI lab per stretcher 11/04/21 [id number].
[2021-11-04] MEDS: POTASSIUM CHLORIDE 20 MEQ TABLET.ER 40 MEQ PO ×2 (14:10→17:09)
[2021-11-04] MEDS: PRAVASTATIN SODIUM 20 MG TABLET PO (14:10)
[2021-11-04 16:53] LABS: Glucose Point of Care 155 mg/dl (65-105)
[2021-11-04] MEDS: RIVAROXABAN 15 MG TABLET PO (17:09)
[2021-11-04 21:23] LABS: Hematocrit 27.3 % (37.0-47.0); Hemoglobin 8.3 g/dL (12.0-15.0)
[2021-11-05] VITALS (19 sets, daily range): BP systolic 151–176; BP diastolic 55–90; PULSE 62–96; RESP 14–21; TEMP 36.1–36.8; O2SAT 97–100
[2021-11-05 00:09] LABS: Glucose Point of Care 256 mg/dl (65-105)
--- NOTE | 2021-11-05 03:13 | ECG_ITS ---
Measurements Intervals [place] Rate: 68 P: CO: 0 QRS: -73 QRSD: 174 T: 103 QT: 448 QTc: 478 Interpretive Statements ATRIAL SENSE- ELECTRONIC VENTRICULAR PACEMAKER NO FURTHER INTERPRETATION IS POSSIBLE ATYPICAL ECG Electronically Signed On 11-05-2021 6:57:07 BELT SEWER by Jim Herr D.O.
[2021-11-05] MEDS: DEXTROSE 5%/0.45% SOD CHL 1,000 ML 50 ML IV CONT (03:21)
[2021-11-05] MEDS: NITROGLYCERIN SL 0.4 MG TABLET SUBLINGUAL (04:13)
--- NOTE | 2021-11-05 04:32 | PC.NURSE ---
Dr Herr notified pt had irregular tachycardia up to 160bpm and symptomatic SOB persisting for about an hour ending at 0340. Provider notified pt is having chest heaviness but no longer having SOB or irregular tachycardia, rhythm stable paced 60s at time of call. Order received to give x1 nitro and transfer to IMU for amiodarone, informed pt has allergy to both medications but ordered to attempt medications as potential benefits outweigh potential risks.
--- NOTE | 2021-11-05 05:14 | PC.NURSE ---
Pt transferred to IMU 211 by bed, all belongings transferred with patient. Report given to Tracee FRANCO.
--- NOTE | 2021-11-05 05:15 | PC.NURSE ---
This patient, Dinorah Thorpe, was received from [[id number] ] on 11/05/21 at 0515. Patient/family oriented to unit policies and routines
[2021-11-05] MEDS: AMIODARONE 360 MG/D5W 200 ML 360 MG/200 ML BAG 33.33 MG IV CONT (06:25)
[2021-11-05] MEDS: metroNIDAZOLE 500 MG/ISO 100ML 500 MG/100 ML BAG 100 MG IVPB ×3 (06:26→21:30)
[2021-11-05] MEDS: LEVOTHYROXINE SODIUM 112 MCG TABLET PO (06:27)
[2021-11-05 06:49] LABS: Basophils Percent Auto 0.5 % (0.2-1.2); Eosinophils Absolute Auto 0.2 K/mm3 (0-0.3); Eosinophils Percent Auto 2.8 % (0-4.4); Hemoglobin 9.1 g/dL (12.0-15.0); Immature Granulocyte Absolute 0.04 K/mm3 (0.00-0.031); Immature Granulocyte Percent A 0.7 % (0-0.5); Lymphocytes Absolute Auto 1.17 K/mm3 (0.9-3.2); Lymphocytes Percent Auto 19.3 % (18.3-44.2); Mean Corpuscular HGB Conc 30.3 g/dl (32-36); Mean Corpuscular Hemoglobin 30.7 pg (26-34); Mean Corpuscular Volume 101.4 fl (80-100); Mean Platelet Volume 9.7 fl (7.4-10.4); Monocytes Absolute Auto 0.5 K/mm3 (0.1-0.6); Monocytes Percent Auto 8.7 % (2.6-8.5); Neutrophils Absolute Auto 4.1 K/mm3 (1.3-6.7); Platelet Count Result 269 k/mm3 (150-375); Red Blood Count 2.96 M/mm3 (4.2-5.4); Red Cell Distribution Width 16.2 % (11.5-14.5); White Blood Count 6.1 K/mm3 (4.5-10.0)
[2021-11-05 07:08] LABS: Alanine Aminotransferase 25 U/L (4-35); Albumin Level 3.4 g/dL (3.5-5.1); Alkaline Phosphatase 66 U/L (38-126); Anion Gap 4 mmol/L (8-16); Aspartate Amino Transferase 26 U/L (14-36); Bilirubin,Total 0.4 mg/dL (0.2-1.3); Blood Urea Nitrogen 7 mg/dL (7-17); Calcium 8.5 mg/dL (8.4-10.2); Carbon Dioxide 24 mmol/L (22-30); Chloride 109 mmol/L (98-107); Estimated CRCL calculation 43 ml/min; Estimated Glomerular Filt Rate > 60; Glucose 156 mg/dL (65-110); Potassium 4.4 mmol/L (3.4-5.0); Sodium 137 mmol/L (137-145)
[2021-11-05 07:39] LABS: Iron 27 ug/dL (37-170); Percent Iron Saturation 9 % (20-50)
--- NOTE | 2021-11-05 08:04 | PM.PNCARD ---
Progress Note: A&P Assessment and Plan (1) Chest pain: Code(s): R07.9 - Chest pain, unspecified Status: Acute Assessment and Plan: Probably musculoskeletal as it is reproducible by palpation. [place] has been ruled out by Troponin negative x 3 sets. EKG shows AV paced rhythm. Due to more chest pains, last night EKG is OK with V paced rhythm. No arrhythmias by telemetry. Stop Amiodarone drip that was started. Check troponin. (2) Blood in stool: Code(s): K92.1 - Melena Status: Acute Assessment and Plan: GI consulted. (3) CAD (coronary artery disease), autologous vein bypass graft: Code(s): I25.810 - Atherosclerosis of coronary artery bypass graft(s) without angina pectoris Status: Acute (4) Anemia: Code(s): D64.9 - Anemia, unspecified Status: Acute Assessment and Plan: Keep Hb >8 gms. (5) Pacemaker: Code(s): Z95.0 - Presence of cardiac pacemaker Status: Acute Assessment and Plan: [employer] pacemaker is stable. (6) Diastolic dysfunction: Code(s): I51.89 - Other ill-defined heart diseases Status: Acute Assessment and Plan: Mild volume overloaded with small pleural effusions and trace edema of legs. Will need to continue Spironolactone and Furosemide dose once GI bleed is determined to be stable. Replete potassium. (7) Paroxysmal atrial flutter: Code(s): I48.92 - Unspecified atrial flutter Status: Chronic Assessment and Plan: On Xarelto which is on hold due to GI bleed. [id number] 5. She is on Eliquis 2.5 mg BID now given she may have had stroke on Xarelto. (8) Systolic dysfunction: Code(s): I51.9 - Heart disease, unspecified Status: Acute Assessment and Plan: 11/03/21 Echo: EF 40-45%, mild LVE, diastolic dysfunction (E/e' 46), severe LAE, mild-mod MR, mod TR, RVSP 52 mmHg, trace pericardial effusion. On Coreg. Resume Losartan. (9) Acute encephalopathy: Code(s): G93.40 - Encephalopathy, unspecified Status: Acute Assessment and Plan: CTA brain/neck shows several left frontal hypodensities suspicious for acute infarcts; carotid duplex with 0% bilateral stenosis. Patient was on Xarelto but was held for a couple of days for possible GI bleed. If no GI bleed, then need to resume anticoagulation with Eliquis 2.5 mg BID. Eliquis was restarted. Subjective Date/time seen: 11/05/21 08:04 She had chest pain with associated sob late last night around 3 am. Nurse called me and thought her HR went to 160's bpm. Therefore I had Amidarone drip started, but in review of telemetry strips her HR was atrial sense- V paced at up to 100 bpm only. She has reproducible chest pain with palpation and sob associated with that. Exam Const: General: cooperative, healthy appearing and comfortable Resp: Auscultation: clear to auscultation bilaterally, no crackles, no rales, no rhonchi and no wheezes Cardio: Jugular venous distension: no JVD Rate: regular rate Rhythm: regular rhythm Heart sounds: no murmurs Peripheral pulses: dorsalis pedis present GI: GI Palp: No abdominal tenderness and Yes Soft to palpation Neuro: General: oriented to person, oriented to place and oriented to time Extrem: Right lower extremity: edema Left lower extremity: edema Other: Trace edema of both legs Objective Data Vital Signs Vital Signs: Vital Signs - 24 hr 11/04/21 08:26 11/04/21 09:27 11/04/21 10:35 Temperature 98.1 F Pulse Rate 64 61 Respiratory Rate 18 Blood Pressure 153/52 H Pulse Oximetry 98 98 11/04/21 12:04 11/04/21 13:14 11/04/21 13:24 Temperature 98.0 F Pulse Rate 67 60 63 Respiratory Rate 18 20 16 Blood Pressure 165/81 H 129/51 L 148/76 H Pulse Oximetry 100 98 100 11/04/21 13:34 11/04/21 13:50 11/04/21 14:44 Temperature 97.9 F 98.7 F Pulse Rate 67 63 65 Respiratory Rate 19 14 18 Blood Pressure 150/78 H 174/69 H 164/61 H Pulse Oximetry 100 100 100 02
[2021-11-05 08:23] LABS: Troponin I < 0.012 ng/mL (0.000-0.034)
[2021-11-05] MEDS: FUROSEMIDE 20 MG TABLET PO (08:48)
[2021-11-05] MEDS: carvediloL 3.125 MG TABLET PO ×2 (08:48→20:07)
[2021-11-05] MEDS: POTASSIUM CHLORIDE 10 MEQ TABLET.ER PO (08:48)
[2021-11-05] MEDS: FERROUS SULFATE 324 MG TABLET PO (08:48)
[2021-11-05] MEDS: MULTIVITAMINS THERAPEUTIC TAB (*BKC) 1 TABLET PO (08:48)
[2021-11-05] MEDS: PANTOPRAZOLE SODIUM IV 40 MG VIAL IV PUSH ×2 (08:48→20:07)
[2021-11-05] MEDS: LOSARTAN POTASSIUM 50 MG TABLET PO (08:48)
[2021-11-05 08:49] LABS: Glucose Point of Care 156 mg/dl (65-105)
[2021-11-05] MEDS: SPIRONOLACTONE 25 MG TABLET PO (08:49)
[2021-11-05] MEDS: ASPIRIN 81 MG CHEWABLE TABLET PO (08:51)
[2021-11-05] MEDS: hydrALAZINE HCL 20 MG/ML VIAL 10 MG IV PUSH (08:52)
--- NOTE | 2021-11-05 10:25 | PCOTNOTE ---
Attempted to see patient this am, however patient declined. Patient reported completing ADLs last night and I'm tired, because I just had a large bowel movement. Pt declined activity out of bed at this time.
--- NOTE | 2021-11-05 10:34 | PM.IMPN ---
Progress Note: A&P Assessment and Plan (1) Stroke: Code(s): I63.9 - Cerebral infarction, unspecified Status: Acute Assessment and Plan: -CT head with hypoattenuation in the periventricular white matter of the left frontal lobe, consistent with age-indeterminate infarct -cannot get MRI as patient has a pacemaker -CTA shows several several left frontal lobe white matter hypodensities suspicious for acute infarctions. 0% stenosis bilateral carotids. -No neuro hospice care transitions coordinator this week -echo with bubble study reviewed -Discussed case with attending physician. Aspirin was held prior to going to GI lab for scopes due to anemia and possible GI bleed. She was on xaralto and a baby aspirin prior to arrival at the hospital. Both had been held during admission. -after negative colonoscopy yesterday, patient was restarted on oral anticoagulation per GI. per cardiology we have switched her to Eliquis as she did suffer an acute stroke while compliant on her xaralto. (2) Acute encephalopathy: Code(s): G93.40 - Encephalopathy, unspecified Status: Acute Assessment and Plan: -see above -resolved (3) Chest pain: Code(s): R07.9 - Chest pain, unspecified Status: Acute Assessment and Plan: -trop x3 negative -EKG shows AV paced rhythm -no pain at rest, only has pain with palpation of abdomen and chest wall -seen by cardiology who feels this is likely musculoskeletal (4) Anemia: Code(s): D64.9 - Anemia, unspecified Status: Acute Assessment and Plan: -8.4 on admission, has been stable throughout admission -prior labs a bit all over the place but it does appear she has a chronic anemia -start IV Protonix as she has history of GERD -seen by GI, negative colonoscopy 11/04/21 -resumed oral anticoagulation (5) Diabetes mellitus: Code(s): E11.9 - Type 2 diabetes mellitus without complications Status: Acute Assessment and Plan: -Complicated with hypoglycemia likely secondary to being NPO -accuchecks ACHS, hypoglycemic protocol, and SS insulin (6) Hypertension: Code(s): I10 - Essential (primary) hypertension Status: Acute Assessment and Plan: -continue home meds -P.r.n. hydralazine with parameters (7) Paroxysmal atrial flutter: Code(s): I48.92 - Unspecified atrial flutter Status: Chronic Assessment and Plan: -Was previously on xaralto but this was held when she was admitted for possible GI bleed -Resumed Coreg -xaralto restarted per GI s/p negative scope 11/04/21 -xaralto switched to eliquis today per cardiology as she did suffer a stroke while on xaralto -reportedly had episode of RVR last night, was started on amio drip. Now stable in the 80s. Review of tele shows she was paced at 100. Amio drip stopped today per cardiology. (8) Congestive heart failure: Qualifiers: Heart failure chronicity: chronic Heart failure type: unspecified Qualified Code(s): I50.9 - Heart failure, unspecified Code(s): I50.9 - Heart failure, unspecified Status: Chronic Assessment and Plan: -Monitor closely for fluid overload -echo reviewed -does have mild LE edema, venous dopplers negative -furosemide and spironolactone restarted per cardiology (9) GERD (gastroesophageal reflux disease): Qualifiers: Esophagitis presence: without esophagitis Qualified Code(s): K21.9 - Gastro-esophageal reflux disease without esophagitis Code(s): K21.9 - Gastro-esophageal reflux disease without esophagitis Status: Acute Assessment and Plan: -PPI (10) Hypoglycemia: Code(s): E16.2 - Hypoglycemia, unspecified Status: Acute Assessment and Plan: -unclear etiology but most likely due to being NPO -accuchecks and hypoglycemic protocol -improved now that she is eating (11) Colitis: Code(s): K52.9 - N
--- NOTE | 2021-11-05 11:16 | PHAR ---
LACTASE ENZYME SENT TO PHARMACY TO VERIFY. UNABLE TO VERIFY DUE TO NO MARKINGS ON TAB.
[2021-11-05 12:24] LABS: Glucose Point of Care 280 mg/dl (65-105)
[2021-11-05] MEDS: INSULIN ASPART (*BKC) 100 UNITS/ML SUB-Q ×3 (12:27→21:32)
--- NOTE | 2021-11-05 15:36 | PC.NURSE ---
This patient, Dinorah Thorpe, was transferred to [[facility] ] on 11/05/21 at 1536. Personal belongings sent with patient. Report given to [SALVADOR Clancy @ [id number] ]. Appropriate documentation sent with patient.
--- NOTE | 2021-11-05 15:58 | PC.NURSE ---
Pt transfer received from IMU. Patient oriented the unit.
[2021-11-05] MEDS: APIXABAN 2.5 MG TABLET PO (16:17)
[2021-11-05 17:08] LABS: Glucose Point of Care 218 mg/dl (65-105)
[2021-11-05] MEDS: PRAVASTATIN SODIUM 10 MG TABLET PO (20:07)
[2021-11-05 20:19] LABS: Glucose Point of Care 306 mg/dl (65-105)
[2021-11-05] MEDS: INSULIN GLARGINE (*BKC) 100 UNITS/ML 10 UNITS SUB-Q (21:33)
[2021-11-06] VITALS: PULSE 87
[2021-11-06 04:00] VITALS: PULSE 72
[2021-11-06 05:02] VITALS: BP 167/84; PULSE 94; RESP 18; TEMP 36.1; O2SAT 99
[2021-11-06 05:47] LABS: Basophils Percent Auto 0.4 % (0.2-1.2); Hematocrit 30.8 % (37.0-47.0); Hemoglobin 9.4 g/dL (12.0-15.0); Immature Granulocyte Absolute 0.03 K/mm3 (0.00-0.031); Immature Granulocyte Percent A 0.4 % (0-0.5); Lymphocytes Absolute Auto 1.36 K/mm3 (0.9-3.2); Lymphocytes Percent Auto 17.3 % (18.3-44.2); Mean Corpuscular HGB Conc 30.5 g/dl (32-36); Mean Corpuscular Hemoglobin 30.1 pg (26-34); Mean Corpuscular Volume 98.7 fl (80-100); Mean Platelet Volume 9.7 fl (7.4-10.4); Monocytes Absolute Auto 0.7 K/mm3 (0.1-0.6); Monocytes Percent Auto 8.8 % (2.6-8.5); Neutrophils Absolute Auto 5.8 K/mm3 (1.3-6.7); Neutrophils Percent Auto 73.1 % (45.5-73.1); Platelet Count Result 278 k/mm3 (150-375); Red Blood Count 3.12 M/mm3 (4.2-5.4); Red Cell Distribution Width 15.6 % (11.5-14.5); White Blood Count 7.9 K/mm3 (4.5-10.0)
[2021-11-06 05:58] LABS: Alanine Aminotransferase 21 U/L (4-35); Albumin Level 3.5 g/dL (3.5-5.1); Alkaline Phosphatase 63 U/L (38-126); Anion Gap 8 mmol/L (8-16); Aspartate Amino Transferase 22 U/L (14-36); Bilirubin,Total 0.3 mg/dL (0.2-1.3); Blood Urea Nitrogen 11 mg/dL (7-17); Calcium 8.7 mg/dL (8.4-10.2); Carbon Dioxide 25 mmol/L (22-30); Chloride 104 mmol/L (98-107); Estimated CRCL calculation 35 ml/min; Estimated Glomerular Filt Rate 60; Glucose 126 mg/dL (65-110); Potassium 3.8 mmol/L (3.4-5.0); Sodium 137 mmol/L (137-145)
[2021-11-06] MEDS: hydrALAZINE HCL 20 MG/ML VIAL 10 MG IV PUSH (06:01)
[2021-11-06] MEDS: LEVOTHYROXINE SODIUM 112 MCG TABLET PO (06:01)
[2021-11-06] MEDS: metroNIDAZOLE 500 MG/ISO 100ML 500 MG/100 ML BAG 100 MG IVPB (06:01)
--- NOTE | 2021-11-06 07:01 | PM.PNCARD ---
Progress Note: A&P Assessment and Plan (1) Chest pain: Code(s): R07.9 - Chest pain, unspecified Status: Acute Assessment and Plan: Probably musculoskeletal as it is reproducible by palpation. [place] has been ruled out by Troponin negative x 3 sets. EKG shows AV paced rhythm. May d/c home from cardiology standpoint. (2) Blood in stool: Code(s): K92.1 - Melena Status: Acute Assessment and Plan: GI consulted. (3) CAD (coronary artery disease), autologous vein bypass graft: Code(s): I25.810 - Atherosclerosis of coronary artery bypass graft(s) without angina pectoris Status: Acute (4) Anemia: Code(s): D64.9 - Anemia, unspecified Status: Acute Assessment and Plan: Keep Hb >8 gms. (5) Pacemaker: Code(s): Z95.0 - Presence of cardiac pacemaker Status: Acute Assessment and Plan: [employer] pacemaker is stable. (6) Diastolic dysfunction: Code(s): I51.89 - Other ill-defined heart diseases Status: Acute Assessment and Plan: Stable. On Spironolactone and Furosemide. (7) Paroxysmal atrial flutter: Code(s): I48.92 - Unspecified atrial flutter Status: Chronic Assessment and Plan: Was on Xarelto which is on hold due to GI bleed. [id number] 5. She is on Eliquis 2.5 mg BID now given she may have had stroke on Xarelto. (8) Systolic dysfunction: Code(s): I51.9 - Heart disease, unspecified Status: Acute Assessment and Plan: 11/03/21 Echo: EF 40-45%, mild LVE, diastolic dysfunction (E/e' 46), severe LAE, mild-mod MR, mod TR, RVSP 52 mmHg, trace pericardial effusion. On Coreg and Losartan. (9) Acute encephalopathy: Code(s): G93.40 - Encephalopathy, unspecified Status: Acute Assessment and Plan: CTA brain/neck shows several left frontal hypodensities suspicious for acute infarcts; carotid duplex with 0% bilateral stenosis. Patient was on Xarelto but was held for a couple of days for possible GI bleed. Since no GI bleed, then need to resume anticoagulation with Eliquis 2.5 mg BID. Subjective Date/time seen: 11/06/21 07:01 Denies chest pain or sob. Exam Const: General: cooperative, healthy appearing and comfortable Resp: Auscultation: clear to auscultation bilaterally, no crackles, no rales, no rhonchi and no wheezes Cardio: Jugular venous distension: no JVD Rate: regular rate Rhythm: regular rhythm Heart sounds: no murmurs Peripheral pulses: dorsalis pedis present GI: GI Palp: No abdominal tenderness and Yes Soft to palpation Neuro: General: oriented to person, oriented to place and oriented to time Extrem: Right lower extremity: no edema Left lower extremity: no edema Objective Data Vital Signs Vital Signs: Vital Signs - 24 hr 11/05/21 07:26 11/05/21 08:00 11/05/21 08:48 Temperature 97 F L Pulse Rate 76 68 72 Respiratory Rate 20 14 Blood Pressure 164/90 H 175/77 H Pulse Oximetry 100 99 11/05/21 10:00 11/05/21 12:00 11/05/21 16:18 Temperature Pulse Rate 78 74 96 Respiratory Rate Blood Pressure Pulse Oximetry 11/05/21 18:54 11/05/21 19:31 11/05/21 20:00 Temperature 97.1 F L 98.3 F Pulse Rate 66 75 76 Respiratory Rate 14 18 Blood Pressure 151/55 H 154/58 H Pulse Oximetry 97 99 11/05/21 20:07 11/05/21 20:38 11/06/21 00:00 Temperature Pulse Rate 75 72 87 Respiratory Rate Blood Pressure Pulse Oximetry 98 11/06/21 04:00 11/06/21 05:02 Temperature 97 F L Pulse Rate 72 94 Respiratory Rate 18 Blood Pressure 167/84 H Pulse Oximetry 99 Intake/Output Intake/Output: Intake & Output 11/03/21 11/04/21 11/05/21 11/06/21 23:59 23:59 23:59 23:59 Intake Total 1830 4070 1185.4 190 Output Total 1800 3500 Balance 30 4070 -2314.6 190 Meds/Results Medications: Active Medications Generic Name Dose Route Start Last Admin Trade Name Freq PRN Reason Stop Dose Admin Acetaminophen 650
[2021-11-06] MEDS: FERROUS SULFATE 324 MG TABLET PO (07:41)
[2021-11-06] MEDS: carvediloL 3.125 MG TABLET PO (07:42)
[2021-11-06] MEDS: POTASSIUM CHLORIDE 10 MEQ TABLET.ER PO (07:42)
[2021-11-06] MEDS: APIXABAN 2.5 MG TABLET PO (07:42)
[2021-11-06] MEDS: ASPIRIN 81 MG CHEWABLE TABLET PO (07:42)
[2021-11-06] MEDS: SPIRONOLACTONE 25 MG TABLET PO (07:43)
[2021-11-06] MEDS: LOSARTAN POTASSIUM 50 MG TABLET PO (07:43)
[2021-11-06] MEDS: FUROSEMIDE 20 MG TABLET PO (07:43)
[2021-11-06] MEDS: MULTIVITAMINS THERAPEUTIC TAB (*BKC) 1 TABLET PO (07:43)
[2021-11-06] MEDS: PANTOPRAZOLE SODIUM IV 40 MG VIAL IV PUSH (07:44)
[2021-11-06 07:49] VITALS: BP 149/63; PULSE 100
[2021-11-06 07:52] LABS: Glucose Point of Care 141 mg/dl (65-105)
[2021-11-06 08:00] VITALS: PULSE 105
[2021-11-06 08:47] VITALS: O2SAT 98
--- NOTE | 2021-11-06 09:46 | PM.DS ---
DS: Admitting Diagnosis Discharge Date 11/06/21 Admitting Diagnosis anemia DS: Discharge Diagnosis Discharge Diagnosis (1) Stroke: Code(s): I63.9 - Cerebral infarction, unspecified Status: Acute Assessment and Plan: -CT head with hypoattenuation in the periventricular white matter of the left frontal lobe, consistent with age-indeterminate infarct -cannot get MRI as patient has a pacemaker -CTA shows several several left frontal lobe white matter hypodensities suspicious for acute infarctions. 0% stenosis bilateral carotids. -No neuro weapons officer this week -echo with bubble study reviewed -Discussed case with attending physician. Aspirin was held prior to going to GI lab for scopes due to anemia and possible GI bleed. She was on xaralto and a baby aspirin prior to arrival at the hospital. Both had been held during admission because of her anemia. -after negative colonoscopy 11/04/21, patient was restarted on oral anticoagulation per GI. per cardiology we have switched her to Eliquis as she did suffer an acute stroke while compliant on her xaralto. (2) Acute encephalopathy: Code(s): G93.40 - Encephalopathy, unspecified Status: Acute Assessment and Plan: -see above, likely due to acute stroke -resolved (3) Chest pain: Code(s): R07.9 - Chest pain, unspecified Status: Acute Assessment and Plan: -trop x3 negative -EKG shows AV paced rhythm -no pain at rest, only has pain with palpation of abdomen and chest wall -seen by cardiology who feels this is likely musculoskeletal -resolved (4) Anemia: Code(s): D64.9 - Anemia, unspecified Status: Acute Assessment and Plan: -8.4 on admission, has been stable throughout admission -prior labs a bit all over the place but it does appear she has a chronic anemia -started IV Protonix as she has history of GERD -seen by GI, negative colonoscopy 11/04/21 -resumed oral anticoagulation, hgb still stable -recheck cbc outpatient 1 week (5) Diabetes mellitus: Code(s): E11.9 - Type 2 diabetes mellitus without complications Status: Acute Assessment and Plan: -Complicated with hypoglycemia likely secondary to being NPO -accuchecks ACHS, hypoglycemic protocol, and SS insulin -resume home medication upon discharge (6) Hypertension: Code(s): I10 - Essential (primary) hypertension Status: Acute Assessment and Plan: -continued home meds -P.r.n. hydralazine with parameters -stable (7) Paroxysmal atrial flutter: Code(s): I48.92 - Unspecified atrial flutter Status: Chronic Assessment and Plan: -Was previously on xaralto but this was held when she was admitted for possible GI bleed -Resumed Coreg -xaralto restarted per GI s/p negative scope 11/04/21 -xaralto switched to eliquis per cardiology as she did suffer a stroke while on xaralto -reportedly had episode of RVR overnight 11/04/21, was started on amio drip. Review of tele shows she was paced at 100 and never truly in RVR. Amio drip stopped per cardiology. She remains in the 80s and 90s. -stable for discharge per cardiology (8) Congestive heart failure: Qualifiers: Heart failure chronicity: chronic Heart failure type: unspecified Qualified Code(s): I50.9 - Heart failure, unspecified Code(s): I50.9 - Heart failure, unspecified Status: Chronic Assessment and Plan: -echo reviewed -does have mild LE edema, venous dopplers negative -furosemide and spironolactone restarted per cardiology (9) GERD (gastroesophageal reflux disease): Qualifiers: Esophagitis presence: without esophagitis Qualified Code(s): K21.9 - Gastro-esophageal reflux disease without esophagitis Code(s): K21.9 - Gastro-esophageal reflux disease without esophagitis Status: Acute Assessment and Plan: -PPI (10) Hypoglycemia:
[2021-11-06 11:25] LABS: Glucose Point of Care 211 mg/dl (65-105)
--- NOTE | 2021-12-02 11:50 | WPDNEURCNPN ---
Consult date: 12/02/21 HPI: Dinorah Thorpe is a 86 year old female ,pt not seen PMF Past Medical History Medical History Cardiomegaly Chemical conjunctivitis of both eyes Chronic anemia Chronic anticoagulation 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trial flutter. CKD (chronic kidney disease) stage 3, GFR 30-59 ml/min Closed head injury Congestive heart failure Contusion of right shoulder Coronary artery disease Diabetes type 2, controlled Diarrhea Dysphagia Fall (~07/22/19) History of esophageal dilatation History of pacemaker History of TIA (transient ischemic attack) and stroke Hyperlipidemia associated with type 2 diabetes mellitus Hypertension Hypertension associated with stage 3 chronic kidney disease due to type 2 diabetes mellitus Hyponatremia Hypothyroidism Paroxysmal atrial flutter Peripheral sensory neuropathy due to type 2 diabetes mellitus Rectal bleeding Schatzki's ring of distal esophagus Trigger finger, right middle finger Surgical History Surgical History History of appendectomy History of arthroplasty of right knee History of cholecystectomy History of colonoscopy with polypectomy Last colonoscopy in 01/2020 with descending colon polyp biopsied and showing ulcerated tubulovillous adenoma with high-grade dysplasia. History of mitral valve repair 4 vessel CABG and Mitral Valve Repair at [facility] in 1995. History of phacoemulsification of cataract of both eyes with intraocular lens implantation History of total abdominal hysterectomy and bilateral salpingo-oophorectomy S/P CABG (coronary artery bypass graft) 4 vessel CABG and Mitral Valve Repair at [facility] in 1995. Family History Family History Mother Carcinoma of colon Father Family history of coronary artery disease Father Family history of coronary artery disease Other Heart disease Hypertension Social History Social History Smoking status: Never smoker Second hand tobacco smoke exposure: No Alcohol intake: never Substance use: never Substance use type: does not use Last use: years ago; Additional living arrangements comments: Lives with Gender identity (if verbalized by the patient): Female Sexual Orientation (if Verbalized by the Patient): Straight or Heterosexual Spiritual care concerns: No Meds Home Medications and Allergies Home Medications Medication Instructions Recorded Confirmed Type Ozempic 0.5 mg SUBCUT WEEKLY 10/21/20 11/24/21 History levothyroxine 112 mcg PO DAILY 10/21/20 11/24/21 History pravastatin 20 mg tablet 10 mg PO HS 04/12/21 11/24/21 History potassium chloride 10 meq PO DAILY 04/15/21 11/24/21 History aspirin 81 mg tablet,delayed 81 mg PO DAILY 05/10/21 11/24/21 History release duloxetine 20 mg PO HS 07/07/21 11/24/21 History lidocaine [Aspercreme (lidocaine 1 patch TOPICAL DAILY PRN 07/07/21 11/24/21 History HCl)] multivitamin 1 tablet PO DAILY 07/07/21 11/24/21 History mesalamine [Lialda] 4.8 g PO DAILY 56 Days #224 tablet 07/10/21 11/24/21 Rx carvedilol 3.125 mg tablet 3.125 mg PO Q12HR 30 Days #60 08/19/21 11/24/21 Rx tablet loperamide [Imodium A-D] 2 mg PO Q4H PRN #14 cap 10/22/21 11/24/21 Rx Humulin 70/30 U-100 KwikPen 10 unit SUBCUT BID 11/02/21 11/24/21 History ferrous sulfate [FeroSul] 325 mg PO DAILY 11/02/21 11/24/21 History apixaban [Eliquis] 2.5 mg PO Q12HR #60 tablet 11/06/21 11/24/21 Rx losartan 50 mg tablet See Rx Instructions .ROUTE 11/12/21 11/24/21 Rx .COMPLEX #30 tablet isosorbide mononitrate 30 mg 30 mg PO DAILY #30 tablet 11/15/21 11/24/21 Rx tablet,extended release 24 hr furosemide 20 mg tablet See Rx Instructions .ROUTE 11/18/21 11/24/21 Rx .COMPLEX #30 tablet
== END 2021-11-06 13:33 | disposition home or self-care (01) | DRG 65 ==
LOC: ANHED 12:16 → ANHIMU 16:47 → ANH2MED 11-03 17:27 → ANHIMU 11-08 10:29
PROVIDERS: Emergency Medicine; Internal Medicine; Internal Medicine Cardiovascular Disease; Internal Medicine Gastroenterology; Physician Assistant; Admitting Provider Internal Medicine; Emergency Provider General Practice; PCP Internal Medicine; Visit Provider Internal Medicine
PROC: 0DJD8ZZ Inspection of Lower Intestinal Tract, Via Natural or Artificial Opening Endoscopic (ICD-10-PCS; CPT 45378; principal; 2021-11-04 13:00)
DX: I63.9 Cerebral infarction, unspecified (principal); I48.92 Unspecified atrial flutter; I13.0 Hypertensive heart and chronic kidney disease with heart failure and stage 1 through stage 4 chronic kidney disease, or unspecified chronic kidney disease; K92.1 Melena; I25.810 Atherosclerosis of coronary artery bypass graft(s) without angina pectoris; G93.49 Other encephalopathy; I48.20 Chronic atrial fibrillation, unspecified; N18.30 Chronic kidney disease, stage 3 unspecified; E11.22 Type 2 diabetes mellitus with diabetic chronic kidney disease; Z86.73 Personal history of transient ischemic attack (TIA), and cerebral infarction without residual deficits; E11.649 Type 2 diabetes mellitus with hypoglycemia without coma; E87.6 Hypokalemia; E11.42 Type 2 diabetes mellitus with diabetic polyneuropathy; E03.9 Hypothyroidism, unspecified; Z95.0 Presence of cardiac pacemaker; Z79.01 Long term (current) use of anticoagulants; Z79.899 Other long term (current) drug therapy; Z82.49 Family history of ischemic heart disease and other diseases of the circulatory system; Z79.82 Long term (current) use of aspirin; Z79.4 Long term (current) use of insulin; Z88.6 Allergy status to analgesic agent; I50.9 Heart failure, unspecified; Z88.3 Allergy status to other anti-infective agents; Z88.0 Allergy status to penicillin; Z88.8 Allergy status to other drugs, medicaments and biological substances; D64.9 Anemia, unspecified; K52.9 Noninfective gastroenteritis and colitis, unspecified; K21.9 Gastro-esophageal reflux disease without esophagitis; Z95.1 Presence of aortocoronary bypass graft; Z80.0 Family history of malignant neoplasm of digestive organs; Z95.2 Presence of prosthetic heart valve; R07.89 Other chest pain; K57.30 Diverticulosis of large intestine without perforation or abscess without bleeding
CPT/HCPCS: 36415; 36600; 70450; 70496; 70498; 71046; 74177; 80048; 80053; 80061; 82375; 82728; 82805; 82948; 83050; 83540; 83550; 83605; 83690; 83880; 84484; 85014; 85018; 85025; 85610; 85730; 86140; 86850; 86900; 86901; 93005; 93306; 93308; 93880; 93970; 96361; 96365; 96366; 96367; 96375; 96376; 97116; 97161; 97165; 97535; 99285; A9270; C9113; G0378; J0282; J0360; J0744; J1815; J2270; J2405; J2704; J3480; J7040; J7120; Q9967

== ENCOUNTER 2021-11-08 22:40 | Emergency (ER) | payer MEDICARE, SELFPAY ==
[2021-11-08] VITALS (10 sets, daily range): BP systolic 121–151; BP diastolic 53–77; PULSE 53–93; RESP 15–20; TEMP 36.2; O2SAT 98–100
--- NOTE | ~2021-11-08 | XR_ITS ---
XR chest 2V DATE: 11/08/2021 22:58 INDICATION: Medial chest pain, shortness of breath. Hypertension, congestive heart failure. TECHNIQUE: AP and lateral views COMPARISON: November 02, 2021 AP and lateral chest FINDINGS: Status post sternotomy and coronary bypass graft surgery. Cardiomegaly. Left-sided transvenous pacemaker device with leads overlying right atrium and right ventricle. Aortic calcification. No hilar or mediastinal enlargement. No pulmonary infiltrate or consolidation, the report by the catheter UA. Within the spine is more pro nounced today Pleural effusion or pulmonary vascular congestion or pneumothorax is evident. And walki ng and redistribution Surgical clips, retrocardiac, consistent with cholecystectomy. Diffuse osteopenia. Rotator cuff calcification left consistent with calcific tendinitis. IMPRESSION: Status post sternotomy/CABG. Left dual-lead pacemaker No active cardiopulmonary disease. Diffuse osteopenia Left rotator cuff calcific tendinitis Reviewed, dictated and finalized at location A. OR ASIC DESIGN ENGINEER
--- NOTE | 2021-11-08 22:41 | ECG_ITS ---
Measurements Intervals [place] Rate: 86 P: 125 ME: 164 QRS: -73 QRSD: 185 T: 104 QT: 447 QTc: 535 Interpretive Statements ELECTRONIC VENTRICULAR PACEMAKER COMPARED TO ECG 11/05/2021 03:28:46 NO SIGNIFICANT CHANGES Electronically Signed On 11-09-2021 12:22:02 TECHNICAL TRAINING INSTRUCTOR by Alex Marmolejo M.D.
[2021-11-08 22:55] LABS: Basophils Percent Auto 0.5 % (0.2-1.2); Hematocrit 32.9 % (37.0-47.0); Hemoglobin 9.9 g/dL (12.0-15.0); Immature Granulocyte Absolute 0.03 K/mm3 (0.00-0.031); Immature Granulocyte Percent A 0.4 % (0-0.5); Lymphocytes Percent Auto 17.1 % (18.3-44.2); Mean Corpuscular HGB Conc 30.1 g/dl (32-36); Mean Corpuscular Hemoglobin 30.5 pg (26-34); Mean Corpuscular Volume 101.2 fl (80-100); Mean Platelet Volume 9.8 fl (7.4-10.4); Monocytes Absolute Auto 0.6 K/mm3 (0.1-0.6); Monocytes Percent Auto 7.7 % (2.6-8.5); Neutrophils Absolute Auto 5.7 K/mm3 (1.3-6.7); Neutrophils Percent Auto 74.3 % (45.5-73.1); Platelet Count Result 273 k/mm3 (150-375); Red Blood Count 3.25 M/mm3 (4.2-5.4); Red Cell Distribution Width 15.5 % (11.5-14.5); White Blood Count 7.6 K/mm3 (4.5-10.0)
[2021-11-08 23:03] LABS: INR 1.1; Prothrombin Time 14.2 Seconds (11.1-14.7)
[2021-11-08 23:04] LABS: Partial Thromboplastin Time 28.3 SECONDS (22.3-36.8)
[2021-11-08 23:18] LABS: Alanine Aminotransferase 24 U/L (4-35); Albumin Level 4.4 g/dL (3.5-5.1); Alkaline Phosphatase 67 U/L (38-126); Anion Gap 7 mmol/L (8-16); Aspartate Amino Transferase 28 U/L (14-36); Bilirubin,Total 0.4 mg/dL (0.2-1.3); Blood Urea Nitrogen 25 mg/dL (7-17); Calcium 8.8 mg/dL (8.4-10.2); Carbon Dioxide 26 mmol/L (22-30); Chloride 101 mmol/L (98-107); Estimated CRCL calculation 22 ml/min; Estimated Glomerular Filt Rate 33; Glucose 223 mg/dL (65-110); Lipase 17 U/L (23-300); Potassium 3.6 mmol/L (3.4-5.0); Sodium 134 mmol/L (137-145)
[2021-11-08 23:29] LABS: Troponin I < 0.012 ng/mL (0.000-0.034)
[2021-11-09] VITALS (12 sets, daily range): BP systolic 133–148; BP diastolic 53–66; PULSE 62–81; RESP 13–18; O2SAT 97–100
--- NOTE | 2021-11-09 00:20 | ED.CHESTPAIN ---
HPI - Chest Pain General Chief Complaint: Chest Pain Stated Complaint: chest pain Time Seen by Provider: 11/08/21 22:50 Source: patient, family, RN notes reviewed and old records reviewed Mode of arrival: ambulatory Limitations: no limitations History of Present Illness HPI narrative: This is an 86 year old female with history of hypertension, colitis, CAD, CVA who presents for evaluation of chest pain. Patient developed left anterior chest pain approximately 2 hours ago. This pain is a dull ache and it is nonradiating. She denies associated cough, shortness of breathing , nausea, vomiting or fever. She was discharged from the hospital 2 days ago after having evaluation for chest pain, stroke and colitis. She was seen by her machine trimmer Dr. Herr. Her cardiac evaluation was unremarkable on her most recent hospital visit. Related Data Home Medications Medication Instructions Recorded Confirmed Ozempic 0.5 mg SUBCUT WEEKLY 10/21/20 11/02/21 levothyroxine 112 mcg PO DAILY 10/21/20 11/02/21 pravastatin 20 mg tablet 10 mg PO HS 04/12/21 11/02/21 furosemide 20 mg PO DAILY 04/15/21 11/02/21 potassium chloride 10 meq PO DAILY 04/15/21 11/02/21 aspirin 81 mg tablet,delayed 81 mg PO DAILY 05/10/21 11/02/21 release spironolactone 25 mg PO DAILY 07/04/21 11/02/21 duloxetine 20 mg PO HS 07/07/21 11/02/21 lidocaine [Aspercreme (lidocaine 1 patch TOPICAL DAILY PRN 07/07/21 11/02/21 HCl)] losartan 50 mg PO DAILY 07/07/21 11/02/21 multivitamin 1 tablet PO DAILY 07/07/21 11/02/21 Humulin 70/30 U-100 KwikPen 10 unit SUBCUT BID 11/02/21 11/02/21 ferrous sulfate [FeroSul] 325 mg PO DAILY 11/02/21 11/02/21 Allergies Allergy/AdvReac Type Severity Reaction Status Date / Time adhesive tape Allergy Severe BLISTERS Verified 11/08/21 22:47 amiodarone Allergy Severe N/V, Verified 11/08/21 22:47 HEADACHE, HOSPITALIZED atorvastatin Allergy Severe SWELLING Verified 11/08/21 22:47 clindamycin Allergy Severe TACHYCARDIA Verified 11/08/21 22:47 gabapentin Allergy Severe CHF Verified 11/08/21 22:47 gemfibrozil Allergy Severe ELEVATED Verified 11/08/21 22:47 CHOLESTEROL nifedipine Allergy Severe SWELLING Verified 11/08/21 22:47 norfloxacin Allergy Severe SWELLING Verified 11/08/21 22:47 adhesive Allergy Intermediate Unknown Verified 11/08/21 22:47 chlorpheniramine [Ornade] Allergy Intermediate Unknown Verified 11/08/21 22:47 doxycycline Allergy Intermediate Unknown Verified 11/08/21 22:47 erythromycin base Allergy Intermediate Unknown Verified 11/08/21 22:47 flurbiprofen [Ansaid] Allergy Intermediate Unknown Verified 11/08/21 22:47 tetracycline Allergy Intermediate Unconscious Verified 11/08/21 22:47 tramadol [Ultram] Allergy Intermediate Unknown Verified 11/08/21 22:47 cephalexin Allergy Mild Rash Verified 11/08/21 22:47 ciprofloxacin Allergy Unknown Unknown Verified 11/08/21 22:47 diclofenac Allergy Unknown Unknown Verified 11/08/21 22:47 hydroxyzine Allergy Unknown Unknown Verified 11/08/21 22:47 Penicillins Allergy Unknown Unknown Verified 11/08/21 22:47 propoxyphene Allergy Unknown Unknown Verified 11/08/21 22:47 terfenadine Allergy Unknown Unknown Verified 11/08/21 22:47 butorphanol AdvReac Severe RESTLESSNES Verified 11/08/21 22:47 S cerivastatin AdvReac Severe ABDOMINAL Verified 11/08/21 22:47 PAIN, H/A dexamethasone AdvReac Severe IRRITATED Verified 11/08/21 22:47 EYES duloxetine AdvReac Severe H/A Verified 11/08/21 22:47 enalaprilat AdvReac Severe COUGH Verified 11/08/21 22:47 guaifenesin AdvReac Severe NERVOUSNESS Verified 11/08/21 22:47 hydrocodone AdvReac Severe N/V Verified 11/08/21 22:47 isosorbide AdvReac Severe H/A Verified 11/08/21 22:47 levofloxacin AdvReac Severe VOMITING Verified 11/08/21 22:47 meperidine AdvReac Severe H/A Verified 11/08/21 22:47 nitroglycerin AdvReac Severe VOMITING Verified 11/08/21 22:47 oxycodone AdvReac Severe VOMITING Verified 11/08/21 22:47 phenylephrine AdvReac Severe NERVOUSNES
[2021-11-09 02:33] LABS: Troponin I < 0.012 ng/mL (0.000-0.034)
== END 2021-11-09 03:20 | disposition home or self-care (01) ==
PROVIDERS: Emergency Medicine; Emergency Provider General Practice; PCP Internal Medicine
DX: R07.9 Chest pain, unspecified (principal); E11.22 Type 2 diabetes mellitus with diabetic chronic kidney disease; I13.0 Hypertensive heart and chronic kidney disease with heart failure and stage 1 through stage 4 chronic kidney disease, or unspecified chronic kidney disease; E11.42 Type 2 diabetes mellitus with diabetic polyneuropathy; N18.30 Chronic kidney disease, stage 3 unspecified; I50.9 Heart failure, unspecified; I25.10 Atherosclerotic heart disease of native coronary artery without angina pectoris; I48.92 Unspecified atrial flutter; D64.9 Anemia, unspecified; E03.9 Hypothyroidism, unspecified; K22.2 Esophageal obstruction; Z86.73 Personal history of transient ischemic attack (TIA), and cerebral infarction without residual deficits; Z79.899 Other long term (current) drug therapy; Z79.82 Long term (current) use of aspirin; Z79.4 Long term (current) use of insulin; Z95.0 Presence of cardiac pacemaker; Z95.1 Presence of aortocoronary bypass graft; Z98.42 Cataract extraction status, left eye; Z98.41 Cataract extraction status, right eye; Z96.1 Presence of intraocular lens; M85.88 Other specified disorders of bone density and structure, other site; M75.32 Calcific tendinitis of left shoulder
CPT/HCPCS: 36415; 71046; 80053; 83690; 84484; 85025; 85610; 85730; 93005; 96365; 99284; J0131

== ENCOUNTER 2021-11-13 10:07 | Outpatient (CLI) | payer MEDICARE, SELFPAY ==
[2021-11-13 10:17] LABS: Basophils Absolute Auto 0.03 K/mm3 (0.00-0.10); Basophils Percent Auto 0.5 % (0.0-1.0); Eosinophils Absolute Auto 0.03 K/mm3 (0.02-0.50); Eosinophils Percent Auto 0.5 % (1.0-6.0); Hematocrit 30.6 % (35.0-42.0); Hemoglobin 9.1 g/dL (11.7-13.8); Immature Granulocyte Absolute 0.01 K/mm3 (0.00-0.00); Immature Granulocyte Percent A 0.2 % (0.0-0.0); Lymphocytes Percent Auto 16.6 % (18.0-42.0); Mean Corpuscular HGB Conc 29.7 g/dL (32.0-36.0); Mean Corpuscular Hemoglobin 30.8 pg (27.0-31.0); Mean Corpuscular Volume 103.7 fL (78.0-102.0); Mean Platelet Volume 9.6 fl (9.2-11.8); Monocytes Absolute Auto 0.54 K/mm3 (0.10-0.90); Neutrophils Absolute Auto 4.4 K/mm3 (1.7-7.2); Neutrophils Percent Auto 73.2 % (50.0-70.0); Platelet Count Result 223 K/mm3 (150-420); Red Blood Count 2.95 M/mm3 (4.20-5.40); Red Cell Distribution Width 15.6 % (11.6-14.4)
== END 2021-11-13 10:08 | disposition home or self-care (01) ==
LOC: CHSLAB 10:09
PROVIDERS: PCP Internal Medicine; Visit Provider Physician Assistant
DX: D64.9 Anemia, unspecified (principal); R42 Dizziness and giddiness; H53.8 Other visual disturbances; W19.XXXA Unspecified fall, initial encounter
CPT/HCPCS: 36415; 85025

== ENCOUNTER 2021-11-24 01:40 | Emergency (ER) | payer MEDICARE, SELFPAY ==
[2021-11-24 01:47] VITALS: BP 166/79; PULSE 77; RESP 16; TEMP 35.7; O2SAT 100
--- NOTE | 2021-11-24 02:07 | PC.NURSE ---
poison control case # [id number]
[2021-11-24] MEDS: DACRIOSE EYE IRRIGATION 118 ML BOTTLE (02:18)
--- NOTE | 2021-11-24 02:23 | ED.EYEPROB ---
HPI - Eye Problem General Chief complaint: Eye Problems Stated complaint: eye problem Time Seen by Provider: 11/24/21 01:43 Source: patient and RN notes reviewed Mode of arrival: ambulatory Limitations: no limitations History of Present Illness chief complaint: other (cleaning chemical splashed in both eyes. vision fine.) Onset (ago): hour(s) (2) Onset description: sudden Duration: constant Location: both eyes Eye Symptoms: other (asymptomatic, after eye-washing at home.) Place: home Mechanism: chemical exposure Severity: mild Severity scale (1-10): 1 If Pain, Quality: other (pain-free in both eyes with no acute redness) Associated symptoms: none Treatments Prior to Arrival: irrigated eye Related Data Home Medications Medication Instructions Recorded Confirmed Ozempic 0.5 mg SUBCUT WEEKLY 10/21/20 11/24/21 levothyroxine 112 mcg PO DAILY 10/21/20 11/24/21 pravastatin 20 mg tablet 10 mg PO HS 04/12/21 11/24/21 potassium chloride 10 meq PO DAILY 04/15/21 11/24/21 aspirin 81 mg tablet,delayed 81 mg PO DAILY 05/10/21 11/24/21 release duloxetine 20 mg PO HS 07/07/21 11/24/21 lidocaine [Aspercreme (lidocaine 1 patch TOPICAL DAILY PRN 07/07/21 11/24/21 HCl)] multivitamin 1 tablet PO DAILY 07/07/21 11/24/21 Humulin 70/30 U-100 KwikPen 10 unit SUBCUT BID 11/02/21 11/24/21 ferrous sulfate [FeroSul] 325 mg PO DAILY 11/02/21 11/24/21 Allergies Allergy/AdvReac Type Severity Reaction Status Date / Time adhesive tape Allergy Severe BLISTERS Verified 11/24/21 01:55 amiodarone Allergy Severe N/V, Verified 11/24/21 01:55 HEADACHE, HOSPITALIZED atorvastatin Allergy Severe SWELLING Verified 11/24/21 01:55 clindamycin Allergy Severe TACHYCARDIA Verified 11/24/21 01:55 gabapentin Allergy Severe CHF Verified 11/24/21 01:55 gemfibrozil Allergy Severe ELEVATED Verified 11/24/21 01:55 CHOLESTEROL nifedipine Allergy Severe SWELLING Verified 11/24/21 01:55 norfloxacin Allergy Severe SWELLING Verified 11/24/21 01:55 adhesive Allergy Intermediate Unknown Verified 11/24/21 01:55 chlorpheniramine [Ornade] Allergy Intermediate Unknown Verified 11/24/21 01:55 doxycycline Allergy Intermediate Unknown Verified 11/24/21 01:55 erythromycin base Allergy Intermediate Unknown Verified 11/24/21 01:55 flurbiprofen [Ansaid] Allergy Intermediate Unknown Verified 11/24/21 01:55 tetracycline Allergy Intermediate Unconscious Verified 11/24/21 01:55 tramadol [Ultram] Allergy Intermediate Unknown Verified 11/24/21 01:55 cephalexin Allergy Mild Rash Verified 11/24/21 01:55 ciprofloxacin Allergy Unknown Unknown Verified 11/24/21 01:55 diclofenac Allergy Unknown Unknown Verified 11/24/21 01:55 hydroxyzine Allergy Unknown Unknown Verified 11/24/21 01:55 Penicillins Allergy Unknown Unknown Verified 11/24/21 01:55 propoxyphene Allergy Unknown Unknown Verified 11/24/21 01:55 terfenadine Allergy Unknown Unknown Verified 11/24/21 01:55 butorphanol AdvReac Severe RESTLESSNES Verified 11/24/21 01:55 S cerivastatin AdvReac Severe ABDOMINAL Verified 11/24/21 01:55 PAIN, H/A dexamethasone AdvReac Severe IRRITATED Verified 11/24/21 01:55 EYES duloxetine AdvReac Severe H/A Verified 11/24/21 01:55 enalaprilat AdvReac Severe COUGH Verified 11/24/21 01:55 guaifenesin AdvReac Severe NERVOUSNESS Verified 11/24/21 01:55 hydrocodone AdvReac Severe N/V Verified 11/24/21 01:55 isosorbide AdvReac Severe H/A Verified 11/24/21 01:55 levofloxacin AdvReac Severe VOMITING Verified 11/24/21 01:55 meperidine AdvReac Severe H/A Verified 11/24/21 01:55 nitroglycerin AdvReac Severe VOMITING Verified 11/24/21 01:55 oxycodone AdvReac Severe VOMITING Verified 11/24/21 01:55 phenylephrine AdvReac Severe NERVOUSNESS Verified 11/24/21 01:55 phenylpropanolamine AdvReac Severe NERVOUSNESS Verified 11/24/21 01:55 prednisone AdvReac Severe H/A Verified 11/24/21 01:55 rofecoxib AdvReac Severe UPSET Verified 03/16/22 01:55 STOMACH, CAN TAKE WITH MEALS tobramycin AdvReac Se
[2021-11-24] MEDS: TETRACAINE HCL 0.5% OPHTH SOLN 4 ML BTL 1 DROP (02:31)
[2021-11-24] MEDS: SODIUM CHLORIDE 0.9% IRRIG 1,000 ML 500 ML IRRIGATION (02:37)
--- NOTE | 2021-11-24 02:56 | PC.NURSE ---
each eye irrigated with 500ml saline per provider order
[2021-11-24 03:11] VITALS: BP 178/78; PULSE 62; RESP 16; TEMP 36.9; O2SAT 98
== END 2021-11-24 03:15 | disposition home or self-care (01) ==
PROVIDERS: Emergency Provider Emergency Medicine; PCP Internal Medicine
DX: T55.1X1A Toxic effect of detergents, accidental (unintentional), initial encounter (principal); H10.213 Acute toxic conjunctivitis, bilateral
CPT/HCPCS: 99283; A9270; J7030

== ENCOUNTER 2021-12-10 08:41 | Outpatient (CLI) | payer MEDICARE, SELFPAY ==
--- NOTE | ~2021-12-10 | XR_ITS ---
EXAMINATION: XR barium swallow EXAM DATE: 12/10/2021 09:15 INDICATION: R13.10 - Dysphagia, unspecified . TECHNIQUE: Barium esophagram examination was performed by Dr. Bautista Murillo, radiologist, according to patient abilities in the standing position. Pulsed dose reduction fluoroscopy was used with fluorosc opic time of 0.3 minutes. The DAP for this procedure was 0.3 Gycm2. A total of 120 images obtained for the exam. There is no prior study for comparison. FINDINGS: There is pacemaker. Sternotomy wires. There is prominent cricopharyngeal fold. There is no esophageal stricture or mass identified. There are no esophageal diverticula. Gastroesophageal martin ction is normal in appearance. IMPRESSION: Prominent cricopharyngeal fold, otherwise unremarkable exam. Reviewed, dictated and finalized at location B.
== END 2021-12-10 08:42 | disposition home or self-care (01) ==
LOC: CHSIMG 08:42
PROVIDERS: PCP Internal Medicine; Visit Provider Internal Medicine Gastroenterology
DX: R13.10 Dysphagia, unspecified (principal); K52.9 Noninfective gastroenteritis and colitis, unspecified
CPT/HCPCS: 74220

== ENCOUNTER 2021-12-29 08:44 | Outpatient (CLI) | payer MEDICARE, SELFPAY ==
[2021-12-29 08:57] LABS: Basophils Absolute Auto 0.03 K/mm3 (0.00-0.10); Basophils Percent Auto 0.5 % (0.0-1.0); Eosinophils Absolute Auto 0.18 K/mm3 (0.02-0.50); Eosinophils Percent Auto 3.2 % (1.0-6.0); Hemoglobin 12.8 g/dL (11.7-13.8); Immature Granulocyte Absolute 0.03 K/mm3 (0.00-0.00); Immature Granulocyte Percent A 0.5 % (0.0-0.0); Lymphocytes Absolute Auto 1.17 K/mm3 (1.10-4.50); Mean Corpuscular HGB Conc 31.2 g/dL (32.0-36.0); Mean Corpuscular Hemoglobin 29.5 pg (27.0-31.0); Mean Corpuscular Volume 94.5 fL (78.0-102.0); Mean Platelet Volume 9.6 fl (9.2-11.8); Monocytes Absolute Auto 0.32 K/mm3 (0.10-0.90); Monocytes Percent Auto 5.7 % (2.0-11.0); Neutrophils Absolute Auto 3.9 K/mm3 (1.7-7.2); Neutrophils Percent Auto 69.1 % (50.0-70.0); Platelet Count Result 211 K/mm3 (150-420); Red Blood Count 4.34 M/mm3 (4.20-5.40); Red Cell Distribution Width 13.2 % (11.6-14.4); White Blood Count 5.6 K/mm3 (4.8-10.8)
[2021-12-29 09:54] LABS: Alanine Aminotransferase 31 U/L (14-59); Albumin Level 3.9 g/dL (3.4-5.0); Alkaline Phosphatase 79 U/L (46-116); Anion Gap 12 mmol/L (8-16); Aspartate Amino Transferase 22 U/L (15-37); Bilirubin,Total 0.3 mg/dL (0.00-1.00); Blood Urea Nitrogen 31 mg/dL (7-18); Calcium 9.4 mg/dL (8.5-10.1); Carbon Dioxide 29 mmol/L (21-32); Chloride 111 mmol/L (98-108); Estimated Glomerular Filt Rate 50; Glucose 153 mg/dL (70-99); Osmolality Calculated 323 mOsm/kg (285-295); Potassium 4.6 mmol/L (3.5-5.1); Sodium 152 mmol/L (136-145); Total Protein 7.3 g/dL (6.4-8.2)
== END 2021-12-29 08:45 | disposition home or self-care (01) ==
PROVIDERS: PCP Internal Medicine; Visit Provider Internal Medicine
DX: R94.5 Abnormal results of liver function studies (principal)
CPT/HCPCS: 36415; 80053; 85025

== ENCOUNTER 2022-02-05 12:22 | Outpatient (CLI) | payer MEDICARE, SELFPAY ==
[2022-02-05 12:36] LABS: Basophils Absolute Auto 0.04 K/mm3 (0.00-0.10); Basophils Percent Auto 0.5 % (0.0-1.0); Hematocrit 39.9 % (35.0-42.0); Hemoglobin 12.9 g/dL (11.7-13.8); Immature Granulocyte Absolute 0.02 K/mm3 (0.00-0.00); Immature Granulocyte Percent A 0.3 % (0.0-0.0); Lymphocytes Absolute Auto 1.03 K/mm3 (1.10-4.50); Lymphocytes Percent Auto 14.1 % (18.0-42.0); Mean Corpuscular HGB Conc 32.3 g/dL (32.0-36.0); Mean Corpuscular Hemoglobin 30.2 pg (27.0-31.0); Mean Corpuscular Volume 93.4 fL (78.0-102.0); Mean Platelet Volume 9.7 fl (9.2-11.8); Monocytes Absolute Auto 0.55 K/mm3 (0.10-0.90); Monocytes Percent Auto 7.5 % (2.0-11.0); Neutrophils Absolute Auto 5.7 K/mm3 (1.7-7.2); Neutrophils Percent Auto 77.6 % (50.0-70.0); Platelet Count Result 206 K/mm3 (150-420); Red Blood Count 4.27 M/mm3 (4.20-5.40); Red Cell Distribution Width 13.8 % (11.6-14.4); White Blood Count 7.3 K/mm3 (4.8-10.8)
[2022-02-05 12:44] LABS: Hemoglobin A1C 7.4 % (<5.7)
[2022-02-05 13:32] LABS: Alanine Aminotransferase 33 U/L (14-59); Albumin Level 4.1 g/dL (3.4-5.0); Alkaline Phosphatase 98 U/L (46-116); Anion Gap 8 mmol/L (8-16); Aspartate Amino Transferase 21 U/L (15-37); Bilirubin,Total 0.4 mg/dL (0.00-1.00); Blood Urea Nitrogen 39 mg/dL (7-18); Calcium 9.4 mg/dL (8.5-10.1); Carbon Dioxide 28 mmol/L (21-32); Chloride 101 mmol/L (98-108); Estimated Glomerular Filt Rate 54; Glucose 156 mg/dL (70-99); Osmolality Calculated 296 mOsm/kg (285-295); Potassium 4.5 mmol/L (3.5-5.1); Sodium 137 mmol/L (136-145); Total Protein 7.7 g/dL (6.4-8.2)
== END 2022-02-05 12:23 | disposition home or self-care (01) ==
LOC: CHSLAB 12:24
PROVIDERS: PCP Internal Medicine; Visit Provider Internal Medicine
DX: I50.9 Heart failure, unspecified (principal); E11.8 Type 2 diabetes mellitus with unspecified complications
CPT/HCPCS: 36415; 80053; 83036; 85025

== ENCOUNTER 2022-02-23 09:08 | Outpatient (CLI) | payer MEDICARE, SELFPAY ==
--- NOTE | ~2022-02-23 | NM_ITS ---
EXAMINATION: NM ritchie stress w perfusion DATE: 02/23/2022 12:16 INDICATION: Chest pain. TECHNIQUE: Rest images were obtained following intravenous administration of 10.5 mCi Tc99m tetrofosm in (Myoview). The patient was infused intravenously with Lexiscan (regadenoson). Then, 32.7 mCi Tc99m tetrofosmin (Myoview) was administered intravenously, and stress images were obtained. Data was sparkle nstructed into short axis and horizontal and vertical long axis SPECT images. Gated SPECT images were also obtained. COMPARISON: Myocardial perfusion imaging 01/28/2019 FINDINGS: There is a small, mild, fixed perfusion defect involving mid inferolateral segment of left ventricle, consistent with infarct. No reversible component to suggest ischemia. There is no segment al wall motion abnormality. Left ventricular ejection fraction measures 65%. IMPRESSION: 1. Small area of mild infarct involving mid inferolateral segment of left ventricle. 2. Normal left ventricular ejection fraction measuring 65%. Reviewed, dictated and finalized at location B. IMPRESSION: 1. Small area of mild infarct involving mid inferolateral segment of left ventr icle. 2. Normal left ventricular ejection fraction measuring 65%.
--- NOTE | 2022-02-23 09:09 | EST_ITS ---
Patient Info Name: Dinorah Thorpe Age: 86 years : 1935 Gender: Female Ht: 64 in Wt: 117 lbs BSA: 1.55 m2 HR: 79 bpm BP: 159 / 71 mmHg Heart Rhythm: Sinus Rhythm Exam Date: 02/23/2022 10:31 AM Exam Location: [facility] Stress Patient Status: Outpatient Admit Date: 02/23/2022 Staff Ordering Physician: Jim Herr DO Attending Provider: Jim Herr DO Exercise Technologist: Camille Gillespie CT Exam Type: CA stress ritchie w NM Study Info Indications R07.9 - Chest pain, unspecified A regadenoson stress test was performed. Summary 1. 1. Inconclusive lexiscan stress test for ischemic ST changes by ECG criteria due to baseline LBBB. 2. 2. Baseline hypertension. 3. 3. Nuclear scan to follow and will be reported separately. Please correlate with it. 4. 4. Patient informed of the above results. Protocol: Lexiscan Stress ECG Details Stage: REST Duration (min): 1 min : 37 sec HR (bpm): 80 SBP (mmHg): 159 DBP (mmHg): 71 Stage: REST Duration (min): 11 min : 38 sec HR (bpm): 78 SBP (mmHg): 159 DBP (mmHg): 71 Stage: STAGE 1 Duration (min): 0 min : 59 sec HR (bpm): 79 SBP (mmHg): 159 DBP (mmHg): 56 Stage: RECOVERY Duration (min): 1 min : 0 sec HR (bpm): 87 SBP (mmHg): 159 DBP (mmHg): 56 Stage: RECOVERY Duration (min): 2 min : 0 sec HR (bpm): 88 SBP (mmHg): 159 DBP (mmHg): 56 Stage: RECOVERY Duration (min): 3 min : 0 sec HR (bpm): 86 SBP (mmHg): 150 DBP (mmHg): 58 Stage: RECOVERY Duration (min): 3 min : 10 sec HR (bpm): 86 SBP (mmHg): 150 DBP (mmHg): 58 Rest HR: 78 bpm Peak HR: 93 bpm Rest Sys BP: 159 mmHg Peak Sys BP: 159 mmHg Max Pred HR: 136 bpm % Max Pred HR: 68 % Target HR: 116 bpm Max RPP: 14,787 bpm*mmHg Termination Reason: Completed protocol Cardiac Symptoms: Shortness of breath Total Time: 1 min : 0 sec Rest Sagastume BP: 71 mmHg Peak Sagastume BP: 56 mmHg Total Dose: 0.4 mg Resting ECG Sinus rhythm, first degree AV block, LBBB. Stress ECG No ST changes. Arrhythmias None. Report Signatures Amended by Jim Herr DO on 02/23/2022 11:22
== END 2022-02-23 09:09 | disposition home or self-care (01) ==
PROVIDERS: PCP Internal Medicine; Visit Provider Internal Medicine Cardiovascular Disease
DX: R07.9 Chest pain, unspecified (principal); I10 Essential (primary) hypertension
CPT/HCPCS: 78452; 93017; A9502; J2785

== ENCOUNTER 2022-05-04 17:01 | Outpatient (CLI) | payer MEDICARE, SELFPAY ==
[2022-05-04 17:33] LABS: Basophils Absolute Auto 0.06 K/mm3 (0.00-0.10); Hematocrit 36.7 % (35.0-42.0); Hemoglobin 11.7 g/dL (11.7-13.8); Immature Granulocyte Absolute 0.02 K/mm3 (0.00-0.00); Immature Granulocyte Percent A 0.3 % (0.0-0.0); Lymphocytes Absolute Auto 1.03 K/mm3 (1.10-4.50); Lymphocytes Percent Auto 16.5 % (18.0-42.0); Mean Corpuscular HGB Conc 31.9 g/dL (32.0-36.0); Mean Corpuscular Volume 97.3 fL (78.0-102.0); Mean Platelet Volume 9.9 fl (9.2-11.8); Monocytes Absolute Auto 0.56 K/mm3 (0.10-0.90); Neutrophils Absolute Auto 4.6 K/mm3 (1.7-7.2); Neutrophils Percent Auto 73.2 % (50.0-70.0); Platelet Count Result 208 K/mm3 (150-420); Red Blood Count 3.77 M/mm3 (4.20-5.40); Red Cell Distribution Width 12.9 % (11.6-14.4); White Blood Count 6.3 K/mm3 (4.8-10.8)
[2022-05-04 17:45] LABS: Hemoglobin A1C 6.3 % (<5.7)
[2022-05-04 17:48] LABS: Alanine Aminotransferase 29 U/L (14-59); Alkaline Phosphatase 111 U/L (46-116); Anion Gap 6 mmol/L (8-16); Aspartate Amino Transferase 23 U/L (15-37); Bilirubin,Total 0.3 mg/dL (0.00-1.00); Blood Urea Nitrogen 26 mg/dL (7-18); Calcium 9.2 mg/dL (8.5-10.1); Carbon Dioxide 27 mmol/L (21-32); Chloride 100 mmol/L (98-108); Estimated Glomerular Filt Rate 54; Glucose 138 mg/dL (70-99); Osmolality Calculated 282 mOsm/kg (285-295); Potassium 4.2 mmol/L (3.5-5.1); Sodium 133 mmol/L (136-145); Total Protein 7.7 g/dL (6.4-8.2)
== END 2022-05-04 17:02 | disposition home or self-care (01) ==
LOC: CHSLAB 17:03
PROVIDERS: PCP Internal Medicine; Visit Provider Internal Medicine
DX: I25.10 Atherosclerotic heart disease of native coronary artery without angina pectoris (principal); E11.9 Type 2 diabetes mellitus without complications
CPT/HCPCS: 36415; 80053; 83036; 85025

== ENCOUNTER 2022-05-23 19:25 | Emergency (ER) | payer MEDICARE, SELFPAY ==
[2022-05-23] VITALS (14 sets, daily range): BP systolic 132–184; BP diastolic 48–146; PULSE 61–87; RESP 12–22; TEMP 36.3; O2SAT 91–99
--- NOTE | ~2022-05-23 | XR_ITS ---
EXAM: XR knee LT 3V DATE: 05/23/2022 22:58 HISTORY: Left knee pain;Lt sided body pain onset last P.M.; no injury . COMPARISON: 03/11/2012. FINDINGS: Severely decreased mineralization. No acute fracture or dislocation. Chondrocalcinosis. [place] medial and lateral joint space narrowing and moderate bicompartmental osteophytosis. Vascular ca lcifications. Vascular clips in the medial thigh. Small volume joint effusion. IMPRESSION: No acute osseous finding in the left knee. Reviewed, dictated and finalized at location K.
--- NOTE | ~2022-05-23 | XR_ITS ---
EXAMINATION: XR chest 2V Exam Date/Time: 05/23/2022 19:58 CDT HISTORY: chest pain; hx of cardiomegaly, HTN, CABG 1995,prev smoker Comparison: 11/08/2021. RESULT: Lines, tubes, and devices: Left chest pacer with intact leads. Fractured inferior sternotomy wire, i n stable position. Multiple mediastinal vascular clips. Cholecystectomy clips. Lungs and pleura: Clear. Cardiomediastinal silhouette: Stable. Other: No acute osseous or upper abdominal finding. IMPRESSION: No acute cardiopulmonary process. Reviewed, dictated and finalized at location K.
--- NOTE | ~2022-05-23 | XR_ITS ---
EXAM: XR pelvis 1-2V DATE: 05/23/2022 22:58 HISTORY: Hip pain;Lt sided body pain onset last P.M.; no injury . COMPARISON: 12/12/2020. CT pelvis 04/25/2021 FINDINGS: Left inguinal vascular clips. Old right obturator ring fractures. Severely decreased tunnel miner alization. Severe lower lumbar degenerative change. Moderate bilateral hip arthritis. Arthritic vivar e at the pubic symphysis, including chondrocalcinosis. Extensive enthesopathy at the bilateral greate r trochanters. Extensive vascular calcification. IMPRESSION: No acute osseous finding in the pelvis. Reviewed, dictated and finalized at location K.
--- NOTE | ~2022-05-23 | CT_ITS ---
EXAMINATION: CTA chest abdomen pelvis DATE: 05/24/2022 01:07 INDICATION: Chest pain radiating to the left shoulder, left hip pain TECHNIQUE: Computed tomographic angiography (CTA) of the chest, abdomen, and pelvis was performed wit hout and with 100 mL Omnipque-350 intravenous contrast. Maximum intensity projection 3D-reconstructio ns of the aorta and other arteries were constructed by the technologist on a separate workstation. Th e dose-length product (DLP) was 493.84 mGy-cm. Automated exposure control and iterative reconstructio n technique were employed. COMPARISON: 11/02/2021 FINDINGS: CHEST CTA: There is no aneurysm or dissection of the thoracic aorta. Changes of coronary artery bypass grafting are noted. Although the contrast bolus is not specifically timed for evaluation of the pulmonary codey roxie, no pulmonary embolus is identified. There is mild dependent atelectasis. No pleural effusion or pneumothorax. Cardiomegaly is noted. There are no pathologically enlarged thoracic lymph nodes. A du al-lead cardiac pacemaker of the left chest wall ends with leads in expected locations. ABDOMEN AND PELVIS CTA: There is no aneurysm or dissection of the abdominal aorta. There is calcified atherosclerosis of the aorta and many of the other arteries. The celiac axis, superior mesenteric artery, and inferior mesen teric artery are normal at their origins. There are single renal arteries bilaterally. There is calci fied atherosclerosis and mild stenosis of the common iliac arteries. The external iliac arteries are unremarkable. There is calcified atherosclerosis with mild to moderate stenosis of the internal iliac arteries. The gallbladder is surgically absent. The liver, spleen, and adrenal glands are normal. Th ere is atrophy of the pancreas. The kidneys are unremarkable. No pathologically enlarged abdominal or pelvic lymph nodes are identified. There is no free intraperitoneal gas or evidence of bowel obstruc tion. There are old healed bilateral inferior and superior pubic rami fractures. There is severe lumb ar spondylosis. There is moderate distention of the urinary bladder. IMPRESSION: 1. No aneurysm or dissection of the thoracic or abdominal aorta. 2. Cardiomegaly. 3. Moderate distention of the urinary bladder. Reviewed, dictated and finalized at location B.
--- NOTE | 2022-05-23 19:40 | ECG_ITS ---
Measurements Intervals [place] Rate: 74 P: 38 SC: 234 QRS: -30 QRSD: 161 T: 229 QT: 429 QTc: 478 Interpretive Statements ATRIAL SENSE- ELECTRONIC VENTRICULAR PACEMAKER FREQUENT FUSION COMPLEXES NO FURTHER INTERPRETATION IS POSSIBLE ABNORMAL ECG COMPARED TO ECG 11/08/2021 22:46:37 NO SIGNIFICANT CHANGES Electronically Signed On 05-23-2022 21:03:16 CDT by Jim Herr D.O.
[2022-05-23 19:58] LABS: Basophils Percent Auto 0.5 % (0.2-1.2); Hematocrit 37.9 % (37.0-47.0); Hemoglobin 12.1 g/dL (12.0-15.0); Immature Granulocyte Absolute 0.01 K/mm3 (0.00-0.031); Immature Granulocyte Percent A 0.2 % (0-0.5); Lymphocytes Absolute Auto 1.13 K/mm3 (0.9-3.2); Lymphocytes Percent Auto 19.3 % (18.3-44.2); Mean Corpuscular HGB Conc 31.9 g/dl (32-36); Mean Corpuscular Hemoglobin 30.9 pg (26-34); Mean Corpuscular Volume 96.9 fl (80-100); Mean Platelet Volume 9.6 fl (7.4-10.4); Monocytes Absolute Auto 0.5 K/mm3 (0.1-0.6); Monocytes Percent Auto 7.8 % (2.6-8.5); Neutrophils Absolute Auto 4.2 K/mm3 (1.3-6.7); Neutrophils Percent Auto 72.2 % (45.5-73.1); Platelet Count Result 218 k/mm3 (150-375); Red Blood Count 3.91 M/mm3 (4.2-5.4); Red Cell Distribution Width 13.1 % (11.5-14.5); White Blood Count 5.9 K/mm3 (4.5-10.0)
[2022-05-23 20:08] LABS: Alanine Aminotransferase 30 U/L (6-35); Albumin Level 4.2 g/dL (3.5-5.1); Alkaline Phosphatase 90 U/L (38-126); Anion Gap 14 mmol/L (8-16); Aspartate Amino Transferase 31 U/L (14-36); Bilirubin,Total 0.3 mg/dL (0.2-1.3); Blood Urea Nitrogen 28 mg/dL (7-17); Calcium 8.8 mg/dL (8.4-10.2); Carbon Dioxide 23 mmol/L (22-30); Chloride 106 mmol/L (98-107); Estimated CRCL calculation 30 ml/min; Estimated Glomerular Filt Rate 60; Glucose 163 mg/dL (65-110); INR 1.2; Lipase 14 U/L (23-300); Potassium 3.6 mmol/L (3.4-5.0); Prothrombin Time 14.4 Seconds (11.1-14.7); Sodium 143 mmol/L (137-145)
[2022-05-23 20:09] LABS: Partial Thromboplastin Time 29.3 SECONDS (22.3-36.8)
[2022-05-23 20:19] LABS: Troponin I < 0.012 ng/mL (0.000-0.034)
--- NOTE | 2022-05-23 22:42 | ED.GENADULT ---
HPI - General Adult General Chief complaint: Unspecified Stated complaint: Pain to L hip/leg Time Seen by Provider: 05/23/22 22:21 History of Present Illness HPI narrative: this is an 86-year-old female presents to the ED with a chief complaint of chest pain that radiates to her left shoulder and left leg. This began and 10:00 p.m. last night. Occurred when she was trying to sleep, she describes the pain as trying to burst out of her body , radiates to her left shoulder and down to her left leg and now she is complaining of left leg weakness. This 10 out 10 in intensity. She has never experienced pain like this before there are no alleviating factors. It is worsened by movement. Patient denies shortness of breath, her chest pain is not resolved, she denies fever chills or cough. Patient has not taken anything for pain. At this time the patient's pain is primarily in her left buttock and radiates down the back of her left leg. Related Data Home Medications Medication Instructions Recorded Confirmed levothyroxine 112 mcg capsule 112 mcg PO DAILY 10/21/20 02/14/22 semaglutide 0.25 mg or 0.5 mg (2 0.5 mg subcut WEEKLY 10/21/20 02/14/22 mg/1.5 mL) subcutaneous pen injector (Ozempic) pravastatin 20 mg tablet 10 mg PO HS 04/12/21 02/14/22 potassium chloride 10 mEq 10 meq PO DAILY 04/15/21 02/14/22 tablet,extended release aspirin 81 mg tablet,delayed 81 mg PO DAILY 05/10/21 02/14/22 release (Adult Low Dose Aspirin) duloxetine 20 mg capsule,delayed 20 mg PO HS 07/07/21 02/14/22 release multivitamin 1 tablet PO DAILY 07/07/21 02/14/22 ferrous sulfate 325 mg (65 mg 325 mg PO DAILY 11/02/21 02/14/22 iron) tablet (FeroSul) insulin NPH-regular 70-30 U-100 10 unit subcut BID 11/02/21 02/14/22 insulin 100 unit/mL subcutaneous pen (Humulin 70/30 U-100 KwikPen) Allergies Allergy/AdvReac Type Severity Reaction Status Date / Time adhesive tape Allergy Severe BLISTERS Verified 02/14/22 14:28 amiodarone Allergy Severe N/V, Verified 02/14/22 14:28 HEADACHE, HOSPITALIZED atorvastatin Allergy Severe SWELLING Verified 02/14/22 14:28 clindamycin Allergy Severe TACHYCARDIA Verified 02/14/22 14:28 gabapentin Allergy Severe CHF Verified 02/14/22 14:28 gemfibrozil Allergy Severe ELEVATED Verified 02/14/22 14:28 CHOLESTEROL nifedipine Allergy Severe SWELLING Verified 02/14/22 14:28 norfloxacin Allergy Severe SWELLING Verified 02/14/22 14:28 adhesive Allergy Intermediate Unknown Verified 02/14/22 14:28 chlorpheniramine [Ornade] Allergy Intermediate Unknown Verified 02/14/22 14:28 doxycycline Allergy Intermediate Unknown Verified 02/14/22 14:28 erythromycin base Allergy Intermediate Unknown Verified 02/14/22 14:28 flurbiprofen [Ansaid] Allergy Intermediate Unknown Verified 02/14/22 14:28 tetracycline Allergy Intermediate Unconscious Verified 02/14/22 14:28 tramadol [Ultram] Allergy Intermediate Unknown Verified 02/14/22 14:28 cephalexin Allergy Mild Rash Verified 02/14/22 14:28 ciprofloxacin Allergy Unknown Unknown Verified 02/14/22 14:28 diclofenac Allergy Unknown Unknown Verified 02/14/22 14:28 hydroxyzine Allergy Unknown Unknown Verified 02/14/22 14:28 Penicillins Allergy Unknown Unknown Verified 02/14/22 14:28 propoxyphene Allergy Unknown Unknown Verified 02/14/22 14:28 terfenadine Allergy Unknown Unknown Verified 02/14/22 14:28 butorphanol AdvReac Severe RESTLESSNES Verified 02/14/22 14:28 S cerivastatin AdvReac Severe ABDOMINAL Verified 02/14/22 14:28 PAIN, H/A dexamethasone AdvReac Severe IRRITATED Verified 02/14/22 14:28 EYES duloxetine AdvReac Severe H/A Verified 02/14/22 14:28 enalaprilat AdvReac Severe COUGH Verified 02/14/22 14:28 guaifenesin AdvReac Severe NERVOUSNESS Verified 02/14/22 14:28 hydrocodone AdvReac Severe N/V Verified 02/14/22 14:28 isosorbide AdvReac Severe H/A Verified 02/14/22 14:28 levofloxacin AdvReac Severe VOMITING Verified 02/14/22 14:28 meperidine AdvReac Severe H/A Verified
[2022-05-23 23:37] LABS: Troponin I < 0.012 ng/mL (0.000-0.034)
[2022-05-24] VITALS (24 sets, daily range): BP systolic 123–158; BP diastolic 42–76; PULSE 60–88; RESP 10–18; O2SAT 84–99
[2022-05-24] MEDS: ACETAMINOPHEN 500 MG TABLET 1000 MG PO (00:39)
--- NOTE | 2022-05-24 02:38 | ED.GENADULT ---
HPI - General Adult General Chief complaint: Unspecified Stated complaint: Pain to L hip/leg Time Seen by Provider: 05/23/22 22:21 Related Data Home Medications Medication Instructions Recorded Confirmed levothyroxine 112 mcg capsule 112 mcg PO DAILY 10/21/20 02/14/22 semaglutide 0.25 mg or 0.5 mg (2 0.5 mg subcut WEEKLY 10/21/20 02/14/22 mg/1.5 mL) subcutaneous pen injector (Ozempic) pravastatin 20 mg tablet 10 mg PO HS 04/12/21 02/14/22 potassium chloride 10 mEq 10 meq PO DAILY 04/15/21 02/14/22 tablet,extended release aspirin 81 mg tablet,delayed 81 mg PO DAILY 05/10/21 02/14/22 release (Adult Low Dose Aspirin) duloxetine 20 mg capsule,delayed 20 mg PO HS 07/07/21 02/14/22 release multivitamin 1 tablet PO DAILY 07/07/21 02/14/22 ferrous sulfate 325 mg (65 mg 325 mg PO DAILY 11/02/21 02/14/22 iron) tablet (FeroSul) insulin NPH-regular 70-30 U-100 10 unit subcut BID 11/02/21 02/14/22 insulin 100 unit/mL subcutaneous pen (Humulin 70/30 U-100 KwikPen) Allergies Allergy/AdvReac Type Severity Reaction Status Date / Time adhesive tape Allergy Severe BLISTERS Verified 02/14/22 14:28 amiodarone Allergy Severe N/V, Verified 02/14/22 14:28 HEADACHE, HOSPITALIZED atorvastatin Allergy Severe SWELLING Verified 02/14/22 14:28 clindamycin Allergy Severe TACHYCARDIA Verified 02/14/22 14:28 gabapentin Allergy Severe CHF Verified 02/14/22 14:28 gemfibrozil Allergy Severe ELEVATED Verified 02/14/22 14:28 CHOLESTEROL nifedipine Allergy Severe SWELLING Verified 02/14/22 14:28 norfloxacin Allergy Severe SWELLING Verified 02/14/22 14:28 adhesive Allergy Intermediate Unknown Verified 02/14/22 14:28 chlorpheniramine [Ornade] Allergy Intermediate Unknown Verified 02/14/22 14:28 doxycycline Allergy Intermediate Unknown Verified 02/14/22 14:28 erythromycin base Allergy Intermediate Unknown Verified 02/14/22 14:28 flurbiprofen [Ansaid] Allergy Intermediate Unknown Verified 02/14/22 14:28 tetracycline Allergy Intermediate Unconscious Verified 02/14/22 14:28 tramadol [Ultram] Allergy Intermediate Unknown Verified 02/14/22 14:28 cephalexin Allergy Mild Rash Verified 02/14/22 14:28 ciprofloxacin Allergy Unknown Unknown Verified 02/14/22 14:28 diclofenac Allergy Unknown Unknown Verified 02/14/22 14:28 hydroxyzine Allergy Unknown Unknown Verified 02/14/22 14:28 Penicillins Allergy Unknown Unknown Verified 02/14/22 14:28 propoxyphene Allergy Unknown Unknown Verified 02/14/22 14:28 terfenadine Allergy Unknown Unknown Verified 02/14/22 14:28 butorphanol AdvReac Severe RESTLESSNES Verified 02/14/22 14:28 S cerivastatin AdvReac Severe ABDOMINAL Verified 02/14/22 14:28 PAIN, H/A dexamethasone AdvReac Severe IRRITATED Verified 02/14/22 14:28 EYES duloxetine AdvReac Severe H/A Verified 02/14/22 14:28 enalaprilat AdvReac Severe COUGH Verified 02/14/22 14:28 guaifenesin AdvReac Severe NERVOUSNESS Verified 02/14/22 14:28 hydrocodone AdvReac Severe N/V Verified 02/14/22 14:28 isosorbide AdvReac Severe H/A Verified 02/14/22 14:28 levofloxacin AdvReac Severe VOMITING Verified 02/14/22 14:28 meperidine AdvReac Severe H/A Verified 02/14/22 14:28 nitroglycerin AdvReac Severe VOMITING Verified 02/14/22 14:28 oxycodone AdvReac Severe VOMITING Verified 02/14/22 14:28 phenylephrine AdvReac Severe NERVOUSNESS Verified 02/14/22 14:28 phenylpropanolamine AdvReac Severe NERVOUSNESS Verified 02/14/22 14:28 prednisone AdvReac Severe H/A Verified 02/14/22 14:28 rofecoxib AdvReac Severe UPSET Verified 02/14/22 14:28 STOMACH, CAN TAKE WITH MEALS tobramycin AdvReac Severe IRRITATED Verified 02/14/22 14:28 EYES codeine AdvReac Intermediate Tired Verified 02/14/22 14:28 [facility] Past Medical History Medical History Cardiomegaly Chemical conjunctivitis of both eyes Chronic anemia Chronic anticoagulation Hx of left atrial appendage thrombus on echo in 12/2017, also from
[2022-05-24 02:44] LABS: Troponin I < 0.012 ng/mL (0.000-0.034)
== END 2022-05-24 03:55 | disposition home or self-care (01) ==
PROVIDERS: Emergency Provider Emergency Medicine; PCP Internal Medicine
DX: M54.16 Radiculopathy, lumbar region (principal); I13.0 Hypertensive heart and chronic kidney disease with heart failure and stage 1 through stage 4 chronic kidney disease, or unspecified chronic kidney disease; E11.22 Type 2 diabetes mellitus with diabetic chronic kidney disease; N18.30 Chronic kidney disease, stage 3 unspecified; I50.9 Heart failure, unspecified; Z79.4 Long term (current) use of insulin; I25.10 Atherosclerotic heart disease of native coronary artery without angina pectoris; E03.9 Hypothyroidism, unspecified
CPT/HCPCS: 36415; 71046; 71275; 72170; 73562; 74174; 80053; 83690; 84484; 85025; 85610; 85730; 93005; 99284; A9270; Q9967

== ENCOUNTER 2022-06-07 14:23 | Outpatient (RCR) | payer MEDICARE, SELFPAY ==
--- NOTE | 2022-06-07 16:18 | PTOPEVAL1 ---
Assessment and note entered by Candi Vera, PT Evaluation Information Assessment Status Evaluation Diagnosis L L5 Radiculopathy Onset 06/01/22 Subjective Information Dinorah reports she started having left leg pain about a week ago. Pain started in the left buttock and traveled to the outer hip and down the outer leg. She reports initially it felt numb so she had her son take her to the emergency room. She had blood work, CT scan, and x-rays. She was diagnosed with lumbar radiculopathy. She was referred to follow up with her heart doctor. She notes that left leg pain is getting a little better. She was prescribed Tylenol for pain and used it regularly until a few days ago. She is having difficulty with standing more than 5 minutes, walking more than a couple hundred feet, bending, lifting, and most daily activities. She lives at home with her . She does have stairs to the basement but does not have to go to the basement. She also has 4 stairs into her home with a handrail which she is able to navigate at this time. She is not sure what helps decrease her villagomez. Reported Pain Level Pain Score 5: Self Report Assessment PT Clinical Summary Dinorah presents with left LE pain that started one week ago. She went to the ER and was diagnosed with L5 radiculopathy. She is reporting difficulty with standing more than 5 minutes, walking more than a 200 feet, bending, lifting, and most ADLs. She objectively demonstrates decreased and painful lumbar AROM, decreased core and left proximal LE strength, altered gait, altered balance, palpable tenderness about the left gluteal region, and positive special tests indicating lumbar nerve impingement. She will benefit from skilled PT to address these limitations. Plan of Care Interventions Electrical Stimulation,Hot Pack/Cold Pack,Manual Therapy,Neuro Re-education,Therapeutic Activities, Therapeutic Exercise PT Services Indicated Yes Treatment Frequency and 2 times a week for 12 visits Duration These treatments will address the objective and functional deficits as defined above. The patient will be advanced safely and appropriately in order for the patient to progress towards his/her prior level of function. Additional exercises will be introduced and as well as a comprehensive home exercise program upon discharge, if needed, ?to ensure carryover of functional gains achieved in the clinic. This treatment plan has been reviewed and agreement upon by the patient.
== END 2022-06-14 23:59 | disposition home or self-care (01) ==
LOC: CHSPT 14:23
PROVIDERS: PCP Internal Medicine; Visit Provider Internal Medicine
DX: M54.17 Radiculopathy, lumbosacral region (principal)
CPT/HCPCS: 97110; 97140; 97161

== ENCOUNTER 2022-06-16 14:44 | Observation (INO) | payer MEDICARE, SELFPAY ==
[2022-06-16] VITALS (19 sets, daily range): BP systolic 116–168; BP diastolic 55–89; PULSE 55–80; RESP 13–80; TEMP 37.2; O2SAT 96–100; BMI 20.5
--- NOTE | ~2022-06-16 | XR_ITS ---
XR chest 1V 06/16/2022 15:32 Indication: Left-sided paralysis Procedure: AP view of the chest Comparison: Comparison to multiple prior studies sequentially, with oldest reviewed study dated 11/02. Findings: Status post median sternotomy for CABG. Heart size normal. Pacemaker leads in expected posi tion. No focal air space disease, pulmonary edema, pleural effusion or suspected pneumothorax. There are degenerative changes of the shoulders. No acute osseous abnormality. Impression: 1: No acute cardiopulmonary disease. Reviewed, dictated and finalized at location A. Impression: 1: No acute cardiopulmonary disease.
--- NOTE | ~2022-06-16 | CT_ITS ---
EXAMINATION: CT brain wo con DATE: 06/16/2022 15:24 INDICATION: Left-sided paralysis. History of CVA. TECHNIQUE: Computed tomography (CT) of the head was performed without intravenous contrast. The dose- length product was 605.33 mGy-cm. Automated exposure control and iterative reconstruction technique w ere employed. COMPARISON: CT dated 11/03/2021 FINDINGS: There is a chronic infarction of the left centrum semiovale parietal lobe. There is intracr anial atherosclerosis. Generalized atrophy. There are scattered mild periventricular and subcortical white matter changes, most likely related to small vessel ischemic disease (microangiopathy). There i s intracranial atherosclerosis. No ventriculomegaly or midline shift. Basilar cisterns are patent. Sagittal images are unremarkable. There is mucosal thickening of the maxillary, ethmoid, sphenoid and frontal sinuses. Mastoids are pneumatized. No depressed skull fracture. IMPRESSION: 1. No acute intracranial abnormality. 2: Chronic left parietal infarction. 3: Pansinusitis. Reviewed, dictated and finalized at location A.
--- NOTE | 2022-06-16 15:12 | ECG_ITS ---
Measurements Intervals [place] Rate: 58 P: 55 VT: 275 QRS: 134 QRSD: 197 T: -44 QT: 495 QTc: 490 Interpretive Statements ELECTRONIC VENTRICULAR PACEMAKER PACEMAKER MALFUNCTION IS PRESENT - THERE IS FAILURE TO CAPTURE COMPARED TO ECG 05/23/2022 19:42:19 PACEMAKER MALFUNCTION IS PRESENT - THERE IS FAILURE TO CAPTURE Electronically Signed On 06-16-2022 17:50:28 CDT by Pedro Allen M.D.
[2022-06-16 15:20] LABS: Glucose Point of Care 254 mg/dl (65-105)
[2022-06-16 15:52] LABS: Basophils Percent Auto 0.5 % (0.2-1.2); Hematocrit 39.4 % (37.0-47.0); Hemoglobin 12.6 g/dL (12.0-15.0); Immature Granulocyte Absolute 0.03 K/mm3 (0.00-0.031); Immature Granulocyte Percent A 0.4 % (0-0.5); Lymphocytes Absolute Auto 0.94 K/mm3 (0.9-3.2); Lymphocytes Percent Auto 12.3 % (18.3-44.2); Mean Corpuscular Hemoglobin 30.9 pg (26-34); Mean Corpuscular Volume 96.6 fl (80-100); Mean Platelet Volume 9.6 fl (7.4-10.4); Monocytes Absolute Auto 0.5 K/mm3 (0.1-0.6); Monocytes Percent Auto 6.7 % (2.6-8.5); Neutrophils Absolute Auto 6.1 K/mm3 (1.3-6.7); Neutrophils Percent Auto 80.1 % (45.5-73.1); Platelet Count Result 201 k/mm3 (150-375); Red Blood Count 4.08 M/mm3 (4.2-5.4); Red Cell Distribution Width 12.8 % (11.5-14.5); White Blood Count 7.7 K/mm3 (4.5-10.0)
[2022-06-16 16:02] LABS: INR 1.2
[2022-06-16 16:03] LABS: Alanine Aminotransferase 23 U/L (6-35); Albumin Level 4.3 g/dL (3.5-5.1); Alkaline Phosphatase 110 U/L (38-126); Anion Gap 10 mmol/L (8-16); Aspartate Amino Transferase 23 U/L (14-36); Bilirubin,Total 0.3 mg/dL (0.2-1.3); Blood Urea Nitrogen 20 mg/dL (7-17); Calcium 9.1 mg/dL (8.4-10.2); Carbon Dioxide 25 mmol/L (22-30); Chloride 102 mmol/L (98-107); Estimated CRCL calculation 35 ml/min; Estimated Glomerular Filt Rate 60; Glucose 244 mg/dL (65-110); Partial Thromboplastin Time 32.7 SECONDS (22.3-36.8); Potassium 3.9 mmol/L (3.4-5.0); Sodium 137 mmol/L (137-145)
--- NOTE | 2022-06-16 16:09 | ED.GENADULT ---
HPI - General Adult General Chief complaint: Weakness Stated complaint: confusion, one sided weakness since monday Time Seen by Provider: 06/16/22 15:49 Source: RN notes reviewed History of Present Illness HPI narrative: Patient presents emergency department from home for left-sided weakness. patient states that the symptoms began 2 days ago and that she thought it would get better but they have not she states she feels weak in the left arm and leg states has been having trouble doing certain movements with both of them and states that she normally walks with a cane but has been having to walk with a walker because of her left leg weakness she states she does have a history of previous strokes she denies any fevers or chills chest pain shortness of breath or any other symptoms patient does state that she has been taking her medications as prescribed including her apixaban Related Data Home Medications Medication Instructions Recorded Confirmed levothyroxine 112 mcg capsule 112 mcg PO DAILY 10/21/20 06/13/22 pravastatin 20 mg tablet 10 mg PO HS 04/12/21 06/13/22 potassium chloride 10 mEq 10 meq PO DAILY 04/15/21 06/13/22 tablet,extended release aspirin 81 mg tablet,delayed 81 mg PO DAILY 05/10/21 06/13/22 release (Adult Low Dose Aspirin) duloxetine 20 mg capsule,delayed 20 mg PO HS 07/07/21 06/13/22 release multivitamin 1 tablet PO DAILY 07/07/21 06/13/22 ferrous sulfate 325 mg (65 mg 325 mg PO DAILY 11/02/21 06/13/22 iron) tablet (FeroSul) insulin NPH-regular 70-30 U-100 10 unit subcut BID 11/02/21 06/13/22 insulin 100 unit/mL subcutaneous pen (Humulin 70/30 U-100 KwikPen) Allergies Allergy/AdvReac Type Severity Reaction Status Date / Time adhesive tape Allergy Severe BLISTERS Verified 06/13/22 14:13 amiodarone Allergy Severe N/V, Verified 06/13/22 14:13 HEADACHE, HOSPITALIZED atorvastatin Allergy Severe SWELLING Verified 06/13/22 14:13 clindamycin Allergy Severe TACHYCARDIA Verified 06/13/22 14:13 gabapentin Allergy Severe CHF Verified 06/13/22 14:13 gemfibrozil Allergy Severe ELEVATED Verified 06/13/22 14:13 CHOLESTEROL nifedipine Allergy Severe SWELLING Verified 06/13/22 14:13 norfloxacin Allergy Severe SWELLING Verified 06/13/22 14:13 adhesive Allergy Intermediate Unknown Verified 06/13/22 14:13 chlorpheniramine [Ornade] Allergy Intermediate Unknown Verified 06/13/22 14:13 doxycycline Allergy Intermediate Unknown Verified 06/13/22 14:13 erythromycin base Allergy Intermediate Unknown Verified 06/13/22 14:13 flurbiprofen [Ansaid] Allergy Intermediate Unknown Verified 06/13/22 14:13 tetracycline Allergy Intermediate Unconscious Verified 06/13/22 14:13 tramadol [Ultram] Allergy Intermediate Unknown Verified 06/13/22 14:13 cephalexin Allergy Mild Rash Verified 06/13/22 14:13 ciprofloxacin Allergy Unknown Unknown Verified 06/13/22 14:13 diclofenac Allergy Unknown Unknown Verified 06/13/22 14:13 hydroxyzine Allergy Unknown Unknown Verified 06/13/22 14:13 Penicillins Allergy Unknown Unknown Verified 06/13/22 14:13 propoxyphene Allergy Unknown Unknown Verified 06/13/22 14:13 terfenadine Allergy Unknown Unknown Verified 06/13/22 14:13 butorphanol AdvReac Severe RESTLESSNES Verified 06/13/22 14:13 S cerivastatin AdvReac Severe ABDOMINAL Verified 06/13/22 14:13 PAIN, H/A dexamethasone AdvReac Severe IRRITATED Verified 06/13/22 14:13 EYES duloxetine AdvReac Severe H/A Verified 06/13/22 14:13 enalaprilat AdvReac Severe COUGH Verified 06/13/22 14:13 guaifenesin AdvReac Severe NERVOUSNESS Verified 06/13/22 14:13 hydrocodone AdvReac Severe N/V Verified 06/13/22 14:13 isosorbide AdvReac Severe H/A Verified 06/13/22 14:13 levofloxacin AdvReac Severe VOMITING Verified 06/13/22 14:13 meperidine AdvReac Severe H/A Verified 06/13/22 14:13 nitroglycerin AdvReac Severe VOMITING Verified 06/13/22 14:13 oxycodone AdvReac Severe VOMITING Verified 06/13/22 14:13 phenylephrine AdvReac Severe NERVOUSNESS Verified
[2022-06-16 16:14] LABS: Troponin I < 0.012 ng/mL (0.000-0.034)
[2022-06-16 17:18] LABS: Appearance Urine Clear (Clear); Bilirubin Urine Negative (Negative); Blood Urine Negative (Negative); Color Urine Yellow (Yellow); Glucose Urine UA Negative (Negative); Ketones Urine Negative (Negative); Leukocyte Esterase Ur 3+ LEU/UL (Negative); Nitrate Urine Negative (Negative); Protein Urine Negative (Negative); Urobilinogen Urine 0.2 mg/dL (<2.0); pH Urine 5.5 (5.0-9.0)
[2022-06-16 17:24] LABS: Add Urine Microscopic? YES; Bacteria Urine 2+ /hpf; Mucus Urine Rare /lpf; WBC Urine >75 /hpf
--- NOTE | 2022-06-16 21:08 | ADMGEN ---
This patient, Dinorah Thorpe, was admitted to Virtual Bed 3rd Floor-1. Patient/family oriented to hospital policies and general routines including ID bracelet, bed and alarms, visiting hours, pain management, procedures, bathroom and other care routines, personal items, smoking policy, room service/diet, and visiting hours. Information on how to activate the Rapid Response Team has been discussed. Patient/Family are encouraged to report perceived risks to care and to ask questions if they do not understand what they are told or what they should do.
[2022-06-16 22:28] LABS: Troponin I < 0.012 ng/mL (0.000-0.034)
--- NOTE | 2022-06-16 23:29 | PM.IMHP ---
H&P: HPI History of Present Illness Date/Time: 06/16/22 23:29 Chief Complaint: weakness and confusion Narrative: this is an 86-year-old female patient who has had multiple TIAs and CVAs in the past. The patient has a left facial droop which she stated was from her previous stroke. Today the patient came in because she is having some left-sided weakness that she typically does not have. The patient's symptoms started about 2 days ago. The patient has stated that she thought this would go away. She has been using a walker to ambulate when she usually use a cane to walk. The patient stated she was having difficulty moving. The patient is on apixaban. Her blood sugar was 244-254.. Last A1c was 05/04/2022 was 6.3. Troponin was found to be negative. The patient was found to have a UTI. The patient has multiple allergies but was started on ceftriaxone. She has had ceftriaxone before and had no reaction. The patient is being admitted to observation status on the date of service of 06/16/2022. Review of Systems Review of Systems: See HPI All systems reviewed & are unremarkable except as noted in HPI and below Constitutional: Constitutional: Reports as per HPI and Reports no additional constitutional complaints Eyes: Eyes: Reports as per HPI and Reports no additional eye complaints ENT: Reports system reviewed and no additional complaints, except as documented and Reports Normal hearing present Cardiovascular: Cardiovascular: Reports no additional cardiovascular complaints Respiratory: Respiratory: Reports no additional respiratory complaints and Reports no additional respiratory complaints Gastrointestinal: Gastrointestinal: Reports as per HPI and Reports no additional gastrointestinal complaints Musculoskeletal: Musculoskeletal: Reports no additional musculoskeletal complaints Integumentary/Breasts: Skin/Breast: Reports system reviewed and no additional complaints, except as docu and Reports as per HPI Neurologic: Reports system reviewed and no additional complaints, except as documented, Reports as per HPI and Reports Normal hearing present Psychiatric: Psychiatric: Reports no additional psychiatric complaints and Reports as per HPI Endocrine: Endocrine: Reports no additional endocrine complaints Hematologic/Lymphatic: Hematologic/Lymphatic: Reports no additional hematologic/lymphatic complaints Allergic/Immunologic: Allergic/Immunologic: Reports no additional allergic/immunologic complaints [facility] Past Medical History Medical History (Updated 06/16/22 @ 23:46 by Jolene Adair NP) Cardiomegaly Chemical conjunctivitis of both eyes Chronic anemia Chronic anticoagulation 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trial flutter. CKD (chronic kidney disease) stage 3, GFR 30-59 ml/min Closed head injury Congestive heart failure Contusion of right shoulder Coronary artery disease Diabetes type 2, controlled Diarrhea Dysphagia Fall (~07/22/19) History of colon polyps History of esophageal dilatation History of pacemaker History of TIA (transient ischemic attack) and stroke Hyperlipidemia associated with type 2 diabetes mellitus Hypertension Hypertension associated with stage 3 chronic kidney disease due to type 2 diabetes mellitus Hyponatremia Hypothyroidism Paroxysmal atrial flutter Peripheral sensory neuropathy due to type 2 diabetes mellitus Rectal bleeding Schatzki's ring of distal esophagus Trigger finger, right middle finger Surgical History Surgical History History of appendectomy History of arthroplasty of right knee History of cholecystectomy History of colonoscopy with polypectomy Last colonoscopy in 01/2020 with descending colon polyp biopsied and showing ulcerated tubulovillous adenoma with high-grade dysplasia. History of mitral valve repair 4 vessel CABG and Mitral Valve Repair at [facility] in 1995.
[2022-06-17] VITALS (7 sets, daily range): BP systolic 114–150; BP diastolic 48–69; PULSE 44–80; RESP 15–20; TEMP 36.3–37.4; O2SAT 99–100
--- NOTE | 2022-06-17 | ECHO_ITS ---
Patient Info Name: Dinorah Thorpe Age: 86 years : 1935 Gender: Female Ht: 64 in Wt: 119 lbs BSA: 1.56 m2 HR: 64 bpm BP: 150 / 69 mmHg Technical Quality: Good Exam Date: 06/17/2022 2:17 PM Exam Location: [facility] Patient Status: Inpatient Admit Date: 06/16/2022 Staff Ordering Physician: Jim Herr DO Research Scientist: Sebastien Marcial RDCS, RT Attending Provider: Juma Rivera MD Referring Physician: Nemesio CARROLL; Exam Type: CA echo doppler color flow Study Info Indications R53.1 - Weakness Complete two-dimensional, color flow and Doppler transthoracic echocardiogram is performed. Strain analysis performed. Summary 1. Complete two-dimensional, color flow and Doppler transthoracic echocardiogram is performed. 2. Left ventricular chamber dimension is mildly enlarged. 3. Left ventricular systolic function is normal, estimated at 55-60%. 4. There is mildly increased left ventricular wall thickness. 5. The left ventricular diastolic function is grade I diastolic dysfunction. 6. E/e' 21 is elevated. 7. Global longitudinal strain is abnormal at -9.2%. 8. Right ventricular systolic function is mildly reduced and with abnormal TAPSE 1.4 cm. 9. Linear artifact in right ventricle suggestive of catheter(s), pacemaker lead(s), or ICD lead(s). 10. Right ventricular chamber dimension is mildly enlarged. 11. Left atrial chamber dimension is mildly enlarged. 12. Linear artifact in the right atrium suggestive of catheter(s), pacemaker lead(s), or ICD lead(s). 13. There is mild aortic valve sclerosis. 14. The mitral valve has moderately calcified leaflets. 15. There is mild mitral valve regurgitation. 16. There is mild tricuspid valve regurgitation. 17. No pulmonary hypertension, estimated pulmonary arterial systolic pressure is 38 mmHg. 18. There is trace pulmonic regurgitation. Left Ventricle E/e' 21 is elevated. Global longitudinal strain is abnormal at -9.2%. Left ventricular chamber dimension is mildly enlarged. Left ventricular systolic function is normal, estimated at 55-60%. There is mildly increased left ventricular wall thickness. The left ventricular diastolic function is grade I diastolic dysfunction. Right Ventricle Right ventricular systolic function is mildly reduced and with abnormal TAPSE 1.4 cm. Linear artifact in right ventricle suggestive of catheter(s), pacemaker lead(s), or ICD lead(s). Right ventricular chamber dimension is mildly enlarged. Left Atria Left atrial chamber dimension is mildly enlarged. Right Atria Linear artifact in the right atrium suggestive of catheter(s), pacemaker lead(s), or ICD lead(s). Right atrial chamber dimension is normal. Aortic Valve The aortic valve is trileaflet. There is mild aortic valve sclerosis. There is no aortic valve stenosis. There is no aortic valve regurgitation. Pulmonic Valve There is trace pulmonic regurgitation. Mitral Valve The mitral valve has moderately calcified leaflets. There is no mitral valve stenosis. There is mild mitral valve regurgitation. Tricuspid Valve There is mild tricuspid valve regurgitation. No pulmonary hypertension, estimated pulmonary arterial systolic pressure is 38 mmHg. Pericardium/Pleural There is no pericardial effusion. Inferior Vena Cava Normal inferior vena cava with >50% collapse upon inspiration consistent with normal right atrial pressure, 5 mmHg. Aorta The aortic root size at the sinus of Valsalva is normal.
[2022-06-17 01:04] LABS: Troponin I < 0.012 ng/mL (0.000-0.034)
[2022-06-17 05:41] LABS: Basophils Percent Auto 0.4 % (0.2-1.2); Hematocrit 34.7 % (37.0-47.0); Hemoglobin 11.4 g/dL (12.0-15.0); Immature Granulocyte Absolute 0.02 K/mm3 (0.00-0.031); Immature Granulocyte Percent A 0.3 % (0-0.5); Lymphocytes Absolute Auto 1.07 K/mm3 (0.9-3.2); Lymphocytes Percent Auto 14.7 % (18.3-44.2); Mean Corpuscular HGB Conc 32.9 g/dl (32-36); Mean Corpuscular Hemoglobin 30.6 pg (26-34); Mean Corpuscular Volume 93.3 fl (80-100); Mean Platelet Volume 9.6 fl (7.4-10.4); Monocytes Absolute Auto 0.6 K/mm3 (0.1-0.6); Monocytes Percent Auto 8.6 % (2.6-8.5); Neutrophils Absolute Auto 5.6 K/mm3 (1.3-6.7); Platelet Count Result 183 k/mm3 (150-375); Red Blood Count 3.72 M/mm3 (4.2-5.4); Red Cell Distribution Width 12.5 % (11.5-14.5); White Blood Count 7.3 K/mm3 (4.5-10.0)
[2022-06-17 05:53] LABS: Alanine Aminotransferase 23 U/L (6-35); Albumin Level 3.8 g/dL (3.5-5.1); Alkaline Phosphatase 94 U/L (38-126); Anion Gap 8 mmol/L (8-16); Aspartate Amino Transferase 24 U/L (14-36); Bilirubin,Total 0.3 mg/dL (0.2-1.3); Blood Urea Nitrogen 17 mg/dL (7-17); Calcium 8.9 mg/dL (8.4-10.2); Carbon Dioxide 26 mmol/L (22-30); Chloride 103 mmol/L (98-107); Estimated CRCL calculation 44 ml/min; Estimated Glomerular Filt Rate > 60; Glucose 131 mg/dL (65-110); Magnesium 1.5 mg/dL (1.6-2.3); Potassium 3.9 mmol/L (3.4-5.0); Sodium 137 mmol/L (137-145)
[2022-06-17] MEDS: LEVOTHYROXINE SODIUM 112 MCG TABLET PO (05:53)
[2022-06-17 08:04] LABS: Glucose Point of Care 139 mg/dl (65-105)
[2022-06-17] MEDS: FERROUS SULFATE 324 MG TABLET PO (09:12)
[2022-06-17] MEDS: LOSARTAN POTASSIUM 50 MG TABLET BY MOUTH (09:13)
[2022-06-17] MEDS: POTASSIUM CHLORIDE 10 MEQ TABLET.ER PO (09:13)
[2022-06-17] MEDS: APIXABAN 2.5 MG TABLET BY MOUTH (09:13)
[2022-06-17] MEDS: ASPIRIN 81 MG ENTERIC TABLET PO (09:14)
[2022-06-17] MEDS: carvediloL 3.125 MG TABLET PO (09:14)
[2022-06-17] MEDS: CHOLECALCIFEROL 1,000 UNITS TABLET 4000 UNITS PO (09:15)
[2022-06-17] MEDS: ISOSORBIDE MONONITRATE 30 MG TAB.ER.24H BY MOUTH (09:16)
[2022-06-17] MEDS: FUROSEMIDE 40 MG TABLET BY MOUTH (09:16)
[2022-06-17] MEDS: MESALAMINE 400 MG DELAYED RELEASE CAPSULE 800 MG PO ×2 (09:16→12:27)
[2022-06-17] MEDS: PANTOPRAZOLE SODIUM IV 40 MG VIAL IV PUSH (09:17)
[2022-06-17] MEDS: MULTIVITAMINS THERAPEUTIC TAB (*BKC) 1 TABLET PO (09:17)
[2022-06-17] MEDS: INSULIN HUMAN ISOPHAN/REGULAR 70/30 (*BKC) 100 UNITS/ML 10 UNITS SUB-Q (09:40)
[2022-06-17] MEDS: MAGNESIUM SULF 4 GM/WATER100ML 4 GM/100 ML BAG IVPB (10:41)
--- NOTE | 2022-06-17 11:45 | PM.DS ---
DS: Admitting Diagnosis Discharge Date 06/17/22 1145 Admitting Diagnosis TIA, UTI DS: Discharge Diagnosis Discharge Diagnosis (1) Acute left-sided weakness: Code(s): R53.1 - Weakness Status: Acute Assessment and Plan: - PT and OT evaluation a greatly be appreciated. - MRI if able the Patient has a pacemaker which appears to be malfunctioning. - the patient had an echo on 11/04/2021 which was read as the following 1. Limited echocardiogram to assess atrial septum. ? 2. Agitated saline injection with and without valsalva maneuver opacified right sided cardiac chambers without shunt to left sided cardiac chambers. ? 3. Intact interatrial septum visualized by agitated saline imaging. - patient had carotid Dopplers which were less than 50% stenosis on the right internal and left internal carotid. On 11/03/2021. - continue with pravastatin - the patient is already on aspirin and apixaban. - neurology consult was greatly be appreciated. - continue aspirin (2) Acute UTI: Code(s): N39.0 - Urinary tract infection, site not specified Status: Acute Assessment and Plan: - the patient was started on Rocephin. -blood and urine cultures are pending. (3) A-fib: Code(s): I48.91 - Unspecified atrial fibrillation Status: Chronic Assessment and Plan: -The patient has a pacemaker but she had an EKG today that stated that her pacemaker is not capturing and has malfunction. - she has an irregular heart beat but her rate is controlled. -Continue with apixaban. -continue with Coreg. (4) Congestive heart failure: Qualifiers: Heart failure chronicity: chronic Heart failure type: unspecified Qualified Code(s): I50.9 - Heart failure, unspecified Code(s): I50.9 - Heart failure, unspecified Status: Chronic Assessment and Plan: -Her last echo was October of this year as mentioned above. -Continue with Coreg - continue with her Lasix dose from home. - continue with losartan (5) Diabetes mellitus: Code(s): E11.9 - Type 2 diabetes mellitus without complications Status: Acute Assessment and Plan: - Accu-Cheks AC and HS with sliding scale insulin. - continue with home insulin. (6) GERD (gastroesophageal reflux disease): Qualifiers: Esophagitis presence: without esophagitis Qualified Code(s): K21.9 - Gastro-esophageal reflux disease without esophagitis Code(s): K21.9 - Gastro-esophageal reflux disease without esophagitis Status: Acute Assessment and Plan: - IV pantoprazole (7) Hypertension: Code(s): I10 - Essential (primary) hypertension Status: Acute Assessment and Plan: -continue with Coreg -continue with Lasix -continue with isosorbide -continue with losartan -continue with spironolactone (8) Hypothyroidism: Qualifiers: Hypothyroidism type: unspecified Qualified Code(s): E03.9 - Hypothyroidism, unspecified Code(s): E03.9 - Hypothyroidism, unspecified Status: Acute Assessment and Plan: - check thyroid levels -continue levothyroxine. (9) Pacemaker: Code(s): Z95.0 - Presence of cardiac pacemaker Status: Acute Assessment and Plan: -the patient's EKG today stated that her pacemaker is malfunctioning. We will need to have her pacemaker interrogated. (10) TIA (transient ischemic attack): Code(s): G45.9 - Transient cerebral ischemic attack, unspecified Status: Acute Assessment and Plan: Seems to be more of a TIA Neurology consulted Continue home medications PT/OT DS: Summary Hospital Course Hospital Course: Patient is an 86 year old female with a past medical history of CKD, hyperlipidemia, hypertension, hyponatremia, hypothyroidism who presented to the ED with complaints of weakness on the left side. Patient stated that her symptoms started about 2 days ago however she is u
[2022-06-17 12:17] LABS: Glucose Point of Care 203 mg/dl (65-105)
[2022-06-17] MEDS: INSULIN ASPART (*BKC) 100 UNITS/ML SUB-Q (12:26)
[2022-06-17] MEDS: SPIRONOLACTONE 25 MG TABLET BY MOUTH (12:27)
--- NOTE | 2022-06-17 13:20 | WPDNEURCNPN ---
Assessment and Plan Assessment and plan (1) Acute left-sided weakness: Code(s): R53.1 - Weakness Status: Acute (2) TIA (transient ischemic attack): Code(s): G45.9 - Transient cerebral ischemic attack, unspecified Status: Acute Plan 1. TIA 2. Oldest 3 treatment as such Consult date: 06/17/22 Time Seen: 13:00 Reason for consult: Confusion with weakness HPI: Dinorah Thorpe is a 86 year old female admitted to the hospital through the emergency room for the complaints of confusion with one-sided weakness particularly the left side as per the information available in the emergency room the symptomatology started about 48 hours ago she reported that she normally walks with a cane but was unable to walk with a walker because of her left lower extremity weakness. Patient has been taking aspirin 81 mg daily in addition to insulin 10units subcu b.i.d. and duloxetine 20 mg delayed release daily she is allergic to multiple medications as outlined. And in addition she has ongoing history of chronic anticoagulation therapy because of the left atrial appendage thrombus on echo in December of 2017 and also because a history of atrial flutter. She does have ongoing history of congestive heart failure, type 2 diabetes mellitus, pacemaker in, she is not a drinker or smoker and her initial vital signs were normal with normal routine blood studies except the UA with 3+ leukocyte Estrace and elevated blood sugar, CT scan of the head revealed chronic left parietal lobe infarction with negative chest x-ray and normal EKG with no evidence of atrial fibrillation Review of Systems Review of Systems: All systems reviewed & are unremarkable except as noted in HPI and below [facility] Past Medical History Medical History (Updated 06/17/22 @ 13:32 by Sourav Barba MD) Cardiomegaly Chemical conjunctivitis of both eyes Chronic anemia Chronic anticoagulation 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trial flutter. CKD (chronic kidney disease) stage 3, GFR 30-59 ml/min Closed head injury Congestive heart failure Contusion of right shoulder Coronary artery disease Diabetes type 2, controlled Diarrhea Dysphagia Fall (~07/22/19) History of colon polyps History of esophageal dilatation History of pacemaker History of TIA (transient ischemic attack) and stroke Hyperlipidemia associated with type 2 diabetes mellitus Hypertension Hypertension associated with stage 3 chronic kidney disease due to type 2 diabetes mellitus Hyponatremia Hypothyroidism Paroxysmal atrial flutter Peripheral sensory neuropathy due to type 2 diabetes mellitus Rectal bleeding Schatzki's ring of distal esophagus Trigger finger, right middle finger Surgical History Surgical History History of appendectomy History of arthroplasty of right knee History of cholecystectomy History of colonoscopy with polypectomy Last colonoscopy in 01/2020 with descending colon polyp biopsied and showing ulcerated tubulovillous adenoma with high-grade dysplasia. History of mitral valve repair 4 vessel CABG and Mitral Valve Repair at [facility] in 1995. History of phacoemulsification of cataract of both eyes with intraocular lens implantation History of total abdominal hysterectomy and bilateral salpingo-oophorectomy S/P CABG (coronary artery bypass graft) 4 vessel CABG and Mitral Valve Repair at [facility] in 1995. Family History Family History Mother Carcinoma of colon Hypertension Father Family history of coronary artery disease Heart disease Hypertension Father Family history of coronary artery disease Social History Social History (Updated 06/16/22 @ 23:35 by Jolene Adair NP) Social History: the patient lives with her who is the durable power transactional attorney for healthcare. She has 1 son. She worked on their
--- NOTE | 2022-06-17 15:13 | PM.CNCAR ---
Assessment and Plan Assessment and plan (1) Pacemaker malfunction: Code(s): T82.111A - Breakdown (mechanical) of cardiac pulse generator (battery), initial encounter Status: Acute Assessment and Plan: Last full interrogation on 12/13/21 showed normal device function and patient is not dependent on it. Echo does not show any gross abnormality of pacemaker lead. And CXR shows leads to be in expected location. She adamantly wants to go home and since we would not do any invasive evaluation of pacemaker until after weekend, she can go home. Have her f/u with me on Monday in [place], and [place] [facility] [place] ventricular [place] check. (2) TIA (transient ischemic attack): Code(s): G45.9 - Transient cerebral ischemic attack, unspecified Status: Acute (3) CAD (coronary artery disease), autologous vein bypass graft: Code(s): I25.810 - Atherosclerosis of coronary artery bypass graft(s) without angina pectoris Status: Acute Assessment and Plan: On Isosorbide mononitrate 30 mg daily. (4) Paroxysmal atrial flutter: Code(s): I48.92 - Unspecified atrial flutter Status: Chronic Assessment and Plan: Minimal atrial tach/flutter on pacemaker interrogation. On Eliquis 2.5 mg BID as she had a stroke on Xarelto 15 mg daily. (5) Diastolic dysfunction: Code(s): I51.89 - Other ill-defined heart diseases Status: Acute Assessment and Plan: Systolic dysfunction and diastolic dysfunction. Edema of both legs. On Lasix 40 mg daily and Spironolactone. Advise to wear compression stockings during the day. History of Present Illness History of Present Illness Consult date/time: 06/17/22 15:13 Consult reason: Other (pacemaker malfunction) Reason For Visit: L sided weakness Narrative: Patient is a 86 yr old woman who is my regular cardiology patient presents to ER with left sided weakness. She has a history of CAD, CABG, hypertension, DM, dyslipidemia, [employer] pacemaker, PAT/atrial flutter, Thrombus of left atrial appendage on Xarelto. States that her left side was weak for most of the day yesterday and has since resolved. EKG noted ventricular lead was only capturing intermittently. She was hospitalized for chest pain recently and found to be musculoskeletal cause. Still having chest pains with exertion and with palpation of chest. Has mild edema of legs and orthopnea. She takes one Ensure a day. She reports PERRY walking minimal distance with her walker for the last 3 months. Denies chest pain, orthopnea, palpitations, edema. Cardiovascular Procedures Insulation Power Unit Tender:: CV Surgery (4 vessel CABG and MV repair at [facility].) - 1995 Echo/MUGA:: 11/03/21 Echo: EF 40-45%, mild LVE, diastolic dysfunction (E/e' 46), severe LAE, mild-mod MR, mod TR, RVSP 52 mmHg. 10/21/20 Echo: >70%, mild LVH, diastolic dysfunction (E/e' 20), severe LAE, mod MV thickening and mod MAC, mild MR, RVSP 41 mmHg. 03/31/20 Echo: EF 50-55%, mild LVH ,diastolic dysfunction (E/e' 23), mild biatrial enlargement, mild-mod TR, mild MR. MICHELLE (EF 55-60%, mod LVH, pacemaker leads, mod LAE, MINERVA thrombus, severe MAC, mild MR, mod TR, small atheroma in posterior aortic root.) - 12/26/2017 Echo (EF 55%, paradoxical septal motion, sigmoid hypertrophy, mod MAC, mean gradient 4.5 mmHg, linear artifact in RV suggestive of pacemaker.) - 10/05/2015 Electrophysiology:: 05/23/22 EKG: A sense- V paced rhythm, fusion complexes. 10/21/20 EKG: V. paced rhythm at 73 bpm. 03/30/20 EKG: AV paced rhythm. EKG (Electronic ventricular pacemaker at 70 bpm.) - 06/18/2018 EKG (Atrial flutter/tachycardia with V. rate 90 bpm; 2 V. paced complexes, LBBB.) - 12/11/2017 EKG (Sinus rhythm, LBBB.) - 11/23/2015 EKG (Sinus rhythm, LBBB.) - 09/06/2014 Stress Tests:: 02/23/22 Lexiscan myoview: negative; small infarct of mid inferolateral segment. EF 65%. MPI (Lexiscan myoview: Negative for ischemia.) - 01/28/2019 MPI (Lexiscan myoview: Negative for ische
== END 2022-06-17 16:46 | disposition home or self-care (01) ==
LOC: ANHED 16:59 → ANH3MEDSUR 19:44 → ANH3MED 21:21
PROVIDERS: Emergency Medicine; Nurse Practitioner; Admitting Provider Chiropractor; Emergency Provider Emergency Medicine; PCP Internal Medicine; Visit Provider Chiropractor
DX: R53.1 Weakness (principal); T82.111A Breakdown (mechanical) of cardiac pulse generator (battery), initial encounter; Y83.8 Other surgical procedures as the cause of abnormal reaction of the patient, or of later complication, without mention of misadventure at the time of the procedure; G45.9 Transient cerebral ischemic attack, unspecified; N39.0 Urinary tract infection, site not specified; I48.91 Unspecified atrial fibrillation; E11.22 Type 2 diabetes mellitus with diabetic chronic kidney disease; E11.42 Type 2 diabetes mellitus with diabetic polyneuropathy; E11.65 Type 2 diabetes mellitus with hyperglycemia; K21.9 Gastro-esophageal reflux disease without esophagitis; I13.0 Hypertensive heart and chronic kidney disease with heart failure and stage 1 through stage 4 chronic kidney disease, or unspecified chronic kidney disease; I50.9 Heart failure, unspecified; N18.30 Chronic kidney disease, stage 3 unspecified; I08.3 Combined rheumatic disorders of mitral, aortic and tricuspid valves; E03.9 Hypothyroidism, unspecified; Z95.0 Presence of cardiac pacemaker; D63.1 Anemia in chronic kidney disease; I25.10 Atherosclerotic heart disease of native coronary artery without angina pectoris; Z95.1 Presence of aortocoronary bypass graft; J32.4 Chronic pansinusitis; Z79.01 Long term (current) use of anticoagulants; Z86.73 Personal history of transient ischemic attack (TIA), and cerebral infarction without residual deficits; Z87.891 Personal history of nicotine dependence; Z86.718 Personal history of other venous thrombosis and embolism; Z79.82 Long term (current) use of aspirin; N13.0 Hydronephrosis with ureteropelvic junction obstruction; Z79.899 Other long term (current) drug therapy
CPT/HCPCS: 36415; 70450; 71045; 80053; 81001; 82948; 83735; 84443; 84484; 85025; 85610; 85730; 87040; 87086; 87147; 87181; 87186; 93005; 93306; 96365; 96375; 97161; 97165; 99285; A9270; C9113; G0378; J0696; J1815; J3475

== ENCOUNTER 2022-06-22 09:37 | Outpatient (CLI) | payer MEDICARE, SELFPAY ==
--- NOTE | ~2022-06-22 | MM_ITS ---
EXAMINATION: MM screening juice BI w rusty HISTORY: Screening TECHNIQUE: Craniocaudal and mediolateral oblique 3-D tomosynthesis images were obtained and synthetic 2-D images were generated. CAD analysis was submitted and interpreted. COMPARISON: Comparison to multiple prior studies sequentially, with oldest reviewed study dated 06/12. BREAST PARENCHYMAL COMPOSITION: The breasts are extremely dense, which lowers the sensitivity of mamm ography FINDINGS: There is no evidence of suspicious mass, calcification, or architectural distortion to sugg est malignancy in either breast. There has been no suspicious interval change. IMPRESSION: 1. No mammographic evidence of malignancy. 2. Recommend routine screening mammography in one year. BI-RADS Category 1: Negative Reviewed, dictated and finalized at location A.
== END 2022-06-22 09:38 | disposition home or self-care (01) ==
LOC: CHSIMG 09:38
PROVIDERS: PCP Internal Medicine; Visit Provider Internal Medicine
DX: Z12.31 Encounter for screening mammogram for malignant neoplasm of breast (principal)
CPT/HCPCS: 77063; 77067

== ENCOUNTER 2022-07-15 19:30 | Emergency (ER) | payer MEDICARE, SELFPAY ==
[2022-07-15 19:47] VITALS: BP 161/97; PULSE 80; RESP 16; TEMP 36.4; O2SAT 99
--- NOTE | 2022-07-15 19:50 | ED.NAVMDI ---
HPI - Nausea/Vomiting/Diarrhea General Chief complaint: Nausea/Vomiting/Diarrhea Stated complaint: diarrhea/vomit Source: patient and RN notes reviewed Mode of arrival: wheelchair Limitations: no limitations History of Present Illness MD elicited complaint: nausea, vomiting and diarrhea Onset (ago): day(s) (1) Description of vomiting: food contents Description of diarrhea: semi-solid Associated nausea: Yes Associated abdominal pain: No Location of pain: none Exacerbating factors: eating Relieving factors: none Associated symptoms: myalgias, headaches and other (mild headache) Related Data Home Medications Medication Instructions Recorded Confirmed levothyroxine 112 mcg capsule 112 mcg PO QAM 10/21/20 07/15/22 potassium chloride 10 mEq 10 meq PO DAILY 04/15/21 07/15/22 tablet,extended release aspirin 81 mg tablet,delayed 81 mg PO DAILY 05/10/21 07/15/22 release (Adult Low Dose Aspirin) multivitamin 1 tablet PO DAILY 07/07/21 07/15/22 ferrous sulfate 325 mg (65 mg 325 mg PO QAM 11/02/21 07/15/22 iron) tablet (FeroSul) insulin NPH-regular 70-30 U-100 10 unit subcut BID 11/02/21 07/15/22 insulin 100 unit/mL subcutaneous pen (Humulin 70/30 U-100 KwikPen) cholecalciferol (vitamin D3) 100 150 mcg PO WEEKLY 06/16/22 07/15/22 mcg (4,000 unit) capsule mesalamine 1.2 gram tablet,delayed 4.8 g PO QAM 06/16/22 07/15/22 release (Lialda) pravastatin 10 mg tablet 10 mg PO DAILY 06/30/22 07/15/22 Allergies Allergy/AdvReac Type Severity Reaction Status Date / Time adhesive tape Allergy Severe BLISTERS Verified 06/30/22 14:17 amiodarone Allergy Severe N/V, Verified 06/30/22 14:17 HEADACHE, HOSPITALIZED atorvastatin Allergy Severe SWELLING Verified 06/30/22 14:17 clindamycin Allergy Severe TACHYCARDIA Verified 06/30/22 14:17 gabapentin Allergy Severe CHF Verified 06/30/22 14:17 gemfibrozil Allergy Severe ELEVATED Verified 06/30/22 14:17 CHOLESTEROL nifedipine Allergy Severe SWELLING Verified 06/30/22 14:17 norfloxacin Allergy Severe SWELLING Verified 06/30/22 14:17 adhesive Allergy Intermediate Unknown Verified 06/30/22 14:17 chlorpheniramine [Ornade] Allergy Intermediate Unknown Verified 06/30/22 14:17 doxycycline Allergy Intermediate Unknown Verified 06/30/22 14:17 erythromycin base Allergy Intermediate Unknown Verified 06/30/22 14:17 flurbiprofen [Ansaid] Allergy Intermediate Unknown Verified 06/30/22 14:17 tetracycline Allergy Intermediate Unconscious Verified 06/30/22 14:17 tramadol [Ultram] Allergy Intermediate Unknown Verified 06/30/22 14:17 cephalexin Allergy Mild Rash Verified 06/30/22 14:17 ciprofloxacin Allergy Unknown Unknown Verified 06/30/22 14:17 diclofenac Allergy Unknown Unknown Verified 06/30/22 14:17 hydroxyzine Allergy Unknown Unknown Verified 06/30/22 14:17 Penicillins Allergy Unknown Unknown Verified 06/30/22 14:17 propoxyphene Allergy Unknown Unknown Verified 06/30/22 14:17 terfenadine Allergy Unknown Unknown Verified 06/30/22 14:17 butorphanol AdvReac Severe RESTLESSNES Verified 06/30/22 14:17 S cerivastatin AdvReac Severe ABDOMINAL Verified 06/30/22 14:17 PAIN, H/A dexamethasone AdvReac Severe IRRITATED Verified 06/30/22 14:17 EYES duloxetine AdvReac Severe H/A Verified 06/30/22 14:17 enalaprilat AdvReac Severe COUGH Verified 06/30/22 14:17 guaifenesin AdvReac Severe NERVOUSNESS Verified 06/30/22 14:17 hydrocodone AdvReac Severe N/V Verified 06/30/22 14:17 isosorbide AdvReac Severe H/A Verified 06/30/22 14:17 levofloxacin AdvReac Severe VOMITING Verified 06/30/22 14:17 meperidine AdvReac Severe H/A Verified 06/30/22 14:17 nitroglycerin AdvReac Severe VOMITING Verified 06/30/22 14:17 oxycodone AdvReac Severe VOMITING Verified 06/30/22 14:17 phenylephrine AdvReac Severe NERVOUSNESS Verified 06/30/22 14:17 phenylpropanolamine AdvReac Severe NERVOUSNESS Verified 06/30/22 14:17 prednisone AdvReac Severe H/A Verified 06/30/22 14:17 rofecoxib AdvReac Severe UPSET Verified 06/30/22 14:1
[2022-07-15 19:57] VITALS: BP 140/67; PULSE 80; RESP 18; O2SAT 97
[2022-07-15 20:15] LABS: Basophils Absolute Auto 0.02 K/mm3 (0.00-0.10); Basophils Percent Auto 0.4 % (0.0-1.0); Hematocrit 33.3 % (35.0-42.0); Hemoglobin 10.8 g/dL (11.7-13.8); Immature Granulocyte Absolute 0.01 K/mm3 (0.00-0.00); Immature Granulocyte Percent A 0.2 % (0.0-0.0); Lymphocytes Absolute Auto 0.46 K/mm3 (1.10-4.50); Lymphocytes Percent Auto 9.4 % (18.0-42.0); Mean Corpuscular HGB Conc 32.4 g/dL (32.0-36.0); Mean Corpuscular Volume 95.7 fL (78.0-102.0); Mean Platelet Volume 9.5 fl (9.2-11.8); Monocytes Absolute Auto 0.29 K/mm3 (0.10-0.90); Neutrophils Absolute Auto 4.1 K/mm3 (1.7-7.2); Platelet Count Result 175 K/mm3 (150-420); Red Blood Count 3.48 M/mm3 (4.20-5.40); Red Cell Distribution Width 13.3 % (11.6-14.4); White Blood Count 4.9 K/mm3 (4.8-10.8)
[2022-07-15 20:31] LABS: Alanine Aminotransferase 21 U/L (14-59); Albumin Level 3.5 g/dL (3.4-5.0); Alkaline Phosphatase 108 U/L (46-116); Anion Gap 9 mmol/L (8-16); Aspartate Amino Transferase 13 U/L (15-37); Bilirubin,Total 0.5 mg/dL (0.00-1.00); Blood Urea Nitrogen 24 mg/dL (7-18); Carbon Dioxide 27 mmol/L (21-32); Chloride 104 mmol/L (98-108); Estimated CRCL calculation 28 ml/min; Estimated Glomerular Filt Rate 55; Glucose 162 mg/dL (70-99); Osmolality Calculated 298 mOsm/kg (285-295); Potassium 3.8 mmol/L (3.5-5.1); Sodium 140 mmol/L (136-145); Total Protein 7.3 g/dL (6.4-8.2)
[2022-07-15 20:33] LABS: Magnesium 1.6 mg/dL (1.8-2.4)
[2022-07-15 20:34] LABS: Lactic Acid Reflex 0.7 mmol/L (0.4-2.0)
[2022-07-15 20:37] LABS: Appearance Urine Slightly Cloudy (Clear); Bilirubin Urine Negative (Negative); Blood Urine Negative (Negative); Glucose Urine UA Negative (Negative); Ketones Urine Negative (Negative); Leukocyte Esterase Ur 3+ LEU/UL (Negative); Nitrate Urine Negative (Negative); Protein Urine Negative (Negative); Specific Grav Ur 1.015 (1.010-1.020); Urobilinogen Urine 0.2 mg/dL (0.2-1.0)
[2022-07-15 20:42] LABS: Add Urine Microscopic? YES; Color Urine Light Yellow (Yellow); WBC Urine >75 /hpf (0-3)
[2022-07-15 20:43] LABS: Bacteria Urine Trace /hpf; Squamous Epithelial Cell Urine Rare /hpf (Few)
[2022-07-15 20:52] LABS: SARS-CoV-2 RNA PCR Negative (Negative)
[2022-07-15 20:54] LABS: Influenza A QL RT-PCR Negative (Negative); Influenza B QL RT-PCR Negative (Negative)
[2022-07-15] MEDS: SULFAMETHOXAZOLE/TRIMETHOPRIM 800/160 MG DS TABLET 1 TAB PO (21:06)
[2022-07-15 21:09] VITALS: BP 140/88; PULSE 80; RESP 20; TEMP 37.2; O2SAT 97
--- NOTE | 2022-07-18 17:29 | PC.NURSE ---
macrobid 100mg twice daily for 7 days called into [facility] in [place] per dr mckinney for positive urine culture report. patient is made aware.
== END 2022-07-15 21:20 | disposition home or self-care (01) ==
PROVIDERS: Emergency Provider Emergency Medicine; PCP Internal Medicine
DX: N39.0 Urinary tract infection, site not specified (principal); Z20.822 Contact with and (suspected) exposure to COVID-19; I50.9 Heart failure, unspecified; I25.10 Atherosclerotic heart disease of native coronary artery without angina pectoris; E11.9 Type 2 diabetes mellitus without complications; E03.9 Hypothyroidism, unspecified
CPT/HCPCS: 36415; 80053; 81001; 83605; 83735; 85025; 87077; 87086; 87088; 87186; 87502; 99283; A9270; U0003; U0005

== ENCOUNTER 2022-07-20 18:40 | Emergency (ER) | payer MEDICARE, SELFPAY ==
--- NOTE | ~2022-07-20 | CT_ITS ---
EXAMINATION: CT abdomen pelvis w con DATE: 07/20/2022 22:09 INDICATION: ABDOMINAL PAIN TECHNIQUE: Computed tomography (CT) of the abdomen and pelvis was performed with 100 mL Omnipaque-350 intravenous contrast. Automated exposure control and iterative reconstruction technique were employe d. The dose-length product was 219.73 mGy-cm. COMPARISON: 05/24/2022. FINDINGS: Lower thorax: Incompletely visualized pacing wires. Mild cardiomegaly. Small hiatal hernia. Liver: Normal. Biliary/Gallbladder: Gallbladder is absent. No concerning bile duct dilation. Pancreas: Pancreatic atrophy. Spleen: Normal. Adrenals:Bilateral adrenal thickening may reflect hyperplasia, with possible adenoma on the left. Kidneys: Mild cortical thinning. Bilateral hypodensities, too small to characterize. No suspicious ma ss. No obstructing calcification or hydronephrosis. GI tract: Distal esophageal and gastric wall edema No small or large bowel dilation. Normal appendix. Diverticulosis without diverticulitis. Mesentery/Peritoneum: No ascites, mass, or free air. Retroperitoneum: No mass. Atherosclerotic abdominal aortic and/or arterial calcifications. Pelvis: Uterus surgically absent. Markedly distended thin-walled urinary bladder, similar to the prio r study. Soft Tissues: Soft tissues and body wall unremarkable. Bones: No acute osseous finding. IMPRESSION: Esophagitis/gastritis. Chronic urinary retention. Reviewed, dictated and finalized at location K. SUPERVISOR
[2022-07-20 20:20] VITALS: BP 111/70; PULSE 80; RESP 20; TEMP 36.6; O2SAT 98
--- NOTE | 2022-07-20 20:30 | ED.GENADULT ---
HPI - General Adult General Chief complaint: Urogenital-Female Stated complaint: reaction to nitrofurantoin mono 100mg cap Time Seen by Provider: 07/20/22 20:17 History of Present Illness HPI narrative: Dinorah is an 87F with a PMH of a pacemaker, CVA, CHF, anemia, colitis, SBO, NSTEMI, HTN, GERD, atrial flutter, GERD and recurrent UTIs. She had a UTI recently and the culture grew enterococcus so she was switched to macrobid. After being switched she has diffuse cramping through her abdomen. She had a BM right before arrival. She has some nausea but no vomiting. It is a diffuse pain throughout her abdomen. There are no fevers or chills. No CP or SOB. She has had many abdominal surgeries including appendectomy, cholecystectomy, TAHBSO. Related Data Home Medications Medication Instructions Recorded Confirmed levothyroxine 112 mcg capsule 112 mcg PO QAM 10/21/20 07/15/22 potassium chloride 10 mEq 10 meq PO DAILY 04/15/21 07/15/22 tablet,extended release aspirin 81 mg tablet,delayed 81 mg PO DAILY 05/10/21 07/15/22 release (Adult Low Dose Aspirin) multivitamin 1 tablet PO DAILY 07/07/21 07/15/22 ferrous sulfate 325 mg (65 mg 325 mg PO QAM 11/02/21 07/15/22 iron) tablet (FeroSul) insulin NPH-regular 70-30 U-100 10 unit subcut BID 11/02/21 07/15/22 insulin 100 unit/mL subcutaneous pen (Humulin 70/30 U-100 KwikPen) cholecalciferol (vitamin D3) 100 150 mcg PO WEEKLY 06/16/22 07/15/22 mcg (4,000 unit) capsule mesalamine 1.2 gram tablet,delayed 4.8 g PO QAM 06/16/22 07/15/22 release (Lialda) pravastatin 10 mg tablet 10 mg PO DAILY 06/30/22 07/15/22 Allergies Allergy/AdvReac Type Severity Reaction Status Date / Time adhesive tape Allergy Severe BLISTERS Verified 06/30/22 14:17 amiodarone Allergy Severe N/V, Verified 06/30/22 14:17 HEADACHE, HOSPITALIZED atorvastatin Allergy Severe SWELLING Verified 06/30/22 14:17 clindamycin Allergy Severe TACHYCARDIA Verified 06/30/22 14:17 gabapentin Allergy Severe CHF Verified 06/30/22 14:17 gemfibrozil Allergy Severe ELEVATED Verified 06/30/22 14:17 CHOLESTEROL nifedipine Allergy Severe SWELLING Verified 06/30/22 14:17 norfloxacin Allergy Severe SWELLING Verified 06/30/22 14:17 adhesive Allergy Intermediate Unknown Verified 06/30/22 14:17 chlorpheniramine [Ornade] Allergy Intermediate Unknown Verified 06/30/22 14:17 doxycycline Allergy Intermediate Unknown Verified 06/30/22 14:17 erythromycin base Allergy Intermediate Unknown Verified 06/30/22 14:17 flurbiprofen [Ansaid] Allergy Intermediate Unknown Verified 06/30/22 14:17 tetracycline Allergy Intermediate Unconscious Verified 06/30/22 14:17 tramadol [Ultram] Allergy Intermediate Unknown Verified 06/30/22 14:17 cephalexin Allergy Mild Rash Verified 06/30/22 14:17 ciprofloxacin Allergy Unknown Unknown Verified 06/30/22 14:17 diclofenac Allergy Unknown Unknown Verified 06/30/22 14:17 hydroxyzine Allergy Unknown Unknown Verified 06/30/22 14:17 Penicillins Allergy Unknown Unknown Verified 06/30/22 14:17 propoxyphene Allergy Unknown Unknown Verified 06/30/22 14:17 terfenadine Allergy Unknown Unknown Verified 06/30/22 14:17 butorphanol AdvReac Severe RESTLESSNES Verified 06/30/22 14:17 S cerivastatin AdvReac Severe ABDOMINAL Verified 06/30/22 14:17 PAIN, H/A dexamethasone AdvReac Severe IRRITATED Verified 06/30/22 14:17 EYES duloxetine AdvReac Severe H/A Verified 06/30/22 14:17 enalaprilat AdvReac Severe COUGH Verified 06/30/22 14:17 guaifenesin AdvReac Severe NERVOUSNESS Verified 06/30/22 14:17 hydrocodone AdvReac Severe N/V Verified 06/30/22 14:17 isosorbide AdvReac Severe H/A Verified 06/30/22 14:17 levofloxacin AdvReac Severe VOMITING Verified 06/30/22 14:17 meperidine AdvReac Severe H/A Verified 06/30/22 14:17 nitroglycerin AdvReac Severe VOMITING Verified 06/30/22 14:17 oxycodone AdvReac Severe VOMITING Verified 06/30/22 14:17 phenylephrine AdvReac Severe NERVOUSNESS Verified 06/30/22 14:17 phenylpropanolamine AdvR
[2022-07-20 21:06] LABS: Basophils Absolute Auto 0.04 K/mm3 (0.00-0.10); Basophils Percent Auto 0.6 % (0.0-1.0); Hematocrit 33.6 % (35.0-42.0); Hemoglobin 10.8 g/dL (11.7-13.8); Immature Granulocyte Absolute 0.02 K/mm3 (0.00-0.00); Immature Granulocyte Percent A 0.3 % (0.0-0.0); Lymphocytes Percent Auto 13.2 % (18.0-42.0); Mean Corpuscular HGB Conc 32.1 g/dL (32.0-36.0); Mean Corpuscular Hemoglobin 31.2 pg (27.0-31.0); Mean Corpuscular Volume 97.1 fL (78.0-102.0); Mean Platelet Volume 9.6 fl (9.2-11.8); Monocytes Absolute Auto 0.53 K/mm3 (0.10-0.90); Monocytes Percent Auto 7.8 % (2.0-11.0); Neutrophils Absolute Auto 5.3 K/mm3 (1.7-7.2); Neutrophils Percent Auto 78.1 % (50.0-70.0); Platelet Count Result 187 K/mm3 (150-420); Red Blood Count 3.46 M/mm3 (4.20-5.40); Red Cell Distribution Width 13.4 % (11.6-14.4); White Blood Count 6.8 K/mm3 (4.8-10.8)
[2022-07-20 21:30] LABS: Alanine Aminotransferase 40 U/L (14-59); Albumin Level 3.8 g/dL (3.4-5.0); Alkaline Phosphatase 126 U/L (46-116); Anion Gap 8 mmol/L (8-16); Aspartate Amino Transferase 47 U/L (15-37); Bilirubin,Total 0.4 mg/dL (0.00-1.00); Blood Urea Nitrogen 21 mg/dL (7-18); CRP < 0.5 mg/dL (0.0-0.9); Carbon Dioxide 26 mmol/L (21-32); Chloride 105 mmol/L (98-108); Estimated Glomerular Filt Rate 48; Glucose 123 mg/dL (70-99); Lipase 27 U/L (73-393); Osmolality Calculated 292 mOsm/kg (285-295); Sodium 139 mmol/L (136-145); Total Protein 7.5 g/dL (6.4-8.2)
[2022-07-20] MEDS: ACETAMINOPHEN 500 MG TABLET 1000 MG PO (21:31)
[2022-07-20] MEDS: ONDANSETRON HCL ODT 4 MG TABLET PO (21:32)
[2022-07-20 21:35] LABS: Prothrombin Time 11.2 Seconds (9.50-12.10)
[2022-07-20 21:40] LABS: Lactic Acid Reflex 0.5 mmol/L (0.4-2.0)
[2022-07-20 22:15] VITALS: BP 102/60; PULSE 70; RESP 18; O2SAT 97
[2022-07-20 22:35] LABS: Appearance Urine Clear (Clear); Bilirubin Urine Negative (Negative); Blood Urine Negative (Negative); Glucose Urine UA Negative (Negative); Ketones Urine Negative (Negative); Leukocyte Esterase Ur 1+ (Negative); Nitrate Urine Negative (Negative); Protein Urine Negative (Negative); Urobilinogen Urine 0.2 mg/dL (0.2-1.0)
[2022-07-20 22:40] LABS: Add Urine Microscopic? YES; Color Urine Light Yellow (Yellow); RBC Urine 0-2 /hpf (0-2); Squamous Epithelial Cell Urine Rare /hpf (Few); WBC Urine 0-3 /hpf (0-3)
[2022-07-20 22:41] LABS: Bacteria Urine Trace /hpf
[2022-07-20 23:03] VITALS: BP 150/53; PULSE 68; RESP 20; TEMP 37.1; O2SAT 97
== END 2022-07-20 23:05 | disposition home or self-care (01) ==
PROVIDERS: Emergency Provider Family Medicine; PCP Internal Medicine
DX: R33.9 Retention of urine, unspecified (principal); K29.70 Gastritis, unspecified, without bleeding; I12.9 Hypertensive chronic kidney disease with stage 1 through stage 4 chronic kidney disease, or unspecified chronic kidney disease; N18.30 Chronic kidney disease, stage 3 unspecified; E11.9 Type 2 diabetes mellitus without complications; E03.9 Hypothyroidism, unspecified; Z87.891 Personal history of nicotine dependence
CPT/HCPCS: 36415; 74177; 80053; 81001; 83605; 83690; 85025; 85610; 86140; 99284; A9270; Q9967

== ENCOUNTER 2022-07-23 14:30 | Emergency (ER) | payer MEDICARE, SELFPAY ==
--- NOTE | ~2022-07-23 | CT_ITS ---
EXAMINATION: CT abdomen pelvis w con DATE: 07/23/2022 16:35 INDICATION: Abdominal pain since allergic reaction to antibiotic one month ago TECHNIQUE: Computed tomography (CT) of the abdomen and pelvis was performed with 100 CC Omnipaque 350 intravenous contrast. Automated exposure control and iterative reconstruction technique were employe d. Exam dose: 249.92 mGy-cm total exam DLP. COMPARISON: 07/20/2022 CT abdomen pelvis FINDINGS: The lung bases are clear of infiltrate or consolidation. Status post sternotomy. Right atrial and right ventricular pacemaker leads. No pericardial or pleural effusion. No hepatic, splenic or pancreatic space-occupying mass lesion. Status post cholecystectomy. No bile duct or pancreatic duct dilatation. No pancreatic calcification. Normal morphology of the adrenal glands. Several left renal cysts. No urinary tract calculus or hydroureteronephrosis. The urinary bladder is distended. No bladder wall thickening. No bowel obstruction, bowel wall thickening, pneumatosis or intraperitoneal free air. There is prominent atherosclerotic calcification but normal caliber of the abdominal aorta and iliac and femoral arteries. No intraperitoneal or retroperitoneal or pelvic mass lesion or adenopathy or ascites. Degenerative changes of the thoracic and lumbar spine. No suspicious osteolytic or osteoblastic lesio ns noted. Osteopenia. Old healed right superior and inferior pubic ramus fractures. Bilateral hip osteoarthriti s. IMPRESSION: Status post cholecystectomy Status post hysterectomy Left renal cysts No bowel obstruction or free air Reviewed, dictated and finalized at [facility]. Reviewed, dictated and finalized at [facility]. HOLIC COUNSELOR
[2022-07-23 14:50] VITALS: BP 156/69; PULSE 82; RESP 16; TEMP 36.9; O2SAT 100
--- NOTE | 2022-07-23 15:18 | ECG_ITS ---
Measurements Intervals [place] Rate: 76 P: 57 TN: 249 QRS: 72 QRSD: 154 T: -75 QT: 424 QTc: 477 Interpretive Statements ATRIAL SENSE- ELECTRONIC VENTRICULAR PACEMAKER NO FURTHER INTERPRETATION IS POSSIBLE ATYPICAL ECG COMPARED TO ECG 06/16/2022 15:47:52 PACEMAKER MALFUNCTION- THERE IS FAILURE TO CAPTURE NO LONGER PRESENT Electronically Signed On 07-23-2022 19:51:23 APPLIANCE WORKER by Jim Herr D.O.
[2022-07-23] MEDS: ONDANSETRON INJ 4 MG/2 ML VIAL IV PUSH (15:27)
[2022-07-23] MEDS: SODIUM CHLORIDE 0.9% IV 1,000 ML 999 ML IV CONT (15:28)
[2022-07-23 16:22] LABS: Basophils Absolute Auto 0.03 K/mm3 (0.00-0.10); Basophils Percent Auto 0.6 % (0.0-1.0); Hematocrit 30.4 % (35.0-42.0); Hemoglobin 10.4 g/dL (11.7-13.8); Immature Granulocyte Absolute 0.01 K/mm3 (0.00-0.00); Immature Granulocyte Percent A 0.2 % (0.0-0.0); Lymphocytes Absolute Auto 0.69 K/mm3 (1.10-4.50); Lymphocytes Percent Auto 14.6 % (18.0-42.0); Mean Corpuscular HGB Conc 34.2 g/dL (32.0-36.0); Mean Corpuscular Hemoglobin 33.4 pg (27.0-31.0); Mean Corpuscular Volume 97.7 fL (78.0-102.0); Mean Platelet Volume 10.2 fl (9.2-11.8); Monocytes Absolute Auto 0.34 K/mm3 (0.10-0.90); Monocytes Percent Auto 7.2 % (2.0-11.0); Neutrophils Absolute Auto 3.7 K/mm3 (1.7-7.2); Neutrophils Percent Auto 77.4 % (50.0-70.0); Platelet Count Result 196 K/mm3 (150-420); Red Blood Count 3.11 M/mm3 (4.20-5.40); Red Cell Distribution Width 13.4 % (11.6-14.4); White Blood Count 4.7 K/mm3 (4.8-10.8)
[2022-07-23 16:34] LABS: Appearance Urine Clear (Clear); Bilirubin Urine Negative (Negative); Glucose Urine UA 2+ (Negative); Ketones Urine Negative (Negative); Leukocyte Esterase Ur 1+ LEU/UL (Negative); Nitrate Urine Negative (Negative); Protein Urine Negative (Negative); Urobilinogen Urine 0.2 mg/dL (0.2-1.0)
[2022-07-23 16:36] LABS: Alanine Aminotransferase 116 U/L (14-59); Albumin Level 3.2 g/dL (3.4-5.0); Alkaline Phosphatase 177 U/L (46-116); Anion Gap 11 mmol/L (8-16); Aspartate Amino Transferase 60 U/L (15-37); Bilirubin,Total 0.3 mg/dL (0.00-1.00); Blood Urea Nitrogen 16 mg/dL (7-18); CRP < 0.5 mg/dL (0.0-0.9); Calcium 8.3 mg/dL (8.5-10.1); Carbon Dioxide 25 mmol/L (21-32); Chloride 104 mmol/L (98-108); Estimated Glomerular Filt Rate 55; Glucose 205 mg/dL (70-99); Lipase 44 U/L (73-393); Osmolality Calculated 297 mOsm/kg (285-295); Partial Thromboplastin Time 28.5 SEC (23.90-30.70); Potassium 3.7 mmol/L (3.5-5.1); Prothrombin Time 11.3 Seconds (9.50-12.10); Sodium 140 mmol/L (136-145); Total Protein 6.6 g/dL (6.4-8.2)
[2022-07-23 16:37] LABS: Add Urine Microscopic? YES; Blood Urine Trace-Intact (Negative); Color Urine Light Yellow (Yellow)
[2022-07-23 16:38] LABS: Lactic Acid Reflex 1.4 mmol/L (0.4-2.0)
[2022-07-23 16:42] LABS: RBC Urine Noted /hpf (0-2); Squamous Epithelial Cell Urine Rare /hpf (Few); WBC Urine Rare /hpf (0-3)
[2022-07-23 18:00] VITALS: BP 150/59; PULSE 77; RESP 16; TEMP 36.7; O2SAT 99
--- NOTE | 2022-07-23 18:11 | ED.ABDPAIN ---
HPI - Abdominal Pain General Chief Complaint: Abdominal Pain Stated Complaint: severe stomach pain Time Seen by Provider: 07/23/22 14:39 Source: patient and family Mode of arrival: ambulatory History of Present Illness HPI narrative: This is a 87-year-old female with abdominal cramping and watery diarrhea was taking antibiotics for colitis and UTI currently finished her antibiotics and has some cramping abdominal pain with episodes of watery diarrhea patient denies any chest pain or shortness of breath no nausea or vomiting no flank pain no dysuria. MD elicited complaint: abdominal pain Onset (ago): day(s) Pain Consistency: intermittent Location: none Quality: cramping Related Data Home Medications Medication Instructions Recorded Confirmed levothyroxine 112 mcg capsule 112 mcg PO QAM 10/21/20 07/23/22 potassium chloride 10 mEq 10 meq PO DAILY 04/15/21 07/23/22 tablet,extended release aspirin 81 mg tablet,delayed 81 mg PO DAILY 05/10/21 07/23/22 release (Adult Low Dose Aspirin) multivitamin 1 tablet PO DAILY 07/07/21 07/23/22 ferrous sulfate 325 mg (65 mg 325 mg PO QAM 11/02/21 07/23/22 iron) tablet (FeroSul) insulin NPH-regular 70-30 U-100 10 unit subcut BID 11/02/21 07/23/22 insulin 100 unit/mL subcutaneous pen (Humulin 70/30 U-100 KwikPen) cholecalciferol (vitamin D3) 100 150 mcg PO WEEKLY 06/16/22 07/23/22 mcg (4,000 unit) capsule mesalamine 1.2 gram tablet,delayed 4.8 g PO QAM 06/16/22 07/23/22 release (Lialda) pravastatin 10 mg tablet 10 mg PO DAILY 06/30/22 07/23/22 Allergies Allergy/AdvReac Type Severity Reaction Status Date / Time adhesive tape Allergy Severe BLISTERS Verified 07/23/22 14:53 amiodarone Allergy Severe N/V, Verified 07/23/22 14:53 HEADACHE, HOSPITALIZED atorvastatin Allergy Severe SWELLING Verified 07/23/22 14:53 clindamycin Allergy Severe TACHYCARDIA Verified 07/23/22 14:53 gabapentin Allergy Severe CHF Verified 07/23/22 14:53 gemfibrozil Allergy Severe ELEVATED Verified 07/23/22 14:53 CHOLESTEROL nifedipine Allergy Severe SWELLING Verified 07/23/22 14:53 norfloxacin Allergy Severe SWELLING Verified 07/23/22 14:53 adhesive Allergy Intermediate Unknown Verified 07/23/22 14:53 chlorpheniramine [Ornade] Allergy Intermediate Unknown Verified 07/23/22 14:53 doxycycline Allergy Intermediate Unknown Verified 07/23/22 14:53 erythromycin base Allergy Intermediate Unknown Verified 07/23/22 14:53 flurbiprofen [Ansaid] Allergy Intermediate Unknown Verified 07/23/22 14:53 tetracycline Allergy Intermediate Unconscious Verified 07/23/22 14:53 tramadol [Ultram] Allergy Intermediate Unknown Verified 07/23/22 14:53 cephalexin Allergy Mild Rash Verified 07/23/22 14:53 ciprofloxacin Allergy Unknown Unknown Verified 07/23/22 14:53 diclofenac Allergy Unknown Unknown Verified 07/23/22 14:53 hydroxyzine Allergy Unknown Unknown Verified 07/23/22 14:53 Penicillins Allergy Unknown Unknown Verified 07/23/22 14:53 propoxyphene Allergy Unknown Unknown Verified 07/23/22 14:53 terfenadine Allergy Unknown Unknown Verified 07/23/22 14:53 butorphanol AdvReac Severe RESTLESSNES Verified 07/23/22 14:53 S cerivastatin AdvReac Severe ABDOMINAL Verified 07/23/22 14:53 PAIN, H/A dexamethasone AdvReac Severe IRRITATED Verified 07/23/22 14:53 EYES duloxetine AdvReac Severe H/A Verified 07/23/22 14:53 enalaprilat AdvReac Severe COUGH Verified 07/23/22 14:53 guaifenesin AdvReac Severe NERVOUSNESS Verified 07/23/22 14:53 hydrocodone AdvReac Severe N/V Verified 07/23/22 14:53 isosorbide AdvReac Severe H/A Verified 07/23/22 14:53 levofloxacin AdvReac Severe VOMITING Verified 07/23/22 14:53 meperidine AdvReac Severe H/A Verified 07/23/22 14:53 nitroglycerin AdvReac Severe VOMITING Verified 07/23/22 14:53 oxycodone AdvReac Severe VOMITING Verified 07/23/22 14:53 phenylephrine AdvReac Severe NERVOUSNESS Verified 07/23/22 14:53 phenylpropanolamine AdvReac Severe NERVOUSNESS Verified 07/23/22 14:53 prednisone
[2022-07-23 18:23] VITALS: BP 150/59; PULSE 77; RESP 16; TEMP 36.7; O2SAT 99
--- NOTE | 2022-07-26 14:25 | PC.NURSE ---
URINE CULTURE FINAL RESULT: NO GROWTH. NO ACTION NEEDED
== END 2022-07-23 18:24 | disposition home or self-care (01) ==
PROVIDERS: Emergency Provider Emergency Medicine; PCP Internal Medicine
DX: R10.9 Unspecified abdominal pain (principal); R19.7 Diarrhea, unspecified; I50.9 Heart failure, unspecified; I25.10 Atherosclerotic heart disease of native coronary artery without angina pectoris; E11.9 Type 2 diabetes mellitus without complications; I10 Essential (primary) hypertension; E03.9 Hypothyroidism, unspecified; Z87.891 Personal history of nicotine dependence
CPT/HCPCS: 36415; 74177; 80053; 81001; 83605; 83690; 85025; 85610; 85730; 86140; 87040; 87086; 93005; 96361; 96374; 96375; 99284; J0131; J2405; J7030; Q9967

== ENCOUNTER 2022-08-02 11:21 | Outpatient (CLI) | payer MEDICARE, SELFPAY ==
[2022-08-02 11:42] LABS: Hematocrit 32.4 % (35.0-42.0); Hemoglobin 10.6 g/dL (11.7-13.8); Mean Corpuscular HGB Conc 32.7 g/dL (32.0-36.0); Mean Corpuscular Hemoglobin 31.9 pg (27.0-31.0); Mean Corpuscular Volume 97.6 fL (78.0-102.0); Mean Platelet Volume 9.5 fl (9.2-11.8); Platelet Count Result 190 K/mm3 (150-420); Red Blood Count 3.32 M/mm3 (4.20-5.40); Red Cell Distribution Width 13.6 % (11.6-14.4); White Blood Count 4.7 K/mm3 (4.8-10.8)
[2022-08-02 12:33] LABS: Alanine Aminotransferase 31 U/L (14-59); Albumin Level 3.6 g/dL (3.4-5.0); Alkaline Phosphatase 113 U/L (46-116); Anion Gap 10 mmol/L (8-16); Aspartate Amino Transferase 16 U/L (15-37); Bilirubin,Total 0.3 mg/dL (0.00-1.00); Blood Urea Nitrogen 17 mg/dL (7-18); Calcium 8.6 mg/dL (8.5-10.1); Carbon Dioxide 28 mmol/L (21-32); Chloride 106 mmol/L (98-108); Estimated Glomerular Filt Rate > 60; Glucose 164 mg/dL (70-99); Osmolality Calculated 303 mOsm/kg (285-295); Potassium 3.8 mmol/L (3.5-5.1); Sodium 144 mmol/L (136-145); Total Protein 6.7 g/dL (6.4-8.2)
[2022-08-02 12:38] LABS: CRP < 0.5 mg/dL (0.0-0.9)
[2022-08-02 12:58] LABS: Erythrocyte Sedimentation Rate 28 mm/hr (0-20)
== END 2022-08-02 11:22 | disposition home or self-care (01) ==
LOC: CHSLAB 11:24
PROVIDERS: PCP Internal Medicine; Visit Provider Nurse Practitioner Family
DX: K52.9 Noninfective gastroenteritis and colitis, unspecified (principal); R10.9 Unspecified abdominal pain
CPT/HCPCS: 36415; 80053; 85027; 85652; 86140

== ENCOUNTER 2022-08-03 11:09 | Outpatient (CLI) | payer MEDICARE, SELFPAY ==
[2022-08-14 00:38] LABS: Calprotectin, Stool 67 mcg/g
== END 2022-08-03 11:10 | disposition home or self-care (01) ==
LOC: CHSLAB 11:10
PROVIDERS: PCP Internal Medicine; Visit Provider Nurse Practitioner Family
DX: K52.9 Noninfective gastroenteritis and colitis, unspecified (principal); R10.9 Unspecified abdominal pain
CPT/HCPCS: 83993; 87045; 87177; 87209; 87427; 87493

== ENCOUNTER 2022-08-06 10:07 | Outpatient (CLI) | payer MEDICARE, SELFPAY ==
[2022-08-06 10:39] LABS: Basophils Absolute Auto 0.04 K/mm3 (0.00-0.10); Basophils Percent Auto 0.7 % (0.0-1.0); Hematocrit 35.4 % (35.0-42.0); Hemoglobin 11.3 g/dL (11.7-13.8); Immature Granulocyte Absolute 0.05 K/mm3 (0.00-0.00); Immature Granulocyte Percent A 0.9 % (0.0-0.0); Lymphocytes Absolute Auto 0.93 K/mm3 (1.10-4.50); Lymphocytes Percent Auto 16.2 % (18.0-42.0); Mean Corpuscular HGB Conc 31.9 g/dL (32.0-36.0); Mean Corpuscular Hemoglobin 31.6 pg (27.0-31.0); Mean Corpuscular Volume 98.9 fL (78.0-102.0); Mean Platelet Volume 10.1 fl (9.2-11.8); Monocytes Absolute Auto 0.49 K/mm3 (0.10-0.90); Monocytes Percent Auto 8.5 % (2.0-11.0); Neutrophils Absolute Auto 4.2 K/mm3 (1.7-7.2); Neutrophils Percent Auto 73.7 % (50.0-70.0); Platelet Count Result 207 K/mm3 (150-420); Red Blood Count 3.58 M/mm3 (4.20-5.40); Red Cell Distribution Width 13.5 % (11.6-14.4); White Blood Count 5.7 K/mm3 (4.8-10.8)
[2022-08-06 10:45] LABS: Hemoglobin A1C 6.7 % (<5.7)
[2022-08-06 11:18] LABS: Alanine Aminotransferase 26 U/L (14-59); Albumin Level 3.9 g/dL (3.4-5.0); Alkaline Phosphatase 115 U/L (46-116); Anion Gap 6 mmol/L (8-16); Aspartate Amino Transferase 15 U/L (15-37); Bilirubin,Total 0.4 mg/dL (0.00-1.00); Blood Urea Nitrogen 20 mg/dL (7-18); Calcium 8.8 mg/dL (8.5-10.1); Carbon Dioxide 33 mmol/L (21-32); Chloride 104 mmol/L (98-108); Estimated Glomerular Filt Rate > 60; Glucose 79 mg/dL (70-99); Osmolality Calculated 297 mOsm/kg (285-295); Sodium 143 mmol/L (136-145); Total Protein 7.1 g/dL (6.4-8.2)
[2022-08-06 11:46] LABS: CRP < 0.5 mg/dL (0.0-0.9)
== END 2022-08-06 10:08 | disposition home or self-care (01) ==
LOC: CHSLAB 10:09
PROVIDERS: PCP Internal Medicine; Visit Provider Internal Medicine
DX: K51.90 Ulcerative colitis, unspecified, without complications (principal); E11.9 Type 2 diabetes mellitus without complications
CPT/HCPCS: 36415; 80053; 83036; 85025; 86140

== ENCOUNTER 2022-08-17 12:37 | Outpatient (CLI) | payer MEDICARE, SELFPAY ==
[2022-08-17 13:48] LABS: Ferritin 69 ng/mL (8-252); GGT 44 U/L (5-55); Iron 57 ug/dL (50-170); Percent Iron Saturation 21 % (12-57)
[2022-08-20 10:56] LABS: Ceruloplasmin 24 mg/dL (18-53)
[2022-08-21 12:54] LABS: Actin Antibody (IgG) <20 U (<20); LKM 1 Antibody <=20.0 U (<=20.0)
[2022-08-22 15:45] LABS: Mitochondrial (M2) Ab (IgG) <=20.0 U (<=20.0)
[2022-08-23 11:58] LABS: Anti Nuclear Antibody Pattern Nuclear, Speckled
[2022-08-23 19:57] LABS: Alpha Fetoprotein Tumor Marker 1.6 ng/mL (<6.1)
[2022-08-25 20:14] LABS: Alpha-1-Antitrypsin, QN 171 mg/dL (83-199)
[2022-08-27 12:37] LABS: ALT 17 U/L (6-29); Alpha-2-Macroglobulin 313 mg/dL (106-279); Apolipoprotein A1 170 mg/dL (101-198); Fibrosis Score 0.48; Fibrosis Stage F2; GGT 27 U/L (3-65); Haptoglobin 178 mg/dL (43-212); Necroinflammat Act Grade A0; Total Bilirubin 0.6 mg/dL (0.2-1.2)
== END 2022-08-17 12:38 | disposition home or self-care (01) ==
LOC: CHSLAB 12:38
PROVIDERS: PCP Internal Medicine; Visit Provider Nurse Practitioner Family
DX: R74.8 Abnormal levels of other serum enzymes (principal); E78.2 Mixed hyperlipidemia
CPT/HCPCS: 36415; 81596; 82103; 82105; 82390; 82728; 82977; 83516; 83520; 83540; 83550; 86038; 86039; 86376

== ENCOUNTER 2022-08-18 11:49 | Outpatient (CLI) | payer MEDICARE, SELFPAY | END 2022-08-18 11:50 | disposition home or self-care (01) | LOC: CHSLAB 11:51 | PROVIDERS: PCP Internal Medicine; Visit Provider Nurse Practitioner Family | DX: R19.7 Diarrhea, unspecified (principal) | CPT/HCPCS: 87493 ==

== ENCOUNTER 2022-08-27 14:51 | Emergency (ER) | payer MEDICARE, SELFPAY ==
--- NOTE | ~2022-08-27 | CT_ITS ---
EXAMINATION: CT lumbar spine wo con DATE: 08/27/2022 15:48 INDICATION: Nontraumatic low back pain TECHNIQUE: Computed tomography (CT) of the lumbar spine was performed without intravenous contrast. A utomated exposure control and iterative reconstruction technique were employed. The dose-length produ ct was 913.43 mGy-cm. COMPARISON: 09/28/2018 FINDINGS: 10 degrees lumbar dextroscoliosis. Sagittal alignment is normal. Vertebral body heights are normal. M oderate to severe disc height loss at L1-L2 and L5-S1. Mild disc height loss at L2-L3 through L4-L5. Moderate to severe bilateral sacroiliac osteoarthritis. Partially visualized cardiac pacemaker leads with lead tips at the right atrium and right ventricle. Median sternotomy wires and mediastinal surgi teagan clips are seen, likely from prior coronary artery bypass grafting. Coronary artery stenting. Chol ecystectomy clips in right upper quadrant on the cooler service supervisor topogram. The following disc levels are specif ically discussed: T10-T11: The disc does not extend beyond the endplate margin. There is mild bilateral facet osteoarth ritis. There is mild bilateral neural foraminal stenosis. There is no central canal stenosis. T11-T12: The disc does not extend beyond the endplate margin. There is mild right and moderate left f acet joint osteoarthritis. There is mild bilateral neural foraminal stenosis. There is no central can al stenosis. T12-L1: Disc is mildly bulging. There is mild right and moderate left facet joint osteoarthritis. The re is no neural foraminal stenosis. There is no central canal stenosis. L1-L2: Posterior disc osteophyte complex. There is moderate bilateral facet joint osteoarthritis. The re is moderate left and moderate to severe right neural foraminal stenosis. There is mild to moderate central canal stenosis. L2-L3: Posterior disc osteophyte complex. There is mild to moderate bilateral facet joint osteoarthri tis. There is mild right and mild to moderate left neural foraminal stenosis. There is mild to modera te central canal stenosis. L3-L4: Posterior disc osteophyte complex. There is moderate left and mild to moderate right facet jeff nt osteoarthritis. There is moderate bilateral neural foraminal stenosis. There is moderate central c anal stenosis. L4-L5: Disc is bulging. There is severe bilateral facet joint osteoarthritis. There is moderate right and moderate to severe left neural foraminal stenosis. There is severe central canal stenosis. L5-S1: Disc is mildly bulging. There is severe bilateral facet joint osteoarthritis. There is moderat e left and moderate to severe right neural foraminal stenosis. There is mild central canal stenosis. IMPRESSION: 1. No significant change in severe lumbar spondylosis as detailed above. Reviewed, dictated and finalized at [facility]. REPAIRER
--- NOTE | ~2022-08-27 | XR_ITS ---
EXAMINATION: XR pelvis 1-2V DATE: 08/27/2022 15:48 INDICATION: Bilateral hip pain TECHNIQUE: An anteroposterior view of the pelvis was obtained. COMPARISON: CT abdomen and pelvis dated 07/23/2022 and pelvis radiograph dated 05/31/2022 moderate kev ateral hip osteoarthritis. FINDINGS: Old bilateral superior and inferior pubic rami fractures which have healed in essentially anatomic al ignment. No acute fractures. Chondrocalcinosis and moderate osteoarthritis at the bilateral hips. Ent hesopathic ossification along the bilateral greater trochanters and at the bilateral ischial tuberosi ty origins of the proximal hamstring tendons. Moderate to severe bilateral sacroiliac osteoarthritis. Scattered vascular calcifications in the pelvis and proximal thighs. Surgical clips at the left groi n. IMPRESSION: 1. Old healed bilateral superior and inferior pubic rami fractures. No acute osseous abnormality. 2. Chondrocalcinosis and Reviewed, dictated and finalized at [facility]. ORATE CLAIMS EXAMINER IMPRESSION: 1. Old healed bilateral superior and inferior pubic rami fractures. No acute os seous abnormality. 2. Chondrocalcinosis and
[2022-08-27 14:51] VITALS: BP 114/52; PULSE 66; RESP 18; TEMP 36.6; O2SAT 100
--- NOTE | 2022-08-27 15:04 | ED.BACK ---
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 no fever or chills. MD elicited complaint: back pain Onset (ago): day(s) ( Started yesterday.) Timing: constant Severity: severe Similar Symptoms Previously: No Quality: aching Location: lumbar spine Radiation: none Exacerbating factors: movement Relieving factors: immobilization Associated symptoms: denies other symptoms Work related injury: No Related Data Home Medications Medication Instructions Recorded Confirmed levothyroxine 112 mcg capsule 112 mcg PO QAM 10/21/20 08/16/22 potassium chloride 10 mEq 10 meq PO DAILY 04/15/21 08/16/22 tablet,extended release aspirin 81 mg tablet,delayed 81 mg PO DAILY 05/10/21 08/16/22 release (Adult Low Dose Aspirin) multivitamin 1 tablet PO DAILY 07/07/21 08/16/22 ferrous sulfate 325 mg (65 mg 325 mg PO QAM 11/02/21 08/16/22 iron) tablet (FeroSul) insulin NPH-regular 70-30 U-100 10 unit subcut BID 11/02/21 08/16/22 insulin 100 unit/mL subcutaneous pen (Humulin 70/30 U-100 KwikPen) cholecalciferol (vitamin D3) 100 150 mcg PO WEEKLY 06/16/22 08/16/22 mcg (4,000 unit) capsule mesalamine 1.2 gram tablet,delayed 4.8 g PO QAM 06/16/22 08/16/22 release (Lialda) pravastatin 10 mg tablet 10 mg PO DAILY 06/30/22 08/16/22 Allergies Allergy/AdvReac Type Severity Reaction Status Date / Time adhesive tape Allergy Severe BLISTERS Verified 08/16/22 10:59 amiodarone Allergy Severe N/V, Verified 08/16/22 10:59 HEADACHE, HOSPITALIZED atorvastatin Allergy Severe SWELLING Verified 08/16/22 10:59 clindamycin Allergy Severe TACHYCARDIA Verified 08/16/22 10:59 gabapentin Allergy Severe CHF Verified 08/16/22 10:59 gemfibrozil Allergy Severe ELEVATED Verified 08/16/22 10:59 CHOLESTEROL nifedipine Allergy Severe SWELLING Verified 08/16/22 10:59 norfloxacin Allergy Severe SWELLING Verified 08/16/22 10:59 adhesive Allergy Intermediate Unknown Verified 08/16/22 10:59 chlorpheniramine [Ornade] Allergy Intermediate Unknown Verified 08/16/22 10:59 doxycycline Allergy Intermediate Unknown Verified 08/16/22 10:59 erythromycin base Allergy Intermediate Unknown Verified 08/16/22 10:59 flurbiprofen [Ansaid] Allergy Intermediate Unknown Verified 08/16/22 10:59 tetracycline Allergy Intermediate Unconscious Verified 08/16/22 10:59 tramadol [Ultram] Allergy Intermediate Unknown Verified 08/16/22 10:59 cephalexin Allergy Mild Rash Verified 08/16/22 10:59 ciprofloxacin Allergy Unknown Unknown Verified 08/16/22 10:59 diclofenac Allergy Unknown Unknown Verified 08/16/22 10:59 hydroxyzine Allergy Unknown Unknown Verified 08/16/22 10:59 Penicillins Allergy Unknown Unknown Verified 08/16/22 10:59 propoxyphene Allergy Unknown Unknown Verified 08/16/22 10:59 terfenadine Allergy Unknown Unknown Verified 08/16/22 10:59 butorphanol AdvReac Severe RESTLESSNES Verified 08/16/22 10:59 S cerivastatin AdvReac Severe ABDOMINAL Verified 08/16/22 10:59 PAIN, H/A dexamethasone AdvReac Severe IRRITATED Verified 08/16/22 10:59 EYES duloxetine AdvReac Severe H/A Verified 08/16/22 10:59 enalaprilat AdvReac Severe COUGH Verified 08/16/22 10:59 guaifenesin AdvReac Severe NERVOUSNESS Verified 08/16/22 10:59 hydrocodone AdvReac Severe N/V Verified 08/16/22 10:59 isosorbide AdvReac Severe H/A Verified 08/16/22 10:59 levofloxacin AdvReac Severe VOMITING Verified 08/16/22 10:59 meperidine AdvRea
[2022-08-27 16:15] LABS: Add Urine Microscopic? YES; Bilirubin Urine Negative (Negative); Blood Urine 1+ (Negative); Color Urine Yellow (Yellow); Glucose Urine UA Negative (Negative); Ketones Urine Negative (Negative); Leukocyte Esterase Ur 3+ LEU/UL (Negative); Nitrate Urine Negative (Negative); Protein Urine 1+ (Negative); Urobilinogen Urine 0.2 mg/dL (0.2-1.0)
[2022-08-27 16:20] LABS: Appearance Urine Turbid (Clear)
[2022-08-27 16:21] LABS: Bacteria Urine 4+ /hpf; Mucus Urine Heavy /lpf; RBC Urine >75 /hpf (0-2); WBC Urine >75 /hpf (0-3)
[2022-08-27 16:45] VITALS: BP 110/58; PULSE 64; RESP 20; TEMP 36.8; O2SAT 94
[2022-08-27] MEDS: NITROFURANTOIN MONOHYD MACROCR 100 MG CAP PO (16:56)
--- NOTE | 2022-08-30 12:36 | PC.NURSE ---
final urine culture report greater than 100,000 cfu of escherichia coli. pt is on macrobid, per sensitivities it is susceptible. no further action needed.
== END 2022-08-27 17:01 | disposition home or self-care (01) ==
PROVIDERS: Emergency Provider Internal Medicine Critical Care Medicine; PCP Internal Medicine
DX: M47.816 Spondylosis without myelopathy or radiculopathy, lumbar region (principal); N39.0 Urinary tract infection, site not specified; M16.12 Unilateral primary osteoarthritis, left hip; M16.11 Unilateral primary osteoarthritis, right hip; I25.10 Atherosclerotic heart disease of native coronary artery without angina pectoris; E11.22 Type 2 diabetes mellitus with diabetic chronic kidney disease; I13.0 Hypertensive heart and chronic kidney disease with heart failure and stage 1 through stage 4 chronic kidney disease, or unspecified chronic kidney disease; N18.30 Chronic kidney disease, stage 3 unspecified; I50.9 Heart failure, unspecified; E03.9 Hypothyroidism, unspecified; Z86.73 Personal history of transient ischemic attack (TIA), and cerebral infarction without residual deficits
CPT/HCPCS: 72131; 72170; 81001; 87077; 87086; 87088; 87186; 99284; A9270

== ENCOUNTER 2022-08-31 21:22 | Observation (INO) | payer MEDICARE, SELFPAY ==
[2022-08-31 21:25] VITALS: BP 139/53; PULSE 66; RESP 16; TEMP 36.8; O2SAT 96
--- NOTE | 2022-08-31 21:41 | ED.GENADULT ---
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 She has numerous drug allergies including to most/all pain medications including codeine, hydrocodone, oxycodone, diclofenac, tramadol. She has had a positive ARAMIS screen recently (08/17/2022). She was seen here 08/27/2022, 4 days ago, and was noted to have severe bilateral hip and lower back pain. She had a UTI, and was treated with macrobid. Her urine culture revealed >100K E coli, sensitive to nitrofurantoin (which she is on) and sensitive to Rocephin. She also had imaging of the lumbar spine and pelvis (see results below). This revealed severe osteoarthritis and severe spondylosis with severe spinal stenosis. She was discharged only on antibiotics. She did not receive pain medications. She lives at home with her , who is having a difficult time caring for her as she is unable to ambulate without significant assistance. She now returns due to debilitating bilateral hip pain. She is unable to ambulate without significant assistance. Her assists her with putting her shoes and socks and clothes. They live at home. He is not sure if he can take care of her anymore. No falls or other changes since 4 days ago. No fevers. Related Data Home Medications Medication Instructions Recorded Confirmed levothyroxine 112 mcg capsule 112 mcg PO QAM 10/21/20 08/31/22 potassium chloride 10 mEq 10 meq PO DAILY 04/15/21 08/31/22 tablet,extended release aspirin 81 mg tablet,delayed 81 mg PO DAILY 05/10/21 08/31/22 release (Adult Low Dose Aspirin) multivitamin 1 tablet PO DAILY 07/07/21 08/31/22 ferrous sulfate 325 mg (65 mg 325 mg PO QAM 11/02/21 08/31/22 iron) tablet (FeroSul) insulin NPH-regular 70-30 U-100 10 unit subcut BID 11/02/21 08/31/22 insulin 100 unit/mL subcutaneous pen (Humulin 70/30 U-100 Thad) cholecalciferol (vitamin D3) 100 150 mcg PO WEEKLY 06/16/22 08/31/22 mcg (4,000 unit) capsule mesalamine 1.2 gram tablet,delayed 4.8 g PO QAM 06/16/22 08/31/22 release (Lialda) pravastatin 10 mg tablet 10 mg PO DAILY 06/30/22 08/31/22 Allergies Allergy/AdvReac Type Severity Reaction Status Date / Time adhesive tape Allergy Severe BLISTERS Verified 08/16/22 10:59 amiodarone Allergy Severe N/V, Verified 08/16/22 10:59 HEADACHE, HOSPITALIZED atorvastatin Allergy Severe SWELLING Verified 08/16/22 10:59 clindamycin Allergy Severe TACHYCARDIA Verified 08/16/22 10:59 gabapentin Allergy Severe CHF Verified 08/16/22 10:59 gemfibrozil Allergy Severe ELEVATED Verified 08/16/22 10:59 CHOLESTEROL nifedipine Allergy Severe SWELLING Verified 08/16/22 10:59 norfloxacin Allergy Severe SWELLING Verified 08/16/22 10:59 adhesive Allergy Intermediate Unknown Verified 08/16/22 10:59 chlorpheniramine [Ornade] Allergy Intermediate Unknown Verified 08/16/22 10:59 doxycycline Allergy Intermediate Unknown Verified 08/16/22 10:59 erythromycin base Allergy Intermediate Unknown Verified 08/16/22 10:59 flurbiprofen [Ansaid] Allergy Intermediate Unknown Verified 08/16/22 10:59 tetracycline Allergy Intermediate Unconscious Verified 08/16/22 10:59 tramadol [Ultram] Allergy Intermediate Unknown Verified 08/16/22 10:59 cephalexin Allergy Mild Rash Verified 08/16/22 10:59 ciprofloxacin Allergy Unknown Unknown Verified 08/16/22 10:59 diclofenac Allergy Unknown Unknown Verified 08/16/22 10:59 hydroxyzine Allergy Unknown Unknown Verified 08/16/22 10:59 Penicillins Allergy Unknown Unknown Verified 08/16/22 10:59 propoxyphene Allergy Unknown Unknown Verified 08/16/22 10:59 terfenadine Allergy Unknown Unknown Verified 08/16/22 10:59 butorphanol AdvReac Severe RESTLESSNES Verifie
[2022-08-31 22:00] VITALS: BP 120/88; PULSE 70; RESP 20; O2SAT 98
[2022-08-31 22:31] LABS: Basophils Absolute Auto 0.02 K/mm3 (0.00-0.10); Basophils Percent Auto 0.3 % (0.0-1.0); Hematocrit 30.9 % (35.0-42.0); Hemoglobin 9.9 g/dL (11.7-13.8); Immature Granulocyte Absolute 0.04 K/mm3 (0.00-0.00); Immature Granulocyte Percent A 0.6 % (0.0-0.0); Lymphocytes Absolute Auto 0.47 K/mm3 (1.10-4.50); Lymphocytes Percent Auto 6.6 % (18.0-42.0); Mean Corpuscular Hemoglobin 30.8 pg (27.0-31.0); Mean Corpuscular Volume 96.3 fL (78.0-102.0); Monocytes Absolute Auto 0.72 K/mm3 (0.10-0.90); Monocytes Percent Auto 10.1 % (2.0-11.0); Neutrophils Absolute Auto 5.9 K/mm3 (1.7-7.2); Neutrophils Percent Auto 82.4 % (50.0-70.0); Platelet Count Result 133 K/mm3 (150-420); Red Blood Count 3.21 M/mm3 (4.20-5.40); Red Cell Distribution Width 13.2 % (11.6-14.4); White Blood Count 7.2 K/mm3 (4.8-10.8)
[2022-08-31 22:42] LABS: Appearance Urine Cloudy (Clear); Bilirubin Urine Negative (Negative); Blood Urine Trace-Intact (Negative); Glucose Urine UA Negative (Negative); Ketones Urine Negative (Negative); Leukocyte Esterase Ur 3+ LEU/UL (Negative); Nitrate Urine Negative (Negative); Protein Urine Trace (Negative); Urobilinogen Urine 0.2 mg/dL (0.2-1.0)
[2022-08-31 22:48] LABS: Add Urine Microscopic? YES; Bacteria Urine 3+ /hpf; Color Urine Dark Yellow (Yellow); Squamous Epithelial Cell Urine Few /hpf (Few); WBC Urine >75 /hpf (0-3)
[2022-08-31 22:48] LABS: Alanine Aminotransferase 27 U/L (14-59); Albumin Level 2.8 g/dL (3.4-5.0); Alkaline Phosphatase 104 U/L (46-116); Anion Gap 12 mmol/L (8-16); Aspartate Amino Transferase 14 U/L (15-37); Bilirubin,Total 0.3 mg/dL (0.00-1.00); Blood Urea Nitrogen 53 mg/dL (7-18); Calcium 8.2 mg/dL (8.5-10.1); Carbon Dioxide 22 mmol/L (21-32); Chloride 101 mmol/L (98-108); Estimated CRCL calculation 16 ml/min; Estimated Glomerular Filt Rate 27; Glucose 187 mg/dL (70-99); Osmolality Calculated 299 mOsm/kg (285-295); Potassium 3.8 mmol/L (3.5-5.1); Sodium 135 mmol/L (136-145); Total Protein 6.7 g/dL (6.4-8.2)
[2022-08-31] MEDS: methylPREDNISolone SOD SUCC 125 MG VIAL 80 MG IV PUSH (22:49)
[2022-08-31] MEDS: MORPHINE SULFATE (*CRX) 4 MG/ML INJ IV PUSH (22:50)
[2022-08-31] MEDS: NITROFURANTOIN MONOHYD MACROCR 100 MG CAP PO (22:50)
[2022-08-31 23:00] VITALS: BP 132/60; PULSE 62; RESP 16; O2SAT 95
[2022-08-31] MEDS: ORPHENADRINE CITRATE 30 MG/ML 2 ML VIAL IV PUSH (23:17)
[2022-08-31] MEDS: diphenhydrAMINE HCl INJ 50 MG/ML VIAL 25 MG IV PUSH (23:18)
[2022-08-31] MEDS: ACETAMINOPHEN 325 MG TABLET 650 MG PO (23:18)
[2022-08-31] MEDS: SODIUM CHLORIDE 0.9% IV 1,000 ML 999 ML IV CONT (23:19)
--- NOTE | 2022-08-31 23:20 | PC.NURSE ---
ERP asks to talk to Hospitalist for a possible admission. RN calls and informs Hospitalist of pt and she states she will look at the chart.
[2022-08-31 23:42] LABS: SARS-CoV-2 RNA PCR Negative (Negative)
[2022-09-01] VITALS: BP 132/61; PULSE 64; RESP 16; O2SAT 95
[2022-09-01 00:35] VITALS: BP 131/50; PULSE 64; RESP 16; TEMP 36.3; O2SAT 95
--- NOTE | 2022-09-01 00:38 | PC.NURSE ---
Order for D5LR discontinued as ordered by Rell Bernal NP; New orders for IV fluid in place.
[2022-09-01] MEDS: SODIUM CHLORIDE 0.9% IV 1,000 ML 125 ML IV CONT (01:07)
--- NOTE | 2022-09-01 01:13 | PC.NURSE ---
Patient admitted to room 227 from the ER, is alert and oriented X's 3.
[2022-09-01 01:14] VITALS: BMI 21.1
[2022-09-01 01:28] VITALS: BP 151/49; PULSE 57; RESP 20; TEMP 36.1; O2SAT 97
[2022-09-01 05:36] LABS: Basophils Absolute Auto 0.01 K/mm3 (0.00-0.10); Basophils Percent Auto 0.2 % (0.0-1.0); Hematocrit 32.1 % (35.0-42.0); Immature Granulocyte Absolute 0.05 K/mm3 (0.00-0.00); Lymphocytes Absolute Auto 0.39 K/mm3 (1.10-4.50); Lymphocytes Percent Auto 7.8 % (18.0-42.0); Mean Corpuscular HGB Conc 31.2 g/dL (32.0-36.0); Mean Corpuscular Hemoglobin 30.7 pg (27.0-31.0); Mean Corpuscular Volume 98.5 fL (78.0-102.0); Mean Platelet Volume 11.3 fl (9.2-11.8); Monocytes Absolute Auto 0.14 K/mm3 (0.10-0.90); Monocytes Percent Auto 2.8 % (2.0-11.0); Neutrophils Absolute Auto 4.4 K/mm3 (1.7-7.2); Neutrophils Percent Auto 88.2 % (50.0-70.0); Platelet Count Result 123 K/mm3 (150-420); Red Blood Count 3.26 M/mm3 (4.20-5.40); Red Cell Distribution Width 13.2 % (11.6-14.4)
[2022-09-01 05:51] LABS: Anion Gap 11 mmol/L (8-16); Calcium 8.2 mg/dL (8.5-10.1); Carbon Dioxide 21 mmol/L (21-32); Chloride 104 mmol/L (98-108); Estimated CRCL calculation 19 ml/min; Estimated Glomerular Filt Rate 29; Glucose 226 mg/dL (70-99); Potassium 4.1 mmol/L (3.5-5.1); Sodium 136 mmol/L (136-145)
[2022-09-01 06:00] VITALS: BP 151/49; PULSE 57; RESP 18; TEMP 36.1; O2SAT 97
[2022-09-01] MEDS: LEVOTHYROXINE SODIUM 112 MCG TABLET PO (06:12)
[2022-09-01 06:25] LABS: Blood Urea Nitrogen 54 mg/dL (7-18); Osmolality Calculated 303 mOsm/kg (285-295)
[2022-09-01 07:35] VITALS: BP 141/47; PULSE 63; RESP 18; TEMP 35.9; O2SAT 99
[2022-09-01 08:22] LABS: Glucose Point of Care 255 mg/dl (65-105)
[2022-09-01] MEDS: PRAVASTATIN SODIUM 10 MG TABLET PO (09:12)
[2022-09-01] MEDS: LOSARTAN POTASSIUM 50 MG TABLET BY MOUTH (09:12)
[2022-09-01] MEDS: APIXABAN 2.5 MG TABLET BY MOUTH (09:12)
[2022-09-01] MEDS: POTASSIUM CHLORIDE 10 MEQ TABLET PO (09:13)
[2022-09-01] MEDS: NITROFURANTOIN MONOHYD MACROCR 100 MG CAP PO (09:13)
--- NOTE | 2022-09-01 11:39 | PM.SD2 ---
Same Day Admit/Disch: HPI History of Present Illness Chief complaint: YING/UTI/Weakness Narrative: Dinorah Thorpe is a 87 [place] [address] Emergency Room Visit Note Signed Patient: Dinorah Thorpe HPI - General Adult General Chief complaint: Unspecified Stated complaint: paralyzing arthritis History of Present Illness HPI narrative: 87-year-old female with diabetes, dyslipidemia, hypertension, CKD, coronary artery disease /CHF status post pacemaker, paroxysmal atrial tachycardia / a flutter on Eliquis, nonspecific sigmoid colitis with rectal bleeding on mesalamine. She has numerous drug allergies including to most/all pain medications including codeine, hydrocodone, oxycodone, diclofenac, tramadol. She has had a positive ARAMIS screen recently (08/17/2022). She was seen here 08/27/2022, 4 days ago, and was noted to have severe bilateral hip and lower back? pain. She had a UTI, and was treated with macrobid. Her urine culture revealed >100K E coli, sensitive to nitrofurantoin (which she is on) and sensitive to Rocephin. She also had imaging of the lumbar spine and pelvis (see results below). This revealed severe osteoarthritis and severe spondylosis with severe spinal stenosis. She was discharged only on antibiotics. She did not receive pain medications. She lives at home with her , who is having a difficult time caring for her as she is unable to ambulate without significant assistance.? She now returns due to debilitating bilateral hip pain. She is unable to ambulate without significant assistance. Her assists her with putting her shoes and socks and clothes. They live at home. He is not sure if he can take care of her anymore. No falls or other changes since 4 days ago. No fevers. [facility] Past Medical History Medical History Abdominal pain Cardiomegaly Chemical conjunctivitis of both eyes Chronic anemia Chronic anticoagulation 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trial flutter. CKD (chronic kidney disease) stage 3, GFR 30-59 ml/min Closed head injury Congestive heart failure Contusion of right shoulder Coronary artery disease Diabetes type 2, controlled Dysphagia Elevated antinuclear antibody (ARAMIS) level Elevated liver enzymes Fall (~07/22/19) History of colon polyps History of esophageal dilatation History of pacemaker History of TIA (transient ischemic attack) and stroke Hyperlipidemia associated with type 2 diabetes mellitus Hypertension Hypertension associated with stage 3 chronic kidney disease due to type 2 diabetes mellitus Hyponatremia Hypothyroidism Paroxysmal atrial flutter Peripheral sensory neuropathy due to type 2 diabetes mellitus Rectal bleeding Schatzki's ring of distal esophagus Trigger finger, right middle finger Surgical History Surgical History History of appendectomy History of arthroplasty of right knee History of cholecystectomy History of colonoscopy with polypectomy Last colonoscopy in 01/2020 with descending colon polyp biopsied and showing ulcerated tubulovillous adenoma with high-grade dysplasia. History of mitral valve repair 4 vessel CABG and Mitral Valve Repair at [facility] in 1995. History of phacoemulsification of cataract of both eyes with intraocular lens implantation History of total abdominal hysterectomy and bilateral salpingo-oophorectomy S/P CABG (coronary artery bypass graft) 4 vessel CABG and Mitral Valve Repair at [facility] in 1995. Family History Family History Mother Carcinoma of colon Hypertension Father Family history of coronary artery disease Heart disease Hypertension Father Family history of coronary artery disease Social History Social History (R
[2022-09-01 12:01] LABS: Glucose Point of Care 371 mg/dl (65-105)
--- NOTE | 2022-09-01 13:40 | PC.NURSE ---
Patient discharging home. IV site removed, tip intact. Dressing applied to site. This nurse assisted patient to dress in clothing from home. All discharge instructions and education reviewed with patient. Patient states understanding. This nurse accompanied patient to front door via wheelchair. Patient left via private vehicle with son and spouse.
--- NOTE | 2022-09-07 09:43 | PC.NURSE ---
Unable to contact for discharge call back.
== END 2022-09-01 13:50 | disposition home or self-care (01) ==
LOC: CHSED 23:26 → CHS2ND 09-01 08:06
PROVIDERS: Nurse Practitioner Family; Admitting Provider Internal Medicine; Emergency Provider Emergency Medicine; PCP Internal Medicine; Visit Provider Internal Medicine
DX: N17.9 Acute kidney failure, unspecified (principal); N39.0 Urinary tract infection, site not specified; M48.00 Spinal stenosis, site unspecified; M47.816 Spondylosis without myelopathy or radiculopathy, lumbar region; M25.552 Pain in left hip; M25.551 Pain in right hip; I47.1 Supraventricular tachycardia; I25.10 Atherosclerotic heart disease of native coronary artery without angina pectoris; I13.0 Hypertensive heart and chronic kidney disease with heart failure and stage 1 through stage 4 chronic kidney disease, or unspecified chronic kidney disease; I50.9 Heart failure, unspecified; N18.30 Chronic kidney disease, stage 3 unspecified; E11.22 Type 2 diabetes mellitus with diabetic chronic kidney disease; E78.5 Hyperlipidemia, unspecified; E11.42 Type 2 diabetes mellitus with diabetic polyneuropathy; E03.9 Hypothyroidism, unspecified; K22.2 Esophageal obstruction; Z20.822 Contact with and (suspected) exposure to COVID-19; Z79.4 Long term (current) use of insulin; Z79.01 Long term (current) use of anticoagulants; Z95.1 Presence of aortocoronary bypass graft; Z95.0 Presence of cardiac pacemaker; Z86.010 Personal history of colon polyps; Z86.73 Personal history of transient ischemic attack (TIA), and cerebral infarction without residual deficits
CPT/HCPCS: 36415; 80048; 80053; 81001; 82948; 85025; 87077; 87086; 87088; 87186; 96365; 96375; 97161; 99285; A9270; G0378; J0696; J1200; J1815; J2270; J2360; J2930; J7030; U0003; U0005

== ENCOUNTER 2022-09-10 17:02 | Emergency (ER) | payer MEDICARE, SELFPAY ==
[2022-09-10] VITALS (10 sets, daily range): BP systolic 115–163; BP diastolic 45–84; PULSE 51–86; RESP 11–22; TEMP 36.6; O2SAT 93–100
[2022-09-10 17:32] LABS: Basophils Percent Auto 0.1 % (0.2-1.2); Hematocrit 36.3 % (37.0-47.0); Hemoglobin 11.5 g/dL (12.0-15.0); Immature Granulocyte Absolute 0.03 K/mm3 (0.00-0.031); Immature Granulocyte Percent A 0.4 % (0-0.5); Lymphocytes Absolute Auto 0.77 K/mm3 (0.9-3.2); Lymphocytes Percent Auto 11.3 % (18.3-44.2); Mean Corpuscular HGB Conc 31.7 g/dl (32-36); Mean Corpuscular Hemoglobin 31.1 pg (26-34); Mean Corpuscular Volume 98.1 fl (80-100); Monocytes Absolute Auto 0.7 K/mm3 (0.1-0.6); Monocytes Percent Auto 9.7 % (2.6-8.5); Neutrophils Absolute Auto 5.3 K/mm3 (1.3-6.7); Neutrophils Percent Auto 78.5 % (45.5-73.1); Platelet Count Result 219 k/mm3 (150-375); Red Cell Distribution Width 13.7 % (11.5-14.5); White Blood Count 6.8 K/mm3 (4.5-10.0)
[2022-09-10 17:39] LABS: Add Urine Microscopic? YES; Appearance Urine Clear (Clear); Bilirubin Urine Negative (Negative); Blood Urine Negative (Negative); Color Urine Yellow (Yellow); Glucose Urine UA Negative (Negative); Ketones Urine Negative (Negative); Leukocyte Esterase Ur Negative LEU/UL (Negative); Nitrate Urine Negative (Negative); Protein Urine 1+ mg/dL (Negative); Urobilinogen Urine 0.2 mg/dL (<2.0)
--- NOTE | 2022-09-10 17:44 | ED.GENADULT ---
HPI - General Adult General Chief complaint: Urogenital-Female Stated complaint: Loss of Balance, No urine Output Time Seen by Provider: 09/10/22 17:13 History of Present Illness HPI narrative: Is an 87-year-old female presenting ED with chief complaint of being unable to urinate. Says she has not been able urinate for 3-4 days. She is now experiencing abdominal pain and fullness. She was treated for UTI proximally 1 week ago and completed her course of antibiotics. Patient denies fever, chills, chest pain, difficulty breathing, nausea vomiting or diarrhea. She denies trauma or back pain. She has never had urinary retention in the past. Related Data Home Medications Medication Instructions Recorded Confirmed levothyroxine 112 mcg capsule 112 mcg PO QAM 10/21/20 08/31/22 potassium chloride 10 mEq 10 meq PO DAILY 04/15/21 08/31/22 tablet,extended release aspirin 81 mg tablet,delayed 81 mg PO DAILY 05/10/21 08/31/22 release (Adult Low Dose Aspirin) multivitamin 1 tablet PO DAILY 07/07/21 08/31/22 ferrous sulfate 325 mg (65 mg 325 mg PO QAM 11/02/21 08/31/22 iron) tablet (FeroSul) insulin NPH-regular 70-30 U-100 10 unit subcut BID 11/02/21 08/31/22 insulin 100 unit/mL subcutaneous pen (Humulin 70/30 U-100 KwikPen) cholecalciferol (vitamin D3) 100 150 mcg PO WEEKLY 06/16/22 08/31/22 mcg (4,000 unit) capsule mesalamine 1.2 gram tablet,delayed 4.8 g PO QAM 06/16/22 08/31/22 release (Lialda) pravastatin 10 mg tablet 10 mg PO DAILY 06/30/22 08/31/22 Allergies Allergy/AdvReac Type Severity Reaction Status Date / Time adhesive tape Allergy Severe BLISTERS Verified 09/10/22 17:30 amiodarone Allergy Severe N/V, Verified 09/10/22 17:30 HEADACHE, HOSPITALIZED atorvastatin Allergy Severe SWELLING Verified 09/10/22 17:30 clindamycin Allergy Severe TACHYCARDIA Verified 09/10/22 17:30 gabapentin Allergy Severe CHF Verified 09/10/22 17:30 gemfibrozil Allergy Severe ELEVATED Verified 09/10/22 17:30 CHOLESTEROL nifedipine Allergy Severe SWELLING Verified 09/10/22 17:30 norfloxacin Allergy Severe SWELLING Verified 09/10/22 17:30 adhesive Allergy Intermediate Unknown Verified 09/10/22 17:30 chlorpheniramine [Ornade] Allergy Intermediate Unknown Verified 09/10/22 17:30 doxycycline Allergy Intermediate Unknown Verified 09/10/22 17:30 erythromycin base Allergy Intermediate Unknown Verified 09/10/22 17:30 flurbiprofen [Ansaid] Allergy Intermediate Unknown Verified 09/10/22 17:30 tetracycline Allergy Intermediate Unconscious Verified 09/10/22 17:30 tramadol [Ultram] Allergy Intermediate Unknown Verified 09/10/22 17:30 cephalexin Allergy Mild Rash Verified 09/10/22 17:30 ciprofloxacin Allergy Unknown Unknown Verified 09/10/22 17:30 diclofenac Allergy Unknown Unknown Verified 09/10/22 17:30 hydroxyzine Allergy Unknown Unknown Verified 09/10/22 17:30 Penicillins Allergy Unknown Unknown Verified 09/10/22 17:30 propoxyphene Allergy Unknown Unknown Verified 09/10/22 17:30 terfenadine Allergy Unknown Unknown Verified 09/10/22 17:30 butorphanol AdvReac Severe RESTLESSNES Verified 09/10/22 17:30 S cerivastatin AdvReac Severe ABDOMINAL Verified 09/10/22 17:30 PAIN, H/A dexamethasone AdvReac Severe IRRITATED Verified 09/10/22 17:30 EYES duloxetine AdvReac Severe H/A Verified 09/10/22 17:30 enalaprilat AdvReac Severe COUGH Verified 09/10/22 17:30 guaifenesin AdvReac Severe NERVOUSNESS Verified 09/10/22 17:30 hydrocodone AdvReac Severe N/V Verified 09/10/22 17:30 isosorbide AdvReac Severe H/A Verified 09/10/22 17:30 levofloxacin AdvReac Severe VOMITING Verified 09/10/22 17:30 meperidine AdvReac Severe H/A Verified 09/10/22 17:30 nitroglycerin AdvReac Severe VOMITING Verified 09/10/22 17:30 oxycodone AdvReac Severe VOMITING Verified 09/10/22 17:30 phenylephrine AdvReac Severe NERVOUSNESS Verified 09/10/22 17:30 phenylpropanolamine AdvReac Severe NERVOUSNESS Verified 09/10/22 17:30 prednisone AdvReac Severe H/A Verified 09/10/22
[2022-09-10 17:45] LABS: Anion Gap 9 mmol/L (8-16); Blood Urea Nitrogen 16 mg/dL (7-17); Calcium 8.3 mg/dL (8.4-10.2); Carbon Dioxide 25 mmol/L (22-30); Chloride 104 mmol/L (98-107); Estimated CRCL calculation 36 ml/min; Estimated Glomerular Filt Rate > 60; Glucose 113 mg/dL (65-110); Sodium 138 mmol/L (137-145)
[2022-09-10 17:46] LABS: Mucus Urine Rare /lpf; RBC Urine 0-2 /hpf (0-2); WBC Urine 0-3 /hpf
== END 2022-09-10 18:55 | disposition home or self-care (01) ==
PROVIDERS: Emergency Provider Emergency Medicine; PCP Internal Medicine
DX: R33.9 Retention of urine, unspecified (principal); D64.9 Anemia, unspecified; I13.0 Hypertensive heart and chronic kidney disease with heart failure and stage 1 through stage 4 chronic kidney disease, or unspecified chronic kidney disease; E11.22 Type 2 diabetes mellitus with diabetic chronic kidney disease; N18.30 Chronic kidney disease, stage 3 unspecified; I50.9 Heart failure, unspecified; Z95.0 Presence of cardiac pacemaker; E03.9 Hypothyroidism, unspecified; I48.92 Unspecified atrial flutter; Z79.4 Long term (current) use of insulin
CPT/HCPCS: 36415; 51702; 80048; 81001; 85025; 99283

== ENCOUNTER 2022-09-14 14:47 | Inpatient (IN) | payer MEDICARE, SELFPAY ==
[2022-09-14] VITALS (22 sets, daily range): BP systolic 128–170; BP diastolic 58–70; PULSE 71–80; RESP 16–27; TEMP 36.3–36.4; O2SAT 91–97; BMI 17.9
--- NOTE | ~2022-09-14 | US_ITS ---
US right upper quadrant INDICATION: Elevated liver function tests. PROCEDURE: Realtime right upper abdominal ultrasound. COMPARISON: CT dated 07/23/2022 FINDINGS: The pancreas is normal without focal mass or pancreatic ductal dilation. Liver echotexture is normal without focal mass or intrahepatic biliary dilatation. There is normal directional flow i n the portal vein. Gallbladder is surgically absent. Common bile duct measures 6.5 mm. IMPRESSION: 1: Normal limited abdominal ultrasound. Reviewed, dictated and finalized at location A. PATIAL SYSTEMS INTEGRATOR
--- NOTE | ~2022-09-14 | CT_ITS ---
EXAMINATION: CT lumbar spine w con DATE: 09/26/2022 10:16 INDICATION: Cauda equina TECHNIQUE: Computed tomography (CT) of the lumbar spine was performed with intrathecal contrast but w ithout intravenous contrast. Details of the intrathecal injection have been dictated separately. Daryl tional sagittal and coronal reconstructed images were obtained. The dose-length product was 652.00 mG y-cm. COMPARISON: CT dated 09/23/2022 FINDINGS: 7 degree lumbar dextrocurvature. 2 mm anterolisthesis L4 on L5. Shallow Schmorl's node/focal endplate compression fracture at the right side of the superior endplate of the L4 vertebral body. Moderate t o severe disc height loss at L1-L2 and L5-S1. Mild to moderate left-sided predominant disc height los s at L4-L5. Mild disc height loss at L2-L3 and L3-L4. Moderate to severe bilateral sacroiliac osteoar thritis. The following disc levels are specifically discussed: T11-T12: The disc does not extend beyond the endplate margin. There is mild bilateral facet joint ost eoarthritis. There is mild right neural foraminal stenosis. There is no central canal stenosis. T12-L1: Negligible central disc protrusion with associated tiny endplate osteophyte. There is mild ri ght and moderate left facet joint osteoarthritis. There is minimal right and no left neural foraminal stenosis. There is no central canal stenosis. L1-L2: Posterior disc osteophyte complex. There is moderate bilateral facet joint osteoarthritis. The re is moderate left and moderate to severe right neural foraminal stenosis. There is mild central can al stenosis including mild narrowing of the left and right lateral recesses. L2-L3: Moderate disc bulge with some peripheral calcification. There is mild to moderate bilateral fa cet joint osteoarthritis. There is mild right and moderate left neural foraminal stenosis. There is m ild central canal stenosis including mild narrowing of the left and right lateral recesses. L3-L4: Diffuse disc bulge with some peripheral calcification. There is moderate left and mild to mode rate right facet joint osteoarthritis. There is moderate bilateral neural foraminal stenosis. There i s mild to moderate central canal stenosis with mild narrowing of the right and moderate of the left l ateral recesses. L4-L5: Moderate disc bulge with some peripheral calcification. There is severe bilateral facet joint osteoarthritis. There is moderate right and moderate to severe left neural foraminal stenosis. There is moderate central canal stenosis with moderate narrowing of the right lateral recess and severe arnaldo rowing of the left lateral recess. L5-S1: Mild diffuse disc bulge with some disc calcification. There is moderate left and moderate to s evere right facet joint osteoarthritis. There is moderate left and moderate to severe right neural fo raminal stenosis. There is mild central canal stenosis with moderate narrowing of the left and right lateral recesses. IMPRESSION: 1. Severe lumbar spondylosis with moderate central canal stenosis at L4-L5, the degree of which was o verestimated on the prior non myelographic imaging. There is moderate and moderate to severe neural f oraminal stenosis at multiple levels on both the left and right sides of the lumbar spine. Reviewed, dictated and finalized at location A. RVISOR INSTRUMENT MECHANICS IMPRESSION: 1. Severe lumbar spondylosis with moderate central canal stenosis at L4-L5, the degree of which was overestimated on the prior non myelographic imaging. There is moderate and moderate to severe neural foraminal stenosis at multiple level s on both the left and right sides of the lumbar spine.
--- NOTE | ~2022-09-14 | XR_ITS ---
EXAMINATION: XR chest 2V DATE: 09/14/2022 15:22 INDICATION: Chest pain. TECHNIQUE: Frontal and lateral views of the chest were obtained. COMPARISON: Chest single view 06/16/2022, CT abdomen and pelvis 07/23/2022 FINDINGS: There is no pneumonia, pleural effusion, or pneumothorax. Cardiomegaly is noted. Median promise rnotomy wires and mediastinal surgical clips are seen, likely from prior coronary artery bypass graft ing. There is a left chest wall pacer with leads in the right atrium and right ventricle. Surgical cl ips in the right upper quadrant are likely from cholecystectomy. IMPRESSION: 1. Cardiomegaly. Reviewed, dictated and finalized at location A. RNMENT MINISTER IMPRESSION: 1. Cardiomegaly.
--- NOTE | ~2022-09-14 | XR_ITS ---
EXAMINATION: XR myelogram spine lumbosacral DATE: 09/26/2022 10:30 INDICATION: Cauda equina TECHNIQUE: Informed consent was obtained from the patient. Risks and benefits including bleeding, i nfection, spinal headache and nerve root injury were discussed with the patient. The patient agreed to proceed. Time out procedure was performed. Content Director fluoroscopic image was obtained. An entry site was chosen at the L2-L3 level. A right paracentral approach was used. Standard sterile prep was do ne with Betadine. Entry site was infiltrated with 5 cc 1% lidocaine. A 3.5 22G spinal needle was t hen inserted into the spinal canal. 15 milliliters Omnipaque 180 were then injected into the thecal sac under intermittent fluoroscopic observation. A left lateral decubitus and EL oblique fluoroscopi c images were obtained. The patient was experiencing pain and significant difficulty attempting to tr ansition to an LEAL position and it was elected to dispense with the LEAL oblique images and procedure to CT myelography. The patient was then transferred to CT scan for spiral CT of the lumbar spine. The re were no immediate complications. A total of 18 fluoroscopic images and one crosstable lateral radi ograph were obtained. The amount of fluoroscopy time used during this procedure was 2.8 minutes. Tota l DAP was 4.063 Gycm^2 FINDINGS/IMPRESSION: Successful intrathecal administration of contrast for fluoroscopic and subsequent CT myelogram which demonstrated severe cervical spondylosis with moderate central canal stenosis at the level of L4-L5. See separate CT report for further detail and level by level analysis. Reviewed, dictated and finalized at location A. ATION OFFICER
--- NOTE | ~2022-09-14 | CT_ITS ---
EXAMINATION: CT lumbar spine wo con DATE: 09/23/2022 09:52 INDICATION: Cauda equina TECHNIQUE: Computed tomography (CT) of the lumbar spine was performed without intravenous contrast. A utomated exposure control and iterative reconstruction technique were employed. The dose-length produ ct was 626.33 mGy-cm. COMPARISON: 08/27/22 FINDINGS: 7 degree lumbar dextrocurvature. One-2 mm anterolisthesis L3 on L4. Vertebral body heights are normal. Moderate to severe disc height loss at L1-L2 and L5-S1, mild disc height loss at L2-L3 th rough L4-L5. Moderate to severe bilateral sacroiliac osteoarthritis. There is calcified atheroscleros is of the aorta and many of the other arteries. Paravertebral soft tissues are unremarkable. The foll owing disc levels are specifically discussed: T12-L1: Disc is mildly bulging. There is mild right and moderate left facet joint osteoarthritis. The re is no neural foraminal stenosis. There is no central canal stenosis. L1-L2: Posterior disc osteophyte complex. There is moderate bilateral facet joint osteoarthritis. The re is moderate left and moderate to severe right neural foraminal stenosis. There is mild to moderate central canal stenosis. L2-L3: Posterior disc osteophyte complex. There is mild to moderate bilateral facet joint osteoarthri tis. There is mild left and mild right neural foraminal stenosis. There is mild to moderate central c anal stenosis. L3-L4: Severe disc osteophyte complex. There is moderate left and mild to moderate right facet joint osteoarthritis. There is moderate bilateral neural foraminal stenosis. There is moderate central althea l stenosis. L4-L5: Disc is bulging. There is severe bilateral facet joint osteoarthritis. There is moderate right and moderate to severe left neural foraminal stenosis. There is severe central canal stenosis. L5-S1: Disc is mildly bulging. There is severe bilateral facet joint osteoarthritis. There is moderat e left and moderate to severe right neural foraminal stenosis. There is mild central canal stenosis. IMPRESSION: 1. No significant change in severe lumbar spondylosis with severe central canal stenosis at L4-L5. Reviewed, dictated and finalized at location A. EED OIL TEMPERER
--- NOTE | ~2022-09-14 | XR_ITS ---
XR chest 1V portable 09/17/2022 05:58 Indication: Influenza Procedure: AP portable chest Comparison: Comparison to multiple prior studies sequentially, with oldest reviewed study dated 05/23. Findings: Status post median sternotomy for CABG. Cardiomegaly. Pacemaker leads are in the right atri um and right ventricle respectively. Mild diffuse interstitial infiltrates with peribronchial thicken ing. No significant effusion or pneumothorax. No acute osseous abnormality. Impression: 1: Diffuse bilateral interstitial infiltrates with peribronchial thickening. Differential diagnosis i ncludes edema and pneumonia. Reviewed, dictated and finalized at location A. E MAKER ZINC Impression: 1: Diffuse bilateral interstitial infiltrates with peribronchial thickening. Di fferential diagnosis includes edema and pneumonia.
--- NOTE | 2022-09-14 14:48 | ECG_ITS ---
Measurements Intervals Mountain Rate: 85 P: 73 AK: 178 QRS: -83 QRSD: 202 T: 96 QT: 456 QTc: 543 Interpretive Statements ATRIAL SENSE- ELECTRONIC VENTRICULAR PACEMAKER BASELINE ARTIFACT- II, III, AVF, V4 NO FURTHER INTERPRETATION IS POSSIBLE ATYPICAL ECG COMPARED TO ECG 07/23/2022 15:18:19 NO SIGNIFICANT CHANGES Electronically Signed On 09-14-2022 15:17:23 ORACLE OBIEE DEVELOPER by Jim Herr D.O.
--- NOTE | 2022-09-14 15:05 | ED.CHESTPAIN ---
HPI - Chest Pain General Chief Complaint: Chest Pain Stated Complaint: CHEST PAIN Source: patient and family Mode of arrival: other (car, non ambulatory) Limitations: no limitations History of Present Illness HPI narrative: The patient is a 87-year-old female with with a history of diabetes, hyperlipidemia, chronic kidney disease, hypertension, coronary artery disease, congestive heart failure, pacemaker placement, paroxysmal atrial tachycardia on chronic anticoagulation with Eliquis, presenting to the emergency room for evaluation of weakness. Patient was admitted to this hospital last month and discharged 09/10. She was recommended to be placed in a senior living which is what the patient and the apparently wanted, however the patient's son wanted her to be at home and thus she did go home per my review of the hospitalist notes. Patient reports chest pain today that was mild in nature over the front of her chest that is associated with coughing. She denies current chest pain. She denies fever, chills. She denies hemoptysis. She denies abdominal pain. She has a chronic indwelling Shore catheter after visit to our ER for urinary retention. While she was in the hospital she was diagnosed with a E. coli sensitive urinary tract infection and discharged home on nitrofurantoin. Patient continues to state that her does not care for her and leaves her days without food or checking on her. When questioned regarding this, patient has been is noted to be using a walker to ambulate and he states that he has significant difficulty helping her. Related Data Home Medications Medication Instructions Recorded Confirmed levothyroxine 112 mcg capsule 112 mcg PO QAM 10/21/20 08/31/22 potassium chloride 10 mEq 10 meq PO DAILY 04/15/21 08/31/22 tablet,extended release aspirin 81 mg tablet,delayed 81 mg PO DAILY 05/10/21 08/31/22 release (Adult Low Dose Aspirin) multivitamin 1 tablet PO DAILY 07/07/21 08/31/22 ferrous sulfate 325 mg (65 mg 325 mg PO QAM 11/02/21 08/31/22 iron) tablet (FeroSul) insulin NPH-regular 70-30 U-100 10 unit subcut BID 11/02/21 08/31/22 insulin 100 unit/mL subcutaneous pen (Humulin 70/30 U-100 KwikPen) cholecalciferol (vitamin D3) 100 150 mcg PO WEEKLY 06/16/22 08/31/22 mcg (4,000 unit) capsule mesalamine 1.2 gram tablet,delayed 4.8 g PO QAM 06/16/22 08/31/22 release (Lialda) pravastatin 10 mg tablet 10 mg PO DAILY 06/30/22 08/31/22 Allergies Allergy/AdvReac Type Severity Reaction Status Date / Time adhesive tape Allergy Severe BLISTERS Verified 09/10/22 17:30 amiodarone Allergy Severe N/V, Verified 09/10/22 17:30 HEADACHE, HOSPITALIZED atorvastatin Allergy Severe SWELLING Verified 09/10/22 17:30 clindamycin Allergy Severe TACHYCARDIA Verified 09/10/22 17:30 gabapentin Allergy Severe CHF Verified 09/10/22 17:30 gemfibrozil Allergy Severe ELEVATED Verified 09/10/22 17:30 CHOLESTEROL nifedipine Allergy Severe SWELLING Verified 09/10/22 17:30 norfloxacin Allergy Severe SWELLING Verified 09/10/22 17:30 adhesive Allergy Intermediate Unknown Verified 09/10/22 17:30 chlorpheniramine [Ornade] Allergy Intermediate Unknown Verified 09/10/22 17:30 doxycycline Allergy Intermediate Unknown Verified 09/10/22 17:30 erythromycin base Allergy Intermediate Unknown Verified 09/10/22 17:30 flurbiprofen [Ansaid] Allergy Intermediate Unknown Verified 09/10/22 17:30 tetracycline Allergy Intermediate Unconscious Verified 09/10/22 17:30 tramadol [Ultram] Allergy Intermediate Unknown Verified 09/10/22 17:30 cephalexin Allergy Mild Rash Verified 09/10/22 17:30 ciprofloxacin Allergy Unknown Unknown Verified 09/10/22 17:30 diclofenac Allergy Unknown Unknown Verified 09/10/22 17:30 hydroxyzine Allergy Unknown Unknown Verified 09/10/22 17:30 Penicillins Allergy Unknown Unknown Verified 09/10/22 17:30 propoxyphene Allergy Unknown Unknown Verified 09/10/22 17:30 terfenadine Allergy Unknown Unknown Verified
--- NOTE | 2022-09-14 15:26 | PC.NURSE ---
Patient denies chest pain at this time. Patient has a cough that she states she has had for awhile .
[2022-09-14 15:42] LABS: Basophils Percent Auto 0.1 % (0.2-1.2); Hematocrit 43.8 % (37.0-47.0); Hemoglobin 14.3 g/dL (12.0-15.0); Immature Granulocyte Absolute 0.05 K/mm3 (0.00-0.031); Immature Granulocyte Percent A 0.4 % (0-0.5); Lymphocytes Absolute Auto 0.58 K/mm3 (0.9-3.2); Lymphocytes Percent Auto 4.2 % (18.3-44.2); Mean Corpuscular HGB Conc 32.6 g/dl (32-36); Mean Corpuscular Hemoglobin 30.4 pg (26-34); Mean Corpuscular Volume 93.2 fl (80-100); Monocytes Absolute Auto 0.5 K/mm3 (0.1-0.6); Monocytes Percent Auto 3.6 % (2.6-8.5); Neutrophils Absolute Auto 12.7 K/mm3 (1.3-6.7); Neutrophils Percent Auto 91.7 % (45.5-73.1); Platelet Count Result 250 k/mm3 (150-375); Red Cell Distribution Width 13.5 % (11.5-14.5); White Blood Count 13.8 K/mm3 (4.5-10.0)
[2022-09-14 15:55] LABS: INR 1.2; Prothrombin Time 14.7 Seconds (11.1-14.7)
[2022-09-14 15:56] LABS: Partial Thromboplastin Time 28.9 SECONDS (22.3-36.8)
[2022-09-14 16:02] LABS: Ovalocytes 1+ (NORMAL); Platelet Estimate Adequate (Adequate); Schistocytes None Seen (NORMAL)
[2022-09-14 16:14] LABS: Alanine Aminotransferase 68 U/L (6-35); Albumin Level 4.2 g/dL (3.5-5.1); Alkaline Phosphatase 108 U/L (38-126); Anion Gap 12 mmol/L (8-16); Aspartate Amino Transferase 55 U/L (14-36); Bilirubin,Total 0.7 mg/dL (0.2-1.3); Blood Urea Nitrogen 11 mg/dL (7-17); Calcium 8.6 mg/dL (8.4-10.2); Carbon Dioxide 26 mmol/L (22-30); Chloride 98 mmol/L (98-107); Estimated CRCL calculation 41 ml/min; Estimated Glomerular Filt Rate > 60; Glucose 218 mg/dL (65-110); Lipase 12 U/L (23-300); Potassium 2.8 mmol/L (3.4-5.0); Sodium 136 mmol/L (137-145)
[2022-09-14 16:20] LABS: Troponin I 0.052 ng/mL (0.000-0.034)
[2022-09-14] MEDS: POTASSIUM CHLORIDE 20 MEQ PACKET (FOR LIQUID) 40 MEQ PO (16:50)
[2022-09-14 16:59] LABS: Magnesium 1.4 mg/dL (1.6-2.3); Phosphorus 2.4 mg/dL (2.5-4.5)
[2022-09-14 17:11] LABS: Add Urine Microscopic? YES; Appearance Urine Slightly Cloudy (Clear); Bilirubin Urine Negative (Negative); Blood Urine Negative (Negative); Color Urine Yellow (Yellow); Glucose Urine UA Trace mg/dL (Negative); Ketones Urine 1+ mg/dL (Negative); Leukocyte Esterase Ur Negative LEU/UL (Negative); Nitrate Urine Positive (Negative); Protein Urine 2+ mg/dL (Negative); Urobilinogen Urine 0.2 mg/dL (<2.0)
[2022-09-14 17:14] LABS: Bacteria Urine Trace /hpf; Mucus Urine Rare /lpf; Squamous Epithelial Cell Urine Rare /hpf (Few); WBC Urine 16-20 /hpf
[2022-09-14 17:56] LABS: Influenza A QL RT-PCR Positive (Negative); Influenza B QL RT-PCR Negative (Negative); SARS-CoV-2 RNA PCR Negative
--- NOTE | 2022-09-14 18:42 | PC.NURSE ---
Patient began having uncontrolled diarrhea. This RN and a jazmin cleaned patient up and collected a sample to send to the lab. Dr Sosa's gave verbal order for management system to be placed and to send stool down to the lab for testing. This RN was concerned for c-diff. Patient gave verbal consent and is tolerating fecal management system well at this time.
[2022-09-14 18:46] LABS: Troponin I 0.056 ng/mL (0.000-0.034)
[2022-09-14] MEDS: MAGNESIUM SULF 2 GM/WATER 50ML 2 GM/50 ML BAG IVPB (18:47)
[2022-09-14] MEDS: LACTATED RINGERS 1,000 ML 125 ML IV CONT (20:11)
[2022-09-14] MEDS: POTASSIUM CHLORIDE INJ 40 MEQ in SODIUM CHLORIDE 0.9% IV 500 ML 130 MEQ IVPB (20:11)
--- NOTE | 2022-09-14 20:35 | PM.IMHP ---
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 Patient presents for evaluation to the emergency room due to generalized weakness. Patient was recently discharged from [facility] to home. Denies any fevers, rigors, chills, nausea, vomiting, abdominal pain, diarrhea, having chest pain retrosternal nonradiating. Preliminary workup was significant for slightly elevated troponins. An EKG was reported as: ATRIAL SENSE- ELECTRONIC VENTRICULAR PACEMAKER BASELINE ARTIFACT- II, III, AVF, V4 NO FURTHER INTERPRETATION IS POSSIBLE ATYPICAL ECG COMPARED TO ECG 07/23/2022 15:18:19 NO SIGNIFICANT CHANGES Chest x-ray was reported as: FINDINGS: There is no pneumonia, pleural effusion, or pneumothorax. Cardiomegaly is noted. Median sternotomy wires and mediastinal surgical clips are seen, likely from prior coronary artery bypass grafting. There is a left chest wall pacer with leads in the right atrium and right ventricle. Surgical clips in the right upper quadrant are likely from cholecystectomy. IMPRESSION: 1. Cardiomegaly. Review of Systems Review of Systems: Feeling weak, chest pain retrosternal. Constitutional: Constitutional: Denies chills, Denies fever(s), Denies malaise and Reports weakness Eyes: Eyes: Denies change in vision ENT: Denies dysphagia, Denies vertigo, Denies dizziness and Denies odynophagia Cardiovascular: Cardiovascular: Reports chest pain, Denies leg edema, Denies lightheadedness, Denies palpitations and Denies dyspnea Respiratory: Respiratory: Denies chest congestion, Denies cough, Denies excessive phlegm production, Denies pain on inspiration, Denies dyspnea and Denies dyspnea on exertion Gastrointestinal: Gastrointestinal: Denies abdominal pain, Denies dyspepsia, Denies heartburn, Denies diarrhea, Denies nausea and Denies vomiting Genitourinary: Genitourinary: Reports no additional female genitourinary complaints, Reports as per HPI and Denies dysuria Musculoskeletal: Musculoskeletal: Denies back pain, Denies joint swelling and Reports muscle weakness Integumentary/Breasts: Skin/Breast: Denies rash Neurologic: Denies vertigo, Denies dizziness, Denies focal weakness and Denies Sensory deficit (Neuro) Psychiatric: Psychiatric: Reports no additional psychiatric complaints and Reports as per HPI Endocrine: Endocrine: Denies cold intolerance, Denies flushing, Denies heat intolerance, Denies polyphagia, Denies polydipsia and Denies palpitations Hematologic/Lymphatic: Hematologic/Lymphatic: Reports no additional hematologic/lymphatic complaints and Reports as per HPI Allergic/Immunologic: Allergic/Immunologic: Reports no additional allergic/immunologic complaints and Reports as per HPI PMFSH Past Medical History Medical History Abdominal pain Cardiomegaly Chemical conjunctivitis of both eyes Chronic anemia Chronic anticoagulation 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trial flutter. CKD (chronic kidney disease) stage 3, GFR 30-59 ml/min Closed head injury Congestive heart failure Contusion of right shoulder Coronary artery disease Diabetes type 2, controlled Dysphagia Elevated antinuclear antibody (ARAMIS) level Elevated liver enzymes Fall (~07/22/19) History of colon polyps History of esophageal dilatation History of pacemaker History of TIA (transient ischemic attack) and stroke Hyperlipidemia associated with type 2 diabetes mellitus Hypertension Hypertension associated with stage 3 chronic kidney disease due to type 2 diabetes mellitus Hyponatremia Hypothyroidism Paroxysmal atrial flutter Peripheral
[2022-09-14 21:31] LABS: Toxigenic C. Diff NEGATIVE (NEGATIVE)
[2022-09-14 22:28] LABS: Troponin I 0.057 ng/mL (0.000-0.034)
[2022-09-15] VITALS (20 sets, daily range): BP systolic 141–186; BP diastolic 59–76; PULSE 65–93; RESP 16–24; TEMP 35.9–36.8; O2SAT 94–99; BMI 18.3
--- NOTE | 2022-09-15 00:30 | ADMGEN ---
This patient, Dinorah Thorpe, was admitted to IMU Room 209-01. Patient/family oriented to hospital policies and general routines including ID bracelet, bed and alarms, visiting hours, pain management, procedures, bathroom and other care routines, personal items, smoking policy, room service/diet, and visiting hours. Information on how to activate the Rapid Response Team has been discussed. Patient/Family are encouraged to report perceived risks to care and to ask questions if they do not understand what they are told or what they should do.
[2022-09-15] MEDS: hydrALAZINE HCL 20 MG/ML VIAL 10 MG IV PUSH (04:57)
[2022-09-15] MEDS: OSELTAMIVIR PHOSPHATE 75 MG CAPSULE PO ×2 (10:26→21:14)
[2022-09-15] MEDS: LACTATED RINGERS 1,000 ML 125 ML IV CONT ×2 (12:56→22:58)
--- NOTE | 2022-09-15 13:09 | PM.CNCAR ---
Assessment and Plan Assessment and plan (1) Elevated troponin: Code(s): R77.8 - Other specified abnormalities of plasma proteins Status: Acute Assessment and Plan: Patient admitted with some atypical chest pain and has elevated troponins. history of CAD and CABG. Troponins have a Flat curve. EKG is noncontributory due to be pacing. No inducible ischemia by stress test last summer. suspect nonischemic myocardial injury due to influenza. No further cardiac evaluation needed. (2) Atypical chest pain: Code(s): R07.89 - Other chest pain Status: Acute Assessment and Plan: Atypical chest pain, reproducible, pleuritic. This appears to be noncardiac chest pain, due to her cough and influenza. (3) Hypokalemia: Code(s): E87.6 - Hypokalemia Status: Resolved Assessment and Plan: Hypokalemic and hypomagnesemic on admission, supplemented. Recheck potassium, phos and magnesium today BMP in the morning (4) Hypomagnesemia: Code(s): E83.42 - Hypomagnesemia Status: Acute Assessment and Plan: As above (5) Influenza A: Code(s): J10.1 - Influenza due to other identified influenza virus with other respiratory manifestations Status: Acute Assessment and Plan: admitted with weakness found to be positive for influenza A. Getting Oseltanivir (6) CAD (coronary artery disease), autologous vein bypass graft: Code(s): I25.810 - Atherosclerosis of coronary artery bypass graft(s) without angina pectoris Status: Acute Assessment and Plan: History of CAD, CABG and mitral valve repair. NSTEMI in April after a fall, appears to have been treated conservatively. These problems appear stable. Resume ASA, nitrates, statin H/O PAF; resume Eliquis History of pacemaker (7) Hypertension associated with stage 3 chronic kidney disease due to type 2 diabetes mellitus: Code(s): E11.22 - Type 2 diabetes mellitus with diabetic chronic kidney disease; I12.9 - Hypertensive chronic kidney disease with stage 1 through stage 4 chronic kidney disease, or unspecified chronic kidney disease; N18.3 - Chronic kidney disease, stage 3 (moderate) Status: Chronic Assessment and Plan: BP high. Resume losartan, carvedilol Would hold off on home furosemide and spironolactone as pt has poor po intake currently. Plan Recommended repletion of electrolytes, and cont current tx. No further cardiac evaluation needed. It appears this patient is regularly followed by Dr. Herr; please have patient follow-up with him. History of Present Illness History of Present Illness Consult date/time: 09/15/22 13:09 Reason For Visit: Atypical Chest Pain,Elevated Troponin,Hypokalemia, Narrative: Ck Thorpe is an 87 y.o.whom I was asked to see at the request of DR. Mcginnis for my advice and opinion regarding her chest pain and elevated troponins, in consultation. She has a history of diabetes, hyperlipidemia, hypertension, chronic kidney disease, CHF, pacemaker, paroxysmal atrial tachycardia, anticoagulated with Eliquis. History of CAD and CABG with mitral valve repair in 1995. No reversible ischemia by stress test in 02/2022. The patient was hospitalized briefly here in August for arthritis. Placement was recommended but declined by the family. This actually appears to be her 4th ER visit in less than 4 weeks. The patient came to the emergency room for generalized weakness. She was also complaining of chest pain, for little while. She can not tell me much about it except she had pain in her chest yesterday. It does appear worse with cough and breathing. She is complaining of shortness of breath and congestion. Troponins were: 0.052, 0.056 and 0.057. Her potassium and magnesium were low and she was supplemented. Influenza screen +. Review of Systems Constitutional: Constitutional: Reports fatigue
[2022-09-15 14:57] LABS: Magnesium 1.8 mg/dL (1.6-2.3); Phosphorus 1.6 mg/dL (2.5-4.5); Potassium 3.2 mmol/L (3.4-5.0)
--- NOTE | 2022-09-15 17:55 | PM.IMPN ---
Progress Note: A&P Assessment and Plan (1) Atypical chest pain: Code(s): R07.89 - Other chest pain Status: Acute Assessment and Plan: Elevated troponin to 0.057 but flat. EKG shows paced rhythm. Chest pain is atypical and felt related to coughing. Elevated trop related to influenza. Cardiology consulted and apprciate their inpuit. Continue to monitor (2) Elevated troponin: Code(s): R77.8 - Other specified abnormalities of plasma proteins Status: Acute Assessment and Plan: As above. (3) Acute hypokalemia: Code(s): E87.6 - Hypokalemia Status: Acute Assessment and Plan: Potassium 2.8 on admission. This was replaced. Mag also low and was replaced. Continue to monitor and replace as needed. (4) Acute UTI: Code(s): N39.0 - Urinary tract infection, site not specified Status: Acute Assessment and Plan: UA noted. Started on Rocephin for possible UTI. UCx pending. (5) Influenza A: Code(s): J10.1 - Influenza due to other identified influenza virus with other respiratory manifestations Status: Acute Assessment and Plan: Influenza A positive on admission. CXR showing cardiomegaly but no infiltrates. Start Tamiflu. Continue supportive care (6) Physical deconditioning: Code(s): R53.81 - Other malaise Status: Acute Assessment and Plan: Start PT/OT. Subjective Date/time seen: 09/15/22 17:55 Interval history: 87yo female with CKD, AFib, DM and HTN here for weakness and found to have influenza. Patient has a nonproductive cough. She still feels very weak. Poor appetite. She has not had her vaccines a season. She does complain of pleuritic chest pain. Exam Narrative: AF 96.7 143/65 80 16 99% ra Gen - NARD Chest - coarse inspiratory and expiratory rhonchi CV - RRR S1/S2. Telemetry showing mostly paced rhythm Abd - Soft, NT/ND, Positive BS - Shore secured. FCS in place Ext - No pedal edema Psych - Nml mood and affect Skin - Warm and dry Objective Data Vital Signs Vital Signs: Vital Signs - 24 hr 09/14/22 19:43 09/14/22 19:00 09/14/22 19:21 Temperature Pulse Rate 78 74 Respiratory Rate 26 H 24 H Blood Pressure 128/62 Pulse Oximetry 93 93 Oxygen Delivery 09/14/22 19:30 09/14/22 19:48 09/14/22 20:01 Temperature Pulse Rate 76 77 78 Respiratory Rate 24 H 26 H 26 H Blood Pressure 131/66 Pulse Oximetry 92 93 91 Oxygen Delivery 09/14/22 20:02 09/14/22 20:15 09/14/22 20:16 Temperature Pulse Rate 77 77 73 Respiratory Rate 25 H 25 H 25 H Blood Pressure 148/68 H Pulse Oximetry 93 94 93 Oxygen Delivery 09/14/22 20:30 09/14/22 20:31 09/14/22 20:32 Temperature Pulse Rate 76 77 77 Respiratory Rate 25 H 22 H 19 Blood Pressure 141/65 H Pulse Oximetry 92 93 93 Oxygen Delivery 09/14/22 20:45 09/14/22 20:46 09/14/22 21:09 Temperature Pulse Rate 73 71 80 Respiratory Rate 26 H 22 H 22 H Blood Pressure 157/59 H Pulse Oximetry 92 93 94 Oxygen Delivery 09/14/22 21:15 09/14/22 21:16 09/14/22 21:30 Temperature Pulse Rate 76 77 76 Respiratory Rate 20 26 H 25 H Blood Pressure 161/59 H Pulse Oximetry 93 93 94 Oxygen Delivery 09/14/22 21:31 09/14/22 22:52 09/14/22 23:31 Temperature 97.4 F L Pulse Rate 77 78 Respiratory Rate 27 H 24 H Blood Pressure 162/66 H 170/70 H Pulse Oximetry 94 95 Oxygen Delivery Room Air 09/14/22 22:25 09/15/22 00:00 09/15/22 02:00 Temperature Pulse Rate 77 75 74 Respiratory Rate Blood Pressure Pulse Oximetry Oxygen Delivery 09/15/22 04:00 09/15/22 04:00 09/15/22 04:00 Temperature 97.5 F L Pulse Rate 83 93 Respiratory Rate 24 H Blood Pressure 186/71 H Pulse Oximetry 94 Oxygen Delivery Room Air 09/15/22 06:00 09/15/22 07:22 09/15/22 08:00 Temperature 98.3 F Pulse Rate 80 88 Respiratory Rate 18 Blood Pressure 159/7
[2022-09-15] MEDS: APIXABAN 2.5 MG TABLET PO (21:13)
[2022-09-15] MEDS: MAGNESIUM SULF 2 GM/WATER 50ML 2 GM/50 ML BAG IVPB (21:14)
[2022-09-15] MEDS: POTASSIUM/PHOSPHORUS/SODIUM 1.5 GM PACKET 1 PACKET PO (21:14)
[2022-09-15] MEDS: POTASSIUM CHLORIDE 20 MEQ TABLET 40 MEQ PO (21:14)
[2022-09-15] MEDS: carvediloL 3.125 MG TABLET PO (21:14)
[2022-09-15] MEDS: ACETAMINOPHEN 325 MG TABLET 650 MG PO (21:33)
[2022-09-16] VITALS (17 sets, daily range): BP systolic 151–185; BP diastolic 60–85; PULSE 60–72; RESP 16–28; TEMP 35.6–36.9; O2SAT 97–99
[2022-09-16 05:13] LABS: Basophils Percent Auto 0.1 % (0.2-1.2); Hematocrit 34.8 % (37.0-47.0); Hemoglobin 11.3 g/dL (12.0-15.0); Immature Granulocyte Absolute 0.04 K/mm3 (0.00-0.031); Immature Granulocyte Percent A 0.5 % (0-0.5); Lymphocytes Absolute Auto 1.06 K/mm3 (0.9-3.2); Lymphocytes Percent Auto 13.2 % (18.3-44.2); Mean Corpuscular HGB Conc 32.5 g/dl (32-36); Mean Corpuscular Hemoglobin 30.3 pg (26-34); Mean Corpuscular Volume 93.3 fl (80-100); Mean Platelet Volume 10.3 fl (7.4-10.4); Monocytes Absolute Auto 0.5 K/mm3 (0.1-0.6); Monocytes Percent Auto 5.6 % (2.6-8.5); Neutrophils Absolute Auto 6.5 K/mm3 (1.3-6.7); Neutrophils Percent Auto 80.6 % (45.5-73.1); Platelet Count Result 172 k/mm3 (150-375); Red Blood Count 3.73 M/mm3 (4.2-5.4); White Blood Count 8.1 K/mm3 (4.5-10.0)
[2022-09-16 05:42] LABS: Alanine Aminotransferase 86 U/L (6-35); Albumin Level 2.6 g/dL (3.5-5.1); Alkaline Phosphatase 78 U/L (38-126); Anion Gap 5 mmol/L (8-16); Aspartate Amino Transferase 83 U/L (14-36); Bilirubin,Total 0.4 mg/dL (0.2-1.3); Blood Urea Nitrogen 10 mg/dL (7-17); Carbon Dioxide 25 mmol/L (22-30); Chloride 107 mmol/L (98-107); Estimated CRCL calculation 52 ml/min; Estimated Glomerular Filt Rate > 60; Glucose 136 mg/dL (65-110); Magnesium 2.2 mg/dL (1.6-2.3); Sodium 137 mmol/L (137-145)
[2022-09-16 08:02] LABS: Glucose Point of Care 142 mg/dl (65-105)
[2022-09-16 08:54] LABS: Creatine Kinase 32 U/L (30-135)
[2022-09-16] MEDS: APIXABAN 2.5 MG TABLET PO ×2 (09:15→21:29)
[2022-09-16] MEDS: LOSARTAN POTASSIUM 50 MG TABLET PO (09:15)
[2022-09-16] MEDS: OSELTAMIVIR PHOSPHATE 75 MG CAPSULE PO ×2 (09:15→21:29)
[2022-09-16] MEDS: carvediloL 3.125 MG TABLET PO ×2 (09:15→21:29)
[2022-09-16] MEDS: PRAVASTATIN SODIUM 10 MG TABLET PO (09:16)
[2022-09-16] MEDS: ISOSORBIDE MONONITRATE 30 MG TAB.ER.24H PO (09:16)
[2022-09-16] MEDS: ACETAMINOPHEN 325 MG TABLET 650 MG PO ×3 (09:30→22:22)
[2022-09-16 09:57] LABS: Folic Acid 15.4 ng/mL (2.76->20)
[2022-09-16] MEDS: POTASSIUM/PHOSPHORUS/SODIUM 1.5 GM PACKET 1 PACKET PO (11:52)
[2022-09-16 11:55] LABS: Glucose Point of Care 362 mg/dl (65-105)
[2022-09-16 11:55] LABS: Glucose Point of Care 304 mg/dl (65-105)
[2022-09-16] MEDS: INSULIN ASPART (*BKC) 100 UNITS/ML SUB-Q ×2 (11:55→17:10)
[2022-09-16] MEDS: ASPIRIN 81 MG CHEWABLE TABLET PO (12:11)
--- NOTE | 2022-09-16 12:47 | PM.IMPN ---
Progress Note: A&P Assessment and Plan (1) Atypical chest pain: Code(s): R07.89 - Other chest pain Status: Acute Assessment and Plan: Elevated troponin to 0.057 but flat. EKG shows paced rhythm. Chest pain is atypical and felt related to coughing. Elevated trop related to influenza. Cardiology consulted and appreciate their input. Continue to monitor. Continue ASA, Coreg and statin. (2) Elevated troponin: Code(s): R77.8 - Other specified abnormalities of plasma proteins Status: Acute Assessment and Plan: As above. (3) Acute hypokalemia: Code(s): E87.6 - Hypokalemia Status: Acute Assessment and Plan: Potassium 2.8 on admission. This was replaced. Mag also low and was replaced. Continue to monitor and replace as needed. (4) Acute UTI: Code(s): N39.0 - Urinary tract infection, site not specified Status: Acute Assessment and Plan: UA noted. Started on Rocephin for possible UTI. UCx negative. Stop Rocephin if repeat CXR negative (5) Influenza A: Code(s): J10.1 - Influenza due to other identified influenza virus with other respiratory manifestations Status: Acute Assessment and Plan: Influenza A positive on admission. CXR showing cardiomegaly but no infiltrates. Continue Tamiflu. Continue supportive care. Repeat CXR in the morning. (6) Physical deconditioning: Code(s): R53.81 - Other malaise Status: Acute Assessment and Plan: Continue PT/OT. Subjective Date/time seen: 09/16/22 12:47 Interval history: 87yo female with CKD, AFib, DM and HTN here for weakness and found to have influenza. Patient feels nauseous. She feels short of breath. She still has a cough productive clear sputum. She is tolerating liquids. She takes lactase quite frequently even if it is a non lactose meal. She states she can have nausea and vomiting up to 1 week after eating food contain lactose. She feels very weak. Exam Narrative: AF 151/70 72 18 97% ra Gen - NARD Chest - coarse inspiratory and expiratory rhonchi CV - RRR S1/S2. Pacemaker in left upper chest. Abd - soft. Nondistended. Mild diffuse tenderness without guarding. - Shore secured draining clear yellow urine Ext - No pedal edema. Decreased bilateral knee extension. 2+ DP pulse on the left Psych - depressed mood Skin - Warm and dry Objective Data Vital Signs Vital Signs: Vital Signs - 24 hr 09/15/22 14:00 09/15/22 15:53 09/15/22 16:30 Temperature 96.7 F L Pulse Rate 86 81 Respiratory Rate 16 Blood Pressure 174/69 H 143/65 H Pulse Oximetry 99 Oxygen Delivery 09/15/22 16:00 09/15/22 18:00 09/15/22 16:00 Temperature Pulse Rate 75 80 Respiratory Rate Blood Pressure Pulse Oximetry Oxygen Delivery Room Air 09/15/22 20:00 09/15/22 20:00 09/15/22 21:14 Temperature 97.7 F Pulse Rate 79 79 79 Respiratory Rate 22 H Blood Pressure 155/69 H Pulse Oximetry 97 Oxygen Delivery 09/15/22 20:00 09/15/22 22:00 09/15/22 23:56 Temperature 97.2 F L Pulse Rate 79 70 65 Respiratory Rate 22 H 24 H Blood Pressure 141/59 H Pulse Oximetry 97 97 Oxygen Delivery Room Air 09/16/22 00:00 09/16/22 00:00 09/16/22 02:00 Temperature Pulse Rate 61 69 Respiratory Rate Blood Pressure Pulse Oximetry Oxygen Delivery Room Air 09/15/22 21:33 09/16/22 04:00 09/16/22 04:00 Temperature Pulse Rate 62 Respiratory Rate Blood Pressure Pulse Oximetry 97 Oxygen Delivery Room Air Room Air 09/16/22 04:00 09/16/22 06:00 09/16/22 08:14 Temperature 97.1 F L 96.0 F L Pulse Rate 68 60 69 Respiratory Rate 20 28 H Blood Pressure 153/64 H 185/75 H Pulse Oximetry 97 99 Oxygen Delivery 09/16/22 09:15 09/16/22 08:00 09/16/22 10:00 Temperature Pulse Rate 70 60 66 Respiratory Rate Blood Pressure Pulse Oximetry Oxygen Delivery
[2022-09-16] MEDS: LACTATED RINGERS 1,000 ML 70 ML IV CONT (16:25)
[2022-09-16 16:34] LABS: Glucose Point of Care 204 mg/dl (65-105)
[2022-09-16 17:08] LABS: Glucose Point of Care 192 mg/dl (65-105)
[2022-09-16 21:01] LABS: Glucose Point of Care 341 mg/dl (65-105)
[2022-09-17] VITALS (10 sets, daily range): BP systolic 153–172; BP diastolic 62–72; PULSE 61–78; RESP 18–22; TEMP 36.1–37.1; O2SAT 96–100
[2022-09-17 05:13] LABS: Basophils Percent Auto 0.2 % (0.2-1.2); Hematocrit 33.2 % (37.0-47.0); Hemoglobin 10.6 g/dL (12.0-15.0); Immature Granulocyte Absolute 0.04 K/mm3 (0.00-0.031); Immature Granulocyte Percent A 0.6 % (0-0.5); Lymphocytes Absolute Auto 0.91 K/mm3 (0.9-3.2); Lymphocytes Percent Auto 14.3 % (18.3-44.2); Mean Corpuscular HGB Conc 31.9 g/dl (32-36); Mean Corpuscular Hemoglobin 30.4 pg (26-34); Mean Corpuscular Volume 95.1 fl (80-100); Mean Platelet Volume 11.1 fl (7.4-10.4); Monocytes Absolute Auto 0.4 K/mm3 (0.1-0.6); Neutrophils Percent Auto 78.9 % (45.5-73.1); Platelet Count Result 166 k/mm3 (150-375); Red Blood Count 3.49 M/mm3 (4.2-5.4); Red Cell Distribution Width 13.7 % (11.5-14.5); White Blood Count 6.4 K/mm3 (4.5-10.0)
[2022-09-17 05:23] LABS: Alanine Aminotransferase 143 U/L (6-35); Albumin Level 2.7 g/dL (3.5-5.1); Alkaline Phosphatase 68 U/L (38-126); Anion Gap 2 mmol/L (8-16); Aspartate Amino Transferase 109 U/L (14-36); Bilirubin,Total 0.3 mg/dL (0.2-1.3); Blood Urea Nitrogen 8 mg/dL (7-17); Calcium 7.6 mg/dL (8.4-10.2); Carbon Dioxide 28 mmol/L (22-30); Chloride 104 mmol/L (98-107); Estimated CRCL calculation 53 ml/min; Estimated Glomerular Filt Rate > 60; Glucose 149 mg/dL (65-110); Magnesium 1.7 mg/dL (1.6-2.3); Phosphorus 2.2 mg/dL (2.5-4.5); Potassium 3.7 mmol/L (3.4-5.0); Sodium 134 mmol/L (137-145)
[2022-09-17] MEDS: LACTATED RINGERS 1,000 ML 70 ML IV CONT (05:35)
[2022-09-17 09:10] LABS: Glucose Point of Care 134 mg/dl (65-105)
[2022-09-17] MEDS: ISOSORBIDE MONONITRATE 30 MG TAB.ER.24H PO (10:45)
[2022-09-17] MEDS: LOSARTAN POTASSIUM 50 MG TABLET PO (10:45)
[2022-09-17] MEDS: APIXABAN 2.5 MG TABLET PO ×2 (10:45→21:10)
[2022-09-17] MEDS: OSELTAMIVIR PHOSPHATE 75 MG CAPSULE PO ×2 (10:45→21:10)
[2022-09-17] MEDS: carvediloL 3.125 MG TABLET PO ×2 (10:45→21:09)
[2022-09-17] MEDS: ASPIRIN 81 MG CHEWABLE TABLET PO (10:46)
[2022-09-17] MEDS: POTASSIUM/PHOSPHORUS/SODIUM 1.5 GM PACKET 1 PACKET PO (10:46)
[2022-09-17 11:50] LABS: Glucose Point of Care 231 mg/dl (65-105)
--- NOTE | 2022-09-17 11:55 | ADMGEN ---
This patient, Dinorah Thorpe, was admitted to 3 Med Surg Room 301-01 @ 1140. Patient/family oriented to hospital policies and general routines including ID bracelet, bed and alarms, visiting hours, pain management, procedures, bathroom and other care routines, personal items, smoking policy, room service/diet, and visiting hours. Information on how to activate the Rapid Response Team has been discussed. Patient/Family are encouraged to report perceived risks to care and to ask questions if they do not understand what they are told or what they should do.
--- NOTE | 2022-09-17 12:19 | PM.IMPN ---
Progress Note: A&P Assessment and Plan (1) Atypical chest pain: Code(s): R07.89 - Other chest pain Status: Acute Assessment and Plan: Elevated troponin to 0.057 but flat. EKG shows paced rhythm. Chest pain is atypical and felt related to coughing. Elevated trop related to influenza. Cardiology consulted and appreciate their input. Continue to monitor. Continue ASA, Coreg and statin. (2) Elevated troponin: Code(s): R77.8 - Other specified abnormalities of plasma proteins Status: Acute Assessment and Plan: As above. (3) Acute hypokalemia: Code(s): E87.6 - Hypokalemia Status: Acute Assessment and Plan: Potassium 2.8 on admission. This was replaced. Mag also low and was replaced. Continue to monitor and replace as needed. (4) Influenza A: Code(s): J10.1 - Influenza due to other identified influenza virus with other respiratory manifestations Status: Acute Assessment and Plan: Influenza A positive on admission. CXR showing cardiomegaly but no infiltrates. Started on Tamiflu. No fevers and WBC normal. Repeat CXR diffuse bilateral infiltrates with peribronchial thickening. Suspect likely viral PNA. She is on Lasix daily so will resume today. Continue Tamiflu. Continue supportive care. Okay to stop Rocephin. (5) Physical deconditioning: Code(s): R53.81 - Other malaise Status: Acute Assessment and Plan: Continue PT/OT. (6) Hypertension: Code(s): I10 - Essential (primary) hypertension Status: Acute Assessment and Plan: Patient's blood pressure was reviewed on 09/17/22 Blood pressure poorly controlled. Will continue current medications. Resume lasix. (7) Paroxysmal atrial flutter: Code(s): I48.92 - Unspecified atrial flutter Status: Chronic Assessment and Plan: HR stable. Paced rhythm by EKG. Continue Coreg for rate control and Eliquis for stroke prophylaxis. (8) Diabetes mellitus: Code(s): E11.9 - Type 2 diabetes mellitus without complications Status: Acute Assessment and Plan: A1c 7.0. The patient's blood glucose was reviewed on 09/17/22 Glucose remains elevated. Continue AccuCheks covering with sliding scale. Hypoglycemia protocol available as needed. Resume home meds but watch closely since not eating much. Dietary has seen patient and has added appropriate supplements. (9) Acute UTI: Code(s): N39.0 - Urinary tract infection, site not specified Status: Acute Assessment and Plan: UA noted. UCx negative. UTI ruled out (10) Elevated LFTs: Code(s): R79.89 - Other specified abnormal findings of blood chemistry Status: Acute Assessment and Plan: AST/ALT higher today. [place] related to viral illness. Will hold statin and check RUQ US. Follow Subjective Date/time seen: 09/17/22 12:19 Interval history: 87yo female with CKD, AFib, DM and HTN here for weakness and found to have influenza. patient states she feels weak because she has any eaten in 13 hours although she was able to take liquids including Ensure last evening as well as this morning. She complains that solid food causes her colitis to flare. No chest pain or shortness of breath. She is having abdominal pain and nausea. Cough is productive clear sputum. Exam Narrative: AF 162/64 78 18 96% ra Gen - NARD Chest - coarse inspiratory and expiratory rhonchi but improved air exchange today. nml RR CV - RRR S1/S2. Pacemaker in left upper chest Abd - soft. Nondistended. Mild diffuse tenderness without guarding. +BS Ext - No pedal edema. Psych - depressed mood but more animated today Skin - Warm and dry Objective Data Vital Signs Vital Signs: Vital Signs - 24 hr 09/16/22 12:22 09/16/22 15:57 09/16/22 14:00 Temperature 98.4 F Pulse Rate 72 64 Respiratory Rate 18 Blood Pressure 151/70 H Pulse Oximetry 97 Oxygen
[2022-09-17] MEDS: ONDANSETRON INJ 4 MG/2 ML VIAL IV PUSH (14:44)
[2022-09-17] MEDS: ACETAMINOPHEN 325 MG TABLET 650 MG PO ×2 (14:49→21:09)
[2022-09-17 17:03] LABS: Glucose Point of Care 342 mg/dl (65-105)
[2022-09-17] MEDS: INSULIN ASPART (*BKC) 100 UNITS/ML SUB-Q (17:53)
[2022-09-17] MEDS: INSULIN HUMAN ISOPHAN/REGULAR 70/30 (*BKC) 100 UNITS/ML 10 UNITS SUB-Q (17:56)
[2022-09-17] MEDS: DICYCLOMINE HCL 10 MG CAPSULE PO (19:39)
[2022-09-17] MEDS: FUROSEMIDE 40 MG TABLET PO (21:10)
[2022-09-17 22:48] LABS: Glucose Point of Care 187 mg/dl (65-105)
[2022-09-18 06:00] VITALS: BP 178/59; PULSE 81; RESP 18; TEMP 36.2; O2SAT 97
[2022-09-18] MEDS: LEVOTHYROXINE SODIUM 112 MCG TABLET PO (06:07)
[2022-09-18 06:46] LABS: Alanine Aminotransferase 99 U/L (6-35); Albumin Level 2.8 g/dL (3.5-5.1); Alkaline Phosphatase 72 U/L (38-126); Anion Gap 3 mmol/L (8-16); Aspartate Amino Transferase 43 U/L (14-36); Bilirubin,Total 0.3 mg/dL (0.2-1.3); Blood Urea Nitrogen 8 mg/dL (7-17); Calcium 7.5 mg/dL (8.4-10.2); Carbon Dioxide 30 mmol/L (22-30); Chloride 104 mmol/L (98-107); Estimated CRCL calculation 55 ml/min; Estimated Glomerular Filt Rate > 60; Glucose 94 mg/dL (65-110); Potassium 3.3 mmol/L (3.4-5.0); Sodium 137 mmol/L (137-145)
[2022-09-18 08:19] LABS: Glucose Point of Care 94 mg/dl (65-105)
[2022-09-18] MEDS: DICYCLOMINE HCL 10 MG CAPSULE PO (09:06)
[2022-09-18] MEDS: LOSARTAN POTASSIUM 50 MG TABLET PO (09:06)
[2022-09-18] MEDS: FUROSEMIDE 40 MG TABLET PO (09:07)
[2022-09-18] MEDS: ACETAMINOPHEN 325 MG TABLET 650 MG PO ×3 (09:07→20:27)
[2022-09-18] MEDS: FERROUS SULFATE 324 MG TABLET PO (09:07)
[2022-09-18] MEDS: ISOSORBIDE MONONITRATE 30 MG TAB.ER.24H PO (09:07)
[2022-09-18] MEDS: POTASSIUM CHLORIDE 20 MEQ TABLET PO (09:07)
[2022-09-18 09:08] VITALS: PULSE 81
[2022-09-18] MEDS: carvediloL 3.125 MG TABLET PO ×2 (09:08→20:16)
[2022-09-18] MEDS: POTASSIUM CHLORIDE 10 MEQ TABLET.ER PO (09:08)
[2022-09-18] MEDS: APIXABAN 2.5 MG TABLET PO ×2 (09:08→20:16)
[2022-09-18] MEDS: OSELTAMIVIR PHOSPHATE 75 MG CAPSULE PO ×2 (09:08→20:16)
[2022-09-18] MEDS: ASPIRIN 81 MG CHEWABLE TABLET PO (09:08)
[2022-09-18] MEDS: SPIRONOLACTONE 25 MG TABLET PO (09:08)
--- NOTE | 2022-09-18 11:40 | PCOTNOTE ---
Attempted to see pt for Occupational Therapy. Pt refused stating I'm worn out. Pt was educated on the importance continued therapy for increase strengthening and independence with daily occupations. Pt is in agreement with needing to work with therapy, however, states that she just got cleaned up and is too tired right now. Will continue per POC duration/frequency tomorrow.
[2022-09-18 12:08] LABS: Glucose Point of Care 249 mg/dl (65-105)
[2022-09-18] MEDS: INSULIN ASPART (*BKC) 100 UNITS/ML SUB-Q (12:46)
[2022-09-18 14:05] VITALS: BP 136/61; PULSE 71; RESP 14; TEMP 37.1; O2SAT 95
--- NOTE | 2022-09-18 15:17 | PM.IMPN ---
Progress Note: A&P Assessment and Plan (1) Influenza A: Code(s): J10.1 - Influenza due to other identified influenza virus with other respiratory manifestations Status: Acute Assessment and Plan: Influenza A positive on admission. CXR showing cardiomegaly but no infiltrates. Started on Tamiflu. No fevers and WBC normal. Repeat CXR diffuse bilateral infiltrates with peribronchial thickening. Suspect likely viral PNA. She was on Lasix daily which was resumed. She seems more comfortable today. Continue Tamiflu. Continue supportive care. (2) Atypical chest pain: Code(s): R07.89 - Other chest pain Status: Acute Assessment and Plan: Elevated troponin to 0.057 but flat. EKG shows paced rhythm. Chest pain is atypical and felt related to coughing. Elevated trop related to influenza. Cardiology consulted and appreciate their input. Continue to monitor. Continue ASA, Coreg and statin. (3) Elevated troponin: Code(s): R77.8 - Other specified abnormalities of plasma proteins Status: Acute Assessment and Plan: As above. (4) Acute hypokalemia: Code(s): E87.6 - Hypokalemia Status: Acute Assessment and Plan: Potassium 2.8 on admission. This was replaced. Mag also low and was replaced. Continue to monitor and replace as needed. (5) Physical deconditioning: Code(s): R53.81 - Other malaise Status: Acute Assessment and Plan: Continue PT/OT. Plan for SNF at discharge. (6) Hypertension: Code(s): I10 - Essential (primary) hypertension Status: Acute Assessment and Plan: Patient's blood pressure was reviewed on 09/18 Blood pressure better controlled. Will continue current medications. (7) Paroxysmal atrial flutter: Code(s): I48.92 - Unspecified atrial flutter Status: Chronic Assessment and Plan: HR stable. Paced rhythm by EKG. Continue Coreg for rate control and Eliquis for stroke prophylaxis. (8) Diabetes mellitus: Code(s): E11.9 - Type 2 diabetes mellitus without complications Status: Acute Assessment and Plan: A1c 7.0. The patient's blood glucose was reviewed on 09/18 Glucose remains elevated at times. Continue AccuCheks covering with sliding scale. Hypoglycemia protocol available as needed. Home meds resumed. Watch for low glucose values. Dietary has seen patient and has added appropriate supplements. (9) Elevated LFTs: Code(s): R79.89 - Other specified abnormal findings of blood chemistry Status: Acute Assessment and Plan: AST/ALT trending down today. RUQ normal. [place] related to viral illness. Continue to hold statin . Follow (10) Acute UTI: Code(s): N39.0 - Urinary tract infection, site not specified Status: Acute Assessment and Plan: UA noted. UCx negative. UTI ruled out Subjective Date/time seen: 09/18/22 15:17 Interval history: 87yo female with CKD, AFib, DM and HTN here for weakness and found to have influenza. She states she had Shore placed at [place] prior to admission but not sure when. It was placed due to urine incontinence. SOB better. No CP. Cough mostly dry. Chest wall pain with coughing. Exam Narrative: AF 136/61 71 14 95% ra Gen - NARD Chest -mild inspiratory and expiratory rhonchi. nml RR CV - RRR S1/S2. Pacemaker in left upper chest Abd - soft. NT/ND, +BS - Shore secured draining clear yellow urine Ext - No pedal edema. Psych - mood normal Skin - Warm and dry Objective Data Vital Signs Vital Signs: Vital Signs - 24 hr 09/17/22 21:09 09/17/22 20:20 09/17/22 22:00 Temperature 96.9 F L Pulse Rate 72 78 Respiratory Rate 19 Blood Pressure 153/70 H Pulse Oximetry 98 Oxygen Delivery Room Air 09/18/22 06:00 09/18/22 09:08 09/18/22 09:00 Temperature 97.2 F L Pulse Rate 81 81 Respiratory Rate 18 Blood Pressure 178/59 H Pulse Oximetr
[2022-09-18 17:22] LABS: Glucose Point of Care 135 mg/dl (65-105)
[2022-09-18 20:16] VITALS: PULSE 76
[2022-09-18 21:59] LABS: Glucose Point of Care 215 mg/dl (65-105)
[2022-09-18 22:00] VITALS: BP 165/68; PULSE 72; RESP 20; TEMP 36.2; O2SAT 99
--- NOTE | 2022-09-18 22:56 | PC.NURSE ---
Patient is diabetic and requesting diet lawrence mist. All hospital floors are completely out of diet lawrence mist. Patient states that she has to drink diet clear soda ONLY. I suggested patient drink some water, to which she replied she is allergic. According to patient her allergic reaction is vomiting. I informed her that lawrence mist contains water. I suggested a different diet soda but she says she will get sick from that too. Patient is demanding clear soda and we only have regular lawrence mist. I educated her against drinking lawrence mist that has sugar in it due to her diabetes; patient continues to refuse any other drink. Lawrence mist was given and I will continue to monitor blood sugars.
[2022-09-19] VITALS (9 sets, daily range): BP systolic 139–165; BP diastolic 66–74; PULSE 65–83; RESP 18–20; TEMP 35.8–36.6; O2SAT 95–98
[2022-09-19] MEDS: ACETAMINOPHEN 325 MG TABLET 650 MG PO ×2 (00:32→22:21)
[2022-09-19] MEDS: LEVOTHYROXINE SODIUM 112 MCG TABLET PO (05:46)
[2022-09-19 07:07] LABS: Anion Gap 2 mmol/L (8-16); Blood Urea Nitrogen 13 mg/dL (7-17); Calcium 7.6 mg/dL (8.4-10.2); Carbon Dioxide 32 mmol/L (22-30); Chloride 98 mmol/L (98-107); Estimated CRCL calculation 47 ml/min; Estimated Glomerular Filt Rate > 60; Glucose 136 mg/dL (65-110); Magnesium 1.4 mg/dL (1.6-2.3); Potassium 3.9 mmol/L (3.4-5.0); Sodium 132 mmol/L (137-145)
[2022-09-19 08:06] LABS: Glucose Point of Care 150 mg/dl (65-105)
--- NOTE | 2022-09-19 08:43 | PCOTNOTE ---
Attempted to see patient this am, however patient refused. Pt stated, Oh, I can't get up. I had a terrible night, and I was so sick. Pt declined any activity at this time.
[2022-09-19] MEDS: ASPIRIN 81 MG CHEWABLE TABLET PO (08:46)
[2022-09-19] MEDS: FERROUS SULFATE 324 MG TABLET PO (08:47)
[2022-09-19] MEDS: OSELTAMIVIR PHOSPHATE 75 MG CAPSULE PO ×2 (08:47→20:27)
[2022-09-19] MEDS: FUROSEMIDE 40 MG TABLET PO (08:47)
[2022-09-19] MEDS: ISOSORBIDE MONONITRATE 30 MG TAB.ER.24H PO (08:47)
[2022-09-19] MEDS: LOSARTAN POTASSIUM 50 MG TABLET PO (08:47)
[2022-09-19] MEDS: carvediloL 3.125 MG TABLET PO ×2 (08:47→20:27)
[2022-09-19] MEDS: APIXABAN 2.5 MG TABLET PO ×2 (08:47→20:27)
[2022-09-19] MEDS: SPIRONOLACTONE 25 MG TABLET PO (08:48)
[2022-09-19] MEDS: POTASSIUM CHLORIDE 10 MEQ TABLET.ER PO (08:48)
[2022-09-19] MEDS: INSULIN HUMAN ISOPHAN/REGULAR 70/30 (*BKC) 100 UNITS/ML 10 UNITS SUB-Q (08:49)
[2022-09-19 11:44] LABS: Glucose Point of Care 296 mg/dl (65-105)
[2022-09-19] MEDS: MAGNESIUM OXIDE 400 MG TABLET PO (12:47)
[2022-09-19] MEDS: INSULIN ASPART (*BKC) 100 UNITS/ML SUB-Q ×2 (12:47→17:36)
--- NOTE | 2022-09-19 14:39 | PM.IMPN ---
Progress Note: A&P Assessment and Plan (1) Influenza A: Code(s): J10.1 - Influenza due to other identified influenza virus with other respiratory manifestations Status: Acute Assessment and Plan: Influenza A positive on admission. CXR showing cardiomegaly but no infiltrates. Started on Tamiflu. No fevers and WBC normal. Repeat CXR showing diffuse bilateral infiltrates with peribronchial thickening. Suspect likely viral PNA. She was on Lasix daily which was resumed. She seems comfortable but wheezing. Continue Tamiflu. Continue supportive care. Add Xopenex (2) Atypical chest pain: Code(s): R07.89 - Other chest pain Status: Acute Assessment and Plan: Elevated troponin to 0.057 but flat. EKG shows paced rhythm. Chest pain is atypical and felt related to coughing. Elevated trop related to influenza. Cardiology consulted and appreciate their input. Continue to monitor. Continue ASA and Coreg; continue to hold statin. (3) Elevated troponin: Code(s): R77.8 - Other specified abnormalities of plasma proteins Status: Acute Assessment and Plan: As above. (4) Acute hypokalemia: Code(s): E87.6 - Hypokalemia Status: Acute Assessment and Plan: Potassium 2.8 on admission. This was replaced. Mag also low and was replaced. Continue to monitor and replace as needed. (5) Physical deconditioning: Code(s): R53.81 - Other malaise Status: Acute Assessment and Plan: Continue PT/OT. Plan for SNF at discharge. (6) Hypertension: Code(s): I10 - Essential (primary) hypertension Status: Acute Assessment and Plan: Patient's blood pressure was reviewed on 09/19 Blood pressure better controlled. Will continue current medications. (7) Paroxysmal atrial flutter: Code(s): I48.92 - Unspecified atrial flutter Status: Chronic Assessment and Plan: HR stable. Paced rhythm by EKG. Continue Coreg for rate control and Eliquis for stroke prophylaxis. (8) Diabetes mellitus: Code(s): E11.9 - Type 2 diabetes mellitus without complications Status: Acute Assessment and Plan: A1c 7.0. The patient's blood glucose was reviewed on 09/19 Glucose remains elevated at times. Continue AccuCheks covering with sliding scale. Hypoglycemia protocol available as needed. Home meds resumed. Advance home meds. Dietary has seen patient and has added appropriate supplements. (9) Elevated LFTs: Code(s): R79.89 - Other specified abnormal findings of blood chemistry Status: Acute Assessment and Plan: AST/ALT trending down now. RUQ normal. [place] related to viral illness. Continue to hold statin . Follow Subjective Date/time seen: 09/19/22 14:39 Interval history: 87yo female with CKD, AFib, DM and HTN here for weakness and found to have influenza. Patient had trouble sleeping last night. She feels short of breath. Her cough is better. She states that her Shore catheter is not chronic but refuses to have it taken out. Exam Narrative: AF 139/68 82 18 98% ra Gen - NARD Chest - Inspiratory rhonchi and scattered expiratory wheezes. CV - RRR S1/S2. Pacemaker in left upper chest Abd - soft. NT/ND, +BS - Shore secured draining clear yellow urine Ext - No pedal edema. Psych - Anxious mood Skin - Warm and dry Objective Data Vital Signs Vital Signs: Vital Signs - 24 hr 09/18/22 20:16 09/18/22 20:00 09/18/22 22:00 Temperature 97.2 F L Pulse Rate 76 72 Respiratory Rate 20 Blood Pressure 165/68 H Pulse Oximetry 99 Oxygen Delivery Room Air 09/19/22 06:00 09/19/22 08:47 09/19/22 14:00 Temperature 96.5 F L 96.6 F L Pulse Rate 65 70 82 Respiratory Rate 18 18 Blood Pressure 165/66 H 139/68 Pulse Oximetry 98 98 Oxygen Delivery Intake/Output Intake/Output: Intake & Output 09/16/22 09/17/22 09/18/22 09/19/22 23:59 23:59 23:59
[2022-09-19 16:40] LABS: Glucose Point of Care 296 mg/dl (65-105)
[2022-09-19] MEDS: INSULIN HUMAN ISOPHAN/REGULAR 70/30 (*BKC) 100 UNITS/ML 12 UNITS SUB-Q (17:36)
[2022-09-19] MEDS: MELATONIN 3 MG TABLET PO (20:27)
[2022-09-19 23:23] LABS: Glucose Point of Care 205 mg/dl (65-105)
[2022-09-20] VITALS (11 sets, daily range): BP systolic 130–152; BP diastolic 59–73; PULSE 66–84; RESP 14–19; TEMP 35.9–36.7; O2SAT 96–99
[2022-09-20] MEDS: LEVOTHYROXINE SODIUM 112 MCG TABLET PO (05:59)
[2022-09-20 08:43] LABS: Glucose Point of Care 133 mg/dl (65-105)
[2022-09-20] MEDS: ASPIRIN 81 MG CHEWABLE TABLET PO (08:58)
[2022-09-20] MEDS: FERROUS SULFATE 324 MG TABLET PO (08:59)
[2022-09-20] MEDS: APIXABAN 2.5 MG TABLET PO ×2 (08:59→20:18)
[2022-09-20] MEDS: carvediloL 3.125 MG TABLET PO ×2 (08:59→20:17)
[2022-09-20] MEDS: FUROSEMIDE 40 MG TABLET PO (08:59)
[2022-09-20] MEDS: ISOSORBIDE MONONITRATE 30 MG TAB.ER.24H PO (09:00)
[2022-09-20] MEDS: LOSARTAN POTASSIUM 50 MG TABLET PO (09:00)
[2022-09-20] MEDS: SPIRONOLACTONE 25 MG TABLET PO (09:00)
[2022-09-20] MEDS: MAGNESIUM OXIDE 400 MG TABLET PO (09:00)
[2022-09-20] MEDS: POTASSIUM CHLORIDE 10 MEQ TABLET.ER PO (09:00)
[2022-09-20] MEDS: INSULIN HUMAN ISOPHAN/REGULAR 70/30 (*BKC) 100 UNITS/ML 12 UNITS SUB-Q ×2 (09:01→17:13)
[2022-09-20 12:12] LABS: Glucose Point of Care 249 mg/dl (65-105)
[2022-09-20] MEDS: INSULIN ASPART (*BKC) 100 UNITS/ML SUB-Q (12:21)
[2022-09-20] MEDS: ONDANSETRON INJ 4 MG/2 ML VIAL IV PUSH (16:26)
[2022-09-20 17:07] LABS: Glucose Point of Care 122 mg/dl (65-105)
--- NOTE | 2022-09-20 17:59 | PM.IMPN ---
Progress Note: A&P Assessment and Plan (1) Influenza A: Code(s): J10.1 - Influenza due to other identified influenza virus with other respiratory manifestations Status: Acute Assessment and Plan: Influenza A positive on admission. CXR showing cardiomegaly but no infiltrates. Started on Tamiflu. No fevers and WBC normal. Repeat CXR showing diffuse bilateral infiltrates with peribronchial thickening. Suspect likely viral PNA. She was on Lasix daily which was resumed. She seems comfortable with just a few rhonchi. She completed Tamiflu. Continue supportive care. Awaiting placement (2) Atypical chest pain: Code(s): R07.89 - Other chest pain Status: Acute Assessment and Plan: Elevated troponin to 0.057 but flat. EKG shows paced rhythm. Chest pain is atypical and felt related to coughing. Elevated trop related to influenza. Cardiology consulted and appreciate their input. Continue to monitor. Continue ASA and Coreg; continue to hold statin. (3) Elevated troponin: Code(s): R77.8 - Other specified abnormalities of plasma proteins Status: Acute Assessment and Plan: As above. (4) Acute hypokalemia: Code(s): E87.6 - Hypokalemia Status: Acute Assessment and Plan: Potassium 2.8 on admission. This was replaced. Mag also low and was replaced. Continue to monitor and replace as needed. (5) Physical deconditioning: Code(s): R53.81 - Other malaise Status: Acute Assessment and Plan: Continue PT/OT. Plan for SNF at discharge. (6) Hypertension: Code(s): I10 - Essential (primary) hypertension Status: Acute Assessment and Plan: Patient's blood pressure was reviewed on 09/20 Blood pressure better controlled. Will continue current medications. (7) Paroxysmal atrial flutter: Code(s): I48.92 - Unspecified atrial flutter Status: Chronic Assessment and Plan: HR stable. Paced rhythm by EKG. Continue Coreg for rate control and Eliquis for stroke prophylaxis. (8) Diabetes mellitus: Code(s): E11.9 - Type 2 diabetes mellitus without complications Status: Acute Assessment and Plan: A1c 7.0. The patient's blood glucose was reviewed on 09/20 Glucose remains elevated at times but overall stable. Continue AccuCheks covering with sliding scale. Hypoglycemia protocol available as needed. Home meds resumed. Dietary has seen patient and has added appropriate supplements. (9) Elevated LFTs: Code(s): R79.89 - Other specified abnormal findings of blood chemistry Status: Acute Assessment and Plan: AST/ALT trending down now. RUQ normal. [place] related to viral illness. Continue to hold statin. Resume statin at discharge. Follow Subjective Date/time seen: 09/20/22 17:59 Interval history: 87yo female with CKD, AFib, DM and HTN here for weakness and found to have influenza. no problems overnight. Cough is better. She is voiding since the [place] catheter was removed. Exam Narrative: AF 96.7 130/59 761 4 98% ra Gen - NARD Chest - Few scattered expiratory rhonchi. CV - RRR S1/S2. Pacemaker in left upper chest Abd - soft. NT/ND, +BS Ext - No pedal edema. Psych - Normal mood. Skin - Warm and dry Objective Data Vital Signs Vital Signs: Vital Signs - 24 hr 09/19/22 20:14 09/19/22 20:14 09/19/22 20:27 Temperature Pulse Rate 83 83 83 Respiratory Rate 18 18 Blood Pressure Pulse Oximetry 95 Oxygen Delivery Room Air Fraction of Inspired Oxygen 21 09/19/22 22:00 09/19/22 20:00 09/20/22 02:05 Temperature 97.8 F Pulse Rate 74 74 70 Respiratory Rate 18 18 16 Blood Pressure 153/74 H Pulse Oximetry 97 97 Oxygen Delivery Room Air Fraction of Inspired Oxygen 21 09/20/22 06:00 09/20/22 08:59 09/20/22 09:13 Temperature 98.1 F Pulse Rate 75 66 78 Respiratory Rate 19 16 Blood Pressure 152/73 H Pulse
[2022-09-20] MEDS: MELATONIN 3 MG TABLET PO (20:17)
[2022-09-20 21:27] LABS: Glucose Point of Care 157 mg/dl (65-105)
--- NOTE | 2022-09-20 23:06 | PCRCNOTE ---
past window of administration. see next available administration.
[2022-09-21] VITALS (12 sets, daily range): BP systolic 115–160; BP diastolic 56–85; PULSE 68–85; RESP 16–20; TEMP 35.8–36.4; O2SAT 98–100
[2022-09-21] MEDS: ACETAMINOPHEN 325 MG TABLET 650 MG PO ×2 (01:23→21:39)
[2022-09-21] MEDS: LEVOTHYROXINE SODIUM 112 MCG TABLET PO (06:45)
[2022-09-21 08:00] LABS: Glucose Point of Care 116 mg/dl (65-105)
[2022-09-21] MEDS: carvediloL 3.125 MG TABLET PO ×2 (08:45→20:52)
[2022-09-21] MEDS: APIXABAN 2.5 MG TABLET PO ×2 (08:45→20:54)
[2022-09-21] MEDS: ASPIRIN 81 MG CHEWABLE TABLET PO (08:45)
[2022-09-21] MEDS: LOSARTAN POTASSIUM 50 MG TABLET PO (08:46)
[2022-09-21] MEDS: SPIRONOLACTONE 25 MG TABLET PO (08:46)
[2022-09-21] MEDS: POTASSIUM CHLORIDE 10 MEQ TABLET.ER PO (08:46)
[2022-09-21] MEDS: MAGNESIUM OXIDE 400 MG TABLET PO (08:46)
[2022-09-21] MEDS: FUROSEMIDE 40 MG TABLET PO (08:46)
[2022-09-21] MEDS: FERROUS SULFATE 324 MG TABLET PO (08:46)
[2022-09-21] MEDS: ISOSORBIDE MONONITRATE 30 MG TAB.ER.24H PO (08:46)
[2022-09-21] MEDS: INSULIN HUMAN ISOPHAN/REGULAR 70/30 (*BKC) 100 UNITS/ML 12 UNITS SUB-Q ×2 (08:49→17:51)
--- NOTE | 2022-09-21 09:16 | PM.DS ---
DS: Admitting Diagnosis Discharge Date 09/21/22 Admitting Diagnosis Generalized weakness DS: Discharge Diagnosis Discharge Diagnosis (1) Influenza A: Code(s): J10.1 - Influenza due to other identified influenza virus with other respiratory manifestations Status: Acute Assessment and Plan: Influenza A positive on admission. CXR showing cardiomegaly but no infiltrates. Started on Tamiflu. No fevers and WBC normal. Repeat CXR showing diffuse bilateral infiltrates with peribronchial thickening. Suspect likely viral PNA. She was on Lasix daily which was resumed. She seems comfortable with just a few rhonchi. She completed Tamiflu. Continue supportive care. Awaiting placement (2) Atypical chest pain: Code(s): R07.89 - Other chest pain Status: Acute Assessment and Plan: Elevated troponin to 0.057 but flat. EKG shows paced rhythm. Chest pain is atypical and felt related to coughing. Elevated trop related to influenza. Cardiology consulted and appreciate their input. Continue to monitor. Continue ASA and Coreg; continue to hold statin. (3) Elevated troponin: Code(s): R77.8 - Other specified abnormalities of plasma proteins Status: Acute Assessment and Plan: As above. (4) Acute hypokalemia: Code(s): E87.6 - Hypokalemia Status: Acute Assessment and Plan: Potassium 2.8 on admission. This was replaced. Mag also low and was replaced. Continue to monitor and replace as needed. (5) Physical deconditioning: Code(s): R53.81 - Other malaise Status: Acute Assessment and Plan: Continue PT/OT. Plan for SNF at discharge. (6) Hypertension: Code(s): I10 - Essential (primary) hypertension Status: Acute Assessment and Plan: Patient's blood pressure was reviewed on 09/20 Blood pressure better controlled. Will continue current medications. (7) Paroxysmal atrial flutter: Code(s): I48.92 - Unspecified atrial flutter Status: Chronic Assessment and Plan: HR stable. Paced rhythm by EKG. Continue Coreg for rate control and Eliquis for stroke prophylaxis. (8) Diabetes mellitus: Code(s): E11.9 - Type 2 diabetes mellitus without complications Status: Acute Assessment and Plan: A1c 7.0. The patient's blood glucose was reviewed on 09/20 Glucose remains elevated at times but overall stable. Continue AccuCheks covering with sliding scale. Hypoglycemia protocol available as needed. Home meds resumed. Dietary has seen patient and has added appropriate supplements. (9) Elevated LFTs: Code(s): R79.89 - Other specified abnormal findings of blood chemistry Status: Acute Assessment and Plan: AST/ALT trending down now. RUQ normal. [place] related to viral illness. Continue to hold statin. Resume statin at discharge. 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 Patient presents for evaluation to the emergency room due to generalized weakness.? Patient was recently discharged from [facility] to home.? Preliminary workup was significant for slightly elevated troponins. Cardiology was consulted and did not think there is any cardiac etiology to her elevated troponin. They recommended no further workup and signed off. Patient was found to be flu positive and completed a 5 day course of Tamiflu. She was also noted to have an abnormal urinalysis and started on Rocephin. Culture came back negative, Rocephin discontinued. Patient was initially thought to be dehydrated and so Lasix was held at admission, a few days into her stay, this was resumed. Patient was noted to have elevated LFTs, trended down. Right uppe
[2022-09-21 10:16] LABS: Basophils Percent Auto 0.7 % (0.2-1.2); Hematocrit 34.3 % (37.0-47.0); Hemoglobin 10.7 g/dL (12.0-15.0); Immature Granulocyte Absolute 0.03 K/mm3 (0.00-0.031); Immature Granulocyte Percent A 0.7 % (0-0.5); Lymphocytes Absolute Auto 0.76 K/mm3 (0.9-3.2); Lymphocytes Percent Auto 18.1 % (18.3-44.2); Mean Corpuscular HGB Conc 31.2 g/dl (32-36); Mean Corpuscular Hemoglobin 30.1 pg (26-34); Mean Corpuscular Volume 96.3 fl (80-100); Mean Platelet Volume 10.3 fl (7.4-10.4); Monocytes Absolute Auto 0.4 K/mm3 (0.1-0.6); Monocytes Percent Auto 10.2 % (2.6-8.5); Neutrophils Percent Auto 70.3 % (45.5-73.1); Platelet Count Result 279 k/mm3 (150-375); Red Blood Count 3.56 M/mm3 (4.2-5.4); Red Cell Distribution Width 13.4 % (11.5-14.5); White Blood Count 4.2 K/mm3 (4.5-10.0)
[2022-09-21 10:27] LABS: Alanine Aminotransferase 52 U/L (6-35); Albumin Level 3.1 g/dL (3.5-5.1); Alkaline Phosphatase 85 U/L (38-126); Anion Gap 6 mmol/L (8-16); Aspartate Amino Transferase 38 U/L (14-36); Bilirubin,Total 0.2 mg/dL (0.2-1.3); Blood Urea Nitrogen 18 mg/dL (7-17); Calcium 8.1 mg/dL (8.4-10.2); Carbon Dioxide 30 mmol/L (22-30); Chloride 93 mmol/L (98-107); Estimated CRCL calculation 47 ml/min; Estimated Glomerular Filt Rate > 60; Glucose 242 mg/dL (65-110); Potassium 4.1 mmol/L (3.4-5.0); Sodium 129 mmol/L (137-145)
--- NOTE | 2022-09-21 11:29 | PCOTNOTE ---
Attempted to see patient this am, however patient refused. Patient stated, I'm tired. I want to rest a little bit, eat, rest a little bit, and then maybe I'll walk.
[2022-09-21 11:58] LABS: Glucose Point of Care 258 mg/dl (65-105)
--- NOTE | 2022-09-21 11:59 | PCPTNOTE ---
Patient declined PT at this time stating I want to set up in bed and eat my lunch when it comes and then take a rest. After that I know I will feel like getting up and walking all over the room. Educated patient on the improtance of being up out of bed for meals and to increase her activity. Patient continued to decline PT at this time.
[2022-09-21] MEDS: INSULIN ASPART (*BKC) 100 UNITS/ML SUB-Q (12:18)
[2022-09-21 17:35] LABS: Glucose Point of Care 160 mg/dl (65-105)
[2022-09-21] MEDS: MELATONIN 3 MG TABLET PO (20:53)
[2022-09-22] VITALS (12 sets, daily range): BP systolic 126–161; BP diastolic 55–83; PULSE 74–93; RESP 14–20; TEMP 36.2–36.6; O2SAT 95–99
--- NOTE | 2022-09-22 03:48 | PC.NURSE ---
Pt is resting comfortably. Pt is unable to participate or contribute in plan of care. Pt expresses no complaints or needs at this time. Will continue to monitor pt.
[2022-09-22] MEDS: LEVOTHYROXINE SODIUM 112 MCG TABLET PO (06:17)
[2022-09-22 08:27] LABS: Glucose Point of Care 140 mg/dl (65-105)
[2022-09-22] MEDS: ASPIRIN 81 MG CHEWABLE TABLET PO (08:54)
[2022-09-22] MEDS: INSULIN HUMAN ISOPHAN/REGULAR 70/30 (*BKC) 100 UNITS/ML 12 UNITS SUB-Q ×2 (08:55→17:28)
[2022-09-22] MEDS: APIXABAN 2.5 MG TABLET PO ×2 (08:55→20:31)
[2022-09-22] MEDS: FERROUS SULFATE 324 MG TABLET PO (08:55)
[2022-09-22] MEDS: ISOSORBIDE MONONITRATE 30 MG TAB.ER.24H PO (08:56)
[2022-09-22] MEDS: LOSARTAN POTASSIUM 50 MG TABLET PO (08:56)
[2022-09-22] MEDS: carvediloL 3.125 MG TABLET PO ×2 (08:56→20:31)
[2022-09-22] MEDS: FUROSEMIDE 40 MG TABLET PO (08:56)
[2022-09-22] MEDS: POTASSIUM CHLORIDE 10 MEQ TABLET.ER PO (08:57)
[2022-09-22] MEDS: MAGNESIUM OXIDE 400 MG TABLET PO (08:57)
[2022-09-22] MEDS: SPIRONOLACTONE 25 MG TABLET PO (08:57)
--- NOTE | 2022-09-22 10:56 | PCOTNOTE ---
Attempted to see patient this am, however patient declined at this time stating she just got back to bed after having a terrible bowel movement.
--- NOTE | 2022-09-22 11:00 | PCPTNOTE ---
Patient refused treatment today. Patient states she has not gotten any rest today and is frequently going to the bathroom. Encouraged participation to transfer out of bed and ambulate. Patient continued to refuse.
[2022-09-22 12:05] LABS: Glucose Point of Care 248 mg/dl (65-105)
[2022-09-22] MEDS: INSULIN ASPART (*BKC) 100 UNITS/ML SUB-Q (12:40)
--- NOTE | 2022-09-22 13:39 | PCNFU ---
Nutrition Follow-Up Complete: Severe malnutrition related to loss of appetite as evidenced by 14% weight loss/2 months; poor appetite 75% needs >1 month; muscle wasting and fat loss Goal:Improve intake to at least 50% meals and supplements, Pt is meeting goal, continue with same goal Pt current nutrition is Pureed, level 4, Ensure clear BID. Nutrition recommendation: Continue with current plan of care. Last recorded weight is 51.1 kg - stable at this time. Bowel Motility: +BM 09/21 Labs Reviewed: Hgb:10.7, HCT:34.3, Alb:3.1, NA:129, BUN:18, Cr:0.6, Glu:248 Meds Noted: zofran, eliquis, lasix, KCL Skin: WNL Additional Notes: pt continues on a pureed diet, level 4 with much improved intake at 75-100%. Ensure clear BID in place. Agree with diet order. Monitoring intakes, diet tolerance, chewing, weights, etc Follow up in 7 days
[2022-09-22 17:18] LABS: Glucose Point of Care 163 mg/dl (65-105)
--- NOTE | 2022-09-22 17:24 | PM.IMPN ---
Progress Note: A&P Assessment and Plan (1) Influenza A: Code(s): J10.1 - Influenza due to other identified influenza virus with other respiratory manifestations Status: Acute Assessment and Plan: Influenza A positive on admission. CXR showing cardiomegaly but no infiltrates. Started on Tamiflu. No fevers and WBC normal. Repeat CXR showing diffuse bilateral infiltrates with peribronchial thickening. Suspect likely viral PNA. She was on Lasix daily which was resumed. She seems comfortable with just a few rhonchi. She completed Tamiflu. Continue supportive care. Awaiting placement (2) Atypical chest pain: Code(s): R07.89 - Other chest pain Status: Acute Assessment and Plan: Elevated troponin to 0.057 but flat. EKG shows paced rhythm. Chest pain is atypical and felt related to coughing. Elevated trop related to influenza. Cardiology consulted and appreciate their input. Continue to monitor. Continue ASA and Coreg; continue to hold statin. (3) Elevated troponin: Code(s): R77.8 - Other specified abnormalities of plasma proteins Status: Acute Assessment and Plan: As above. (4) Acute hypokalemia: Code(s): E87.6 - Hypokalemia Status: Acute Assessment and Plan: Potassium 2.8 on admission. This was replaced. Mag also low and was replaced. Continue to monitor and replace as needed. (5) Physical deconditioning: Code(s): R53.81 - Other malaise Status: Acute Assessment and Plan: Continue PT/OT. Plan for SNF at discharge. (6) Hypertension: Code(s): I10 - Essential (primary) hypertension Status: Acute Assessment and Plan: Patient's blood pressure was reviewed on 09/20 Blood pressure better controlled. Will continue current medications. (7) Paroxysmal atrial flutter: Code(s): I48.92 - Unspecified atrial flutter Status: Chronic Assessment and Plan: HR stable. Paced rhythm by EKG. Continue Coreg for rate control and Eliquis for stroke prophylaxis. (8) Diabetes mellitus: Code(s): E11.9 - Type 2 diabetes mellitus without complications Status: Acute Assessment and Plan: A1c 7.0. The patient's blood glucose was reviewed on 09/20 Glucose remains elevated at times but overall stable. Continue AccuCheks covering with sliding scale. Hypoglycemia protocol available as needed. Home meds resumed. Dietary has seen patient and has added appropriate supplements. (9) Elevated LFTs: Code(s): R79.89 - Other specified abnormal findings of blood chemistry Status: Acute Assessment and Plan: AST/ALT trending down now. RUQ normal. [place] related to viral illness. Continue to hold statin. Resume statin at discharge. Follow (10) Fecal incontinence: Code(s): R15.9 - Full incontinence of feces Status: Acute Assessment and Plan: Check MRI, rule out cauda equina syndrome Plan DVT prophylaxis with Eliquis GI prophylaxis not indicated Code status full code Subjective Date/time seen: 09/22/22 17:24 Interval history: No overnight events noted. No chest pain or shortness of breath. No nausea, vomiting or diarrhea. No fevers or chills. Patient is complaining of lower extremity weakness, fecal and urinary incontinence and some numbness and paresthesias on her buttocks. She states it was intermittent over the last few months, progressively worsening today. Review of Systems Review of Systems: 12 point review of systems was assessed and was negative except as noted in the HPI Exam Narrative: General: No acute distress, alert and oriented per baseline HEENT: Atraumatic, normocephalic, mucous membranes moist CV: Regular rate and rhythm, S1, S2 Lungs: Clear to auscultation bilaterally, no rales or crackles noted, no wheezes, good air entry Abdomen: Soft, nontender, nondistended Extremities: Normal to inspection Skin: No rashe
--- NOTE | 2022-09-22 17:27 | PM.IMPN ---
Progress Note: A&P Assessment and Plan (1) Influenza A: Code(s): J10.1 - Influenza due to other identified influenza virus with other respiratory manifestations Status: Acute Assessment and Plan: Influenza A positive on admission. CXR showing cardiomegaly but no infiltrates. Started on Tamiflu. No fevers and WBC normal. Repeat CXR showing diffuse bilateral infiltrates with peribronchial thickening. Suspect likely viral PNA. She was on Lasix daily which was resumed. She seems comfortable with just a few rhonchi. She completed Tamiflu. Continue supportive care. Awaiting placement (2) Atypical chest pain: Code(s): R07.89 - Other chest pain Status: Acute Assessment and Plan: Elevated troponin to 0.057 but flat. EKG shows paced rhythm. Chest pain is atypical and felt related to coughing. Elevated trop related to influenza. Cardiology consulted and appreciate their input. Continue to monitor. Continue ASA and Coreg; continue to hold statin. (3) Elevated troponin: Code(s): R77.8 - Other specified abnormalities of plasma proteins Status: Acute Assessment and Plan: As above. (4) Acute hypokalemia: Code(s): E87.6 - Hypokalemia Status: Acute Assessment and Plan: Potassium 2.8 on admission. This was replaced. Mag also low and was replaced. Continue to monitor and replace as needed. (5) Physical deconditioning: Code(s): R53.81 - Other malaise Status: Acute Assessment and Plan: Continue PT/OT. Plan for SNF at discharge. (6) Hypertension: Code(s): I10 - Essential (primary) hypertension Status: Acute Assessment and Plan: Patient's blood pressure was reviewed on 09/20 Blood pressure better controlled. Will continue current medications. (7) Paroxysmal atrial flutter: Code(s): I48.92 - Unspecified atrial flutter Status: Chronic Assessment and Plan: HR stable. Paced rhythm by EKG. Continue Coreg for rate control and Eliquis for stroke prophylaxis. (8) Diabetes mellitus: Code(s): E11.9 - Type 2 diabetes mellitus without complications Status: Acute Assessment and Plan: A1c 7.0. The patient's blood glucose was reviewed on 09/20 Glucose remains elevated at times but overall stable. Continue AccuCheks covering with sliding scale. Hypoglycemia protocol available as needed. Home meds resumed. Dietary has seen patient and has added appropriate supplements. (9) Elevated LFTs: Code(s): R79.89 - Other specified abnormal findings of blood chemistry Status: Acute Assessment and Plan: AST/ALT trending down now. RUQ normal. [place] related to viral illness. Continue to hold statin. Resume statin at discharge. Follow Subjective Date/time seen: 09/21/22 Interval history: No overnight events noted. No chest pain or shortness of breath. No nausea, vomiting or diarrhea. No fevers or chills. Review of Systems Review of Systems: 12 point review of systems was assessed and was negative except as noted in the HPI Exam Narrative: General: No acute distress, alert and oriented per baseline HEENT: Atraumatic, normocephalic, mucous membranes moist CV: Regular rate and rhythm, S1, S2 Lungs: Clear to auscultation bilaterally, no rales or crackles noted, no wheezes, good air entry Abdomen: Soft, nontender, nondistended Extremities: Normal to inspection Skin: No rashes noted, no lesions or wounds seen Psych: Euthymic, normal affect Objective Data Vital Signs Vital Signs: Vital Signs - 24 hr 09/21/22 20:52 09/21/22 20:59 09/21/22 21:45 Temperature Pulse Rate 81 80 Respiratory Rate 20 Blood Pressure Pulse Oximetry Oxygen Delivery Room Air 09/21/22 22:00 09/21/22 22:00 09/22/22 02:00 Temperature 97.6 F Pulse Rate 85 81 79 Respiratory Rate 20 17 18 Blood Pressure 160/85 H Pulse Oximetry 99 Oxygen Deli
[2022-09-22] MEDS: DICYCLOMINE HCL 10 MG CAPSULE PO (17:33)
[2022-09-22] MEDS: HYDROcodone/acetaminophen (*CRX) 5-325 MG TABLET 1 TAB PO (17:33)
[2022-09-22] MEDS: MELATONIN 3 MG TABLET PO (20:31)
[2022-09-22] MEDS: TEMAZEPAM (*CRX) 15 MG CAPSULE PO (20:34)
[2022-09-22] MEDS: ACETAMINOPHEN 325 MG TABLET 650 MG PO (20:49)
[2022-09-22 21:33] LABS: Glucose Point of Care 205 mg/dl (65-105)
[2022-09-23] VITALS (15 sets, daily range): BP systolic 123–136; BP diastolic 56–63; PULSE 61–88; RESP 12–18; TEMP 36.4–36.8; O2SAT 95–100
--- NOTE | 2022-09-23 05:17 | PC.NURSE ---
Pt has slept majority of the shift. Pt has had no problems overnight. Pt participated and contributed in plan of care. Pt has no complaints and expresses no needs at this time. Will continue to monitor pt.
[2022-09-23] MEDS: LEVOTHYROXINE SODIUM 112 MCG TABLET PO (06:24)
[2022-09-23 08:13] LABS: Glucose Point of Care 94 mg/dl (65-105)
[2022-09-23] MEDS: INSULIN HUMAN ISOPHAN/REGULAR 70/30 (*BKC) 100 UNITS/ML 10 UNITS SUB-Q (09:02)
[2022-09-23] MEDS: POTASSIUM CHLORIDE 10 MEQ TABLET.ER PO (09:03)
[2022-09-23] MEDS: FERROUS SULFATE 324 MG TABLET PO (09:03)
[2022-09-23] MEDS: SPIRONOLACTONE 25 MG TABLET PO (09:03)
[2022-09-23] MEDS: APIXABAN 2.5 MG TABLET PO (09:03)
[2022-09-23] MEDS: MAGNESIUM OXIDE 400 MG TABLET PO (09:03)
[2022-09-23] MEDS: ASPIRIN 81 MG CHEWABLE TABLET PO (09:03)
[2022-09-23] MEDS: LOSARTAN POTASSIUM 50 MG TABLET PO (09:03)
[2022-09-23] MEDS: carvediloL 3.125 MG TABLET PO ×2 (09:03→21:11)
[2022-09-23] MEDS: ISOSORBIDE MONONITRATE 30 MG TAB.ER.24H PO (09:03)
[2022-09-23] MEDS: FUROSEMIDE 40 MG TABLET PO (09:03)
[2022-09-23] MEDS: INSULIN ASPART (*BKC) 100 UNITS/ML SUB-Q (12:26)
[2022-09-23 12:53] LABS: Glucose Point of Care 208 mg/dl (65-105)
[2022-09-23 15:54] LABS: Mean Platelet Volume 10.1 fl (7.4-10.4); Platelet Count Result 334 k/mm3 (150-375)
[2022-09-23 16:05] LABS: INR 1.2; Prothrombin Time 14.9 Seconds (11.1-14.7)
[2022-09-23 16:07] LABS: Partial Thromboplastin Time 27.4 SECONDS (22.3-36.8)
--- NOTE | 2022-09-23 16:20 | PM.IMPN ---
Progress Note: A&P Assessment and Plan (1) Fecal incontinence: Code(s): R15.9 - Full incontinence of feces Status: Acute Assessment and Plan: Check CT myelogram, rule out cauda equina syndrome (2) Atypical chest pain: Code(s): R07.89 - Other chest pain Status: Acute Assessment and Plan: non cardiac, resolved (3) Influenza A: Code(s): J10.1 - Influenza due to other identified influenza virus with other respiratory manifestations Status: Acute Assessment and Plan: stable, completed 5 day course tamiflu (4) Elevated troponin: Code(s): R77.8 - Other specified abnormalities of plasma proteins Status: Acute Assessment and Plan: As above. (5) Acute hypokalemia: Code(s): E87.6 - Hypokalemia Status: Acute Assessment and Plan: resolved, monitor (6) Physical deconditioning: Code(s): R53.81 - Other malaise Status: Acute Assessment and Plan: Continue PT/OT. Plan for SNF at discharge. (7) Hypertension: Code(s): I10 - Essential (primary) hypertension Status: Acute Assessment and Plan: Patient's blood pressure was reviewed on 09/23 Blood pressure better controlled. Will continue current medications. (8) Paroxysmal atrial flutter: Code(s): I48.92 - Unspecified atrial flutter Status: Chronic Assessment and Plan: HR stable. Paced rhythm by EKG. Continue Coreg for rate control, eliquis held for CT myelogram (9) Diabetes mellitus: Code(s): E11.9 - Type 2 diabetes mellitus without complications Status: Acute Assessment and Plan: A1c 7.0. The patient's blood glucose was reviewed on 09/20 Glucose remains elevated at times but overall stable. Continue AccuCheks covering with sliding scale. Hypoglycemia protocol available as needed. Home meds resumed. Dietary has seen patient and has added appropriate supplements. (10) Elevated LFTs: Code(s): R79.89 - Other specified abnormal findings of blood chemistry Status: Acute Assessment and Plan: resolving Plan DVT prophylaxis with SCDs GI prophylaxis not indicated Code status full code Subjective Date/time seen: 09/23/22 16:21 Interval history: No overnight events noted. No chest pain or shortness of breath. No nausea, vomiting or diarrhea. No fevers or chills. She is eager to get the CT lumbar spine with contrast completed so she can find out of she is a candidate to have her spinal cord decompression by Neurosurgery. Review of Systems Review of Systems: 12 point review of systems was assessed and was negative except as noted in the HPI Exam Narrative: General: No acute distress, alert and oriented per baseline HEENT: Atraumatic, normocephalic, mucous membranes moist CV: Regular rate and rhythm, S1, S2 Lungs: Clear to auscultation bilaterally, no rales or crackles noted, no wheezes, good air entry Abdomen: Soft, nontender, nondistended Extremities: Normal to inspection Skin: No rashes noted, no lesions or wounds seen Psych: Euthymic, normal affect Objective Data Vital Signs Vital Signs: Vital Signs - 24 hr 09/22/22 19:57 09/22/22 19:57 09/22/22 20:11 Temperature Pulse Rate 88 88 85 Respiratory Rate 18 18 Blood Pressure Pulse Oximetry 95 Oxygen Delivery Room Air 09/22/22 20:31 09/22/22 20:39 09/22/22 21:17 Temperature 97.9 F Pulse Rate 80 93 Respiratory Rate 14 Blood Pressure 126/55 L Pulse Oximetry 98 Oxygen Delivery Room Air 09/23/22 01:50 09/23/22 02:00 09/23/22 05:19 Temperature 97.5 F L Pulse Rate 67 80 71 Respiratory Rate 18 18 12 Blood Pressure 136/63 Pulse Oximetry 100 Oxygen Delivery 09/23/22 09:03 09/23/22 10:00 09/23/22 10:17 Temperature Pulse Rate 64 75 74 Respiratory Rate 16 16 Blood Pressure Pulse Oximetry Oxygen Delivery 09/23/22 08:
[2022-09-23 17:03] LABS: Glucose Point of Care 162 mg/dl (65-105)
[2022-09-23] MEDS: INSULIN HUMAN ISOPHAN/REGULAR 70/30 (*BKC) 100 UNITS/ML 12 UNITS SUB-Q (17:13)
[2022-09-23] MEDS: TEMAZEPAM (*CRX) 15 MG CAPSULE PO (21:11)
[2022-09-23] MEDS: MELATONIN 3 MG TABLET PO (21:11)
[2022-09-23] MEDS: ACETAMINOPHEN 325 MG TABLET 650 MG PO (21:14)
[2022-09-23 22:17] LABS: Glucose Point of Care 170 mg/dl (65-105)
[2022-09-24] VITALS (10 sets, daily range): BP systolic 112–149; BP diastolic 60–75; PULSE 60–81; RESP 12–18; TEMP 36.3–37.1; O2SAT 98–100
[2022-09-24] MEDS: LEVOTHYROXINE SODIUM 112 MCG TABLET PO (05:15)
[2022-09-24 07:08] LABS: Basophils Percent Auto 0.7 % (0.2-1.2); Hemoglobin 10.6 g/dL (12.0-15.0); Immature Granulocyte Absolute 0.05 K/mm3 (0.00-0.031); Immature Granulocyte Percent A 0.8 % (0-0.5); Lymphocytes Absolute Auto 1.21 K/mm3 (0.9-3.2); Mean Corpuscular HGB Conc 31.2 g/dl (32-36); Mean Corpuscular Hemoglobin 30.3 pg (26-34); Mean Corpuscular Volume 97.1 fl (80-100); Mean Platelet Volume 10.4 fl (7.4-10.4); Monocytes Absolute Auto 0.6 K/mm3 (0.1-0.6); Monocytes Percent Auto 9.2 % (2.6-8.5); Neutrophils Absolute Auto 4.2 K/mm3 (1.3-6.7); Neutrophils Percent Auto 69.3 % (45.5-73.1); Platelet Count Result 305 k/mm3 (150-375); Red Cell Distribution Width 13.9 % (11.5-14.5); White Blood Count 6.1 K/mm3 (4.5-10.0)
[2022-09-24 07:20] LABS: Alanine Aminotransferase 57 U/L (6-35); Albumin Level 3.5 g/dL (3.5-5.1); Alkaline Phosphatase 86 U/L (38-126); Anion Gap 3 mmol/L (8-16); Aspartate Amino Transferase 44 U/L (14-36); Bilirubin,Total 0.3 mg/dL (0.2-1.3); Blood Urea Nitrogen 24 mg/dL (7-17); Calcium 8.4 mg/dL (8.4-10.2); Carbon Dioxide 34 mmol/L (22-30); Chloride 96 mmol/L (98-107); Estimated CRCL calculation 36 ml/min; Estimated Glomerular Filt Rate > 60; Glucose 103 mg/dL (65-110); Potassium 4.3 mmol/L (3.4-5.0); Sodium 133 mmol/L (137-145)
--- NOTE | 2022-09-24 08:00 | PM.IMPN ---
Progress Note: A&P Assessment and Plan (1) Fecal incontinence: Code(s): R15.9 - Full incontinence of feces Status: Acute Assessment and Plan: Check CT myelogram, rule out cauda equina syndrome (2) Atypical chest pain: Code(s): R07.89 - Other chest pain Status: Acute Assessment and Plan: non cardiac, resolved (3) Influenza A: Code(s): J10.1 - Influenza due to other identified influenza virus with other respiratory manifestations Status: Acute Assessment and Plan: stable, completed 5 day course tamiflu (4) Elevated troponin: Code(s): R77.8 - Other specified abnormalities of plasma proteins Status: Acute Assessment and Plan: As above. (5) Acute hypokalemia: Code(s): E87.6 - Hypokalemia Status: Acute Assessment and Plan: resolved, monitor (6) Physical deconditioning: Code(s): R53.81 - Other malaise Status: Acute Assessment and Plan: Continue PT/OT. Plan for SNF at discharge. (7) Hypertension: Code(s): I10 - Essential (primary) hypertension Status: Acute Assessment and Plan: Patient's blood pressure was reviewed on 09/23 Blood pressure better controlled. Will continue current medications. (8) Paroxysmal atrial flutter: Code(s): I48.92 - Unspecified atrial flutter Status: Chronic Assessment and Plan: HR stable. Paced rhythm by EKG. Continue Coreg for rate control, eliquis held for CT myelogram (9) Diabetes mellitus: Code(s): E11.9 - Type 2 diabetes mellitus without complications Status: Acute Assessment and Plan: A1c 7.0. The patient's blood glucose was reviewed on 09/20 Glucose remains elevated at times but overall stable. Continue AccuCheks covering with sliding scale. Hypoglycemia protocol available as needed. Home meds resumed. Dietary has seen patient and has added appropriate supplements. (10) Elevated LFTs: Code(s): R79.89 - Other specified abnormal findings of blood chemistry Status: Acute Assessment and Plan: fluctuating, check hepatitis panel, monitor Plan DVT prophylaxis with SCDs GI prophylaxis not indicated Code status full code Subjective Date/time seen: 09/24/22 08:00 Interval history: No overnight events noted. No chest pain or shortness of breath. No nausea, vomiting or diarrhea. No fevers or chills. She is eager to get the CT myelogram completed so she can find out of she is a candidate to have her spinal cord decompression by Neurosurgery. Review of Systems Review of Systems: 12 point review of systems was assessed and was negative except as noted in the HPI Exam Narrative: General: No acute distress, alert and oriented per baseline HEENT: Atraumatic, normocephalic, mucous membranes moist CV: Regular rate and rhythm, S1, S2 Lungs: Clear to auscultation bilaterally, no rales or crackles noted, no wheezes, good air entry Abdomen: Soft, nontender, nondistended Extremities: Normal to inspection Skin: No rashes noted, no lesions or wounds seen Psych: Euthymic, normal affect Objective Data Vital Signs Vital Signs: Vital Signs - 24 hr 09/23/22 09:03 09/23/22 10:00 09/23/22 10:17 Temperature Pulse Rate 64 75 74 Respiratory Rate 16 16 Blood Pressure Pulse Oximetry Oxygen Delivery Fraction of Inspired Oxygen 09/23/22 14:15 09/23/22 14:21 09/23/22 14:00 Temperature 97.5 F L Pulse Rate 83 75 86 Respiratory Rate 18 18 16 Blood Pressure 123/62 Pulse Oximetry 98 Oxygen Delivery Fraction of Inspired Oxygen 09/23/22 15:12 09/23/22 20:47 09/23/22 20:47 Temperature Pulse Rate 75 62 Respiratory Rate 18 18 Blood Pressure Pulse Oximetry 95 96 Oxygen Delivery Room Air Room Air Fraction of Inspired Oxygen 09/23/22 21:11 09/23/22 21:49 09/23/22 20:00 Temperature 98.2 F Pulse Rate 88
[2022-09-24 08:23] LABS: Glucose Point of Care 126 mg/dl (65-105)
[2022-09-24] MEDS: ISOSORBIDE MONONITRATE 30 MG TAB.ER.24H PO (09:58)
[2022-09-24] MEDS: MAGNESIUM OXIDE 400 MG TABLET PO (09:58)
[2022-09-24] MEDS: SPIRONOLACTONE 25 MG TABLET PO (09:58)
[2022-09-24] MEDS: LOSARTAN POTASSIUM 50 MG TABLET PO (09:58)
[2022-09-24] MEDS: POTASSIUM CHLORIDE 10 MEQ TABLET.ER PO (09:58)
[2022-09-24] MEDS: carvediloL 3.125 MG TABLET PO ×2 (09:59→20:21)
[2022-09-24] MEDS: FERROUS SULFATE 324 MG TABLET PO (09:59)
[2022-09-24] MEDS: FUROSEMIDE 40 MG TABLET PO (09:59)
[2022-09-24] MEDS: INSULIN HUMAN ISOPHAN/REGULAR 70/30 (*BKC) 100 UNITS/ML 12 UNITS SUB-Q ×2 (09:59→17:49)
[2022-09-24] MEDS: ASPIRIN 81 MG CHEWABLE TABLET PO (10:00)
--- NOTE | 2022-09-24 11:24 | PCOTNOTE ---
Attempted to see pt for occupational therapy treatment. Pt expresses increase fatigue and wanting to nap, therefore, declined to participate in therapy session today. Pt was educated on the importance of continue therapy participation for increase independence. Will continue per poc duration/frequency tomorrow.
[2022-09-24 12:00] LABS: Glucose Point of Care 243 mg/dl (65-105)
[2022-09-24] MEDS: INSULIN ASPART (*BKC) 100 UNITS/ML SUB-Q ×2 (13:55→14:09)
[2022-09-24] MEDS: HYDROcodone/acetaminophen (*CRX) 5-325 MG TABLET 1 TAB PO (14:08)
[2022-09-24 17:04] LABS: Hepatitis B Surface Antigen Negative (Negative)
[2022-09-24 17:10] LABS: HAV RESULT Negative (Negative); Hepatitis B Core IgM Result Negative (Negative)
[2022-09-24 17:14] LABS: Glucose Point of Care 176 mg/dl (65-105)
[2022-09-24 17:22] LABS: Hepatitis C Virus Antibody Negative (Negative)
[2022-09-24] MEDS: TEMAZEPAM (*CRX) 15 MG CAPSULE PO (20:20)
[2022-09-24] MEDS: ACETAMINOPHEN 325 MG TABLET 650 MG PO (20:20)
[2022-09-24] MEDS: MELATONIN 3 MG TABLET PO (20:21)
[2022-09-24 21:39] LABS: Glucose Point of Care 174 mg/dl (65-105)
[2022-09-25] VITALS (11 sets, daily range): BP systolic 111–142; BP diastolic 56–70; PULSE 71–83; RESP 14–16; TEMP 36.2–36.6; O2SAT 96–99
[2022-09-25] MEDS: LEVOTHYROXINE SODIUM 112 MCG TABLET PO (05:58)
[2022-09-25 06:53] LABS: Basophils Percent Auto 0.5 % (0.2-1.2); Hematocrit 33.1 % (37.0-47.0); Hemoglobin 10.5 g/dL (12.0-15.0); Immature Granulocyte Absolute 0.05 K/mm3 (0.00-0.031); Immature Granulocyte Percent A 0.8 % (0-0.5); Lymphocytes Percent Auto 15.7 % (18.3-44.2); Mean Corpuscular HGB Conc 31.7 g/dl (32-36); Mean Corpuscular Hemoglobin 30.3 pg (26-34); Mean Corpuscular Volume 95.7 fl (80-100); Mean Platelet Volume 10.5 fl (7.4-10.4); Monocytes Absolute Auto 0.4 K/mm3 (0.1-0.6); Monocytes Percent Auto 6.3 % (2.6-8.5); Neutrophils Absolute Auto 4.9 K/mm3 (1.3-6.7); Neutrophils Percent Auto 76.7 % (45.5-73.1); Platelet Count Result 296 k/mm3 (150-375); Red Blood Count 3.46 M/mm3 (4.2-5.4); Red Cell Distribution Width 13.8 % (11.5-14.5); White Blood Count 6.4 K/mm3 (4.5-10.0)
[2022-09-25 07:00] LABS: Alanine Aminotransferase 55 U/L (6-35); Albumin Level 3.4 g/dL (3.5-5.1); Alkaline Phosphatase 85 U/L (38-126); Anion Gap 1 mmol/L (8-16); Aspartate Amino Transferase 41 U/L (14-36); Bilirubin,Total 0.3 mg/dL (0.2-1.3); Blood Urea Nitrogen 22 mg/dL (7-17); Calcium 8.6 mg/dL (8.4-10.2); Carbon Dioxide 32 mmol/L (22-30); Chloride 97 mmol/L (98-107); Estimated CRCL calculation 41 ml/min; Estimated Glomerular Filt Rate > 60; Glucose 84 mg/dL (65-110); Potassium 4.3 mmol/L (3.4-5.0); Sodium 130 mmol/L (137-145)
[2022-09-25 08:28] LABS: Glucose Point of Care 150 mg/dl (65-105)
[2022-09-25] MEDS: LOSARTAN POTASSIUM 50 MG TABLET PO (08:49)
[2022-09-25] MEDS: ISOSORBIDE MONONITRATE 30 MG TAB.ER.24H PO (08:49)
[2022-09-25] MEDS: carvediloL 3.125 MG TABLET PO ×2 (08:49→21:01)
[2022-09-25] MEDS: POTASSIUM CHLORIDE 10 MEQ TABLET.ER PO (08:50)
[2022-09-25] MEDS: FUROSEMIDE 40 MG TABLET PO (08:51)
[2022-09-25] MEDS: ASPIRIN 81 MG CHEWABLE TABLET PO (08:51)
[2022-09-25] MEDS: SPIRONOLACTONE 25 MG TABLET PO (08:51)
[2022-09-25] MEDS: FERROUS SULFATE 324 MG TABLET PO (08:52)
[2022-09-25] MEDS: MAGNESIUM OXIDE 400 MG TABLET PO (08:54)
[2022-09-25] MEDS: INSULIN HUMAN ISOPHAN/REGULAR 70/30 (*BKC) 100 UNITS/ML 12 UNITS SUB-Q ×2 (08:57→17:18)
[2022-09-25] MEDS: ACETAMINOPHEN 325 MG TABLET 650 MG PO ×2 (09:02→21:04)
[2022-09-25 11:37] LABS: Glucose Point of Care 230 mg/dl (65-105)
[2022-09-25] MEDS: INSULIN ASPART (*BKC) 100 UNITS/ML SUB-Q (12:14)
--- NOTE | 2022-09-25 15:50 | PCRCNOTE ---
Window of time for administration has passed. See next scheduled administration.
[2022-09-25 16:15] LABS: Glucose Point of Care 161 mg/dl (65-105)
--- NOTE | 2022-09-25 17:34 | PM.IMPN ---
Progress Note: A&P Assessment and Plan (1) Fecal incontinence: Code(s): R15.9 - Full incontinence of feces Status: Acute Assessment and Plan: Check CT myelogram, rule out cauda equina syndrome patient refused the first time, will pre treat with ativan this time (2) Atypical chest pain: Code(s): R07.89 - Other chest pain Status: Acute Assessment and Plan: non cardiac, resolved (3) Influenza A: Code(s): J10.1 - Influenza due to other identified influenza virus with other respiratory manifestations Status: Acute Assessment and Plan: stable, completed 5 day course tamiflu (4) Elevated troponin: Code(s): R77.8 - Other specified abnormalities of plasma proteins Status: Acute Assessment and Plan: As above. (5) Acute hypokalemia: Code(s): E87.6 - Hypokalemia Status: Acute Assessment and Plan: resolved, monitor (6) Physical deconditioning: Code(s): R53.81 - Other malaise Status: Acute Assessment and Plan: Continue PT/OT. Plan for SNF at discharge. (7) Hypertension: Code(s): I10 - Essential (primary) hypertension Status: Acute Assessment and Plan: Patient's blood pressure was reviewed on 09/23 Blood pressure better controlled. Will continue current medications. (8) Paroxysmal atrial flutter: Code(s): I48.92 - Unspecified atrial flutter Status: Chronic Assessment and Plan: HR stable. Paced rhythm by EKG. Continue Coreg for rate control, eliquis held for CT myelogram (9) Diabetes mellitus: Code(s): E11.9 - Type 2 diabetes mellitus without complications Status: Acute Assessment and Plan: A1c 7.0. The patient's blood glucose was reviewed on 09/20 Glucose remains elevated at times but overall stable. Continue AccuCheks covering with sliding scale. Hypoglycemia protocol available as needed. Home meds resumed. Dietary has seen patient and has added appropriate supplements. (10) Elevated LFTs: Code(s): R79.89 - Other specified abnormal findings of blood chemistry Status: Acute Assessment and Plan: Stable, hepatitis panel negative Plan DVT prophylaxis with SCDs GI prophylaxis not indicated Code status full code Subjective Date/time seen: 09/25/22 17:34 Interval history: No overnight events noted. No chest pain or shortness of breath. No nausea, vomiting or diarrhea. No fevers or chills. She is eager to get the CT myelogram completed so she can find out of she is a candidate to have her spinal cord decompression by Neurosurgery. Exam Narrative: General: No acute distress, alert and oriented per baseline HEENT: Atraumatic, normocephalic, mucous membranes moist CV: Regular rate and rhythm, S1, S2 Lungs: Clear to auscultation bilaterally, no rales or crackles noted, no wheezes, good air entry Abdomen: Soft, nontender, nondistended Extremities: Normal to inspection Skin: No rashes noted, no lesions or wounds seen Psych: Euthymic, normal affect Objective Data Vital Signs Vital Signs: Vital Signs - 24 hr 09/24/22 20:21 09/24/22 22:00 09/25/22 06:00 Temperature 97.3 F L 97.1 F L Pulse Rate 64 81 83 Respiratory Rate 17 16 Blood Pressure 112/75 111/70 Pulse Oximetry 98 96 Oxygen Delivery 09/25/22 07:33 09/25/22 07:36 09/25/22 07:41 Temperature Pulse Rate 76 76 71 Respiratory Rate 16 16 16 Blood Pressure Pulse Oximetry 98 Oxygen Delivery Room Air 09/25/22 08:49 09/25/22 09:00 09/25/22 13:57 Temperature 97.8 F Pulse Rate 75 75 75 Respiratory Rate 16 Blood Pressure 129/56 L Pulse Oximetry 98 99 Oxygen Delivery Room Air Intake/Output Intake/Output: Intake & Output 09/22/22 09/23/22 09/24/22 09/25/22 23:59 23:59 23:59 23:59 Intake Total 720 1450 1529 120 Output Total 1200 Balance -480 1450 1529 120 Meds/Results M
[2022-09-25] MEDS: MELATONIN 3 MG TABLET PO (21:00)
[2022-09-25] MEDS: TEMAZEPAM (*CRX) 15 MG CAPSULE PO (21:01)
[2022-09-25 22:13] LABS: Glucose Point of Care 173 mg/dl (65-105)
[2022-09-26] VITALS (15 sets, daily range): BP systolic 126–157; BP diastolic 49–82; PULSE 64–83; RESP 10–18; TEMP 35.8–36.3; O2SAT 96–100
[2022-09-26] MEDS: HYDROcodone/acetaminophen (*CRX) 5-325 MG TABLET 1 TAB PO ×3 (01:35→22:16)
[2022-09-26] MEDS: LEVOTHYROXINE SODIUM 112 MCG TABLET PO (06:09)
[2022-09-26 06:54] LABS: Basophils Percent Auto 0.5 % (0.2-1.2); Hematocrit 33.2 % (37.0-47.0); Hemoglobin 10.2 g/dL (12.0-15.0); Immature Granulocyte Absolute 0.03 K/mm3 (0.00-0.031); Immature Granulocyte Percent A 0.5 % (0-0.5); Lymphocytes Absolute Auto 1.24 K/mm3 (0.9-3.2); Lymphocytes Percent Auto 21.6 % (18.3-44.2); Mean Corpuscular HGB Conc 30.7 g/dl (32-36); Mean Corpuscular Hemoglobin 29.7 pg (26-34); Mean Corpuscular Volume 96.8 fl (80-100); Mean Platelet Volume 10.4 fl (7.4-10.4); Monocytes Absolute Auto 0.4 K/mm3 (0.1-0.6); Monocytes Percent Auto 7.2 % (2.6-8.5); Neutrophils Percent Auto 70.2 % (45.5-73.1); Platelet Count Result 290 k/mm3 (150-375); Red Blood Count 3.43 M/mm3 (4.2-5.4); Red Cell Distribution Width 14.3 % (11.5-14.5); White Blood Count 5.7 K/mm3 (4.5-10.0)
[2022-09-26 06:59] LABS: Alanine Aminotransferase 62 U/L (6-35); Albumin Level 3.4 g/dL (3.5-5.1); Alkaline Phosphatase 87 U/L (38-126); Anion Gap 4 mmol/L (8-16); Aspartate Amino Transferase 44 U/L (14-36); Bilirubin,Total 0.3 mg/dL (0.2-1.3); Blood Urea Nitrogen 22 mg/dL (7-17); Calcium 8.5 mg/dL (8.4-10.2); Carbon Dioxide 29 mmol/L (22-30); Chloride 96 mmol/L (98-107); Estimated CRCL calculation 47 ml/min; Estimated Glomerular Filt Rate > 60; Glucose 96 mg/dL (65-110); Potassium 4.6 mmol/L (3.4-5.0); Sodium 129 mmol/L (137-145)
[2022-09-26 08:11] LABS: Glucose Point of Care 109 mg/dl (65-105)
[2022-09-26] MEDS: LORazepam INJ (*CRX) 2 MG/ML VIAL 1 MG IV PUSH (08:49)
[2022-09-26] MEDS: FERROUS SULFATE 324 MG TABLET PO (08:50)
[2022-09-26] MEDS: ISOSORBIDE MONONITRATE 30 MG TAB.ER.24H PO (08:50)
[2022-09-26] MEDS: MAGNESIUM OXIDE 400 MG TABLET PO (08:50)
[2022-09-26] MEDS: SPIRONOLACTONE 25 MG TABLET PO (08:50)
[2022-09-26] MEDS: LOSARTAN POTASSIUM 50 MG TABLET PO (08:50)
[2022-09-26] MEDS: FUROSEMIDE 40 MG TABLET PO (08:51)
[2022-09-26] MEDS: POTASSIUM CHLORIDE 10 MEQ TABLET.ER PO (08:51)
[2022-09-26] MEDS: carvediloL 3.125 MG TABLET PO ×2 (08:51→22:16)
[2022-09-26] MEDS: ASPIRIN 81 MG CHEWABLE TABLET PO (08:51)
[2022-09-26] MEDS: INSULIN HUMAN ISOPHAN/REGULAR 70/30 (*BKC) 100 UNITS/ML 12 UNITS SUB-Q ×2 (08:59→17:58)
--- NOTE | 2022-09-26 09:24 | PCPTNOTE ---
Addendum entered by Alejandro Ghosh, JAVA PROGRAMMER ANALYST 09/26/22 12:03: Returned to see patient for PT treatment. Patient having difficulty staying awake to participate. Patient states I am very tired. PT will attempt later today. Original Note: The patient treatment was not able to be completed at this time due to patient out of room for testing. Will plan to continue treatment per plan of care.
--- NOTE | 2022-09-26 10:29 | PM.IMPN ---
Progress Note: A&P Assessment and Plan (1) Fecal incontinence: Code(s): R15.9 - Full incontinence of feces Status: Acute Assessment and Plan: Suspect central canal stenosis, appreciate neurosurgical consultation, recommendations pending Possible laminectomy? (2) Atypical chest pain: Code(s): R07.89 - Other chest pain Status: Acute Assessment and Plan: non cardiac, resolved (3) Influenza A: Code(s): J10.1 - Influenza due to other identified influenza virus with other respiratory manifestations Status: Acute Assessment and Plan: stable, completed 5 day course tamiflu (4) Elevated troponin: Code(s): R77.8 - Other specified abnormalities of plasma proteins Status: Acute Assessment and Plan: As above. (5) Acute hypokalemia: Code(s): E87.6 - Hypokalemia Status: Acute Assessment and Plan: resolved, monitor (6) Physical deconditioning: Code(s): R53.81 - Other malaise Status: Acute Assessment and Plan: Continue PT/OT. Plan for SNF at discharge. (7) Hypertension: Code(s): I10 - Essential (primary) hypertension Status: Acute Assessment and Plan: Blood pressure controlled Will continue current medications. (8) Paroxysmal atrial flutter: Code(s): I48.92 - Unspecified atrial flutter Status: Chronic Assessment and Plan: HR stable. Paced rhythm by EKG. Continue Coreg for rate control, eliquis held for CT myelogram (9) Diabetes mellitus: Code(s): E11.9 - Type 2 diabetes mellitus without complications Status: Acute Assessment and Plan: A1c 7.0. The patient's blood glucose was reviewed on 09/20 Glucose remains elevated at times but overall stable. Continue AccuCheks covering with sliding scale. Hypoglycemia protocol available as needed. Home meds resumed. Dietary has seen patient and has added appropriate supplements. (10) Elevated LFTs: Code(s): R79.89 - Other specified abnormal findings of blood chemistry Status: Acute Assessment and Plan: Stable, hepatitis panel negative (11) Hyponatremia: Code(s): E87.1 - Hypo-osmolality and hyponatremia Status: Acute Assessment and Plan: Suspect hypovolemic hyponatremia, will give 1 L normal saline bolus and recheck this afternoon Recheck showed that the patient's sodium did improve with IV fluids, will continue overnight and re-evaluate tomorrow morning Plan DVT prophylaxis with SCDs GI prophylaxis not indicated Code status full code Subjective Date/time seen: 09/26/22 10:29 Interval history: No overnight events noted. No chest pain or shortness of breath. No nausea, vomiting or diarrhea. No fevers or chills. Myelogram completed today, patient eager to get procedure by neurosurgery if she qualifies. Review of Systems Review of Systems: 12 point review of systems was assessed and was negative except as noted in the HPI Exam Narrative: General: No acute distress, alert and oriented per baseline HEENT: Atraumatic, normocephalic, mucous membranes moist CV: Regular rate and rhythm, S1, S2 Lungs: Clear to auscultation bilaterally, no rales or crackles noted, no wheezes, good air entry Abdomen: Soft, nontender, nondistended Extremities: Normal to inspection Skin: No rashes noted, no lesions or wounds seen Psych: Euthymic, normal affect Objective Data Vital Signs Vital Signs: Vital Signs - 24 hr 09/25/22 13:57 09/25/22 20:27 09/25/22 20:28 Temperature 97.8 F Pulse Rate 75 74 Respiratory Rate 16 16 Blood Pressure 129/56 L Pulse Oximetry 99 99 Oxygen Delivery Room Air 09/25/22 20:34 09/25/22 22:00 09/26/22 02:14 Temperature 97.4 F L Pulse Rate 72 74 74 Respiratory Rate 16 14 16 Blood Pressure 142/59 H Pulse Oximetry 99 Oxygen Delivery 09/26/22 02:23 09/26/22 06:00 09/26/22 07:5
[2022-09-26] MEDS: SODIUM CHLORIDE 0.9% IV 1,000 ML 999 ML IV CONT (11:29)
[2022-09-26 12:07] LABS: Glucose Point of Care 131 mg/dl (65-105)
[2022-09-26 13:33] LABS: Potassium 4.4 mmol/L (3.4-5.0)
[2022-09-26 13:36] LABS: Anion Gap 5 mmol/L (8-16); Blood Urea Nitrogen 20 mg/dL (7-17); Calcium 8.3 mg/dL (8.4-10.2); Carbon Dioxide 27 mmol/L (22-30); Chloride 99 mmol/L (98-107); Estimated CRCL calculation 43 ml/min; Estimated Glomerular Filt Rate > 60; Glucose 97 mg/dL (65-110); Sodium 131 mmol/L (137-145)
--- NOTE | 2022-09-26 15:28 | PCPTNOTE ---
PT attempted to see patient this afternoon but patient refused stating she is too tired to participate. PT will continue to follow per plan of care.
--- NOTE | 2022-09-26 15:31 | WPDNEUROSGCN ---
Assessment and Plan Assessment and plan (1) Lumbar stenosis: Code(s): M48.061 - Spinal stenosis, lumbar region without neurogenic claudication Status: Acute Plan Ms. Thorpe is an 87-year-old female with multiple medical comorbidities who was admitted with influenza and UTI. During admission, there was concern for lumbar stenosis causing urinary incontinence and saddle anesthesia. On my discussion with her today, she reports history of back pain without significant radiculopathy, paresthesias, or focal weakness. She denies any saddle anesthesia. She has been evaluated in the hospital several times in the last month for UTIs. On my exam, she has good strength and normal sensation in her lower extremities. CT myelogram shows moderate central lumbar stenosis at L4-5; however, I do not think the amount of stenosis is significant enough to require surgical intervention at this time, particularly since she has good strength and sensation in her legs. I recommend continued evaluations with physical therapy for her back pain and to improve her mobility. I am happy to follow her on an outpatient basis if she would like. [facility] Past Medical History Medical History (Updated 09/26/22 @ 15:55 by Charlene Henderson MD) Abdominal pain Cardiomegaly Chemical conjunctivitis of both eyes Chronic anemia Chronic anticoagulation 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trial flutter. CKD (chronic kidney disease) stage 3, GFR 30-59 ml/min Closed head injury Congestive heart failure Contusion of right shoulder Coronary artery disease Diabetes type 2, controlled Dysphagia Elevated antinuclear antibody (ARAMIS) level Elevated liver enzymes Fall (~07/22/19) History of colon polyps History of esophageal dilatation History of pacemaker History of TIA (transient ischemic attack) and stroke Hyperlipidemia associated with type 2 diabetes mellitus Hypertension Hypertension associated with stage 3 chronic kidney disease due to type 2 diabetes mellitus Hyponatremia Hypothyroidism Lumbar stenosis Paroxysmal atrial flutter Peripheral sensory neuropathy due to type 2 diabetes mellitus Rectal bleeding Schatzki's ring of distal esophagus Trigger finger, right middle finger Surgical History Surgical History History of appendectomy History of arthroplasty of right knee History of cholecystectomy History of colonoscopy with polypectomy Last colonoscopy in 01/2020 with descending colon polyp biopsied and showing ulcerated tubulovillous adenoma with high-grade dysplasia. History of mitral valve repair 4 vessel CABG and Mitral Valve Repair at [facility] in 1995. History of phacoemulsification of cataract of both eyes with intraocular lens implantation History of total abdominal hysterectomy and bilateral salpingo-oophorectomy S/P CABG (coronary artery bypass graft) 4 vessel CABG and Mitral Valve Repair at [facility] in 1995. Family History Family History Mother Carcinoma of colon Hypertension Father Family history of coronary artery disease Heart disease Hypertension Father Family history of coronary artery disease Social History Social History Social History: the patient lives with her who is the durable power estate planning attorney for healthcare. She has 1 son. 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 She is a former smoker. She stated she does not use alcohol marijuana or illicit drugs. Code status full code Smoking status: Never smoker Second hand tobacco smoke exposure: No Alcohol intake: never Substance use: never Substance use type: does not use Last use: years ago; Lack of Transportation: No Lack of Food: Never True Current Housing: I Have Housing Concerned About Future Housing: No Difficulty Paying Gas/Electric Bills: No Di
[2022-09-26 16:57] LABS: Glucose Point of Care 145 mg/dl (65-105)
[2022-09-26] MEDS: SODIUM CHLORIDE 0.9% IV 1,000 ML 75 ML IV CONT (17:58)
[2022-09-26] MEDS: ONDANSETRON INJ 4 MG/2 ML VIAL IV PUSH (18:11)
[2022-09-26] MEDS: MELATONIN 3 MG TABLET PO (22:16)
[2022-09-26] MEDS: TEMAZEPAM (*CRX) 15 MG CAPSULE PO (22:17)
[2022-09-26 22:27] LABS: Glucose Point of Care 113 mg/dl (65-105)
[2022-09-27 03:10] VITALS: PULSE 72; RESP 16
[2022-09-27 03:20] VITALS: PULSE 70; RESP 16
[2022-09-27] MEDS: HYDROcodone/acetaminophen (*CRX) 5-325 MG TABLET 1 TAB PO (05:36)
[2022-09-27] MEDS: SODIUM CHLORIDE 0.9% IV 1,000 ML 75 ML IV CONT (05:36)
[2022-09-27] MEDS: LEVOTHYROXINE SODIUM 112 MCG TABLET PO (05:37)
[2022-09-27 06:00] VITALS: PULSE 63; RESP 14; TEMP 36.1; O2SAT 97
[2022-09-27 06:16] LABS: Basophils Percent Auto 0.4 % (0.2-1.2); Hematocrit 30.7 % (37.0-47.0); Hemoglobin 9.3 g/dL (12.0-15.0); Immature Granulocyte Absolute 0.04 K/mm3 (0.00-0.031); Immature Granulocyte Percent A 0.5 % (0-0.5); Lymphocytes Absolute Auto 1.23 K/mm3 (0.9-3.2); Lymphocytes Percent Auto 16.4 % (18.3-44.2); Mean Corpuscular HGB Conc 30.3 g/dl (32-36); Mean Corpuscular Hemoglobin 30.3 pg (26-34); Mean Platelet Volume 10.2 fl (7.4-10.4); Monocytes Absolute Auto 0.5 K/mm3 (0.1-0.6); Monocytes Percent Auto 6.5 % (2.6-8.5); Neutrophils Absolute Auto 5.7 K/mm3 (1.3-6.7); Neutrophils Percent Auto 76.2 % (45.5-73.1); Platelet Count Result 251 k/mm3 (150-375); Red Blood Count 3.07 M/mm3 (4.2-5.4); Red Cell Distribution Width 14.1 % (11.5-14.5); White Blood Count 7.5 K/mm3 (4.5-10.0)
[2022-09-27 06:33] LABS: Alanine Aminotransferase 47 U/L (6-35); Albumin Level 3.1 g/dL (3.5-5.1); Alkaline Phosphatase 77 U/L (38-126); Anion Gap 5 mmol/L (8-16); Aspartate Amino Transferase 31 U/L (14-36); Bilirubin,Total 0.3 mg/dL (0.2-1.3); Blood Urea Nitrogen 24 mg/dL (7-17); Calcium 8.4 mg/dL (8.4-10.2); Carbon Dioxide 25 mmol/L (22-30); Chloride 101 mmol/L (98-107); Estimated CRCL calculation 37 ml/min; Estimated Glomerular Filt Rate > 60; Glucose 82 mg/dL (65-110); Potassium 4.2 mmol/L (3.4-5.0); Sodium 131 mmol/L (137-145)
--- NOTE | 2022-09-27 06:42 | PC.NURSE ---
Patient rested throughout night. Voicing no complaints. Condition stable throughout night. No episodes of nausea or pain. IVFs continue to infuse without any difficulty. Patient pleasant and cooperative throughout night.
[2022-09-27 08:04] VITALS: PULSE 62; RESP 15; O2SAT 98
[2022-09-27 08:09] LABS: Glucose Point of Care 92 mg/dl (65-105)
[2022-09-27] MEDS: FUROSEMIDE 40 MG TABLET PO (09:03)
[2022-09-27] MEDS: ISOSORBIDE MONONITRATE 30 MG TAB.ER.24H PO (09:04)
[2022-09-27] MEDS: POTASSIUM CHLORIDE 10 MEQ TABLET.ER PO (09:04)
[2022-09-27] MEDS: LOSARTAN POTASSIUM 50 MG TABLET PO (09:04)
[2022-09-27] MEDS: SPIRONOLACTONE 25 MG TABLET PO (09:04)
[2022-09-27] MEDS: FERROUS SULFATE 324 MG TABLET PO (09:04)
[2022-09-27] MEDS: MAGNESIUM OXIDE 400 MG TABLET PO (09:04)
--- NOTE | 2022-09-27 09:19 | PM.DS ---
DS: Admitting Diagnosis Discharge Date 09/27/22 Admitting Diagnosis weakness DS: Discharge Diagnosis Discharge Diagnosis (1) Fecal incontinence: Code(s): R15.9 - Full incontinence of feces Status: Acute Assessment and Plan: neurosurgery not planning intervention at this time, f/u outpatient (2) Atypical chest pain: Code(s): R07.89 - Other chest pain Status: Acute Assessment and Plan: non cardiac, resolved (3) Influenza A: Code(s): J10.1 - Influenza due to other identified influenza virus with other respiratory manifestations Status: Acute Assessment and Plan: stable, completed 5 day course tamiflu (4) Elevated troponin: Code(s): R77.8 - Other specified abnormalities of plasma proteins Status: Acute Assessment and Plan: As above. (5) Acute hypokalemia: Code(s): E87.6 - Hypokalemia Status: Acute Assessment and Plan: resolved, monitor (6) Physical deconditioning: Code(s): R53.81 - Other malaise Status: Acute Assessment and Plan: Continue PT/OT. Plan for SNF at discharge. (7) Hypertension: Code(s): I10 - Essential (primary) hypertension Status: Acute Assessment and Plan: Blood pressure controlled Will continue current medications. (8) Paroxysmal atrial flutter: Code(s): I48.92 - Unspecified atrial flutter Status: Chronic Assessment and Plan: HR stable. Paced rhythm by EKG. Continue Coreg for rate control, eliquis held for CT myelogram (9) Diabetes mellitus: Code(s): E11.9 - Type 2 diabetes mellitus without complications Status: Acute Assessment and Plan: A1c 7.0. The patient's blood glucose was reviewed on 09/20 Glucose remains elevated at times but overall stable. Continue AccuCheks covering with sliding scale. Hypoglycemia protocol available as needed. Home meds resumed. Dietary has seen patient and has added appropriate supplements. (10) Elevated LFTs: Code(s): R79.89 - Other specified abnormal findings of blood chemistry Status: Acute Assessment and Plan: Stable, hepatitis panel negative (11) Hyponatremia: Code(s): E87.1 - Hypo-osmolality and hyponatremia Status: Acute Assessment and Plan: Suspect hypovolemic hyponatremia, will give 1 L normal saline bolus and recheck this afternoon Recheck showed that the patient's sodium did improve with IV fluids, will continue overnight and re-evaluate tomorrow morning Plan DVT prophylaxis with SCDs GI prophylaxis not indicated Code status full code DS: Summary Hospital Course Hospital Course: 87-year-old female past medical history significant for chronic kidney disease, atrial fibrillation, type 2 diabetes mellitus, implanted pacemaker, hypertension, peripheral neuropathy secondary to diabetes mellitus Schatzki's of distal esophagus.? Patient presents for evaluation to the emergency room due to generalized weakness.? Patient was recently [facility] from [facility] to home.? Preliminary workup was significant for slightly elevated troponins. Cardiology was consulted and did not think there is any cardiac etiology to her elevated troponin.? They recommended no further workup and signed off. Patient was found to be flu positive and completed a 5 day course of Tamiflu. She was also noted to have an abnormal urinalysis and started on Rocephin.? Culture came back negative, Rocephin discontinued. Patient was initially thought to be dehydrated and so Lasix was held at admission, a few days into her stay, this was resumed. Patient was noted to have elevated LFTs, trended down.? Right upper quadrant ultrasound was normal.? These were thought to be secondary to acute viral illness, statin was held until discharge. She was seen by PT/OT who recommended SNF at discharge.? This was arranged by care coordination and patient was
[2022-09-27 11:50] VITALS: PULSE 84
[2022-09-27] MEDS: carvediloL 3.125 MG TABLET PO (11:50)
[2022-09-27 11:51] LABS: Glucose Point of Care 263 mg/dl (65-105)
[2022-09-27] MEDS: INSULIN HUMAN ISOPHAN/REGULAR 70/30 (*BKC) 100 UNITS/ML 12 UNITS SUB-Q (12:03)
[2022-09-27 12:37] LABS: EDCOVIDSCREEN Negative (Negative)
== END 2022-09-27 13:00 | DRG 194 ==
LOC: ANHED 17:16 → ANHIMU 20:38 → ANH3MEDSUR 09-17 11:46
PROVIDERS: Emergency Medicine; Internal Medicine; Internal Medicine Cardiovascular Disease; Admitting Provider Internal Medicine; Emergency Provider Emergency Medicine; PCP Internal Medicine; Visit Provider Student in an Organized Health Care Education/Training Program
DX: J10.1 Influenza due to other identified influenza virus with other respiratory manifestations (principal); E87.1 Hypo-osmolality and hyponatremia; I48.92 Unspecified atrial flutter; I13.0 Hypertensive heart and chronic kidney disease with heart failure and stage 1 through stage 4 chronic kidney disease, or unspecified chronic kidney disease; M48.061 Spinal stenosis, lumbar region without neurogenic claudication; R77.8 Other specified abnormalities of plasma proteins; E87.6 Hypokalemia; R53.81 Other malaise; R79.89 Other specified abnormal findings of blood chemistry; R15.9 Full incontinence of feces; E11.42 Type 2 diabetes mellitus with diabetic polyneuropathy; Z95.0 Presence of cardiac pacemaker; R07.89 Other chest pain; N18.30 Chronic kidney disease, stage 3 unspecified; I50.9 Heart failure, unspecified; E03.9 Hypothyroidism, unspecified; E11.22 Type 2 diabetes mellitus with diabetic chronic kidney disease; Z95.1 Presence of aortocoronary bypass graft; Z20.822 Contact with and (suspected) exposure to COVID-19; E83.42 Hypomagnesemia; Z82.49 Family history of ischemic heart disease and other diseases of the circulatory system; Z79.4 Long term (current) use of insulin; Z79.899 Other long term (current) drug therapy; Z79.82 Long term (current) use of aspirin; Z88.0 Allergy status to penicillin; Z88.1 Allergy status to other antibiotic agents
CPT/HCPCS: 36415; 62304; 71045; 71046; 72131; 72132; 76705; 80048; 80053; 80074; 80076; 81001; 82550; 82607; 82746; 82948; 83036; 83690; 83735; 84100; 84132; 84484; 85025; 85049; 85610; 85730; 87045; 87086; 87088; 87177; 87209; 87269; 87272; 87426; 87427; 87493; 87636; 89055; 93005; 94640; 96361; 96365; 96366; 96367; 96375; 96376; 97110; 97116; 97161; 97165; 97530; 97535; 99285; A9270; C9803; G0378; J0360; J0696; J1815; J2060; J2405; J3475; J3480; J7030; J7040; J7120

== ENCOUNTER 2022-12-09 19:21 | Emergency (ER) | payer MEDICARE, SELFPAY ==
--- NOTE | ~2022-12-09 | XR_ITS ---
EXAMINATION: XR hip LT 2V w AP pelvis INDICATION: Left hip pain TECHNIQUE: AP view the pelvis and two views of the left hip are obtained. COMPARISON: 08/27/2022 FINDINGS: The bones are osteopenic which limits the sensitivity for fracture however none is seen. 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 Calcified atherosclerosis is noted. Healed frac tures of the inferior pubic rami are noted. There is severe lower lumbar spondylosis. IMPRESSION: 1. No acute osseous abnormality. Reviewed, dictated and finalized at location F.
[2022-12-09 19:56] VITALS: BP 141/79; PULSE 88; RESP 20; TEMP 36.6; O2SAT 99
--- NOTE | 2022-12-09 20:42 | ED.GENADULT ---
HPI - General Adult General Chief complaint: Unspecified Stated complaint: Left side pain Source: patient and family Mode of arrival: wheelchair Limitations: no limitations History of Present Illness Onset (ago): month(s) Location: left and lower extremity Radiation: non-radiation Severity: severe Severity scale (1-10): 8 Quality: sharp Pain Consistency: constant Associated symptoms: denies other symptoms Related Data Home Medications Medication Instructions Recorded Confirmed levothyroxine 112 mcg capsule 112 mcg PO QAM 10/21/20 11/28/22 potassium chloride 10 mEq 10 meq PO DAILY 04/15/21 11/28/22 tablet,extended release aspirin 81 mg tablet,delayed 81 mg PO DAILY 05/10/21 11/28/22 release (Adult Low Dose Aspirin) ferrous sulfate 325 mg (65 mg 325 mg PO QAM 11/02/21 11/28/22 iron) tablet (FeroSul) insulin NPH-regular 70-30 U-100 10 unit subcut BID 11/02/21 11/28/22 insulin 100 unit/mL subcutaneous pen (Humulin 70/30 U-100 KwikPen) mesalamine 1.2 gram tablet,delayed 4.8 g PO QAM 06/16/22 11/28/22 release (Lialda) pravastatin 10 mg tablet 10 mg PO DAILY 06/30/22 11/28/22 apixaban 2.5 mg tablet (Eliquis) 2.5 mg PO DAILY 09/15/22 11/28/22 furosemide 40 mg tablet 40 mg PO DAILY 09/15/22 11/28/22 isosorbide mononitrate 30 mg 30 mg PO DAILY 09/15/22 11/28/22 tablet,extended release 24 hr lactase 9,000 unit chewable tablet 27,000 unit PO TID 09/15/22 11/28/22 (Lactaid Fast Act) spironolactone 25 mg tablet 25 mg PO DAILY 09/15/22 11/28/22 Allergies Allergy/AdvReac Type Severity Reaction Status Date / Time adhesive tape Allergy Severe BLISTERS Verified 11/28/22 14:11 amiodarone Allergy Severe N/V, Verified 11/28/22 14:11 HEADACHE, HOSPITALIZED atorvastatin Allergy Severe SWELLING Verified 11/28/22 14:11 clindamycin Allergy Severe TACHYCARDIA Verified 11/28/22 14:11 gabapentin Allergy Severe CHF Verified 11/28/22 14:11 gemfibrozil Allergy Severe ELEVATED Verified 11/28/22 14:11 CHOLESTEROL nifedipine Allergy Severe SWELLING Verified 11/28/22 14:11 norfloxacin Allergy Severe SWELLING Verified 11/28/22 14:11 adhesive Allergy Intermediate Unknown Verified 11/28/22 14:11 chlorpheniramine [Ornade] Allergy Intermediate Unknown Verified 11/28/22 14:11 doxycycline Allergy Intermediate Unknown Verified 11/28/22 14:11 erythromycin base Allergy Intermediate Unknown Verified 11/28/22 14:11 flurbiprofen [Ansaid] Allergy Intermediate Unknown Verified 11/28/22 14:11 tetracycline Allergy Intermediate Unconscious Verified 11/28/22 14:11 tramadol [Ultram] Allergy Intermediate Unknown Verified 11/28/22 14:11 cephalexin Allergy Mild Rash Verified 11/28/22 14:11 ciprofloxacin Allergy Unknown Unknown Verified 11/28/22 14:11 diclofenac Allergy Unknown Unknown Verified 11/28/22 14:11 hydroxyzine Allergy Unknown Unknown Verified 11/28/22 14:11 Penicillins Allergy Unknown Unknown Verified 11/28/22 14:11 propoxyphene Allergy Unknown Unknown Verified 11/28/22 14:11 terfenadine Allergy Unknown Unknown Verified 11/28/22 14:11 lactose Allergy Abdominal Verified 11/28/22 14:11 Pain butorphanol AdvReac Severe RESTLESSNES Verified 11/28/22 14:11 S cerivastatin AdvReac Severe ABDOMINAL Verified 11/28/22 14:11 PAIN, H/A dexamethasone AdvReac Severe IRRITATED Verified 11/28/22 14:11 EYES duloxetine AdvReac Severe H/A Verified 11/28/22 14:11 enalaprilat AdvReac Severe COUGH Verified 11/28/22 14:11 guaifenesin AdvReac Severe NERVOUSNESS Verified 11/28/22 14:11 hydrocodone AdvReac Severe N/V Verified 11/28/22 14:11 isosorbide AdvReac Severe H/A Verified 11/28/22 14:11 levofloxacin AdvReac Severe VOMITING Verified 11/28/22 14:11 meperidine AdvReac Severe H/A Verified 11/28/22 14:11 nitroglycerin AdvReac Severe VOMITING Verified 11/28/22 14:11 oxycodone AdvReac Severe VOMITING Verified 11/28/22 14:11 phenylephrine AdvReac Severe NERVOUSNESS Verified 11/28/22 14:11 phenylpropanolamine AdvReac Severe NERVOUSNESS Verified 11/28
[2022-12-09] MEDS: diazePAM (*CRX) 2 MG TABLET PO (22:23)
[2022-12-09 23:17] VITALS: BP 111/88; PULSE 88; RESP 20; TEMP 36.7; O2SAT 99
== END 2022-12-09 23:20 | disposition home or self-care (01) ==
PROVIDERS: Emergency Provider Family Medicine
DX: M70.62 Trochanteric bursitis, left hip (principal); I13.0 Hypertensive heart and chronic kidney disease with heart failure and stage 1 through stage 4 chronic kidney disease, or unspecified chronic kidney disease; I50.9 Heart failure, unspecified; N18.30 Chronic kidney disease, stage 3 unspecified; I25.10 Atherosclerotic heart disease of native coronary artery without angina pectoris; E11.22 Type 2 diabetes mellitus with diabetic chronic kidney disease; E78.5 Hyperlipidemia, unspecified; E03.9 Hypothyroidism, unspecified; E11.42 Type 2 diabetes mellitus with diabetic polyneuropathy; K22.2 Esophageal obstruction; M48.061 Spinal stenosis, lumbar region without neurogenic claudication; Z86.73 Personal history of transient ischemic attack (TIA), and cerebral infarction without residual deficits; Z95.0 Presence of cardiac pacemaker; Z86.010 Personal history of colon polyps; Z95.1 Presence of aortocoronary bypass graft; Z79.82 Long term (current) use of aspirin; Z79.01 Long term (current) use of anticoagulants
CPT/HCPCS: 73502; 99283; A9270

== ENCOUNTER 2022-12-13 11:48 | Observation (INO) | payer MEDICARE, SELFPAY ==
[2022-12-13] VITALS (14 sets, daily range): BP systolic 120–162; BP diastolic 60–101; PULSE 53–78; RESP 16–18; TEMP 36.1–37; O2SAT 96–100; BMI 18.8
--- NOTE | ~2022-12-13 | XR_ITS ---
EXAM: XR pelvis 1-2V DATE: 12/13/2022 21:14 HISTORY: AMS. PAIN TO LEFT SIDE OF HIP, FELL IN APRIL OF LAST YR . COMPARISON: 12/09/2022. FINDINGS: Severe osteopenia. Severe degenerative change in the lumbar spine and bilateral hips. Pelv ic and bilateral hip enthesopathy. No fracture or dislocation. Extensive vascular calcification. IMPRESSION: No acute osseous finding in the pelvis. Reviewed, dictated and finalized at location K.
--- NOTE | ~2022-12-13 | CT_ITS ---
EXAMINATION: CT brain wo con DATE: 12/13/2022 21:07 INDICATION: AMS . TECHNIQUE: Computed tomography (CT) of the head was performed without intravenous contrast. The mA wa s adjusted according to patient size. Iterative reconstruction technique was employed. The dose-lengt h product was 605.33 mGy-cm. COMPARISON: 06/16/2022. FINDINGS: No acute intracranial hemorrhage or extra-axial fluid collection. No hydrocephalus, mass, or herniation. No acute ischemic infarct. Unremarkable dural venous sinus attenuation. No acute osseous abnormality. Small fluid levels in the left inferior maxillary and right sphenoid sinuses. Left maxillary retentio n cyst/polyp. The remaining aerated spaces are clear. Moderate atrophy and chronic white matter change. Small area of chronic infarct in the left centrum s emiovale. Bilateral basal ganglia calcification. Atherosclerotic intracranial calcification. Bilatera l lens replacements. IMPRESSION: No acute intracranial process. Paranasal sinus findings may reflect acute sinusitis in the appropriat e clinical context. Reviewed, dictated and finalized at location K. IMPRESSION: No acute intracranial process. Paranasal sinus findings may reflect acute sinus itis in the appropriate clinical context.
--- NOTE | ~2022-12-13 | XR_ITS ---
EXAMINATION: XR chest 1V Exam Date/Time: 12/13/2022 20:55 CDT HISTORY: AMS Comparison: 09/17/2022. RESULT: Lines, tubes, and devices: Left chest pacer with intact leads. Intact sternotomy wires. Mediastinal surgical clips. Cholecystectomy clips. Lungs and pleura: Senescent changes, otherwise clear. Cardiomediastinal silhouette: Stable. Other: No acute upper abdominal finding. Questionable transverse lucency and cortical irregularity i nvolving the right lateral fourth and fifth ribs IMPRESSION: No acute cardiopulmonary process. Questionable nondisplaced right lateral fourth and fifth rib fractu res, correlate with point tenderness. Reviewed, dictated and finalized at location K. IMPRESSION: No acute cardiopulmonary process. Questionable nondisplaced right lateral fourt h and fifth rib fractures, correlate with point tenderness.
--- NOTE | 2022-12-13 15:03 | PC.NURSE ---
Addendum entered by Candi Jalloh RN 12/13/22 15:06: [facility] notified if [facility] is admitted to hospital. States she is on home health services for Kidney failure and DM and admitted from residential. [phone] to be called about pt status update. Original Note: [facility] notified if pt is admitted to hospital. States she is on home health services for Kidney failure and DM and admittd from residential.
--- NOTE | 2022-12-13 19:48 | ECG_ITS ---
Measurements Intervals [place] Rate: 83 P: 62 ID: [id number] QRS: -74 QRSD: 200 T: 102 QT: 456 QTc: 537 Interpretive Statements ELECTRONIC VENTRICULAR PACEMAKER ATYPICAL ECG COMPARED TO ECG 09/14/2022 14:58:40 NO SIGNIFICANT CHANGES Electronically Signed On 12-14-2022 13:46:33 CDT by Telly Padilla M.D.
--- NOTE | 2022-12-13 19:49 | ED.GENADULT ---
HPI - General Adult General Chief complaint: Unspecified Stated complaint: pain management Time Seen by Provider: 12/13/22 19:17 Related Data Home Medications Medication Instructions Recorded Confirmed levothyroxine 112 mcg capsule 112 mcg PO QAM 10/21/20 11/28/22 potassium chloride 10 mEq 10 meq PO DAILY 04/15/21 11/28/22 tablet,extended release aspirin 81 mg tablet,delayed 81 mg PO DAILY 05/10/21 11/28/22 release (Adult Low Dose Aspirin) ferrous sulfate 325 mg (65 mg 325 mg PO QAM 11/02/21 11/28/22 iron) tablet (FeroSul) insulin NPH-regular 70-30 U-100 10 unit subcut BID 11/02/21 11/28/22 insulin 100 unit/mL subcutaneous pen (Humulin 70/30 U-100 KwikPen) mesalamine 1.2 gram tablet,delayed 4.8 g PO QAM 06/16/22 11/28/22 release (Lialda) pravastatin 10 mg tablet 10 mg PO DAILY 06/30/22 11/28/22 apixaban 2.5 mg tablet (Eliquis) 2.5 mg PO DAILY 09/15/22 11/28/22 furosemide 40 mg tablet 40 mg PO DAILY 09/15/22 11/28/22 isosorbide mononitrate 30 mg 30 mg PO DAILY 09/15/22 11/28/22 tablet,extended release 24 hr lactase 9,000 unit chewable tablet 27,000 unit PO TID 09/15/22 11/28/22 (Lactaid Fast Act) spironolactone 25 mg tablet 25 mg PO DAILY 09/15/22 11/28/22 Allergies Allergy/AdvReac Type Severity Reaction Status Date / Time adhesive tape Allergy Severe BLISTERS Verified 12/13/22 11:51 amiodarone Allergy Severe N/V, Verified 12/13/22 11:51 HEADACHE, HOSPITALIZED atorvastatin Allergy Severe SWELLING Verified 12/13/22 11:51 clindamycin Allergy Severe TACHYCARDIA Verified 12/13/22 11:51 gabapentin Allergy Severe CHF Verified 12/13/22 11:51 gemfibrozil Allergy Severe ELEVATED Verified 12/13/22 11:51 CHOLESTEROL nifedipine Allergy Severe SWELLING Verified 12/13/22 11:51 norfloxacin Allergy Severe SWELLING Verified 12/13/22 11:51 adhesive Allergy Intermediate Unknown Verified 12/13/22 11:51 chlorpheniramine [Ornade] Allergy Intermediate Unknown Verified 12/13/22 11:51 doxycycline Allergy Intermediate Unknown Verified 12/13/22 11:51 erythromycin base Allergy Intermediate Unknown Verified 12/13/22 11:51 flurbiprofen [Ansaid] Allergy Intermediate Unknown Verified 12/13/22 11:51 tetracycline Allergy Intermediate Unconscious Verified 12/13/22 11:51 tramadol [Ultram] Allergy Intermediate Unknown Verified 12/13/22 11:51 cephalexin Allergy Mild Rash Verified 12/13/22 11:51 ciprofloxacin Allergy Unknown Unknown Verified 12/13/22 11:51 diclofenac Allergy Unknown Unknown Verified 12/13/22 11:51 hydroxyzine Allergy Unknown Unknown Verified 12/13/22 11:51 Penicillins Allergy Unknown Unknown Verified 12/13/22 11:51 propoxyphene Allergy Unknown Unknown Verified 12/13/22 11:51 terfenadine Allergy Unknown Unknown Verified 12/13/22 11:51 lactose Allergy Abdominal Verified 12/13/22 11:51 Pain butorphanol AdvReac Severe RESTLESSNES Verified 12/13/22 11:51 S cerivastatin AdvReac Severe ABDOMINAL Verified 12/13/22 11:51 PAIN, H/A dexamethasone AdvReac Severe IRRITATED Verified 12/13/22 11:51 EYES duloxetine AdvReac Severe H/A Verified 12/13/22 11:51 enalaprilat AdvReac Severe COUGH Verified 12/13/22 11:51 guaifenesin AdvReac Severe NERVOUSNESS Verified 12/13/22 11:51 hydrocodone AdvReac Severe N/V Verified 12/13/22 11:51 isosorbide AdvReac Severe H/A Verified 12/13/22 11:51 levofloxacin AdvReac Severe VOMITING Verified 12/13/22 11:51 meperidine AdvReac Severe H/A Verified 12/13/22 11:51 nitroglycerin AdvReac Severe VOMITING Verified 12/13/22 11:51 oxycodone AdvReac Severe VOMITING Verified 12/13/22 11:51 phenylephrine AdvReac Severe NERVOUSNESS Verified 12/13/22 11:51 phenylpropanolamine AdvReac Severe NERVOUSNESS Verified 12/13/22 11:51 prednisone AdvReac Severe H/A Verified 12/13/22 11:51 rofecoxib AdvReac Severe UPSET Verified 12/13/22 11:51 STOMACH, CAN TAKE WITH MEALS tobramycin AdvReac Severe IRRITATED Verified 12/13/22 11:51 EYES chicken derived AdvReac Intermediate Other Verifie
--- NOTE | 2022-12-13 19:51 | ED.GENADULT ---
HPI - General Adult General Chief complaint: Unspecified Stated complaint: pain management Time Seen by Provider: 12/13/22 19:17 History of Present Illness HPI narrative: This is an 87-year-old female presenting to ED with confusion. The patient is a poor historian. She says that she is here to get a 2nd opinion because she is supposed to take her iron pill 1 day a week and she believes her home nurse has given it to her for 6 days. She then says that she caught it before she actually took the pills and that now nothing bad will happen. I tried to elicit what other concerns she may have and she becomes confused and agitated. Her Gus is at bedside. The patient has been having a steady decline over the last several months she has been in our hospital with different medical problems. Now he is unable to care for her at home as she is weak and combative with him on a regular basis. He would like her to be admitted for placement. The patient denies any physical complaints at this time. Related Data Home Medications Medication Instructions Recorded Confirmed levothyroxine 112 mcg capsule 112 mcg PO QAM 10/21/20 11/28/22 potassium chloride 10 mEq 10 meq PO DAILY 04/15/21 11/28/22 tablet,extended release aspirin 81 mg tablet,delayed 81 mg PO DAILY 05/10/21 11/28/22 release (Adult Low Dose Aspirin) ferrous sulfate 325 mg (65 mg 325 mg PO QAM 11/02/21 11/28/22 iron) tablet (FeroSul) insulin NPH-regular 70-30 U-100 10 unit subcut BID 11/02/21 11/28/22 insulin 100 unit/mL subcutaneous pen (Humulin 70/30 U-100 KwikPen) mesalamine 1.2 gram tablet,delayed 4.8 g PO QAM 06/16/22 11/28/22 release (Lialda) pravastatin 10 mg tablet 10 mg PO DAILY 06/30/22 11/28/22 apixaban 2.5 mg tablet (Eliquis) 2.5 mg PO DAILY 09/15/22 11/28/22 furosemide 40 mg tablet 40 mg PO DAILY 09/15/22 11/28/22 isosorbide mononitrate 30 mg 30 mg PO DAILY 09/15/22 11/28/22 tablet,extended release 24 hr lactase 9,000 unit chewable tablet 27,000 unit PO TID 09/15/22 11/28/22 (Lactaid Fast Act) spironolactone 25 mg tablet 25 mg PO DAILY 09/15/22 11/28/22 Allergies Allergy/AdvReac Type Severity Reaction Status Date / Time adhesive tape Allergy Severe BLISTERS Verified 12/13/22 11:51 amiodarone Allergy Severe N/V, Verified 12/13/22 11:51 HEADACHE, HOSPITALIZED atorvastatin Allergy Severe SWELLING Verified 12/13/22 11:51 clindamycin Allergy Severe TACHYCARDIA Verified 12/13/22 11:51 gabapentin Allergy Severe CHF Verified 12/13/22 11:51 gemfibrozil Allergy Severe ELEVATED Verified 12/13/22 11:51 CHOLESTEROL nifedipine Allergy Severe SWELLING Verified 12/13/22 11:51 norfloxacin Allergy Severe SWELLING Verified 12/13/22 11:51 adhesive Allergy Intermediate Unknown Verified 12/13/22 11:51 chlorpheniramine [Ornade] Allergy Intermediate Unknown Verified 12/13/22 11:51 doxycycline Allergy Intermediate Unknown Verified 12/13/22 11:51 erythromycin base Allergy Intermediate Unknown Verified 12/13/22 11:51 flurbiprofen [Ansaid] Allergy Intermediate Unknown Verified 12/13/22 11:51 tetracycline Allergy Intermediate Unconscious Verified 12/13/22 11:51 tramadol [Ultram] Allergy Intermediate Unknown Verified 12/13/22 11:51 cephalexin Allergy Mild Rash Verified 12/13/22 11:51 ciprofloxacin Allergy Unknown Unknown Verified 12/13/22 11:51 diclofenac Allergy Unknown Unknown Verified 12/13/22 11:51 hydroxyzine Allergy Unknown Unknown Verified 12/13/22 11:51 Penicillins Allergy Unknown Unknown Verified 12/13/22 11:51 propoxyphene Allergy Unknown Unknown Verified 12/13/22 11:51 terfenadine Allergy Unknown Unknown Verified 12/13/22 11:51 lactose Allergy Abdominal Verified 12/13/22 11:51 Pain butorphanol AdvReac Severe RESTLESSNES Verified 12/13/22 11:51 S cerivastatin AdvReac Severe ABDOMINAL Verified 12/13/22 11:51 PAIN, H/A dexamethasone AdvReac Severe IRRITATED Verified 12/13/22 11:51 EYES duloxetine AdvReac Severe H/A Verified 12/13/22 11
[2022-12-13] MEDS: SODIUM CHLORIDE 0.9% IV 1,000 ML 999 ML IV CONT (20:04)
[2022-12-13 20:15] LABS: Basophils Percent Auto 0.7 % (0.2-1.2); Eosinophils Percent Auto 0.4 % (0-4.4); Hematocrit 38.6 % (37.0-47.0); Hemoglobin 12.6 g/dL (12.0-15.0); Immature Granulocyte Absolute 0.02 K/mm3 (0.00-0.031); Immature Granulocyte Percent A 0.4 % (0-0.5); Lymphocytes Absolute Auto 0.98 K/mm3 (0.9-3.2); Lymphocytes Percent Auto 18.2 % (18.3-44.2); Mean Corpuscular HGB Conc 32.6 g/dl (32-36); Mean Corpuscular Hemoglobin 31.1 pg (26-34); Mean Corpuscular Volume 95.3 fl (80-100); Monocytes Absolute Auto 0.4 K/mm3 (0.1-0.6); Monocytes Percent Auto 8.2 % (2.6-8.5); Neutrophils Absolute Auto 3.9 K/mm3 (1.3-6.7); Neutrophils Percent Auto 72.1 % (45.5-73.1); Platelet Count Result 237 k/mm3 (150-375); Red Blood Count 4.05 M/mm3 (4.2-5.4); Red Cell Distribution Width 13.6 % (11.5-14.5); White Blood Count 5.4 K/mm3 (4.5-10.0)
[2022-12-13 20:18] LABS: Appearance Urine Cloudy (Clear); Bacteria Urine None Seen /hpf; Bilirubin Urine Negative (Negative); Blood Urine Negative (Negative); Color Urine Yellow (Yellow); Glucose Urine UA Negative (Negative); Ketones Urine Negative (Negative); Leukocyte Esterase Ur 3+ LEU/UL (Negative); Nitrate Urine Negative (Negative); Non Pathogenic Casts 0-2; Protein Urine Negative (Negative); RBC Urine 0-2 /hpf (0-2); Squamous Epithelial Cell Urine Moderate /hpf (Few); Urobilinogen Urine 0.2 mg/dL (<2.0); WBC Urine 21-50 /hpf
[2022-12-13 20:23] LABS: Add Urine Microscopic? YES
[2022-12-13 20:27] LABS: Alanine Aminotransferase 19 U/L (6-35); Albumin Level 4.5 g/dL (3.5-5.1); Alkaline Phosphatase 127 U/L (38-126); Anion Gap 5 mmol/L (8-16); Aspartate Amino Transferase 33 U/L (14-36); Bilirubin,Total 0.5 mg/dL (0.2-1.3); Blood Urea Nitrogen 26 mg/dL (7-17); Calcium 9.8 mg/dL (8.4-10.2); Carbon Dioxide 34 mmol/L (22-30); Chloride 97 mmol/L (98-107); Creatine Kinase 21 U/L (30-135); Estimated CRCL calculation 35 ml/min; Estimated Glomerular Filt Rate > 60; Glucose 150 mg/dL (65-110); Magnesium 1.9 mg/dL (1.6-2.3); Potassium 4.4 mmol/L (3.4-5.0); Sodium 136 mmol/L (137-145)
[2022-12-13 20:30] LABS: Lipase < 10 U/L (23-300)
[2022-12-13 20:53] LABS: Influenza A QL RT-PCR Negative (Negative); Influenza B QL RT-PCR Negative (Negative); RSV RNA, RT-PCR Negative (Negative); SARS-CoV-2 RNA PCR Negative
--- NOTE | 2022-12-13 21:19 | PC.NURSE ---
inpatient doctor not ordering blood cultures at this time
--- NOTE | 2022-12-13 22:00 | PM.IMHP ---
H&P: HPI History of Present Illness Date/Time: 12/13/22 22:00 Chief Complaint: Generalized weakness Narrative: This is an 87-year-old female with past medical history significant for hypertension, dyslipidemia, atrial fibrillation, rate controlled anticoagulated, insulin-dependent diabetes mellitus, coronary artery disease, lumbar spinal stenosis. Patient has failed outpatient treatment for urinary tract infection has had history of recurrent urinary tract infections. Comes in due to generalized weakness, poor appetite, poor oral intake, chills, pain and burning with urination, denies nausea, vomiting, has had diarrhea. Preliminary workup was significant for urinalysis with numerous WBCs present. Patient has been admitted for further evaluation management and treatment. Review of Systems Review of Systems: Generalized weakness, diarrhea, poor per orally intake, chills, pain or burning with urination. Constitutional: Constitutional: Reports chills, Reports fatigue, Reports lethargy, Reports malaise, Reports poor appetite and Reports weakness Eyes: Eyes: Denies change in vision ENT: Denies dysphagia and Denies odynophagia Cardiovascular: Cardiovascular: Denies chest pain and Denies leg edema Respiratory: Respiratory: Denies cough and Denies wheezing Gastrointestinal: Gastrointestinal: Reports abdominal pain, Denies dyspepsia, Reports diarrhea, Denies nausea and Denies vomiting Genitourinary: Genitourinary: Reports dysuria Musculoskeletal: Musculoskeletal: Reports myalgias and Reports muscle weakness Integumentary/Breasts: Skin/Breast: Denies rash Neurologic: Denies focal weakness and Denies Sensory deficit (Neuro) Psychiatric: Psychiatric: Reports no additional psychiatric complaints and Reports as per HPI Endocrine: Endocrine: Denies cold intolerance, Denies flushing, Denies heat intolerance, Denies polyphagia, Denies polydipsia and Denies palpitations Hematologic/Lymphatic: Hematologic/Lymphatic: Reports no additional hematologic/lymphatic complaints and Reports as per HPI Allergic/Immunologic: Allergic/Immunologic: Reports no additional allergic/immunologic complaints and Reports as per HPI PMFSH Past Medical History Medical History Abdominal pain Cardiomegaly Chemical conjunctivitis of both eyes Chronic anemia Chronic anticoagulation 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trial flutter. CKD (chronic kidney disease) stage 3, GFR 30-59 ml/min Closed head injury Congestive heart failure Contusion of right shoulder Coronary artery disease Diabetes type 2, controlled Dysphagia Elevated antinuclear antibody (ARAMIS) level Elevated liver enzymes Fall (~07/22/19) History of colon polyps History of esophageal dilatation History of pacemaker History of TIA (transient ischemic attack) and stroke Hyperlipidemia associated with type 2 diabetes mellitus Hypertension Hypertension associated with stage 3 chronic kidney disease due to type 2 diabetes mellitus Hyponatremia Hypothyroidism Lumbar stenosis Paroxysmal atrial flutter Peripheral sensory neuropathy due to type 2 diabetes mellitus Rectal bleeding Schatzki's ring of distal esophagus Trigger finger, right middle finger Surgical History Surgical History History of appendectomy History of arthroplasty of right knee History of cholecystectomy History of colonoscopy with polypectomy Last colonoscopy in 01/2020 with descending colon polyp biopsied and showing ulcerated tubulovillous adenoma with high-grade dysplasia. History of mitral valve repair 4 vessel CABG and Mitral Valve Repair at [facility] in 1995. 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
[2022-12-13] MEDS: ONDANSETRON INJ 4 MG/2 ML VIAL IV PUSH (22:53)
[2022-12-13] MEDS: SODIUM CHLORIDE 0.9% IV 2,000 ML 999 ML IV CONT (22:53)
--- NOTE | 2022-12-13 23:33 | ADMGEN ---
This patient, Dinorah Thorpe, was admitted to Medical Room 345-01. Patient/family oriented to hospital policies and general routines including ID bracelet, bed and alarms, visiting hours, pain management, procedures, bathroom and other care routines, personal items, smoking policy, room service/diet, and visiting hours. Information on how to activate the Rapid Response Team has been discussed. Patient/Family are encouraged to report perceived risks to care and to ask questions if they do not understand what they are told or what they should do.
[2022-12-14] VITALS (8 sets, daily range): BP systolic 162–185; BP diastolic 71–83; PULSE 74–91; RESP 16–18; TEMP 36.3–37; O2SAT 94–100; BMI 18.8
[2022-12-14 00:41] LABS: Glucose Point of Care 157 mg/dl (65-105)
[2022-12-14] MEDS: LACTATED RINGERS 1,000 ML 75 ML IV CONT ×2 (02:51→17:01)
[2022-12-14] MEDS: LEVOTHYROXINE SODIUM 112 MCG TABLET PO (06:03)
[2022-12-14] MEDS: LOPERAMIDE HCL 2 MG CAPSULE PO ×3 (08:12→17:02)
[2022-12-14] MEDS: APIXABAN 2.5 MG TABLET PO (08:17)
[2022-12-14] MEDS: LOSARTAN POTASSIUM 25 MG TABLET PO (08:17)
[2022-12-14] MEDS: ISOSORBIDE MONONITRATE 30 MG TAB.ER.24H PO (08:17)
[2022-12-14] MEDS: MAGNESIUM OXIDE 400 MG TABLET PO (08:17)
[2022-12-14] MEDS: PANTOPRAZOLE 40 MG TABLET PO (08:17)
[2022-12-14] MEDS: SPIRONOLACTONE 25 MG TABLET PO (08:17)
[2022-12-14] MEDS: PRAVASTATIN SODIUM 10 MG TABLET PO (08:17)
[2022-12-14] MEDS: carvediloL 3.125 MG TABLET PO ×2 (08:18→20:12)
[2022-12-14] MEDS: LIDOCAINE 5% PATCH 1 PATCH TRANSDERM (08:23)
[2022-12-14 08:24] LABS: Glucose Point of Care 140 mg/dl (65-105)
[2022-12-14] MEDS: INSULIN HUMAN ISOPHAN/REGULAR 70/30 (*BKC) 100 UNITS/ML 10 UNITS SUB-Q ×2 (08:26→17:05)
[2022-12-14 11:56] LABS: Glucose Point of Care 209 mg/dl (65-105)
--- NOTE | 2022-12-14 12:10 | PM.IMPN ---
Progress Note: A&P Assessment and Plan (1) Acute UTI: Code(s): N39.0 - Urinary tract infection, site not specified Status: Acute Assessment and Plan: Admit to regular medical floor Patient started on Rocephin Await cultures Supportive care (2) Physical deconditioning: Code(s): R53.81 - Other malaise Status: Acute Assessment and Plan: PT OT consult (3) Diabetes mellitus: Code(s): E11.9 - Type 2 diabetes mellitus without complications Status: Acute Assessment and Plan: Continue home meds Continue to monitor (4) Coronary artery disease: Qualifiers: Coronary Disease-Associated Artery/Lesion type: unspecified vessel or lesion type [place] vs. transplanted heart: unspecified whether redding or transplanted heart Associated angina: without angina Qualified Code(s): I25.10 - Atherosclerotic heart disease of redding coronary artery without angina pectoris Code(s): I25.10 - Atherosclerotic heart disease of redding coronary artery without angina pectoris Status: Chronic Assessment and Plan: Chest pain-free Continue home meds (5) Atrial flutter: Code(s): I48.92 - Unspecified atrial flutter Status: Acute Assessment and Plan: Rate control and anticoagulated (6) Hyperlipidemia associated with type 2 diabetes mellitus: Code(s): E11.69 - Type 2 diabetes mellitus with other specified complication; E78.5 - Hyperlipidemia, unspecified Status: Chronic Assessment and Plan: Statin on hold (7) CAD (coronary artery disease), autologous vein bypass graft: Code(s): I25.810 - Atherosclerosis of coronary artery bypass graft(s) without angina pectoris Status: Acute Assessment and Plan: Chest pain-free (8) Lumbar stenosis: Code(s): M48.061 - Spinal stenosis, lumbar region without neurogenic claudication Status: Acute Assessment and Plan: Conservative management Subjective Date/time seen: 12/14/22 12:10 No complaints Exam Narrative: Laying in a stretcher Const: General: comfortable, no acute distress, well developed, alert, awake, average body habitus and underweight Nutritional Appearance: average body habitus and underweight Orientation/consciousness: patient oriented x3 Other: Patient ill looking HENMT: Head: normal to inspection, normocephalic and atraumatic Ears: hearing grossly normal bilaterally Face/Nose/Sinus: normal facial exam Face and sinus: normal facial exam Eyes: General: appearance normal, both eyes and all related structures Pupils: Equal, round and reactive pupils present EOM: EOMs intact bilaterally Neck: Neck: full ROM, no lymphadenopathy and no JVD Thyroid: thyroid normal Lymphatic: no lymphadenopathy noted Resp: Effort & Inspection: normal respiratory effort and able to speak in complete sentences Auscultation: clear to auscultation bilaterally Cardio: Jugular venous distension: no JVD Rate: regular rate Rhythm: regular rhythm Heart sounds: S1 normal heart sound present and S2 normal heart sound present GI: Inspection: normal to inspection : General: Yes deferred Skin: Rashes: no rashes Wounds: no wounds Neuro: General: patient oriented x3, CN's II-XI intact bilaterally and Unable to assess gait Cranial nerves: Yes CN's II-XII intact bilaterally and Yes Equal, round and reactive pupils present Cognition (Neuro): normal cognition Speech: normal speech Gait exam (Neuro): Unable to assess gait Motor exam (neuro): 5/5 motor strength present throughout Sensory Exam: No Sensory deficit (Neuro) Extrem: General: normal to inspection, full ROM, no joint enlargement and no pedal edema Objective Data Vital Signs Vital Signs: Vital Signs - 24 hr 12/13/22 12:41 12/13/22 16:17 12/13/22 19:29 Temperature 97.7 F 97.6 F Pulse Rate 78 53 L Respiratory Rate 16 18 Blood Pressure 120/99 H 152/101 H Pulse Oximetry 100 98 100 Oxygen
--- NOTE | 2022-12-14 12:18 | PC.NURSE ---
Spoke with regarding medication clarifications. states that does not take lactaid any more. And will bring up the mesalamine for us to give to her on his next visit.
[2022-12-14] MEDS: FERROUS SULFATE 324 MG TABLET PO (12:33)
[2022-12-14] MEDS: ASPIRIN 81 MG ENTERIC TABLET PO (12:33)
[2022-12-14 17:03] LABS: Glucose Point of Care 177 mg/dl (65-105)
[2022-12-14 20:51] LABS: Glucose Point of Care 179 mg/dl (65-105)
[2022-12-15 04:38] VITALS: BP 168/84; PULSE 77; RESP 16; TEMP 36.8; O2SAT 99
[2022-12-15] MEDS: LEVOTHYROXINE SODIUM 112 MCG TABLET PO (06:00)
[2022-12-15 08:12] LABS: Glucose Point of Care 127 mg/dl (65-105)
[2022-12-15] MEDS: LOSARTAN POTASSIUM 25 MG TABLET PO (09:07)
[2022-12-15] MEDS: APIXABAN 2.5 MG TABLET PO (09:07)
[2022-12-15] MEDS: PANTOPRAZOLE 40 MG TABLET PO (09:07)
[2022-12-15] MEDS: PRAVASTATIN SODIUM 10 MG TABLET PO (09:07)
[2022-12-15 09:08] VITALS: PULSE 79
[2022-12-15] MEDS: ISOSORBIDE MONONITRATE 30 MG TAB.ER.24H PO (09:08)
[2022-12-15] MEDS: carvediloL 3.125 MG TABLET PO ×2 (09:08→21:02)
[2022-12-15] MEDS: MAGNESIUM OXIDE 400 MG TABLET PO (09:08)
[2022-12-15] MEDS: SPIRONOLACTONE 25 MG TABLET PO (09:17)
[2022-12-15] MEDS: LOPERAMIDE HCL 2 MG CAPSULE PO ×3 (09:18→17:13)
[2022-12-15] MEDS: INSULIN HUMAN ISOPHAN/REGULAR 70/30 (*BKC) 100 UNITS/ML 10 UNITS SUB-Q (09:18)
--- NOTE | 2022-12-15 09:44 | PHAR ---
HOME MED: Mesalamine [Lialda] 1.2 gram tablet,delayed release (DR/EC); TAKE 4 TABLETS BY MOUTH ONCE DAILY WITH MEAL. VERIFIED BY PHARMACY
--- NOTE | 2022-12-15 10:50 | PM.IMPN ---
Progress Note: A&P Assessment and Plan (1) Acute UTI: Code(s): N39.0 - Urinary tract infection, site not specified Status: Acute Assessment and Plan: Admit to regular medical floor Patient started on Rocephin Await cultures Supportive care (2) Physical deconditioning: Code(s): R53.81 - Other malaise Status: Acute Assessment and Plan: PT OT consult (3) Diabetes mellitus: Code(s): E11.9 - Type 2 diabetes mellitus without complications Status: Acute Assessment and Plan: Continue home meds Continue to monitor (4) Coronary artery disease: Qualifiers: Coronary Disease-Associated Artery/Lesion type: unspecified vessel or lesion type [place] vs. transplanted heart: unspecified whether [place] or transplanted heart Associated angina: without angina Qualified Code(s): I25.10 - Atherosclerotic heart disease of [place] coronary artery without angina pectoris Code(s): I25.10 - Atherosclerotic heart disease of [place] coronary artery without angina pectoris Status: Chronic Assessment and Plan: Chest pain-free Continue home meds (5) Atrial flutter: Code(s): I48.92 - Unspecified atrial flutter Status: Acute Assessment and Plan: Rate control and anticoagulated (6) Hyperlipidemia associated with type 2 diabetes mellitus: Code(s): E11.69 - Type 2 diabetes mellitus with other specified complication; E78.5 - Hyperlipidemia, unspecified Status: Chronic Assessment and Plan: Statin on hold (7) CAD (coronary artery disease), autologous vein bypass graft: Code(s): I25.810 - Atherosclerosis of coronary artery bypass graft(s) without angina pectoris Status: Acute Assessment and Plan: Chest pain-free (8) Lumbar stenosis: Code(s): M48.061 - Spinal stenosis, lumbar region without neurogenic claudication Status: Acute Assessment and Plan: Conservative management Subjective Date/time seen: 12/15/22 10:50 No complaints Exam Narrative: Laying in a stretcher Const: General: comfortable, no acute distress, well developed, alert, awake, average body habitus and underweight Nutritional Appearance: average body habitus and underweight Orientation/consciousness: patient oriented x3 Other: Patient ill looking HENMT: Head: normal to inspection, normocephalic and atraumatic Ears: hearing grossly normal bilaterally Face/Nose/Sinus: normal facial exam Face and sinus: normal facial exam Eyes: General: appearance normal, both eyes and all related structures Pupils: Equal, round and reactive pupils present EOM: EOMs intact bilaterally Neck: Neck: full ROM, no lymphadenopathy and no JVD Thyroid: thyroid normal Lymphatic: no lymphadenopathy noted Resp: Effort & Inspection: normal respiratory effort and able to speak in complete sentences Auscultation: clear to auscultation bilaterally Cardio: Jugular venous distension: no JVD Rate: regular rate Rhythm: regular rhythm Heart sounds: S1 normal heart sound present and S2 normal heart sound present GI: Inspection: normal to inspection : General: Yes deferred Skin: Rashes: no rashes Wounds: no wounds Neuro: General: patient oriented x3, CN's II-XI intact bilaterally and Unable to assess gait Cranial nerves: Yes CN's II-XII intact bilaterally and Yes Equal, round and reactive pupils present Cognition (Neuro): normal cognition Speech: normal speech Gait exam (Neuro): Unable to assess gait Motor exam (neuro): 5/5 motor strength present throughout Sensory Exam: No Sensory deficit (Neuro) Extrem: General: normal to inspection, full ROM, no joint enlargement and no pedal edema Objective Data Vital Signs Vital Signs: Vital Signs - 24 hr 12/14/22 14:54 12/14/22 14:00 12/14/22 19:47 Temperature 98.6 F 97.4 F L Pulse Rate 79 91 Respiratory Rate 16 18 Blood Pressure 185/82 H 162/83 H Pulse Oximetry 95 99 Oxygen Deliv
[2022-12-15 12:15] LABS: Glucose Point of Care 189 mg/dl (65-105)
[2022-12-15] MEDS: FERROUS SULFATE 324 MG TABLET PO (12:37)
[2022-12-15] MEDS: ASPIRIN 81 MG ENTERIC TABLET PO (12:37)
[2022-12-15] MEDS: LACTATED RINGERS 1,000 ML 75 ML IV CONT (12:37)
[2022-12-15] MEDS: LIDOCAINE 5% PATCH 1 PATCH TRANSDERM (12:41)
[2022-12-15 14:00] VITALS: BP 155/64; PULSE 87; RESP 14; TEMP 37; O2SAT 99
[2022-12-15 16:39] LABS: Glucose Point of Care 94 mg/dl (65-105)
[2022-12-15] MEDS: SULFAMETHOXAZOLE/TRIMETHOPRIM 800/160 MG DS TABLET 1 TAB PO (17:12)
[2022-12-15 19:13] VITALS: BP 152/64; PULSE 83; RESP 18; TEMP 37; O2SAT 100
[2022-12-15 20:00] VITALS: PULSE 74; RESP 18; O2SAT 100
[2022-12-15 21:02] VITALS: PULSE 74
[2022-12-15 21:16] LABS: Glucose Point of Care 170 mg/dl (65-105)
[2022-12-15] MEDS: ACETAMINOPHEN 500 MG TABLET 1000 MG PO (22:58)
[2022-12-16] VITALS (7 sets, daily range): BP systolic 137–169; BP diastolic 70–79; PULSE 60–75; RESP 16–20; TEMP 36.1–37; O2SAT 97–99
[2022-12-16] MEDS: LEVOTHYROXINE SODIUM 112 MCG TABLET PO (06:06)
[2022-12-16] MEDS: SULFAMETHOXAZOLE/TRIMETHOPRIM 800/160 MG DS TABLET 1 TAB PO ×2 (06:06→17:06)
[2022-12-16 08:37] LABS: Glucose Point of Care 148 mg/dl (65-105)
[2022-12-16] MEDS: APIXABAN 2.5 MG TABLET PO (09:14)
[2022-12-16] MEDS: MAGNESIUM OXIDE 400 MG TABLET PO (09:14)
[2022-12-16] MEDS: ISOSORBIDE MONONITRATE 30 MG TAB.ER.24H PO (09:14)
[2022-12-16] MEDS: SPIRONOLACTONE 25 MG TABLET PO (09:14)
[2022-12-16] MEDS: PANTOPRAZOLE 40 MG TABLET PO (09:14)
[2022-12-16] MEDS: carvediloL 3.125 MG TABLET PO ×2 (09:14→21:45)
[2022-12-16] MEDS: LOSARTAN POTASSIUM 25 MG TABLET PO (09:14)
[2022-12-16] MEDS: LOPERAMIDE HCL 2 MG CAPSULE PO ×3 (09:14→17:06)
[2022-12-16] MEDS: PRAVASTATIN SODIUM 10 MG TABLET PO (09:14)
[2022-12-16] MEDS: INSULIN HUMAN ISOPHAN/REGULAR 70/30 (*BKC) 100 UNITS/ML 10 UNITS SUB-Q ×2 (09:15→17:34)
[2022-12-16] MEDS: LIDOCAINE 5% PATCH 1 PATCH TRANSDERM (09:23)
[2022-12-16] MEDS: ASPIRIN 81 MG ENTERIC TABLET PO (12:16)
[2022-12-16] MEDS: FERROUS SULFATE 324 MG TABLET PO (12:16)
--- NOTE | 2022-12-16 12:18 | PM.DS ---
DS: Admitting Diagnosis Discharge Date December 16, 2022 Admitting Diagnosis UTI DS: Discharge Diagnosis Discharge Diagnosis (1) Acute UTI: Code(s): N39.0 - Urinary tract infection, site not specified Status: Acute Assessment and Plan: Admit to regular medical floor Patient started on Rocephin Await cultures Supportive care (2) Physical deconditioning: Code(s): R53.81 - Other malaise Status: Acute Assessment and Plan: PT OT consult (3) Diabetes mellitus: Code(s): E11.9 - Type 2 diabetes mellitus without complications Status: Acute Assessment and Plan: Continue home meds Continue to monitor (4) Coronary artery disease: Qualifiers: Coronary Disease-Associated Artery/Lesion type: unspecified vessel or lesion type [place] vs. transplanted heart: unspecified whether [place] or transplanted heart Associated angina: without angina Qualified Code(s): I25.10 - Atherosclerotic heart disease of [place] coronary artery without angina pectoris Code(s): I25.10 - Atherosclerotic heart disease of [place] coronary artery without angina pectoris Status: Chronic Assessment and Plan: Chest pain-free Continue home meds (5) Atrial flutter: Code(s): I48.92 - Unspecified atrial flutter Status: Acute Assessment and Plan: Rate control and anticoagulated (6) Hyperlipidemia associated with type 2 diabetes mellitus: Code(s): E11.69 - Type 2 diabetes mellitus with other specified complication; E78.5 - Hyperlipidemia, unspecified Status: Chronic Assessment and Plan: Statin on hold (7) CAD (coronary artery disease), autologous vein bypass graft: Code(s): I25.810 - Atherosclerosis of coronary artery bypass graft(s) without angina pectoris Status: Acute Assessment and Plan: Chest pain-free (8) Lumbar stenosis: Code(s): M48.061 - Spinal stenosis, lumbar region without neurogenic claudication Status: Acute Assessment and Plan: Conservative management DS: Summary Hospital Course Hospital Course: Admitted for UTI, sent home on Bactrim. She also had altered mental status on admission and this has subsequently resolved. Time Spent with Patient Time attestation: Total time spent providing and/or coordinating discharge services: Exam Narrative: Laying in a stretcher Const: General: comfortable, no acute distress, well developed, alert, awake, average body habitus and underweight Nutritional Appearance: average body habitus and underweight Orientation/consciousness: patient oriented x3 Other: Patient ill looking HENMT: Head: normal to inspection, normocephalic and atraumatic Ears: hearing grossly normal bilaterally Face/Nose/Sinus: normal facial exam Face and sinus: normal facial exam Eyes: General: appearance normal, both eyes and all related structures Pupils: Equal, round and reactive pupils present EOM: EOMs intact bilaterally Neck: Neck: full ROM, no lymphadenopathy and no JVD Thyroid: thyroid normal Lymphatic: no lymphadenopathy noted Resp: Effort & Inspection: normal respiratory effort and able to speak in complete sentences Auscultation: clear to auscultation bilaterally Cardio: Jugular venous distension: no JVD Rate: regular rate Rhythm: regular rhythm Heart sounds: S1 normal heart sound present and S2 normal heart sound present GI: Inspection: normal to inspection : General: Yes deferred Skin: Rashes: no rashes Wounds: no wounds Neuro: General: patient oriented x3, CN's II-XI intact bilaterally and Unable to assess gait Cranial nerves: Yes CN's II-XII intact bilaterally and Yes Equal, round and reactive pupils present Cognition (Neuro): normal cognition Speech: normal speech Gait exam (Neuro): Unable to assess gait Motor exam (neuro): 5/5 motor strength present throughout Sensory Exam: No Sensory deficit (Neuro) Extrem: General: normal to inspectio
[2022-12-16 12:22] LABS: Glucose Point of Care 173 mg/dl (65-105)
[2022-12-16 17:32] LABS: Glucose Point of Care 157 mg/dl (65-105)
[2022-12-17] VITALS (7 sets, daily range): BP systolic 134–170; BP diastolic 63–90; PULSE 65–80; RESP 16–20; TEMP 36.5–36.9; O2SAT 98–99
[2022-12-17] MEDS: LEVOTHYROXINE SODIUM 112 MCG TABLET PO (05:52)
[2022-12-17] MEDS: SULFAMETHOXAZOLE/TRIMETHOPRIM 800/160 MG DS TABLET 1 TAB PO ×2 (05:52→17:14)
[2022-12-17] MEDS: carvediloL 3.125 MG TABLET PO ×2 (08:26→21:17)
[2022-12-17] MEDS: MAGNESIUM OXIDE 400 MG TABLET PO (08:26)
[2022-12-17] MEDS: APIXABAN 2.5 MG TABLET PO (08:26)
[2022-12-17] MEDS: ISOSORBIDE MONONITRATE 30 MG TAB.ER.24H PO (08:26)
[2022-12-17] MEDS: PRAVASTATIN SODIUM 10 MG TABLET PO (08:26)
[2022-12-17] MEDS: PANTOPRAZOLE 40 MG TABLET PO (08:26)
[2022-12-17] MEDS: LOSARTAN POTASSIUM 25 MG TABLET PO (08:26)
[2022-12-17] MEDS: LIDOCAINE 5% PATCH 1 PATCH TRANSDERM (08:33)
[2022-12-17 08:35] LABS: Glucose Point of Care 132 mg/dl (65-105)
[2022-12-17] MEDS: INSULIN HUMAN ISOPHAN/REGULAR 70/30 (*BKC) 100 UNITS/ML 10 UNITS SUB-Q ×2 (08:37→17:15)
[2022-12-17 11:50] LABS: Glucose Point of Care 255 mg/dl (65-105)
[2022-12-17] MEDS: FERROUS SULFATE 324 MG TABLET PO (12:08)
[2022-12-17] MEDS: SPIRONOLACTONE 25 MG TABLET PO (12:08)
[2022-12-17] MEDS: ASPIRIN 81 MG ENTERIC TABLET PO (12:08)
[2022-12-17] MEDS: LOPERAMIDE HCL 2 MG CAPSULE PO ×2 (12:09→17:14)
--- NOTE | 2022-12-17 12:24 | PM.IMPN ---
Progress Note: A&P Assessment and Plan (1) Acute UTI: Code(s): N39.0 - Urinary tract infection, site not specified Status: Acute Assessment and Plan: Admit to regular medical floor Patient started on Rocephin Await cultures Supportive care (2) Physical deconditioning: Code(s): R53.81 - Other malaise Status: Acute Assessment and Plan: PT OT consult (3) Diabetes mellitus: Code(s): E11.9 - Type 2 diabetes mellitus without complications Status: Acute Assessment and Plan: Continue home meds Continue to monitor (4) Coronary artery disease: Qualifiers: Coronary Disease-Associated Artery/Lesion type: unspecified vessel or lesion type [place] vs. transplanted heart: unspecified whether [place] or transplanted heart Associated angina: without angina Qualified Code(s): I25.10 - Atherosclerotic heart disease of [place] coronary artery without angina pectoris Code(s): I25.10 - Atherosclerotic heart disease of [place] coronary artery without angina pectoris Status: Chronic Assessment and Plan: Chest pain-free Continue home meds (5) Atrial flutter: Code(s): I48.92 - Unspecified atrial flutter Status: Acute Assessment and Plan: Rate control and anticoagulated (6) Hyperlipidemia associated with type 2 diabetes mellitus: Code(s): E11.69 - Type 2 diabetes mellitus with other specified complication; E78.5 - Hyperlipidemia, unspecified Status: Chronic Assessment and Plan: Statin on hold (7) CAD (coronary artery disease), autologous vein bypass graft: Code(s): I25.810 - Atherosclerosis of coronary artery bypass graft(s) without angina pectoris Status: Acute Assessment and Plan: Chest pain-free (8) Lumbar stenosis: Code(s): M48.061 - Spinal stenosis, lumbar region without neurogenic claudication Status: Acute Assessment and Plan: Conservative management Subjective Date/time seen: 12/17/22 12:24 No complaints Exam Narrative: Laying in a stretcher Const: General: comfortable, no acute distress, well developed, alert, awake, average body habitus and underweight Nutritional Appearance: average body habitus and underweight Orientation/consciousness: patient oriented x3 Other: Patient ill looking HENMT: Head: normal to inspection, normocephalic and atraumatic Ears: hearing grossly normal bilaterally Face/Nose/Sinus: normal facial exam Face and sinus: normal facial exam Eyes: General: appearance normal, both eyes and all related structures Pupils: Equal, round and reactive pupils present EOM: EOMs intact bilaterally Neck: Neck: full ROM, no lymphadenopathy and no JVD Thyroid: thyroid normal Lymphatic: no lymphadenopathy noted Resp: Effort & Inspection: normal respiratory effort and able to speak in complete sentences Auscultation: clear to auscultation bilaterally Cardio: Jugular venous distension: no JVD Rate: regular rate Rhythm: regular rhythm Heart sounds: S1 normal heart sound present and S2 normal heart sound present GI: Inspection: normal to inspection : General: Yes deferred Skin: Rashes: no rashes Wounds: no wounds Neuro: General: patient oriented x3, CN's II-XI intact bilaterally and Unable to assess gait Cranial nerves: Yes CN's II-XII intact bilaterally and Yes Equal, round and reactive pupils present Cognition (Neuro): normal cognition Speech: normal speech Gait exam (Neuro): Unable to assess gait Motor exam (neuro): 5/5 motor strength present throughout Sensory Exam: No Sensory deficit (Neuro) Extrem: General: normal to inspection, full ROM, no joint enlargement and no pedal edema Objective Data Vital Signs Vital Signs: Vital Signs - 24 hr 12/16/22 14:00 12/16/22 20:00 12/16/22 21:45 Temperature 98.6 F Pulse Rate 72 72 70 Respiratory Rate 20 20 Blood Pressure 151/79 H Pulse Oximetry 97 97 Oxygen Delivery Room Air
[2022-12-17 16:20] LABS: Glucose Point of Care 207 mg/dl (65-105)
[2022-12-18] MEDS: SULFAMETHOXAZOLE/TRIMETHOPRIM 800/160 MG DS TABLET 1 TAB PO ×2 (04:34→18:05)
[2022-12-18] MEDS: LEVOTHYROXINE SODIUM 112 MCG TABLET PO (04:34)
[2022-12-18] MEDS: LOPERAMIDE HCL 2 MG CAPSULE PO ×4 (04:37→18:07)
[2022-12-18 05:29] VITALS: BP 136/65; PULSE 50; RESP 18; TEMP 36.5; O2SAT 99
[2022-12-18 08:27] LABS: Glucose Point of Care 130 mg/dl (65-105)
[2022-12-18 08:58] LABS: Anion Gap 9 mmol/L (8-16); Blood Urea Nitrogen 17 mg/dL (7-17); Carbon Dioxide 24 mmol/L (22-30); Chloride 102 mmol/L (98-107); Estimated CRCL calculation 32 ml/min; Estimated Glomerular Filt Rate 60; Glucose 111 mg/dL (65-110); Potassium 3.9 mmol/L (3.4-5.0); Sodium 135 mmol/L (137-145)
[2022-12-18 09:08] VITALS: BP 142/59; PULSE 80
[2022-12-18] MEDS: INSULIN HUMAN ISOPHAN/REGULAR 70/30 (*BKC) 100 UNITS/ML 10 UNITS SUB-Q ×2 (09:08→18:06)
[2022-12-18 09:11] VITALS: PULSE 80
[2022-12-18] MEDS: carvediloL 3.125 MG TABLET PO ×2 (09:11→21:35)
[2022-12-18] MEDS: APIXABAN 2.5 MG TABLET PO (09:11)
[2022-12-18] MEDS: PANTOPRAZOLE 40 MG TABLET PO (09:12)
[2022-12-18] MEDS: PRAVASTATIN SODIUM 10 MG TABLET PO (09:12)
[2022-12-18] MEDS: LOSARTAN POTASSIUM 25 MG TABLET PO (09:12)
[2022-12-18] MEDS: MAGNESIUM OXIDE 400 MG TABLET PO (09:12)
[2022-12-18] MEDS: SPIRONOLACTONE 25 MG TABLET PO (09:12)
[2022-12-18] MEDS: ISOSORBIDE MONONITRATE 30 MG TAB.ER.24H PO (09:12)
[2022-12-18] MEDS: LIDOCAINE 5% PATCH 1 PATCH TRANSDERM (09:17)
--- NOTE | 2022-12-18 11:45 | PM.IMPN ---
Progress Note: A&P Assessment and Plan (1) Acute UTI: Code(s): N39.0 - Urinary tract infection, site not specified Status: Acute Assessment and Plan: Admit to regular medical floor Patient started on Rocephin Await cultures Supportive care (2) Physical deconditioning: Code(s): R53.81 - Other malaise Status: Acute Assessment and Plan: PT OT consult (3) Diabetes mellitus: Code(s): E11.9 - Type 2 diabetes mellitus without complications Status: Acute Assessment and Plan: Continue home meds Continue to monitor (4) Coronary artery disease: Qualifiers: Coronary Disease-Associated Artery/Lesion type: unspecified vessel or lesion type [place] vs. transplanted heart: unspecified whether [place] or transplanted heart Associated angina: without angina Qualified Code(s): I25.10 - Atherosclerotic heart disease of [place] coronary artery without angina pectoris Code(s): I25.10 - Atherosclerotic heart disease of [place] coronary artery without angina pectoris Status: Chronic Assessment and Plan: Chest pain-free Continue home meds (5) Atrial flutter: Code(s): I48.92 - Unspecified atrial flutter Status: Acute Assessment and Plan: Rate control and anticoagulated (6) Hyperlipidemia associated with type 2 diabetes mellitus: Code(s): E11.69 - Type 2 diabetes mellitus with other specified complication; E78.5 - Hyperlipidemia, unspecified Status: Chronic Assessment and Plan: Statin on hold (7) CAD (coronary artery disease), autologous vein bypass graft: Code(s): I25.810 - Atherosclerosis of coronary artery bypass graft(s) without angina pectoris Status: Acute Assessment and Plan: Chest pain-free (8) Lumbar stenosis: Code(s): M48.061 - Spinal stenosis, lumbar region without neurogenic claudication Status: Acute Assessment and Plan: Conservative management Subjective Date/time seen: 12/18/22 11:45 No complaints Exam Narrative: Laying in a stretcher Const: General: comfortable, no acute distress, well developed, alert, awake, average body habitus and underweight Nutritional Appearance: average body habitus and underweight Orientation/consciousness: patient oriented x3 Other: Patient ill looking HENMT: Head: normal to inspection, normocephalic and atraumatic Ears: hearing grossly normal bilaterally Face/Nose/Sinus: normal facial exam Face and sinus: normal facial exam Eyes: General: appearance normal, both eyes and all related structures Pupils: Equal, round and reactive pupils present EOM: EOMs intact bilaterally Neck: Neck: full ROM, no lymphadenopathy and no JVD Thyroid: thyroid normal Lymphatic: no lymphadenopathy noted Resp: Effort & Inspection: normal respiratory effort and able to speak in complete sentences Auscultation: clear to auscultation bilaterally Cardio: Jugular venous distension: no JVD Rate: regular rate Rhythm: regular rhythm Heart sounds: S1 normal heart sound present and S2 normal heart sound present GI: Inspection: normal to inspection : General: Yes deferred Skin: Rashes: no rashes Wounds: no wounds Neuro: General: patient oriented x3, CN's II-XI intact bilaterally and Unable to assess gait Cranial nerves: Yes CN's II-XII intact bilaterally and Yes Equal, round and reactive pupils present Cognition (Neuro): normal cognition Speech: normal speech Gait exam (Neuro): Unable to assess gait Motor exam (neuro): 5/5 motor strength present throughout Sensory Exam: No Sensory deficit (Neuro) Extrem: General: normal to inspection, full ROM, no joint enlargement and no pedal edema Objective Data Vital Signs Vital Signs: Vital Signs - 24 hr 12/17/22 14:00 12/17/22 20:53 12/17/22 21:17 Temperature 98.4 F 97.7 F Pulse Rate 77 65 78 Respiratory Rate 20 20 Blood Pressure 170/90 H 153/63 H Pulse Oximetry 99 98 Oxygen Deliv
[2022-12-18] MEDS: FERROUS SULFATE 324 MG TABLET PO (12:42)
[2022-12-18] MEDS: ASPIRIN 81 MG ENTERIC TABLET PO (12:46)
[2022-12-18 13:00] LABS: Glucose Point of Care 121 mg/dl (65-105)
[2022-12-18 14:00] VITALS: BP 167/66; PULSE 90; RESP 16; TEMP 36.7; O2SAT 99
[2022-12-18 17:53] LABS: Glucose Point of Care 134 mg/dl (65-105)
[2022-12-18 20:28] VITALS: BP 165/75; PULSE 76; RESP 20; TEMP 36.4; O2SAT 99
[2022-12-18 21:35] VITALS: PULSE 80
[2022-12-18 21:44] LABS: Glucose Point of Care 90 mg/dl (65-105)
[2022-12-19 05:24] VITALS: BP 141/69; PULSE 72; RESP 18; TEMP 36.6; O2SAT 97
[2022-12-19] MEDS: SULFAMETHOXAZOLE/TRIMETHOPRIM 800/160 MG DS TABLET 1 TAB PO ×2 (05:43→17:05)
[2022-12-19] MEDS: LEVOTHYROXINE SODIUM 112 MCG TABLET PO (05:43)
[2022-12-19] MEDS: APIXABAN 2.5 MG TABLET PO (09:25)
[2022-12-19] MEDS: LOSARTAN POTASSIUM 25 MG TABLET PO (09:26)
[2022-12-19] MEDS: PRAVASTATIN SODIUM 10 MG TABLET PO (09:26)
[2022-12-19] MEDS: ISOSORBIDE MONONITRATE 30 MG TAB.ER.24H PO (09:26)
[2022-12-19] MEDS: MAGNESIUM OXIDE 400 MG TABLET PO (09:26)
[2022-12-19] MEDS: SPIRONOLACTONE 25 MG TABLET PO (09:26)
[2022-12-19] MEDS: PANTOPRAZOLE 40 MG TABLET PO (09:26)
[2022-12-19] MEDS: LOPERAMIDE HCL 2 MG CAPSULE PO ×3 (09:27→17:05)
[2022-12-19 09:31] VITALS: BP 163/63; PULSE 71
[2022-12-19] MEDS: carvediloL 3.125 MG TABLET PO ×2 (09:31→19:42)
[2022-12-19 09:38] LABS: Glucose Point of Care 103 mg/dl (65-105)
[2022-12-19] MEDS: LIDOCAINE 5% PATCH 1 PATCH TRANSDERM (09:44)
--- NOTE | 2022-12-19 11:52 | PM.IMPN ---
Progress Note: A&P Assessment and Plan (1) Acute UTI: Code(s): N39.0 - Urinary tract infection, site not specified Status: Acute Assessment and Plan: Admit to regular medical floor Patient started on Rocephin Await cultures Supportive care (2) Physical deconditioning: Code(s): R53.81 - Other malaise Status: Acute Assessment and Plan: PT OT consult (3) Diabetes mellitus: Code(s): E11.9 - Type 2 diabetes mellitus without complications Status: Acute Assessment and Plan: Continue home meds Continue to monitor (4) Coronary artery disease: Qualifiers: Coronary Disease-Associated Artery/Lesion type: unspecified vessel or lesion type [place] vs. transplanted heart: unspecified whether [place] or transplanted heart Associated angina: without angina Qualified Code(s): I25.10 - Atherosclerotic heart disease of [place] coronary artery without angina pectoris Code(s): I25.10 - Atherosclerotic heart disease of [place] coronary artery without angina pectoris Status: Chronic Assessment and Plan: Chest pain-free Continue home meds (5) Atrial flutter: Code(s): I48.92 - Unspecified atrial flutter Status: Acute Assessment and Plan: Rate control and anticoagulated (6) Hyperlipidemia associated with type 2 diabetes mellitus: Code(s): E11.69 - Type 2 diabetes mellitus with other specified complication; E78.5 - Hyperlipidemia, unspecified Status: Chronic Assessment and Plan: Statin on hold (7) CAD (coronary artery disease), autologous vein bypass graft: Code(s): I25.810 - Atherosclerosis of coronary artery bypass graft(s) without angina pectoris Status: Acute Assessment and Plan: Chest pain-free (8) Lumbar stenosis: Code(s): M48.061 - Spinal stenosis, lumbar region without neurogenic claudication Status: Acute Assessment and Plan: Conservative management Subjective Date/time seen: 12/19/22 11:52 No new complaint Exam Narrative: Laying in a stretcher Const: General: comfortable, no acute distress, well developed, alert, awake, average body habitus and underweight Nutritional Appearance: average body habitus and underweight Orientation/consciousness: patient oriented x3 Other: Patient ill looking HENMT: Head: normal to inspection, normocephalic and atraumatic Ears: hearing grossly normal bilaterally Face/Nose/Sinus: normal facial exam Face and sinus: normal facial exam Eyes: General: appearance normal, both eyes and all related structures Pupils: Equal, round and reactive pupils present EOM: EOMs intact bilaterally Neck: Neck: full ROM, no lymphadenopathy and no JVD Thyroid: thyroid normal Lymphatic: no lymphadenopathy noted Resp: Effort & Inspection: normal respiratory effort and able to speak in complete sentences Auscultation: clear to auscultation bilaterally Cardio: Jugular venous distension: no JVD Rate: regular rate Rhythm: regular rhythm Heart sounds: S1 normal heart sound present and S2 normal heart sound present GI: Inspection: normal to inspection : General: Yes deferred Skin: Rashes: no rashes Wounds: no wounds Neuro: General: patient oriented x3, CN's II-XI intact bilaterally and Unable to assess gait Cranial nerves: Yes CN's II-XII intact bilaterally and Yes Equal, round and reactive pupils present Cognition (Neuro): normal cognition Speech: normal speech Gait exam (Neuro): Unable to assess gait Motor exam (neuro): 5/5 motor strength present throughout Sensory Exam: No Sensory deficit (Neuro) Extrem: General: normal to inspection, full ROM, no joint enlargement and no pedal edema Objective Data Vital Signs Vital Signs: Vital Signs - 24 hr 12/18/22 14:00 12/18/22 20:28 12/18/22 21:35 Temperature 98.0 F 97.6 F Pulse Rate 90 76 80 Respiratory Rate 16 20 Blood Pressure 167/66 H 165/75 H Pulse Oximetry 99 99 Oxygen De
[2022-12-19 12:04] LABS: Glucose Point of Care 160 mg/dl (65-105)
[2022-12-19] MEDS: FERROUS SULFATE 324 MG TABLET PO (12:30)
[2022-12-19] MEDS: ASPIRIN 81 MG ENTERIC TABLET PO (12:30)
[2022-12-19 14:11] VITALS: BP 134/67; PULSE 74; RESP 18; TEMP 36.9; O2SAT 100
--- NOTE | 2022-12-19 15:39 | PCOTNOTE ---
D/C pt. from OT services as pt. has returned to baseline function
[2022-12-19] MEDS: INSULIN HUMAN ISOPHAN/REGULAR 70/30 (*BKC) 100 UNITS/ML 10 UNITS SUB-Q (17:13)
[2022-12-19 17:14] LABS: Glucose Point of Care 189 mg/dl (65-105)
[2022-12-19 19:42] VITALS: PULSE 84
[2022-12-19 21:10] VITALS: BP 153/71; PULSE 77; RESP 16; TEMP 36.5; O2SAT 100
[2022-12-20 04:51] VITALS: BP 165/79; PULSE 77; RESP 16; TEMP 36.8; O2SAT 100
[2022-12-20] MEDS: SULFAMETHOXAZOLE/TRIMETHOPRIM 800/160 MG DS TABLET 1 TAB PO (06:04)
[2022-12-20] MEDS: LEVOTHYROXINE SODIUM 112 MCG TABLET PO (06:04)
[2022-12-20 08:29] LABS: Glucose Point of Care 102 mg/dl (65-105)
[2022-12-20] MEDS: ISOSORBIDE MONONITRATE 30 MG TAB.ER.24H PO (08:37)
[2022-12-20] MEDS: LIDOCAINE 5% PATCH 1 PATCH TRANSDERM (08:37)
[2022-12-20] MEDS: APIXABAN 2.5 MG TABLET PO (08:37)
[2022-12-20] MEDS: PANTOPRAZOLE 40 MG TABLET PO (08:37)
[2022-12-20] MEDS: SPIRONOLACTONE 25 MG TABLET PO (08:37)
[2022-12-20] MEDS: MAGNESIUM OXIDE 400 MG TABLET PO (08:37)
[2022-12-20] MEDS: LOSARTAN POTASSIUM 25 MG TABLET PO (08:37)
[2022-12-20 08:38] VITALS: PULSE 84
[2022-12-20] MEDS: PRAVASTATIN SODIUM 10 MG TABLET PO (08:38)
[2022-12-20] MEDS: carvediloL 3.125 MG TABLET PO (08:38)
[2022-12-20] MEDS: LOPERAMIDE HCL 2 MG CAPSULE PO ×2 (08:44→12:25)
--- NOTE | 2022-12-20 11:30 | PM.IMPN ---
Progress Note: A&P Assessment and Plan (1) Acute UTI: Code(s): N39.0 - Urinary tract infection, site not specified Status: Acute Assessment and Plan: Admit to regular medical floor Patient started on Rocephin Await cultures Supportive care (2) Physical deconditioning: Code(s): R53.81 - Other malaise Status: Acute Assessment and Plan: PT OT consult (3) Diabetes mellitus: Code(s): E11.9 - Type 2 diabetes mellitus without complications Status: Acute Assessment and Plan: Continue home meds Continue to monitor (4) Coronary artery disease: Qualifiers: Coronary Disease-Associated Artery/Lesion type: unspecified vessel or lesion type [place] vs. transplanted heart: unspecified whether [place] or transplanted heart Associated angina: without angina Qualified Code(s): I25.10 - Atherosclerotic heart disease of [place] coronary artery without angina pectoris Code(s): I25.10 - Atherosclerotic heart disease of [place] coronary artery without angina pectoris Status: Chronic Assessment and Plan: Chest pain-free Continue home meds (5) Atrial flutter: Code(s): I48.92 - Unspecified atrial flutter Status: Acute Assessment and Plan: Rate control and anticoagulated (6) Hyperlipidemia associated with type 2 diabetes mellitus: Code(s): E11.69 - Type 2 diabetes mellitus with other specified complication; E78.5 - Hyperlipidemia, unspecified Status: Chronic Assessment and Plan: Statin on hold (7) CAD (coronary artery disease), autologous vein bypass graft: Code(s): I25.810 - Atherosclerosis of coronary artery bypass graft(s) without angina pectoris Status: Acute Assessment and Plan: Chest pain-free (8) Lumbar stenosis: Code(s): M48.061 - Spinal stenosis, lumbar region without neurogenic claudication Status: Acute Assessment and Plan: Conservative management Subjective Date/time seen: 12/20/22 11:30 No new complaints Exam Narrative: Laying in a stretcher Const: General: comfortable, no acute distress, well developed, alert, awake, average body habitus and underweight Nutritional Appearance: average body habitus and underweight Orientation/consciousness: patient oriented x3 Other: Patient ill looking HENMT: Head: normal to inspection, normocephalic and atraumatic Ears: hearing grossly normal bilaterally Face/Nose/Sinus: normal facial exam Face and sinus: normal facial exam Eyes: General: appearance normal, both eyes and all related structures Pupils: Equal, round and reactive pupils present EOM: EOMs intact bilaterally Neck: Neck: full ROM, no lymphadenopathy and no JVD Thyroid: thyroid normal Lymphatic: no lymphadenopathy noted Resp: Effort & Inspection: normal respiratory effort and able to speak in complete sentences Auscultation: clear to auscultation bilaterally Cardio: Jugular venous distension: no JVD Rate: regular rate Rhythm: regular rhythm Heart sounds: S1 normal heart sound present and S2 normal heart sound present GI: Inspection: normal to inspection : General: Yes deferred Skin: Rashes: no rashes Wounds: no wounds Neuro: General: patient oriented x3, CN's II-XI intact bilaterally and Unable to assess gait Cranial nerves: Yes CN's II-XII intact bilaterally and Yes Equal, round and reactive pupils present Cognition (Neuro): normal cognition Speech: normal speech Gait exam (Neuro): Unable to assess gait Motor exam (neuro): 5/5 motor strength present throughout Sensory Exam: No Sensory deficit (Neuro) Extrem: General: normal to inspection, full ROM, no joint enlargement and no pedal edema Objective Data Vital Signs Vital Signs: Vital Signs - 24 hr 12/19/22 14:11 12/19/22 19:42 12/19/22 20:00 Temperature 98.4 F Pulse Rate 74 84 Respiratory Rate 18 Blood Pressure 134/67 Pulse Oximetry 100 Oxygen Delivery Room Air
--- NOTE | 2022-12-20 11:39 | PM.IMPN ---
Progress Note: A&P Assessment and Plan (1) Acute UTI: Code(s): N39.0 - Urinary tract infection, site not specified Status: Acute Assessment and Plan: Admit to regular medical floor Patient started on Rocephin Await cultures Supportive care Awaiting placement options. (2) Physical deconditioning: Code(s): R53.81 - Other malaise Status: Acute Assessment and Plan: PT OT consult (3) Diabetes mellitus: Code(s): E11.9 - Type 2 diabetes mellitus without complications Status: Acute Assessment and Plan: Continue home meds Continue to monitor (4) Coronary artery disease: Qualifiers: Coronary Disease-Associated Artery/Lesion type: unspecified vessel or lesion type [place] vs. transplanted heart: unspecified whether [place] or transplanted heart Associated angina: without angina Qualified Code(s): I25.10 - Atherosclerotic heart disease of [place] coronary artery without angina pectoris Code(s): I25.10 - Atherosclerotic heart disease of [place] coronary artery without angina pectoris Status: Chronic Assessment and Plan: Chest pain-free Continue home meds (5) Atrial flutter: Code(s): I48.92 - Unspecified atrial flutter Status: Acute Assessment and Plan: Rate control and anticoagulated (6) Hyperlipidemia associated with type 2 diabetes mellitus: Code(s): E11.69 - Type 2 diabetes mellitus with other specified complication; E78.5 - Hyperlipidemia, unspecified Status: Chronic Assessment and Plan: Statin on hold (7) CAD (coronary artery disease), autologous vein bypass graft: Code(s): I25.810 - Atherosclerosis of coronary artery bypass graft(s) without angina pectoris Status: Acute Assessment and Plan: Chest pain-free (8) Lumbar stenosis: Code(s): M48.061 - Spinal stenosis, lumbar region without neurogenic claudication Status: Acute Assessment and Plan: Conservative management Plan Discussed with case management. Patient denied for skilled placement. Await plan after discussion with Case Management family Subjective Date/time seen: 12/20/22 11:39 Patient is in good spirits answers questions appropriately. PT notes noted. Patient was denied for [facility] placement. Exam Narrative: Laying in a stretcher Const: General: comfortable, no acute distress, well developed, alert, awake, average body habitus and underweight Nutritional Appearance: average body habitus and underweight Orientation/consciousness: patient oriented x3 Other: Patient ill looking HENMT: Head: normal to inspection, normocephalic and atraumatic Ears: hearing grossly normal bilaterally Face/Nose/Sinus: normal facial exam Face and sinus: normal facial exam Eyes: General: appearance normal, both eyes and all related structures Pupils: Equal, round and reactive pupils present EOM: EOMs intact bilaterally Neck: Neck: full ROM, no lymphadenopathy and no JVD Thyroid: thyroid normal Lymphatic: no lymphadenopathy noted Resp: Effort & Inspection: normal respiratory effort and able to speak in complete sentences Auscultation: clear to auscultation bilaterally Cardio: Jugular venous distension: no JVD Rate: regular rate Rhythm: regular rhythm Heart sounds: S1 normal heart sound present and S2 normal heart sound present GI: Inspection: normal to inspection : General: Yes deferred Skin: Rashes: no rashes Wounds: no wounds Neuro: General: patient oriented x3, CN's II-XI intact bilaterally and Unable to assess gait Cranial nerves: Yes CN's II-XII intact bilaterally and Yes Equal, round and reactive pupils present Cognition (Neuro): normal cognition Speech: normal speech Gait exam (Neuro): Unable to assess gait Motor exam (neuro): 5/5 motor strength present throughout Sensory Exam: No Sensory deficit (Neuro) Extrem: General: normal to inspection, full ROM, no joint enlargement a
--- NOTE | 2022-12-20 12:23 | PCNWS ---
Weekly nutritional screen. Patient is tolerating current diet with adequate intake. No weight loss reported. No nutritional needs at this time.
[2022-12-20 12:25] LABS: Glucose Point of Care 170 mg/dl (65-105)
[2022-12-20] MEDS: FERROUS SULFATE 324 MG TABLET PO (12:25)
[2022-12-20] MEDS: ASPIRIN 81 MG ENTERIC TABLET PO (12:25)
--- NOTE | 2022-12-20 13:56 | PM.DS ---
DS: Admitting Diagnosis Discharge Date 12/20/22 Admitting Diagnosis uti weakness DS: Discharge Diagnosis Discharge Diagnosis (1) Acute UTI: Code(s): N39.0 - Urinary tract infection, site not specified Status: Acute Assessment and Plan: Admit to regular medical floor Patient started on Rocephin Await cultures Supportive care Awaiting placement options. (2) Physical deconditioning: Code(s): R53.81 - Other malaise Status: Acute Assessment and Plan: PT OT consult (3) Diabetes mellitus: Code(s): E11.9 - Type 2 diabetes mellitus without complications Status: Acute Assessment and Plan: Continue home meds Continue to monitor (4) Coronary artery disease: Qualifiers: Coronary Disease-Associated Artery/Lesion type: unspecified vessel or lesion type [place] vs. transplanted heart: unspecified whether [place] or transplanted heart Associated angina: without angina Qualified Code(s): I25.10 - Atherosclerotic heart disease of [place] coronary artery without angina pectoris Code(s): I25.10 - Atherosclerotic heart disease of [place] coronary artery without angina pectoris Status: Chronic Assessment and Plan: Chest pain-free Continue home meds (5) Atrial flutter: Code(s): I48.92 - Unspecified atrial flutter Status: Acute Assessment and Plan: Rate control and anticoagulated (6) Hyperlipidemia associated with type 2 diabetes mellitus: Code(s): E11.69 - Type 2 diabetes mellitus with other specified complication; E78.5 - Hyperlipidemia, unspecified Status: Chronic Assessment and Plan: Statin on hold (7) CAD (coronary artery disease), autologous vein bypass graft: Code(s): I25.810 - Atherosclerosis of coronary artery bypass graft(s) without angina pectoris Status: Acute Assessment and Plan: Chest pain-free (8) Lumbar stenosis: Code(s): M48.061 - Spinal stenosis, lumbar region without neurogenic claudication Status: Acute Assessment and Plan: Conservative management Plan Discussed with case management. Patient denied for skilled placement. Await plan after discussion with Case Management family DS: Summary Hospital Course Hospital Course: admitted for uti and weakness, snf denied - patient will be dc home 5 days of bactrim Time Spent with Patient Time attestation: Total time spent providing and/or coordinating discharge services: Exam Narrative: Laying in a stretcher Const: General: comfortable, no acute distress, well developed, alert, awake, average body habitus and underweight Nutritional Appearance: average body habitus and underweight Orientation/consciousness: patient oriented x3 Other: Patient ill looking HENMT: Head: normal to inspection, normocephalic and atraumatic Ears: hearing grossly normal bilaterally Face/Nose/Sinus: normal facial exam Face and sinus: normal facial exam Eyes: General: appearance normal, both eyes and all related structures Pupils: Equal, round and reactive pupils present EOM: EOMs intact bilaterally Neck: Neck: full ROM, no lymphadenopathy and no JVD Thyroid: thyroid normal Lymphatic: no lymphadenopathy noted Resp: Effort & Inspection: normal respiratory effort and able to speak in complete sentences Auscultation: clear to auscultation bilaterally Cardio: Jugular venous distension: no JVD Rate: regular rate Rhythm: regular rhythm Heart sounds: S1 normal heart sound present and S2 normal heart sound present GI: Inspection: normal to inspection : General: Yes deferred Skin: Rashes: no rashes Wounds: no wounds Neuro: General: patient oriented x3, CN's II-XI intact bilaterally and Unable to assess gait Cranial nerves: Yes CN's II-XII intact bilaterally and Yes Equal, round and reactive pupils present Cognition (Neuro): normal cognition Speech: normal speech Gait exam (Neuro): Unable to assess gait Motor
[2022-12-20 14:00] VITALS: BP 149/75; PULSE 70; RESP 18; TEMP 36.8; O2SAT 100
== END 2022-12-20 18:00 ==
LOC: ANHED 22:03 → ANH3MED 23:09
PROVIDERS: Admitting Provider Internal Medicine; Emergency Provider Emergency Medicine; Visit Provider Chiropractor
DX: N39.0 Urinary tract infection, site not specified (principal); B96.4 Proteus (mirabilis) (morganii) as the cause of diseases classified elsewhere; R53.81 Other malaise; R41.0 Disorientation, unspecified; I13.0 Hypertensive heart and chronic kidney disease with heart failure and stage 1 through stage 4 chronic kidney disease, or unspecified chronic kidney disease; E11.22 Type 2 diabetes mellitus with diabetic chronic kidney disease; N18.30 Chronic kidney disease, stage 3 unspecified; D63.1 Anemia in chronic kidney disease; I50.9 Heart failure, unspecified; Z20.822 Contact with and (suspected) exposure to COVID-19; I25.10 Atherosclerotic heart disease of native coronary artery without angina pectoris; Z95.1 Presence of aortocoronary bypass graft; I48.92 Unspecified atrial flutter; E78.5 Hyperlipidemia, unspecified; E03.9 Hypothyroidism, unspecified; E11.42 Type 2 diabetes mellitus with diabetic polyneuropathy; E87.1 Hypo-osmolality and hyponatremia; M48.061 Spinal stenosis, lumbar region without neurogenic claudication; Z95.0 Presence of cardiac pacemaker; Z86.73 Personal history of transient ischemic attack (TIA), and cerebral infarction without residual deficits; Z79.82 Long term (current) use of aspirin; Z79.4 Long term (current) use of insulin; Z79.899 Other long term (current) drug therapy
CPT/HCPCS: 36415; 70450; 71045; 72170; 80048; 80053; 81001; 82550; 82948; 83690; 83735; 84443; 85025; 87077; 87086; 87186; 87637; 93005; 97110; 97116; 97161; 97165; 97530; 97535; 99285; A9270; G0378; J0696; J1815; J2405; J7030; J7120

== ENCOUNTER 2023-01-01 14:55 | Emergency (ER) | payer MEDICARE, SELFPAY ==
[2023-01-01 14:55] VITALS: BP 141/96; PULSE 61; RESP 18; TEMP 36.5; O2SAT 100
--- NOTE | 2023-01-01 15:26 | ECG_ITS ---
Measurements Intervals [place] Rate: 60 P: 255 FL: 253 QRS: -72 QRSD: 213 T: 97 QT: 482 QTc: 482 Interpretive Statements ELECTRONIC AV SEQUENTIALLY PACED RATE ABNORMAL RHYTHM ECG COMPARED TO ECG 12/13/2022 20:11:31 NO SIGNIFICANT CHANGES Electronically Signed On 01-02-2023 7:14:28 CDT by Juma Cline M.D.
--- NOTE | 2023-01-01 15:30 | ED.GENADULT ---
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 She has numerous drug allergies including to most/all pain medications including codeine, hydrocodone, oxycodone, diclofenac, tramadol although she states that she took a tramadol pill yesterday. She has had a positive [facility] screen (08/17/2022). She has been seen in this ER numerous times for musculoskeletal pain, in the hips and lower back, along with UTI's. She also had imaging of the lumbar spine and pelvis (see results below). This revealed severe osteoarthritis and severe spondylosis with severe spinal stenosis. She lives at home with her , who is having a difficult time caring for her. She was admitted here 08/2022 for possible residential placement, but was able to be discharged home after treatment.?On 09/23/2022, she had a CT of the lumbar spine (4th CT in 4 months of the L spine) and was seen by neurosurgery: their recommendation is that the CT showed moderate central lumbar stenosis at L4-5, recommended no surgical intervention at this time and continued physical therapy. She now returns due to left lower back pain radiating down the left leg consistent with left-sided sciatica. She is able to ambulate with a walker but is having a hard time doing that and needs significant assistance. Her assists her with putting her shoes and socks and clothes. They live at home. No falls or other complaints today. She did take a TRAMADOl tablet yesterday (per patient and her ). She has seen her PCP 2 days ago for the same complaints, and he referred her to a pain specialist but she has not seen them yet. Yesterday, she had transient chest pain, that resolved spontaneously. She did take 3 nitro's. No chest pain or dyspnea today. No fevers. Related Data Home Medications Medication Instructions Recorded Confirmed levothyroxine 112 mcg capsule 112 mcg PO QAM 10/21/20 01/01/23 potassium chloride 10 mEq 10 meq PO DAILY 04/15/21 01/01/23 tablet,extended release aspirin 81 mg tablet,delayed 81 mg PO DAILY 05/10/21 01/01/23 release (Adult Low Dose Aspirin) ferrous sulfate 325 mg (65 mg 325 mg PO QAM 11/02/21 01/01/23 iron) tablet (FeroSul) insulin NPH-regular 70-30 U-100 10 unit subcut BID 11/02/21 01/01/23 insulin 100 unit/mL subcutaneous pen (Humulin 70/30 U-100 KwikPen) mesalamine 1.2 gram tablet,delayed 4.8 g PO QAM 06/16/22 01/01/23 release (Lialda) pravastatin 10 mg tablet 10 mg PO DAILY 06/30/22 01/01/23 apixaban 2.5 mg tablet (Eliquis) 2.5 mg PO DAILY 09/15/22 01/01/23 furosemide 40 mg tablet 40 mg PO DAILY 09/15/22 01/01/23 isosorbide mononitrate 30 mg 30 mg PO DAILY 09/15/22 01/01/23 tablet,extended release 24 hr lactase 9,000 unit chewable tablet 27,000 unit PO TID 09/15/22 01/01/23 (Lactaid Fast Act) spironolactone 25 mg tablet 25 mg PO DAILY 09/15/22 01/01/23 acetaminophen 500 mg tablet 1,000 mg PO TID PRN Pain 12/13/22 01/01/23 pantoprazole 40 mg tablet,delayed 40 mg PO DAILY 12/13/22 01/01/23 release (Protonix) Allergies Allergy/AdvReac Type Severity Reaction Status Date / Time adhesive tape Allergy Severe BLISTERS Verified 12/13/22 11:51 amiodarone Allergy Severe N/V, Verified 12/13/22 11:51 HEADACHE, HOSPITALIZED atorvastatin Allergy Severe SWELLING Verified 12/13/22 11:51 clindamycin Allergy Severe TACHYCARDIA Verified 12/13/22 11:51 gabapentin Allergy Severe CHF Verified 12/13/22 11:51 gemfibrozil Allergy Severe ELEVATED Verified 12/13/22 11:51 CHOLESTEROL nifedipine Allergy Severe SWELLING Verified 12/13/22 11:51 norfloxacin Allergy Severe SWELLING Verified
[2023-01-01] MEDS: CYCLOBENZAPRINE HCL 5 MG TABLET PO (15:42)
[2023-01-01] MEDS: ACETAMINOPHEN 325 MG TABLET 650 MG PO (15:42)
[2023-01-01] MEDS: fentaNYL CITRATE INJ (*CRX) 100 MCG/2 ML VIAL 50 MCG IM (15:43)
[2023-01-01 16:03] LABS: Basophils Absolute Auto 0.01 K/mm3 (0.00-0.10); Basophils Percent Auto 0.2 % (0.0-1.0); Hematocrit 34.7 % (35.0-42.0); Hemoglobin 11.7 g/dL (11.7-13.8); Immature Granulocyte Absolute 0.02 K/mm3 (0.00-0.00); Immature Granulocyte Percent A 0.4 % (0.0-0.0); Lymphocytes Absolute Auto 0.75 K/mm3 (1.10-4.50); Lymphocytes Percent Auto 15.7 % (18.0-42.0); Mean Corpuscular HGB Conc 33.7 g/dL (32.0-36.0); Mean Corpuscular Hemoglobin 31.2 pg (27.0-31.0); Mean Corpuscular Volume 92.5 fL (78.0-102.0); Mean Platelet Volume 9.8 fl (9.2-11.8); Monocytes Absolute Auto 0.33 K/mm3 (0.10-0.90); Monocytes Percent Auto 6.9 % (2.0-11.0); Neutrophils Absolute Auto 3.7 K/mm3 (1.7-7.2); Neutrophils Percent Auto 76.8 % (50.0-70.0); Platelet Count Result 179 K/mm3 (150-420); Red Blood Count 3.75 M/mm3 (4.20-5.40); Red Cell Distribution Width 13.2 % (11.6-14.4); White Blood Count 4.8 K/mm3 (4.8-10.8)
[2023-01-01 16:19] LABS: Alanine Aminotransferase 30 U/L (14-59); Albumin Level 3.7 g/dL (3.4-5.0); Alkaline Phosphatase 99 U/L (46-116); Anion Gap 9 mmol/L (8-16); Aspartate Amino Transferase 23 U/L (15-37); Bilirubin,Total 0.3 mg/dL (0.00-1.00); Blood Urea Nitrogen 22 mg/dL (7-18); Calcium 8.9 mg/dL (8.5-10.1); Carbon Dioxide 27 mmol/L (21-32); Chloride 101 mmol/L (98-108); Estimated CRCL calculation 25 ml/min; Estimated Glomerular Filt Rate 48; Glucose 138 mg/dL (70-99); Osmolality Calculated 289 mOsm/kg (285-295); Potassium 4.1 mmol/L (3.5-5.1); Sodium 137 mmol/L (136-145); Total Protein 7.3 g/dL (6.4-8.2); Troponin I 12.3 ng/L (0.00-60.4)
[2023-01-01 16:55] VITALS: PULSE 60; RESP 18; O2SAT 97
== END 2023-01-01 17:00 | disposition home or self-care (01) ==
PROVIDERS: Emergency Provider Emergency Medicine; PCP Internal Medicine
DX: M54.42 Lumbago with sciatica, left side (principal); M25.552 Pain in left hip; I25.10 Atherosclerotic heart disease of native coronary artery without angina pectoris; E78.5 Hyperlipidemia, unspecified; Z86.73 Personal history of transient ischemic attack (TIA), and cerebral infarction without residual deficits; E03.9 Hypothyroidism, unspecified; I13.0 Hypertensive heart and chronic kidney disease with heart failure and stage 1 through stage 4 chronic kidney disease, or unspecified chronic kidney disease; I50.9 Heart failure, unspecified; N18.30 Chronic kidney disease, stage 3 unspecified; E11.22 Type 2 diabetes mellitus with diabetic chronic kidney disease
CPT/HCPCS: 36415; 80053; 84484; 85025; 93005; 96372; 99283; A9270; J3010

== ENCOUNTER 2023-01-16 13:41 | Emergency (ER) | payer MEDICARE, SELFPAY ==
[2023-01-16] VITALS (9 sets, daily range): BP systolic 140–168; BP diastolic 57–71; PULSE 62–80; RESP 12–21; TEMP 36.2–37; O2SAT 95–98
--- NOTE | ~2023-01-16 | XR_ITS ---
XR chest 1V portable 01/16/2023 14:02 Indication: Chest pain and shortness of breath Procedure: AP portable chest Comparison: Comparison to multiple prior studies sequentially, with oldest reviewed study dated 02/2022. Findings: Status post median sternotomy for CABG. Bipolar pacemaker leads are present, position uncha nged. Heart size normal. No focal air space disease, pulmonary edema, pleural effusion or suspected p neumothorax. Impression: 1: No acute cardiopulmonary disease. Reviewed, dictated and finalized at location B. Impression: 1: No acute cardiopulmonary disease.
--- NOTE | 2023-01-16 13:44 | ECG_ITS ---
Measurements Intervals [place] Rate: 78 P: 73 NM: 254 QRS: -73 QRSD: 194 T: 107 QT: 436 QTc: 498 Interpretive Statements ATRIAL SENSE- ELECTRONIC VENTRICULAR PACEMAKER BASELINE ARTIFACT- I, II, AVR, AVL, AVF NO FURTHER INTERPRETATION IS POSSIBLE ATYPICAL ECG COMPARED TO ECG 01/01/2023 15:39:26 NO SIGNIFICANT CHANGES Electronically Signed On 01-16-2023 13:54:23 CDT by Jim Herr D.O.
--- NOTE | 2023-01-16 13:47 | ED.CHESTPAIN ---
HPI - Chest Pain General Chief Complaint: Chest Pain Stated Complaint: chest pain Time Seen by Provider: 01/16/23 13:45 Source: patient Mode of arrival: ambulatory Limitations: no limitations History of Present Illness MD complaint: chest heaviness (associated with tachycardia, now resolved) Onset (ago): hour(s) (last night, better now) Timing of current episode: now resolved Prior episodes: Yes Onset: during rest Pain radiation: none Severity: mild Quality: tightness Relieving factors: other (spontaneously resolved) Exacerbating factors: nothing Treatment prior to arrival: none Related Data Home Medications Medication Instructions Recorded Confirmed levothyroxine 112 mcg capsule 112 mcg PO QAM 10/21/20 01/01/23 potassium chloride 10 mEq 10 meq PO DAILY 04/15/21 01/01/23 tablet,extended release aspirin 81 mg tablet,delayed 81 mg PO DAILY 05/10/21 01/01/23 release (Adult Low Dose Aspirin) ferrous sulfate 325 mg (65 mg 325 mg PO QAM 11/02/21 01/01/23 iron) tablet (FeroSul) insulin NPH-regular 70-30 U-100 10 unit subcut BID 11/02/21 01/01/23 insulin 100 unit/mL subcutaneous pen (Humulin 70/30 U-100 KwikPen) mesalamine 1.2 gram tablet,delayed 4.8 g PO QAM 06/16/22 01/01/23 release (Lialda) pravastatin 10 mg tablet 10 mg PO DAILY 06/30/22 01/01/23 furosemide 40 mg tablet 40 mg PO DAILY 09/15/22 01/01/23 isosorbide mononitrate 30 mg 30 mg PO DAILY 09/15/22 01/01/23 tablet,extended release 24 hr lactase 9,000 unit chewable tablet 27,000 unit PO TID 09/15/22 01/01/23 (Lactaid Fast Act) spironolactone 25 mg tablet 25 mg PO DAILY 09/15/22 01/01/23 acetaminophen 500 mg tablet 1,000 mg PO TID PRN Pain 12/13/22 01/01/23 pantoprazole 40 mg tablet,delayed 40 mg PO DAILY 12/13/22 01/01/23 release (Protonix) Allergies Allergy/AdvReac Type Severity Reaction Status Date / Time adhesive tape Allergy Severe BLISTERS Verified 12/13/22 11:51 amiodarone Allergy Severe N/V, Verified 12/13/22 11:51 HEADACHE, HOSPITALIZED atorvastatin Allergy Severe SWELLING Verified 12/13/22 11:51 clindamycin Allergy Severe TACHYCARDIA Verified 12/13/22 11:51 gabapentin Allergy Severe CHF Verified 12/13/22 11:51 gemfibrozil Allergy Severe ELEVATED Verified 12/13/22 11:51 CHOLESTEROL nifedipine Allergy Severe SWELLING Verified 12/13/22 11:51 norfloxacin Allergy Severe SWELLING Verified 12/13/22 11:51 adhesive Allergy Intermediate Unknown Verified 12/13/22 11:51 chlorpheniramine [Ornade] Allergy Intermediate Unknown Verified 12/13/22 11:51 doxycycline Allergy Intermediate Unknown Verified 12/13/22 11:51 erythromycin base Allergy Intermediate Unknown Verified 12/13/22 11:51 flurbiprofen [Ansaid] Allergy Intermediate Unknown Verified 12/13/22 11:51 tetracycline Allergy Intermediate Unconscious Verified 12/13/22 11:51 tramadol [Ultram] Allergy Intermediate Unknown Verified 12/13/22 11:51 cephalexin Allergy Mild Rash Verified 12/13/22 11:51 ciprofloxacin Allergy Unknown Unknown Verified 12/13/22 11:51 diclofenac Allergy Unknown Unknown Verified 12/13/22 11:51 hydroxyzine Allergy Unknown Unknown Verified 12/13/22 11:51 Penicillins Allergy Unknown Unknown Verified 12/13/22 11:51 propoxyphene Allergy Unknown Unknown Verified 12/13/22 11:51 terfenadine Allergy Unknown Unknown Verified 12/13/22 11:51 lactose Allergy Abdominal Verified 12/13/22 11:51 Pain butorphanol AdvReac Severe RESTLESSNES Verified 12/13/22 11:51 S cerivastatin AdvReac Severe ABDOMINAL Verified 12/13/22 11:51 PAIN, H/A dexamethasone AdvReac Severe IRRITATED Verified 12/13/22 11:51 EYES duloxetine AdvReac Severe H/A Verified 12/13/22 11:51 enalaprilat AdvReac Severe COUGH Verified 12/13/22 11:51 guaifenesin AdvReac Severe NERVOUSNESS Verified 12/13/22 11:51 hydrocodone AdvReac Severe N/V Verified 12/13/22 11:51 isosorbide AdvReac Severe H/A Verified 12/13/22 11:51 levofloxacin AdvReac Severe VOMITING Verified 12/13/22 11:51 meperidine AdvReac Severe H/
[2023-01-16 14:02] LABS: Basophils Absolute Auto 0.01 K/mm3 (0.00-0.10); Basophils Percent Auto 0.1 % (0.0-1.0); Hematocrit 33.3 % (35.0-42.0); Hemoglobin 10.7 g/dL (11.7-13.8); Immature Granulocyte Absolute 0.02 K/mm3 (0.00-0.00); Immature Granulocyte Percent A 0.3 % (0.0-0.0); Mean Corpuscular HGB Conc 32.1 g/dL (32.0-36.0); Mean Corpuscular Hemoglobin 30.2 pg (27.0-31.0); Mean Corpuscular Volume 94.1 fL (78.0-102.0); Neutrophils Absolute Auto 6.1 K/mm3 (1.7-7.2); Neutrophils Percent Auto 85.6 % (50.0-70.0); Platelet Count Result 210 K/mm3 (150-420); Red Blood Count 3.54 M/mm3 (4.20-5.40); Red Cell Distribution Width 13.2 % (11.6-14.4); White Blood Count 7.1 K/mm3 (4.8-10.8)
[2023-01-16 14:18] LABS: Alanine Aminotransferase 39 U/L (14-59); Albumin Level 2.8 g/dL (3.4-5.0); Alkaline Phosphatase 90 U/L (46-116); Anion Gap 10 mmol/L (8-16); Aspartate Amino Transferase 33 U/L (15-37); Bilirubin,Total 0.4 mg/dL (0.00-1.00); Blood Urea Nitrogen 13 mg/dL (7-18); Calcium 8.5 mg/dL (8.5-10.1); Carbon Dioxide 25 mmol/L (21-32); Chloride 100 mmol/L (98-108); Estimated Glomerular Filt Rate 49; Glucose 303 mg/dL (70-99); Magnesium 1.3 mg/dL (1.8-2.4); Osmolality Calculated 291 mOsm/kg (285-295); Potassium 3.5 mmol/L (3.5-5.1); Sodium 135 mmol/L (136-145); Troponin I 11.6 ng/L (0.00-60.4)
== END 2023-01-16 15:18 | disposition home or self-care (01) ==
PROVIDERS: Emergency Provider Emergency Medicine; PCP Obstetrics & Gynecology
DX: R00.0 Tachycardia, unspecified (principal); I13.0 Hypertensive heart and chronic kidney disease with heart failure and stage 1 through stage 4 chronic kidney disease, or unspecified chronic kidney disease; E11.22 Type 2 diabetes mellitus with diabetic chronic kidney disease; N18.30 Chronic kidney disease, stage 3 unspecified; E03.9 Hypothyroidism, unspecified; E78.5 Hyperlipidemia, unspecified
CPT/HCPCS: 36415; 71045; 80053; 83735; 84484; 85025; 93005; 99284

== ENCOUNTER 2023-02-04 08:45 | Emergency (ER) | payer MEDICARE, SELFPAY ==
--- NOTE | 2023-02-04 08:55 | ED.FEMALEGU ---
HPI - Female Genitourinary General Chief complaint: Urogenital-Female Stated complaint: urinary Time Seen by Provider: 02/04/23 08:49 Source: patient Mode of arrival: ambulatory Limitations: no limitations History of Present Illness HPI Narrative: patient here today with urinary burning with no suprapubic tenderness no flank pain no fever chills no weakness no nausea or vomiting no chest pain or shortness of breath. MD elicited complaint: dysuria Related Data Home Medications Medication Instructions Recorded Confirmed levothyroxine 112 mcg capsule 112 mcg PO QAM 10/21/20 02/04/23 aspirin 81 mg tablet,delayed 81 mg PO DAILY 05/10/21 02/04/23 release (Adult Low Dose Aspirin) insulin NPH-regular 70-30 U-100 10 unit subcut BID 11/02/21 02/04/23 insulin 100 unit/mL subcutaneous pen (Humulin 70/30 U-100 KwikPen) mesalamine 1.2 gram tablet,delayed 4.8 g PO QAM 06/16/22 02/04/23 release (Lialda) furosemide 40 mg tablet 40 mg PO DAILY 09/15/22 02/04/23 isosorbide mononitrate 30 mg 30 mg PO DAILY 09/15/22 02/04/23 tablet,extended release 24 hr spironolactone 25 mg tablet 25 mg PO DAILY 09/15/22 02/04/23 acetaminophen 500 mg tablet 1,000 mg PO TID PRN Pain 12/13/22 02/04/23 duloxetine 30 mg capsule,delayed 30 mg PO HS 01/16/23 02/04/23 release lidocaine 5 % topical patch 1 patch topical DAILY 01/16/23 02/04/23 nitroglycerin 0.4 mg sublingual 0.4 mg sublingual Q5MIN PRN Chest 01/16/23 02/04/23 tablet Pain pantoprazole 40 mg tablet,delayed 40 mg PO DAILY 01/16/23 02/04/23 release potassium chloride 10 mEq 10 meq PO DAILY 01/16/23 02/04/23 tablet,extended release pravastatin 10 mg tablet 10 mg PO DAILY 01/16/23 02/04/23 tramadol 50 mg tablet 10 mg PO BID PRN Pain 01/16/23 02/04/23 Allergies Allergy/AdvReac Type Severity Reaction Status Date / Time adhesive tape Allergy Severe BLISTERS Verified 02/04/23 08:57 amiodarone Allergy Severe N/V, Verified 02/04/23 08:57 HEADACHE, HOSPITALIZED atorvastatin Allergy Severe SWELLING Verified 02/04/23 08:57 clindamycin Allergy Severe TACHYCARDIA Verified 02/04/23 08:57 gabapentin Allergy Severe CHF Verified 02/04/23 08:57 gemfibrozil Allergy Severe ELEVATED Verified 02/04/23 08:57 CHOLESTEROL nifedipine Allergy Severe SWELLING Verified 02/04/23 08:57 norfloxacin Allergy Severe SWELLING Verified 02/04/23 08:57 adhesive Allergy Intermediate Unknown Verified 02/04/23 08:57 chlorpheniramine [Ornade] Allergy Intermediate Unknown Verified 02/04/23 08:57 doxycycline Allergy Intermediate Unknown Verified 02/04/23 08:57 erythromycin base Allergy Intermediate Unknown Verified 02/04/23 08:57 flurbiprofen [Ansaid] Allergy Intermediate Unknown Verified 02/04/23 08:57 tetracycline Allergy Intermediate Unconscious Verified 02/04/23 08:57 tramadol [Ultram] Allergy Intermediate Unknown Verified 02/04/23 08:57 cephalexin Allergy Mild Rash Verified 02/04/23 08:57 ciprofloxacin Allergy Unknown Unknown Verified 02/04/23 08:57 diclofenac Allergy Unknown Unknown Verified 02/04/23 08:57 hydroxyzine Allergy Unknown Unknown Verified 02/04/23 08:57 Penicillins Allergy Unknown Unknown Verified 02/04/23 08:57 propoxyphene Allergy Unknown Unknown Verified 02/04/23 08:57 terfenadine Allergy Unknown Unknown Verified 02/04/23 08:57 lactose Allergy Abdominal Verified 02/04/23 08:57 Pain butorphanol AdvReac Severe RESTLESSNES Verified 02/04/23 08:57 S cerivastatin AdvReac Severe ABDOMINAL Verified 02/04/23 08:57 PAIN, H/A dexamethasone AdvReac Severe IRRITATED Verified 02/04/23 08:57 EYES duloxetine AdvReac Severe H/A Verified 02/04/23 08:57 enalaprilat AdvReac Severe COUGH Verified 02/04/23 08:57 guaifenesin AdvReac Severe NERVOUSNESS Verified 02/04/23 08:57 hydrocodone AdvReac Severe N/V Verified 02/04/23 08:57 isosorbide AdvReac Severe H/A Verified 02/04/23 08:57 levofloxacin AdvReac Severe VOMITING Verified 02/04/23 08:57 meperidine AdvReac Severe H/A Verified 02/04/23 08:57 nit
[2023-02-04 08:58] VITALS: BP 186/93; PULSE 63; RESP 17; TEMP 36.9; O2SAT 100
[2023-02-04 09:02] LABS: Appearance Urine Slightly Cloudy (Clear); Bilirubin Urine Negative (Negative); Blood Urine 3+ (Negative); Color Urine Yellow (Yellow); Glucose Urine UA Negative (Negative); Ketones Urine Negative (Negative); Leukocyte Esterase Ur 3+ LEU/UL (Negative); Nitrate Urine Negative (Negative); Protein Urine 2+ (Negative); Specific Grav Ur 1.015 (1.010-1.020); Urobilinogen Urine 0.2 mg/dL (0.2-1.0)
[2023-02-04 09:06] LABS: Add Urine Microscopic? YES
[2023-02-04 09:07] LABS: Bacteria Urine 3+ /hpf; Squamous Epithelial Cell Urine Rare /hpf (Few); WBC Urine 16-20 /hpf (0-3)
[2023-02-04 09:15] VITALS: BP 207/85; PULSE 73; RESP 16; O2SAT 99
[2023-02-04] MEDS: SULFAMETHOXAZOLE/TRIMETHOPRIM 800/160 MG DS TABLET 1 TAB PO (09:20)
[2023-02-04 09:30] VITALS: BP 173/85; PULSE 75; RESP 16; O2SAT 100
[2023-02-04 09:35] VITALS: BP 173/85; PULSE 75; RESP 16; TEMP 36.9; O2SAT 100
--- NOTE | 2023-02-06 17:14 | PC.NURSE ---
Patient contacted, made aware she will need IV antibiotics to treat UTI and would need to come to ER/any ER for treatment. Verbalized understanding
--- NOTE | 2023-02-06 19:11 | ED.GENADULT ---
HPI - General Adult General Chief complaint: Urogenital-Female Stated complaint: urinary Time Seen by Provider: 02/04/23 08:49 Source: patient Mode of arrival: ambulatory Limitations: no limitations History of Present Illness HPI narrative: Dinorah is an 87F with a PMH of DMII, CVA, HTN, dementia, CAD, atrial flutter s/p pacemaker, HLD that presented to the ED for IV abx. She was found to have ESBL that is highly resistant to any PO abx. She is having worsening urinary frequency. Related Data Home Medications Medication Instructions Recorded Confirmed levothyroxine 112 mcg capsule 112 mcg PO QAM 10/21/20 02/06/23 aspirin 81 mg tablet,delayed 81 mg PO DAILY 05/10/21 02/06/23 release (Adult Low Dose Aspirin) insulin NPH-regular 70-30 U-100 10 unit subcut BID 11/02/21 02/06/23 insulin 100 unit/mL subcutaneous pen (Humulin 70/30 U-100 KwikPen) mesalamine 1.2 gram tablet,delayed 4.8 g PO QAM 06/16/22 02/06/23 release (Lialda) furosemide 40 mg tablet 40 mg PO DAILY 09/15/22 02/06/23 isosorbide mononitrate 30 mg 30 mg PO DAILY 09/15/22 02/06/23 tablet,extended release 24 hr spironolactone 25 mg tablet 25 mg PO DAILY 09/15/22 02/06/23 acetaminophen 500 mg tablet 1,000 mg PO TID PRN Pain 12/13/22 02/06/23 duloxetine 30 mg capsule,delayed 30 mg PO HS 01/16/23 02/06/23 release lidocaine 5 % topical patch 1 patch topical DAILY 01/16/23 02/06/23 nitroglycerin 0.4 mg sublingual 0.4 mg sublingual Q5MIN PRN Chest 01/16/23 02/06/23 tablet Pain pantoprazole 40 mg tablet,delayed 40 mg PO DAILY 01/16/23 02/06/23 release potassium chloride 10 mEq 10 meq PO DAILY 01/16/23 02/06/23 tablet,extended release pravastatin 10 mg tablet 10 mg PO DAILY 01/16/23 02/06/23 Allergies Allergy/AdvReac Type Severity Reaction Status Date / Time adhesive tape Allergy Severe BLISTERS Verified 02/04/23 08:57 amiodarone Allergy Severe N/V, Verified 02/04/23 08:57 HEADACHE, HOSPITALIZED atorvastatin Allergy Severe SWELLING Verified 02/04/23 08:57 clindamycin Allergy Severe TACHYCARDIA Verified 02/04/23 08:57 gabapentin Allergy Severe CHF Verified 02/04/23 08:57 gemfibrozil Allergy Severe ELEVATED Verified 02/04/23 08:57 CHOLESTEROL nifedipine Allergy Severe SWELLING Verified 02/04/23 08:57 norfloxacin Allergy Severe SWELLING Verified 02/04/23 08:57 adhesive Allergy Intermediate Unknown Verified 02/04/23 08:57 chlorpheniramine [Ornade] Allergy Intermediate Unknown Verified 02/04/23 08:57 doxycycline Allergy Intermediate Unknown Verified 02/04/23 08:57 erythromycin base Allergy Intermediate Unknown Verified 02/04/23 08:57 flurbiprofen [Ansaid] Allergy Intermediate Unknown Verified 02/04/23 08:57 tetracycline Allergy Intermediate Unconscious Verified 02/04/23 08:57 tramadol [Ultram] Allergy Intermediate Unknown Verified 02/04/23 08:57 ciprofloxacin Allergy Unknown Unknown Verified 02/04/23 08:57 diclofenac Allergy Unknown Unknown Verified 02/04/23 08:57 hydroxyzine Allergy Unknown Unknown Verified 02/04/23 08:57 Penicillins Allergy Unknown Unknown Verified 02/04/23 08:57 propoxyphene Allergy Unknown Unknown Verified 02/04/23 08:57 terfenadine Allergy Unknown Unknown Verified 02/04/23 08:57 lactose Allergy Abdominal Verified 02/04/23 08:57 Pain butorphanol AdvReac Severe RESTLESSNES Verified 02/04/23 08:57 S cerivastatin AdvReac Severe ABDOMINAL Verified 02/04/23 08:57 PAIN, H/A dexamethasone AdvReac Severe IRRITATED Verified 02/04/23 08:57 EYES duloxetine AdvReac Severe H/A Verified 02/04/23 08:57 enalaprilat AdvReac Severe COUGH Verified 02/04/23 08:57 guaifenesin AdvReac Severe NERVOUSNESS Verified 02/04/23 08:57 hydrocodone AdvReac Severe N/V Verified 02/04/23 08:57 isosorbide AdvReac Severe H/A Verified 02/04/23 08:57 levofloxacin AdvReac Severe VOMITING Verified 02/04/23 08:57 meperidine AdvReac Severe H/A Verified 02/04/23 08:57 oxycodone AdvReac Severe VOMITING Verified 02/04/23 08:57 phenylephrine AdvReac Severe N
== END 2023-02-04 09:35 | disposition home or self-care (01) ==
LOC: CHSED 09:22
PROVIDERS: Emergency Provider Emergency Medicine; PCP Internal Medicine
DX: N39.0 Urinary tract infection, site not specified (principal); I13.0 Hypertensive heart and chronic kidney disease with heart failure and stage 1 through stage 4 chronic kidney disease, or unspecified chronic kidney disease; I50.9 Heart failure, unspecified; E11.22 Type 2 diabetes mellitus with diabetic chronic kidney disease; N18.30 Chronic kidney disease, stage 3 unspecified; I25.10 Atherosclerotic heart disease of native coronary artery without angina pectoris; E78.5 Hyperlipidemia, unspecified; E03.9 Hypothyroidism, unspecified; I48.92 Unspecified atrial flutter; E11.40 Type 2 diabetes mellitus with diabetic neuropathy, unspecified; D64.9 Anemia, unspecified; Z95.0 Presence of cardiac pacemaker; Z86.73 Personal history of transient ischemic attack (TIA), and cerebral infarction without residual deficits; Z95.1 Presence of aortocoronary bypass graft; Z87.891 Personal history of nicotine dependence; Z79.82 Long term (current) use of aspirin; Z79.4 Long term (current) use of insulin; Z79.01 Long term (current) use of anticoagulants
CPT/HCPCS: 36415; 81001; 87077; 87086; 87088; 87186; 99285; A9270

== ENCOUNTER 2023-02-06 19:06 | Inpatient (IN) | payer MEDICARE, SELFPAY ==
--- NOTE | 2023-02-04 08:49 | ER_ITS ---
HPI - General Adult General Chief complaint: Urogenital-Female Stated complaint: urinary Time Seen by Provider: 02/04/23 08:49 Source: patient Mode of arrival: ambulatory Limitations: no limitations History of Present Illness HPI narrative: Dinorah is an 87F with a PMH of DMII, CVA, HTN, dementia, CAD, atrial flutter s/p pacemaker, HLD that presented to the ED for IV abx. She was found to have ESBL that is highly resistant to any PO abx. She is having worsening urinary frequency. Related Data Home Medications Medication Instructions Recorded Confirmed levothyroxine 112 mcg capsule 112 mcg PO QAM 10/21/20 02/06/23 aspirin 81 mg tablet,delayed 81 mg PO DAILY 05/10/21 02/06/23 release (Adult Low Dose Aspirin) insulin NPH-regular 70-30 U-100 10 unit subcut BID 11/02/21 02/06/23 insulin 100 unit/mL subcutaneous pen (Humulin 70/30 U-100 KwikPen) mesalamine 1.2 gram tablet,delayed 4.8 g PO QAM 06/16/22 02/06/23 release (Lialda) furosemide 40 mg tablet 40 mg PO DAILY 09/15/22 02/06/23 isosorbide mononitrate 30 mg 30 mg PO DAILY 09/15/22 02/06/23 tablet,extended release 24 hr spironolactone 25 mg tablet 25 mg PO DAILY 09/15/22 02/06/23 acetaminophen 500 mg tablet 1,000 mg PO TID PRN Pain 12/13/22 02/06/23 duloxetine 30 mg capsule,delayed 30 mg PO HS 01/16/23 02/06/23 release lidocaine 5 % topical patch 1 patch topical DAILY 01/16/23 02/06/23 nitroglycerin 0.4 mg sublingual 0.4 mg sublingual Q5MIN PRN Chest 01/16/23 02/06/23 tablet Pain pantoprazole 40 mg tablet,delayed 40 mg PO DAILY 01/16/23 02/06/23 release potassium chloride 10 mEq 10 meq PO DAILY 01/16/23 02/06/23 tablet,extended release pravastatin 10 mg tablet 10 mg PO DAILY 01/16/23 02/06/23 Allergies Allergy/AdvReac Type Severity Reaction Status Date / Time adhesive tape Allergy Severe BLISTERS Verified 02/04/23 08:57 amiodarone Allergy Severe N/V, Verified 02/04/23 08:57 HEADACHE, HOSPITALIZED atorvastatin Allergy Severe SWELLING Verified 02/04/23 08:57 clindamycin Allergy Severe TACHYCARDIA Verified 02/04/23 08:57 gabapentin Allergy Severe CHF Verified 02/04/23 08:57 gemfibrozil Allergy Severe ELEVATED Verified 02/04/23 08:57 CHOLESTEROL nifedipine Allergy Severe SWELLING Verified 02/04/23 08:57 norfloxacin Allergy Severe SWELLING Verified 02/04/23 08:57 adhesive Allergy Intermediate Unknown Verified 02/04/23 08:57 chlorpheniramine [Ornade] Allergy Intermediate Unknown Verified 02/04/23 08:57 doxycycline Allergy Intermediate Unknown Verified 02/04/23 08:57 erythromycin base Allergy Intermediate Unknown Verified 02/04/23 08:57 flurbiprofen [Ansaid] Allergy Intermediate Unknown Verified 02/04/23 08:57 tetracycline Allergy Intermediate Unconscious Verified 02/04/23 08:57 tramadol [Ultram] Allergy Intermediate Unknown Verified 02/04/23 08:57 ciprofloxacin Allergy Unknown Unknown Verified 02/04/23 08:57 diclofenac Allergy Unknown Unknown Verified 02/04/23 08:57 hydroxyzine Allergy Unknown Unknown Verified 02/04/23 08:57 Penicillins Allergy Unknown Unknown Verified 02/04/23 08:57 propoxyphene Allergy Unknown Unknown Verified 02/04/23 08:57 terfenadine Allergy Unknown Unknown Verified 02/04/23 08:57 lactose Allergy Abdominal Verified 02/04/23 08:57 Pain butorphanol AdvReac Severe RESTLESSNES Verified 02/04/23 08:57 S cerivastatin AdvReac Severe ABDOMINAL Verified 02/04/23 08:57 PAIN, H/A dexamethasone AdvReac Severe IRRITATED Verified 02/04/23 08:57
[2023-02-06 19:07] VITALS: BP 160/86; PULSE 71; RESP 20; TEMP 36.9; O2SAT 98
[2023-02-06 19:48] VITALS: BP 140/89; PULSE 80; RESP 16; TEMP 37.2; O2SAT 95
[2023-02-06 19:54] LABS: Anion Gap 10 mmol/L (8-16); Blood Urea Nitrogen 11 mg/dL (7-18); Calcium 8.3 mg/dL (8.5-10.1); Carbon Dioxide 26 mmol/L (21-32); Chloride 100 mmol/L (98-108); Estimated CRCL calculation 28 ml/min; Estimated Glomerular Filt Rate 54; Glucose 173 mg/dL (70-99); Osmolality Calculated 285 mOsm/kg (285-295); Potassium 3.1 mmol/L (3.5-5.1); Sodium 136 mmol/L (136-145)
[2023-02-06 19:55] LABS: Basophils Absolute Auto 0.04 K/mm3 (0.00-0.10); Basophils Percent Auto 0.6 % (0.0-1.0); Eosinophils Absolute Auto 0.17 K/mm3 (0.02-0.50); Eosinophils Percent Auto 2.7 % (1.0-6.0); Hematocrit 30.8 % (35.0-42.0); Hemoglobin 10.1 g/dL (11.7-13.8); Immature Granulocyte Absolute 0.03 K/mm3 (0.00-0.00); Immature Granulocyte Percent A 0.5 % (0.0-0.0); Lymphocytes Percent Auto 14.2 % (18.0-42.0); Mean Corpuscular HGB Conc 32.8 g/dL (32.0-36.0); Mean Corpuscular Hemoglobin 30.4 pg (27.0-31.0); Mean Corpuscular Volume 92.8 fL (78.0-102.0); Mean Platelet Volume 9.8 fl (9.2-11.8); Monocytes Absolute Auto 0.48 K/mm3 (0.10-0.90); Monocytes Percent Auto 7.6 % (2.0-11.0); Neutrophils Absolute Auto 4.7 K/mm3 (1.7-7.2); Neutrophils Percent Auto 74.4 % (50.0-70.0); Platelet Count Result 291 K/mm3 (150-420); Red Blood Count 3.32 M/mm3 (4.20-5.40); Red Cell Distribution Width 14.7 % (11.6-14.4); White Blood Count 6.3 K/mm3 (4.8-10.8)
[2023-02-06 19:57] LABS: Add Urine Microscopic? YES; Appearance Urine Clear (Clear); Bacteria Urine 4+ /hpf; Bilirubin Urine Negative (Negative); Blood Urine 3+ (Negative); Budding Yeast Urine Present /hpf; Color Urine Light Yellow (Yellow); Glucose Urine UA Negative (Negative); Ketones Urine Negative (Negative); Leukocyte Esterase Ur 3+ LEU/UL (Negative); Nitrate Urine Negative (Negative); Protein Urine 1+ (Negative); RBC Urine >75 /hpf (0-2); Specific Grav Ur 1.015 (1.010-1.020); Squamous Epithelial Cell Urine None seen /hpf (Few); Urobilinogen Urine 0.2 mg/dL (0.2-1.0); WBC Urine 31-50 /hpf (0-3)
[2023-02-06 21:08] VITALS: BP 142/89; PULSE 72; RESP 20; O2SAT 96
[2023-02-06 21:45] VITALS: BP 160/72; PULSE 73; RESP 16; TEMP 36.6; O2SAT 97
[2023-02-06 21:46] VITALS: BMI 17.6
[2023-02-06 22:00] VITALS: BP 180/60; PULSE 80; RESP 16; TEMP 36.5; O2SAT 99
--- NOTE | 2023-02-06 22:14 | ADMGEN ---
This patient, Dinorah Thorpe, was admitted to 2nd Floor Room 204-2. Patient/family oriented to hospital policies and general routines including ID bracelet, bed and alarms, visiting hours, pain management, procedures, bathroom and other care routines, personal items, smoking policy, room service/diet, and visiting hours. Tay has brought her water and depends, these are the only ones she can use due to allergies per pt. Home meds in cassette in med room Information on how to activate the Rapid Response Team has been discussed. Patient/Family are encouraged to report perceived risks to care and to ask questions if they do not understand what they are told or what they should do.
[2023-02-07] VITALS: BP 176/94; PULSE 94; RESP 20; TEMP 35.9; O2SAT 97
--- NOTE | 2023-02-07 00:01 | PC.NURSE ---
Pt up to the bathroom with assist of one. Pt voided and returned to bed with assist of one.
--- NOTE | 2023-02-07 02:01 | PC.NURSE ---
Pt up to the bathroom with assist of one and voided. Pt back to bed with assist of one.
--- NOTE | 2023-02-07 05:45 | PC.NURSE ---
Pt up to the bathroom with the walker and standby assist of one. Pt voided and returned to bed with her walker and standby assist of one.
[2023-02-07 05:49] LABS: Basophils Absolute Auto 0.03 K/mm3 (0.00-0.10); Basophils Percent Auto 0.6 % (0.0-1.0); Hemoglobin 9.7 g/dL (11.7-13.8); Immature Granulocyte Absolute 0.02 K/mm3 (0.00-0.00); Immature Granulocyte Percent A 0.4 % (0.0-0.0); Lymphocytes Absolute Auto 0.75 K/mm3 (1.10-4.50); Mean Corpuscular HGB Conc 31.3 g/dL (32.0-36.0); Mean Corpuscular Volume 92.5 fL (78.0-102.0); Monocytes Absolute Auto 0.37 K/mm3 (0.10-0.90); Monocytes Percent Auto 7.4 % (2.0-11.0); Neutrophils Absolute Auto 3.8 K/mm3 (1.7-7.2); Neutrophils Percent Auto 76.6 % (50.0-70.0); Platelet Count Result 229 K/mm3 (150-420); Red Blood Count 3.35 M/mm3 (4.20-5.40); Red Cell Distribution Width 14.7 % (11.6-14.4)
[2023-02-07 06:08] LABS: Anion Gap 8 mmol/L (8-16); Blood Urea Nitrogen 10 mg/dL (7-18); Carbon Dioxide 29 mmol/L (21-32); Chloride 104 mmol/L (98-108); Estimated CRCL calculation 31 ml/min; Estimated Glomerular Filt Rate > 60; Glucose 117 mg/dL (70-99); Osmolality Calculated 292 mOsm/kg (285-295); Potassium 2.9 mmol/L (3.5-5.1); Sodium 141 mmol/L (136-145)
[2023-02-07 06:21] LABS: Calcium 8.5 mg/dL (8.5-10.1)
[2023-02-07] MEDS: LEVOTHYROXINE SODIUM 112 MCG TABLET PO (06:30)
--- NOTE | 2023-02-07 06:30 | PC.NURSE ---
Pt given synthroid 112 mcg PO as ordered.
[2023-02-07 08:00] VITALS: BP 174/60; PULSE 65; RESP 14; TEMP 36.4; O2SAT 99
--- NOTE | 2023-02-07 08:24 | PHA.ABX.ID ---
Pharmacy ID Consult - Stewardship Interventions Type of Interventions: Duration Pharmacy ID Note: Subjective Pharmacy was consulted by Rell Bernal regarding infectious diseases for Dinorah Thorpe. Dinorah Thorpe is a 87 year old F with concerns regarding a UTI due to ESBL-producing pathogen. Background The patient is currently receiving ceftazidime IV 1g q24h. The patient's PMH includes many drug allergies and noted urinary frequency per 02/06 ER note. Additionally, 02/04 UCX shows growth of ESBL-producing E coli. Assessment/Recommendation/Discussion Spoke with consulting provider and provider states this is simple cystitis. Given the ESBL nature of this pathogen, the IDSA [facility] 1.0 guidelines note that compared to ceftazidime, ertapenem is likely a more preferable agent in this patients case. Provider agreed to this and a 5-7 day course so the duration was placed on the order. Provider to look into the possibility of OPAT. Will sign off at this time. Please consider calling / reconsultation should anything additional be needed. Thank you for the interesting consult. Joshua Allen, PharmD Infectious Disease/Antimicrobial Stewardship Pharmacist 02/07/23; 0824 WBC 5.0 K/mm3 (4.8-10.8) 02/07/23 05:24 Creatinine 0.85 mg/dL (0.55-1.02) 02/07/23 05:24 Estim Creat Clear Calc 31 ml/min 02/07/23 05:24
[2023-02-07] MEDS: PANTOPRAZOLE 40 MG TABLET PO (08:25)
[2023-02-07] MEDS: LOSARTAN POTASSIUM 25 MG TABLET PO (08:25)
[2023-02-07 08:26] VITALS: PULSE 87
[2023-02-07] MEDS: PRAVASTATIN SODIUM 10 MG TABLET PO (08:26)
[2023-02-07] MEDS: POTASSIUM CHLORIDE 20 MEQ TABLET PO (08:26)
[2023-02-07] MEDS: FUROSEMIDE 40 MG TABLET PO (08:26)
[2023-02-07] MEDS: carvediloL 3.125 MG TABLET PO ×2 (08:26→20:29)
[2023-02-07] MEDS: ISOSORBIDE MONONITRATE 30 MG TAB.ER.24H PO (08:27)
[2023-02-07] MEDS: APIXABAN 2.5 MG TABLET BY MOUTH ×2 (08:27→20:29)
[2023-02-07] MEDS: LIDOCAINE 5% PATCH 1 PATCH TOPICAL (08:27)
[2023-02-07] MEDS: SPIRONOLACTONE 25 MG TABLET PO (08:27)
[2023-02-07] MEDS: MAGNESIUM OXIDE 400 MG TABLET PO (08:27)
[2023-02-07] MEDS: KCL 20 MEQ/SW 100 ML 100 ML 50 MEQ IVPB ×2 (08:42→11:53)
--- NOTE | 2023-02-07 09:53 | PM.IMHP ---
H&P: HPI History of Present Illness Date/Time: 02/07/23 09:53 Chief Complaint: urinary frequency, cultures ESBL Narrative: this is a 87-year-old female who is at home who is coming in with the positive urine cultures that is resistant to a lot of medications patient is positive to ESBL his. Patient had some increased frequency she has remained afebrile patient has an extensive past medical history with a lot of allergies noted. Patient was started on septal as I came and I have spoken to Infectious Disease pharmacist we have switched patient to our depend on IV she needs 5 days for should get daily this morning patient's potassium was 2.9 which will be replenished with IV potassium. Patient's sodium is 141, BUN is 10, creatinine 0.85, patient's glucose is 117, WBC is 5.0, 8 hemoglobin 9.7 platelets 229 we have physical therapy assess patient we will encourage fluids patient will need to be admitted for an additional day in we will consider doing daily outpatient for 3 days and she needs 5 days of antibiotics per recommendation of Infeciouns Disease pharmacist. Review of Systems Review of Systems: urine frequency, positive cultures ESBL All systems reviewed & are unremarkable except as noted in HPI and below PMFSH Past Medical History Medical History Abdominal pain Cardiomegaly Chemical conjunctivitis of both eyes Chronic anemia Chronic anticoagulation 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trial flutter. CKD (chronic kidney disease) stage 3, GFR 30-59 ml/min Closed head injury Congestive heart failure Contusion of right shoulder Coronary artery disease Diabetes type 2, controlled Dysphagia Elevated antinuclear antibody (ARAMIS) level Elevated liver enzymes Fall (~07/22/19) History of colon polyps History of esophageal dilatation History of pacemaker History of TIA (transient ischemic attack) and stroke Hyperlipidemia associated with type 2 diabetes mellitus Hypertension Hypertension associated with stage 3 chronic kidney disease due to type 2 diabetes mellitus Hyponatremia Hypothyroidism Lumbar stenosis Paroxysmal atrial flutter Peripheral sensory neuropathy due to type 2 diabetes mellitus Rectal bleeding Schatzki's ring of distal esophagus Trigger finger, right middle finger Surgical History Surgical History History of appendectomy History of arthroplasty of right knee History of cholecystectomy History of colonoscopy with polypectomy Last colonoscopy in 01/2020 with descending colon polyp biopsied and showing ulcerated tubulovillous adenoma with high-grade dysplasia. History of mitral valve repair 4 vessel CABG and Mitral Valve Repair at [facility] in 1995. History of phacoemulsification of cataract of both eyes with intraocular lens implantation History of total abdominal hysterectomy and bilateral salpingo-oophorectomy S/P CABG (coronary artery bypass graft) 4 vessel CABG and Mitral Valve Repair at [facility] in 1995. Family History Family History Mother Carcinoma of colon Hypertension Father Family history of coronary artery disease Heart disease Hypertension Father Family history of coronary artery disease Social History Social History Social History: the patient lives with her who is the durable power cashier payments received for healthcare. She has 1 son. 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 She is a former smoker. She stated she does not use alcohol marijuana or illicit drugs. Code status full code Smoking status: Never smoker Second hand tobacco smoke exposure: No Alcohol intake: never Substance use: never Substance use type: does not use Last use: years ago; Lack of Transportation: No Lack of Food: Never True Cindaen
[2023-02-07] MEDS: SODIUM CHLORIDE 0.9% IV 1,000 ML 100 ML (10:01)
[2023-02-07] MEDS: ACETAMINOPHEN 325 MG TABLET 650 MG PO ×2 (10:05→20:29)
[2023-02-07] MEDS: CYCLOBENZAPRINE HCL 5 MG TABLET PO ×2 (11:21→20:29)
[2023-02-07] MEDS: DICYCLOMINE HCL 10 MG CAPSULE PO ×2 (11:21→17:04)
[2023-02-07] MEDS: ERTAPENEM 1 GM/NS 50 ML 1 GM/50 ML BAG IVPB (11:21)
[2023-02-07] MEDS: ASPIRIN 81 MG ENTERIC TABLET PO (11:21)
[2023-02-07 11:31] LABS: Glucose Point of Care 177 mg/dl (65-105)
[2023-02-07 16:00] VITALS: BP 167/78; PULSE 73; RESP 14; TEMP 36.4; O2SAT 99
[2023-02-07] MEDS: LACTASE 3,000 UNIT TABLET 3000 UNIT PO (17:05)
--- NOTE | 2023-02-07 17:09 | PC.NURSE ---
Patient continues to voice numerous complaints. Now states she can only eat homemade bread. Stated she also has to have the 3 white Pills to eat with her bread. Medication is lactaid. Stated effects of pill only last 30 minutes-not long enough to eat. Patient did not have any milk products. Patient also claims to be allergic to water and can only drink sugar free Propel. Patients also complaining food not cut up-but specifically told dietary she just picked at it Numerous complaints
[2023-02-07 17:10] LABS: Glucose Point of Care 147 mg/dl (65-105)
[2023-02-07] MEDS: DULoxetine HCL 30 MG CAPSULE.DR PO (20:28)
[2023-02-07 20:46] LABS: Glucose Point of Care 145 mg/dl (65-105)
[2023-02-07 23:15] VITALS: BP 147/58; PULSE 68; RESP 18; TEMP 36.8; O2SAT 97
[2023-02-08 05:33] LABS: Hematocrit 30.7 % (35.0-42.0); Hemoglobin 9.5 g/dL (11.7-13.8); Mean Corpuscular HGB Conc 30.9 g/dL (32.0-36.0); Mean Corpuscular Hemoglobin 29.1 pg (27.0-31.0); Mean Corpuscular Volume 94.2 fL (78.0-102.0); Mean Platelet Volume 10.3 fl (9.2-11.8); Platelet Count Result 210 K/mm3 (150-420); Red Blood Count 3.26 M/mm3 (4.20-5.40); Red Cell Distribution Width 14.8 % (11.6-14.4)
[2023-02-08] MEDS: LEVOTHYROXINE SODIUM 112 MCG TABLET PO (05:38)
[2023-02-08 05:42] LABS: Anion Gap 8 mmol/L (8-16); Blood Urea Nitrogen 15 mg/dL (7-18); Calcium 8.4 mg/dL (8.5-10.1); Carbon Dioxide 29 mmol/L (21-32); Chloride 101 mmol/L (98-108); Estimated CRCL calculation 28 ml/min; Estimated Glomerular Filt Rate 57; Glucose 164 mg/dL (70-99); Osmolality Calculated 290 mOsm/kg (285-295); Potassium 3.8 mmol/L (3.5-5.1); Sodium 138 mmol/L (136-145)
[2023-02-08 08:00] VITALS: BP 181/99; PULSE 91; RESP 17; TEMP 35.8; O2SAT 97
[2023-02-08] MEDS: LACTASE 3,000 UNIT TABLET 3000 UNIT PO ×3 (08:24→16:59)
--- NOTE | 2023-02-08 08:30 | PC.NURSE ---
Pt complaining of nausea at this time. Pt did have one episode of diarrhea. States she needs to wait a bit on her morning meds.
[2023-02-08 10:09] VITALS: PULSE 88
[2023-02-08] MEDS: FUROSEMIDE 40 MG TABLET PO (10:09)
[2023-02-08] MEDS: PRAVASTATIN SODIUM 10 MG TABLET PO (10:09)
[2023-02-08] MEDS: APIXABAN 2.5 MG TABLET BY MOUTH ×2 (10:09→20:51)
[2023-02-08] MEDS: POTASSIUM CHLORIDE 20 MEQ TABLET PO (10:09)
[2023-02-08] MEDS: MAGNESIUM OXIDE 400 MG TABLET PO (10:09)
[2023-02-08] MEDS: LIDOCAINE 5% PATCH 1 PATCH TOPICAL (10:09)
[2023-02-08] MEDS: LOSARTAN POTASSIUM 25 MG TABLET PO (10:09)
[2023-02-08] MEDS: ISOSORBIDE MONONITRATE 30 MG TAB.ER.24H PO (10:09)
[2023-02-08] MEDS: carvediloL 3.125 MG TABLET PO ×2 (10:09→20:51)
[2023-02-08] MEDS: ERTAPENEM 1 GM/NS 50 ML 1 GM/50 ML BAG IVPB (10:10)
[2023-02-08] MEDS: PANTOPRAZOLE 40 MG TABLET PO (10:10)
[2023-02-08] MEDS: SPIRONOLACTONE 25 MG TABLET PO (10:10)
--- NOTE | 2023-02-08 10:16 | WPDPN ---
Progress Note: A&P Assessment and Plan (1) Acute UTI: Code(s): N39.0 - Urinary tract infection, site not specified Status: Acute Assessment and Plan: IV ertapenem 5 days worth EBSLcultures (2) Chronic anemia: Code(s): D64.9 - Anemia, unspecified Status: Acute Assessment and Plan: stable 9.7 (3) Hypothyroidism: Qualifiers: Hypothyroidism type: unspecified Qualified Code(s): E03.9 - Hypothyroidism, unspecified Code(s): E03.9 - Hypothyroidism, unspecified Status: Acute Assessment and Plan: continue home medication (4) Hypertension: Code(s): I10 - Essential (primary) hypertension Status: Acute Assessment and Plan: monitor blood pressure Continue home medication (5) Diabetes mellitus: Code(s): E11.9 - Type 2 diabetes mellitus without complications Status: Acute Assessment and Plan: Accu-Cheks a.c. and HS Insulin sliding scale Subjective Date/time seen: 02/08/23 10:16 Interval history: Patient notes that she has nausea with diarrhea. the diarrhea is cohronic for her. She has no other complains. The patient denies SOB, CP, palpitation, extremity numbness, lightheadedness, dizziness, constipation, chills, or fever. Review of Systems Review of Systems: urine frequency, positive cultures ESBL All systems reviewed & are unremarkable except as noted in HPI and below Exam Narrative: GENERAL:ill-appearing, frail, and in no acute distress. HEAD:Normocephalic, atraumatic. EYES: PERRLA and EOMI. ENT: Nares clear, no rhinorrhea or epistaxis. Mucous membranes moist. CHEST: Clear to auscultation. No respiratory distress. HEART: Regular rate and rhythm. Normal peripheral pulses. ABDOMEN: Soft, nontender, nondistended, normal active bowel sounds. EXTREMITIES: Normal range of motion. No edema. SKIN: Warm, dry, no rash. NEURO: No focal deficits. Alert and oriented x3. occasional confusion Objective Data Vital Signs Vital Signs: Vital Signs - 24 hr 02/07/23 16:00 02/07/23 23:15 02/08/23 08:00 Temperature 36.4 C 36.8 C 35.8 C L Pulse Rate 73 68 91 Respiratory Rate 14 18 17 Blood Pressure 167/78 H 147/58 H 181/99 H Pulse Oximetry 99 97 97 Oxygen Delivery Room Air Room Air Room Air 02/08/23 10:09 Temperature Pulse Rate 88 Respiratory Rate Blood Pressure Pulse Oximetry Oxygen Delivery Intake/Output Intake/Output: Intake & Output 02/05/23 02/06/23 02/07/23 02/08/23 23:59 23:59 23:59 23:59 Intake Total 50 1700 400 Output Total 400 700 Balance 50 1300 -300 Meds/Results Medications: Active Medications Generic Name Dose Route Start Last Admin Trade Name Freq PRN Reason Stop Dose Admin Acetaminophen 650 mg 02/06/23 21:40 02/07/23 20:29 Acetaminophen 325 Mg Tablet PO 650 mg Q4H PRN Administration Mild Pain (1-3) or Fever Apixaban 2.5 mg 02/07/23 09:00 02/08/23 10:09 Apixaban 2.5 Mg Tablet BY MOUTH 2.5 mg Q12HR ARTHUR Administration Aspirin 81 mg 02/07/23 12:00 02/07/23 11:21 Aspirin 81 Mg Enteric Tablet PO 81 mg DAILY@1200 ARTHUR Administration Carvedilol 3.125 mg 02/07/23 09:00 02/08/23 10:09 Carvedilol 3.125 Mg Tablet PO 3.125 mg Q12HR ARTHUR Administration Cyclobenzaprine HCl 5 mg 02/06/23 21:02 02/07/23 20:29 Cyclobenzaprine Hcl 5 Mg Tablet PO 5 mg TID PRN Administration muscle spasm Dextrose 12.5 gm 02/07/23 09:50 Dextrose 50% 25 Gm/50 Ml Syringe IV PUSH PRN PRN Hypoglycemia Protocol Dicyclomine HCl 10 mg 02/06/23 21:02 02/07/23 17:04 Dicyclomine Hcl 10 Mg Capsule PO 10 mg TID PRN Administration abdominal discomfort Duloxetine HCl 30 mg 02/07/23 21:00 02/07/23 20:28 Duloxetine Hcl 30 Mg Capsule.Dr PO 30 mg HS ARTHUR Administration Furosemide 40 mg 02/07/23 09:00 02/08/23 10:09 Furosemide 40 Mg Tablet PO 40 mg DAILY ARTHUR Admin
[2023-02-08] MEDS: LOPERAMIDE HCL 2 MG CAPSULE PO ×4 (11:21→21:12)
[2023-02-08] MEDS: ASPIRIN 81 MG ENTERIC TABLET PO (11:21)
[2023-02-08 12:07] LABS: Glucose Point of Care 158 mg/dl (65-105)
[2023-02-08 16:00] VITALS: BP 154/55; PULSE 84; RESP 17; TEMP 36.3; O2SAT 96
[2023-02-08 17:09] LABS: Glucose Point of Care 146 mg/dl (65-105)
[2023-02-08 20:51] VITALS: PULSE 69
[2023-02-08] MEDS: DULoxetine HCL 30 MG CAPSULE.DR PO (20:51)
[2023-02-08] MEDS: traZODone HCL 50 MG TABLET PO (20:52)
[2023-02-08 21:14] LABS: Glucose Point of Care 157 mg/dl (65-105)
[2023-02-09] VITALS: BP 138/66; PULSE 69; RESP 18; TEMP 36.2; O2SAT 96
[2023-02-09 05:25] LABS: Hematocrit 32.5 % (35.0-42.0); Mean Corpuscular HGB Conc 30.8 g/dL (32.0-36.0); Mean Corpuscular Hemoglobin 29.2 pg (27.0-31.0); Mean Corpuscular Volume 94.8 fL (78.0-102.0); Mean Platelet Volume 9.5 fl (9.2-11.8); Platelet Count Result 196 K/mm3 (150-420); Red Blood Count 3.43 M/mm3 (4.20-5.40); Red Cell Distribution Width 14.8 % (11.6-14.4)
[2023-02-09] MEDS: LEVOTHYROXINE SODIUM 112 MCG TABLET PO (06:29)
[2023-02-09 07:32] LABS: Glucose Point of Care 130 mg/dl (65-105)
[2023-02-09 07:46] VITALS: BP 139/64; PULSE 69; RESP 16; TEMP 36.1; O2SAT 97
[2023-02-09] MEDS: LACTASE 3,000 UNIT TABLET 3000 UNIT PO ×3 (07:52→17:05)
[2023-02-09] MEDS: APIXABAN 2.5 MG TABLET BY MOUTH ×2 (08:05→20:53)
[2023-02-09 08:06] VITALS: PULSE 66
[2023-02-09] MEDS: PANTOPRAZOLE 40 MG TABLET PO (08:06)
[2023-02-09] MEDS: carvediloL 3.125 MG TABLET PO ×2 (08:06→20:53)
[2023-02-09] MEDS: POTASSIUM CHLORIDE 20 MEQ TABLET PO (08:06)
[2023-02-09] MEDS: LOSARTAN POTASSIUM 25 MG TABLET PO (08:07)
[2023-02-09] MEDS: SPIRONOLACTONE 25 MG TABLET PO (08:07)
[2023-02-09] MEDS: PRAVASTATIN SODIUM 10 MG TABLET PO (08:07)
[2023-02-09] MEDS: ISOSORBIDE MONONITRATE 30 MG TAB.ER.24H PO (08:07)
[2023-02-09] MEDS: MAGNESIUM OXIDE 400 MG TABLET PO (08:08)
[2023-02-09] MEDS: FUROSEMIDE 40 MG TABLET PO (08:08)
[2023-02-09] MEDS: LIDOCAINE 5% PATCH 1 PATCH TOPICAL (08:09)
[2023-02-09] MEDS: ERTAPENEM 1 GM/NS 50 ML 1 GM/50 ML BAG IVPB (08:44)
--- NOTE | 2023-02-09 09:33 | PC.NURSE ---
Patient had loose stools x 1. Registered Vascular Technologist (Rvt) offered immodium, however patient stated that if she lays really still it usually goes away. Will continue to monitor.
[2023-02-09 11:33] LABS: Glucose Point of Care 195 mg/dl (65-105)
[2023-02-09] MEDS: ASPIRIN 81 MG ENTERIC TABLET PO (12:04)
--- NOTE | 2023-02-09 12:42 | PM.IMPN ---
Progress Note: A&P Assessment and Plan (1) Acute UTI: Code(s): N39.0 - Urinary tract infection, site not specified Status: Acute Assessment and Plan: Patient has ESBL noted on culture and sensitivity. Continue with ertapenem for a total of 5 days. (2) Chronic anemia: Code(s): D64.9 - Anemia, unspecified Status: Acute Assessment and Plan: Patient's hemoglobin and hematocrit remain stable. Patient's hemoglobin is 10.0 today. (3) Hypothyroidism: Qualifiers: Hypothyroidism type: unspecified Qualified Code(s): E03.9 - Hypothyroidism, unspecified Code(s): E03.9 - Hypothyroidism, unspecified Status: Acute Assessment and Plan: Continue home medication (4) Hypertension: Qualifiers: Hypertension type: primary hypertension Qualified Code(s): I10 - Essential (primary) hypertension Code(s): I10 - Essential (primary) hypertension Status: Acute Assessment and Plan: Will continue patient's home medications and adjust medications accordingly for optimal blood pressure control. (5) Diabetes mellitus: Qualifiers: Diabetes mellitus type: type 2 Code(s): E11.9 - Type 2 diabetes mellitus without complications Status: Acute Assessment and Plan: Will continue home patient's home. Will have blood glucose monitoring before meals and at bedtime with sliding scale insulin available as needed. Subjective Date/time seen: 02/09/23 12:42 Interval history: Patient states that she is feeling very tired today but denies any other complaints at this time. Patient denies any dysuria, hematuria, frequency, or urgency at this time. Review of Systems Review of Systems: A 12 point review of systems was completed patient all pertinent positive and negative per HPI the remainder are unremarkable. All systems reviewed & are unremarkable except as noted in HPI and below Exam Narrative: Constitutional: Patient is well-nourished in no acute distress. Patient is alert and oriented x3 HEENT: Moist mucous membranes. No scleral icterus. No lymphadenopathy. Neck: No carotid bruits noted no JVD noted Lungs: Lung sounds are clear to auscultation bilaterally. No accessory muscle use. No rhonchi, rales, or wheezes noted. Cardiovascular: Apical pulse is regular rate and rhythm. S1-S2 noted, no S3 or S4 noted. No gallops, murmurs, or rubs noted. Abdomen: Soft, round, and nontender. No palpable masses. Extremities: No edema. Nontender. Skin: No rashes or lesions. Warm and dry. Skin is intact. Neurological: No focal neurological deficits. Cranial nerves II-XII grossly intact. Psychiatric: Cooperative, appropriate mood, and affect Objective Data Vital Signs Vital Signs: Vital Signs - 24 hr 02/08/23 16:00 02/08/23 20:51 02/09/23 00:00 Temperature 36.3 C L 36.2 C L Pulse Rate 84 69 69 Respiratory Rate 17 18 Blood Pressure 154/55 H 138/66 Pulse Oximetry 96 96 Oxygen Delivery Room Air Room Air 02/09/23 07:46 02/09/23 08:06 Temperature 36.1 C L Pulse Rate 69 66 Respiratory Rate 16 Blood Pressure 139/64 Pulse Oximetry 97 Oxygen Delivery Room Air Intake/Output Intake/Output: Intake & Output 02/06/23 02/07/23 02/08/23 02/09/23 23:59 23:59 23:59 23:59 Intake Total 50 1700 2000 870 Output Total 400 700 Balance 50 1300 1300 870 Meds/Results Medications: Active Medications Generic Name Dose Route Start Last Admin Trade Name Freq PRN Reason Stop Dose Admin Acetaminophen 650 mg 02/06/23 21:40 02/07/23 20:29 Acetaminophen 325 Mg Tablet PO 650 mg Q4H PRN Administration Mild Pain (1-3) or Fever Apixaban 2.5 mg 02/07/23 09:00 02/09/23 08:05 Apixaban 2.5 Mg Tablet BY MOUTH 2.5 mg Q12HR ARTHUR Administration Aspirin 81 mg 02/07/23 12:00 02/09/23 12:04 Aspirin 81 Mg Enteric Tablet PO 81 mg DAILY@1200 ARTHUR Administration Carvedilol
[2023-02-09] MEDS: LOPERAMIDE HCL 2 MG CAPSULE PO ×4 (14:40→22:31)
--- NOTE | 2023-02-09 15:39 | PC.NURSE ---
Patient had another small loose stool. District Adviser administered immodium.
[2023-02-09 16:00] VITALS: BP 119/67; PULSE 69; RESP 14; TEMP 36.3; O2SAT 96
[2023-02-09 16:44] LABS: Glucose Point of Care 163 mg/dl (65-105)
--- NOTE | 2023-02-09 18:00 | PC.NURSE ---
Patient had another loose stool. Extruding Machine Operator administered another Immodium.
[2023-02-09] MEDS: DICYCLOMINE HCL 10 MG CAPSULE PO (18:54)
[2023-02-09 20:53] VITALS: PULSE 67
[2023-02-09] MEDS: traZODone HCL 50 MG TABLET PO (20:53)
[2023-02-09] MEDS: DULoxetine HCL 30 MG CAPSULE.DR PO (20:53)
[2023-02-09 21:11] LABS: Glucose Point of Care 170 mg/dl (65-105)
[2023-02-10] VITALS: BP 142/68; PULSE 65; RESP 18; TEMP 36.4; O2SAT 96
[2023-02-10] MEDS: LEVOTHYROXINE SODIUM 112 MCG TABLET PO (06:13)
[2023-02-10 07:52] LABS: Glucose Point of Care 160 mg/dl (65-105)
[2023-02-10 08:00] VITALS: BP 120/70; PULSE 78; RESP 18; TEMP 36.6; O2SAT 97
[2023-02-10] MEDS: ISOSORBIDE MONONITRATE 30 MG TAB.ER.24H PO (08:04)
[2023-02-10] MEDS: PANTOPRAZOLE 40 MG TABLET PO (08:04)
[2023-02-10] MEDS: SPIRONOLACTONE 25 MG TABLET PO (08:05)
[2023-02-10] MEDS: LOSARTAN POTASSIUM 25 MG TABLET PO (08:05)
[2023-02-10] MEDS: APIXABAN 2.5 MG TABLET BY MOUTH ×2 (08:05→20:01)
[2023-02-10] MEDS: PRAVASTATIN SODIUM 10 MG TABLET PO (08:05)
[2023-02-10] MEDS: POTASSIUM CHLORIDE 20 MEQ TABLET PO (08:05)
[2023-02-10] MEDS: MAGNESIUM OXIDE 400 MG TABLET PO (08:05)
[2023-02-10] MEDS: FUROSEMIDE 40 MG TABLET PO (08:05)
[2023-02-10] MEDS: LACTASE 3,000 UNIT TABLET 3000 UNIT PO ×3 (08:07→16:47)
[2023-02-10] MEDS: LIDOCAINE 5% PATCH 1 PATCH TOPICAL (08:08)
[2023-02-10 08:09] VITALS: PULSE 70
[2023-02-10] MEDS: carvediloL 3.125 MG TABLET PO ×2 (08:09→20:01)
[2023-02-10] MEDS: ERTAPENEM 1 GM/NS 50 ML 1 GM/50 ML BAG IVPB (08:58)
[2023-02-10] MEDS: LOPERAMIDE HCL 2 MG CAPSULE PO ×2 (08:58→11:55)
--- NOTE | 2023-02-10 11:07 | PM.IMPN ---
Progress Note: A&P Assessment and Plan (1) Acute UTI: Code(s): N39.0 - Urinary tract infection, site not specified Status: Acute Assessment and Plan: Patient has ESBL noted on culture and sensitivity. Continue with ertapenem for a total of 5 days. Day 5 of medication will be tomorrow February 11, 2023. Plan for discharge after final dose of ertapenem. (2) Chronic anemia: Code(s): D64.9 - Anemia, unspecified Status: Acute Assessment and Plan: Patient's hemoglobin and hematocrit have remained stable throughout hospitalization. (3) Hypothyroidism: Qualifiers: Hypothyroidism type: unspecified Qualified Code(s): E03.9 - Hypothyroidism, unspecified Code(s): E03.9 - Hypothyroidism, unspecified Status: Acute Assessment and Plan: Continue patient's home medication (4) Hypertension: Qualifiers: Hypertension type: primary hypertension Qualified Code(s): I10 - Essential (primary) hypertension Code(s): I10 - Essential (primary) hypertension Status: Acute Assessment and Plan: Will continue with patient's home medications and adjust medications accordingly for optimal blood pressure control. (5) Diabetes mellitus: Qualifiers: Diabetes mellitus type: type 2 Code(s): E11.9 - Type 2 diabetes mellitus without complications Status: Acute Assessment and Plan: Will continue home patient's home. Will have blood glucose monitoring before meals and at bedtime with sliding scale insulin available as needed. Subjective Date/time seen: 02/10/23 11:07 Review of Systems Review of Systems: Patient denies any pain but states she has not been sleeping well because of the lighting in her room. Patient states that she also feels the mattress very uncomfortable for her. Patient states she is very excited to be able to go home tomorrow. Patient denies any nausea, vomiting, constipation, or diarrhea. Patient denies any chest pain, shortness of breath, lightheadedness, dizziness, syncopal, or near syncopal episodes. Exam Narrative: Constitutional: Patient is well-nourished in no acute distress. Patient is alert and oriented x3 HEENT: Moist mucous membranes. No scleral icterus. No lymphadenopathy. Neck: No carotid bruits noted no JVD noted Lungs: Lung sounds are clear to auscultation bilaterally. No accessory muscle use. No rhonchi, rales, or wheezes noted. Cardiovascular: Apical pulse is regular rate and rhythm. S1-S2 noted, no S3 or S4 noted. Patient has a 1-2/6 systolic murmur noted Abdomen: Soft, round, and nontender. No palpable masses. Extremities: No edema. Nontender. Skin: No rashes or lesions. Warm and dry. Skin is intact. Neurological: No focal neurological deficits. Cranial nerves II-XII grossly intact. Psychiatric: Cooperative, appropriate mood, and affect Objective Data Vital Signs Vital Signs: Vital Signs - 24 hr 02/09/23 16:00 02/09/23 20:53 02/10/23 00:00 Temperature 36.3 C L 36.4 C Pulse Rate 69 67 65 Respiratory Rate 14 18 Blood Pressure 119/67 142/68 H Pulse Oximetry 96 96 Oxygen Delivery Room Air Room Air 02/10/23 08:09 02/10/23 08:00 Temperature 36.6 C Pulse Rate 70 78 Respiratory Rate 18 Blood Pressure 120/70 Pulse Oximetry 97 Oxygen Delivery Room Air Intake/Output Intake/Output: Intake & Output 02/07/23 02/08/23 02/09/23 02/10/23 23:59 23:59 23:59 23:59 Intake Total 1700 2000 1860 910 Output Total 400 700 Balance 1300 1300 1860 910 Meds/Results Medications: Active Medications Generic Name Dose Route Start Last Admin Trade Name Freq PRN Reason Stop Dose Admin Acetaminophen 650 mg 02/06/23 21:40 02/07/23 20:29 Acetaminophen 325 Mg Tablet PO 650 mg Q4H PRN Administration Mild Pain (1-3) or Fever Apixaban 2.5 mg 02/07/23 09:00 02/10/23 08:05 Apixaban 2.5 Mg Tablet BY MOUTH 2.5 mg Q12HR S
[2023-02-10] MEDS: ASPIRIN 81 MG ENTERIC TABLET PO (11:55)
[2023-02-10 11:59] LABS: Glucose Point of Care 188 mg/dl (65-105)
--- NOTE | 2023-02-10 13:01 | PC.NURSE ---
has been in chair for both meals this shift. does not want to get up. claims she is just to tired or not feeling well. does ambulate to and from br with walker and gait belt. stand by assist. claims she is allergic to water and makes her deathly ill.
[2023-02-10 15:25] VITALS: BP 150/70; PULSE 82; RESP 16; TEMP 36.4; O2SAT 98
[2023-02-10 16:51] LABS: Glucose Point of Care 127 mg/dl (65-105)
[2023-02-10 20:00] VITALS: PULSE 74; RESP 16; O2SAT 98
[2023-02-10 20:01] VITALS: PULSE 74
[2023-02-10] MEDS: DULoxetine HCL 30 MG CAPSULE.DR PO (20:01)
[2023-02-10] MEDS: traZODone HCL 50 MG TABLET PO (20:01)
[2023-02-10 20:05] LABS: Glucose Point of Care 152 mg/dl (65-105)
[2023-02-11] VITALS: BP 134/66; PULSE 74; RESP 16; TEMP 36; O2SAT 95
[2023-02-11 05:01] LABS: Basophils Absolute Auto 0.02 K/mm3 (0.00-0.10); Basophils Percent Auto 0.4 % (0.0-1.0); Hematocrit 33.7 % (35.0-42.0); Hemoglobin 10.6 g/dL (11.7-13.8); Immature Granulocyte Absolute 0.01 K/mm3 (0.00-0.00); Immature Granulocyte Percent A 0.2 % (0.0-0.0); Lymphocytes Percent Auto 16.8 % (18.0-42.0); Mean Corpuscular HGB Conc 31.5 g/dL (32.0-36.0); Mean Corpuscular Hemoglobin 29.4 pg (27.0-31.0); Mean Corpuscular Volume 93.4 fL (78.0-102.0); Mean Platelet Volume 9.4 fl (9.2-11.8); Monocytes Absolute Auto 0.34 K/mm3 (0.10-0.90); Monocytes Percent Auto 7.2 % (2.0-11.0); Neutrophils Absolute Auto 3.6 K/mm3 (1.7-7.2); Neutrophils Percent Auto 75.4 % (50.0-70.0); Platelet Count Result 196 K/mm3 (150-420); Red Blood Count 3.61 M/mm3 (4.20-5.40); Red Cell Distribution Width 14.8 % (11.6-14.4); White Blood Count 4.8 K/mm3 (4.8-10.8)
[2023-02-11 05:10] LABS: Anion Gap 5 mmol/L (8-16); Blood Urea Nitrogen 24 mg/dL (7-18); Calcium 8.9 mg/dL (8.5-10.1); Carbon Dioxide 30 mmol/L (21-32); Chloride 97 mmol/L (98-108); Estimated CRCL calculation 27 ml/min; Estimated Glomerular Filt Rate 55; Glucose 150 mg/dL (70-99); Osmolality Calculated 281 mOsm/kg (285-295); Potassium 4.1 mmol/L (3.5-5.1); Sodium 132 mmol/L (136-145)
[2023-02-11] MEDS: LEVOTHYROXINE SODIUM 112 MCG TABLET PO (06:39)
[2023-02-11] MEDS: LACTASE 3,000 UNIT TABLET 3000 UNIT PO (07:56)
[2023-02-11 08:00] VITALS: BP 140/68; PULSE 74; RESP 14; TEMP 36.2; O2SAT 96
[2023-02-11 08:37] VITALS: PULSE 72
[2023-02-11] MEDS: FUROSEMIDE 40 MG TABLET PO (08:37)
[2023-02-11] MEDS: PRAVASTATIN SODIUM 10 MG TABLET PO (08:37)
[2023-02-11] MEDS: carvediloL 3.125 MG TABLET PO (08:37)
[2023-02-11] MEDS: POTASSIUM CHLORIDE 20 MEQ TABLET PO (08:37)
[2023-02-11] MEDS: SPIRONOLACTONE 25 MG TABLET PO (08:37)
[2023-02-11] MEDS: ISOSORBIDE MONONITRATE 30 MG TAB.ER.24H PO (08:37)
[2023-02-11] MEDS: LIDOCAINE 5% PATCH 1 PATCH TOPICAL (08:37)
[2023-02-11] MEDS: LOSARTAN POTASSIUM 25 MG TABLET PO (08:38)
[2023-02-11] MEDS: MAGNESIUM OXIDE 400 MG TABLET PO (08:38)
[2023-02-11] MEDS: PANTOPRAZOLE 40 MG TABLET PO (08:38)
[2023-02-11] MEDS: APIXABAN 2.5 MG TABLET BY MOUTH (08:39)
[2023-02-11] MEDS: LOPERAMIDE HCL 2 MG CAPSULE PO ×3 (08:40→10:22)
[2023-02-11] MEDS: ERTAPENEM 1 GM/NS 50 ML 1 GM/50 ML BAG IVPB (08:52)
--- NOTE | 2023-02-11 09:05 | PM.DS ---
DS: Admitting Diagnosis Discharge Date 02/11/2023 Admitting Diagnosis UTI DS: Discharge Diagnosis Discharge Diagnosis (1) Infection due to ESBL-producing Escherichia coli: Code(s): A49.8 - Other bacterial infections of unspecified site; Z16.12 - Extended spectrum beta lactamase (ESBL) resistance Status: Acute (2) Acute UTI: Code(s): N39.0 - Urinary tract infection, site not specified Status: Acute DS: Summary Hospital Course Reason for hospitalization: UTI with ESBL Hospital Course: Ms. Thorpe is an 87-year-old female who presented to the emergency room with urinary frequency and a positive culture for ESBL. Patient was placed on ertapenem and received a total of 5 days of IV antibiotics. During hospitalization patient was noted be hypokalemic and did receive potassium supplementation. Patient did well throughout hospitalization and tolerated the antibiotics any difficulty. Patient states her frequency has significantly improved. Patient has remained afebrile at this point time patient is ready for discharge home. Patient will be discharged on previous medications and no changes have been made To previous home medications. Status at Discharge Cognitive/behavioral status at discharge: Patient is in stable and improved condition upon discharge. Time Spent with Patient Time attestation: Total time spent providing and/or coordinating discharge services: 30 minutes Exam Narrative: Constitutional: Patient is well-nourished in no acute distress. Patient is alert and oriented x3 HEENT: Moist mucous membranes. No scleral icterus. No lymphadenopathy. Neck: No carotid bruits noted no JVD noted Lungs: Lung sounds are clear to auscultation bilaterally. No accessory muscle use. No rhonchi, rales, or wheezes noted. Cardiovascular: Apical pulse is regular rate and rhythm. S1-S2 noted, no S3 or S4 noted. Patient has a 1-2/6 systolic murmur noted Abdomen: Soft, round, and nontender. No palpable masses. Extremities: No edema. Nontender. Skin: No rashes or lesions. Warm and dry. Skin is intact. Neurological: No focal neurological deficits. Cranial nerves II-XII grossly intact. Psychiatric: Cooperative, appropriate mood, and affect DS: Data Data Completed and Pending Labs on day of discharge: Labs from last 24 hours 02/11/23 02/10/23 02/10/23 04:55 20:00 16:49 WBC 4.8 RBC 3.61 L Hgb 10.6 L Hct 33.7 L MCV 93.4 MCH 29.4 MCHC 31.5 L RDW 14.8 H Plt Count 196 MPV 9.4 Immature Gran % (Auto) 0.2 H Neut % (Auto) 75.4 H Lymph % (Auto) 16.8 L Coos % (Auto) 7.2 Eos % (Auto) 0.0 L Baso % (Auto) 0.4 Lymph # (Auto) 0.80 L [place]os # (Auto) 0.34 Eos # (Auto) 0.00 L Baso # (Auto) 0.02 Abs Immat Gran (auto) 0.01 H Absolute Neuts (auto) 3.6 Absolute Nucleated RBC 0.00 Nucleated RBC % 0.0 Sodium 132 L Potassium 4.1 Chloride 97 L Carbon Dioxide 30 Anion Gap 5 L BUN 24 H Creatinine 0.97 Estim Creat Clear Calc 27 Estimated GFR 55 L Glucose 150 H POC Capillary Glucose 152 H 127 H Calculated Osmolality 281 L Calcium 8.9 02/10/23 11:58 WBC RBC Hgb Hct MCV MCH MCHC RDW Plt Count MPV Immature Gran % (Auto) Neut % (Auto) Lymph % (Auto) Coos % (Auto) Eos % (Auto) Baso % (Auto) Lymph # (Auto) Coos # (Auto) Eos # (Auto) Baso # (Auto) Abs Immat Gran (auto) Absolute Neuts (auto) Absolute Nucleated RBC Nucleated RBC % Sodium Potassium Chloride Carbon Dioxide Anion Gap BUN Creatinine Estim Creat Clear Calc Estimated GFR Glucose POC Capillary Glucose 188 H Calculated Osmolality Calcium Discharge Plan Discharge Attending physician on discharge: Alec Metzger Discharging Clinician: Kay Chan Patient Disposition: Home, Self-Care Activity: as tolerated Diet: heart healthy Discharge I
--- NOTE | 2023-02-11 11:13 | PC.NURSE ---
Pt discharged to home with family. A/O x3, vss, steady gait. Discharge instructions given to pt and family. No med changes noted. Pt follow up appointments reviewed. Pt taken to the car via WC by RN.
--- NOTE | 2023-02-14 13:09 | PC.NURSE ---
Pt confused on discharge date. Readmitted on 02/13. Doesn't remember discharge on Monday.
== END 2023-02-11 11:00 | disposition home or self-care (01) | DRG 690 ==
LOC: CHSED 19:44 → CHS2ND 02-07 08:58
PROVIDERS: Nurse Practitioner; Nurse Practitioner Family; Admitting Provider Internal Medicine; Emergency Provider Family Medicine; PCP Internal Medicine; Visit Provider Nurse Practitioner Adult Health
DX: N39.0 Urinary tract infection, site not specified (principal); Z16.12 Extended spectrum beta lactamase (ESBL) resistance; I13.0 Hypertensive heart and chronic kidney disease with heart failure and stage 1 through stage 4 chronic kidney disease, or unspecified chronic kidney disease; I48.92 Unspecified atrial flutter; B96.20 Unspecified Escherichia coli [E. coli] as the cause of diseases classified elsewhere; N18.30 Chronic kidney disease, stage 3 unspecified; E11.22 Type 2 diabetes mellitus with diabetic chronic kidney disease; I50.9 Heart failure, unspecified; I25.10 Atherosclerotic heart disease of native coronary artery without angina pectoris; D64.9 Anemia, unspecified; E87.6 Hypokalemia; E78.5 Hyperlipidemia, unspecified; E03.9 Hypothyroidism, unspecified; E11.42 Type 2 diabetes mellitus with diabetic polyneuropathy; M48.061 Spinal stenosis, lumbar region without neurogenic claudication; Z86.73 Personal history of transient ischemic attack (TIA), and cerebral infarction without residual deficits; Z79.01 Long term (current) use of anticoagulants; Z86.010 Personal history of colon polyps; Z95.0 Presence of cardiac pacemaker; Z95.1 Presence of aortocoronary bypass graft
CPT/HCPCS: 36415; 80048; 81001; 82948; 85025; 85027; 87077; 87086; 87088; 87186; 96365; 96366; 96367; 99285; A9270; G0378; J0713; J1335; J3480; J7030

== ENCOUNTER 2023-02-11 14:30 | Emergency (ER) | payer MEDICARE, SELFPAY ==
[2023-02-11 14:30] VITALS: BP 96/71; PULSE 79; RESP 20; TEMP 36.1; O2SAT 99
[2023-02-11] MEDS: LOPERAMIDE HCL 2 MG CAPSULE PO (14:50)
--- NOTE | 2023-02-11 14:52 | ED.NAVMDI ---
HPI - Nausea/Vomiting/Diarrhea General Chief complaint: Nausea/Vomiting/Diarrhea Stated complaint: frequent urination and diarrhea Time Seen by Provider: 02/11/23 14:43 Source: patient and family Mode of arrival: wheelchair History of Present Illness HPI Narrative: this is an 87-year-old female that presents to the emergency room after she was discharged from the hospital 3hours ago with continued diarrhea, she has chronic diarrhea and is to follow-up with her primary care physician has been no changes her vitals are stable blood work recently performed and the patient states that she has been having this diarrhea and that has been splatter Ng as she describes it but otherwise no abdominal pain no chest pain no shortness of breath no fever chills. MD elicited complaint: diarrhea Related Data Home Medications Medication Instructions Recorded Confirmed levothyroxine 112 mcg capsule 112 mcg PO QAM 10/21/20 02/06/23 aspirin 81 mg tablet,delayed 81 mg PO DAILY 05/10/21 02/06/23 release (Adult Low Dose Aspirin) insulin NPH-regular 70-30 U-100 10 unit subcut BID 11/02/21 02/06/23 insulin 100 unit/mL subcutaneous pen (Humulin 70/30 U-100 KwikPen) mesalamine 1.2 gram tablet,delayed 4.8 g PO QAM 06/16/22 02/06/23 release (Lialda) furosemide 40 mg tablet 40 mg PO DAILY 09/15/22 02/06/23 isosorbide mononitrate 30 mg 30 mg PO DAILY 09/15/22 02/06/23 tablet,extended release 24 hr spironolactone 25 mg tablet 25 mg PO DAILY 09/15/22 02/06/23 acetaminophen 500 mg tablet 1,000 mg PO TID PRN Pain 12/13/22 02/06/23 duloxetine 30 mg capsule,delayed 30 mg PO HS 01/16/23 02/06/23 release lidocaine 5 % topical patch 1 patch topical DAILY 01/16/23 02/06/23 nitroglycerin 0.4 mg sublingual 0.4 mg sublingual Q5MIN PRN Chest 01/16/23 02/06/23 tablet Pain pantoprazole 40 mg tablet,delayed 40 mg PO DAILY 01/16/23 02/06/23 release potassium chloride 10 mEq 10 meq PO DAILY 01/16/23 02/06/23 tablet,extended release pravastatin 10 mg tablet 10 mg PO DAILY 01/16/23 02/06/23 Allergies Allergy/AdvReac Type Severity Reaction Status Date / Time adhesive tape Allergy Severe BLISTERS Verified 02/04/23 08:57 amiodarone Allergy Severe N/V, Verified 02/04/23 08:57 HEADACHE, HOSPITALIZED atorvastatin Allergy Severe SWELLING Verified 02/04/23 08:57 clindamycin Allergy Severe TACHYCARDIA Verified 02/04/23 08:57 gabapentin Allergy Severe CHF Verified 02/04/23 08:57 gemfibrozil Allergy Severe ELEVATED Verified 02/04/23 08:57 CHOLESTEROL nifedipine Allergy Severe SWELLING Verified 02/04/23 08:57 norfloxacin Allergy Severe SWELLING Verified 02/04/23 08:57 adhesive Allergy Intermediate Unknown Verified 02/04/23 08:57 chlorpheniramine [Ornade] Allergy Intermediate Unknown Verified 02/04/23 08:57 doxycycline Allergy Intermediate Unknown Verified 02/04/23 08:57 erythromycin base Allergy Intermediate Unknown Verified 02/04/23 08:57 flurbiprofen [Ansaid] Allergy Intermediate Unknown Verified 02/04/23 08:57 tetracycline Allergy Intermediate Unconscious Verified 02/04/23 08:57 tramadol [Ultram] Allergy Intermediate Unknown Verified 02/04/23 08:57 ciprofloxacin Allergy Unknown Unknown Verified 02/04/23 08:57 diclofenac Allergy Unknown Unknown Verified 02/04/23 08:57 hydroxyzine Allergy Unknown Unknown Verified 02/04/23 08:57 Penicillins Allergy Unknown Unknown Verified 02/04/23 08:57 propoxyphene Allergy Unknown Unknown Verified 02/04/23 08:57 terfenadine Allergy Unknown Unknown Verified 02/04/23 08:57 lactose Allergy Abdominal Verified 02/04/23 08:57 Pain butorphanol AdvReac Severe RESTLESSNES Verified 02/04/23 08:57 S cerivastatin AdvReac Severe ABDOMINAL Verified 02/04/23 08:57 PAIN, H/A dexamethasone AdvReac Severe IRRITATED Verified 02/04/23 08:57 EYES duloxetine AdvReac Severe H/A Verified 02/04/23 08:57 enalaprilat AdvReac Severe COUGH Verified 02/04/23 08:57 guaifenesin AdvReac Severe NERVOUSNESS Verified 02/04/23 08:57 hydrocod
[2023-02-11 14:57] VITALS: BP 96/71; PULSE 79; RESP 18; TEMP 36.9; O2SAT 97
== END 2023-02-11 14:59 | disposition home or self-care (01) ==
PROVIDERS: Emergency Provider Emergency Medicine; PCP Internal Medicine
DX: R19.7 Diarrhea, unspecified (principal); I25.10 Atherosclerotic heart disease of native coronary artery without angina pectoris; I13.0 Hypertensive heart and chronic kidney disease with heart failure and stage 1 through stage 4 chronic kidney disease, or unspecified chronic kidney disease; I50.9 Heart failure, unspecified; N18.30 Chronic kidney disease, stage 3 unspecified; E11.22 Type 2 diabetes mellitus with diabetic chronic kidney disease; E78.5 Hyperlipidemia, unspecified; Z86.73 Personal history of transient ischemic attack (TIA), and cerebral infarction without residual deficits
CPT/HCPCS: 99283; A9270

== ENCOUNTER 2023-02-27 11:46 | Outpatient (NON) | payer MEDICARE, SELFPAY | END 2023-02-27 11:47 | disposition home or self-care (01) | LOC: CHSLAB 03-22 13:43 | PROVIDERS: PCP Internal Medicine; Visit Provider Internal Medicine | DX: N39.0 Urinary tract infection, site not specified (principal); R82.90 Unspecified abnormal findings in urine | CPT/HCPCS: 87077; 87086; 87088; 87186 ==

== ENCOUNTER 2023-03-18 06:53 | Outpatient (NON) | payer MEDICARE, SELFPAY ==
[2023-03-18 07:03] LABS: Appearance Urine Cloudy (Clear); Bilirubin Urine Negative (Negative); Blood Urine 3+ (Negative); Color Urine Yellow (Yellow); Glucose Urine UA Negative (Negative); Ketones Urine Negative (Negative); Leukocyte Esterase Ur 3+ (Negative); Nitrate Urine Negative (Negative); Protein Urine Trace (Negative); Urobilinogen Urine 0.2 mg/dL (0.2-1.0); pH Urine 6.5 (5.0-8.0)
[2023-03-18 07:07] LABS: Add Urine Microscopic? YES; RBC Urine 21-50 /hpf (0-2)
[2023-03-18 07:08] LABS: Bacteria Urine 3+ /hpf; Squamous Epithelial Cell Urine Rare /hpf (Few); WBC Urine 51-100 /hpf (0-3)
== END 2023-03-18 06:54 | disposition home or self-care (01) ==
PROVIDERS: PCP Internal Medicine; Visit Provider Internal Medicine
DX: R82.90 Unspecified abnormal findings in urine (principal)
CPT/HCPCS: 81001; 87077; 87086; 87088; 87186

== ENCOUNTER 2023-04-04 06:56 | Outpatient (NON) | payer MEDICARE, SELFPAY ==
[2023-04-04 07:31] LABS: Appearance Urine Cloudy (Clear); Bilirubin Urine Negative (Negative); Blood Urine 1+ (Negative); Color Urine Yellow (Yellow); Glucose Urine UA Negative (Negative); Ketones Urine Negative (Negative); Leukocyte Esterase Ur 1+ (Negative); Nitrate Urine Positive (Negative); Protein Urine Negative (Negative); Specific Grav Ur 1.025 (1.010-1.020); Urobilinogen Urine 0.2 mg/dL (0.2-1.0)
[2023-04-04 07:40] LABS: Add Urine Microscopic? YES; Bacteria Urine 4+ /hpf; Squamous Epithelial Cell Urine Moderate /hpf (Few)
== END 2023-04-04 06:57 | disposition home or self-care (01) ==
LOC: CHSLAB 06:57
PROVIDERS: Visit Provider Internal Medicine
DX: N18.30 Chronic kidney disease, stage 3 unspecified (principal); N39.0 Urinary tract infection, site not specified
CPT/HCPCS: 81001; 87077; 87086; 87088; 87186

== ENCOUNTER 2023-05-09 06:35 | Outpatient (NON) | payer MEDICARE, SELFPAY ==
[2023-05-09 06:57] LABS: Appearance Urine Slightly Cloudy (Clear); Basophils Absolute Auto 0.04 K/mm3 (0.00-0.10); Basophils Percent Auto 0.4 % (0.0-1.0); Bilirubin Urine Negative (Negative); Blood Urine 3+ (Negative); Color Urine Light Yellow (Yellow); Glucose Urine UA Negative (Negative); Hematocrit 34.4 % (35.0-42.0); Hemoglobin 11.4 g/dL (11.7-13.8); Immature Granulocyte Absolute 0.08 K/mm3 (0.00-0.00); Immature Granulocyte Percent A 0.7 % (0.0-0.0); Ketones Urine Negative (Negative); Leukocyte Esterase Ur 3+ LEU/UL (Negative); Lymphocytes Absolute Auto 1.63 K/mm3 (1.10-4.50); Lymphocytes Percent Auto 14.8 % (18.0-42.0); Mean Corpuscular HGB Conc 33.1 g/dL (32.0-36.0); Mean Corpuscular Hemoglobin 30.5 pg (27.0-31.0); Mean Platelet Volume 10.3 fl (9.2-11.8); Monocytes Absolute Auto 0.67 K/mm3 (0.10-0.90); Monocytes Percent Auto 6.1 % (2.0-11.0); Neutrophils Absolute Auto 8.6 K/mm3 (1.7-7.2); Nitrate Urine Negative (Negative); Platelet Count Result 389 K/mm3 (150-420); Protein Urine Trace (Negative); Red Blood Count 3.74 M/mm3 (4.20-5.40); Red Cell Distribution Width 13.7 % (11.6-14.4); Specific Grav Ur <= 1.005 (1.010-1.020); Urobilinogen Urine 0.2 mg/dL (0.2-1.0)
[2023-05-09 06:58] LABS: Alanine Aminotransferase 23 U/L (14-59); Albumin Level 3.3 g/dL (3.4-5.0); Alkaline Phosphatase 103 U/L (46-116); Ammonia < 10 umol/L (11-32); Anion Gap 12 mmol/L (8-16); Aspartate Amino Transferase 11 U/L (15-37); Bilirubin,Total 0.4 mg/dL (0.00-1.00); Blood Urea Nitrogen 52 mg/dL (7-18); Calcium 9.3 mg/dL (8.5-10.1); Carbon Dioxide 24 mmol/L (21-32); Chloride 98 mmol/L (98-108); Estimated Glomerular Filt Rate 28; Glucose 101 mg/dL (70-99); Magnesium 1.9 mg/dL (1.8-2.4); Osmolality Calculated 292 mOsm/kg (285-295); Potassium 4.4 mmol/L (3.5-5.1); Sodium 134 mmol/L (136-145); Total Protein 8.2 g/dL (6.4-8.2)
[2023-05-09 07:01] LABS: Add Urine Microscopic? YES
[2023-05-09 07:02] LABS: Bacteria Urine 3+ /hpf; Squamous Epithelial Cell Urine Occasional /hpf (Few); WBC Urine 31-50 /hpf (0-3)
== END 2023-05-09 06:36 | disposition home or self-care (01) ==
LOC: CHSLAB 06:37
PROVIDERS: Visit Provider Internal Medicine
DX: I50.9 Heart failure, unspecified (principal); N18.9 Chronic kidney disease, unspecified; E11.9 Type 2 diabetes mellitus without complications; N39.0 Urinary tract infection, site not specified; R82.90 Unspecified abnormal findings in urine
CPT/HCPCS: 36415; 80053; 81001; 82140; 83735; 85025; 87077; 87086; 87088; 87186

== ENCOUNTER 2023-10-03 15:05 | Outpatient (NON) | payer MEDICARE, SELFPAY ==
[2023-10-03 15:13] LABS: Appearance Urine Clear (Clear); Bilirubin Urine Negative (Negative); Blood Urine 3+ (Negative); Color Urine Light Yellow (Yellow); Glucose Urine UA Negative (Negative); Ketones Urine Negative (Negative); Leukocyte Esterase Ur 3+ LEU/UL (Negative); Nitrate Urine Negative (Negative); Protein Urine 2+ (Negative); Urobilinogen Urine 0.2 mg/dL (0.2-1.0); pH Urine 5.5 (5.0-8.0)
[2023-10-03 15:27] LABS: Add Urine Microscopic? YES
[2023-10-03 15:28] LABS: Bacteria Urine 4+ /hpf; RBC Urine >75 /hpf (0-2); Squamous Epithelial Cell Urine Few /hpf (Few); WBC Urine 51-75 /hpf (0-3)
== END 2023-10-03 15:06 | disposition home or self-care (01) ==
LOC: CHSLAB 15:07
PROVIDERS: Visit Provider Internal Medicine
DX: N39.0 Urinary tract infection, site not specified (principal)
CPT/HCPCS: 81001; 87077; 87086; 87088; 87186

== ENCOUNTER 2023-10-09 09:21 | Outpatient (NON) | payer MEDICARE, SELFPAY ==
[2023-10-09 09:51] LABS: Basophils Absolute Auto 0.04 K/mm3 (0.00-0.10); Basophils Percent Auto 0.6 % (0.0-1.0); Hematocrit 35.2 % (35.0-42.0); Hemoglobin 11.4 g/dL (11.7-13.8); Immature Granulocyte Absolute 0.03 K/mm3 (0.00-0.00); Immature Granulocyte Percent A 0.4 % (0.0-0.0); Lymphocytes Absolute Auto 0.77 K/mm3 (1.10-4.50); Lymphocytes Percent Auto 10.9 % (18.0-42.0); Mean Corpuscular HGB Conc 32.4 g/dL (32.0-36.0); Mean Corpuscular Hemoglobin 28.7 pg (27.0-31.0); Mean Corpuscular Volume 88.7 fL (78.0-102.0); Mean Platelet Volume 9.9 fl (9.2-11.8); Monocytes Absolute Auto 0.58 K/mm3 (0.10-0.90); Monocytes Percent Auto 8.2 % (2.0-11.0); Neutrophils Absolute Auto 5.7 K/mm3 (1.7-7.2); Neutrophils Percent Auto 79.9 % (50.0-70.0); Platelet Count Result 225 K/mm3 (150-420); Red Blood Count 3.97 M/mm3 (4.20-5.40); Red Cell Distribution Width 14.7 % (11.6-14.4); White Blood Count 7.1 K/mm3 (4.8-10.8)
[2023-10-09 10:01] LABS: Hemoglobin A1C 6.7 % (<5.7)
[2023-10-09 10:19] LABS: Alanine Aminotransferase 26 U/L (14-59); Albumin Level 3.1 g/dL (3.4-5.0); Alkaline Phosphatase 111 U/L (46-116); Anion Gap 13 mmol/L (8-16); Aspartate Amino Transferase 14 U/L (15-37); Bilirubin,Total 0.5 mg/dL (0.00-1.00); Blood Urea Nitrogen 47 mg/dL (7-18); Calcium 8.3 mg/dL (8.5-10.1); Carbon Dioxide 25 mmol/L (21-32); Chloride 96 mmol/L (98-108); Estimated Glomerular Filt Rate 31; Glucose 218 mg/dL (70-99); Osmolality Calculated 297 mOsm/kg (285-295); Potassium 3.3 mmol/L (3.5-5.1); Sodium 134 mmol/L (136-145); Thyroid Stimulating Hormone 1.29 uIU/mL (0.36-3.74); Total Protein 6.4 g/dL (6.4-8.2)
== END 2023-10-09 09:22 | disposition home or self-care (01) ==
LOC: CHSLAB 09:29
PROVIDERS: Visit Provider Internal Medicine
DX: E78.5 Hyperlipidemia, unspecified (principal); E03.9 Hypothyroidism, unspecified; I48.91 Unspecified atrial fibrillation; I50.9 Heart failure, unspecified; N18.30 Chronic kidney disease, stage 3 unspecified; E11.9 Type 2 diabetes mellitus without complications
CPT/HCPCS: 36415; 80053; 83036; 84443; 85025

== ENCOUNTER 2023-11-09 06:56 | Outpatient (NON) | payer MEDICARE, SELFPAY ==
[2023-11-09 08:13] LABS: Appearance Urine Cloudy (Clear); Bilirubin Urine 2+ (Negative); Blood Urine 3+ (Negative); Glucose Urine UA Negative (Negative); Ketones Urine Trace (Negative); Leukocyte Esterase Ur 3+ LEU/UL (Negative); Nitrate Urine Positive (Negative); Protein Urine 3+ (Negative)
[2023-11-09 08:15] LABS: Add Urine Microscopic? YES; Bacteria Urine 2+ /hpf; Color Urine Dark Red (Yellow); RBC Urine >75 /hpf (0-2); Squamous Epithelial Cell Urine Few /hpf (Few); WBC Urine >75 /hpf (0-3)
== END 2023-11-09 06:57 | disposition home or self-care (01) ==
LOC: CHSLAB 06:58
PROVIDERS: Visit Provider Internal Medicine
DX: E11.9 Type 2 diabetes mellitus without complications (principal); N39.0 Urinary tract infection, site not specified
CPT/HCPCS: 81001; 87077; 87086; 87088; 87186